=== PATIENT | female | born 1970 | race Caucasian/White ===

== ENCOUNTER 2020-12-18 18:33 | Inpatient (IN) | payer MEDICARE, SELFPAY ==
[2020-12-18 19:10] VITALS: BP 149/101; PULSE 130; RESP 20; TEMP 38.3; O2SAT 94
--- NOTE | 2020-12-18 19:37 | HPE_ITS ---
Date of service: 12/18/20 Time of Service: 19:39 Assessment and Plan Assessment and plan (1) Pyelonephritis: Status: Acute Assessment and plan: Cont abx treatment with Rocephin 2mg IV daily. IV fluids. Outpt culture of urine was obtained at her PCP several days before admission and grew Proteus. (2) Nephrolithiasis: Status: Chronic Assessment and plan: There is a question of a small stone in the distal left ureter; positive left hydronephrosis. Will consult Urology. Pain control with prn Toradol, morphine and acetaminophen. (3) Depression: Status: Chronic Assessment and plan: Cont home amitriptyline and sertraline. Qualifiers: Depression Type: unspecified Qualified Code(s): F32.9 - Major depressive disorder, single episode, unspecified (4) GERD (gastroesophageal reflux disease): Status: Chronic Assessment and plan: Cont home Omeprazole History of Present Illness History of Present Illness Chief Complaint: left-sided flank pain Narrative: This is a 50 yo female with a PMH of multiple episodes of cystitis, pyelonephrit is, nephrolithiasis, HTN, depression, obesity, GERD. She presented to [facility] ED c/o left flank pain that began several hours prior to presentation. She denied F/C, emesis, diarrhea. She was afebrile. WBC count 10.8. CT abd/pelvis indivated moderate left hydronephrosis with a questionable punctate calculus in the distal left ureter. Stranding in the left perinephric region. ED physician at [facility] consulted Urology at [facility]. She had recently had repair of right ureteral scarring. They felt she could be treated for pyelonephritis and they had no bed availability. [facility] also had no bed availability so was accepted in transfer here. Rocephin given in the ED. Toradol, morphine and IV fluids also given. Review of Systems All systems reviewed & are unremarkable except as noted in HPI and below PFSH Social History Smoking/Tobacco Use Status: Never Smoking risk assessment performed?: Yes Alcohol Intake: never Substance use type: does not use Do you feel safe at home: Yes Do you feel safe in your relationship?: Yes Meds Allergies and Home Medications Allergies Allergy/AdvReac Type Severity Reaction Status Date / Time levofloxacin [From Levaquin] Allergy Unverified 12/18/20 20:30 Home Medications Medication Instructions Recorded Confirmed Type cefpodoxime 200 mg PO BID #20 tab 12/21/20 Rx Exam Const General: cooperative and no acute distress Nutritional Appearance: obese Orientation: alert and oriented x3 Eyes Sclera: sclerae normal Pupils: PERRL Neck Neck: full ROM and no JVD Resp Effort & Inspection: normal respiratory effort Auscultation: clear to auscultation bilaterally Cardio Rate: regular rate Rhythm: regular rhythm Heart Sounds: S1 normal and S2 normal GI Palpation: soft and nontender Back/Spine/Pelvis Back: CVA tenderness (Left) Skin General skin exam: no rashes or lesions noted Extrem General: no pedal edema and no calf tenderness Psych Appearance: grossly normal Mental Status: mental status grossly normal Speech and Movement: speech and movement normal Mood: congruent mood Affect: normal affect Results Labs Result diagrams: 12/21/20 06:33 12/20/20 06:44
[2020-12-18 19:52] VITALS: BP 149/101; PULSE 130; RESP 20; TEMP 38.3; O2SAT 94
[2020-12-18 20:03] VITALS: TEMP 38.3
[2020-12-18] MEDS: Acetaminophen 325 MG TAB 650 MG PO (20:03)
[2020-12-18] MEDS: Lactated Ringers 1,000 ML 125 ML IV (20:03)
[2020-12-18] MEDS: Amitriptyline 25 MG TAB PO (20:16)
[2020-12-18] MEDS: Gabapentin 600 MG TAB PO (20:16)
[2020-12-18] MEDS: Metoprolol 50 MG TAB PO (20:16)
[2020-12-18] MEDS: Mometasone 220 MCG 14 DOSE INHALER 2 PUFF IH (20:52)
[2020-12-18 21:01] VITALS: BP 143/92; PULSE 112; RESP 18; TEMP 38.2; O2SAT 94
[2020-12-18] MEDS: LORazepam 0.5 MG TAB PO (21:17)
[2020-12-18 23:47] VITALS: BP 111/79; PULSE 109; RESP 18; TEMP 38.6; O2SAT 91
[2020-12-19] VITALS (9 sets, daily range): BP systolic 123–160; BP diastolic 81–91; PULSE 91–114; RESP 16–18; TEMP 36.9–38.6; O2SAT 92–95
[2020-12-19] MEDS: Acetaminophen 325 MG TAB 650 MG PO ×3 (00:24→20:13)
[2020-12-19] MEDS: Albuterol HFA 8 GM 60 PUFF INH IH (00:24)
[2020-12-19] MEDS: Ketorolac 30 MG/ML VIAL IVP ×2 (01:47→23:42)
[2020-12-19] MEDS: Lactated Ringers 1,000 ML 125 ML IV ×3 (04:25→23:44)
[2020-12-19 06:52] LABS: Abs Immature Grans 0.03 10^3/uL (0.0-0.06); Absolute Basophil Count 0.04 10^3/uL (0.0-0.2); Absolute Eosinophil Count 0.14 10^3/uL (0.0-0.7); Absolute Lymphocyte Count 0.79 10^3/uL (1.2-3.4); Absolute Monocyte Count 0.64 10^3/uL (0.1-0.8); Basophils % 0.4; Eosinophils % 1.5; HCT 40.5 % (36.0-46.0); HGB 13.2 g/dL (11.2-15.7); Immature Grans % 0.3; Lymphocytes % 8.3; MCH 29.3 pg (27.0-33.0); MCHC 32.6 % (32.0-36.0); MCV 89.8 fL (80-95); MPV 8.7 fL (8.0-11.0); Monocytes % 6.7; Neutrophils % 82.8; Nucleated RBC 0 %; Platelet Count 105 10^3/uL (130-400); RBC 4.51 10^6/uL (3.93-5.22); RDW 13.3 % (11.7-14.6); WBC 9.54 10^3/uL (4.4-10.8)
[2020-12-19 07:23] LABS: Anion Gap 10.2 mmol/L (3-11); BUN 12 mg/dL (7-18); CO2 27.8 mmol/L (21.0-32.0); CREATININE 1.1 mg/dL (0.55-1.02); Calcium 8.8 mg/dL (8.5-10.1); Chloride 105 mmol/L (98-107); Estimated GFR 52.79 (mL/min/1.73m2); Glucose 126 mg/dL (74-106); Potassium 3.7 mmol/L (3.5-5.1); Sodium 143 mmol/L (136-145)
[2020-12-19 07:24] LABS: Magnesium 1.4 mg/dL (1.8-2.4)
[2020-12-19] MEDS: Metoprolol 50 MG TAB PO ×2 (07:34→20:15)
[2020-12-19] MEDS: Omeprazole 20 MG CAPCR 40 MG PO (07:34)
[2020-12-19] MEDS: Gabapentin 600 MG TAB PO ×3 (07:34→20:15)
[2020-12-19] MEDS: Amitriptyline 25 MG TAB PO ×2 (07:34→20:15)
[2020-12-19] MEDS: cefTRIAXone 2 GM/50 ML BAG IVPB (07:38)
[2020-12-19] MEDS: Sertraline 50 MG TAB PO (07:38)
[2020-12-19] MEDS: Enoxaparin 40 MG/0.4 ML SYR SC (07:38)
--- NOTE | 2020-12-19 09:08 | PDOC.CMIN ---
- If Service Date Differs Date of service: 12/19/20 Time of Service: 09:08 Care Management Initial Assess REASON FOR HOSPITALIZATION:: Pylonephritis PAST MEDICAL HISTORY/PAST SURGICAL HISTORY:: GERD. Depression. Nephrolithiasis PREVIOUS FUNCTIONAL STATUS/SOCIAL/FAMILY SUPPORTS:: Blessing lives with her in [place]. She is independent at baseline and drives. She has a son Amilcar Scott who is supportive. She shared that she has been on disability since 2006 due to chronic health issues. CURRENT FUNCTIONAL STATUS:: Blessing was laying in bed when CM met with her. She reports that she is tired but comfortable. She's had hematuria today and denies pain or dysuria. Blessing shares that she's had ongoing problems with her kidneys and saw a Urologist at [facility] for a ureter repair about 8 months ago. ADVANCE DIRECTIVES:: None on file, CM gave her a copy. Has patient been provided with info about the portal/API?: Yes Did the patient sign up for the portal?: No CODE STATUS:: Full Code INSURANCE COVERAGE / FINANCIAL ISSUES:: Medicare CURRENT HOME/COMMUNITY SERVICES/EQUIPMENT:: None PRIMARY CARE PHYSICIAN:: Teresa Gay PATIENT/FAMILY EDUCATION NEEDS:: Review discharge instructions and plan to follow up with outpatient providers, ask me three. TRANSPORTATION:: via private vehicle with . PLAN:: Discharge home when medically cleared. Follow up with PCP and urology.
[2020-12-19] MEDS: Mometasone 220 MCG 14 DOSE INHALER 2 PUFF IH ×2 (09:43→20:15)
--- NOTE | 2020-12-19 13:29 | W.UROLOGYCON ---
Date of service: 12/19/20 Time of Service: 13:29 Assessment and Plan Assessment and plan (1) Pyelonephritis: Status: Acute (2) Nephrolithiasis: Status: Chronic Assessment and plan: Clinically, she has improved since admission. Based on the reported size of any left-sided stone, I would expect that she would be able to pass her stone with conservative management. If she remains afebrile for the next 24 hours, I would have no problem with discharging her with an oral antibiotic and pain management. She is already established with the urology team at the [facility], so I would ask her to follow-up with them. I would be available for any emergent urologic care that might be necessary closer to home. History of Present Illness History of Present Illness Chief Complaint: Pyelonephritis Narrative: This is a 50-year-old woman who has received her previous urologic care at the [facility]. She was transferred to our facility yesterday from [facility]. She presented to [facility] with left flank pain, nausea, vomiting and fevers. She was evaluated with a CT scan (not available through our EMR) that describes a new onset of left hydronephrosis and the possibility of a small left distal ureteral stone. She does have a past history of recurrent urinary tract infections and pyelonephritis. She had a positive urine culture from this weekend, but had not yet been started on antibiotics. Her urine grew Proteus that was jimenez sensitive. Based on the emergency room providers notes from [facility], the urology team at the [facility] was consulted and recommended antibiotics and hydration for presumed pyelonephritis. No beds were available at [facility] or [facility], so she was admitted here at [facility]. Since her admission, her pain has improved. She has not passed a stone as far she knows. Previously, she has had multiple stone procedures, but they have all been on her right side. She has been able to pass small stones previously but has also required ESWL and ureteroscopy for the right side. Because of multiple procedures, she developed a ureteral stricture and underwent a ureteral stricture repair using a buccal mucosal graft. She estimates that her last stone procedure was about 6-12 months ago. She has undergone metabolic testing which she tells me that no specific abnormality has been identified Review of Systems Narrative: No fevers or chills since yesterday No vision change or dysphasia No diabetes or thyroid No shortness of breath, cough or hemoptysis No chest pain or palpitations Hx GERD. No hepatitis, ulcers, jaundice, diarrhea or constipation No seizures, strokes or peripheral neuropathy No bleeding disorders or anemia No gout PFSH Social History Smoking/Tobacco Use Status: Never Smoking risk assessment performed?: Yes Alcohol Intake: never Substance use type: does not use Do you feel safe at home: Yes Do you feel safe in your relationship?: Yes Exam Narrative Exam Narrative: She looks fairly comfortable at this point. She does not appear septic or toxic Her vital signs are documented elsewhere Her chest wall motion is normal. She is not short of breath at rest. There is no CVA tenderness. There is no guarding or rebound abdominal tenderness She is awake and alert I am unable to review her CT films at this time Results Last Vital Signs Temp 36.9 C 12/19/20 07:32 Pulse 97 H 12/19/20 07:32 Resp 18 12/19/20 07:32 BP 143/84 H 12/19/20 07:32 Pulse Ox 92 12/19/20 07:32 Labs Result diagrams: 12/19/20 06:28 12/19/20 06:28 Labs: Laboratory Results - last 24 hr 12/19/20 12/19/20 12/19/20 06:28 06:28 06:28 WBC 9.54 RBC 4.51 Hgb 13.2 Hct 40.5 MCV 89.8 MCH 29.3 MCHC 32.6 RDW 13.3 Plt Count 105 L MPV 8.7 Immature Gran % 0.3 Neutrophils % 82.8 Lymphocytes % 8.3 Monocytes % 6.7 Eosinophils % 1.5 Basophils % 0.4 Nucleated RBC % 0 Absolute Neutrophils 7.90 H Absolute Lymphocytes 0.79 L Absolute Monocytes 0.64 Absolute Eosinophils 0.14 Absolute Basophils 0.04 Sodium 143 Potassium 3.7 Chloride 105 Carbon Dioxide 27.8 Anion Gap 10.2 BUN 12 Creatinine 1.1 H Estimated GFR/1.73 m2 52.79 Glucose 126 H Calcium 8.8 Magnesium 1.4 L
--- NOTE | 2020-12-19 14:38 | W.PM.PROGNOT ---
Date of Service Date of service: 12/19/20 Time of Service: 14:38 Assessment and Plan Assessment and plan (1) Pyelonephritis: Status: Acute Assessment and plan: Cont abx treatment with Rocephin 2mg IV daily. IV fluids. Outpt culture of urine was obtained at her PCP several days before admission and grew Proteus. (2) Nephrolithiasis: Status: Chronic Assessment and plan: There is a question of a small stone in the distal left ureter; positive left hydronephrosis. Will consult Urology. Pain control with prn Toradol, morphine and acetaminophen. flomax added (3) Depression: Status: Chronic Assessment and plan: Cont home amitriptyline and sertraline. Qualifiers: Depression Type: unspecified Qualified Code(s): F32.9 - Major depressive disorder, single episode, unspecified (4) GERD (gastroesophageal reflux disease): Status: Chronic Assessment and plan: Cont home Omeprazole discussed with DR Arenas Subjective Subjective Patient reports: no new complaints, feels better, pain is less, tolerating liquids well, tolerating a regular diet, voiding w/o difficulty and afebrile Interval history since last seen: max temp overnight 38.6 Exam Const General: cooperative and no acute distress Nutritional Appearance: obese Orientation: alert and oriented x3 Eyes Sclera: sclerae normal Pupils: PERRL Neck Neck: full ROM and no JVD Resp Effort & Inspection: normal respiratory effort Auscultation: clear to auscultation bilaterally Cardio Rate: regular rate Rhythm: regular rhythm Heart Sounds: S1 normal and S2 normal GI Palpation: soft and nontender Back/Spine/Pelvis Back: CVA tenderness (Left) Skin General skin exam: no rashes or lesions noted Extrem General: no pedal edema and no calf tenderness Psych Appearance: grossly normal Mental Status: mental status grossly normal Speech and Movement: speech and movement normal Mood: congruent mood Affect: normal affect Objective Last Vital Signs Temp 36.9 C 12/19/20 07:32 Pulse 97 H 12/19/20 07:32 Resp 18 12/19/20 07:32 BP 143/84 H 12/19/20 07:32 Pulse Ox 92 12/19/20 07:32 Laboratory Results - last 24 hr 12/19/20 12/19/20 12/19/20 06:28 06:28 06:28 WBC 9.54 RBC 4.51 Hgb 13.2 Hct 40.5 MCV 89.8 MCH 29.3 MCHC 32.6 RDW 13.3 Plt Count 105 L MPV 8.7 Immature Gran % 0.3 Neutrophils % 82.8 Lymphocytes % 8.3 Monocytes % 6.7 Eosinophils % 1.5 Basophils % 0.4 Nucleated RBC % 0 Absolute Neutrophils 7.90 H Absolute Lymphocytes 0.79 L Absolute Monocytes 0.64 Absolute Eosinophils 0.14 Absolute Basophils 0.04 Sodium 143 Potassium 3.7 Chloride 105 Carbon Dioxide 27.8 Anion Gap 10.2 BUN 12 Creatinine 1.1 H Estimated GFR/1.73 m2 52.79 Glucose 126 H Calcium 8.8 Magnesium 1.4 L
[2020-12-19] MEDS: MAGNESIUM SULFATE 2 GM/50 ML BAG IVPB (14:58)
--- NOTE | 2020-12-19 16:17 | CHAPLAIN ---
Blessing was resting in bed when I visited. She said she is tired. Her youngest son starts kindergarten today and she is sad to be missing that.
[2020-12-19] MEDS: LORazepam 0.5 MG TAB PO (21:54)
[2020-12-19] MEDS: Normal Saline Flush 10 ML SYR IVP (23:43)
[2020-12-20] VITALS (8 sets, daily range): BP systolic 135–171; BP diastolic 90–105; PULSE 80–87; RESP 16–18; TEMP 36.7–38.1; O2SAT 91–95
[2020-12-20] MEDS: Acetaminophen 325 MG TAB 650 MG PO (02:17)
[2020-12-20] MEDS: Omeprazole 20 MG CAPCR 40 MG PO (06:45)
[2020-12-20 07:37] LABS: HCT 37.5 % (36.0-46.0); HGB 12.2 g/dL (11.2-15.7); MCH 29.5 pg (27.0-33.0); MCHC 32.5 % (32.0-36.0); MCV 90.8 fL (80-95); MPV 8.8 fL (8.0-11.0); RBC 4.13 10^6/uL (3.93-5.22); RDW 13.3 % (11.7-14.6); RDW-SD 44.5 fL; WBC 6.85 10^3/uL (4.4-10.8)
[2020-12-20 07:46] LABS: Anion Gap 7.6 mmol/L (3-11); BUN 11 mg/dL (7-18); CO2 29.4 mmol/L (21.0-32.0); Calcium 8.5 mg/dL (8.5-10.1); Chloride 107 mmol/L (98-107); Estimated GFR 58.93 (mL/min/1.73m2); Glucose 121 mg/dL (74-106); Potassium 3.5 mmol/L (3.5-5.1); Sodium 144 mmol/L (136-145)
[2020-12-20 07:57] LABS: Platelet Count 89 10^3/uL (130-400)
[2020-12-20] MEDS: Lactated Ringers 1,000 ML 125 ML IV ×2 (08:15→16:25)
[2020-12-20] MEDS: Mometasone 220 MCG 14 DOSE INHALER 2 PUFF IH ×2 (08:40→19:18)
--- NOTE | 2020-12-20 09:15 | PDOC.CMPRO ---
- If Service Date Differs Date of service: 12/20/20 Time of Service: 09:15 Care Management Progress Note S/O: Blessing was sitting up in bed when CM met with her. She was awake, alert, pleasant and easily engaged in conversation. She feels better today, but continues to have hematuria. She had a temp last night of 38C and is a little disappointed because it is her understanding that she has to go 24 hours without a fever before she is discharged. CM continues to follow. A: 50 year old female admitted to [facility] on 12/18/20 for pylonephritis P:Discharge home via private vehicle with when medically cleared. Follow up with PCP and urology. CM continues to support.
[2020-12-20] MEDS: Amitriptyline 25 MG TAB PO ×2 (09:31→19:18)
[2020-12-20] MEDS: Sertraline 50 MG TAB PO (09:31)
[2020-12-20] MEDS: Gabapentin 600 MG TAB PO ×3 (09:31→19:18)
[2020-12-20] MEDS: Metoprolol 50 MG TAB PO ×2 (09:31→19:18)
[2020-12-20] MEDS: Enoxaparin 40 MG/0.4 ML SYR SC (09:31)
[2020-12-20] MEDS: cefTRIAXone 2 GM/50 ML BAG IVPB (09:32)
[2020-12-20] MEDS: Normal Saline Flush 10 ML SYR IVP (09:32)
--- NOTE | 2020-12-20 10:03 | W.PM.PROGNOT ---
Date of Service Date of service: 12/20/20 Time of Service: 10:03 Assessment and Plan Assessment and plan (1) Pyelonephritis: Status: Acute Assessment and plan: Cont abx treatment with Rocephin 2mg IV daily, day 3. was still febrile last night. IV fluids. Outpt culture of urine was obtained at her PCP several days before admission and grew Proteus. (2) Nephrolithiasis: Status: Chronic Assessment and plan: Urology following. agrees with current plan. kidney function remains stable. Pain control with prn Toradol, morphine and acetaminophen. flomax added (3) Depression: Status: Chronic Assessment and plan: Cont home amitriptyline and sertraline. Qualifiers: Depression Type: unspecified Qualified Code(s): F32.9 - Major depressive disorder, single episode, unspecified (4) GERD (gastroesophageal reflux disease): Status: Chronic Assessment and plan: Cont home Omeprazole discussed with DR Arenas Subjective Subjective Patient reports: tolerating liquids well, voiding w/o difficulty and fever (max temp 38.6) Exam Const General: cooperative and no acute distress Nutritional Appearance: obese Orientation: alert and oriented x3 Eyes Sclera: sclerae normal Pupils: PERRL Neck Neck: full ROM and no JVD Resp Effort & Inspection: normal respiratory effort Auscultation: clear to auscultation bilaterally Cardio Rate: regular rate Rhythm: regular rhythm Heart Sounds: S1 normal and S2 normal GI Palpation: soft and nontender Back/Spine/Pelvis Back: CVA tenderness (Left) Skin General skin exam: no rashes or lesions noted Extrem General: no pedal edema and no calf tenderness Psych Appearance: grossly normal Mental Status: mental status grossly normal Speech and Movement: speech and movement normal Mood: congruent mood Affect: normal affect Objective Last Vital Signs Temp 36.7 C 12/20/20 06:41 Pulse 86 12/20/20 06:41 Resp 16 12/20/20 06:41 BP 135/94 H 12/20/20 06:41 Pulse Ox 93 12/20/20 06:41 Laboratory Results - last 24 hr 12/20/20 12/20/20 06:44 06:44 WBC 6.85 RBC 4.13 Hgb 12.2 Hct 37.5 MCV 90.8 MCH 29.5 MCHC 32.5 RDW 13.3 Plt Count 89 L MPV 8.8 Sodium 144 Potassium 3.5 Chloride 107 Carbon Dioxide 29.4 Anion Gap 7.6 BUN 11 Creatinine 1.0 Estimated GFR/1.73 m2 58.93 Glucose 121 H Calcium 8.5
[2020-12-20 12:09] LABS: Magnesium 1.8 mg/dL (1.8-2.4)
[2020-12-20] MEDS: LORazepam 0.5 MG TAB PO (21:11)
[2020-12-21] MEDS: Lactated Ringers 1,000 ML 125 ML IV ×2 (01:45→11:03)
[2020-12-21 06:45] LABS: HCT 35.6 % (36.0-46.0); HGB 11.6 g/dL (11.2-15.7); MCH 29.4 pg (27.0-33.0); MCHC 32.6 % (32.0-36.0); MCV 90.1 fL (80-95); MPV 8.9 fL (8.0-11.0); Platelet Count 102 10^3/uL (130-400); RBC 3.95 10^6/uL (3.93-5.22); RDW 12.9 % (11.7-14.6); WBC 6.35 10^3/uL (4.4-10.8)
[2020-12-21 07:43] VITALS: BP 160/92; PULSE 90; RESP 22; TEMP 36.7; O2SAT 91
[2020-12-21] MEDS: cefTRIAXone 2 GM/50 ML BAG IVPB (08:38)
[2020-12-21] MEDS: Amitriptyline 25 MG TAB PO (08:38)
[2020-12-21] MEDS: Normal Saline Flush 10 ML SYR IVP (08:38)
[2020-12-21] MEDS: Omeprazole 20 MG CAPCR 40 MG PO (08:38)
[2020-12-21] MEDS: Metoprolol 50 MG TAB PO (08:38)
[2020-12-21] MEDS: Sertraline 50 MG TAB PO (08:38)
[2020-12-21] MEDS: Gabapentin 600 MG TAB PO ×2 (08:38→13:52)
[2020-12-21] MEDS: Mometasone 220 MCG 14 DOSE INHALER 2 PUFF IH (10:00)
--- NOTE | 2020-12-21 13:43 | W.PM.DS.N ---
Date of service: 12/21/20 Time of Service: 13:43 DS: Diagnosis Discharge Diagnosis (1) Pyelonephritis: Status: Acute (2) Nephrolithiasis: Status: Chronic (3) Depression: Status: Chronic (4) GERD (gastroesophageal reflux disease): Status: Chronic Discharge Plan Disposition Patient Disposition: HOME Condition: Stable Discharge Details Reason For Visit: Pyelonephritis Admit Date/Time: 12/18/20 18:33 Admit Provider: Maurice Arenas Attending Provider: Maurice Arenas Primary Care Provider: Teresa Gay Hospital Course Hospital Course: This is a 50 year old female with a history of multiple episodes of cystitis, pyelonephritis, nephrolithiasis, HTN, depression, obesity, GERD. She presented to [facility] ED with left flank pain that began several hours prior to presentation. Her work up showed a WBC count 10.8. CT abd/pelvis with moderate left hydronephrosis with a questionable punctate calculus in the distal left ureter. Stranding in the left perinephric region. ED physician at [facility] consulted Urology at [facility]. She had recently had repair of right ureteral scarring. They felt she could be treated for pyelonephritis but they had no bed availability. [facility] also had no bed availability so we were called and she was accepted in transfer here. She was evaluated by Dr Maloney who was in agreement with continuing ceftriaxone and discharge to home once afebrile. She continued to spike fever in the evenings to 38.6. she has now been afebrile > 24 hours. she is feeling better. we will be discharging her on cefpodoxime to complete 10 more days. She will be discharged to home and will need f/u with her urologist oupatient. she is eating and drinking and no longer febrile. she is being discharged to home with no new services. discussed with Dr Arenas. Home Meds and New Rx's Prescriptions: New cefpodoxime 200 mg tablet 200 mg PO BID Qty: 20 RF: 0 Discharge Instructions Instructions: Kidney Infection (DC) Additional Instructions: drink at least 6-8 glasses of water daily to stay well hydrated. take medication as prescribed, even if you feel better follow up outpatient with your urologist as soon as possible Stand Alone Forms: Nursing Discharge Form Referrals: Teresa Gay [Primary Care Provider] - 01/08/21 8:00 am Activity:: Activity as Tolerated Equipment/Supplies:: No Equipment Needed Diet:: As Tolerated Discharge Orders Discharge Orders: Discharge Order (Routine); Ordered 12/21/20 Ordered By: Abby Espinoza DS: Summary Time Spent with Patient providing and/or coordinating discharge services: Greater than 30 minutes Status at Discharge Functional status at discharge: independent ambulation Overall status at discharge: patient is progressing back to baseline Mental Status: mental status grossly normal Speech and Movement: speech and movement normal Mood: congruent mood Affect: normal affect Exam Const General: cooperative and no acute distress Nutritional Appearance: obese Orientation: alert and oriented x3 Eyes Sclera: sclerae normal Pupils: PERRL Neck Neck: full ROM and no JVD Resp Effort & Inspection: normal respiratory effort Auscultation: clear to auscultation bilaterally Cardio Rate: regular rate Rhythm: regular rhythm Heart Sounds: S1 normal and S2 normal GI Palpation: soft and nontender Back/Spine/Pelvis Back: CVA tenderness (Left) Skin General skin exam: no rashes or lesions noted Extrem General: no pedal edema and no calf tenderness Psych Appearance: grossly normal Mental Status: mental status grossly normal Speech and Movement: speech and movement normal Mood: congruent mood Affect: normal affect DS: Data Vitals/I&O Vitals and I&O: Vital Signs Temperature 36.7 C 12/21/20 07:43 Temperature Source Tympanic 12/21/20 07:43 Pulse 90 12/21/20 07:43 Pulse Rhythm Regular 12/21/20 08:30 Respiratory Rate 22 12/21/20 07:43 Respiratory Effort 12/21/20 08:30 Respiratory Depth Normal 12/21/20 08:30 Respiratory Pattern Normal 12/21/20 08:30 Blood Pressure 160/92 H 12/21/20 07:43 Pulse Oximetry 91 L 12/21/20 07:43 Oxygen Delivery Method Room Air 12/21/20 07:43 Oxygen Flow Rate 0 12/21/20 07:43 Pain Level 0 12/21/20 07:43 Comment 12/20/20 23:39 Intake & Output 12/20/20 12/21/20 12/21/20 23:59 11:59 23:59 Intake Total 1600 / 2770 2000 / 2400 400 / 2400 Output Total 600 / 2000 900 / 900 Balance 1000 / 770 1100 / 1500 400 / 1500 Weight 110.3 kg Intake: IV 999 Oral 600 / 720 400 / 400 Output: Urine 600 / 2000 900 / 900 Other: Urine Color Light Jeimy Yellow Urine Appearance Clear Clear Urine Odor None Voiding Methods Toilet Toilet Data Completed and Pending Labs on day of discharge: Labs from last 24 hours 12/21/20 06:33 WBC 6.35 RBC 3.95 Hgb 11.6 Hct 35.6 L MCV 90.1 MCH 29.4 MCHC 32.6 RDW 12.9 Plt Count 102 L MPV 8.9 Preliminary micro results at discharge 12/18/20 22:00 Blood Culture - Preliminary Blood NO GROWTH 48 HOURS 12/18/20 22:00 Blood Culture - Preliminary Blood NO GROWTH 48 HOURS [facility] Social History Smoking/Tobacco Use Status: Never Smoking risk assessment performed?: Yes Alcohol Intake: never Substance use type: does not use Do you feel safe at home: Yes Do you feel safe in your relationship?: Yes
--- NOTE | 2020-12-21 16:15 | PDOC.CMDIS ---
- If Service Date Differs Date of service: 12/21/20 Time of Service: 16:15 LACE Index Scoring Tool - Questions: Length of Stay (in days): 1 Acuity (Admit via E.D.?): Yes Comorbidities: Diabetes w/o Complication, Any Tumor E.D. Visits: 1 - Answers: Total Score: 8 Risk of Readmission: Low Risk Care Management Discharge Reason for Hospitalization: Pylonephritis Discharge Plan: Blessing will return home today with no services. Her will drive her home via private vehicle. She will follow up with her PCP and discharge plan of care. She is happy to be going home. Patient/Family Education Needs: Review discharge instructions regarding activity levels and medications, discussion of self care needs including ask me three.
== END 2020-12-21 15:55 | disposition home or self-care (01) | DRG 690 ==
PROVIDERS: Nurse Practitioner Acute Care; Admitting Provider Family Medicine; PCP Nurse Practitioner Family; Visit Provider Family Medicine
DX: N13.6 Pyonephrosis (principal); Z68.41 Body mass index [BMI] 40.0-44.9, adult; K21.9 Gastro-esophageal reflux disease without esophagitis; F32.9 Major depressive disorder, single episode, unspecified; I10 Essential (primary) hypertension; E66.9 Obesity, unspecified; B96.4 Proteus (mirabilis) (morganii) as the cause of diseases classified elsewhere
CPT/HCPCS: 36410; 36415; 80048; 85027; 87040; 94640; 99222; J1650; 83735; 85025; 99232; 99233; 99239; J1885

== ENCOUNTER → 2020-12-19 07:49 | Outpatient (BNVA) | payer MEDICARE, SELFPAY | PROVIDERS: Visit Provider Nurse Practitioner Gerontology | DX: R69 Illness, unspecified (principal) ==

== ENCOUNTER 2022-07-24 16:05 | Outpatient (REF) | payer MEDICARE, SELFPAY ==
[2022-07-24 19:59] LABS: HCT 45.1 % (36.0-46.0); HGB 15.3 g/dL (11.2-15.7)
[2022-07-24 20:22] LABS: ALT 46 U/L (14-59); AST 40 U/L (15-37); Albumin 4.1 g/dL (3.4-5.0); Alkaline Phosphatase 115 U/L (46-116); Anion Gap 9.1 mmol/L (3-11); BUN 13 mg/dL (7-18); Bilirubin, Total 0.3 mg/dL (0.2-1.0); CO2 28.9 mmol/L (21.0-32.0); Calcium 9.5 mg/dL (8.5-10.1); Calculated LDL 135 mg/dL (<100); Chloride 103 mmol/L (98-107); Cholesterol 233 mg/dL (<200); Estimated GFR 68.63 (mL/min/1.73m2); Glucose 109 mg/dL (74-106); HDL Cholesterol 43 mg/dL (40-60); Magnesium 1.9 mg/dL (1.8-2.4); Sodium 141 mmol/L (136-145); Total Protein 8.1 g/dL (6.4-8.2); Triglyceride 279 mg/dL (<150)
[2022-07-25 18:20] LABS: Hemoglobin A1C 5.9 % (<5.7)
== END 2022-07-24 16:06 | disposition home or self-care (01) ==
LOC: NCHCN 16:05
PROVIDERS: Visit Provider Nurse Practitioner Family
DX: I10 Essential (primary) hypertension (principal); E78.5 Hyperlipidemia, unspecified; E66.01 Morbid (severe) obesity due to excess calories; R73.09 Other abnormal glucose
CPT/HCPCS: 80053; 80061; 83036; 83735; 85014; 85018

== ENCOUNTER 2023-03-12 12:08 | Outpatient (REF) | payer MEDICARE, SELFPAY ==
[2023-03-12 20:13] LABS: ALT 26 U/L (14-59); AST 23 U/L (15-37); Albumin 3.8 g/dL (3.4-5.0); Alkaline Phosphatase 97 U/L (46-116); Anion Gap 8.8 mmol/L (3-11); BUN 19 mg/dL (7-18); Bilirubin, Total 0.3 mg/dL (0.2-1.0); CO2 27.2 mmol/L (21.0-32.0); CREATININE 1.1 mg/dL (0.55-1.02); Calcium 9.3 mg/dL (8.5-10.1); Calculated LDL 118 mg/dL (<100); Chloride 105 mmol/L (98-107); Cholesterol 227 mg/dL (<200); Estimated GFR 60.84 (mL/min/1.73m2); Glucose 113 mg/dL (74-106); HDL Cholesterol 34 mg/dL (40-60); Potassium 3.9 mmol/L (3.5-5.1); Sodium 141 mmol/L (136-145); Total Protein 7.8 g/dL (6.4-8.2); Triglyceride 376 mg/dL (<150)
== END 2023-03-12 12:09 | disposition home or self-care (01) ==
LOC: NCHCN 12:08
PROVIDERS: PCP Nurse Practitioner Family; Visit Provider Nurse Practitioner Family
DX: I10 Essential (primary) hypertension (principal)
CPT/HCPCS: 80053; 80061

== ENCOUNTER 2023-09-16 13:03 | Outpatient (REF) | payer MEDICARE, SELFPAY ==
[2023-09-16 18:32] LABS: Hemoglobin A1C 5.7 % (<5.7)
[2023-09-16 18:34] LABS: ALT 30 U/L (14-59); AST 22 U/L (15-37); Albumin 4.1 g/dL (3.4-5.0); Alkaline Phosphatase 100 U/L (46-116); Anion Gap 6.3 mmol/L (3-11); BUN 26 mg/dL (7-18); Bilirubin, Total 0.5 mg/dL (0.2-1.0); CO2 29.7 mmol/L (21.0-32.0); CREATININE 1.2 mg/dL (0.55-1.02); Calcium 9.6 mg/dL (8.5-10.1); Calculated LDL 145 mg/dL (<100); Chloride 102 mmol/L (98-107); Cholesterol 253 mg/dL (<200); Estimated GFR 54.46 (mL/min/1.73m2); Glucose 112 mg/dL (74-106); HDL Cholesterol 39 mg/dL (40-60); Potassium 3.9 mmol/L (3.5-5.1); Sodium 138 mmol/L (136-145); Total Protein 8.1 g/dL (6.4-8.2); Triglyceride 347 mg/dL (<150)
== END 2023-09-16 13:04 | disposition home or self-care (01) ==
LOC: NCHCN 13:03
PROVIDERS: PCP Nurse Practitioner Family; Visit Provider Nurse Practitioner Family
DX: E78.5 Hyperlipidemia, unspecified (principal); R73.03 Prediabetes; I10 Essential (primary) hypertension
CPT/HCPCS: 80053; 80061; 83036

== ENCOUNTER 2023-12-17 23:59 | Outpatient (REF) | payer MEDICARE, SELFPAY ==
[2023-12-17 21:20] LABS: ALT 26 U/L (14-59); AST 22 U/L (15-37); Albumin 4.1 g/dL (3.4-5.0); Alkaline Phosphatase 106 U/L (46-116); Anion Gap 8.3 mmol/L (3-11); BUN 26 mg/dL (7-18); Bilirubin, Total 0.39 mg/dL (0.2-1.0); CO2 29.7 mmol/L (21.0-32.0); CREATININE 1.1 mg/dL (0.55-1.02); Calcium 9.4 mg/dL (8.5-10.1); Calculated LDL 60 mg/dL (<100); Chloride 103 mmol/L (98-107); Cholesterol 143 mg/dL (<200); Estimated GFR 60.46 (mL/min/1.73m2); Glucose 119 mg/dL (74-106); HDL Cholesterol 36 mg/dL (40-60); Potassium 4.3 mmol/L (3.5-5.1); Sodium 141 mmol/L (136-145); Total Protein 7.9 g/dL (6.4-8.2); Triglyceride 236 mg/dL (<150)
--- OUTSIDE RECORDS SUMMARY | 2023-12-18 00:12 | XMS_ITS | Continuity of Care Document ---
Author Organization [facility] Address [address] [place] [address] Care Team Providers Care Track Leader Name Role Phone Arabella Godinez Primary Care Physician Encounter [facility] [id number] Date(s): 09/05/22 - 09/05/[address] [address] Discharge Disposition: Home or Self Care Attending Physician: Arabella Godinez MANAGER HEAVY EQUIPMENT Admitting Physician: Arabella Godinez MANAGER HEAVY EQUIPMENT Referring Physician: Arabella Godinez MANAGER HEAVY EQUIPMENT Allergies, Adverse Reactions, Alerts Substance Reaction Severity Status ADHESIVE TAPE Blisters Other Moderate Active levoFLOXacin 1 Skin rash Moderate Active 1tolerates cipro, got rash from IV levaquin Assessment and Plan Future Appointments Immunizations Given and Recorded Vaccine Date Status Refusal Reason influenza virus vaccine, live 02/11/20 Recorded influenza virus vaccine, live 1 04/02/18 Recorded influenza virus vaccine, live 03/03/15 Recorded influenza virus vaccine, inactivated 02/12/13 Luis rded influenza virus vaccine, inactivated 02/26/12 Luis rded influenza virus vaccine, inactivated 01/18/11 Luis rded tetanus/diphth/pertuss (Tdap) adult/adol 03/16/12 Recorded varicella virus vaccine 04/28/00 Recorded tetanus-diphth toxoids (Td) adult/adol 04/28/00 Re corded 1Result Comment: vaccine tolerated well by pt. Medications albuterol 90 mcg/inh aerosol inhaler 1 puffs, Inhale, every 4 hr, PRN as needed for wheezing, # 6.7 g, 0 Refill(s), Pharmacy: [facility] #58, 165, cm, 04/19/22 15:03:00 EST, Height/Length Dosing, 112, kg, 04/19/22 15:03:00 EST, Weight Dosing Start Date: 04/19/22 Status: Ordered amitriptyline 25 mg oral tablet 25 mg = 1 tab, Oral, BID, # 180 tab, 0 Refill(s), Pharmacy: [facility] #58, 165, cm, 04/19/2215:03:00 EST, Height/Length Dosing, 112, kg, 04/19/22 15:03:00 EST, Weight Dosing Start Date: 04/23/22 Status: Ordered benzonatate 200 mg oral capsule 200 mg = 1 cap, Oral, TID, PRN as needed for cough, # 30 cap, 0 Refill(s), Pharmacy: [facility] #58, 165, cm, 04/19/22 15:03:00 EST, Height/Length Dosing, 112, kg, 04/19/22 15:03:00 EST, WeightDosing Start Date: 04/19/22 Status: Ordered chlordiazepoxide-clidinium 5 mg-2.5 mg oral capsule See Instructions, PRN other (see comment), 1 cap Oral every 4-6 hours as needed, # 180 cap, 0 Refill(s), Pharmacy: [facility] #58, 165, cm, 04/19/22 15:03:00 EST, Height/Length Dosing, 112, kg,04/19/22 15:03:00 EST, Weight Dosing Start Date: 04/23/22 Status: Ordered gabapentin 600 mg oral tablet 600 mg = 1 tab, Oral, TID, # 270 tab, 0 Refill(s), Pharmacy: [facility] #58, 165, cm, 04/19/22 15:03:00 EST, Height/Length Dosing, 112, kg, 04/19/22 15:03:00 EST, Weight Dosing Start Date: 04/23/22 Status: Ordered ibuprofen 800 mg oral tablet 800 mg = 1 tab, Oral, every 8 hr, # 30 tab, 0 Refill(s), Pharmacy: [facility] #58, 165, cm, 04/19/22 15:03:00 EST, Height/Length Dosing, 112, kg, 04/19/22 15:03:00 EST, Weight Dosing Start Date: 04/19/22 Status: Ordered metoprolol tartrate 50 mg oral tablet 50 mg = 1 tab, Oral, BID, for 90 days, # 180 tab, 0 Refill(s), Pharmacy: [facility] #58, 165,cm, 04/19/22 15:03:00 EST, Height/Length Dosing, 112, kg, 04/19/22 15:03:00 EST, Weight Dosing Start Date: 04/23/22 Status: Ordered omeprazole 40 mg oral delayed release capsule 40 mg = 1 cap, Oral, Daily, pt. needs appt. before next refill, # 90 cap, 0 Refill(s), Pharmacy: [facility] #58, 165, cm, 04/19/22 15:03:00 EST, Height/Length Dosing, 112, kg, 04/19/22 15:03:00EST, Weight Dosing Start Date: 07/23/22 Status: Ordered piroxicam 10 mg oral capsule 10 mg = 1 cap, Oral, BID, # 180 cap, 0 Refill(s), Pharmacy: [facility] #58, 165, cm, 04/19/2215:03:00 EST, Height/Length Dosing, 112, kg, 04/19/22 15:03:00 EST, Weight Dosing Start Date: 04/23/22 Status: Ordered sertraline 50 mg oral tablet 50 mg = 1 tab, Oral, Daily, # 90 tab, 0 Refill(s), Pharmacy: [facility] #58, 165, cm, 04/19/22 15:03:00 EST, Height/Length Dosing, 112, kg, 04/19/22 15:03:00 EST, Weight Dosing Start Date: 04/23/22 Status: Ordered Tylenol Extra Strength 500 mg oral tablet 500 mg = 1 tab, Oral, every 4 hr, PRN as needed for pain, # 24 tab, 0 Refill(s), Pharmacy: [facility] #58, 165, cm, 04/19/22 15:03:00 EST, Height/Length Dosing, 112, kg, 04/19/22 15:03:00 EST, Weight Dosing Start Date: 04/19/22 Status: Ordered Problem List Condition Confirmation Course Effective Dates Status H ealth Status Informant Abdominal pain Confirmed Active Acute complication due to diabetes mellitus 1 Confirmed Active Chronic interstitial cystitis Confirmed Active Clostridioides difficile infection Confirmed 05/10/20 Active Cyst of ovary Confirmed Active Depressive disorder Confirmed Active Endometriosis (clinical) Confirmed Active ESBL - Extended spectrum shpf-nvdylsifn-nqrfil ing bacteria 2 Confirmed 08/14/20 Active Generalized intra-abdominal and pelvic swelling, mass and lump Confirmed Active Heartburn Confirmed Active Human papilloma virus infection Confirmed Active Hyperlipidemia Confirmed Active Hypertensive disorder Confirmed Active Finger injury Confirmed Active Insomnia Confirmed Active Irritable bowel syndrome Confirmed Active Kidney stone Confirmed Active Lack of energy Confirmed Active Liver function tests abnormal Confirmed Active Low back pain Confirmed Active Recurrent urinary tract infection Confirmed 08/24/20 Active 1From 07-16-2021 visit: Labs to make sure blood sugars remain controlled. 2ESBL in urine Procedures Procedure Date Related Diagnosis Body Site Status Cystoscopy 1 05/28/20 Completed Extracorporeal shockwave lit hotripsy for renal calculus 12/26/17 Completed Total hysterectomy 2 07/11/16 Comp leted ESWL of kidney 3 02/26/16 Complete d Drainage of ovarian cyst 4 02/22/09 Completed Laparoscopy with removal of adnexal structures 5 12/01/05 Completed Diagnostic laparoscopy 6 05/13/04 Completed Tubal ligation 1995 Completed 1per [facility] urology 2with right salpingectomy, USVVS: Pelvic pain and uterine prolapse. 3Right, kidney stones crushed and Lithotripsy in left Kidney in 03/2016 4right side, Dr [facility]za at [facility] 5Left ovarian cyst 6Ablation of endometriosis and removal of cervical polyp. Social History Social History Type Response Smoking Status Smoking tobacco use: Former tobacco user;Never; Number of years: 14; 1 entered on: 10/10/21 Sex Female 1quit 2008 Patient Care team information Care Team Personnel Name: Arabella Godinez MANAGER HEAVY EQUIPMENT Position: PowerChart View Only Member Role: Primary Care Physician Address: Address: [address] [place] [address]- [place] Care Team Related Persons Name: WILLOWHIRA Address: Home [address] [facility], [id number]
--- OUTSIDE RECORDS SUMMARY | 2023-12-18 00:12 | XMS_ITS | Continuity of Care Document ---
Author Organization [facility] Address [address] [place] [address] Care Team Providers Care Repair Servicer Name Role Phone Arabella Godinez Primary Care Physician [phone] [facility] [id number] Date(s): 07/31/22 - 07/31/[address] [address] Discharge Disposition: Home or Self Care Attending Physician: Arabella Godinez HOP SEPARATOR Admitting Physician: Arabella Godinez HOP SEPARATOR Referring Physician: Arabella Godinez HOP SEPARATOR Allergies, Adverse Reactions, Alerts Substance Reaction Severity [...] wheezing, # 6.7 g, 0 Refill(s), Pharmacy: [facility], 165, cm, 04/19/22 15:03:00 EST, Height/Length Dosing, 112, kg, 04/19/22 15:03:00 EST, Weight Dosing Start Date: 04/19/22 Status: Ordered amitriptyline 25 mg oral tablet 25 mg = 1 tab, Oral, BID, # 180 tab, 0 Refill(s), Pharmacy: [facility] #58, 165, cm, 04/19/2215:03:00 EST, Height/Length Dosing, 112, kg, 04/19/22 15:03:00 EST, Weight Dosing Start Date: 04/23/22 Status: Ordered benzonatate 200 mg oral capsule 200 mg = 1 cap, Oral, TID, PRN as needed for cough, # 30 cap, 0 Refill(s), Pharmacy: [facility] #58, 165, cm, 04/19/22 15:03:00 EST, Height/Length Dosing, 112, kg, 04/19/22 15:03:00 EST, WeightDosing Start Date: 04/19/22 Status: Ordered chlordiazepoxide-clidinium 5 mg-2.5 mg oral capsule See Instructions, PRN other (see comment), 1 cap Oral every 4-6 hours as needed, # 180 cap, 0 Refill(s), Pharmacy: [facility] #58, 165, cm, 04/19/22 15:03:00 EST, Height/Length Dosing, 112, kg,04/19/22 15:03:00 EST, Weight Dosing Start Date: 04/23/22 Status: Ordered gabapentin 600 mg oral tablet 600 mg = 1 tab, Oral, TID, # 270 tab, 0 Refill(s), Pharmacy: [facility] #58, 165, cm, 04/19/22 15:03:00 EST, Height/Length Dosing, 112, kg, 04/19/22 15:03:00 EST, Weight Dosing Start Date: 04/23/22 Status: Ordered ibuprofen 800 mg oral tablet 800 mg = 1 tab, Oral, every 8 hr, # 30 tab, 0 Refill(s), Pharmacy: [facility] #58, 165, cm, 04/19/22 15:03:00 EST, Height/Length Dosing, 112, kg, 04/19/22 15:03:00 EST, Weight Dosing Start Date: 04/19/22 Status: Ordered metoprolol tartrate 50 mg oral tablet 50 mg = 1 tab, Oral, BID, for 90 days, # 180 tab, 0 Refill(s), Pharmacy: [facility] #58, 165,cm, 04/19/22 15:03:00 EST, Height/Length Dosing, 112, kg, 04/19/22 15:03:00 EST, Weight Dosing Start Date: 04/23/22 Status: Ordered omeprazole 40 mg oral delayed release capsule 40 mg = 1 cap, Oral, Daily, pt. needs appt. before next refill, # 90 cap, 0 Refill(s), Pharmacy: [facility] #58, 165, cm, 04/19/22 15:03:00 EST, Height/Length Dosing, 112, kg, 04/19/22 15:03:00EST, Weight Dosing Start Date: 07/23/22 Status: Ordered piroxicam 10 mg oral capsule 10 mg = 1 cap, Oral, BID, # 180 cap, 0 Refill(s), Pharmacy: [facility] #58, 165, cm, 04/19/2215:03:00 EST, Height/Length Dosing, 112, kg, 04/19/22 15:03:00 EST, Weight Dosing Start Date: 04/23/22 Status: Ordered sertraline 50 mg oral tablet 50 mg = 1 tab, Oral, Daily, # 90 tab, 0 Refill(s), Pharmacy: [facility] #58, 165, cm, 04/19/22 15:03:00 EST, Height/Length Dosing, 112, kg, 04/19/22 15:03:00 EST, Weight Dosing Start Date: 04/23/22 Status: Ordered Tylenol Extra Strength 500 mg oral tablet 500 mg = 1 tab, Oral, every 4 hr, PRN as needed for pain, # 24 tab, 0 Refill(s), Pharmacy: [facility] #58, 165, cm, 04/19/22 15:03:00 EST, Height/Length [...] (clinical) Confirmed Active ESBL - Extended spectrum cglt-lqtsotxoa-plgreq ing bacteria 2 Confirmed 08/14/20 Active Generalized [...] in 03/2016 4right side, Dr Cardoza at [facility] 5Left ovarian cyst 6Ablation of endometriosis and removal of cervical polyp. Social History Social History Type Response Smoking Status Smoking tobacco use: Former tobacco user;Never; Number of years: 14; 1 entered on: 10/10/21 Sex Female 1quit 2008 Patient Care team information Care Team Personnel Name: Arabella Godinez HOP SEPARATOR Position: PowerChart View Only Member Role: Primary Care Physician Address: Address: [address] [place] [address]- [place] Care Team Related Persons Name: JEAN DAUGHERTYANCELMO Address: Home [address] [facility] [facility], [id number]
--- OUTSIDE RECORDS SUMMARY | 2023-12-18 00:12 | XMS_ITS | Clinical Summary ---
Author Organization [facility] [place] [address] Care Team Providers Care Rate Marker Name Role Phone Arabella Godinez STEEL SHOT HEADER OPERATOR Primary Care Provider [phone] Allergies Active Allergy Reactions Criticality Noted Date Comments Cis Free Text Allergy Medium silk tape. CIS - blister and rash Levofloxacin Hives,Itching Medium 09/10/2013 CIS - Rash Medications Medication Sig Dispensed Refills Start Date End Date Status amitriptyline (ELAVIL) 25 mg tablet 25 MG = 1 Tablet(s), PO, Twice daily 08/01/2009 Active piroxicam (FELDENE) 10 mg capsule 10 MG PO Twice daily 06/15/2010 Active gabapentin (NEURONTIN) 300 mg capsule 300 MG = 1 Capsule(s), PO, Three times daily 08/01/2009 Active clidinium-chlordiazeP OXIDE (LIBRAX, WITH CLIDINIUM,) 5-2.5 mg per capsule 1 Capsule(s), PO, Once daily and PRN 08/01/2009 Active METOPROLOL TARTRATE (LOPRESSOR ORAL) 08/01/2009 Active acetaminophen (TYLENOL) 325 mg tablet 08/01/2009 Active doxycycline (VIBRA-TABS) 100 mg Tablet 07/07/2017 Active nitrofurantoin (MACRODANTIN) 50 mg Capsule TAKE ONE CAPSULE BY MOUTH EVERY DAY 12 11/18/2017 Active pantoprazole (PROTONIX) 40 mg Tablet, Delayed Release (E.C.) Take 40 mg by mouth. Active phenazopyridine (PYRIDIUM) 200 mg Tablet Take 200 mg by mouth. 03/18/2016 Active ranitidine (ZANTAC) 150 mg Tablet TAKE ONE TABLET BY MOUTH TWICE A DAY 4 11/18/2017 Active sertraline (ZOLOFT) 50 mg Tablet TAKE 1 2 TABLET BY MOUTH DAILY FOR 1 WEEK THEN INCREASE TO ONE TABLET DAILY 2 10/08/2017 Active Active Problems Problem Noted Date Diagnosed Date Patellofemoral pain syndrome of left knee 2017 Immunizations Name Administration Dates Next Due Influenza Vaccine, Whole 01/17/2009,03/03/2007 Family History Medical History Relation Comments Cancer Father Diabetes Father Cancer Maternal Aunt Cancer Maternal Grandmother Diabetes Maternal Grandmother Cancer Mother Diabetes Mother Cancer Paternal Grandmother Diabetes Paternal Grandmother Relation Status Comments Father Maternal Aunt Maternal Grandmother Mother Paternal Grandmother Social History Tobacco Use Types Packs/Day Years Used Date Smoking Tobacco: Former Smokeless Tobacco: Never Comments:quit 2006 Alcohol Use Standard Drinks/Week Comments No 0 (1 standard drink = 0.6 oz pur e alcohol) Sex and Gender Information Value Date Recorded Sex Assigned at Not on file Gender Identity Not on file Sexual Orientation Not on file Last Filed Vital Signs Vital Sign Reading Time Taken Comments Blood Pressure 145/92 11/26/2017 10:07 AM EDT Pulse 81 11/26/2017 10:07 AM EDT Temperature - - Respiratory Rate - - Oxygen Saturation - - Inhaled Oxygen Concentration - - Weight 109.3 kg (241 lb) 11/26/2017 10: 07 AM EDT shoes on, clothed Height 165.1 cm (5' 5) 11/26/2017 10:0 7 AM EDT pt reported Body Mass Index 40.1 11/26/2017 10:07 AM EDT Plan of Treatment Health Maintenance Due Date Last Done Comments CT Colonography 1971 Colonoscopy 1971 Colorectal Cancer Screening 1971 FIT DNA 1971 FIT 1971 Sigmoidoscopy (10 year) with FIT yearly 1971 Sigmoidoscopy 1971 HIV screen 07/25/1989 Hepatitis C Screening 07/25/1989 Hepatitis B vaccine (0-59 yrs) (1) 07/25/1990 Tdap adult 07/25/1990 Tetanus vaccine 07/25/1990 HPV test 07/25/2001 PAP Smear 07/25/2001 Breast Cancer Share Decision Needed 2011 Breast Cancer screening 2011 Zoster vaccine (1 of 2) 07/25/2021 Covid-19 Vaccine ( - season) 2022 Influenza (Flu) vaccine (1 o f 1 - Influenza standard series) 12/28/2023 01/17/2009, 03/03/2007 Care Teams Rate Marker Relationship Specialty Start Date End Date Arabella Godinez APRN [address] [place] [address] PCP - General Family Medicine 01/16/23
--- OUTSIDE RECORDS SUMMARY | 2023-12-18 00:12 | XMS_ITS | Continuity of Care Document ---
Author Organization [facility] Address [address] [place] [address] Care Team Providers Care Telecom Analyst Name Role Phone Arabella Godinez Primary Care Physician [phone] [facility] [id number] Date(s): 11/07/23 - 11/07/[address] [address] Discharge Disposition: Home or Self Care Attending Physician: Arabella Godinez MANAGER PRODUCE Admitting Physician: Arabella Godinez MANAGER PRODUCE Referring Physician: Arabella Godinez MANAGER PRODUCE Allergies, Adverse Reactions, Alerts Substance Reaction Severity Status ADHESIVE TAPE Blisters Other Moderate Active levoFLOXacin 1 Skin rash Moderate Active 1tolerates cipro, got rash from IV levaquin Immunizations Given and Recorded Vaccine Date Status [...] wheezing, # 6.7 g, 0 Refill(s), Pharmacy: [facility], 165, cm, 04/19/22 15:03:00 EST, Height/Length Dosing, 112, kg, 04/19/22 15:03:00 EST, Weight Dosing Start Date: 04/19/22 Status: Ordered amitriptyline 25 mg oral tablet 25 mg = 1 tab, Oral, BID, # 180 tab, 0 Refill(s), Pharmacy: [facility], 165, cm, 04/19/2215:03:00 EST, Height/Length Dosing, 112, kg, 04/19/22 15:03:00 EST, Weight Dosing Start Date: 04/23/22 Status: Ordered benzonatate 200 mg oral capsule 200 mg = 1 cap, Oral, TID, PRN as needed for cough, # 30 cap, 0 Refill(s), Pharmacy: [facility], 165, cm, 04/19/22 15:03:00 EST, Height/Length Dosing, 112, kg, 04/19/22 15:03:00 EST, WeightDosing Start Date: 04/19/22 Status: Ordered chlordiazepoxide-clidinium 5 mg-2.5 mg oral capsule See Instructions, PRN other (see comment), 1 cap Oral every 4-6 hours as needed, # 180 cap, 0 Refill(s), Pharmacy: [facility], 165, cm, 04/19/22 15:03:00 EST, Height/Length Dosing, 112, kg,04/19/22 15:03:00 EST, Weight Dosing Start Date: 04/23/22 Status: Ordered gabapentin 600 mg oral tablet 600 mg = 1 tab, Oral, TID, # 270 tab, 0 Refill(s), Pharmacy: [facility], 165, cm, 04/19/22 15:03:00 EST, Height/Length Dosing, 112, kg, 04/19/22 15:03:00 EST, Weight Dosing Start Date: 04/23/22 Status: Ordered ibuprofen 800 mg oral tablet 800 mg = 1 tab, Oral, every 8 hr, # 30 tab, 0 Refill(s), Pharmacy: [facility], 165, cm, 04/19/22 15:03:00 EST, Height/Length Dosing, 112, kg, 04/19/22 15:03:00 EST, Weight Dosing Start Date: 04/19/22 Status: Ordered metoprolol tartrate 50 mg oral tablet 50 mg = 1 tab, Oral, BID, for 90 days, # 180 tab, 0 Refill(s), Pharmacy: [facility], 165,cm, 04/19/22 15:03:00 EST, Height/Length Dosing, 112, kg, 04/19/22 15:03:00 EST, Weight Dosing Start Date: 04/23/22 Status: Ordered omeprazole 40 mg oral delayed release capsule 40 mg = 1 cap, Oral, Daily, pt. needs appt. before next refill, # 90 cap, 0 Refill(s), Pharmacy: [facility], 165, cm, 04/19/22 15:03:00 EST, Height/Length Dosing, 112, kg, 04/19/22 15:03:00EST, Weight Dosing Start Date: 07/23/22 Status: Ordered piroxicam 10 mg oral capsule 10 mg = 1 cap, Oral, BID, # 180 cap, 0 Refill(s), Pharmacy: [facility], 165, cm, 04/19/2215:03:00 EST, Height/Length Dosing, 112, kg, 04/19/22 15:03:00 EST, Weight Dosing Start Date: 04/23/22 Status: Ordered sertraline 50 mg oral tablet 50 mg = 1 tab, Oral, Daily, # 90 tab, 0 Refill(s), Pharmacy: [facility], 165, cm, 04/19/22 15:03:00 EST, Height/Length Dosing, 112, kg, 04/19/22 15:03:00 EST, Weight Dosing Start Date: 04/23/22 Status: Ordered Tylenol Extra Strength 500 mg oral tablet 500 mg = 1 tab, Oral, every 4 hr, PRN as needed for pain, # 24 tab, 0 Refill(s), Pharmacy: [facility], 165, cm, 04/19/22 15:03:00 EST, Height/Length Dosing, 112, kg, 04/19/22 15:03:00 EST, Weight Dosing Start Date: 04/19/22 Status: Ordered Problem List Condition Confirmation Course Effective Dates Status H ealth Status Informant Abdominal pain Confirmed Active Acute complication due to diabetes mellitus 1 Confirmed Active Bacteremia Confirmed 03/04/16 Active Chronic interstitial cystitis Confirmed Active Clostridioides difficile infection Confirmed 05/10/20 Active Cyst of ovary Confirmed Active Depressive disorder Confirmed Active Endometriosis (clinical) Confirmed Active ESBL - Extended spectrum yfln-hfotsevhm-daaqkb ing bacteria 2 Confirmed 08/14/20 Active Fever Confirmed 03/01/16 Active Generalized intra-abdominal and pelvic swelling, mass and lump Confirmed Active Heartburn Confirmed Active Human papilloma virus infection Confirmed Active Hydronephrosis 3 Confirmed 05/22/20 Active Hyperlipidemia Confirmed Active Hypertensive disorder Confirmed Active 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 Confirmed 03/01/16 Active Finger injury Confirmed Active Insomnia Confirmed Active Irritable bowel syndrome Confirmed Active Kidney stone Confirmed Active Lack of energy Confirmed Active Left flank pain Confirmed 03/04/16 Active Liver function tests abnormal Confirmed Active Low back pain Confirmed Active Patellofemoral syndrome of left knee Confirmed 11/26/17 Active Recurrent urinary tract infection Confirmed 08/24/20 Active Sepsis Confirmed 03/04/16 Active 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 2ESBL in urine 3Outside Source Comment: Overview: Added automatically from request for surgery [id number] 4Outside Source Comment: Overview: Added automatically from request for surgery [id number] Procedures Procedure Date Related Diagnosis Body Site Status Cystoscopy 1 05/28/20 Completed Extracorporeal shockwave lit hotripsy for renal calculus 12/26/17 Completed Total hysterectomy 2 07/11/16 Comp leted ESWL of kidney 3 02/26/16 Complete d Drainage of ovarian cyst 4 02/22/09 Completed Laparoscopy with removal of adnexal structures 5 12/01/05 Completed Diagnostic laparoscopy 6 05/13/04 Completed Tubal ligation 1995 Completed 1per [facility] urology 2with right salpingectomy, USVVS: Pelvic pain and uterine prolapse. 3Right, kidney stones crushed and Lithotripsy in left Kidney in 03/2016 4right side, Dr Cardoza at [facility] 5Left ovarian cyst 6Ablation of endometriosis and removal of cervical polyp. Social History Social History Type Response Smoking Status Smoking tobacco use: Former tobacco user;Never; Number of years: 14; 1 entered on: 10/10/21 Sex Female 1quit 2008 Patient Care team information Care Team Personnel Name: Arabella Godinez MANAGER PRODUCE Position: PowerChart View Only Member Role: Primary Care Physician Address: Address: [address] [place] [id number] Care Team Related Persons Name: XIMENA ARROYO Address: [facility] Address: Home [address] [facility], [id number] Address: Mailing [address] [place] [address] [place] [facility] [id number] Name: HIRA DAUGHERTY Address: [place] [address] [place] [address], [id number]
--- OUTSIDE RECORDS SUMMARY | 2023-12-18 00:12 | XMS_ITS | Continuity of Care Document ---
Author Organization [facility] Address [address] [place] [address] Care Team Providers Care Programming Specialist Name Role Phone Victor Hugo Teresa Paul Primary Care Physician Encounter NCTY_OR Date(s): 04/19/22 - 04/19/[address] [id number] Encounter Diagnosis Influenza(Discharge Diagnosis) - 04/19/22 Discharge Disposition: Home or Self Care Attending Physician: Osman Payton MD Admitting Physician: Osman Payton MD Allergies, Adverse Reactions, Alerts Substance Reaction Severity Status ADHESIVE TAPE Blisters Other Moderate Active levoFLOXacin 1 Skin rash Moderate Active 1tolerates cipro, got rash from IV levaquin Functional Status 04/19/22 Family Member Travel History No recent t ravel Recent Travel History No recent travel Other exposure to Infectious Disease Non e Immunizations Given and Recorded Vaccine Date Status [...] wheezing, # 6.7 g, 0 Refill(s), Pharmacy: [facility], 165, cm, 04/19/22 15:03:00 EST, Height/Length Dosing, 112, kg, 04/19/22 15:03:00 EST, Weight Dosing Start Date: 04/19/22 Status: Ordered amitriptyline 25 mg oral tablet 1 tab, Oral, BID, 0 Refill(s) Start Date: 10/15/21 Status: Ordered benzonatate 200 mg oral capsule 200 mg = 1 cap, Oral, TID, PRN as needed for cough, # 30 cap, 0 Refill(s), Pharmacy: [facility], 165, cm, 04/19/22 15:03:00 EST, Height/Length Dosing, 112, kg, 04/19/22 15:03:00 EST, WeightDosing Start Date: 04/19/22 Status: Ordered chlordiazepoxide-clidinium 5 mg-2.5 mg oral capsule 1 cap, Oral, PRN other (see comment), every 4 to 6 hours prn, 0 Refill(s) Start Date: 10/15/21 Status: Ordered gabapentin 600 mg oral tablet 1 tab, Oral, TID, 0 Refill(s) Start Date: 10/15/21 Status: Ordered ibuprofen 800 mg oral tablet 800 mg = 1 tab, Oral, every 8 hr, # 30 tab, 0 Refill(s), Pharmacy: [facility], 165, cm, 04/19/22 15:03:00 EST, Height/Length Dosing, 112, kg, 04/19/22 15:03:00 EST, Weight Dosing Start Date: 04/19/22 Status: Ordered metoprolol tartrate 50 mg oral tablet 1 tab, Oral, BID, for 90 days, 0 Refill(s) Start Date: 10/15/21 Status: Ordered omeprazole 40 mg oral delayed release capsule 1 cap, Oral, Daily, 0 Refill(s) Start Date: 10/15/21 Status: Ordered piroxicam 10 mg oral capsule 1 cap, Oral, BID, 0 Refill(s) Start Date: 10/15/21 Status: Ordered sertraline 50 mg oral tablet 1 tab, Oral, Daily, 0 Refill(s) Start Date: 10/15/21 Status: Ordered Tylenol Extra Strength 500 mg oral tablet 500 mg = 1 tab, Oral, every 4 hr, PRN as needed for pain, # 24 tab, 0 Refill(s), Pharmacy: [facility], 165, cm, 04/19/22 15:03:00 EST, Height/Length [...] (clinical) Confirmed Active ESBL - Extended spectrum oxwx-bmquulqyf-owvhem ing bacteria 2 Confirmed 08/14/20 Active Generalized [...] 05/13/04 Completed Tubal ligation 1995 Completed 1per [facility] urology 2with right salpingectomy, [facility]: Pelvic pain and uterine prolapse. 3Right, kidney stones crushed and Lithotripsy in left Kidney in 03/2016 4right side, Dr Cardoza at [facility] 5Left ovarian cyst 6Ablation of endometriosis and removal of cervical polyp. Results Laboratory List Name Date Strep A (Adali) 04/19/22 Most recent to oldest [Reference Range]: 1 Strep A- Adali [Negative] Negative (04/19/22 3:15 PM) Vital Signs Most recent to oldest [Reference Range]: 1 Temperature Temporal Artery [36-38 Deg C ] 36.6 Deg C (04/19/22 2:42 PM) Peripheral Pulse Rate [60-100 bpm] 98 bp m (04/19/22 2:42 PM) Respiratory Rate [12-24 br/min] 16 br/mi n (04/19/22 2:42 PM) Blood Pressure [90-140/60-90 mmHg] 166/9 0mmHg *HI* (04/19/22 2:42 PM) Weight Dosing 112.00 kg (04/19/22 3:03 PM) Weight Estimated 112.00 kg (04/19/22 2:42 PM) Height/Length Dosing 165.000 cm (04/19/22 3:03 PM) Height/Length Estimated 165.000 cm (04/19/22 2:42 PM) Social History Social History Type Response Smoking Status Smoking tobacco use: Former tobacco user;Never; Number of years: 14; 1 entered on: 10/10/21 Sex Female 1quit 2008 Hospital Discharge Instructions Patient Education 04/19/2022 14:54:40 Influenza, Adult Influenza, Adult Influenza, also called the flu, is a viral infection that mainly affects the respiratory tract. This includes the lungs, nose, and throat. The flu spreads easily from person to person (is contagious). It causes common cold symptoms, along with high fever and body aches. What are the causes? This condition is caused by the influenza virus. You can get the virus by: ??? Breathing in droplets that are in the air from an infected person's cough or sneeze. ??? Touching something that has the virus on it (has been contaminated) and then touching your mouth, nose, or eyes. What increases the risk? The following factors may make you more likely to get the flu: ??? Not washing or sanitizing your hands often. ??? Having close contact with many people during cold and flu season. ??? Touching your mouth, eyes, or nose without first washing or sanitizing your hands. ??? Not getting an annual flu shot. You may have a higher risk for the flu, including serious problems, such as a lung infection (pneumonia), if you: ??? Are older than 65. ??? Are . ??? Have a weakened disease-fighting system (immune system). This includes people who have HIV or AIDS, are on chemotherapy, or are taking medicines that reduce (suppress) the immune system. ??? Have a long-term (chronic) illness, such as heart disease, kidney disease, diabetes, or lung disease. ??? Have a liver disorder. ??? Are severely overweight (morbidly obese). ??? Have anemia. ??? Have asthma. What are the signs or symptoms? Symptoms of this condition usually begin suddenly and last 4???14 days. These may include: ??? Fever and chills. ??? Headaches, body aches, or muscle aches. ??? Sore throat. ??? Cough. ??? Runny or stuffy (congested) nose. ??? Chest discomfort. ??? Poor appetite. ??? Weakness or fatigue. ??? Dizziness. ??? Nausea or vomiting. How is this diagnosed? This condition may be diagnosed based on: ??? Your symptoms and medical history. ??? A physical exam. ??? Swabbing your nose or throat and testing the fluid for the influenza virus. How is this treated? If the flu is diagnosed early, you can be treated with antiviral medicine that is given by mouth (orally) or through an IV. This can help reduce how severe the illness is and how long it lasts. Taking care of yourself at home can help relieve symptoms. Your health care provider may recommend: ??? Taking zjuw-chc-bcjgwfa medicines. ??? Drinking plenty of fluids. In many cases, the flu goes away on its own. If you have severe symptoms or complications, you may be treated in a hospital. Follow these instructions at home: Activity ??? Rest as needed and get plenty of sleep. ??? Stay home from work or school as told by your health care provider. Unless you are visiting your health care provider, avoid leaving home until your fever has been gone for 24 hours without taking medicine. Eating and drinking ??? Take an oral rehydration solution (ORS). This is a drink that is sold at pharmacies and retail stores. ??? Drink enough fluid to keep your urine pale yellow. ??? Drink clear fluids in small amounts as you are able. Clear fluids include water, ice chips, fruit juice mixed with water, and low-calorie sports drinks. ??? Eat bland, lyki-wf-yilhlm foods in small amounts as you are able. These foods include bananas, applesauce, rice, lean meats, toast, and crackers. ??? Avoid drinking fluids that contain a lot of sugar or caffeine, such as energy drinks, regular sports drinks, and soda. ??? Avoid alcohol. ??? Avoid spicy or fatty foods. General instructions ??? Take jlsc-nvl-nlcafhl and prescription medicines only as told by your health care provider. ??? Use a cool mist humidifier to add humidity to the air in your home. This can make it easier to breathe. ??? When using a cool mist humidifier, clean it daily. Empty the water and replace it with clean water. ??? Cover your mouth and nose when you cough or sneeze. ??? Wash your hands with soap and water often and for at least 20 seconds, especially after you cough or sneeze. If soap and water are not available, use alcohol-based hand citrix lead. ??? Keep all follow-up visits. This is important. How is this prevented? Get an annual flu shot. This is usually available in late summer, fall, or winter. Ask your health care provider when you should get your flu shot. ??? Avoid contact with people who are sick during cold and flu season. This is generally fall and winter. Contact a health care provider if: ??? You develop new symptoms. ??? You have: ??? Chest pain. ??? Diarrhea. ??? A fever. ??? Your cough gets worse. ??? You produce more mucus. ??? You feel nauseous or you vomit. Get help right away if you: ??? Develop shortness of breath or have difficulty breathing. ??? Have skin or nails that turn a bluish color. ??? Have severe pain or stiffness in your neck. ??? Develop a sudden headache or sudden pain in your face or ear. ??? Cannot eat or drink without vomiting. These symptoms may represent a serious problem that is an emergency. Do not wait to see if the symptoms will go away. Get medical help right away. Call your local emergency services (911 in the [place] Do not drive yourself to the hospital. Summary ??? Influenza, also called the flu, is a viral infection that primarily affects your respiratory tract. ??? Symptoms of the flu usually begin suddenly and last 4???14 days. ??? Getting an annual flu shot is the best way to prevent getting the flu. ??? Stay home from work or school as told by your health care provider. Unless you are visiting your health care provider, avoid leaving home until your fever has been gone for 24 hours without taking medicine. ??? Keep all follow-up visits. This is important. This information is not intended to replace advice given to you by your health care provider. Make sure you discuss any questions you have with your health care provider. Document Revised: 12/01/2020 Document Reviewed: 12/01/2020 Elsevier Patient Education ?? 2021 [employer] Follow Up Care 04/19/2022 14:42:05 With:Teresa Gay NP Address: [address] When:1 month Physician Emergency department Note * Eagle Agudelo MD: PERFORM Event Display: ED Note Physician Authored Date: [id number] TANVI DAUGHERTY :1970 Age:51 years Sex:Female Visit Date:04/19/2022 Primary Care Physician: Teresa Gay NP Basic Information Time Seen: Eagle Agudelo MD / 04/19/2022 15:09 Chief Complaint Sore throat and cough for two days. History Of Present Illness: 51-year-old female??past medical history diabetes, interstitial cystitis, CDF, ovarian cysts, depression, endometriosis, hyperlipidemia hypertension, kidney stones presents with cough??cough cold congestion symptoms??with wheezing??and sore throat over the past??2 days, daughter had similar symptoms a day or 2 ago??and came home from school with him. ??No significant right dyspnea or chest pain or abdominal pain or vomiting. Review of Systems: Constitutional:?No??fevers,?No??chills,?No??sweats, does have fatigue ENT:?No??ear pain,?Positive for??nasal congestion,?Positive for??sore throat Respiratory:?No??shortness of breath,?Positive for??cough Cardiovascular:?No??Chest pain,?No??palpitations,?No??syncope Gastrointestinal:?Nonausea,?No??vomiting,?No??diarrhea Genitourinary:?No??hematuria Robert/Lymph:?No??bruising tendency,?No??swollen lymph glands Endocrine:?No??excessive thirst,??No??excessive hunger Musculoskeletal:??No??back pain,??No??neck pain,??No??joint pain,??No??muscle pain,??No??decreased range of motion Integumentary:?No??rash,?No??pruritus,?No??abrasions Neurologic: Alert & oriented X 4 Psychiatric:?No??anxiety,?No??depression Physical Exam Vitals & Measurements T:??36.6?C ??(Temporal Artery)?? HR:??98??(Peripheral)?? RR:??16?? BP:??166/90?? SpO2:??94%?? HT:??165.000??cm?? WT:??112.00??kg??(Estimated)?? O2 Therapy:??Room air?? General: Alert and oriented, well nourished,?No??acute distress Eye: PERRL, EOMI,?Normal??conjunctiva HENT: Normocephalic,??posterior oropharynx unremarkable Neck: Supple, non-tender,?No??carotid bruits,?No??JVD,?No??lymphadenopathy Lungs: Clear to auscultation and percussion,?Non-labored?? respiration Heart:?Normal?? rate,?Regular??rhythm,?No??murmur,?No??gallop,?No??edema Abdomen: Soft, non-tender, non-distended,?Normal?? bowel sounds,?No??masses Musculoskeletal:?Normal?? range of motion and strength,?No??tenderness,?No??swelling Skin: Skin is warm, dry and pink,?No??rashes,?No??lesions Neurologic: Awake, alert and oriented X4, CN II-XII intact Psychiatric: Cooperative, appropriate mood and affect Medical Decision Makin-year-old female presents with??sore throat,??cough, congestion??for 2 days. ??36.6, 166/90, 98, 16, 94%. ??Patient clinically no acute distress.?? Posterior pharynx unremarkable, however daughter had strep recently last??patient was swabbed, strep was negative.?? Given patient's clinical presentation and the??incredibly high incidence of influenza in the area, patient was presenting with influenza.?? Not an??ideal candidate for Tamiflu at this time. ??Given prescriptions for Tessalon,??Tylenol, ibuprofen, albuterol inhaler as she does have a??prior smoking history but not??currently??and had some minimal wheezing on exam. ??Discharged in stable condition with return precautions the ER and primary follow-up. Procedure No Qualifying Data Assessment/Plan 1.??Influenza??J11.1 Ordered: Tylenol Extra Strength 500 mg oral tablet, 500 mg = 1 tab, Oral, every 4 hr, PRN as needed for pain, # 24 tab, 0 Refill(s), Pharmacy: [facility], 165, cm, 04/19/22 15:03:00 EST, Height/Length Dosing, 112, kg, 04/19/22 15:03:00 EST, Weight Dosing albuterol 90 mcg/inh aerosol inhaler, 1 puffs, Inhale, every 4 hr, PRN as needed for wheezing, # 6.7 g, 0 Refill(s), Pharmacy: [facility], 165, cm, 04/19/22 15:03:00 EST, Height/Length Dosing, 112, kg, 04/19/22 15:03:00 EST, Weight Dosing benzonatate 200 mg oral capsule, 200 mg = 1 cap, Oral, TID, PRN as needed for cough, # 30 cap, 0 Refill(s), Pharmacy: [facility], 165, cm, 04/19/22 15:03:00 EST, Height/Length Dosing, 112, kg, 04/19/22 15:03:00 EST, Weight Dosing ibuprofen 800 mg oral tablet, 800 mg = 1 tab, Oral, every 8 hr, # 30 tab, 0 Refill(s), Pharmacy: [facility], 165, cm, 04/19/22 15:03:00 EST, Height/Length Dosing, 112, kg, 04/19/22 15:03:00EST, Weight Dosing Discharge Patient, 04/19/22 15:53:00 EST, Home Independently, Constant Indicator ?? Patient Education Influenza, Adult Follow Up With When Contact Information Teresa Gay NP Within 1 [place] [address]- Additional Instructions: Medication Reconciliation New Prescription acetaminophen (Tylenol Extra Strength 500 mg oral tablet)1 tab Oral (given by mouth) every 4 hours as needed as needed for pain. Refills: 0. ?? albuterol (albuterol 90 mcg/inh aerosol inhaler)1 Puffs Inhale (breathe in) every 4 hours as neededas needed for wheezing. Refills: 0. ?? benzonatate (benzonatate 200 mg oral capsule)1 Capsules Oral (given by mouth) 3 times a day as needed as needed for cough. Refills: 0. ?? ibuprofen (ibuprofen 800 mg oral tablet)1 tab Oral (given by mouth) every 8 hours. Refills: 0. ?? Unchanged amitriptyline (amitriptyline 25 mg oral tablet)1 tab Oral (given by mouth) 2 times a day. ?? chlordiazepoxide-clidinium (chlordiazepoxide-clidinium 5 mg-2.5 mg oral capsule)1 Capsules Oral (given by mouth) as needed other (see comment). every 4 to 6 hours prn. ?? gabapentin (gabapentin 600 mg oral tablet)1 tab Oral (given by mouth) 3 times a day. ?? metoprolol (metoprolol tartrate 50 mg oral tablet)1 tab Oral (given by mouth) 2 times a day. for 90days. ?? omeprazole (omeprazole 40 mg oral delayed release capsule)1 Capsules Oral (given by mouth) every day. ?? piroxicam (piroxicam 10 mg oral capsule)1 Capsules Oral (given by mouth) 2 times a day. ?? sertraline (sertraline 50 mg oral tablet)1 tab Oral (given by mouth) every day. Problem List/Past Medical History Ongoing Abdominal pain Acute complication due to diabetes mellitus Chronic interstitial cystitis Clostridioides difficile infection Cyst of ovary Depressive disorder Endometriosis (clinical) ESBL - Extended spectrum ejub-lijakxjut-lzoallkyt bacteria Finger injury Generalized intra-abdominal and pelvic swelling, mass and lump Heartburn Human papilloma virus infection Hyperlipidemia Hypertensive disorder Insomnia Irritable bowel syndrome Kidney stone Lack of energy Liver function tests abnormal Low back pain Morbid obesity Recurrent urinary tract infection Historical No qualifying data Procedure/Surgical History ???Cystoscopy (05/29/2020)???Extracorporeal shockwave lithotripsy for renal calculus (12/27/2017)???Total hysterectomy (07/12/2016)???ESWL of kidney (02/27/2016)???Drainage of ovarian cyst (02/23/2009)???Laparoscopy with removal of adnexal structures (12/02/2005)???Diagnostic laparoscopy (05/14/2004)???Tubal ligation (1995) Allergies ADHESIVE TAPE??(Blisters, Other) levoFLOXacin??(Skin rash) Social History Electronic Cigarette/Vaping Electronic Cigarette Use: Never. Tobacco Former tobacco user Tobacco Use:. 15 year(s). Never Smokeless Tobacco use:.- Comments: quit 2008 Family History Allergy: Mother and Father. Arthritis: Father. Asthma: Mother. Diabetes mellitus: Mother. Family history of cancer: Mother. Gastric ulcer: Mother. Hypertensive disorder: Mother and Father. Migraine: Mother. Obesity: Mother and Father. Tendency to bleed - finding: Father. Lab Results Infectious Disease?? LATEST RESULTS?? Strep A- Adali?? 04/19/22 15:15?? Negative? Electronically Signed on 04/19/22 03:55 PM Eagle Agudelo MD Emergency department Discharge instructions * Eagle Agudelo MD: PERFORM Event Display: ED Discharge Information Authored Date: [id number] TANVI DAUGHERTY :1970 Age:51 years Sex:Female Visit Date:04/19/2022 Primary Care Physician: Teresa Gay LEAD MILIT[employer] ANALYST Discharge Instructions We would like to thank you for allowing us to assist you with your healthcare needs. The following includes patient education materials and information regarding your injury/illness. Diagnosis from Today's Visit Influenza Discharge Vitals Temperature??(Temporal Artery) 97.9 ??F (36.6 ??C) Heart Rate??(Peripheral) 98 Respiratory Rate?? 16 Blood Pressure?? 166/90?? Height?? 64.96 in (165.000 cm) Weight??(Estimated) 246.96 lb (112.00 kg) Allergies ADHESIVE TAPE??(Blisters, Other) levoFLOXacin??(Skin rash) What to Do Next You Need to Schedule the Following Appointments Follow Up with??Teresa Gay NP When:??Within 1 month Where: [address] You were treated today on an emergency basis; it may be manzano to contact your primary care provider to notify them of your visit today. You may have been referred to your regular doctor or a specialist, please follow up as instructed. If your condition worsens or you can't get in to see the doctor, contact the Emergency Department. Medications What How Much When Why Instructions Next Dose New acetaminophen (Tylenol Extra Strength 500 mg oraltablet) 1 tab Oral (given by mouth) Every 4 hours as needed for as needed for pain Influenza Pickup at [facility] New albuterol (albuterol 90 mcg/ inh aerosol inhaler) 1 Puffs Inhale (breathe in) Every 4 hours as needed for as needed for wheezing Influenza Pickup at [facility] New benzonatate (benzonatate 200 mg oral capsule) 1 Capsules Oral (given by mouth) 3 times a day as needed for as needed for cough Influenza Pickup at [facility] New ibuprofen (ibuprofen 800 mg oral tablet) 1 tab Oral (given by mouth) Every 8 hours Influenza Pickup at [facility] Unchanged amitriptyline (amitriptyline 25 mg oral tablet) 1 tab Oral (given by mouth) 2 times a day Unchanged chlordiazepoxide-clidinium (chlordiazepoxide-clidinium 5 mg-2.5 mg oral capsule) 1 Capsules Oral (given by mouth) As needed for other (see comment) every 4 to 6 hours prn ?? Unchanged gabapentin (gabapentin 600 mg oral tablet) 1 tab Oral (given by mouth) 3 times a day Unchanged metoprolol (metoprolol tartrate 50 mg oral tablet) 1 tab Oral (given by mouth) 2 times a day for 90 days ?? Unchanged omeprazole (omeprazole 40 mg oral delayed release capsule) 1 Capsules Oral (given by mouth) Every day Unchanged piroxicam (piroxicam 10 mg oral capsule) 1 Capsules Oral (given by mouth) 2 times a day Unchanged sertraline (sertraline 50 mg oral tablet) 1 tab Oral (given by mouth) Every day Pharmacy Information [facility]: [address], [place] [id number] [phone] Education Materials Influenza, Adult Influenza, also called the flu, is a viral infection that mainly affects the respiratory tract. This includes the lungs, nose, and throat. The flu spreads easily from person to person (is contagious). It causes common cold symptoms, along with high fever and body aches. What are the causes? This condition is caused by the influenza virus. You can get the virus by: ? Breathing in droplets that are in the air from an infected person's cough or sneeze. ? Touching something that has the virus on it (has been contaminated) and then touching your mouth, nose, or eyes. What increases the risk? The following factors may make you more likely to get the flu: ? Not washing or sanitizing your hands often. ? Having close contact with many people during cold and flu season. ? Touching your mouth, eyes, or nose without first washing or sanitizing your hands. ? Not getting an annual flu shot. You may have a higher risk for the flu, including serious problems, such as a lung infection (pneumonia), if you: ? Are older than 65. ? Are . ? Have a weakened disease-fighting system (immune system). This includes people who have HIV or AIDS,are on chemotherapy, or are taking medicines that reduce (suppress) the immune system. ? Have a long-term (chronic) illness, such as heart disease, kidney disease, diabetes, or lung disease. ? Have a liver disorder. ? Are severely overweight (morbidly obese). ? Have anemia. ? Have asthma. What are the signs or symptoms? Symptoms of this condition usually begin suddenly and last 4???14 days. These may include: ? Fever and chills. ? Headaches, body aches, or muscle aches. ? Sore throat. ? Cough. ? Runny or stuffy (congested) nose. ? Chest discomfort. ? Poor appetite. ? Weakness or fatigue. ? Dizziness. ? Nausea or vomiting. How is this diagnosed? This condition may be diagnosed based on: ? Your symptoms and medical history. ? A physical exam. ? Swabbing your nose or throat and testing the fluid for the influenza virus. How is this treated? If the flu is diagnosed early, you can be treated with antiviral medicine that is given by mouth (orally) or through an IV. This can help reduce how severe the illness is and how long it lasts. Taking care of yourself at home can help relieve symptoms. Your health care provider may recommend: ? Taking pqbw-enu-kqrllah medicines. ? Drinking plenty of fluids. In many cases, the flu goes away on its own. If you have severe symptoms or complications, you may be treated in a hospital. Follow these instructions at home: Activity ? Rest as needed and get plenty of sleep. ? Stay home from work or school as told by your health care provider. Unless you are visiting your health care provider, avoid leaving home until your fever has been gone for 24 hours without taking medicine. Eating and drinking ? Take an oral rehydration solution (ORS). This is a drink that is sold at pharmacies and retail stores. ? Drink enough fluid to keep your urine pale yellow. ? Drink clear fluids in small amounts as you are able. Clear fluids include water, ice chips, fruit juice mixed with water, and low-calorie sports drinks. ? Eat bland, kvxl-iy-zqgeyy foods in small amounts as you are able. These foods include bananas, applesauce, rice, lean meats, toast, and crackers. ? Avoid drinking fluids that contain a lot of sugar or caffeine, such as energy drinks, regular sports drinks, and soda. ? Avoid alcohol. ? Avoid spicy or fatty foods. General instructions ? Take akdd-ahz-gzduqqd and prescription medicines only as told by your health care provider. ? Use a cool mist humidifier to add humidity to the air in your home. This can make it easier to breathe. ? When using a cool mist humidifier, clean it daily. Empty the water and replace it with clean water. ? Cover your mouth and nose when you cough or sneeze. ? Wash your hands with soap and water often and for at least 20 seconds, especially after you cough or sneeze. If soap and water are not available, use alcohol-based hand citrix lead. ? Keep all follow-up visits. This is important. How is this prevented? Get an annual flu shot. This is usually available in late summer, fall, or winter. Ask your health care provider when you should get your flu shot. ? Avoid contact with people who are sick during cold and flu season. This is generally fall and winter. Contact a health care provider if: ? You develop new symptoms. ? You have: ? Chest pain. ? Diarrhea. ? A fever. ? Your cough gets worse. ? You produce more mucus. ? You feel nauseous or you vomit. Get help right away if you: ? Develop shortness of breath or have difficulty breathing. ? Have skin or nails that turn a bluish color. ? Have severe pain or stiffness in your neck. ? Develop a sudden headache or sudden pain in your face or ear. ? Cannot eat or drink without vomiting. These symptoms may represent a serious problem that is an emergency. Do not wait to see if the symptoms will go away. Get medical help right away. Call your local emergency services (911 in the [place] Do not drive yourself to the hospital. Summary ? Influenza, also called the flu, is a viral infection that primarily affects your respiratory tract. ? Symptoms of the flu usually begin suddenly and last 4???14 days. ? Getting an annual flu shot is the best way to prevent getting the flu. ? Stay home from work or school as told by your health care provider. Unless you are visiting your health care provider, avoid leaving home until your fever has been gone for 24 hours without taking medicine. ? Keep all follow-up visits. This is important. This information is not intended to replace advice given to you by your health care provider. Make sure you discuss any questions you have with your health care provider. Document Revised: 12/01/2020 Document Reviewed: 12/01/2020 [employer] Patient Education ?? 2021 [employer] Tests Performed Lab Test Name Test Result Date/Time Strep A- Adali Negative 04/19/2022 15:15 EST Patient/Nursing Attendant Signature Patient Name:TANVI DAUGHERTY I have received this information and my questions have been answered. Patient/Nursing Attendant Name: Patient/Nursing Attendant Signature: Relationship to Patient: Witness Name/Signature: Date: Electronically Signed on: 04/19/2022 15:54 ESTSigned by:[facility] Emergency department Note * Liz Rodriguez M: PERFORM Event Display: ED Notes Authored Date: [id number] Patient Care team information Personnel Name: Teresa Gay NP Address: Address: [facility] Joyner Zulema [address] [place] [id number]
--- OUTSIDE RECORDS SUMMARY | 2023-12-18 00:12 | XMS_ITS | Encounter Summary ---
[place] [address] Care Team Providers Care Outdoor Illuminating Engineer Name Role Phone Arabella Godinez APRN Primary Care Provider [phone] Reason for Referral * Consultation (Routine) - Closed Specialty Diagnoses / Procedures Referred By Claudio quinteros Referred To Contact Gastroenterology Diagnoses Irritable bowel syndrome, unspecified type IBS Arabella Godinez APRN [address] [place] [id number] [facility] [address] [place] [phone] Referral ID Status Reason Start Date Expiration Date V isits Requested Visits Authorized [id number] Closed Consult, Test & Treat PCP Updated and/or Approved 01/16/2023 01/16/2024 6 6 Encounter Details Date Type Department Care Team (Late st Contact Info) Description 01/16/2023 Transcribe Orders eDH Incoming Referrals [phone] Arabella Godinez APRN [address] [place] [id number] Irritable bowel syndrome, unspecified type Social History Tobacco Use Types Packs/Day Years Used Date Smoking Tobacco: Former Smokeless Tobacco: Never Comments:quit 2006 Alcohol Use Standard Drinks/Week Comments No 0 (1 standard drink = 0.6 oz pur e alcohol) Sex and Gender Information Value Date Recorded Sex Assigned at Not on file Gender Identity Not on file Sexual Orientation Not on file documented as of this encounter Plan of Treatment Scheduled Referrals Name Type Priority Associated Diagnoses Order Schedule Referral to Gastroenterology Outpatient Referral Routine Irritable bowel syndrome, unspecified type Ordered: 01/16/2023 documented as of this encounter Visit Diagnoses Diagnosis Irritable bowel syndrome, unspecified type documented in this encounter Care Teams Outdoor Illuminating Engineer Relationship Specialty Start Date End Date Arabella Godinez APRN [address] [place] [id number] PCP - General Family Medicine 01/16/23 documented as of this encounter
--- OUTSIDE RECORDS SUMMARY | 2023-12-18 00:13 | XMS_ITS | Encounter Summary ---
Author Organization [facility] Address [address] [place] [address] Care Team Providers Care Felt Pad Cutter Name Role Phone Sera GayP Primary Care Provider + Arabella Godinez BICYCLE DESIGNER Primary Care Provider [phone] Reason for Visit * Reason Onset Date Comments Appointment Related 10/13/2020 Encounter Details Date Type Department Care Team (Late st Contact Info) Description 10/13/2020 Telephone [facility] Urology - [facility] [address] [place] [address] Hao Rodríguez MD [address] [facility], [address] [place] [address] Appointment Related Social History Tobacco Use Types Packs/Day Years Used Date Smoking Tobacco: Former Cigarettes 1 5 0 09/11/2003 - 09/10/2008 Smokeless Tobacco: Never Alcohol Use Standard Drinks/Week Comments No 0 (1 standard drink = 0.6 oz pur e alcohol) PHQ-2 Answer Date Recorded PHQ-2 SUBTOTAL 2 05/22/2020 Interpersonal Safety Answer Date Record ed Physically Hurt Never 11/28/2019 Verbally Threaten Not on file 11/28/2019 Sex and Gender Information Value Date Recorded Sex Assigned at Female 12/09/2019 16:14 EDT Gender Identity Female 12/01/2019 12:11 EDT Sexual Orientation Straight 12/09/2019 16 :14 EDT COVID-19 Exposure Response Date Recorded In the last month, have you been in contact with someone who was confirmed or suspected to have Coronavirus / COVID-19? No / Unsure 10/16/2020 15:06 EDT documented as of this encounter Functional Status Functional Status Response Date of Assess ment Are you deaf or do you have serious difficulty h earing? No 05/22/2020 Are you blind or do you have serious difficulty seeing, even when wearing glasses? No 05/22/2020 Do you have serious difficul ty walking or climbing stairs? (5 years old or older) No 05/22/2020 Do you have difficulty dress ing or bathing? (5 years old or older) No 05/22/2020 Because of a physical, menta l, or emotional condition, do you have difficulty doing errands alone such as visiting a doctor's office or shopping? (15 years old or older) No 05/22/2020 Cognitive Status Response Date of Assessm ent Because of a physical, menta l, or emotional condition, do you have serious difficulty concentrating, remembering, or making decisions? (5 years old or older) No 05/22/2020 documented as of this encounter Miscellaneous Notes * Telephone Encounter - Tien Ward - 10/16/2020 1338 EDT Spoke w/ pt. I am going to schedule with radiology and call the pt back. * Telephone Encounter - Tien Ward - 10/13/2020 1319 EDT Left message for patient. 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
--- OUTSIDE RECORDS SUMMARY | 2023-12-18 00:13 | XMS_ITS | Encounter Summary ---
Author Organization [facility] Address [address] [place] [address] Care Team Providers Care Trailer Park Manager Name Role Phone Arabella Godinez METER REPAIRER HELPER Primary Care Provider [phone] Reason for Visit * Reason Onset Date Comments Appointment Related 12/30/2022 Called to arnold fitzpatrick Encounter Details Date Type Department Care Team (Late st Contact Info) Description 12/30/2022 Telephone [facility] General Surgery - [address] [phone] Silvio Manrique MD [address] [facility], [address] [place] [address] Appointment Related (Called to cancel) Social History Tobacco Use Types Packs/Day Years [...] Sexual Orientation Straight 12/09/2019 16 :14 EDT documented as of this encounter Functional Status Functional Status Response Date of Assess ment Are you deaf or do you have serious difficulty h earing? No 11/26/2022 Are you blind or do you have serious difficulty seeing, even when wearing glasses? No 11/26/2022 Do you have serious difficul ty walking or climbing stairs? (5 years old or older) No 11/26/2022 Do you have difficulty dress ing or bathing? (5 years old or older) No 11/26/2022 Because of a physical, menta l, or emotional condition, do you have difficulty doing errands alone such as visiting a doctor's office or shopping? (15 years old or older) No 11/26/2022 Cognitive Status Response Date of Assessm ent Because of a physical, menta l, or emotional condition, do you have serious difficulty concentrating, remembering, or making decisions? (5 years old or older) No 11/26/2022 documented as of this encounter Miscellaneous Notes * Telephone Encounter - Lesa Merritt - 12/30/2022 1424 EDT Pt cancelled appt for 12/31 @ 10:00. Due to transportation. Please call pt to reschedule. 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
--- OUTSIDE RECORDS SUMMARY | 2023-12-18 00:13 | XMS_ITS | Encounter Summary ---
Author Organization [facility] Address [address] [place] [address] Care Team Providers Care Director Cloud Transformation Name Role Phone Victor Hugo Sera Tommy STEINER Primary Care Provider + Reason for Visit * Reason Onset Date Comments Appointment Related 12/29/2020 Encounter Details Date Type Department Care Team (Late st Contact Info) Description 12/29/2020 Telephone [facility] Urology - [address] [address] Hao Rodríguez MD [address] [place] [address], [address] [place] [id number] Appointment Related Social History Tobacco Use Types [...] encounter Miscellaneous Notes * Telephone Encounter - Christina Troncoso - 12/29/2020 1037 EDT LM to pt with scheduled appt date/time documented in this encounter Plan of Treatment Not on file documented as of this encounter Visit Diagnoses Not on filedocumented in this encounter Additional Health Concerns Infection Onset Date Last Indicated Resolved Time MDR-GNR Comment:IP Note: 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
--- OUTSIDE RECORDS SUMMARY | 2023-12-18 00:13 | XMS_ITS | Encounter Summary ---
Author Organization [facility] [place] [address] Care Team Providers Care Contract Modeler Name Role Phone Arabella Godinez RAIMUNDO Primary Care Provider [phone] Encounter Details Date Type Department Care Team (Late st Contact Info) Description 04/09/2006 [place] [id number] Romana Otero [employer] [facility] [place] [address] Social History Tobacco Use Types Packs/Day Years Used Date Smoking Tobacco: Never Assessed Sex and Gender Information Value Date Recorded Sex Assigned at Not on file Gender Identity Not on file Sexual Orientation Not on file documented as of this encounter Plan of Treatment Not on file documented as of this encounter Procedures Procedure Name Priority Date/Time Associated Diagnosis Comments NON-MIXING SUPERVISOR FINAL REPORT Routine 04/09/2006 4:35 PM EST documented in this encounter Results * Non-Development Consultant Final Report (04/09/2006 4:35 PM EST) Non-Development Consultant Final Report [id number] ? Location: The signing pathologist has (i) examined the relevant preparation(s) for the specimen(s) and (ii) rendered or confirmed the diagnosis(es). . ? Pathology Non-Development Consultant Cytology Final Report Clinical Information Specimen Source: ?Urine, Voided Clinical History/Impress ion: ?Hematuria Gross Description: ?Rec'd in Cytorich blue, ??approx. 40 ml. total volume of ??clear, yellow fluid. ?Total Prep - LBP 1. Interpretation Specimen submitted is satisfactory. Diagnosis Negative for Malignancy 04/13/06 ?Screened by: ? JS ?Rescreened by: ?? NUBIA DELACRUZ 04/13/06 ?Verified by: ? Silvio Martínez MD ? Pathologist ? (Electronic Signature) Comment Transitional cells, squamous cells, crystals, and red blood cells are present. MEGGAN MOLINA 04/09/2006 4:35 PM EST Romana Chan APRN PATHOLOGY/CYTOL OGY ORDERABLES MEGGAN MOLINA documented in this encounter Visit Diagnoses Not on filedocumented in this encounter Care Teams Contract Modeler Relationship Specialty Start Date End Date Arabella Godinez APRN [address] [place] [id number] PCP - General Family Medicine 01/16/23 documented as of this encounter
--- OUTSIDE RECORDS SUMMARY | 2023-12-18 00:13 | XMS_ITS | Referral Summary ---
Author Organization [facility] Address [address] [place] [address] Care Team Providers Care Rod Finisher Name Role Phone Arabella Godinez EGG BUYER Primary Care Provider [phone] Allergies Active Allergy Reactions Criticality Noted Date Comments Adhesive 01/27/2018 Tape allergy. Blister rash Levofloxacin Hives,Itching 09/10/2013 Medications Medication Sig Dispensed Refills Start Date End Date Status amitriptyline (ELAVIL) 25 mg tablet Take 1 Tablet by mouth daily. Active piroxicam (FELDENE) 10 mg capsule Take 10 Capsules by mouth daily. Active gabapentin (NEURONTIN) 400 mg capsule Take 1 Capsule by mouth 3 times daily. Active clidinium-chlordiazep oxide (LIBRAX, WITH CLIDINIUM,) 5-2.5 mg per capsule Take 1 Cap by mouth 3 times daily. Active METOPROLOL SUCCINATE ORAL Take 50 mg by mouth 2 times daily. Active pantoprazole (PROTONIX) 40 mg tablet Take 1 Tablet by mouth daily. Active phenazopyridine (PYRIDIUM) 200 mg tablet Take 1 Tab by mouth 3 times daily as needed for Pain. 10 Tab 04/13/2018 Active Additional Information Patient not taking.Reported on 06/13/2020 docusate sodium (COLACE) 100 mg capsule Take 1 Cap by mouth 2 times daily. 06/14/2020 Active Additional Information Patient not taking.Reported on 11/01/2022 ondansetron (ZOFRAN-ODT) 4 mg disintegrating tablet Take 1 Tab by mouth every 8 hours as needed for Nausea. 3 Tab 06/14/2020 Active Additional Information Patient not taking.Reported on 11/01/2022 naloxone (NARCAN) 4 mg/actuation nasal spray 1 [place] by nasal route as needed for Opioid Reversal. 2 Each 06/14/2020 Active Additional Information Patient not taking.Reported on 11/01/2022 yixksrf-kxkokbiwz-gxj henhydramine (MAGIC MOUTHWASH) Take 15 mL by mouth every 4 hours as needed for Pain. Swish and spit 120 mL 06/14/2020 Active Additional Information Patient not taking.Reported on 11/01/2022 acetaminophen (TYLENOL) 500 mg tablet Take 2 Tablets by mouth every 6 hours. 11/27/2022 Active HYDROmorphone (DILAUDID) 2 mg tablet Take 1 Tablet by mouth every 4 hours as needed for Pain. Daily Max: 12 mg 25 Tablet 11/27/2022 Active methocarbamoL (ROBAXIN) 750 mg tablet Take 1 Tablet by mouth every 6 hours as needed for Muscle Spasms. 20 Tablet 1 11/27/2022 Active ibuprofen (MOTRIN) 200 mg tablet Take 3 Tablets by mouth every 6 hours as needed for Pain. 11/27/2022 Active Active Problems Problem Noted Date Diagnosed Date Epigastric hernia 11/01/2022 Ureteral stricture 05/29/2020 Overview: Added automatically from request for surgery [id number] Hydronephrosis of right kidney 05/22/2020 Overview: Added automatically from request for surgery [id number] Ureteral stricture, right 05/22/2020 Sepsis 03/04/2016 Bacteremia 03/04/2016 UTI (urinary tract infection) 03/04/2016 Left flank pain 03/04/2016 Nephrolithiasis 03/01/2016 Tachycardia 03/01/2016 MDRO (multiple drug resistant organisms) resista nce 03/01/2016 Fever 03/01/2016 Calculus of kidney 02/29/2016 Low back pain 09/10/2013 Resolved Problems Problem Noted Date Diagnosed Date Resolved Date Nausea 03/04/2016 03/06/2016 Chills 03/04/2016 03/06/2016 Immunizations Name Administration Dates Next Due Influenza Vaccine Quad (AFLURIA) PF 0.5 ml IM (3 yrs+) 03/06/2016 Social History Tobacco Use Types Packs/Day Years Used Date Smoking Tobacco: Former Cigarettes 1 5 0 09/11/2003 - 09/10/2008 Smokeless Tobacco: Never Tobacco Cessation:Counseling Given: Not Answered Alcohol Use Standard Drinks/Week Comments No 0 [...] Sexual Orientation Straight 12/09/2019 16 :14 EDT Last Filed Vital Signs Vital Sign Reading Time Taken Comments Blood Pressure 108/67 11/27/2022 0922 EDT Pulse 76 11/27/2022 0922 EDT Temperature 36.6 ??C (97.8 ??F) 11/27/2022 09 EDT Respiratory Rate 18 11/27/2022 0922 EDT Oxygen Saturation 95% 11/27/2022 09 EDT Inhaled Oxygen Concentration - - Weight 109.2 kg (240 lb 11.9 oz) 11/26/2022 1206 EDT Height 165.1 cm (5' 5) 11/26/2022 1206 EDT Body Mass Index 40.06 11/26/2022 1206 EDT Functional Status Functional Status Response Date of [...] (5 years old or older) No 11/26/2022 Plan of Treatment Not on file Medical Devices Implanted Type Area Chaperone Device Identifier Shelf Expiration Date Model / Serial / Lot Mesh Surgical Brittney Synth Polyprp Oval 4.5x5in Ventralight [id number] - [id number] Implanted:Qty: 1 on 11/26/2022 by Silvio Manrique MD at [facility] Mesh N/A: Abdomen [employer] [id number] 10/24/2023 [id number] / N/A / [id number] Stent Ureteral Double Pigtail Tapered Tip [id number] Inlay [place] [id number] - [id number] Implanted:Qty: 1 on 05/22/2020 by Tracey De La Rosa MD at [facility] Stent Right: Ureter [employer] [id number] / [id number] / Stent Ureteral 7fr X 26cm Double Pigtail Tapered Tip Inlay Lubricious Coated - [id number] Implanted:Qty: 1 on 06/13/2020 by Hao Rodríguez MD at [facility] Stent Right: Ureter 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 Default/Not Discussed * Full Code Date Activated Date Inactivated Comments 06/13/2020 6:29 06/14/2020 17:37 Question Answer Comments Reason for decision includes: Full code consistent with overall plan of care Who participated in the discussion? Not Discusse d * Full Code Date Activated Date Inactivated Comments 05/22/2020 16:35 05/25/2020 19:24 Question Answer Comments Reason for decision includes: Full code consistent with overall plan of care Who participated in the discussion? Not Discusse d * Full Code Date Activated Date Inactivated Comments 03/18/2016 11:38 03/18/2016 19:27 Question Answer Comments Reason for decision includes: Full code consistent with overall plan of care Who participated in the discussion? Patient * Full Code Date Activated Date Inactivated Comments 03/02/2016 12:03 03/06/2016 19:16 Question Answer Comments Reason for decision includes: Written do cumentation of patient's wishes (Advance Directive) Who participated in the discussion? Patient Care Teams Rod Finisher Relationship Specialty Start Date End Date Arabella Godinez NP [address] [place] [address] PCP - General Family Medicine - Primary Care 11/01/22
--- OUTSIDE RECORDS SUMMARY | 2023-12-18 00:13 | XMS_ITS | Encounter Summary ---
Author Organization [facility] Address [facility] [place] [address] Care Team Providers Care Ground Operations Supervisor Name Role Phone Teresa Gay APRN Primary Care Provider [phone] Reason for Visit * Reason Comments Left Knee Pain Hx of right knee lat eral release, pain located under patella * Consultation (Routine) - Closed Specialty Diagnoses / Procedures Referred By Claudio quinteros Referred To Contact Orthopaedics Diagnoses Left knee pain Teresa Gay APRN [address] [place] [address] Miguel Chanel MD [facility] [place] [address] Referral ID Status Reason Start Date Expiration Date Visits Re quested Visits Authorized [id number] Closed 10/10/2017 10/10/2018 1 1 Encounter Details Date Type Department Care Team (Latest Contact Info) Description 11/26/2017 10:30 AM EDT Office [place] [address] Miguel Chanel MD [facility] [place] [address] Patellofemoral pain syndrome of left knee Social History Tobacco Use Types Packs/Day Years Used Date Smoking Tobacco: Former Smokeless Tobacco: Never Comments:quit 2006 Alcohol Use Standard Drinks/Week Comments No 0 (1 standard drink = 0.6 oz pur e alcohol) Sex and Gender Information Value Date Recorded Sex Assigned at Not on file Gender Identity Not on file Sexual Orientation Not on file documented as of this encounter Last Filed Vital Signs Vital Sign Reading [...] Mass Index 40.1 11/26/2017 10:07 AM EDT documented in this encounter Progress Notes * Miguel Chanel MD - 11/26/2017 10:30 AM EDT Mrs. Ortiz is a 47-year-old female well-known to me from prior surgery on her right knee for patellofemoral pain for which we performed a lateral release approximately 10 years ago. She is doing very well on that side and comes in today complaining of problems with her contralateral left knee which started approximately 2 years ago. She describes the pain again is being anterior knee pain and she has undergone treatment to include bracing and ongoing physical therapy. Unfortunately she has continued to have anterior knee pain which she also describes as being localized to the lateral aspect of the patella. Physical exam of the right knee demonstrates full range of motion with no instability to varus/ valgus stress and no effusion. She does have pain with patellar compression and has a positive patellarinhibition test but has no apprehension. She has no joint line tenderness. Radiographs do show some degenerative disease of her patellofemoral joint with some mild marginal osteophytes. The remainder of the knee joint is normal. 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 Because Ms. Ortiz has started to develop some degenerative changes in this knee I think I would initially start her treatment options beyond the simple measures of exercises and bracing with a intra-articular steroid injection. I am less optimistic that a lateral release will help her although it may be an option in the future. We therefore went ahead today and performed a intra-articular steroid injection. The correct knee was identified for injection. The skin over the lateral aspect of the knee was sterilely prepped with duraprep/chloraprep solution and covered with a sterile fenestrated drape. The skin at the injection site was anesthetized with 5cc of 1% lidocaine. Once the skin had adequate anesthesia the intraarticular space of the knee was injected with mixture of 4cc of 1% lidocaine and 1ccof 40mg kenalog. The injection site was covered with a dry, sterile bandaide. The patient toleratedthe procedure well. We will follow-up with her in approximately 3 months time with sunrise radiographs of both knees tosee what her response to the injection has been. Miguel Chanel MD Event Designer Orthopaedic Surgery Dept. of Orthopaedic Surgery [facility] Addendum/Correction: Physical Exam and Injection performed on LEFT knee (not right as stated) Miguel Chanel MD documented in this encounter Plan of Treatment Not on file documented as of this encounter Visit Diagnoses Diagnosis Patellofemoral pain syndrome of left knee documented in this encounter Administered Medications Inactive Administered Medications - up to 3 most recent administrations Medication Order MAR Action Action Date Dose Rate Site triamcinolone acetonide (KENALOG-40) injection 40 mg 40 mg, Intra-articular, ONCE, 1 dose, On Fri11/26/17 at 1115, Routine Given 11/26/2017 10:57 AM EDT 40 mg documented in this encounter Care Teams Ground Operations Supervisor Relationship Specialty Start Date End Date Teresa Gay APRN [address] [place] [address] PCP - General Family Medicine 01/05/16 09/12/21 documented as of this encounter
--- OUTSIDE RECORDS SUMMARY | 2023-12-18 00:13 | XMS_ITS | Encounter Summary ---
Author Organization [facility] Address [address] [place] [address] Care Team Providers Care Social Science Teacher Name Role Phone Arabella Godinez CORN PICKER Primary Care Provider [phone] Reason for Visit * Reason Onset Date Comments Appointment Related 11/11/2022 Encounter Details Date Type Department Care Team (Late st Contact Info) Description 11/11/2022 Telephone [facility] Urology - [address] [address] Hao Rodríguez MD [address] [place] [address], [address] [place] [address] Appointment Related Social History Tobacco [...] encounter Miscellaneous Notes * Telephone Encounter - Yani Green - 11/11/2022 [id number] EDT Spoke w pt to bump appt from 11/28 to 01/13. documented in this encounter Plan of Treatment [...] documented as of this encounter Care Teams Social Science Teacher Relationship Specialty Start Date End Date Arabella Godinez NP [address] [place] [id number] PCP - General Family Medicine - Primary Care 11/01/22 documented as of this encounter
--- OUTSIDE RECORDS SUMMARY | 2023-12-18 00:13 | XMS_ITS | Encounter Summary ---
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 Name Role Phone Arabella Godinez PROFESSIONAL ADVISOR Primary Care Provider [phone] Reason for Referral * Consult (Routine/Next Available) - Closed Specialty Diagnoses / Procedures Referred By Contac t Referred To Contact General Surgery Diagnoses Epigastric hernia [facility] [address] [place] [address] [facility] Gen Surgery [address] [place] [address] Referral ID Status Reason Start Date Expiration Date V isits Requested Visits Authorized [id number] Closed Specialty Services Required 11/27/2022 1 1 Question Answer Scheduling Comments (optional ? describe specific scheduling needs if applicable): 3-4 weeks Reason for Request: fu lap VHR * Specialty Diagnoses / Procedures Referred By Contac t Referred To Contact [address] [address] Phone: [phone] Referral ID Status Reason Start Date Expiration Date Visits Re quested Visits Authorized Comments Please make an appointment with your physician in 2 week(s). Call your physician immediately if: You have any fevers greater than 100 Drainage from you wound that is not clear or looks infected Persistent bleeding Increasing abdominal pain Problems urinating, or persistent nausea/vomiting * Specialty Diagnoses / Procedures Referred By Contac t Referred To Contact [place] [address] [place] [address] Phone: [phone] Referral ID Status Reason Start Date Expiration Date Visits Re quested Visits Authorized Comments We are currently collecting quality data on patients having surgery. You may receive a phone call, email, and/or letter about your surgery asking you a series of follow up questions to evaluate specifics aspects of your care. Thank you for your participation. Reason for Visit * Auth/Cert (Routine) Specialty Diagnoses / Procedures Referred By Contac t Referred To Contact Diagnoses Epigastric hernia Procedures ID RPR AA HERNIA 1ST < 3 CM [id number]/STRANGULATED Laparoscopic ventral hernia repair Referral ID Status Reason Start Date Expiration Date Visits Re quested Visits Authorized [id number] 1 1 Encounter Details Date Type Department Care Team (Late st Contact Info) Description 11/26/2022 10:51 EDT - 11/27/2022 13:45 EDT Hospital Encounter [facility] General Surgery Unit [address] [place] [address] Silvio Manrique MD [address] [place] [address], [address] [place] [address] Epigastric hernia (Primary Dx) Discharge Disposition: Home or Self Care Social History Tobacco Use Types Packs/Day Years [...] :14 EDT documented as of this encounter Last Filed Vital Signs Vital Sign Reading Time Taken Comments Blood Pressure 108/67 11/27/2022 0922 EDT Pulse 76 11/27/2022 09 EDT Temperature 36.6 ??C (97.8 ??F) 11/27/2022 09 EDT Respiratory Rate 18 11/27/2022921 EDT Oxygen Saturation 95% 11/27/2022921 EDT Inhaled Oxygen Concentration - - Weight 109.2 kg (240 lb 11.9 oz) 11/26/2022 1206 EDT Height 165.1 cm (5' 5) 11/26/2022 1206 EDT Body Mass Index 40.06 11/26/2022 1206 EDT documented in this encounter Functional Status Functional Status Response [...] No 11/26/2022 documented as of this encounter Discharge Summaries * Mari Heath MD - 11/27/2022 0801 EDT Surgery Discharge Summary Primary Care Provider: Arabella Godinez Attending Physician: Silvio Manrique* Admit Date: 11/26/2022 Discharge Date: 11/27/22 Disposition: Home or self care Problems and Procedures Admitting Diagnosis: Epigastric hernia Principal/Final Diagnosis: Epigastric hernia Additional Problems Managed in the Hospital Active Hospital Problems Diagnosis Date Noted ??? *Epigastric hernia 11/01/2022 Resolved Hospital Problems No resolved problems to display. Principal Procedure: Laparoscopic ventral hernia repair, lysis of adhesions Date: 11/27/22 Secondary Procedures: none Hospital Course Blessing was admitted post-operatively for observation and pain management following a laparoscopic repair of epigastric ventral hernia on 11/26/2022. She recovered in PACU and was transferred to the floorhemodynamically stable. She voided appropriately after ashby removal and her pain was controlled with tylenol, robaxin, and PRN dilaudid. On POD#1 she was independently mobile, had good pain control on PO medications and was thus deemed suitable for discharge home with clinic follow up. Allergies and Immunizations Allergies Allergen Reactions ??? Adhesive Tape allergy. Blister rash ??? Levaquin [Levofloxacin] Hives and Itching Immunization History Administered Date(s) Administered ??? Influenza Vaccine Quad (AFLURIA) PF 0.5 ml IM (3 yrs+) 03/06/2016 Transition of Care Plans Condition at Discharge Good Assessment at Discharge Vital signs: Patient Vitals for the past 12 hrs: BP Pulse Heart Rate Resp Temp SpO2 O2 Flow Rate (L/min) O2 Device 11/27/22 0629 -- -- -- -- -- -- 0 l/min None 11/27/22 0626 -- -- -- -- -- -- 0.5 l/min Nasal cannula 11/27/22 0531 106/72 70 -- 16 36.4 ??C (97.6 ??F) 94 % 2 l/min Nasal cannula 11/27/22 0158 -- -- 68 BPM 16 36.4 ??C (97.5 ??F) -- -- -- 11/27/22 0156 115/79 -- -- -- -- 92 % -- -- 11/27/22 0040 -- -- -- -- -- -- 1 l/min Nasal cannula 11/26/22 2153 115/81 -- -- 20 36.6 ??C (97.9 ??F) 93 % 3 l/min Nasal cannula Results Pending at Discharge Test results still pending from this admission None Relevant Studies at Discharge No imaging studies Last Lab Results at Discharge No labs Discharge Follow Up Upcoming Appointments Jan 13, 2023 14:00 Ultrasound with Ultrasound Urology [facility] Urology [facility] (--) [address] [place] [address] [id number] Clear liquids only for 4 hours prior to ultrasound Jan 13, 2023 14:15 Office Visit with Hao Rodríguez MD [facility] Urology - [facility] (--) [address] [facility] [id number] Follow-up appointments and procedures Follow-up Please make an appointment with your physician in 2 week(s). Call your physician immediately if: You have any fevers greater than 100 Drainage from you wound that is not clear or looks infected Persistent bleeding Increasing abdominal pain Problems urinating, or persistent nausea/vomiting Authorizing Provider: Mari Heath MD Quality Discharge Instructions We are currently collecting quality data on patients having surgery. You may receive a phone call, email, and/or letter about your surgery asking you a series of follow up questions to evaluate specifics aspects of your care. Thank you for your participation. Authorizing Provider: Mari Heath MD Amb Consult/Follow Up General Surgery/Colorectal Surgery Scheduling Comments (optional - describe specific scheduling needs if applicable): 3-4 weeks Reason for Request: fu lap VHR Authorizing Provider: Mari Heath MD ANNE VOGT, MD 11/27/2022 8:01 documented in this encounter Medications at Time of Discharge Medication Sig Dispensed Refills Start Date End Date acetaminophen (TYLENOL) 500 mg tablet Take 2 Tablets by mouth every 6 hours. 11/27/2022 amitriptyline (ELAVIL) 25 mg tablet Take 1 Tablet by mouth daily. clidinium-chlordiazepoxide (LIBRAX, WITH CLIDINIUM,) 5-2.5 mg per capsule Take 1 Cap by mouth 3 times daily. docusate sodium (COLACE) 100 mg capsule Take 1 Cap by mouth 2 times daily. 06/14/2020 gabapentin (NEURONTIN) 400 mg capsule Take 1 Capsule by mouth 3 times daily. HYDROmorphone (DILAUDID) 2 mg tablet Take 1 Tablet by mouth every 4 hours as needed for Pain. Daily Max: 12 mg 25 Tablet 11/27/2022 ibuprofen (MOTRIN) 200 mg tablet Take 3 Tablets by mouth every 6 hours as needed for Pain. 11/27/2022 methocarbamoL (ROBAXIN) 750 mg tablet Take 1 Tablet by mouth every 6 hours as needed for Muscle Spasms. 20 Tablet 1 11/27/2022 METOPROLOL SUCCINATE ORAL Take 50 mg by mouth 2 times daily. visoqih-qjxjyembl-xyzzklze dramine (MAGIC MOUTHWASH) Take 15 mL by mouth every 4 hours as needed for Pain. Swish and spit 120 mL 06/14/2020 naloxone (NARCAN) 4 mg/actuation nasal spray 1 [place] by nasal route as needed for Opioid Reversal. 2 Each 06/14/2020 ondansetron (ZOFRAN-ODT) 4 mg disintegrating tablet Take 1 Tab by mouth every 8 hours as needed for Nausea. 3 Tab 06/14/2020 pantoprazole (PROTONIX) 40 mg tablet Take 1 Tablet by mouth daily. phenazopyridine (PYRIDIUM) 200 mg tablet Take 1 Tab by mouth 3 times daily as needed for Pain. 10 Tab 04/13/2018 piroxicam (FELDENE) 10 mg capsule Take 10 Capsules by mouth daily. documented as of this encounter Ordered Prescriptions Prescription Sig Dispensed Refills Start Date End Da te ibuprofen (MOTRIN) 200 mg tablet Take 3 Tablets by mouth every 6 hours as needed for Pain. 11/27/2022 methocarbamoL (ROBAXIN) 750 mg tablet Take 1 Tablet by mouth every 6 hours as needed for Muscle Spasms. 20 Tablet 1 11/27/2022 HYDROmorphone (DILAUDID) 2 mg tablet Take 1 Tablet by mouth every 4 hours as needed for Pain. Daily Max: 12 mg 25 Tablet 11/27/2022 acetaminophen (TYLENOL) 500 mg tablet Take 2 Tablets by mouth every 6 hours. 11/27/2022 documented in this encounter Discharge Disposition Disposition Code Departure Means Destination Comment s Home or Self Skilled Nursing documented in this encounter Progress Notes * Izabel Agarwal RN - 11/27/2022 1155 EDT Blessing Ortiz CASE MANAGEMENT ASSESSMENT 1970 Epigastric hernia Chart review completed and discussed the plan of care with the direct care RN and/or primary care team ([facility]). Primary Insurance: Medicare A/B Secondary Insurance: N/a PCP: Arabella Godinez NP Pharmacy: [facility]; *Preference for [facility] Outpatient Pharmacy for any prescription medications at discharge* Contact: Spouse Piotr ([phone]) Address: [address] [facility] [address] Patient with no housing, transportation, insurance, or resource concerns identified at this time. Supports in place to achieve a safe post-hospital transition. No identified barriers to accessing necessary care and/or follow-up after discharge. 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 UPDATE: Patient presented to [facility] for scheduled laparoscopic ventral hernia repair/ lysis of adhesions 11/27/2022. This CM met with patient/ spouse Piotr at bedside this morning. Patient hoping for discharge orders to home later today. Spouse able to provide transportation. Will provide parking pass. Preference for any prescription medications to be sent to [facility] any [facility] (Pharmacy aware). Methocarbamol requiring PA (submitted). Please reach out with any additional questions/ concerns regarding dispo plan to home. 11/27/22 1155 Discharge Delay Risk Assessment Minor or major discharge risk delay(s) present? No discharge barriers identified Does the patient meet criteria to be escalated? No Initial assessment status Initial assessment complete? Yes IZABEL AGARWAL RN 11/27/2022 11:55 * Mari Heath MD - 11/27/2022 0706 EDT GENERAL SURGERY PROGRESS NOTE PROCEDURE: Laparoscopic ventral hernia repair, lysis of adhesions Date: 11/27/2022 24H EVENTS: to OR for above, 1-2L NC requirement overnight SUBJECTIVE: Pain remains reasonably well controlled. Most sore when she ambulates but she has been able to walk back and forth to the bathroom. No nausea, no difficulty eating/drinking. Denies CP/SOB. States her oxygen is low at night sometimes and she thinks she snores but she has never been worked up for JODI. OBJECTIVE: VS: Blood pressure 106/72, pulse 70, temperature 36.4 ??C (97.6 ??F), temperature source Oral, resp. rate 16, height 165.1 cm (65), weight (!) 109.2 kg (240 lb 11.9 oz), SpO2 94 %. I/O: Current Shift No intake/output data recorded. Medications: Current Facility-Administered Medications Medication Route Frequency ??? acetaminophen (TYLENOL) tablet 1,000 mg oral Q6H ??? HYDROmorphone (DILAUDID) tablet 2-4 mg oral Q3H PRN ??? methocarbamoL (ROBAXIN) tablet 750 mg oral QID PHYSICAL EXAM: General: alert, cooperative, no acute distress Heart: regular rate and rhythm Lungs: unlabored on RA Abdomen: soft, appropriately-tender, non distended, binders x2 in place Incision/Dressing: C/D/I dermabond, moderate yaya-incisional ecchymosis at superior fixation site Extremities: WWP ASSESSMENT/PLAN: 52 y.o. female POD#1 s/p laparoscopic ventral hernia repair, recovering on floor as expected. Did have an O2 requirement last night, on RA this morning while awake/talking, suspect some element of undiagnosed JODI given her snoring history and habitus. Pain Control: hydromorphone PRN and tylenol scheduled Encourage IS use AAT Chemoppx starts tonight if still admitted Diet: DIET REGULAR Possible discharge mid day MARI HEATH MD 11/27/2022 7:06 Blue Team Pager #[phone] * Malini Alegria MD - 11/26/20222051 EDT SURGERY POST-OP CHECK Procedure: Laparoscopic ventral hernia repair, lysis of adhesions Date: 11/26/2022 SUBJECTIVE: Pain well controlled. Has been OOB. No flatus or BM. Has tolerated PO without nausea orvomiting. Voiding appropiately. No other complaints. Denies chest pain and shortness of breath. OBJECTIVE: VS: Blood pressure 119/78, temperature 36.4 ??C (97.5 ??F), temperature source Oral, resp. rate 18,height 165.1 cm (65), weight (!) 109.2 kg (240 lb 11.9 oz), SpO2 95 %. I/O: Current Shift 11/26 1500 - 11/26 0001 In: 1300 [P.O.:400; I.V.:900] Out: - Medications: Current Facility-Administered Medications Medication Route Frequency ??? acetaminophen (TYLENOL) tablet 1,000 mg oral Q6H ??? HYDROmorphone (DILAUDID) tablet 2-4 mg oral Q3H PRN ??? HYDROmorphone (PF) (DILAUDID) 0.5 mg/0.5 mL syringe 0.5 mg intravenous Q4H PRN ??? lactated ringers (LR) infusion intravenous CONTINUOUS ??? methocarbamoL (ROBAXIN) tablet 750 mg oral QID Physical Exam: General: alert, cooperative, no acute distress Heart: regular rate and rhythm Lungs: clear to auscultation bilaterally Abdomen: Soft, appropriately-tender, non distended Incision/Dressing: C/D/I, no drainage Extremities: WWP ASSESSMENT/PLAN: 52 y.o. female POD#0 s/p laparoscopic ventral hernia repair, recovering on floor as expected. Pain Control: hydromorphone and tylenol Encourage IS use OOB for DVT ppx Diet: DIET REGULAR MALINI ALEGRIA MD 11/26/2022 20:52 Emergency Medicine PGY-1 Blue Team Pager #[phone] documented in this encounter H&P Notes * Mike Abraham MD - 11/26/2022 1241 EDT The preoperative history and physical which was performed within 30 days of this procedure has been reviewed and the clinically appropriate elements of the physical examination have been repeated. There are no changes to the documented history and physical or if so such changes are documented below MIKE ABRAHAM MD 11/26/2022 12:41 Source Note - Silvio Manrique MD - 11/01/2022 9:00 EDT Images from the original note were not included. Division of General Surgery Date of Service: 11/01/2022 PROBLEM: Ventral hernia HISTORY OF PRESENT ILLNESS: I am seeing Blessing Jerrell Ortiz in the office today in consultation by Arabella H Chute, PROFESSIONAL ADVISOR for A ventral hernia. This is a 52 y.o. obese female former smoker (quit 2011) with history as listed below, notable for DM2, HTN, HLD, IBS, GERD and right ureteral stricture who presents for evaluation of her ventral hernia. In May 2020 she underwent a robot-assisted laparoscopic right ureteral repair. She has also had multiple preceding laparoscopic surgeries for ovarian cyst removal, hysterectomy and tubal ligation. She isn't sure when she first noticed the bulge, sometime after her robotic urologic surgery.It is painful in terms of pressure. She likens it to a water balloon. She isn't sure if she can push it in. No obstructive symptoms but does complain of feeling that her food sits there and doesn't s nake down like it should after she eats. History reviewed, her metoprolol is for HTN and her inhalers are for an undetermined respiratory condition (wheezing). She notes she tends to get infections after surgery (all related to urosepsis it would seem). She has never had angina or NE but notes it runs in her family. Social History Tobacco Use ??? Smoking status: Former Packs/day: 1.00 Years: 5.00 Total pack years: 5.00 Types: Cigarettes Quit date: 09/10/2008 Years since quittin.1 ??? Smokeless tobacco: Never Substance Use Topics ??? Alcohol use: No Past Medical History: Diagnosis Date ??? Anxiety med controlled ??? Arthritis right hip and back ??? Back pain ??? Bacteremia 03/04/2016 ??? Calculus of kidney 02/29/2016 ??? Chills 03/04/2016 ??? Depression ??? Diabetes mellitus (HCC-CMS) ??? Diabetes mellitus, type 2 (HCC-CMS) ??? Exercise involving walking ??? GERD (gastroesophageal reflux disease) ??? Hypercholesteremia ??? Hypertension med controlled ??? IBS (irritable bowel syndrome) ??? Interstitial cystitis ??? Left flank pain 03/04/2016 ??? Nausea 03/04/2016 ??? Pain ??? Sepsis 03/04/2016 ??? UTI (urinary tract infection) 03/04/2016 Past Surgical History: Procedure Laterality Date ??? HYSTERECTOMY ??? KNEE ARTHROSCOPY ??? OVARIAN CYST REMOVAL ??? PILONIDAL CYST EXCISION ??? TUBAL LIGATION Current Outpatient Medications Medication ??? acetaminophen (TYLENOL) 325 mg tablet ??? amitriptyline (ELAVIL) 25 mg tablet ??? clidinium-chlordiazepoxide (LIBRAX, WITH CLIDINIUM,) 5-2.5 mg per capsule ??? docusate sodium (COLACE) 100 mg capsule ??? gabapentin (NEURONTIN) 400 mg capsule ??? METOPROLOL SUCCINATE ORAL ??? ogvucrl-jlatrlzyi-jehjobyxcfopxmg (MAGIC MOUTHWASH) ??? naloxone (NARCAN) 4 mg/actuation nasal spray ??? ondansetron (ZOFRAN-ODT) 4 mg disintegrating tablet ??? pantoprazole (PROTONIX) 40 mg tablet ??? phenazopyridine (PYRIDIUM) 200 mg tablet ??? piroxicam (FELDENE) 10 mg capsule No current facility-administered medications for this visit. Allergies Allergen Reactions ??? Adhesive Tape allergy. Blister rash ??? Levaquin [Levofloxacin] Hives and Itching REVIEW OF SYSTEMS: A ten point review of systems was performed and all were negative except as listed below. Patient Active Problem List Diagnosis ??? Low back pain ??? Calculus of kidney ??? Nephrolithiasis ??? Tachycardia ??? MDRO (multiple drug resistant organisms) resistance ??? Fever ??? Sepsis ??? Bacteremia ??? UTI (urinary tract infection) ??? Left flank pain ??? Hydronephrosis of right kidney ??? Ureteral stricture, right ??? Ureteral stricture OBJECTIVE: Vitals: 11/01/22 0855 BP: 138/70 Pulse: 72 Weight: (!) 111.1 kg (245 lb) Height: 163.8 cm (64.49) Body mass index is 41.42 kg/m??. She is afebrile. General: No acute distress. HEENT: Normal. Neck: Supple. Skin: Normal. No apparent scar associated with hernia. Lungs: Expiratory wheezes heard bilaterally. Heart: Regular rate and rhythm. Abdomen: Obese, soft, nondistended, moderate sized soft hernia above umbilicus, mild/moderate tenderness with hernia reduction attempt, hernia is partially reducible, no masses, no organomegaly. Vascular: Normal. Musculoskeletal: Normal. Neurologic: Normal. Noncon CT abdomen 5/12/23 ASSESSMENT & PLAN: A 52 y.o. female with a ventral/incisional hernia perhaps related to her May 2020 robotic urologic procedure or prior gynecologic procedures. It may be a de kourtney epigastric hernia given it seemed to be forming on CT scans preceding her urologic surgery and it is not associated with any apparent trocar site. The fascial defect is ~2cm by imaging and the hernia contained only fat at the time of her scan. It is at least partially reducible. We will plan for laparoscopic repair given her BMI and to obtain optimal overlap of the mesh. Consent signed at our visit today with risks discussed including infection, bleeding, bowel injury; expectations around pain and activity set. We will schedule surgery at the first mutually convenient date. She will need a preoperative EKG. Patient seen and examined with Dr. Manrique. MARI HEATH MD 11/01/2022 9:45 Attestation statement: I performed or was present during the ness or critical portions of the visit and participated in the management of the patient. I agree with the findings and plan of care documented in the resident's/fellow's note. Looks like on previous CT scans that this started as an epigastric ventral hernia. It is likely notassociated with the umbilical port site that she had for her laparoscopic urologic procedure. It islarge enough where I think we should repair it laparoscopically given her body habitus and trying to decrease the chance of hernia recurrence. She undoubtedly will get a fluid collection (seroma) after surgery. We will have her wear a binder to decrease the seroma formation and help with absorb faster. A laparoscopic ventral hernia repair was described to Ms. Ortiz. Risks include infection, bleeding, injury to bowel, and hernia recurrence. Surgery will be scheduled at the first mutually convenienttime. Avoid any heavy lifting after the surgery for about 3months. --Silvio Manrique MD CC: Primary Care Provider: Arabella Godinez Referring Provider: Arabella Godinez NP CC: Hao Rodríguez MD documented in this encounter OR Notes * OR Surgeon - Silvio Manrique MD - 11/26/2022 1250 EDT OPERATIVE REPORT SERVICE DATE: 11/26/2022 PREOPERATIVE DIAGNOSIS: Epigastric ventral hernia. POSTOPERATIVE DIAGNOSIS: Epigastric ventral hernia. PROCEDURE: 1. Laparoscopic ventral hernia repair (2 cm fascial defect). 2. Placement of abdominal wall mesh. 3. Transversus abdominis plane block. SURGEON: Silvio Manrique MD, FACS PAPER AND PRINTS RESTORER: Mike Abraham MD ANESTHESIA: General endotracheal and local. ESTIMATED BLOOD LOSS: Minimal. FLUIDS: 1400 mL of crystalloid. URINE OUTPUT: See anesthesia record. DRAINS: None. COMPLICATIONS: None. INDICATIONS: A 52-year-old woman who had a robot-assisted laparoscopic right ureteral repair and after that, she noticed a bulge in her epigastrium. However, it looked like on previous CT scan that she already had an epigastric ventral hernia and it had gotten larger. The contents were fat and theywere significant, but the defect was only about an inch. We offered her laparoscopic repair. FINDINGS: Omentum incarcerated hernia. This was reduced. The defect only measured about 2 cm. We used an 11.[address] mesh to repair the defect. NARRATIVE: The patient was taken to the operating room and placed supine on the operating table, identified as Blessing Ortiz. I was present for the entire case. After induction of general anesthesia, the abdomen was prepped and draped in the usual sterile fashion. A 10 mm incision was made in the left upper quadrant. Veress needle was used to access the peritoneal cavity, which was insufflated to 14 mmHg using carbon dioxide. A 10 mm port was placed in this location, followed by a 5 mm laparoscope used to examine the abdomen. The only adhesions were the omentum stuck up in the hernia. A 5 mm port was placed in the left abdomen and two 5 mm ports were placed in the right abdomen, all under direct vision. With gentle retraction and cutting the attachments around the edge of the fascial defect, the contents were able to be reduced in their entirety. There was no bleeding from the omentum. The bowels were inspected. There was no bowel injury. We marked the spot on the abdominal wall of the fascial defect, which measured about 2 cm. Using almost 5 cm overlap, a Ventralight ST mesh was used. It was an 11.5 cm diameter mesh. Anchoring sutures were placed in 4 places at the periphery of themesh. A single CV-0 Sleepy Eye-Sid was placed in the first position, the rest were #1 Prolene. The mesh was dipped in saline, rolled and passed through the 10 mm port into the abdomen. The mesh was then unrolled. The anchoring sutures were pulled up through the abdominal wall in corresponding stab incisions in the skin that had been made. The sutures were then tied down to the fascia. The mesh was then tacked at its periphery using 2-3 tacks of the ProTacker device in between each suture. The remaining tacks were placed at approximately 1 cm intervals at the periphery of the mesh and this was done with an AbsorbaTack device. The mesh lay nicely against the abdominal wall withoutundue laxity, folding or tension. Omentum was laid over the bowel. The fascia at the 10 mm port site was closed with an 0 Vicryl suture laparoscopically. This area was infiltrated with local anesthesia. We then performed a transversus abdominis plane block on both sides using a total of 25 mL of 0.5% Marcaine in the preperitoneal space. The pneumoperitoneum was released. The ports were removed. The skin at each of the port sites was closed with subcuticular stitch of 4-0 Monocryl. Dermabond wasused to cover each site. Dermabond was used to close the stab incisions. Sponge, needle and instrument counts were correct at the end of the case. The patient was awoken from anesthesia, extubated and taken to recovery room in stable condition. Unless otherwise noted, there were no complications, no blood loss, no cultures obtained, no specimens removed, and no drains retained. Silvio Manrique MD FACS / AW Confirmation: [id number] Dictation ID: [id number] cc: Silvio Manrique MD FACS, [facility] - Surgery, [address] [place] [address] Arabella Godinez NP, [facility], [address] [place] [id number] Hao Rodríguez MD, [facility] - Urology, [address] [place] [address] PAIGE Silva [facility], [address] [place] [address], [place] [address] documented in this encounter Miscellaneous Notes * Plan of Care - Anderson Baeza RN - 11/27/2022 1329 EDT Problem: Daily Care Plan Goals Goal: Care Plan Documentation Flowsheets (Taken 11/27/2022 0308) Goal This Shift: pt will verbalize/demo understanding of plan Nursing Discharge Note D: Patient noted with discharge orders to: home. A: Prescriptions e-scripted. Reviewed discharge instructions and prescriptions with Patient IV d/c'd. Belongings collected and sent home with patient. R: Patient verbalized understanding of discharge instructions and denied further questions. 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 Please maintain contact precautions for duration of admission. Do not cohort. Please call Infection Prevention with questions ([phone]). * Plan of Care - Otilia Pickett RN - 11/27/2022 0406 EDT Data: Pt POD#1 s/p lap ventral hernia repair. Action: Medicated per MAR, hourly rounding, weaned O2 as able. Response: SpO2 low 90s on 1L. Pain adequately controlled. VSS. OTILIA PICKETT RN 11/27/2022 4:06 * Plan of Care - Trish Moore RN - 11/26/2022 1756 EDT Fill in detail for areas of concern [] Occiput [] Nose [] Ear [] Lip [] Scapula [] Spinous process [] Shoulder [] Elbow [] Iliac crest [] Sacrum/coccyx [] Ischial tuberosity [] Trochanter [] Knee [] Malleolus [] Heel [] Toe [] Other: Skin intact, surgical wounds as described, 4 eyes done with ALEXA Bonner * Brief Op Note - Mike Abraham MD - 11/26/2022 1529 EDT Date: 11/26/2022 Location: [facility] OR Name: Blessing Ortiz, : 1970, Diagnosis Pre-Op Diagnosis Codes: * Epigastric hernia [K43.9] Post-op Diagnosis * Epigastric hernia [K43.9] Procedures * Laparoscopic ventral hernia repair, lysis of adhesions Surgeons * Silvio Manrique MD - Primary * Mike Abraham MD - Assisting Procedure Summary Anesthesia: General ASA: II Estimated Blood Loss: Minimal Total IV Fluids: 1500 mL LDAs: Peripheral IV 11/26/22 1232 Anterior;Left Forearm (Active) Peripheral IV 11/26/22 1447 Right Hand (Active) Urethral Catheter 16 fr (Active) Stent Ureteral right 6 Djiboutian (Active) Wound 11/26/22 Incision Abdomen (Active) [REMOVED] Non-Surgical Airway (Removed) [REMOVED] Wound 06/13/20 Incision Lower;Left;Inner Mouth Partial thickness (Removed) [REMOVED] Wound 06/13/20 Incision Lower;Right Abdomen Full thickness (Removed) Implants Type Name Action Serial No. Mesh MESH SURGICAL VIVEK SYNTH POLYPRP OVAL 4.5X5IN VENTRALIGHT [id number] - [id number] Implanted N/A Staff: Employee Benefits Specialist: Stewart Olivera RN; Allyn Joyce RN Relief Employee Benefits Specialist: Ashley Alcantar RN Scrub Person: Noy Marx; Gasper Dupont Patient Division Operations Manager: Kate Hagen Indications: Blessing Ortiz is an 52 y.o. female who is having surgery for * No pre-op diagnosis entered * Findings: omentum containing hernia, supraumbilical fascial defect ~3cm , Ventralight mesh used to repair the defect. Complications: None; patient tolerated the procedure well. Disposition: PACU - hemodynamically stable. Condition: stable Specimens Collected: No specimens collected during this procedure. Attending Attestation: I was present and scrubbed for the entire procedure Plan : Admit for obs Reg diet Pain control Abdominal binder Mike Abraham [facility] General Surgery Resident PGY-5 Pager [phone] documented in this encounter Plan of Treatment Scheduled Referrals Name Type Priority Associated Diagnoses Order Schedule PROVIDER FOLLOW-UP INSTRUCTIONS Outpatient Referral Routine Ordered: 11/27/2022 PROVIDER FOLLOW-UP INSTRUCTIONS Outpatient Referral Routine Ordered: 11/27/2022 AMB CONS/FOLLOW UP GENERAL SURGERY/COLORECTAL SURGERY Outpatient Referral Routine/Next Available Epigastric hernia Expected: 12/28/2022 (Approximate), Expires: 11/28/2023 documented as of this encounter Procedures Procedure Name Priority Date/Time Associated Diagnosis Comments IMPLANT RECORD - SCANNED 11/28/2022 7:14 EDT REPAIR,HERNIA,NONREDUCIBL E,ABDOMINAL WALL,ANTERIOR,WITHOUT HISTORY OF PRIOR REPAIR,LESS THAN 3 CM,WITH MESH INSERTION 11/26/2022 13:15 EDT Epigastric hernia documented in this encounter Results * IMPLANT RECORD - SCANNED (11/28/2022 7:14 EDT) 11/28/2022 7:14 EDT Scan 2 Soda Dispenser PROCEDURE/MINOR ELSA GICAL ORDERABLES documented in this encounter Visit Diagnoses Diagnosis Epigastric hernia- Primary Other ventral hernia without mention of obstruction or gangrene Epigastric hernia Other ventral hernia without mention of obstruction or gangrene documented in this encounter Admitting Diagnoses Diagnosis Epigastric hernia Other ventral hernia without mention of obstruction or gangrene documented in this encounter Administered Medications Inactive Administered Medications - up to 3 most recent administrations Medication Order MAR Action Action Date Dose Rate Site acetaminophen (TYLENOL) tablet 1,000 mg 1,000 mg, oral, PRE-OP ONCE, 1 dose, On Fri11/26/22 at 1245, Routine, Preprocedure Given 11/26/2022 12:57 EDT 1,000 mg acetaminophen (TYLENOL) tablet 1,000 mg 1,000 mg, oral, EVERY 6 HOURS, First dose on Fri11/26/22 at 1900, Until Discontinued, Routine Given 11/27/2022 12:32 EDT 1,000 mg Given 11/27/2022 6:25 EDT 1,000 mg Given 11/27/2022 1:52 EDT 1,000 mg chlorhexidine gluconate 2 % cloth 1 Each 1 Each, topical, PRE-OP MULTIPLE, Starting on Fri11/26/22 at 1223, Until Fri11/26/22 at 1555, Other, Routine, Preprocedure Given 11/26/2022 12:55 EDT 1 Each fentaNYL citrate (PF) injection 25-50 mcg 25-50 mcg, intravenous, EVERY 5 MIN PRN, 2 doses, Starting on Fri11/26/22 at 1536, Until Fri11/26/22 at 1656, Pain, Routine, Recovery (only) Given 11/26/2022 16:56 EDT 50 mcg Given 11/26/2022 16:50 EDT 50 mcg gabapentin (NEURONTIN) capsule 600 mg 600 mg, oral, PRE-OP ONCE, 1 dose, On Fri11/26/22 at 1245, Routine, Preprocedure Given 11/26/2022 12:57 EDT 600 mg HYDROmorphone (DILAUDID) 2 mg tablet 1 dose, Starting on Fri11/26/22 at 1644, Until Fri11/26/22 at 1650 HYDROmorphone (DILAUDID) tablet 2-4 mg 2-4 mg, oral, EVERY 3 HOURS PRN, Starting on Fri11/26/22 at 1641, Until Fri11/27/22 at 1545, Pain, Routine Given 11/27/2022 13:26 EDT 2 mg Given 11/27/2022 6:25 EDT 4 mg Given 11/26/2022 21:29 EDT 4 mg lactated ringers (LR) infusion 25 mL/hr, intravenous, CONTINUOUS, Starting on Fri11/26/22 at 1245, Until Fri11/27/22 at 0557, Routine, Preprocedure Restarted 11/26/2022 14:47 EDT Continued by Anesthesia 11/26/2022 13:25 EDT 25 mL/hr New Bag 11/26/2022 12:33 EDT 25 mL/hr 25 mL/hr methocarbamoL (ROBAXIN) tablet 750 mg 750 mg, oral, 4 TIMES DAILY, First dose on Fri11/26/22 at 2100, Until Discontinued, Routine Given 11/27/2022 12:33 EDT 75 0 mg Given 11/27/2022 8:48 EDT 750 mg Given 11/26/2022 21:29 EDT 750 mg documented in this encounter Discontinued Medications Medication Sig Discontinue Reason Start Date End Da te acetaminophen (TYLENOL) 325 mg tablet Take 3 Tabs by mouth every 6 hours as needed for Pain. Reorder 06/14/2020 11/27/2022 documented as of this encounter Active and Recently Administered Medications Times are shown in EDT. Scheduled Medication Order 11/25/2022 11/26/2022 11/27/2022 acetaminophen (TYLENOL) tablet 1,000 mg (COMPLETED) 1,000 mg, oral, PRE-OP ONCE, 1 dose, On Fri11/26/22 at 1245, Routine, Preprocedure 1257 (Given - Provider: Temi Leblanc RN) acetaminophen (TYLENOL) tablet 1,000 mg 1,000 mg, oral, EVERY 6 HOURS, First dose on Fri11/26/22 at 1900, Until Discontinued, Routine 1950 (Not Given - Provider: Otilia Pickett RN - Reason: Patient/family refused) 0152 (Given - Provider: Otilia Pickett RN)0625 (Given - Provider: Otilia Pickett RN)1232 (Given - Provider: Anderson Baeza RN) gabapentin (NEURONTIN) capsule 600 mg (COMPLETED) 600 mg, oral, PRE-OP ONCE, 1 dose, On Fri11/26/22 at 1245, Routine, Preprocedure 1257 (Given - Provider: Temi Leblanc RN) methocarbamoL (ROBAXIN) tablet 750 mg 750 mg, oral, 4 TIMES DAILY, First dose on Fri11/26/22 at 2100, Until Discontinued, Routine 2128 (Given - Provider: Otilia Pickett RN) 0848 (Given - Provider: Anderson Baeza RN)1233 (Given - Provider: Anderson Baeza RN) Continuous Medication Order 11/25/2022 11/26/2022 11/27/2022 lactated ringers (LR) infusion (CANCELED) 25 mL/hr, intravenous, CONTINUOUS, Starting on Fri11/26/22 at 1245, Until Fri11/27/22 at 0557, Routine, Preprocedure 1233 (New Bag - Provider: Temi Leblanc RN)1325 (Continued by Anesthesia - Provider: Abimbola Tucker MD)1446 (Paused - Provider: Abimbola Tucker MD - Comment: Switch to gravity)1447 (Restarted - Provider: Abimbola Tucker MD)1529 (Anesthesia Volume Adjustment - Provider: Hudson Titus MD)2135 (Completed - Provider: Otilia Pickett RN) PRN Medication Order 11/25/2022 11/26/2022 11/27/2022 BUPivacaine (PF) (MARCAINE) 0.5% injection (CANCELED) PRN, Starting on Fri11/26/22 at 1509, Until Fri11/26/22 at 1547, Routine, Intraprocedure 1509 (Given - Provider: Silvio Manrique MD - Comment: Injected to surgical sites) chlorhexidine gluconate 2 % cloth 1 Each (CANCELED) 1 Each, topical, PRE-OP MULTIPLE, Starting on Fri11/26/22 at 1223, Until Fri11/26/22 at 1555, Other, Routine, Preprocedure 1255 (Given - Provider: Temi Leblanc RN) fentaNYL citrate (PF) injection 25-50 mcg (COMPLETED) 25-50 mcg, intravenous, EVERY 5 MIN PRN, 2 doses, Starting on Fri11/26/22 at 1536, Until Fri11/26/22 at 1656, Pain, Routine, Recovery (only) 1650 (Given - Provider: Sera Sanchez, ALEXA)1656 (Given - Provider: Sera Sanchez, ALEXA) HYDROmorphone (DILAUDID) tablet 2-4 mg 2-4 mg, oral, EVERY 3 HOURS PRN, Starting on Fri11/26/22 at 1641, Until Fri11/27/22 at 1545, Pain, Routine 1650 (Given - Provider: Sera Sanchez, RN)2129 (Given - Provider: Otilia Pickett, RN) 0625 (Given - Provider: Otilia Pickett, RN)1326 (Given - Provider: Anderson Baeza, ALEXA) documented in this encounter Orders Medications Ordered That John ht Not Have Been Administered Count Last Ordered Date First Ordered Date atropine 0.1 mg/mL syringe 0.5 mg 1 023 BUPivacaine (PF) (MARCAINE) 0.5% injection 1 11/26/2022 ceFAZolin (ANCEF) syringe 2 g 1 11/26/2022 diphenhydrAMINE (BENADRYL) i njection 12.5 mg 1 11/26/2022 HYDROmorphone (PF) (DILAUDID ) 0.5 mg/0.5 mL syringe 0.5 mg 1 11/26/2022 lactated ringers (LR) infusion 1 11/26/2022 lidocaine (PF) 10 mg/mL (1 % ) injection 2 mg 1 11/26/2022 naloxone (NARCAN) injection 0.2 mg 1 2022 ondansetron (PF) (ZOFRAN) injection 4 mg 1 11/26/2022 oxyCODONE (ROXICODONE) immed iate release tablet 5-10 mg 1 11/26/2022 Diet Count Last Ordered Date First Orde red Date DISCHARGE DIET 1 11/27/2022 Nursing Count Last Ordered Date First Orde red Date ACTIVITY INSTRUCTIONS 1 11/27/2022 DRIVING INSTRUCTIONS 1 11/27/2022 WOUND CARE INSTRUCTIONS 1 11/27/2022 Discharge Count Last Ordered Date First Orde red Date DISCHARGE PATIENT 1 11/27/2022 Legal Count Last Ordered Date First Orde red Date MISCELLANEOUS DISCHARGE INSTRUCTIONS 05/2022 documented in this encounter Additional Health Concerns Infection Onset Date Last Indicated Resolved Time MDR-GNR Comment:IP Note: 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
--- OUTSIDE RECORDS SUMMARY | 2023-12-18 00:13 | XMS_ITS | Encounter Summary ---
Author Organization 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
--- OUTSIDE RECORDS SUMMARY | 2023-12-18 00:13 | XMS_ITS | Encounter Summary ---
Author Organization [facility] Address [address] [place] [address] Care Team Providers Care Complaint Inspector Name Role Phone Arabella Godinez POWER SHOVEL OPERATOR Primary Care Provider [phone] Reason for Visit * Reason Onset Date Comments Follow-up Diagnostic PSG 11/19/2022 Encounter Details Date Type Department Care Team (Late st Contact Info) Description 11/19/2022 Telephone [facility] General Surgery - [address] [phone] Silvio Manrique MD [address] [facility], [address] [place] [address] Follow-up Diagnostic PSG Social History Tobacco Use Types Packs/Day Years [...] encounter Miscellaneous Notes * Telephone Encounter - Sarah Sharma - 11/19/2022 0826 EDT Check in at 1:00 nothing to eat after mid night.clears up to 11:00 am water apple juice and Gatorade only. Firmware Architect is needed. documented in this encounter Plan of Treatment [...] documented as of this encounter Care Teams Complaint Inspector Relationship Specialty Start Date End Date Arabella Godinez NP [address] [place] [address] PCP - General Family Medicine - Primary Care 11/01/22 documented as of this encounter
--- OUTSIDE RECORDS SUMMARY | 2023-12-18 00:13 | XMS_ITS | Encounter Summary ---
Author Organization [facility] Address [address] [place] [address] Care Team Providers Care Litigation Services Manager Name Role Phone Arabella Godinez HABILITATION SPECIALIST Primary Care Provider Reason for Visit * Auth/Cert (Routine) Specialty Diagnoses / Procedures [facility] Referred To Contact Diagnoses Epigastric hernia Procedures FL RPR AA HERNIA 1ST < 3 CM NCRC8/STRANGULATED Laparoscopic ventral hernia repair Referral ID Status Reason Start Date Expiration Date Visits Re quested Visits Authorized [id number] 1 1 Encounter Details Date Type Department Care Team (Late st Contact Info) Description 11/26/2022 13:25 EDT Anesthesia Event [facility] OR [address] [place], [place] [id number] Hudson Titus MD [address] [place] [address] Abimbola Tucker MD [address] [place] [address] Anesthesia Record Procedure Summary Procedure Name Responsible Anesthesiologist Anesthesia Start Time Anesthesia Stop Time Laparoscopic ventral hernia repair, lysis of adhesions (Abdomen) Hudson Titus MD 11/26/22 1325 11/26/22 1537 Events Date Time Event Comment 11/26/2022 1325 An Start The patient was re-evaluated immediately before moderate or deep sedation use, before anesthesia induction, or before the anesthesia procedure. 1325 An Start Data 1335 An Induction The patient was reevaluated immediately before moderate or deep sedation use and before anesthesia induction. 1339 An Intubation 1527 An Extubation 1531 an stop data 1537 Handoff to RN I completed my handoff to the receiving nurse during which we: 1. Identified the patient 2. Identified the responsible provider 3. Reviewed the pertinent medical history 4. Discussed the surgical course 5. Reviewed intra-op anesthesia management and issues during anesthesia 6. Set expectations for post-procedure period 7. Allowed opportunity for questions and acknowledgement of understanding. 1537 An Stop Meds Name Total dexaMETHasone (DECADRON) injection 4 mg/ mL (for IV doses up to 10mg) 4 mg ePHEDrine pre-filled syringe 35 mg fentanyl citrate (PF) injection 100 mcg glycopyrrolate pre-filled syringe 0.2 mg midazolam (versed) 1 mg/mL 2 mL vial 2 m g lidocaine 2% (PF) injection glass vial 1 00 mg phenylephrine pre-filled syringe 800 mcg propOFol (DIPRIVAN) injection 200 mg rocuronium 10 mg/mL vial 100 mg sugammadex 100 mg/mL 2 mL vial 400 mg phenylephrine pre-made bag 20 mg/250 mL 2,940 mcg ceFAZolin (ANCEF) IVPB (2 g Premade Bag) 2,000 mg lactated ringers (LR) infusion 1,500 mL * Agents Name Insp Sevoflurane Exp Sevoflurane O2 N2O Air * Blood No blood administrations on file. Lines, Drains, and Airways Type Details Placement Removal Stent 05/22/20; 1215; In O R by ; Ureteral right; 6 Palauan; 24 cm; 11/27/22; 1301 05/22/20 1215 by Nancy Smith RN 11/27/22 1301 by Magda Isabel, ALEXA Peripheral IV 11/26/22; 1232; 20; 1.25; Anterior, Left; Forearm; 1; 2% Chlorhexidine with IPA; 11/26/22; 1644; Discharged; No complications, Catheter intact 11/26/22 1232 by Temi Leblanc RN 11/26/22 1644 by Hao Titus, ALEXA Urethral Catheter 11/26/22; 1345; Inse rted by RN; Intraoperative monitoring; 16 fr; 10 ml; Yes; 11/26/22; 1500; Removing documentation only, patient arrived without 11/26/22 1345 by Stewart Olivera RN 11/26/22 1500 by Ana Pickett RN Wound 11/26/22; 1408; Inci renan; Abdomen; Laparoscopic ventral hernia repair, lysis of adhesions; 11/27/22; 1301 11/26/22 1408 by Stewart Olivera RN 11/27/22 1301 by Magda Isabel RN Non-Surgical Airway 11/26/22; 1446 (crea adrián via procedure documentation); 11/26/22; 1527 11/26/22 1446 by Abimbola Tucker MD 11/26/22 1527 by Hudson Titus MD Peripheral IV 11/26/22; 1447; 20; 1.25; Right; Hand; In OR by MD; 3; 70% IPA; 11/26/22; 1643; Discharged; No complications, Catheter intact 11/26/22 1447 by Abimbola Tucker MD 11/26/22 1643 by Hao Titus RN documented in this encounter Social History Tobacco Use Types Packs/Day Years [...] No 05/22/2020 documented as of this encounter OR Notes * Anesthesia Postprocedure Evaluation - Hudson Titus MD - 11/26/2022 1537 EDT Patient: Blessing Ortiz Vital signs were reviewed with the recovery nurse. Complete vitals [facility] Vitals Value Taken Time BP 151/88 11/26/22 1535 Temp 36.4 11/26/22 1537 Resp 15 11/26/22 1537 Pulse From Oximetry 81 BPM 11/26/22 1537 SpO2 94 % 11/26/22 1537 Heart Rate 82 BPM 11/26/22 1536 Vitals shown include unvalidated device data. Last Pain Score - Numeric Pain Level (Scale 1-10): 0 Type of Anesthesia - general Anesthesia Post Evaluation Post-procedure vitals reviewed and are stable. Level of consciousness: responsive/arousable to verbal stimuli Temperature status: normothermia Respiratory status: airway patent and O2 Sat-within patient's normal range Cardiovascular status: stable Hydration status: adequate Nausea/Vomiting: none Pain management: adequate Post-Op Assessment: patient tolerated procedure well with no complications Patient participation: able to participate Disposition: inpatient Anesthesia Complications: No apparent anesthesia complications * Anesthesia Procedure Notes - Abimbola Tucker MD - 11/26/2022 1444 EDTAssociated Order(s): Airway Airway Date/Time: 11/26/2022 13:41 Urgency: elective Airway not difficult General Information and Staff Patient location during procedure: OR Performed: resident/PATTERN MECHANIC/AA Performed by: Abimbola Tucker MD Authorized by: Hudson Titus MD Indications and Patient Condition Indications for airway management: anesthesia Sedation level: GA Preoxygenated: yes Patient position: sniffing MILS Maintained: No Ventilation assessment: 2 - Oral airway inserted Final Airway Details Final airway type: endotracheal airway Successful airway: ETT Cuffed: yes Successful intubation technique: video laryngoscopy Ag Blade: Melissa Blade size: #3 ETT size (mm): 7.0 Cormack-Lehane Classification: grade I - full view of glottis Placement verified by: chest auscultation, capnometry and palpation of cuff Measured from: lips ETT to lips (cm): 22 Number of attempts at approach: 2 Number of other approaches attempted: 1 Other Attempts Unsuccessful attempted endotracheal techniques: direct laryngoscopy Additional Comments No end tidal or fog with DL placement, ETT tube removed and replaced using video Ag * Anesthesia Preprocedure Evaluation - Abimbola Tucker MD - 11/25/2022 1722 EDT Anesthesia Preprocedure Evaluation Patient Medical History, including Anesthesia History reviewed. Chart and Nursing Notes reviewed, including NPO status and Medication History. Additional ROS/History Findings: Blessing Ortiz is a 52 y.o. female presenting for laparoscopic ventral hernia repair with Dr. Montejo. PMHx significant for obesity (BMI 41), DM (controlled with exercise/diet), HTN (metoprolol succinate 50mg BID), GERD (pantoprazole), unspecified respiratory condition (albuterol), low back pain, arthritis, depression. Intermittent heartburn worst after eating tomatoes, none recently. Using albuterol ~2x/week for lingering cough since she had Covid a few years ago. Able to walk up 2 flights stairs without CP or SOB. Anesthesia history: Prior easy mask, grade IIa view with Mac 3. No personal or family history of anesthetic complications. Prior pilonidal cyst excision, knee surgery, hysterectomy, ovarian cyst removal, tubal ligation. Notable allergies: Tape allergy (rash. OK with silk tape), levaquin Social history: Former smokes (5py, quit 2008). No alcohol use. No recreational drug use. Allergies Allergen Reactions ??? Adhesive Tape allergy. Blister rash ??? Levaquin [Levofloxacin] Hives and Itching Review of Systems Constitutional: Negative. Negative for chills and fever. HENT: Negative. Eyes: Negative. Respiratory: Negative. Negative for cough and shortness of breath. Cardiovascular: Negative. Negative for chest pain. Gastrointestinal: Positive for heartburn. Intermittent heartburn, well-controlled currently Musculoskeletal: Negative for neck pain. Neurological: Negative for seizures. Past Medical History: Diagnosis Date ??? Anxiety [...] 03/04/2016 ??? UTI (urinary tract infection) 03/04/2016 Relevant Problems /Renal (+) Calculus of kidney (+) Hydronephrosis of right kidney (+) Nephrolithiasis Physical Exam Airway Mallampati: II TM distance: >3 FB Neck ROM: full Cardiovascular Rhythm: regular Rate: normal (-) murmur Dental - normal exam Pulmonary - normal exam Breath sounds clear to auscultation (-) wheezes Abdominal (+) obese Anesthesia Plan ASA 2 Anesthesia Type - general, to include intravenous induction. Block for post-op pain? No Anesthesia plan and risks discussed. Informed consent obtained from patient and spouse. Specific risks discussed were dental injury, nausea and vomiting. Code status discussed? No The preoperative history and physical which was performed within 30 days of this procedure, has been reviewed and the clinically appropriate elements of the physical examination have been repeated. There are no changes to the documented history and physical or, if so, such changes are documented inthis note PAT Note Notes from 10/26/22 through 11/25/22 No notes of this type exist for this encounter. documented in this encounter Plan of Treatment Not on file documented as of this encounter Procedures Procedure Name Priority Date/Time Associated Diagnosis Comments ANESTHESIA INTUBATION Routine 11/26/2022 13:41 EDT documented in this encounter Results * FL AN ELECTIVE ENDOTRACHEAL AIRWAY (11/26/2022 13:41 EDT) Narrative Abimbola Tucker MD - 11/26/2022 13:41 EDT Abimbola Tucker MD ? 11/26/2022 14:46 Airway Date/Time: 11/26/2022 13:41 Urgency: elective Airway not difficult General Information and Staff Patient location during procedure: OR Performed: resident/PATTERN MECHANIC/AA Performed by: Abimbola Tucker MD Authorized by: Hudson Titus MD ?? Indications and Patient Condition Indications for airway management: anesthesia Sedation level: GA Preoxygenated: yes Patient position: sniffing MILS Maintained: No Ventilation assessment: 2 - Oral airway inserted Final Airway Details Final airway type: endotracheal airway Successful airway: ETT Cuffed: yes Successful intubation technique: video laryngoscopy Ag Blade: Melissa Blade size: #3 ETT size (mm): 7.0 Cormack-Lehane Classification: grade I - full view of glottis Placement verified by: chest auscultation, capnometry and palpation of cuff Measured from: lips ETT to lips (cm): 22 Number of attempts at approach: 2 Number of other approaches attempted: 1 Other Attempts Unsuccessful attempted endotracheal techniques: direct laryngoscopy Additional Comments No end tidal or fog with DL placement, ETT tube removed and replaced using video Ag Hudson Titus MD ANESTHESIA ORDERABL ES documented in this encounter Visit Diagnoses Not on filedocumented in this encounter Administered Medications Inactive Administered Medications - up to 3 most recent administrations Medication Order MAR Action Action Date Dose Rate Site ceFAZolin in dextrose (iso-os) piggyback 2 g/100 mL intravenous, Administer over 30 Minutes, PRN, Starting on Fri11/26/22 at 1342, Until Fri11/26/22 at 1538, Routine, Anesthesia Intraprocedure Given 11/26/2022 13:42 EDT 2,000 mg dexAMETHasone (DECADRON) injection intravenous, PRN, Starting on Fri11/26/22 at 1449, Until Fri11/26/22 at 1537, Routine, Anesthesia Intraprocedure Given 11/26/2022 14:49 EDT 4 mg ePHEDrine injection 25 mg/5 mL syringe intravenous, PRN, Starting on Fri11/26/22 at 1412, Until Fri11/26/22 at 1537, Routine, Anesthesia Intraprocedure Given 11/26/2022 14:40 EDT 5 mg Given 11/26/2022 14:12 EDT 5 mg Given 11/26/2022 14:07 EDT 5 mg fentaNYL citrate (PF) injection intravenous, PRN, Starting on Fri11/26/22 at 1335, Until Fri11/26/22 at 1537, Routine, Anesthesia Intraprocedure Given 11/26/2022 13:35 EDT 100 mcg glycopyrrolate (PF) (ROBINUL) 0.4 mg/2 mL (0.2 mg/mL) injection intravenous, PRN, Starting on Fri11/26/22 at 1408, Until Fri11/26/22 at 1537, Routine, Anesthesia Intraprocedure Given 11/26/2022 14:08 EDT 0.2 mg lactated ringers (LR) infusion 25 mL/hr, intravenous, CONTINUOUS, Starting on Fri11/26/22 at 1245, Until Fri11/27/22 at 0557, Routine, Preprocedure Restarted 11/26/2022 14:47 EDT Continued by Anesthesia 11/26/2022 13:25 EDT 25 mL/hr New Bag 11/26/2022 12:33 EDT 25 mL/hr 25 mL/hr lidocaine (PF) 20 mg/mL (2 %) injection intravenous, PRN, Starting on Fri11/26/22 at 1335, Until Fri11/26/22 at 1537, Routine, Anesthesia Intraprocedure Given 11/26/2022 13:35 EDT 100 mg midazolam (PF) (VERSED) injection intravenous, PRN, Starting on Fri11/26/22 at 1334, Until Fri11/26/22 at 1537, Routine, Anesthesia Intraprocedure Given 11/26/2022 13:34 EDT 2 mg phenylephrine HCl in 0.9% NaCl (NEO_SYNEPHRINE) 20 mg/250 mL (80 mcg/mL) infusion solution intravenous, PRN, Starting on Fri11/26/22 at 1410, Until Fri11/26/22 at 1537, Routine, Anesthesia Intraprocedure Rate Change 11/26/2022 14:50 EDT 30 mcg/min 22.5 mL/hr Restarted 11/26/2022 14:41 EDT 50 mcg/min 37.5 mL/hr New Bag 11/26/2022 13:55 EDT 100 mcg/min 75 mL/hr phenylephrine HCl in 0.9% NaCl injection intravenous, PRN, Starting on Fri11/26/22 at 1406, Until Fri11/26/22 at 1537, Routine, Anesthesia Intraprocedure Given 11/26/2022 14:40 EDT 200 mcg Given 11/26/2022 14:12 EDT 100 mcg Given 11/26/2022 14:06 EDT 200 mcg propOFol (DIPRIVAN) injection intravenous, PRN, Starting on Fri11/26/22 at 1336, Until Fri11/26/22 at 1537, Routine, Anesthesia Intraprocedure Given 11/26/2022 13:36 EDT 200 mg rocuronium (ZEMURON) injection intravenous, PRN, Starting on Fri11/26/22 at 1432, Until Fri11/26/22 at 1537, Routine, Anesthesia Intraprocedure Given 11/26/2022 15:00 EDT 20 mg Given 11/26/2022 14:32 EDT 30 mg Given 11/26/2022 13:38 EDT 50 mg sugammadex (BRIDION) injection intravenous, PRN, Starting on Fri11/26/22 at 1518, Until Fri11/26/22 at 1537, Routine, Anesthesia Intraprocedure Given 11/26/2022 15:18 EDT 400 mg documented in this encounter Additional Health Concerns Infection Onset Date Last Indicated Resolved Time MDR-GNR Comment:IP Note: 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
--- OUTSIDE RECORDS SUMMARY | 2023-12-18 00:13 | XMS_ITS | Encounter Summary ---
Author Organization [facility] Address [address] [place] [address] Care Team Providers Care Waterworks Supervisor Name Role Phone Victor Hugo Sera Tommy STEINER Primary Care Provider + Reason for Visit * Reason Onset Date Comments Hematuria 10/31/2020 Encounter Details Date Type Department Care Team (Late st Contact Info) Description 10/31/2020 Telephone [facility] Urology - [address] [address] Hao Rodríguez MD [address] [place] [address], [address] [place] [id number] Hematuria Social History Tobacco Use Types Packs/Day Years [...] have Coronavirus / COVID-19? No / Unsure 10/23/2020 12:06 EDT documented as of this encounter Functional [...] encounter Miscellaneous Notes * Telephone Encounter - Steffanie Mckeon RN - 11/02/2020 0938 EDT Left a message for the patient to return call. * Telephone Encounter - Steffanie Mckeon RN - 10/31/2020 1011 EDT Left a message for medical records to be faxed. * Telephone Encounter - Purvi Obrien - 10/31/2020 0950 EDT Pt states she was in [facility] October 29 -- she has a great deal of blood in her urine, please call to advise. documented in this encounter Plan of Treatment [...] documented as of this encounter Care Teams Waterworks Supervisor Relationship Specialty Start Date End Date Sera Gay FNP [address] [place] [address] PCP - General 09/02/13 10/31/22 documented as of this encounter
--- OUTSIDE RECORDS SUMMARY | 2023-12-18 00:13 | XMS_ITS | Encounter Summary ---
Author Organization [facility] [place] [address] Care Team Providers Care Civil Engineering Teacher Name Role Phone Arabella Godinez APRN Primary Care Provider [phone] Encounter Details Date Type Department Care Team (Late st Contact Info) Description 10/24/2004 [place] [address] Gale Paul MD [facility] [place] [address] [place] [address] Social History Tobacco Use Types Packs/Day Years Used Date Smoking Tobacco: Never Assessed Sex and Gender Information Value Date Recorded Sex Assigned at Not on file Gender Identity Not on file Sexual Orientation Not on file documented as of this encounter Plan of Treatment Not on file documented as of this encounter Procedures Procedure Name Priority Date/Time Associated Diagnosis Comments NON-MANAGER AGRICULTURAL FINAL REPORT Routine 10/24/2004 5:50 PM EDT documented in this encounter Results * Non-Electrician Wiring Final Report (10/24/2004 5:50 PM EDT) Non-Electrician Wiring Final Report [id number] ? Location: The signing pathologist has (i) examined the relevant preparation(s) for the specimen(s) and (ii) rendered or confirmed the diagnosis(es). . ? Pathology Non-Electrician Wiring Cytology Final Report Clinical Information Specimen Source: ?Urine, Voided Clinical History/Impress ion: ?? Hematuria, R/O TCCA Gross Description: ?? Rec'd ??in Cytorich blue, ??approx. 30 ml. total volume of ??cloudy, yellow fluid. ?Total Prep - LBP 1.; Diff Quik _; Pap Stain _; Cys _; Cell Block _. Interpretation Specimen submitted is satisfactory. Diagnosis Negative for Malignancy 10/29/04 ?Screened by: ? JS ?Rescreened by: ?? MARTIN,JLG 10/29/04 ?Verified by: ? Royal Chester MD ? Pathologist ? (Electronic Signature) Comment Urothelial cells and many squamous cells present. MEGGAN MOLINA 10/24/2004 5:50 PM EDT Gale Paul MD PATHOLOGY/CYTOL OGY ORDERABLES Performing Organization Address City/State/[facility] Co de Phone Number MEGGAN MOLINA documented in this encounter Visit Diagnoses Not on filedocumented in this encounter Care Teams Civil Engineering Teacher Relationship Specialty Start Date End Date Arabella Godinez, RAIMUNDO [address] [place] [id number] PCP - General Family Medicine 01/16/23 documented as of this encounter
--- OUTSIDE RECORDS SUMMARY | 2023-12-18 00:13 | XMS_ITS | Encounter Summary ---
Author Organization [facility] Address [address] [place] [address] Care Team Providers Care Geology Professor Name Role Phone Arabella Godinez DIRECTOR OF MEDICAL REVIEW Primary Care Provider [phone] Reason for Visit * Reason Onset Date Comments Follow-up Diagnostic PSG 11/25/2022 Encounter Details Date Type Department Care Team (Late st Contact Info) Description 11/25/2022 Telephone [facility] General Surgery - [address] [id number] Silvio Manrique MD [address] [facility], [address] [place] [address] Follow-up Diagnostic PSG Social History [...] * Telephone Encounter - Sarah Sharma - 11/25/2022 0938 EDT Check in 1045 level three, nothing to eat after mid night, clears 2 hour prior. Patient asking about meds I informed anesthesia will call documented in this encounter Plan of Treatment [...] documented as of this encounter Care Teams Geology Professor Relationship Specialty Start Date End Date Arabella Godinez NP [address] [place] [address] PCP - General Family Medicine - Primary Care 11/01/22 documented as of this encounter
--- OUTSIDE RECORDS SUMMARY | 2023-12-18 00:13 | XMS_ITS | Encounter Summary ---
Author Organization [facility] Address [address] [place] [address] Care Team Providers Care Natural Gas Trader Name Role Phone Arabella Godinez SHAKE SAWYER Primary Care Provider [phone] Reason for Visit * Auth/Cert (Routine) Specialty Diagnoses / Procedures Referred By Contac t Referred To Contact Diagnoses Epigastric hernia Procedures UT RPR AA HERNIA 1ST < 3 CM NCRC8/STRANGULATED Laparoscopic ventral hernia repair Referral ID Status Reason Start Date Expiration Date Visits Re quested Visits Authorized [id number] 1 1 Encounter Details Date Type Department Care Team (Late st Contact Info) Description 11/26/2022 12:50 EDT - 11/26/2022 15:00 EDT Surgery [facility] OR [address] [place] [address] Silvio Manrique MD 111 [facility], [address] [place] [address] Laparoscopic ventral hernia repair, lysis of adhesions [27951 (CPT??)] Surgery Details Date/Time Status Location OR Service Patient Class Case Class Case Type Trauma Case? 11/26/22 1250 Posted [facility] 14 General Extended Stay H - Elective Panel 1 Procedure LRB Anes Op Region Wound Class Comments Laparoscopic ventral hernia repair, lysis of adhesions N/A General Abdomen Class II/ Clean Contaminated Surgeon Surgeon Role Service Panel Mike Abraham MD Assisting Gastroenterology 1 Silvio Manrique MD Primary General 1 documented in this encounter Social History Tobacco [...] Sign Reading Time Taken Comments Blood Pressure 139/85 11/26/2022 1206 EDT Pulse - - Temperature 35.9 ??C (96.6 ??F) 11/26/2022 1206 EDT Respiratory Rate 19 11/26/2022 1206 EDT Oxygen Saturation 99% 11/26/2022 1206 EDT Inhaled Oxygen Concentration - - Weight [...] 13, 2023 14:00 Ultrasound with Ultrasound Urology [facility] (--) [address] [facility] [id number] Clear liquids only for 4 hours prior to ultrasound Jan 13, 2023 14:15 Office Visit with Hao Rodríguez MD [facility] (--) [address] [facility] [id number] Follow-up appointments and procedures Follow-up Please make [...] if applicable): 3-4 weeks Reason for Request: [facility] Authorizing Provider: Mari Heath MD ANNE VOGT, [...] 50 mg by mouth 2 times daily. olcdfnr-tlvbrenyc-fugsvypc dramine (MAGIC MOUTHWASH) Take 15 mL by mouth every 4 hours as needed for Pain. Swish and spit 120 mL 06/14/2020 naloxone (NARCAN) 4 mg/actuation nasal spray 1 [place] by nasal route as needed for Opioid [...] Means Destination Comment s Home or Self [facility]ci documented in this encounter Progress Notes * Izabel Agarwal RN - 11/27/2022 1155 EDT Blessingamberly Ortiz CASE MANAGEMENT ASSESSMENT 1970 Epigastric hernia Chart review completed and discussed the plan of care with the direct care RN and/or primary care team ([facility]). Primary Insurance: Medicare A/B Secondary Insurance: N/a PCP: Arabella Godinez NP [facility]; *Preference for [facility] Outpatient Pharmacy for any prescription medications at discharge* Contact: Spouse Piotr ([phone]) Address: [address] [place] [address] Patient with no housing, transportation, insurance, or resource concerns identified at this time. Supports in place to achieve a safe post-hospital transition. No identified barriers to accessing necessary care and/or follow-up after discharge. city library director/Materials Planner will continue to follow patient's progress and remain available if situation changes for coordination of care, psychosocial support and/or discharge planning. UPDATE: Patient presented to [facility] for scheduled laparoscopic ventral hernia repair/ lysis of adhesions 11/27/2022. This CM met with patient/ spouse Piotr at bedside this morning. Patient hoping for discharge orders to home later today. Spouse able to provide transportation. Will provide parking pass. Preference for any prescription medications to be sent to [facility] will assist[facility] any copay (Pharmacy aware). [...] HEATH MD 11/27/2022 7:06 Blue Team Pager #[phone] * Malini Alegria MD - 11/26/20222051 EDT [...] I/O: Current Shift 11/26 1500 - 11/26 2258 In: 1300 [P.O.:400; I.V.:900] Out: - Medications: [...] 20:52 Emergency Medicine PGY-1 Blue Team Pager #[phone] documented in this encounter H&P Notes * [...] OF PRESENT ILLNESS: I am seeing Blessing Ortiz in the office today in consultation by Arabella Godinez NP for A ventral hernia. This is a [...] seem). She has never had angina or CT but notes it runs in her family. [...] mg capsule ??? METOPROLOL SUCCINATE ORAL ??? cfaeauz-pejvubamz-ngcehjwujbvzrce (MAGIC MOUTHWASH) ??? naloxone (NARCAN) 4 mg/actuation [...] Musculoskeletal: Normal. Neurologic: Normal. Noncon CT abdomen 09/06/22 ASSESSMENT & PLAN: A 52 y.o. female [...] plane block. SURGEON: Silvio Manrique MD, FACS ASBESTOS TEXTILE SUPERVISOR: Mike Abraham MD ANESTHESIA: General endotracheal and [...] on the operating table, identified as Blessing Angel. I was present for the entire case. [...] the periphery of themesh. A single CV-0 [place]Sid was placed in the first position, the [...] Silvio Manrique MD FACS / AW Confirmation: [id number] Dictation ID: [id number] cc: Silvio Manrique MD FACS, [facility] - Surgery, [address] [place] [address] Arabella Godinez NP, [facility], [address] [place] [address] Hao Rodríguez MD, [facility] - Urology, [address] [place] [address] PAIGE Silva [facility], [address] [place] [address] documented in this encounter Miscellaneous Notes * Plan of Care - Anderson Baeza RN - 11/27/2022 1329 EDT Problem: Daily Care Plan Goals Goal: Care Plan Documentation Flowsheets (Taken 11/27/2022 0727) Goal This Shift: pt will verbalize/demo understanding [...] (MDR-GNR) infection (click on Inf: MDR-GNR in EPIC Storyboard for details). Please maintain contact precautions for duration of admission. Do not cohort. Please call Infection Prevention with questions ([phone]). * Plan of Care - Otilia Pickett RN - 11/27/2022 0406 EDT Data: Pt POD#1 s/p lap ventral hernia repair. Action: Medicated per JUN, hourly rounding, weaned O2 as able. Response: [...] - 11/26/2022 1529 EDT Date: 11/26/2022 Location: [facility] OR Name: Blessing Ortiz, : 1970, Diagnosis [...] 16 fr (Active) Stent Ureteral right 6 Dominican (Active) Wound 11/26/22 Incision Abdomen (Active) [REMOVED] Non-Surgical Airway (Removed) [REMOVED] Wound 06/13/20 Incision Lower;Left;Inner Mouth Partial thickness (Removed) [REMOVED] Wound 06/13/20 Incision Lower;Right Abdomen Full thickness (Removed) Implants Type Name Action Serial No. Mesh MESH SURGICAL VIVEK SYNTH POLYPRP OVAL 4.5X5IN VENTRALIGHT [id number] - [id number] Implanted N/A Staff: Inner Tube Inserter: Stewart Olivera RN; Allyn Joyce RN Relief Inner Tube Inserter: Ashley Alcantar RN Scrub Person: Noy Marx; Gasper Dupont Patient Frame Opener: Kate Hagen Indications: Blessing Ortiz is an [...] diet Pain control Abdominal binder Mike Abraham [facility] General Surgery Resident PGY-5 Pager [phone] documented in this encounter Plan of Treatment [...] 7:14 EDT) 11/28/2022 7:14 EDT Scan 2 Commercial Hvac Technician PROCEDURE/MINOR ELSA GICAL ORDERABLES documented in this [...] mg Given 11/27/2022 1:52 EDT 1,000 mg BUPivacaine (PF) (MARCAINE) 0.5% injection PRN, Starting on Fri11/26/22 at 1509, Until Fri11/26/22 at 1547, Routine, Intraprocedure Given 11/26/2022 15:09 EDT 24 mL chlorhexidine gluconate 2 % cloth 1 Each [...] Patient/family refused) 0152 (Given - Provider: Otilia Pickett, RN)0625 (Given - Provider: Otilia Pickett RN)1232 [...] Recovery (only) 1650 (Given - Provider: Sera Sanchez RN)1656 (Given - Provider: Sera Sanchez RN) HYDROmorphone (DILAUDID) tablet 2-4 mg 2-4 mg, oral, EVERY 3 HOURS PRN, Starting on Fri11/26/22 at 1641, Until Fri11/27/22 at 1545, Pain, Routine 1650 (Given - Provider: Sera Sanchez RN)2129 (Given - Provider: Otilia Pickett, ALEXA) 0625 (Given - Provider: Otilia Pickett, ALEXA)1326 (Given - Provider: Anderson Baeza, ALEXA) documented in this encounter Orders Medications Ordered That John ht Not Have Been Administered Count Last Ordered Date First Ordered Date atropine 0.1 mg/mL syringe 0.5 mg 1 023 ceFAZolin (ANCEF) syringe 2 g 1 11/26/2022 [...] First Orde red Date MISCELLANEOUS DISCHARGE INSTRUCTIONS 1 05/2022 documented in this encounter Additional Health Concerns Infection Onset Date Last Indicated Resolved Time MDR-GNR Comment:IP Note: 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
--- OUTSIDE RECORDS SUMMARY | 2023-12-18 00:13 | XMS_ITS | Encounter Summary ---
Author Organization [facility] Address [address] [place] [address] Care Team Providers Care Bread Dough Mixer Name Role Phone Victor Hugo Sera Tommy STEINER Primary Care Provider + Reason for Visit * Reason Onset Date Comments Appointment Related 09/12/2022 Encounter Details Date Type Department Care Team (Late st Contact Info) Description 09/12/2022 Telephone [facility] Urology - [address] [address] Hao Rodríguez MD 111 [facility], [address] [place] [phone] Appointment Related Social History Tobacco Use Types [...] * Telephone Encounter - Yani Green - 09/12/2022 1446 EDT Spoke with pt to resched appt. 02/14 BHI piece was a separate telemed but pt said her preference was all at once so I have updated it. * Telephone Encounter - Giselle Luong - 09/12/2022 1440 EDT Patient called to schedule follow-up and ultrasound documented in this encounter Plan of Treatment [...] documented as of this encounter Care Teams Bread Dough Mixer Relationship Specialty Start Date End Date Sera Gay FNP [address] [place] [address] PCP - General 09/02/13 10/31/22 documented as of this encounter
--- OUTSIDE RECORDS SUMMARY | 2023-12-18 00:13 | XMS_ITS | Encounter Summary ---
Author Organization [facility] Address [address] [place] [address] Care Team Providers Care Pyrometer Temperature Regulator Name Role Phone Victor HugoSera Tommy STEINER Primary Care Provider + Encounter Details Date Type Department Care Team (Latest Contact Info) Description 10/23/2020 Travel Social History Tobacco Use Types Packs/Day [...] documented as of this encounter Care Teams Pyrometer Temperature Regulator Relationship Specialty Start Date End Date Sera Gay FNP [address] [place] [address] PCP - General 09/02/13 10/31/22 documented as of this encounter
--- OUTSIDE RECORDS SUMMARY | 2023-12-18 00:13 | XMS_ITS | Encounter Summary ---
Author Organization [facility] Address [address] [place] [address] Care Team Providers Care Public Space Attendant Name Role Phone Arabella Godinez OFFICE WORKFORCE PLANNER Primary Care Provider [phone] Reason for Visit * Reason Onset Date Comments Follow-up 12/12/2022 Encounter Details Date Type Department Care Team (Late st Contact Info) Description 12/12/2022 Telephone [facility] General Surgery - [address] [address] Silvio Manrique MD 111 [facility], [address] [place] [address] Follow-up Social History Tobacco Use Types Packs/Day Years [...] encounter Miscellaneous Notes * Telephone Encounter - Mari Jones RN - 12/12/2022 1323 EDT Call out to Blessing. She has developed a rash underneath where her binder lays. She describes the rashas itchy. She has tried wearing a shirt underneath the binder and tried without an additional layer. She will try a 1% hydrocortisone cream and see how this helps her symptoms. * Telephone Encounter - Sarah Sharma - 12/12/2022 1206 EDT Pt states she has broken out in a rash not sure if from binder , benadryl not helping documented in this encounter Plan of Treatment [...] documented as of this encounter Care Teams Public Space Attendant Relationship Specialty Start Date End Date Arabella Godinez NP [address] [place] [address] PCP - General Family Medicine - Primary Care 11/01/22 documented as of this encounter
--- OUTSIDE RECORDS SUMMARY | 2023-12-18 00:13 | XMS_ITS | Encounter Summary ---
Author Organization [facility] Address [address] [place] [address] Care Team Providers Care Government Gauger Name Role Phone Arabella Godinez FOOD OR BAGGAGE HANDLING RAMPMAN Primary Care Provider [phone] Reason for Visit * Reason Onset Date Comments Prior Auth, Medication 11/27/2022 Encounter Details Date Type Department Care Team (Late st Contact Info) Description 11/27/2022 Telephone [facility] General Surgery - [address] [address] Silvio Manrique MD [address] [facility], [address] [place] [address] Prior Auth, Medication Social History Tobacco Use Types Packs/Day Years [...] Telephone Encounter - Mari Jones RN - 11/28/2022 1024 EDT PA submitted, denied by insurance * Telephone Encounter - Bushra Tobias - 11/27/2022 0930 EDT NEEDS PRIOR AUTHORIZATION methocarbamoL (ROBAXIN) tablet 750 mg qid documented in this encounter Plan of Treatment [...] documented as of this encounter Care Teams Government Gauger Relationship Specialty Start Date End Date Arabella Godinez NP [address] [place] [address] PCP - General Family Medicine - Primary Care 11/01/22 documented as of this encounter
--- OUTSIDE RECORDS SUMMARY | 2023-12-18 00:13 | XMS_ITS | Clinical Summary ---
Author Organization [facility] Address [address] [place] [address] Care Team Providers Care Centrifugal Screen Tender Name Role Phone Arabella Godinez SOFTWARE QUALITY ANALYST Primary Care Provider [phone] Allergies Active Allergy Reactions Criticality Noted Date [...] naloxone (NARCAN) 4 mg/actuation nasal spray 1 [place] by nasal route as needed for Opioid Reversal. 2 Each 06/14/2020 Active Additional Information Patient not taking.Reported on 11/01/2022 spkxvoo-tbztzenck-hww henhydramine (MAGIC MOUTHWASH) Take 15 mL by [...] Overview: Added automatically from request for surgery [id number] Hydronephrosis of right kidney 05/22/2020 Overview: Added automatically from request for surgery [id number] Ureteral stricture, right 05/22/2020 Sepsis 03/04/2016 Bacteremia [...] PF 0.5 ml IM (3 yrs+) 03/06/2016 Surgical History Surgery Date Site/Laterality Comments TUBAL LIGATION PILONIDAL CYST EXCISION KNEE ARTHROSCOPY OVARIAN CYST REMOVAL HYSTERECTOMY Medical History Medical History Date Comments Hypercholesteremia Interstitial cystitis Depression Diabetes mellitus (HCC-CMS) Calculus of kidney 02/29/2016 Sepsis 03/04/2016 Bacteremia 03/04/2016 UTI (urinary tract infection) 03/04/2016 Nausea 03/04/2016 Chills 03/04/2016 Left flank pain 03/04/2016 Exercise involving walking Hypertension med controlled Diabetes mellitus, type 2 (HCC-CMS) GERD (gastroesophageal reflux disease) IBS (irritable bowel syndrome) Anxiety med controlled Pain Back pain Arthritis right hip and ba ck Family History Medical History Relation Comments Cancer Father Cancer Mother Diabetes Mother Relation Status Comments Father Mother Alive Social History Tobacco Use Types Packs/Day Years [...] Sexual Orientation Straight 12/09/2019 16 :14 EDT Obstetrics History Last Filed Vital Signs Vital Sign Reading Time Taken Comments Blood Pressure 108/67 11/27/2022 0922 EDT Pulse 76 11/27/2022 0922 EDT Temperature 36.6 ??C (97.8 ??F) 11/27/2022 0922 EDT Respiratory Rate 18 11/27/2022 0922 EDT Oxygen Saturation 95% 11/27/2022 0922 EDT Inhaled Oxygen Concentration - - Weight 109.2 kg (240 lb 11.9 oz) 11/26/2022 1206 EDT Height 165.1 cm (5' 5) 11/26/2022 1206 EDT Body Mass Index 40.06 11/26/2022 1206 EDT Plan of Treatment Health Maintenance Due Date Last Done Comments Hepatitis C Screen 1970 Hepatitis B Vaccine (1 of 3 - 19+ 3-dose series) 07/25 COVID-19 Vaccine ( season) 2022 Medical Devices Implanted Type Area Director Of Promotions Device Identifier Shelf Expiration Date Model / Serial / Lot Mesh Surgical Brittney Synth Polyprp Oval 4.5x5in Ventralight [id number] - [id number] Implanted:Qty: 1 on 11/26/2022 by Silvio Manrique MD at [facility] Mesh N/A: Abdomen [employer] [id number] 10/24/2023 [id number] / N/A / [id number] Stent Ureteral Double Pigtail Tapered Tip [id number] Inlay Elrama [id number] - [id number] Implanted:Qty: 1 on 05/22/2020 by Tracey De La Rosa MD at [facility] Stent Right: Ureter [employer] [id number] / [id number] / Stent Ureteral 7fr X 26cm Double Pigtail Tapered Tip Inlay Lubricious Coated - [id number] Implanted:Qty: 1 on 06/13/2020 by Hao Rodríguez MD at [facility] Stent Right: Ureter 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 Patient Care Teams Centrifugal Screen Tender Relationship Specialty Start Date End Date Arabella Godinez NP [address] [place] [address] PCP - General Family Medicine - Primary Care 11/01/22
--- OUTSIDE RECORDS SUMMARY | 2023-12-18 00:13 | XMS_ITS | Encounter Summary ---
Author Organization [facility] Address [address] [place] [address] Care Team Providers Care Mat Roller Name Role Phone Sera Gay Primary Care Provider + Reason for Visit * (Routine) - Receiving Office to Obtain Authorization Specialty Diagnoses / Procedures Referred By Claudio t Referred To Contact Procedures CT OUTSIDE IMAGES BODY Unknown, Provider, Referral ID Status Reason Start Date Expiration Date Visits Requested Visits Authorized [id number] Receiving Office to Obtain Authorization 12/18/2020 1 1 Encounter Details Date Type Department Care Team (Latest Contact Info) Description 12/18/2020 16:19 EDT - 12/18/2020 23:59 EDT Hospital Encounter [facility] Secondary Reads [place] Discharge Disposition: Home or Self Care Social [...] No 05/22/2020 documented as of this encounter Medications at Time of Discharge Medication Sig Dispensed Refills Start Date End Date amitriptyline (ELAVIL) 25 mg tablet Take 1 Tablet by mouth daily. clidinium-chlordiazepoxide (LIBRAX, WITH CLIDINIUM,) 5-2.5 mg per capsule Take 1 Cap by mouth 3 times daily. docusate sodium (COLACE) 100 mg capsule Take 1 Cap by mouth 2 times daily. 06/14/2020 gabapentin (NEURONTIN) 400 mg capsule Take 1 Capsule by mouth 3 times daily. METOPROLOL SUCCINATE ORAL Take 50 mg by mouth 2 times daily. todwygi-nxjypegkh-kzqzfxxn dramine (MAGIC MOUTHWASH) Take 15 mL by mouth every 4 hours as needed for Pain. Swish and spit 120 mL 06/14/2020 naloxone (NARCAN) 4 mg/actuation nasal spray 1 [place] by nasal route as needed for Opioid [...] capsule Take 10 Capsules by mouth daily. acetaminophen (TYLENOL) 325 mg tablet Take 3 Tabs by mouth every 6 hours as needed for Pain. 06/14/2020 11/27/2022 documented as of this encounter Discharge Disposition Disposition Code Departure Means Destination Home or Self Care documented in this encounter Plan of Treatment Not on file documented as of this encounter Procedures Procedure Name Priority Date/Time Associated Diagnosis Comments CT OUTSIDE IMAGES BODY Routine 12/18/2020 16:19 EDT documented in this encounter Results * CT OUTSIDE IMAGES BODY (12/18/2020 16:19 EDT) Narrative 12/18/2020 16:19 EDT This is a non-reportable exam. 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
--- OUTSIDE RECORDS SUMMARY | 2023-12-18 00:13 | XMS_ITS | Encounter Summary ---
[place] [address] Care Team Providers Care Parts Cataloger Name Role Phone Arabella Godinez APRN Primary Care Provider [phone] Encounter Details Date Type Department Care Team (Late st Contact Info) Description 11/28/2004 [place] [address] Sai Garber MD OBSTETRICS & GYNECOLOGY Social History Tobacco Use Types Packs/Day Years Used Date Smoking Tobacco: Never Assessed Sex and Gender Information Value Date Recorded Sex Assigned at Not on file Gender Identity Not on file Sexual Orientation Not on file documented as of this encounter Plan of Treatment Not on file documented as of this encounter Procedures Procedure Name Priority Date/Time Associated Diagnosis Comments SURGICAL PATHOLOGY REPORT Routine 11/28/2004 11:00 AM EDT documented in this encounter Results * Surgical Pathology Report (11/28/2004 11:00 AM EDT) Surgical Pathology Report [id number] ? Location: The signing pathologist has (i) examined the relevant preparation(s) for the specimen(s) and (ii) rendered or confirmed the diagnosis(es). . ?Pathology Surgical Pathology Final Report Clinical Information Specimen Submitted: A - Ovarian lesion: Right B - Peritoneal biopsy: Anterior cul-de-sac Clinical History: CD: Dysmenorrhea, dyspareunia Gross Description A - Labeled/Fixative: Right ovarian lesion, formalin. Qty/Size/Weight: ?Fragments, 0.8 x 0.8 x 0.3 cm. Tissue Description: ?? Soft, bai-red tissue. Sections/Processi ng: ??(T1) B - Labeled/Fixative: Peritoneal biopsy anterior cul-de-sac, formalin. Qty/Size/Weight: ?Five, ranging from 0.1 cm to 0.3 cm in greatest ?dimension. Tissue Description: ?? Soft, bai tissues. Sections/Processi ng: ??(T1) ??aje/SNS Microscopic Description Slides reviewed, microscopic description not recorded. Diagnosis A - Right ovarian lesion, biospy: ?1. Palisading granulomas (see Comment). ?2. No evidence of malignancy or endometriosis. B - Peritoneal biopsy, anterior cul-de-sac: ?1. Chronic inflammation, foreign body giant cell reaction, and ? palisading granuloma. ?2. No evidence of malignancy or endometriosis. CR-0 12/10/04 JLG 12/10/04 Verified by: ? Royal Chester MD ?Pathologist ?(Electronic Signature) The attending pathologist whose signature appears on this report has reviewed all diagnostic slides and has edited the gross and/or microscopic portion of the report in rendering the final pathologic diagnosis. Comment ?? The sections of the right ovarian biopsy show multiple palisading granulomas encasing necrotic/necrobio tic stroma/connective tissue and pigmented material. 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 Palisading granulomas can be seen in rheumatoid arthritis but they lack the pigment deposition noted in the current ovarian granulomas. ??The case was discussed with Dr. Garber. MEGGAN MORTONDRU 11/28/2004 11:0 0 AM EDT Sai Garber MD PATHOLOGY/CYTOLOGY O RDERABLES MEGGAN MOLINA documented in this encounter Visit Diagnoses Not on filedocumented in this encounter Care Teams Parts Cataloger Relationship Specialty Start Date End Date Arabella Godinez, KNITTING TEACHER [address] [place] [address] PCP - General Family Medicine 01/16/23 documented as of this encounter
--- OUTSIDE RECORDS SUMMARY | 2023-12-18 00:13 | XMS_ITS | Encounter Summary ---
Author Organization [place] [address] Care Team Providers Care Fine Artist Name Role Phone Arabella Godinez RAIMUNDO Primary Care Provider [phone] Encounter Details Date Type Department Care Team (Late st Contact Info) Description 01/02/2006 [place] [id number] Romana Otero BUSINESS CENTER ATTENDANT [facility] [place] [address] Social History Tobacco Use Types Packs/Day Years Used Date Smoking Tobacco: Never Assessed Sex and Gender Information Value Date Recorded Sex Assigned at Not on file Gender Identity Not on file Sexual Orientation Not on file documented as of this encounter Plan of Treatment Not on file documented as of this encounter Procedures Procedure Name Priority Date/Time Associated Diagnosis Comments NON-ENTERPRISE APPLICATION ARCHITECT FINAL REPORT Routine 01/02/2006 5:11 PM EDT documented in this encounter Results * Non-Seismograph Recorder Final Report (01/02/2006 5:11 PM EDT) Non-Seismograph Recorder Final Report [id number] ? Location: The signing pathologist has (i) examined the relevant preparation(s) for the specimen(s) and (ii) rendered or confirmed the diagnosis(es). . ? Pathology Non-Seismograph Recorder Cytology Final Report Clinical Information Specimen Source: ?Urine, Voided. Clinical History/Impress ion: ?? Hematuria. Gross Description: ?Rec'd in Cytorich blue, ??approx. 40 ml. total volume of ??clear, yellow fluid. ?Total Prep - LBP 1. Interpretation Specimen submitted is satisfactory. Diagnosis Negative for Malignancy 01/06/06 ?Screened by: ? JS ?Rescreened by: ?? EJG 01/06/06 ?Verified by: ? Silvio Martínez MD ? Pathologist ? (Electronic Signature) Comment Predominantly squamous cells. MEGGAN MORTONENNIUM 01/02/2006 5:11 PM EDT Romana Chan APRN PATHOLOGY/CYTOL OGY ORDERABLES MEGGAN MOLINA documented in this encounter Visit Diagnoses Not on filedocumented in this encounter Care Teams Fine Artist Relationship Specialty Start Date End Date Arabella Godinez APRN [address] [place] [address] PCP - General Family Medicine 01/16/23 documented as of this encounter
--- OUTSIDE RECORDS SUMMARY | 2023-12-18 00:13 | XMS_ITS | Encounter Summary ---
[place] [address] Care Team Providers Care Touch Up Painter Name Role Phone Teresa Gay APRN Primary Care Provider [phone] Encounter Details Date Type Department Care Team (Latest Contact Info) Description 11/14/2017 - 11/14/2017 11:59 PM EDT Hospital Encounter [place] [address] Teresa Gay APRN [address] [place] [phone] Discharge Disposition: Home Social History Tobacco Use Types Packs/Day Years Used Date Smoking Tobacco: Never Assessed Sex and Gender Information Value Date Recorded Sex Assigned at Not on file Gender Identity Not on file Sexual Orientation Not on file documented as of this encounter Medications at Time of Discharge Medication Sig Dispensed Refills Start Date End Date doxycycline (VIBRA-TABS) 100 mg Tablet 07/07/2017 phenazopyridine (PYRIDIUM) 200 mg Tablet Take 200 mg by mouth. 016 sertraline (ZOLOFT) 50 mg Tablet TAKE 1 2 TABLET BY MOUTH DAILY FOR 1 WEEK THEN INCREASE TO ONE TABLET DAILY 2 10/08/2017 piroxicam (FELDENE) 10 mg capsule 10 MG PO Twice daily 06/15/2010 amitriptyline (ELAVIL) 25 mg tablet 25 MG = 1 Tablet(s), PO, Twice daily 08/01/2009 gabapentin (NEURONTIN) 300 mg capsule 300 MG = 1 Capsule(s), PO, Three times daily 08/01/2009 clidinium-chlordiazePOXID E (LIBRAX, WITH CLIDINIUM,) 5-2.5 mg per capsule 1 Capsule(s), PO, Once daily and PRN 08/01/2009 METOPROLOL TARTRATE (LOPRESSOR ORAL) 08/01/2009 acetaminophen (TYLENOL) 325 mg tablet 08/01/2009 documented as of this encounter Plan of Treatment Not on file documented as of this encounter Procedures Procedure Name Priority Date/Time Associated Diagnosis Comments FILM LIBRARY STORAGE ONLY DX KNEE Routine 11/14/2017 12:00 AM EDT documented in this encounter Results * Film Library- Storage Only DX Knee (11/14/2017 12:00 AM EDT) Narrative [facility] [place] - 11/17/2017 9:11 AM EDT This exam is for storage only and is auto-finalizing. Teresa Gay APRN [facility] [place] RDER[place]LES Performing Organization Address City/State/[place] Co de Phone Number [place], [place] documented in this encounter Visit Diagnoses Not on filedocumented in this encounter Care Teams Touch Up Painter Relationship Specialty Start Date End Date Teresa Gay APRN [address] [place] [address] PCP - General Family Medicine 01/05/16 09/12/21 documented as of this encounter
--- OUTSIDE RECORDS SUMMARY | 2023-12-18 00:13 | XMS_ITS | Encounter Summary ---
Author Organization [facility] Address [address] [place] [address] Care Team Providers Care Jig Boring Machine Set Up Operator Name Role Phone Arabella Godinez BELTING AND WEBBING INSPECTOR Primary Care Provider [phone] Encounter Details Date Type Department Care Team (Latest Contact Info) Description 11/01/2022 10:01 EDT - 11/01/2022 23:59 EDT Hospital Encounter [facility] Non-Invasive Cardiology - [address] [address] Discharge Disposition: Home or Self Care Social [...] tablet Take 1 Tablet by mouth daily. clidinium-chlordiazepoxid e (LIBRAX, WITH CLIDINIUM,) 5-2.5 mg per capsule [...] 50 mg by mouth 2 times daily. byvuand-gaexvghyu-ncvpvmm ydramine (MAGIC MOUTHWASH) Take 15 mL by mouth every 4 hours as needed for Pain. Swish and spit 120 mL 06/14/2020 naloxone (NARCAN) 4 mg/actuation nasal spray 1 [place] by nasal route as needed for Opioid [...] Procedure Name Priority Date/Time Associated Diagnosis Comments EKG 12-LEAD Routine 11/01/2022 10:13 EDT Epigastric hernia documented in this encounter Results * EKG 12-LEAD (11/01/2022 10:13 EDT) 11/01/2022 10:1 3 EDT Narrative [facility] EKG - 11/03/2022 16:19 EDT ? [facility] ? Test Date: ?2022-11-01 Pat Name: ? BLESSING ORTIZ ?Department: ?? [id number] ? Room: ? Gender: ? Female ? Reed Dipper: ?? [id number] : ?1970 ? Requested By: ADAMA ROMERO Order Number: [id number] ? Patricia RANDLE: ?? RANJEET FREEDMAN MD ? Measurements Intervals ?[place] ? Rate: ? 66 ? P: ?46 [place]: ? 158 ?QRS: ?54 QRSD: ? 101 ?T: ?42 QT: ? 396 ? QTc: ?417 ? Interpretive Statements SINUS RHYTHM Compared to ECG 03/01/2016 05:11:53 Sinus tachycardia no longer present T-wave abnormality no longer present I reviewed the tracing and have either agreed or edited the findings in this report. Electronically Signed On 11-03-2022 16:19:59 EDT by RANJEET FREEDMAN MD. Procedure Note Ranjeet Freedman MD - 11/03/2022 [facility] Test Date: 2022-11-01 Pat Name: BLESSING ORTIZ Department: [id number] Room: Gender: Female Reed Dipper: [id number] : 1970 Requested By: ADAMA ROMERO Order Number: [id number] Reading MD: RANJEET FREEDMAN MD Measurements Intervals [place] Rate: 66 P: 46 [place]: 158 QRS: 54 QRSD: 101 T: 42 QT: 396 QTc: 417 Interpretive Statements SINUS RHYTHM Compared to ECG 03/01/2016 05:11:53 Sinus tachycardia no longer present T-wave abnormality no longer present I reviewed the tracing and have either agreed or edited the findings inthis report. Electronically Signed On 11-03-2022 16:19:59 EDT by RANJEET LOTT. 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
--- OUTSIDE RECORDS SUMMARY | 2023-12-18 00:13 | XMS_ITS | Encounter Summary ---
Author Organization [facility] Address [address] [place] [address] Care Team Providers Care Senior Center Director Name Role Phone Victor Hugo Sera STEINER Primary Care Provider + Reason for Visit * Radiology Services (Routine) - Closed Specialty Diagnoses / Procedures Referred By Claudio quinteros Referred To Contact Radiology Diagnoses d/t to pedro gilmore.10/16. Procedures NM RENAL FLOW/FUNCTION W PHAR INTERVENTION NM RENAL FLOW/FUNCITON W PHAR INTERVENTION Hao Rodríguez MD [address] [facility], [address] [place] [address] [address] Referral ID Status Reason Start Date Expiration Date Visits Re quested Visits Authorized [id number] Closed 10/23/2020 1 1 Encounter Details Date Type Department Care Team (Latest Contact Info) Description 10/23/2020 12:08 EDT - 10/23/2020 23:59 EDT Hospital Encounter edical Center Radiology Nuclear Medicine and PET - [facility] [address] [place] [address] Ureteral stricture Discharge Disposition: Home or Self Care Social [...] 50 mg by mouth 2 times daily. ivjsewn-rndjgutrm-qgzwcbcs dramine (MAGIC MOUTHWASH) Take 15 mL by mouth every 4 hours as needed for Pain. Swish and spit 120 mL 06/14/2020 naloxone (NARCAN) 4 mg/actuation nasal spray 1 [place] by nasal route as needed for Opioid [...] Procedure Name Priority Date/Time Associated Diagnosis Comments NM RENAL FLOW/FUNCTION W PHAR INTERVENTION Routine 10/23/2020 13:57 EDT Ureteral stricture documented in this encounter Results * NM RENAL FLOW/FUNCTION W PHAR INTERVENTION (10/23/2020 13:57 EDT) Anatomical Region Laterality Modality Abdomen Nuclear Medicine 10/23/2020 14:1 7 EDT Impressions 10/23/2020 14:17 EDT No evidence of obstruction. Slightly asymmetric renal function, decreased on the right, unchanged from December 06, 2019 Narrative 10/23/2020 14:17 EDT NM RENAL FLOW/FUNCTION W PHAR INTERVENTION ??10/23/2020 1:00 PM Signs and Symptoms: ??s/p ureteral repair Comparison: Ultrasound September 01, 2020, CT May 22, 2020, renal scan December 06, 2019 Technique: After simultaneous intravenous injection of 25 mg Furosemide and 5 mCi Tc-99m MAG-3, a renal flow study with 2 second images for 1 minute, followed by sequential dynamic 30 second images for 30 minutes were obtained in posterior projection. Renogram time activity curves were performed. Findings: Left kidney: Normal flow, parenchymal uptake, parenchymal transit, excretion and washout from the collecting system. The collecting system is not dilated. The ureter is not dilated. Right kidney: There is ptosis of the right kidney with horizontal axis, unchanged from the prior exams. There is normal flow, parenchymal uptake, parenchymal transit, excretion and washout from the collecting system. Collecting system is not dilated. The ureter is not dilated. Urinary bladder: Moderate postvoid residual. Time to peak (min): ??left kidney 6; right kidney 5 T 1/2 (min): left kidney 13; right kidney 11 Approximate* differential %: left kidney 60; right kidney 40 The asymmetry of renal position prevents accurate comparison of split function. In comparison to the prior exam which was performed with the same technique there is no change. Procedure Note Niall Holbrook MD - 10/23/2020 NM RENAL FLOW/FUNCTION W PHAR INTERVENTION 10/23/2020 1:00 PM Signs and Symptoms: s/p ureteral repair Comparison: Ultrasound September 01, 2020, CT May 22, 2020, renal scanAugust 2019 Technique: After simultaneous intravenous injection of 25 mg Furosemide and 5 mCiTc-99m MAG-3, a renal flow study with 2 second images for 1 minute,followed by sequential dynamic 30 second images for 30 minutes wereobtained in posterior projection. Renogram time activity curves wereperformed. Findings: Left kidney: Normal flow, parenchymal uptake, parenchymal transit,excretion and washout from the collecting system. The collecting system isnot dilated. The ureter is not dilated. Right kidney: There is ptosis of the right kidney with horizontal axis,unchanged from the prior exams. There is normal flow, parenchymal uptake,parenchymal transit, excretion and washout from the collecting system.Collecting system is not dilated. The ureter is not dilated. Urinary bladder: Moderate postvoid residual. Time to peak (min): left kidney 6; right kidney 5 T 1/2 (min): left kidney 13; right kidney 11 Approximate* differential %: left kidney 60; right kidney 40 The asymmetry of renal position prevents accurate comparison of splitfunction. In comparison to the prior exam which was performed with thesame technique there is no change. IMPRESSION No evidence of obstruction. Slightly asymmetric renal function, decreased on the right, unchanged fromAugust 2019 Hao Rodríguez MD IMG NM ORDERABLES documented in this encounter Visit Diagnoses Diagnosis Ureteral stricture Stricture or kinking of ureter documented in this encounter Administered Medications Inactive Administered Medications - up to 3 most recent administrations Medication Order MAR Action Action Date Dose Rate Site furosemide (LASIX) injection 25 mg 25 mg, intravenous, Once in imaging, 1 dose, Starting on Fri10/23/20 at 1251, Until Fri10/23/20 at 1251, Routine, Imaging Protocol Orders Given 10/23/2020 12:51 EDT 25 mg IV technetium (Tc-99m) mertiatide (MAG3) injection 5 millicurie 5 millicurie, radiopharm IV, NOW X1, 1 dose, On Fri10/23/20 at 1315, Routine, Imaging Protocol Orders Given 10/23/2020 12:52 EDT 5.3 millicuries Right ACF documented in this encounter Additional Health Concerns Infection Onset Date Last Indicated Resolved Time MDR-GNR Comment:IP Note: 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
--- OUTSIDE RECORDS SUMMARY | 2023-12-18 00:13 | XMS_ITS | Encounter Summary ---
Author Organization [facility] Address [address] [place] [address] Care Team Providers Care Architectural Draftsman Name Role Phone Arabella Godinez DRESSER TENDER Primary Care Provider [phone] Reason for Visit * Reason Comments New Patient Visit Unspecified abdomina l hernia without obstruction * Referral (Routine) - Receiving Office to Obtain Authorization Specialty Diagnoses / Procedures Referred By Contanne t Referred To Contact General Surgery Diagnoses Unspecified abdominal hernia without obstruction or gangrene Arabella Godinez, DRESSER TENDER [address] [place] [address] [place] [address] Gen Surgery [address] [place] [address] Referral ID Status Reason Start Date Expiration Date Visits Requested Visits Authorized [id number] Receiving Office to Obtain Authorization 1 1 Encounter Details Date Type Department Care Team (Late st Contact Info) Description 11/01/2022 9:00 EDT Office Visit [facility] General Surgery - [address] [address] Silvio Manrique MD [address] [facility], [address] [place] [phone] Epigastric hernia (Primary Dx) Social History Tobacco Use Types Packs/Day Years [...] Sign Reading Time Taken Comments Blood Pressure 138/70 11/01/2022 0855 EDT Pulse 72 11/01/2022 0855 EDT Temperature - - Respiratory Rate - - Oxygen Saturation - - Inhaled Oxygen Concentration - - Weight 111.1 kg (245 lb) 11/01/2022 085 5 EDT pt. weighed w/ shoes on Height 163.8 cm (5' 4.49) 11/01/2022 0 855 EDT Body Mass Index 41.42 11/01/2022 0855 EDT documented in this encounter Functional Status [...] No 05/22/2020 documented as of this encounter Progress Notes * Silvio Manrique MD - 11/01/2022 0900 EDT Images from the original note were not included. Division of General Surgery Date of Service: 11/01/2022 PROBLEM: Ventral hernia HISTORY OF PRESENT ILLNESS: I am seeing Blessing Daugherty in the office today in consultation by [...] seem). She has never had angina or AK but notes it runs in her family. [...] mg capsule ??? METOPROLOL SUCCINATE ORAL ??? tmwrkja-itdjjhutn-ssauxnbrecgylew (MAGIC MOUTHWASH) ??? naloxone (NARCAN) 4 mg/actuation [...] seen and examined with Dr. Manrique. MARI YOUNGBLOOD MD 11/01/2022 9:45 Attestation statement: I performed [...] ventral hernia repair was described to Ms. Daugherty. Risks include infection, bleeding, injury to bowel, and hernia recurrence. Surgery will be scheduled at the first mutually convenienttime. Avoid any heavy lifting after the surgery for about 3months. --Silvio Manrique MD CC: Primary Care Provider: Arabella Godinez Referring Provider: Arabella Godinez NP CC: Hao Rodríguez MD documented in this encounter Plan of Treatment Not on file documented as of this encounter Procedures Procedure Name Priority Date/Time Associated Diagnosis Comments ECG REPORT - SCANNED 11/04/2022 9:21 EDT EKG 12-LEAD Routine 11/01/2022 10:13 EDT Epigastric hernia documented in this encounter Results * ECG REPORT - SCANNED (11/04/2022 9:21 EDT) 11/04/2022 9:21 EDT Scan 2 Diffusion Operator PROCEDURE/MINOR ELSA GICAL ORDERABLES * EKG 12-LEAD (11/01/2022 10:13 EDT) 11/01/2022 10:1 3 EDT Narrative [facility] EKG - 11/03/2022 16:19 EDT ? The ? Test Date: ?2022-11-01 Pat Name: ? BLESSING WILLOW ?Department: ?? [id number] ? Room: ? Gender: ? Female ? Registered Nurse Cardiac Telemetry: ?? [id number] : ?1970 ? Requested By: ADAMA ROMERO Order Number: [id number] ? Patricia RANDLE: ?? RANJEET FREEDMAN MD ? Measurements Intervals ?[place] ? Rate: ? 66 ? P: ?46 [place]: ? 158 ?QRS: ?54 QRSD: ? 101 [...] Note Ranjeet Freedman MD - 11/03/2022 The Test Date: 2022-11-01 Pat Name: BLESSING DAUGHERTY Department: [id number] Room: Gender: Female Registered Nurse Cardiac Telemetry: [id number] : 1970 Requested By: ADAMA ROMERO Order Number: [id number] Reading MD: RANJEET FREEDMAN MD Measurements Intervals [place] Rate: 66 P: 46 [place]: 158 QRS: 54 QRSD: 101 T: 42 QT: 396 QTc: 417 Interpretive Statements SINUS RHYTHM Compared to ECG 03/01/2016 05:11:53 Sinus tachycardia no longer present T-wave abnormality no longer present I reviewed the tracing and have either agreed or edited the findings inthis report. Electronically Signed On 11-03-2022 16:19:59 EDT by RANJEET LOTT. 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
--- OUTSIDE RECORDS SUMMARY | 2023-12-18 00:13 | XMS_ITS | Encounter Summary ---
Author Organization [facility] Address [address] [place] [address] Care Team Providers Care Enamel Dipper Name Role Phone Victor Hugo Sera Tommy STEINER Primary Care Provider + Reason for Visit * Reason Onset Date Comments Appointment Related 12/14/2021 Encounter Details Date Type Department Care Team (Late st Contact Info) Description 12/14/2021 Telephone [facility] Urology - [address] [address] Hao Rodríguez MD [address] [place] [address], [address] [place] [phone] Appointment Related Social History Tobacco Use Types [...] Miscellaneous Notes * Telephone Encounter - Sarah Castañeda MA - 12/19/2021 1310 EDT Patient no showed APRIL and office visit with Dr. Rodríguez on 12/19/21. Called and spoke to PT and rescheduled this appointment to 02/14/22 @ 11:30 for a APRIL and telephone follow up with Dr. Rodríguez later that afternoon. SARAH CASTAÑEDA MA 12/19/2021 13:11 * Telephone Encounter - Ny Waggoner - 12/18/2021 1508 EDT attempted to call patient to reschedule ov with Dr Rodríguez 12/19 to telemed, no answer. * Telephone Encounter - Ny Waggoner - 12/14/2021 0931 EDT LM for pt on home phone as mobile phone not accepting calls at this time. Asked pt to call back regarding appt with Dr Rodríguez on 12/19. documented in this encounter Plan of Treatment [...] documented as of this encounter Care Teams Enamel Dipper Relationship Specialty Start Date End Date Sera Gay FNP [address] [place] [address] PCP - General 09/02/13 10/31/22 documented as of this encounter
--- OUTSIDE RECORDS SUMMARY | 2023-12-18 00:13 | XMS_ITS | Encounter Summary ---
Author Organization [facility] Address [address] [place] [address] Care Team Providers Care Latin Dance Instructor Name Role Phone Sera Gay Tommy STEINER Primary Care Provider + Reason for Visit * Reason Comments Discuss Test Results Encounter Details Date Type Department Care Team (Late st Contact Info) Description 12/19/2020 11:45 EDT Telemedicine [facility] Urology - [address] [address] Hao Rodríguez MD [address] [place] [address], [address] [place] [address] Ureteral stricture (Primary Dx) Social History Tobacco Use Types [...] as of this encounter Progress Notes * Hao Rodríguez MD - 12/19/2020 1145 EDT Ms. Ortiz is a 50-year-old woman who underwent a right robotic assisted laparoscopic ureteral repair with buccal mucosal for a ureteral stricture in May 2020. She has done very well since. She had her stent removed and a follow-up ultrasound showed complete resolution of her hydronephrosis. She underwent a nuclear renal scan which shows no evidence of obstruction indicating successful response to her repair. She does continue to have her stone disease which we manage carefully by Dr. Ibarra for both prevention and treatment. I will plan to see her back in 1 years time with a repeatrenal ultrasound. TELEMEDICINE VIDEO VISIT Today's visit was provided through telemedicine video conferencing with Zoom : The location of the patient : home The location of the provider: office The following staff and their role did participate in today's encounter visit: Hao Rodríguez MD The concept of ???Telemedicine?? has been described to the patient.? Patient has been informed of the anticipated benefits and possible risks.? Patient understands the information provided regardingtelemedicine, has had the opportunity to ask questions about this information, and all questions have been answered to patient???s satisfaction. Patient consents for the use of telemedicine in his/her medical care and authorizes the transmission of any relevant medical information to providers and their staff involved in patient???s medical or mental health care. 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
--- OUTSIDE RECORDS SUMMARY | 2023-12-18 00:13 | XMS_ITS | Encounter Summary ---
Author Organization [facility] Address [address] [place] [address] Care Team Providers Care Malted Milk Masher Name Role Phone Victor Hugo Sera STEINER Primary Care Provider + Reason for Visit * (Routine/Next Available) - Receiving Office to Obtain Authorization Specialty Diagnoses / Procedures Referred By Claudio t Referred To Contact Procedures CT OUTSIDE IMAGES ABDOMEN Imaging, External Referral ID Status Reason Start Date Expiration Date Visits Requested Visits Authorized [id number] Receiving Office to Obtain Authorization 09/09/2022 1 1 Encounter Details Date Type Department Care Team (Latest Contact Info) Description 09/05/2022 - 09/05/2022 23:59 EDT Hospital Encounter [facility] Center Secondary Reads [place] Discharge Disposition: Home or [...] 50 mg by mouth 2 times daily. eumhntg-pahxsqsat-ukzrpujq dramine (MAGIC MOUTHWASH) Take 15 mL by mouth every 4 hours as needed for Pain. Swish and spit 120 mL 06/14/2020 naloxone (NARCAN) 4 mg/actuation nasal spray 1 [place] by nasal route as needed for Opioid [...] Date/Time Associated Diagnosis Comments CT OUTSIDE IMAGES ABDOMEN Routine 09/05/2022 13:46 EDT documented in this encounter Results * CT OUTSIDE IMAGES ABDOMEN (09/05/2022 13:46 EDT) Narrative 09/09/2022 13:47 EDT This is a non-reportable exam. 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
--- OUTSIDE RECORDS SUMMARY | 2023-12-18 00:14 | XMS_ITS | Encounter Summary ---
Author Organization [facility] Address [address] [place] [address] Care Team Providers Care Pharmacy Sales Representative Name Role Phone Victor Hugo Sera Tommy STEINER Primary Care Provider + Reason for Visit * Reason Onset Date Comments Appointment Related 08/15/2020 Encounter Details Date Type Department Care Team (Late st Contact Info) Description 08/15/2020 Telephone [facility] U[facility] - [address] [address] Hao Rodríguez MD [address] [place] [address], [address] [place] [id number] Appointment Related Social History Tobacco Use Types [...] encounter Miscellaneous Notes * Telephone Encounter - Beverley Powell - 08/15/2020 1802 EDT Called and spoke to the patient, confirming her new ultrasound appt on August 31 at the [facility] at 2:00 pm.Her follow up ZOOM visit with Dr Rodríguez will be on September 04 at 2:15 pm. She is feeling much better and recovering from her surgeries and Covid. 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
--- OUTSIDE RECORDS SUMMARY | 2023-12-18 00:14 | XMS_ITS | Encounter Summary ---
Author Organization [facility] Address [address] [place] [address] Care Team Providers Care Laborer [place] Name Role Phone Victor Hugo Sera Tommy STEINER Primary Care Provider + Reason for Visit * Auth/Cert Specialty Diagnoses / Procedures Referred By Claudio quinteros Referred To Contact Diagnoses Ureteral stricture Procedures HI LAP,REIMPLANT URETER W/O CYSTO,STENT HI FULL THICK GRFT HEAD,FAC,HAND <20SQC HI CYSTOURETHROSCOPY,URETER CATHETER Cystoscopy, right retrograde pyelography, right robotic assisted laparoscopic ureteral repair with possible buccal mucosal graft . CYSTOSCOPY, WITH URETERAL CATHETER . Referral ID Status Reason Start Date Expiration Date Visits Re quested Visits Authorized [id number] 1 1 Encounter Details Date Type Department Care Team (Late st Contact Info) Description 06/13/2020 7:25 EST - 06/13/2020 11:50 EST Surgery [facility] OR [address] [place] [id number] Hao Rodríguez MD [address] [place] [address], [address] [place] [address] Cystoscopy, right retrograde pyelography, right robotic assisted laparoscopic ureteral repair with possible buccal mucosal graft, Right ureteroscopy [42288 (CPT??)] Surgery Details Date/Time Status Location OR Service Patient Class Case Class Case Type Trauma Case? 06/13/20 0725 Posted [facility] Urology Extende d Stay H - Elective Panel 1 Procedure [facility] Anes Op Region Wound Class Comments Cystoscopy, right retrograde pyelography, right robotic assisted laparoscopic ureteral repair with possible buccal mucosal graft, Right ureteroscopy Right General Ureter Class II/ Alejandro an Contaminated . Right General Ureter Class II/ Deloris n Contaminated CYSTOSCOPY, WITH URETERAL CATHETER . Right General Ureter Class II/ Clean Contaminated Surgeon Surgeon Role Service Panel Boris Nguyen MD Resident - Assisting Urology 1 Tracey De La Rosa MD Assisting Urology 1 Hao Rodríguez MD Primary Urology 1 Gale Chaidez PA-C Assisting Urology 1 documented in this encounter Social History [...] have Coronavirus / COVID-19? No / Unsure 06/13/2020 5:35 EST documented as of this encounter Last Filed Vital Signs Vital Sign Reading Time Taken Comments Blood Pressure 130/94 06/13/2020 0640 EST Pulse - - Temperature 37.4 ??C (99.3 ??F) 06/13/2020 0640 EST Respiratory Rate 15 06/13/2020 0640 EST Oxygen Saturation 96% 06/13/2020 0640 EST Inhaled Oxygen Concentration - - Weight 112.3 kg (247 lb 9.2 oz) 06/13/2020 0640 EST Height 163.8 cm (5' 4.5) 06/13/2020 0640 EST Body Mass Index 41.84 06/13/2020 0640 EST documented in this encounter Functional Status Functional [...] No 05/22/2020 documented as of this encounter Discharge Summaries * Gale Chaidez PA-C - 06/13/2020 1256 EST [facility] Urologic Surgery Discharge Summary Primary Care Provider: JATIN House Attending Physician: Hao Rodríguez MD Admit Date: 06/13/2020 Discharge Date: 06/14/2020 Disposition: Home with home health Problems and Procedures Admitting Diagnosis: Right ureteral stricture Principal/Final Diagnosis: Right ureteral stricture Additional Problems Managed in the Hospital Active Hospital Problems Diagnosis Date Noted ??? *Ureteral stricture 05/29/2020 Added automatically from request for surgery [id number] Resolved Hospital Problems No resolved problems to display. Principal Procedure: Cystoscopy, right ureteral catheter insertion, right retrograde pyelogram, right robotic assisted laparoscopic ureteral repair with buccal mucosal graft, right double-J ureteral stent placement Date: June 13, 2020 Secondary Procedures: none Hospital Course Pt is a 49 y/o female whom was admitted on 06/13/2020 after undergoing a right RAL ureteral repair. Pt was brought to the OR under general anesthesia and underwent an uncomplicated intraoperative course. Pt was brought to the PACU in stable condition with indwelling ashby catheter and JAMAR drain and was later transferred to the floor for continuing post-operative care. Postop day #1 patient was afebrile, vital signs stable. Pain well controlled. Good urinary output. Ashby catheter was removed and the patient voided spontaneously. Juan-Hudson drain was removed without complications prior to discharge. The patient was discharged to home on 06/14/2020. Patient was afebrile, vital signs stable, tolerating diet, ambulating and pain controlled oral analgesics at the time of discharge. The patienthad an uncomplicated hospital course. Patient will follow-up with for stent removal and postop visit. Allergies and Immunizations Allergies Allergen Reactions ??? [...] SpO2 O2 Flow Rate (L/min) O2 Device 06/14/20 1344 (Abnormal) 149/88 no documentation 98 BPM 18 37.2 ??C (99 ??F) 95 % no documentation no documentation 06/14/20 1000 133/90 82 88 BPM 16 36.7 ??C (98.1 ??F) no documentation no documentation no documentation 06/14/20 0834 (Abnormal) 144/85 no documentation 86 BPM no documentation no documentation no documentation no documentation no documentation 06/14/20 0546 125/81 82 81 BPM 16 37.1 ??C (98.7 ??F) 96 % no documentation no documentation 06/14/20 0400 no documentation no documentation no documentation no documentation no documentation no documentation 3 l/min Nasal cannula Results Pending at Discharge Test results still pending from this admission None Relevant Studies at Discharge None Last Lab Results at Discharge BUN: Lab Results Component Value Date BUN 9 (L) 06/14/2020 Creatinine: Lab Results Component Value Date CREATININE 0.80 06/14/2020 CBC: Lab Results Component Value Date WBC 9.66 06/14/2020 RBC 4.13 06/14/2020 HGB 12.3 06/14/2020 HCT 36.1 06/14/2020 MCV 87 06/14/2020 MCH 29.8 06/14/2020 MCHC 34.1 06/14/2020 PLT 79 (L) 06/14/2020 DIFFTYPE Manual 03/03/2016 Electrolytes: Lab Results Component Value Date NA 136 06/14/2020 K 3.9 06/14/2020 CL 100 06/14/2020 CO2 28 06/14/2020 Discharge Follow Up Upcoming Appointments Jul 12, 2020 14:30 Post Op Visit with Hao Rodríguez MD, Cystoscopy Scope [facility] Urology - [facility] (--) [address] [facility] [address] Gale Chaidez PA-C 06/14/2020 13:49 documented in this encounter Discharge Instructions * Discharge Instr - AVS First Page* Gale Chaidez PA-C - 06/14/2020 12:42 EST Diet: Eat small meals until good return of bowel function Drink plenty of fluids Avoid constipation Activity: No heavy lifting or strenuous exercise x 4-6 weeks May use stairs No lifting more than a gallon of milk Taking daily walks is advised to minimize blood clots, called a deep vein thrombosis, from forming in your legs. Prolonged sitting or lying in bed should be avoided. Driving: No driving until you completely healed and you have had your postoperative check with your surgeon. No driving while taking narcotic pain medication Skin/Wound Care: Resume normal skin care. Change drain site dressing daily or as needed until drainage stops Bathing: Okay to get wound wet, but pat dry. Do NOT rub the wound area. Shower only Shower with soap and water daily. May shower 24 hours after drain is removed Symptoms to Call Your Doctor About: Please call [facility] urology for any questions Burning with urination, Chest pain, Dizziness, Increased blood in urine, Increased pain, Nausea or vomiting, Pain unrelieved by medication, Redness, swelling or drainage from wound, Shortness of breath, Temperature greater than 101 degrees F and Urinary retention Appointments: Dr Rodríguez for stent removal and post-op visit. Future Appointments Date Time Provider Department Center 07/12/2020 14:30 Hao Rodríguez MD EP5 Uro None Follow-up Services Contacted at Discharge: Attending physician documented in this encounter Medications at Time [...] 50 mg by mouth 2 times daily. wdwphpj-tdsovmasz-ezbntyuw dramine (MAGIC MOUTHWASH) Take 15 mL by mouth every 4 hours as needed for Pain. Swish and spit 120 mL 06/14/2020 naloxone (NARCAN) 4 mg/actuation nasal spray 1 Ririe by nasal route as needed for Opioid [...] hours as needed for Pain. 06/14/2020 11/27/2022 HYDROmorphone (DILAUDID) 2 mg tablet Take 1 Tab by mouth every 8 hours as needed for up to 3 days for Pain. Daily Max: 6 mg 9 Tab 06/14/2020 06/17/2020 documented as of this encounter Ordered Prescriptions Prescription Sig Dispensed Refills Start Date End Da te rcdfdhv-xagwgbgfp-mbhlwbowd ramine (MAGIC MOUTHWASH) Take 15 mL by mouth every 4 hours as needed for Pain. Swish and spit 120 mL 06/14/2020 naloxone (NARCAN) 4 mg/actuation nasal spray 1 Ririe by nasal route as needed for Opioid Reversal. 2 Each 06/14/2020 ondansetron (ZOFRAN-ODT) 4 mg disintegrating tablet Take 1 Tab by mouth every 8 hours as needed for Nausea. 3 Tab 06/14/2020 docusate sodium (COLACE) 100 mg capsule Take 1 Cap by mouth 2 times daily. 06/14/2020 HYDROmorphone (DILAUDID) 2 mg tablet Take 1 Tab by mouth every 8 hours as needed for up to 3 days for Pain. Daily Max: 6 mg 9 Tab 06/14/2020 06/17/2020 acetaminophen (TYLENOL) 325 mg tablet Take 3 Tabs by mouth every 6 hours as needed for Pain. 06/14/2020 11/27/2022 documented in this encounter Discharge Disposition Disposition Code Departure Means Destination [facility] [place] [facility] documented in this encounter Progress Notes * Matilda Fragoso - 06/14/2020 1257 EST TRANSITION ASSISTANT DISCHARGE NOTE: DISCHARGE DATE/TIME: , Wednesday 06/[address] OF DISCHARGE: home MODE OF TRANSPORT: is here in town waiting to bring [facility] home IM SIGNED (Y/): n/a FORMS ON CHART (Y/N): n/a ACCEPTING MD AND NUMBER: Sera Gay [phone] ALEXA REPORT/UNIT: [place]/ [facility] [phone] PATIENT AWARE AND IN AGREEMENT OF PLAN: yes FAMILY NOTIFIED (IF APPLICABLE- Y/N): yes per patient PATHOLOGY ASSISTANT/CHARGE/MD NOTIFIED (Y/N): yes Perlita Fargoso RN CM #[id number] * DeepaKareenDuy Fany - 06/14/2020 1027 EST Initial Case Management/Social Work Assessment and Discharge Plan/Readmission Risk Assessment REASON FOR ADMISSION: Ureteral stricture Patient understands reason for admission: Yes(ureteral stricture) PATIENT INFO VERIFIED: PCP(Sera Gay) Type of housing (single family, condo, apartment, care home, single room occupancy, [facility] funded hotel room, group halfway) - single family home Who does the patient live with? Spouse, grandchild Does the patient have access to their own bedroom/bathroom/kitchen - or is it shared with others? Own bedroom/bathroom, shared living space LIVING ARRANGEMENTS AND ACCESSIBILITY ISSUES: Living Arrangements: Spouse / significant other, Family members Levels: 2 Stairs to enter: 2 Handicap access: Railings into home, Railings to upstairs, Railings to downstairs Bathroom located on bedroom level?: Yes What in home social supports are available to the patient? Spouse / significant other Is 18/11 care available? Yes ADVANCED DIRECTIVES, POA &/or COLST IN PLACE: Healthcare Directive: No, patient does not have advance directive for healthcare treatment Information Provided on Healthcare Directives: No Information on Healthcare Directives Requested: No DIRECTIVES FOR FINANCES: Directive For Finances: No TRANSPORTATION: Transportation: Family Transportation Additional Details: family will transport her Patient expects to be discharged to: home CULTURAL, HOLINESS and/or LANGUAGE factors affecting health care/discharge planning: Insurance Information: Medical Insurance: Yes Type of insurance: Medicare Medicare type: A, B Referred to patient financial services: No Nutrition: DISCHARGE RISK ASSESSMENT: Polypharmacy, > 7 medications;Repeat hospitalizations/ED visits Total # selected above: Score of 1 - 2: This patient is at LOW RISK for re-hospitalization Tentative plan to address the risk of re-hospitalization for those at HIGH MODERATE RISK: Refer to skilled home care services RAPT TOOL: Gender: Female Ambulation distance: 2 or more blocks (600ft) Gait device: None Will you live with someone who will care for you?: Yes RAPT Tool Score: 8 Patient expects to be discharged to: home SBIRT: SASQ (Single Alcohol Screening Question) How many times in the past year have you had 4 or more drinks in a single day?: Never How many times in the past year have you used an illegal drug or used a prescription medication fornon-medical reasons?: Never Intervention in place/initiated?: No, not indicated FUNCTIONAL STATUS: Activities patient requires assistance: None Assistive Device: None COMMUNITY RESOURCES/SUPPORTS: Primary Care Provider: JATIN House PCP Verified: Specialists: Type of Home Health Services: None DME Provider: Pharmacy: [facility] - [place], [place] - [address] [facility] [address] [facility] [address] [facility] - [place], [place] - [address] [facility] [address] Home Health: retirement referral to [facility] Other: POST HOSPITAL TRANSITION PLAN: Patient was pleasant and cooperative with CM interaction. She expressed hope to be discharged today, and anticipates learning more from her medical team later today. Her , Piotr, is staying at a nearby hotel in anticipation of transporting her home today. [employer] that she is concerned about the ride home - anticipating nausea related to motion sickness, recent procedure, and difficult roads to travel. She requests anti- nausea medication prior to ride. Patient [facility] following [facility]. Otherwise, she identifies no needs and concerns related to discharge. FANY GILLIS 06/14/2020 10:27 SAFIA [place] Usher [phone] pager #[phone] * Isaiah Ruggiero MD - 06/14/2020 0703 EST Urology Progress Note Dx: Right ureteral stricture POD # 1 s/p Cystoscopy, right ureteral catheter insertion, right retrograde pyelogram, right robotic assisted laparoscopic ureteral repair with buccal mucosal graft, right double-J ureteral stent placement 24 hour events: ??? Ashby removed, DTV 10:00 Subjective/Objective Subjective: Feels well this morning, some abdominal pain. Her mouth is sore. Bowel Function: Some flatus last night. No BMs Ambulation: Walked around her room with some mild dizziness. Denies nausea/vomiting, subjective fevers/chills, and CP/SOB. Objective: Vitals Temp: [36 ??C (96.8 ??F)-37.7 ??C (99.9 ??F)] Heart Rate: [81 BPM-125 BPM] BP: (109-166)/(59-93) SpO2: [91 %-98 %] Intake/Output Summary (Last 24 hours) at 06/14/2020 0703 Last data filed at 06/14/2020 0429 Gross per 24 hour Intake 5355.42 ml Output 2690 ml Net 2665.42 ml Exam: Gen: NAD CV: HR 80s Resp: nonlabored. Abdominal: Soft, mildly distended, appropriately TTP, incisions CDI. JAMAR Serosang. Back: no CVA tenderness : No ashby. Extremities: WWP Labs Recent Labs 06/14/20 0319 WBC 9.66 HGB 12.3 PLT 79* CREATININE 0.80 Assessment/Plan Assessment: Pt is a 49 y.o. female with Hx of DM and nephrolithiasis , currently POD #1 s/p right robotic ureteral repair with buccal graft. Recovering appropriately at this time. Plan: ??? Diet: DIET CLEAR LIQUID ??? Ashby: TOV today ??? JAMAR: JAMAR Cr at 10:00 ??? Activity as tolerated ??? Encourage IS Dispo Planning ??? HOLLAND: 1-2 days ??? Follow up as below Future Appointments Date Time Provider Department Center 07/12/2020 14:30 Hao Rodríguez MD EP5 Uro None ISAIAH RUGGIERO MD 06/14/2020 7:03 Weekdays from 7AM-5PM page [phone] with questions. For weekends and all other times, please page through PAS Associated attestation - Hao Rodríguez MD - 06/14/2020 1239 EST Attestation statement: I saw and examined the patient with the student/resident. I agree with the findings and plan of care documented in the student's/resident's note. Hao Rodríguez MD 12:39 documented in this encounter H&P Notes * Gale Chaidez PA-C - 06/13/2020 0646 EST The preoperative history and physical which was performed within 30 days of this procedure has been reviewed and the clinically appropriate elements of the physical examination have been repeated. There are no changes to the documented history and physical or if so such changes are documented below Gale Chaidez PA-C 06/13/2020 6:46 Source Note - DOCUMENT CONTROLLER, NORMA 2 - 06/02/2020 14:45 EST documented in this encounter Nursing Notes * Odin Nguyen RN - 06/13/2020 0645 EST Preop Covid DOS screening questionnaire Please document by exception (only check those that apply). Have you had any of the following symptoms recently? NO Yes Chronic ? Cough Shortness of breath or difficulty breathing Fever Chills Fatigue Muscle or body aches Severe Headache New loss of taste or smell Sore throat Congestion or runny nose Rash Nausea, vomiting, or diarrhea (rare in adults. More common in children) Were you covid tested? YES When: 06/06/20 Results: NEG If yes, have you self-isolated/quarantined since your test? YES See admission vital signs documentation for admission temperature. documented in this encounter OR Notes * OR Surgeon - Tracey De La Rosa MD - 06/13/2020 0715 EST OPERATIVE REPORT SERVICE DATE: 06/13/2020 SURGEON: Tracey De La Rosa MD ETL PROGRAMMER: None. PREOPERATIVE DIAGNOSIS: Right ureteral stricture. POSTOPERATIVE DIAGNOSIS: Right ureteral stricture. PROCEDURE: [place] of left buccal mucosal graft. ANESTHESIA: INDICATIONS: This is a 49-year-old female with a history 2 annular ureteral strictures near the UPJ, here for repair with Dr Rodrígeuz. Given the length of the distance between the 2 strictures he opted for repair with buccal graft and we will harvest this from the left cheek. NARRATIVE: The patient was admitted and brought to the operating room. After part 1 of the safety checklist was performed anesthesia was induced and she was placed in left lateral decubitus position and positioned for the robotic case by Dr Rodríguez and his staff. Her ET tube was taped up and over to the right for the buccal graft. We then placed some 3-0 silk stays at the upper and lower lip on theleft side and then marked out the salivary duct with a marking pen. We then marked out a graft in an elliptical fashion for about 4 to 5 cm and about 1.5 cm wide with a marking pen. We then infiltrated submucosally with injectable saline. We used some 1% lidocaine with epinephrine on a gauze to help with hemostasis once we began to mobilize the graft. We then put a stay stitch in what would be our graft and used a #10 blade to incise the buccal mucosa in an elliptical fashion where we marked itout. We then used tenotomy scissors to mobilize the mucosa trying to leave as much fat behind avoiding getting into the muscle layer. Again, we used a gauze with 1% lidocaine with epinephrine for hemo stasis with pressure. Once the graft was fully mobilized, it was defatted and handed off to Dr Rodríguez for the procedure. The mouth was then packed with a gauze soaked with 1% lidocaine with epinephrine for a few minutes and then the defect was closed with a 4-0 running Vicryl locking stitch. There was good hemostasis. The cheek was then packed again with a dry gauze until the end of the procedure, at which time it was removed. The patient tolerated the procedure well, suffered no complications. ESTIMATED BLOOD LOSS: Minimal. INTRAVENOUS FLUIDS: Dictated by Dr Rodríguez. URINE OUTPUT: Dictated by Dr Rodríguez. COMPLICATIONS: For the graft harvest were none. DISPOSITION: In the OR for the remainder of her procedure. Unless otherwise noted, there were no complications, no blood loss, no cultures obtained, no specimens removed, and no drains retained. Tracey De La Rosa MD / LF Confirmation: [id number] Dictation ID: [id number] cc: * OR Surgeon - Hao Rodríguez MD - 06/13/2020 0000 EST OPERATIVE REPORT SERVICE DATE: 06/13/2020 PREOPERATIVE DIAGNOSIS: Right proximal ureteral stricture. POSTOPERATIVE DIAGNOSES: Right proximal ureteral stricture. PROCEDURES: Cystoscopy, right ureteral catheter insertion, right retrograde pyelography, right ureteroscopy, and right robotic-assisted laparoscopic ureteral repair with buccal mucosal graft and stent placement. SURGEON: Hao Rodríguez MD (I was present and scrubbed for the entire case.). CO SURGEON: Tracey De La Rosa MD (will dictate the buccal mucosal harvest separately) ETL PROGRAMMER: KELLY SinBoris MD (Please note there was no charge for the PAas the resident was qualified to assist.) ANESTHESIA: General. INDICATIONS: Ms Ortiz is a 49-year-old woman, who has a history of nephrolithiasis, who unfortunately has developed a symptomatic stricture disease of her proximal right ureter. She has 2 ringlet type strictures in the proximal ureter spanning a distance of approximately 2.5 to 3 cm. Unfortunately, these have been refractory to prior endoscopic dilations with Dr Ibarra. She has had a subsequent further pain and infection and now has a stent in place. She now presents for definitive repair of her stricture. NARRATIVE: The patient was taken to the operating room and placed in lithotomy position after induction of general anesthesia. Her perineum and genitals were prepped and draped in usual sterile fashion. A 22-Peruvian cystoscope and sheath was introduced into the bladder via the urethra. Bladder was examined in its entirety, all mucosa was visualized and all appeared normal. Her right ureteral orifice was identified and cannulated with 5-Peruvian open-ended ureteral catheter, which was passed up to the level of the mid ureter. Through this, a retrograde pyelogram was performed, which showed the ureter to be of normal course and caliber up to the level of the patient's known 2 strictures. The dist ance of these strictures was measured at 2.47 cm from the top of the upper one to the bottom of thelower one. It appeared to be 2 separate annular-appearing ureteral strictures within the proximal ureter. The flexible ureteroscope was passed up the level of the proximal ureter and through them, and it was clear that they were quite easily identifiable in their location just below the level of the UPJ. A 5-Peruvian open-ended ureteral catheter was left in place for retrograde injection of ICG later in the case. The patient was then repositioned into the right flank up position with the bed minimally flexed. She was padded appropriately for the positioning and was secured to the bed. Her right flank and abdomen were prepped and draped in usual sterile fashion. An approximately 8 mm incision was made in thelateral border of the rectus at the level of umbilicus. Through this, Veress needle access was obtained into the peritoneal cavity as confirmed via drop test prior to insufflation of the abdomen to alevel 20 cm water. This level of pneumoperitoneum was maintained until all ports had been placed, at which point it was decreased to 15 cm water for the remainder of the case. Additional 8 mm ports were placed at the lateral border of the rectus, midway between pubis and umbilicus, as well as at the costal margin and in the anterior axillary line midway between xiphoid and umbilicus. An 8 mm AirSeal data assistant port was placed midway between xiphoid and umbilicus and a 5 mm subxiphoid port was placed for fixed liver retraction, which was performed with the FastClamp. This resulted in excellent exposure of the right renal fossa. At this point, the robotic system was docked. Dissection was begun by mobilizing the ascending colon off the anteromedial aspect of the kidney and lower pole. Duodenum was carefully kocherized. While retracting the lower pole of the kidney, the ureter and gonadal vein were identified. The ureter was dissected for a length of several centimeters from where it entered the renal pelvis to where it extended well below the lower pole of the kidney. In this region, after injection of ICG through the ureteral catheter, the areas of stricture could quite clearly be se en. This area was opened on the anterior surface through both strictures, where approximately 1 cm of normal ureter proximal and distal to the strictures for a total opening length of approximately 4to 4.5 cm. It was clear that even with the mobilization of the ureter that we had done, while therewas some redundancy, excising the entire area of scar tissue to perform an augmented anastomosis fol lowing excision, would likely be under tension. As such, the decision was made to place a buccal mucosal graft anteriorly as an onlay graft. This was harvested by Dr De La Rosa to be dictated separately. After appropriate preparation of the graft, it was placed into the abdominal cavity and tailored to the appropriate size. A 7-Peruvian 26 cm stent was then placed over a 0.038 Glidewire with the distal curl seated well in the bladder and proximal curls passed up into the renal pelvis over a wire placed through the side port. Over this, the buccal mucosal patch was sewn in a partially interrupted and partially running fashion with 4-0 Vicryl suture. This resulted in excellent appearance of a widely patent ureter. Following this, the perinephric fat was then reapproximated over the repair to provide a nice buttress to the graft and this was secured in place with a 2-0 Vicryl suture. A #10 Juan-Hudson drain was placed into the right upper quadrant emanating from the lowest-most port site and was secured to the skin with 2-0 silk suture. All ports were then removed under direct vision after assuring excellent hemostasis. All ports were then closed with deep dermal layer with 3-0 Vicryl suture and were dressed with Dermabond. DISPOSITION: The patient was awakened from anesthesia and taken to recovery in stable condition postoperatively. ESTIMATED BLOOD LOSS: 50 mL COMPLICATIONS: None. PLAN: Will be for cystoscopic stent removal in 1 month's time in the office. Unless otherwise noted, there were no complications, no blood loss, no cultures obtained, no specimens removed, and no drains retained. Hao Rodríguez MD / / Confirmation: [id number] Dictation ID: [id number] cc: documented in this encounter Miscellaneous Notes * Plan of Care - Ranjeet Evangelista RN - 06/14/2020 1457 EST Discharge Note D - Patient ordered for discharge today. A - Patient given prescriptions, medication information sheets and After Visit Summary. Medication list, follow up appointments and care instructions reviewed with patient. IVs and ID band removed. Called report to . R - Patient questions reviewed and addressed prior to discharge. Patient reported pain and was medicated. Patient left the unit in a wheelchair in stable condition. No distress noted. 06/14/2020 14:58 RANJEET EVANGELISTA RN Problem: Daily Care Plan Goals Goal: Care Plan Documentation 06/14/2020 1457 by Ranjeet Evangelista RN Outcome: Ongoing at Discharge 06/14/2020 1457 by Ranjeet Evangelista RN Outcome: Ongoing Problem: High Fall Risk: Goal: Patient will Remain Free of Falls due to Med. Side Effects 06/14/2020 1457 by Ranjeet Evangelista RN Outcome: Ongoing at Discharge 06/14/2020 1457 by Ranjeet Evangelista RN Outcome: Ongoing Problem: High Fall Risk: Goal: Patient Will Remain Free from Fall-Related Injury 06/14/2020 1457 by Ranjeet Evangelista RN Outcome: Ongoing at Discharge 06/14/2020 1457 by Ranjeet Evangelista RN Outcome: Ongoing Problem: High Fall Risk: Goal: Patient will Remain Free of Falls due to Altered Elimination 06/14/2020 1457 by Ranjeet Evangelista RN Outcome: Ongoing at Discharge 06/14/2020 1457 by Ranjeet Evangelista RN Outcome: Ongoing Problem: High Fall Risk: Goal: Patient will Remain Free of Falls due to Dizziness/Vertigo 06/14/2020 1457 by Ranjeet Evangelista RN Outcome: Ongoing at Discharge 06/14/2020 1457 by Ranjeet Evangelista RN Outcome: Ongoing Problem: Sensory: Goal: Ability to compensate for vision loss will be supported 06/14/2020 145 by Ranjeet Evangelista RN Outcome: Ongoing at Discharge 06/14/2020 1457 by Ranjeet Evangelista RN Outcome: Ongoing * Plan of Care - Betty Valentin - 06/14/2020 1141 EST Problem: Daily Care Plan Goals Goal: Care Plan Documentation Flowsheets Taken 06/14/2020 1141 Area of Focus: Mobility Taken 06/14/2020 0757 Goal This Shift: pt will get OOB to the chair Note: Data: I assumed care of pt at 0700. Pt is POD #1 s/p cystoscopy, right ureteral catheter insertion, right retrograde pyelogram, right robotic assisted laparoscopic ureteral repair with buccal mucosal graft, right double-J ureteral stent placement. Pt is able to ambulate w/ 1 assist OOB. Pt voided 400 ml at 1045, PRV 185 ml. Rated pain 3/10 at RLQ. Action: I provided a bed bath. Pt received meds for pain as well as scheduled meds. Pt is ambulate in the room, just needs set up. I encouraged pt to get OOB to the recliner. Response: Pt ambulated OOB to the recliner, and tolerated ambulation well. Pt is not expressing anyneeds at the moment. Pt is sitting in the recliner watching TV. * Plan of Care - Jun Mcintyre RN - 06/14/2020 0253 EST Problem: Daily Care Plan Goals Goal: Care Plan Documentation Outcome: Met This Shift Flowsheets (Taken 06/13/20202002) Area of Focus: Communication Goal This Shift: Pt will communiucate needs this shift Note: Data: Patient is POD#1 s/p cystoscopy, right ureteral catheter insertion, right retrograde pyelogram, right robotic assisted laparoscopic ureteral repair with buccal mucosal graft, right double-J ureteral stent placement. A&Ox3, VSS, sating 95% on 3L NC. Ambulates 1 assist OOB. JAMAR to suction draining serosanguinous fluid. Ashby in place draining clear, yellow urine. Lap sites C/D/I. Action: Rounding hourly for patient safety and to provide time to communicate needs. Administered medications per orders (see MAR). Monitored I/O's. Clustered care and reduced environmental stimuli to promote rest. Response: Patient able to communicate needs this shift. Patient currently resting comfortably in bed, call light within reach, bed placed in low position and table at bedside. Room is free of clutter. No needs communicated at this time. JUN MCINTYRE RN 06/14/2020 2:37 * Plan of Care - Mere Talley RN - 06/13/2020 1962 EST Admission Note D - This is a(n) 49 y.o. female who is being transfered from PACU This is post-op day 0 for the patient. Patient is status-post cystoscopy, right ureteral catheter insertion, right retrograde pyelogram, right robotic assisted laparoscopic ureteral repair with buccal mucosal graft, right double-J ureteral stent placement A - Vital signs taken. Patient oriented to unit and room. Call light and bed use reviewed. Call light within reach, bed placed in low position and table at bedside. Room is free of clutter. Ashby draining R - Continue to assess and monitor patient. 06/13/2020 17:56 MERE TALLEY RN * Brief Op Note - Gale Chaidez PA-C - 06/13/2020 1333 EST [facility] Urologic Surgery Brief Post-Op Note Date of Surgery: 06/13/2020 Surgeon: Hao Rodríguez MD, Tracey De La Rosa MD Assistants: Gale Chaidez PA-C, Boris Nguyen MD Pre-Op Diagnosis: Right ureteral stricture Post-Op Diagnosis: Right ureteral stricture Procedure(s): Cystoscopy, right ureteral catheter insertion, right retrograde pyelogram, right robotic assisted laparoscopic ureteral repair with buccal mucosal graft, right double-J ureteral stent placement Findings: 2 right annular appearing ureteral strictures in proximal ureter. See or surgeon dictation for full operative details. Anesthesia Type: General and Local to the incisions. I/O ??? Fluids: 2700 mL for fluid replacement. ??? Urine Output: See anesthesia record. ??? Estimated Blood Loss: 50 cc Specimens/Cultures: None Drains/Packs: 10 mm Juan-Hudson drain right lower quadrant. Ashby catheter. Stents: Right 7 Peruvian by 26 cm, no pullout string. Complications: None Wound Classification: Class II/Clean-contaminated Disposition/Condition: PACU in Stable condition. Post-op plan ??? PACU then floor ??? Pain: Scheduled Tylenol, IV and p.o. Dilaudid PRN ??? Abx: Cefazolin ??? Discontinue Ashby catheter tomorrow 06/14/2020 at 0400 ??? JAMAR fluid creatinine 06/14/2020 at 1000 ??? HOLLAND 1 to 2 days ??? Magic mouth wash -swish and swallow if needed ??? Patient to avoid crunchy or spicy foods until mouth well-healed ??? Follow up Dr. Rodríguez 4 weeks for postop visit and right ureteral stent removal Gale Chaidez PA-C 06/13/2020 13:33 documented in this encounter Plan of Treatment Not on file documented as of this encounter Procedures Procedure Name Priority Date/Time Associated Diagnosis Comments IMPLANT RECORD - SCANNED 08/29/2020 8:03 EDT IMPLANT RECORD - SCANNED 08/28/2020 15:40 EDT IMPLANT RECORD - SCANNED 06/19/2020 7:29 EST POCT GLUCOSE, INTERFACED Routine 06/14/2020 12:29 EST CREATININE, FLUID Routine 06/14/2020 10: 58 EST POCT GLUCOSE, INTERFACED Routine 06/14/2020 5:44 EST COMPLETE BLOOD COUNT Routine 06/14/2020 3:19 EST BUN Routine 06/14/2020 3:19 EST GLUCOSE, SERUM Routine 06/14/2020 3:19 EST CREATININE Routine 06/14/2020 3:19 EST ELECTROLYTES Routine 06/14/2020 3:19 EST POCT GLUCOSE, INTERFACED Routine 06/14/2020 1:16 EST POCT GLUCOSE, INTERFACED Routine 06/13/2020 18:17 EST NEBULIZER TX INTERMITTENT Routine 06/13/2020 15:59 EST POCT GLUCOSE, INTERFACED Routine 06/13/2020 13:33 EST XR ABDOMEN 1 VIEW Routine 06/13/2020 12: 48 EST FL C-ARM RETROGRADE Routine 06/13/2020 8 :33 EST CYSTOSCOPY, WITH URETERAL CATHETER INSERTION 06/13/2020 7:21 EST Ureteral stricture APPLICATION, GRAFT, SKIN, FULL-THICKNESS, TO FACE, NECK, AXILLA, GENITALIA, HAND, OR FOOT, 20 SQ CM OR LESS 06/13/2020 7:21 EST Ureteral stricture URETERONEOCYSTOSTOMY, ROBOT-ASSISTED, LAPAROSCOPIC 06/13/2020 7:21 EST Ureteral stricture TYPE AND SCREEN Routine 06/13/2020 6:51 EST POCT GLUCOSE, INTERFACED Routine 06/13/2020 6:50 EST ECG REPORT - SCANNED 06/02/2020 14:45 EST documented in this encounter Results * IMPLANT RECORD - SCANNED (08/29/2020 8:03 EDT) 08/29/2020 8:03 EDT Scan 2 Systems Test Analyst PROCEDURE/MINOR ELSA GICAL ORDERABLES * IMPLANT RECORD - SCANNED (08/28/2020 15:40 EDT) 08/28/2020 15:4 0 EDT Scan 2 Systems Test Analyst PROCEDURE/MINOR ELSA GICAL ORDERABLES * IMPLANT RECORD - SCANNED (06/19/2020 7:29 EST) 06/19/2020 7:29 EST Scan 2 Systems Test Analyst PROCEDURE/MINOR ELSA GICAL ORDERABLES * (ABNORMAL) POCT GLUCOSE, INTERFACED (06/14/2020 12:29 EST) Glucose, POC 107(H) 70 - 100 mg/dL 06/14/2020 12:30 EST [facility] irrigation equipment installer ID [id number] 06/14/2020 12:30 EST [facility] HN LAB POC COMMENT (GLUCOSE) Test Performed by Nursing Services 06/14/2020 12:30 EST [facility] Blood CAPILLARY BLOOD / Unknown 06/14/2020 12:29 EST 06/14/2020 12:30 EST Gale Chaidez PA-C POINT OF CARE T EST ORDERABLES [facility] [address] [place] [address] * CREATININE, FLUID (06/14/2020 10:58 EST) Creatinine, Fluid 0.82 See Note mg/dL 06/14/2020 12:25 EST [facility] Comment: Peritoneal fluid. Reference range unavailable. Clinical correlation required. This Fluid Creatinine assay was developed and its performance characteristics determined by [facility]. ??It has not been cleared or approved by the [place] Food and Drug Administration. Fluid PERITONEAL FLUID / Unknown 06/14/2020 10:58 EST 06/14/2020 11:05 EST Gale Chaidez PA-C GEN LAB UNIT CO LLECT ORDERABLES Performing Organization Address City/[facility] Co de Phone Number [facility] [address] [place] [address] * POCT GLUCOSE, INTERFACED (06/14/2020 5:44 EST) Glucose, POC 100 70 - 100 mg/dL 06/14/2020 5:45 EST [facility] irrigation equipment installer ID [id number] 06/14/2020 5:45 EST [facility] HN LAB POC COMMENT (GLUCOSE) Test Performed by Nursing Services 06/14/2020 5:45 EST [facility] Blood CAPILLARY BLOOD / Unknown 06/14/2020 5:44 EST 06/14/2020 5:45 EST Gale Chaidez PA-C POINT OF CARE T EST ORDERABLES Performing Organization Address City/[facility]/ZIP Co de Phone Number [facility] [address] [place] [address] * (ABNORMAL) GLUCOSE, SERUM (06/14/2020 3:19 EST) Glucose 114(H) 70 - 100 mg/dL 06/14/2020 4:10 EST [facility] Blood VENOUS BLOOD / Unknown Venipuncture / Unknown 06/14/2020 3:19 EST 06/14/2020 3:41 EST Gale Chaidez PA-C CHEMISTRY & BLO OD GAS ORDERABLES Performing Organization Address [facility] Co de Phone Number [facility] [address] [place] [address] * CREATININE (06/14/2020 3:19 EST) Creatinine 0.80 0.52 - 1.04 mg/dL 06/14/2020 4:10 [facility] eGFR 87 >60 mL/min/1.7 3m2 06/14/2020 4:10 [facility] Comment:eGFR calculated kimberly grossman CKD-EPI equation for non- Americans. Multiply eGFR by 1.16 for patients. Blood VENOUS BLOOD / Unknown Venipuncture / Unknown 06/14/2020 3:19 EST 06/14/2020 3:41 EST Gale Chaidez PA-C CHEMISTRY & BLO OD GAS ORDERABLES Performing Organization Address [facility] Co de Phone Number [facility] [address] [place] [address] * (ABNORMAL) BUN (06/14/2020 3:19 EST) Pathologist [facility] BUN 9(L) 10 - 26 mg/dL 06/14/2020 4:10 [facility] Blood VENOUS BLOOD / Unknown Venipuncture / Unknown 06/14/2020 3:19 EST 06/14/2020 3:41 EST Gale MENDOZA-C CHEMISTRY & BLO OD GAS ORDERABLES Performing Organization Address [facility] Co de Phone Number [facility] [address] [place] [address] * ELECTROLYTES (06/14/2020 3:19 EST) Sodium 136 136 - 145 mEq/L 06/14/2020 4:10 [facility] Potassium 3.9 3.5 - 5.0 mEq/L 06/14/2020 4:10 [facility] Chloride 100 96 - 110 mEq/L 06/14/2020 4:10 [facility] CO2 Total 28 22 - 32 mEq/L 06/14/2020 4:10 [facility] Blood VENOUS BLOOD / Unknown Venipuncture / Unknown 06/14/2020 3:19 EST 06/14/2020 3:41 EST Gale Speedy Kaylynn PA-C CHEMISTRY & BLO OD GAS ORDERABLES [facility] [address] [place] [address] * (ABNORMAL) COMPLETE BLOOD COUNT (06/14/2020 3:19 EST) WBC 9.66 4.00 - 12.40 K/cmm 06/14/2020 4:09 [facility] RBC 4.13 3.86 - 5.04 M/cmm 06/14/2020 4:09 [facility] Hemoglobin 12.3 11.6 - 15.2 gm/dL 06/14/2020 4:09 [facility] HCT 36.1 34.9 - 44.4 % 06/14/2020 4:09 [facility] MCV 87 81 - 98 fl 06/14/2020 4:09 [facility] MCH 29.8 26.7 - 33.3 pg 06/14/2020 4:09 [facility] MCHC 34.1 32.1 - 35.9 gm/dL 06/14/2020 4:09 [facility] RDW-CV 14.0 <14.7 % 06/14/2020 4:09 [facility] RDW-SD 44.4 <50.4 fl 06/14/2020 4:09 [facility] PLT 79(L) 141 - 377 K/cmm 06/14/2020 4:09 [facility] MPV 8.6(L) 9.5 - 12.7 fl 06/14/2020 4:09 [facility] Blood VENOUS BLOOD / Unknown Venipuncture / Unknown 06/14/2020 3:19 EST 06/14/2020 3:40 EST Gale Chaidez PA-C HEMATOLOGY & PF 4 ORDERABLES Performing Organization Address City/[facility]/ZIP Co de Phone Number [facility] [address] [place] [address] * (ABNORMAL) POCT GLUCOSE, INTERFACED (06/14/2020 1:16 EST) Glucose, POC 117(H) 70 - 100 mg/dL 06/14/2020 1:17 EST [facility] irrigation equipment installer ID [id number] 06/14/2020 1:17 EST [facility] HN LAB POC COMMENT (GLUCOSE) Test Performed by Nursing Services 06/14/2020 1:17 EST [facility] Blood CAPILLARY BLOOD / Unknown 06/14/2020 1:16 EST 06/14/2020 1:17 EST Gale Chaidez PA-C POINT OF CARE T EST ORDERABLES Performing Organization Address City/[facility]/ZIP Co de Phone Number [facility] [address] [place] [address] * (ABNORMAL) POCT GLUCOSE, INTERFACED (06/13/2020 18:17 EST) Glucose, POC 119(H) 70 - 100 mg/dL 06/14/2020 0:27 EST [facility] irrigation equipment installer ID [id number] 06/14/2020 0:27 EST [facility] HN LAB POC COMMENT (GLUCOSE) Test Performed by Nursing Services 06/14/2020 0:27 EST [facility] Blood CAPILLARY BLOOD / Unknown 06/13/2020 18:17 EST 06/14/2020 0:27 EST Gale BeauchampPIE Software PA-C POINT OF CARE T EST ORDERABLES Performing Organization Address City/[facility]/ZIP Co de Phone Number [facility] [address] [place] [address] * (ABNORMAL) POCT GLUCOSE, INTERFACED (06/13/2020 13:33 EST) Glucose, POC 122(H) 70 - 100 mg/dL 06/13/2020 14:39 EST [facility] irrigation equipment installer ID [id number] 06/13/2020 14:39 EST [facility] HN LAB POC COMMENT (GLUCOSE) Test Performed by Nursing Services 06/13/2020 14:39 EST [facility] Blood CAPILLARY BLOOD / Unknown 06/13/2020 13:33 EST 06/13/2020 14:39 EST Yifan Cartagena MD POINT OF CARE T EST ORDERABLES [facility] [address] [place] [address] * XR ABDOMEN 1 VIEW (06/13/2020 12:48 EST) Narrative 06/15/2020 10:11 EST This is a non-reportable exam. Hao Rodríguez MD IMG DIAGNOSTIC IM AGING ORDERABLES * FL C-ARM RETROGRADE (06/13/2020 8:33 EST) Narrative 06/13/2020 8:34 EST This is a non-reportable exam. Hao Rodríguez MD IMG OTHER IMAGING ORDERABLES * TYPE AND SCREEN (06/13/2020 6:51 EST) ABO A 06/13/2020 7:39 EST [facility] Rh Factor Positive 06/13/2020 7:39 EST [facility] Antibody Screen Negative 06/13/2020 7:39 EST [facility] Specimen Expires: 06/16/2020 @ 23:59 06/13/2020 7:39 EST [facility] Blood VENOUS BLOOD / Unknown Venipuncture / Unknown 06/13/2020 6:51 EST 06/13/2020 7:07 EST Arnav Zepeda DO BLOOD BANK TESTS [facility] [address] [place] [address] * (ABNORMAL) POCT GLUCOSE, INTERFACED (06/13/2020 6:50 EST) Glucose, POC 113(H) 70 - 100 mg/dL 06/13/2020 6:53 EST [facility] irrigation equipment installer ID [id number] 06/13/2020 6:53 EST [facility] HN LAB POC COMMENT (GLUCOSE) Test Performed by Nursing Services 06/13/2020 6:53 EST [facility] Blood CAPILLARY BLOOD / Unknown 06/13/2020 6:50 EST 06/13/2020 6:53 EST Hao Rodríguez MD POINT OF CARE [place] T ORDERABLES Performing Organization Address [facility] Co de Phone Number [facility] [address] [place] [address] * ECG REPORT - SCANNED (06/02/2020 14:45 EST) 06/02/2020 14:4 5 EST Scan 2 Systems Test Analyst PROCEDURE/MINOR ELSA GICAL ORDERABLES documented in this encounter Visit Diagnoses Diagnosis Ureteral stricture- Primary Stricture or kinking of ureter Nephrolithiasis Calculus of kidney Ureteral stricture, right Stricture or kinking of ureter Ureteral stricture Stricture or kinking of ureter Ureteral stricture Stricture or kinking of ureter documented in this encounter Admitting Diagnoses Diagnosis Ureteral stricture Stricture or kinking of ureter documented in this encounter Administered Medications Inactive Administered Medications - up to 3 most recent administrations Medication Order MAR Action Action Date Dose Rate Site acetaminophen (TYLENOL) tablet 1,000 mg 1,000 mg, oral, EVERY 6 HOURS, First dose on Fri06/13/20 at 1800, Until Discontinued, Routine Given 06/14/2020 13:40 EST 1,000 mg Given 06/14/2020 6:31 EST 1,000 mg Given 06/14/2020 1:19 EST 1,000 mg albuterol (ACCUNEB) 2.5 mg /3 mL (0.083 %) nebulizer solution 1 dose, Starting on Fri06/13/20 at 1611, Until Fri06/14/20 at 1732 albuterol (ACCUNEB) nebulizer solution 2.5 mg 2.5 mg, nebulization, NOW X1, 1 dose, On Fri06/13/20 at 1630, Routine, Recovery (only) Given 06/13/2020 16:11 EST 2.5 mg amitriptyline (ELAVIL) tablet 25 mg 25 mg, oral, AT BEDTIME, First dose on Fri06/13/20 at 2100, Until Discontinued, Routine Given 06/13/2020 21:33 EST 2 5 mg bupivacaine (PF) (MARCAINE) 0.5% injection As needed, Starting on Fri06/13/20 at 1221, Until Fri06/13/20 at 1224, Routine, Intraprocedure Given 06/13/2020 12:21 EST 15 mL ceFAZolin in dextrose (iso-os) piggyback 2 g/100 mL (ANCEF) 2 gram/100 mL IVPB 1 dose, Starting on Fri06/13/20 at 1630, Until Fri06/14/20 at 1732 ceFAZolin in dextrose (iso-os) piggyback 2 g/100 mL 2,000 mg, intravenous, Administer over 30 Minutes, EVERY 8 HOURS, 2 doses, First dose on Fri06/13/20 at 1645, Last dose on Fri06/14/20 at 0000, Type of Therapy: Prophylaxis, Suspected Indication (Select all that apply): Surgical prophylaxis, ID Consult: No, Routine Given 06/13/2020 23:35 EST 2,000 mg Given 06/13/2020 16:32 EST 2,000 mg cellulose, oxidized 2 x 14 (SURGICEL) pad pad As needed, Starting on Fri06/13/20 at 1051, Until Fri06/13/20 at 1051, Intraprocedure Given 06/13/2020 10:51 EST 1 Ea ch diphenhydrAMINE (BENADRYL) injection 12.5 mg 12.5 mg, intravenous, PRN, 1 dose, Starting on Fri06/13/20 at 1213, Until Fri06/13/20 at 1547, nausea, Routine, Recovery (only) Given 06/13/2020 15:47 EST 12.5 mg docusate sodium (COLACE) capsule 100 mg 100 mg, oral, 2 TIMES DAILY, First dose on Fri06/13/20 at 2100, Until Discontinued, Routine Given 06/14/2020 8:33 EST 10 0 mg Given 06/13/2020 20:21 EST 100 mg gabapentin (NEURONTIN) capsule 600 mg 600 mg, oral, 3 TIMES DAILY, First dose (after last modification) on Fri06/13/20 at 2100, Until Discontinued, Routine Given 06/14/2020 13:40 EST 600 mg Given 06/14/2020 8:34 EST 600 mg Given 06/13/2020 20:21 EST 600 mg heparin injection 5,000 Units 5,000 Units, subcutaneous, PRE-OP ONCE, 1 dose, On Fri06/13/20 at 0645, Routine, Preprocedure Given 06/13/2020 7:07 EST 5,000 Units Left Lower Abdomen heparin injection 5,000 Units 5,000 Units, subcutaneous, EVERY 8 HOURS, First dose on Fri06/13/20 at 1800, Until Discontinued, Routine Given 06/14/2020 8:34 EST 5,000 Units Given 06/14/2020 1:19 EST 5,000 Units Given 06/13/2020 18:13 EST 5,000 Units HYDROmorphone (DILAUDID) tablet 2-4 mg 2-4 mg, oral, EVERY 4 HOURS PRN, Starting on Fri06/13/20 at 1737, Until Fri06/14/20 at 1732, Pain, Routine Given 06/14/2020 14:22 EST 4 mg ibuprofen (MOTRIN) tablet 400 mg 400 mg, oral, EVERY 6 HOURS PRN, Starting on Fri06/13/20 at 0700, Until Fri06/14/20 at 0659, Pain, Routine Given 06/13/2020 20:21 EST 400 mg indocyanine green (IC-GREEN) injection As needed, Starting on Fri06/13/20 at 1059, Until Fri06/13/20 at 1124, Routine, Intraprocedure Given 06/13/2020 10:59 EST 25 mg iohexoL (OMNIPAQUE 300) injection As needed, Starting on Fri06/13/20 at 0818, Until Fri06/13/20 at 0821, Routine, Intraprocedure Given 06/13/2020 8:18 EST 50 mL lactated ringers (LR) infusion 30 mL/hr, intravenous, CONTINUOUS, Starting on Fri06/13/20 at 0645, Until Fri06/13/20 at 1737, Routine, Preprocedure New Bag 06/13/2020 9:30 EST New Bag 06/13/2020 7:13 EST New Bag 06/13/2020 7:01 EST 30 mL/hr 30 mL/hr lactated ringers (LR) infusion at 100 mL/hr, intravenous, PACU CONTINUOUS, Starting on Fri06/13/20 at 1230, Until Fri06/13/20 at 1732, Routine, Recovery (only) New Bag 06/13/2020 14:00 EST 100 mL/hr lactated ringers (LR) infusion 125 mL/hr, intravenous, CONTINUOUS, Starting on Fri06/13/20 at 1800, Until Fri06/14/20 at 1732, Routine New Bag 06/14/2020 8:55 EST 125 mL/hr 125 mL/hr Rate Documented 06/14/2020 4:29 EST 125 mL/hr 125 mL/hr Rate Documented 06/14/2020 2:00 EST 125 mL/hr 125 mL/hr lidocaine-EPINEPHrine 1 %-1:100,000 injection As needed, Starting on Fri06/13/20 at 1057, Until Fri06/13/20 at 1057, Routine, Intraprocedure Given 06/13/2020 10:57 EST 10 mL Other metoprolol TARtrate (LOPRESSOR) tablet 75 mg 75 mg, oral, 2 TIMES DAILY, First dose on Fri06/13/20 at 2100, Until Discontinued, Routine Given 06/14/2020 8:34 EST 75 mg Given 06/13/2020 20:21 EST 75 mg ondansetron (PF) (ZOFRAN) injection 4 mg 4 mg, intravenous, PRN, 1 dose, Starting on Fri06/13/20 at 1213, Until Fri06/13/20 at 1535, Nausea, Vomiting, Routine, Recovery (only) Given 06/13/2020 15:35 EST 4 m g ondansetron (PF) (ZOFRAN) injection 4 mg 4 mg, intravenous, EVERY 4 HOURS PRN, Starting on Fri06/13/20 at 1737, Until Fri06/14/20 at 1732, Nausea, Routine ondansetron (ZOFRAN-ODT) disintegrating tablet 4 mg 4 mg, oral, EVERY 4 HOURS PRN, Starting on Fri06/13/20 at 1737, Until Fri06/14/20 at 1732, Nausea, Routine Given 06/14/2020 14:22 EST 4 mg pantoprazole (PROTONIX) tablet 40 mg 40 mg, oral, DAILY, First dose on Fri06/13/20 at 1645, Until Discontinued, Routine Given 06/14/2020 8:34 EST 40 mg Given 06/13/2020 16:58 EST 40 mg documented in this encounter Discontinued Medications Medication Sig Discontinue Reason Start Date End Da te diclofenac (VOLTAREN) 50 mg EC tablet Take 1 Tab by mouth 2 times daily as needed for Pain. 03/17/2018 06/13/2020 diclofenac (VOLTAREN) 50 mg EC tablet Take 1 Tab by mouth 2 times daily. 03/24/2018 06/13/2020 acetaminophen (TYLENOL) 325 mg tablet Take 2 Tabs by mouth every 4 hours as needed for Pain. Reorder 03/06/2016 06/14/2020 documented as of this encounter Active and Recently Administered Medications Times are shown in EST. Scheduled Medication Order 06/12/2020 06/13/2020 06/14/2020 acetaminophen (TYLENOL) tablet 1,000 mg 1,000 mg, oral, EVERY 6 HOURS, First dose on Fri06/13/20 at 1800, Until Discontinued, Routine 1758 (Hold - Provider: Mere Talley RN - Reason: Nausea/Vomiting) 0119 (Given - Provider: Abimbola Mota)0631 (Given - Provider: Tosha French RN)1340 (Given - Provider: Ranjeet Evangelista RN) albuterol (ACCUNEB) nebulizer solution 2.5 mg (COMPLETED) 2.5 mg, nebulization, NOW X1, 1 dose, On Fri06/13/20 at 1630, Routine, Recovery (only) 1611 (Given - Provider: Shawnee Yadav RN) amitriptyline (ELAVIL) tablet 25 mg 25 mg, oral, AT BEDTIME, First dose on Fri06/13/20 at 2100, Until Discontinued, Routine 2133 (Given - Provider: Jun Mcintyre RN) ceFAZolin (ANCEF) syringe 3 g (COMPLETED) 3 g, intravenous, Administer over 10 Minutes, PRE-OP ONCE, 1 dose, On Fri06/13/20 at 0630, Type of Therapy: Prophylaxis, Suspected Indication (Select all that apply): Surgical prophylaxis, Routine, Preprocedure 0759 (Given - Provider: LEMUEL Castro)1156 (Given - Provider: LEMUEL Castro) ceFAZolin in dextrose (iso-os) piggyback 2 g/100 mL (COMPLETED) 2,000 mg, intravenous, Administer over 30 Minutes, EVERY 8 HOURS, 2 doses, First dose on Fri06/13/20 at 1645, Last dose on Fri06/14/20 at 0000, Type of Therapy: Prophylaxis, Suspected Indication (Select all that apply): Surgical prophylaxis, ID Consult: No, Routine 1632 (Given - Provider: Shawnee Yadav RN)2335 (Given - Provider: Abimbola Mota) docusate sodium (COLACE) capsule 100 mg 100 mg, oral, 2 TIMES DAILY, First dose on Fri06/13/20 at 2100, Until Discontinued, Routine 2020 (Given - Provider: Jun Mcintyre RN) 0833 (Given - Provider: Ranjeet Evangelista, ALEXA) gabapentin (NEURONTIN) capsule 600 mg 600 mg, oral, 3 TIMES DAILY, First dose (after last modification) on Fri06/13/20 at 2100, Until Discontinued, Routine 2020 (Given - Provider: Jun Mcintyre RN) 0834 (Given - Provider: Ranjeet Evangelista, ALEXA)1340 (Given - Provider: Ranjeet Evangelista, ALEXA) heparin injection 5,000 Units (COMPLETED) 5,000 Units, subcutaneous, PRE-OP ONCE, 1 dose, On Fri06/13/20 at 0645, Routine, Preprocedure 0707 (Given - Provider: Odin Nguyen RN) heparin injection 5,000 Units 5,000 Units, subcutaneous, EVERY 8 HOURS, First dose on Fri06/13/20 at 1800, Until Discontinued, Routine 1813 (Given - Provider: Mere Talley RN) 0119 (Given - Provider: Abimbola Mota)0834 (Given - Provider: Ranjeet Evangelista, ALEXA)1600 (Canceled Entry - Provider: Batch Job User Admin - Comment: Automatically canceled at discontinue of medication order) insulin aspart U-100 (NOVOLOG FLEXPEN) injection subcutaneous, EVERY 6 HOURS, First dose on Fri06/13/20 at 1800, Until Discontinued, Routine, Indications: SUPPLEMENTAL INSULIN 1817 (Not Given - Provider: Mere Talley RN - Reason: Order parameters not met) 0119 (Not Given - Provider: Abimbola Mota - Reason: Order parameters not met)0552 (Not Given - Provider: Tosha French RN - Reason: Order parameters not met - Comment: FS 100)1309 (Not Given - Provider: Ranjeet Evangelista RN - Reason: Order parameters not met) metoprolol TARtrate (LOPRESSOR) tablet 75 mg 75 mg, oral, 2 TIMES DAILY, First dose on Fri06/13/20 at 2100, Until Discontinued, Routine 2020 (Given - Provider: Jun Mcintyre RN) 0834 (Given - Provider: Ranjeet Evangelista, ALEXA) pantoprazole (PROTONIX) tablet 40 mg 40 mg, oral, DAILY, First dose on Fri06/13/20 at 1645, Until Discontinued, Routine 1658 (Given - Provider: Shawnee Yadav RN) 0834 (Given - Provider: Ranjeet Evangelista, ALEXA) Continuous Medication Order 06/12/2020 06/13/2020 06/14/2020 lactated ringers (LR) infusion (CANCELED) 30 mL/hr, intravenous, CONTINUOUS, Starting on Fri06/13/20 at 0645, Until Fri06/13/20 at 1737, Routine, Preprocedure 0701 (New Bag - Provider: Odin Nguyen RN)0713 (New Bag - Provider: LEMUEL Castro)0930 (New Bag - Provider: LEMUEL Castro)1228 (Anesthesia Volume Adjustment - Provider: LEMUEL Castro) lactated ringers (LR) infusion (CANCELED) at 100 mL/hr, intravenous, PACU CONTINUOUS, Starting on Fri06/13/20 at 1230, Until Fri06/13/20 at 1732, Routine, Recovery (only) 1400 (New Bag - Provider: Shawnee Yadav, RN)2134 (Completed - Provider: Jun Mcintyre, ALEXA - Comment: Pt on floor orders for LR dose) lactated ringers (LR) infusion 125 mL/hr, intravenous, CONTINUOUS, Starting on Fri06/13/20 at 1800, Until Fri06/14/20 at 1732, Routine 1812 (New Bag - Provider: Mere Talley, RN)2002 (Rate Documented - Provider: Jun Mcintyre, RN)231 (New Bag - Provider: Abimbola Mota) 0200 (Rate Documented - Provider: Jun Mcintyre, RN)0429 (Rate Documented - Provider: Tosha French, RN)0855 (New Bag - Provider: Ranjeet Evangelista RN) PRN Medication Order 06/12/2020 06/13/2020 06/14/2020 bupivacaine (PF) (MARCAINE) 0.5% injection (CANCELED) As needed, Starting on Fri06/13/20 at 1221, Until Fri06/13/20 at 1224, Routine, Intraprocedure 1221 (Given - Provider: Tracey De La Rosa MD - Comment: trocar sites) cellulose, oxidized 2 x 14 (SURGICEL) pad pad (CANCELED) As needed, Starting on Fri06/13/20 at 1051, Until Fri06/13/20 at 1051, Intraprocedure 1051 (Given - Provider: Hao Rodríguez MD - Comment: ureter right) dextrose 50 % solution 12.5 g 12.5 g (25 mL), intravenous, PRN, Starting on Fri06/13/20 at 1737, Until Fri06/14/20 at 1732, Low Blood Sugar, Routine diphenhydrAMINE (BENADRYL) elixir 12.5 mg 12.5 mg, oral, EVERY 6 HOURS PRN, Starting on Fri06/13/20 at 1737, Until Fri06/14/20 at 1732, Itching, Routine diphenhydrAMINE (BENADRYL) injection 12.5 mg (COMPLETED) 12.5 mg, intravenous, PRN, 1 dose, Starting on Fri06/13/20 at 1213, Until Fri06/13/20 at 1547, nausea, Routine, Recovery (only) 1547 (Given - Provider: Shawnee Yadav, ALEXA) glucagon injection 1 mg 1 mg, intramuscular, PRN, Starting on Fri06/13/20 at 1737, Until Fri06/14/20 at 1732, Other, Low blood sugar, Routine HYDROmorphone (DILAUDID) tablet 2-4 mg 2-4 mg, oral, EVERY 4 HOURS PRN, Starting on Fri06/13/20 at 1737, Until Fri06/14/20 at 1732, Pain, Routine 1422 (Given - Provid er: Ranjeet Evangelista RN - Comment: pre medicating for ride home) HYDROmorphone (PF) (DILAUDID) 0.5 mg/0.5 mL syringe 0.2-0.4 mg 0.2-0.4 mg, intravenous, EVERY 4 HOURS PRN, Starting on Fri06/13/20 at 1737, Until Fri06/14/20 at 1732, Pain, Routine ibuprofen (MOTRIN) tablet 400 mg 400 mg, oral, EVERY 6 HOURS PRN, Starting on Fri06/13/20 at 0700, Until Fri06/14/20 at 0659, Pain, Routine 2020 (Given - Provider: Jun Mcintyre, ALEXA) indocyanine green (IC-GREEN) injection (CANCELED) As needed, Starting on Fri06/13/20 at 1059, Until Fri06/13/20 at 1124, Routine, Intraprocedure 1059 (Given - Provider: Tracey De La Rosa MD - Comment: 25mg in 20 mls of sterile water instilled into the ureter) iohexoL (OMNIPAQUE 300) injection (CANCELED) As needed, Starting on Fri06/13/20 at 0818, Until Fri06/13/20 at 0821, Routine, Intraprocedure 0818 (Given - Provider: Hao Rodríguez MD) lidocaine-EPINEPHrine 1 %-1:100,000 injection (CANCELED) As needed, Starting on Fri06/13/20 at 1057, Until Fri06/13/20 at 1057, Routine, Intraprocedure 1057 (Given - Provider: Tracey De La Rosa MD - Comment: soaked on raytex placed on buccal mucosa) ondansetron (PF) (ZOFRAN) injection 4 mg (COMPLETED) 4 mg, intravenous, PRN, 1 dose, Starting on Fri06/13/20 at 1213, Until Fri06/13/20 at 1535, Nausea, Vomiting, Routine, Recovery (only) 1535 (Given - Provider: Shawnee Yadav RN) ondansetron (PF) (ZOFRAN) injection 4 mg(Linked Group 1) 4 mg, intravenous, EVERY 4 HOURS PRN, Starting on Fri06/13/20 at 1737, Until Fri06/14/20 at 1732, Nausea, Routine 1422 (See Alternativ e - Provider: Ranjeet Evangelista RN) ondansetron (ZOFRAN-ODT) disintegrating tablet 4 mg(Linked Group 1) 4 mg, oral, EVERY 4 HOURS PRN, Starting on Fri06/13/20 at 1737, Until Fri06/14/20 at 1732, Nausea, Routine 1422 (Given - Provid er: Ranjeet Evangelista RN - Comment: pre medicating for ride home) phenazopyridine (PYRIDIUM) tablet 200 mg 200 mg, oral, 3 TIMES DAILY PRN, 9 doses, Starting on Fri06/13/20 at 1301, Until Fri06/14/20 at 1732, Pain, Routine, Recovery & On Unit No Frequency Medication Order 06/12/2020 06/13/2020 06/14/2020 albuterol (ACCUNEB) 2.5 mg /3 mL (0.083 %) nebulizer solution 1 dose, Starting on Fri06/13/20 at 1611, Until Fri06/14/20 at 1732 ceFAZolin in dextrose (iso-os) piggyback 2 g/100 mL (ANCEF) 2 gram/100 mL IVPB 1 dose, Starting on Fri06/13/20 at 1630, Until Fri06/14/20 at 1732 Linked Groups Order Group 1: ondansetron (PF) (ZOFRAN) injection 4 mgJump to med 4 mg, intravenous, EVERY 4 HOURS PRN, Starting on Fri06/13/20 at 1737, Until Fri06/14/20 at 1732, Nausea, Routine Or ondansetron (ZOFRAN-ODT) disintegrating tablet 4 mgJump to med 4 mg, oral, EVERY 4 HOURS PRN, Starting on Fri06/13/20 at 1737, Until Fri06/14/20 at 1732, Nausea, Routine documented in this encounter Orders Medications Ordered That John ht Not Have Been Administered Count Last Ordered Date First Ordered Date albuterol (ACCUNEB) 2.5 mg / 3 mL (0.083 %) nebulizer solution 1 06/13/2020 atropine 0.1 mg/mL syringe 0.5 mg 1 021 ceFAZolin (ANCEF) syringe 3 g 1 06/13/2020 ceFAZolin in dextrose (iso-o s) piggyback 2 g/100 mL (ANCEF) 2 gram/100 mL IVPB 1 06/13/2020 dextrose 50 % solution 12.5 g 2 06/13/2020 diphenhydrAMINE (BENADRYL) elixir 12.5 mg 1 06/13/2020 fentaNYL citrate (PF) injection 25-50 mcg 1 06/13/2020 gabapentin (NEURONTIN) capsule 400 mg 1 glucagon injection 1 mg 2 06/13/2020 HYDROmorphone (DILAUDID) tablet 2-4 mg 1 HYDROmorphone (PF) (DILAUDID ) 0.5 mg/0.5 mL syringe 0.2-0.4 mg 1 06/13/2020 HYDROmorphone (PF) (DILAUDID ) 0.5 mg/0.5 mL syringe 0.3-0.5 mg 1 06/13/2020 insulin aspart U-100 (NOVOLO G FLEXPEN) injection 1 06/13/2020 lidocaine (PF) 10 mg/mL (1 % ) injection 2 mg 1 06/13/2020 naloxone (NARCAN) injection 0.2 mg 1 2020 ondansetron (PF) (ZOFRAN) injection 4 mg 1 06/13/2020 phenazopyridine (PYRIDIUM) tablet 200 mg 1 06/13/2020 Respiratory Care Count Last Ordered Date First Ordered Date NEBULIZER TX INTERMITTENT 1 06/13/2020 Transfer Count Last Ordered Date First Orde red Date TEACHING SERVICE 1 06/13/2020 Discharge Count Last Ordered Date First Orde red Date DISCHARGE PATIENT 1 06/14/2020 documented in this encounter Additional Health Concerns Infection Onset Date Last Indicated Resolved Time 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 difficile Comment:IP note: Per chart notes, diagnosed on approximately 05/15/20 at an outside facility. Yasmeen Petty, Infection Prevention, 05/24/2020 05/23/2020 05/23/2020 07/22/2020 22:15 EDT documented as of this encounter Care Teams Laborer Gold Leaf Relationship Specialty Start Date End Date Sera Gay FNP [address] [place] [address] PCP - General 09/02/13 10/31/22 documented as of this encounter
--- OUTSIDE RECORDS SUMMARY | 2023-12-18 00:14 | XMS_ITS | Encounter Summary ---
Author Organization [facility] Address [address] [place] [address] Care Team Providers Care Pipelines Laborer Name Role Phone Sera Gay Tommy STEINER Primary Care Provider + Reason for Visit * Reason Onset Date Comments COVID-19 05/30/2020 Encounter Details Date Type Department Care Team (Late st Contact Info) Description 05/30/2020 Telephone [facility] Urology - [address] [address] Hao Rodríguez MD [address] [place] [address], [address] [place] [address] COVID-19 Social History Tobacco Use Types Packs/Day Years [...] have Coronavirus / COVID-19? No / Unsure 07/12/2020 13:51 EDT documented as of this encounter Functional [...] encounter Miscellaneous Notes * Telephone Encounter - Zachary Ortiz - 05/30/2020 0845 EST Patient called to inform she would like to have COVID-19 test for 06/13 procedure at [facility]. Associate Data Scientist [facility]ed [facility] and instructed patient to call [facility] to schedule the test between 06/06 and 06/08 at 12:00. documented in this encounter Plan of Treatment [...] Prevention, 05/24/2020 05/23/2020 05/23/2020 07/22/2020 22:15 EDT COVID-19 07/18/2020 07/18/2020 08/17/2020 22:1 5 EDT documented as of this encounter Care Teams Pipelines Laborer Relationship Specialty Start Date End Date Sera Gay FNP [address] [place] [address] PCP - General 09/02/13 10/31/22 documented as of this encounter
--- OUTSIDE RECORDS SUMMARY | 2023-12-18 00:14 | XMS_ITS | Encounter Summary ---
Author Organization [facility] Address [address] [place] [address] Care Team Providers Care Histology Technologist Name Role Phone Sera Gay JATIN Primary Care Provider + Encounter Details Date Type Department Care Team (Latest Contact Info) Description 06/07/2020 Travel Social History Tobacco Use Types Packs/Day [...] have Coronavirus / COVID-19? No / Unsure 06/07/2020 13:22 EST documented as of this encounter Functional Status [...] documented as of this encounter Care Teams Histology Technologist Relationship Specialty Start Date End Date Sera Gay FNP [address] [place] [address] PCP - General 09/02/13 10/31/22 documented as of this encounter
--- OUTSIDE RECORDS SUMMARY | 2023-12-18 00:14 | XMS_ITS | Encounter Summary ---
Author Organization [facility] Address [address] [place] [address] Care Team Providers Care Internet Security Specialist Name Role Phone Victor Hugo Sera STEINER Primary Care Provider + Reason for Visit * Reason Onset Date Comments Urinary Tract Infection 10/12/2020 Returning Call 10/16/2020 Encounter Details Date Type Department Care Team (Late st Contact Info) Description 10/12/2020 Telephone [facility] Urology - [address] [id number] Hao Rodríguez MD [address] [facility], [address] [place] [address] Urinary Tract Infection; Returning Call Social History Tobacco Use Types Packs/Day Years [...] No 05/22/2020 documented as of this encounter Ordered Prescriptions Prescription Sig Dispensed Refills Start Date End Da te sulfamethoxazole-trimetho prim (BACTRIM DS) 800-160 mg per tablet Take 1 Tablet by mouth 2 times daily for 7 days. 14 Tablet 10/16/2020 10/23/2020 documented in this encounter Miscellaneous Notes * Telephone Encounter - Beverley Coto RN - 10/16/2020 1447 EDT TC to pt. Reviewed Dr. Rodríguez's plan to have the patient stop macrobid and start bactrim. * Telephone Encounter - Jeanette Washington - 10/16/2020 1333 EDT Patient returning Amarilys's call. * Telephone Encounter - Amarilys Kolb RN - 10/16/[address] Rodríguez regarding recent urine cx. Per Dr. Rodríguez Bactrim DS PO BID x 1 week. Patient will need to stop her macrobid. LM for return call * Telephone Encounter - Steffanie Mckeon RN - 10/12/2020 1455 EDT The patient notes that she has had multiple UTI's since she saw Dr Marcos blair. [facility] is where she has submit her urine samples in the past with herPCP. Phone number [phone] She has been treated for 4 infection [address] saw Dr Rodríguez at the beginning of august. She was starting on another antibiotic the of last week. She was put on macrobid 100mg BID for10 days. She was treated before that with Bactrim DS BID for 7 days. Before the bactrim is when theculture was done. Her symptoms cleared while on bactrim, but came back within about 3 days. On the macrobid she has not seen any improvement in symptoms. The symptoms she has been having are dysuria, frequency, and urgency. Denies fevers, no n/v. She will submit a new urine sample today or tomorrow at [facility]. He is aware that wewill not have the result in Friday. She sees Dr Rodríguez then. Aware to go the the ED for sustained fever or fever greater than 101.5, nausea,vomitting, difficulty or inability to urinate, or uncontrolled pain. No further questions or complaints at this time. * Telephone Encounter - Zachary Ortiz - 10/12/2020 1147 EDT Patient is calling to report she has had multiple UTI's. She has been working with her PCP but the medication doesn't seem to be working. Please call back to discuss. 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
--- OUTSIDE RECORDS SUMMARY | 2023-12-18 00:14 | XMS_ITS | Encounter Summary ---
Author Organization [facility] Address [address] [place] [address] Care Team Providers Care Cover Stitch Machine Operator Name Role Phone Victor HugoSera Tommy STEINER Primary Care Provider + Reason for Visit * Reason Comments Post-OP Follow Up Cystoscopy Stent removal Encounter Details Date Type Department Care Team (Late st Contact Info) Description 07/12/2020 14:30 EDT Post-op Visit [facility] Urology - [address] [phone] Hao Rodríguez MD [address] [facility], [address] [place] [address] Scope, Cystoscopy Ureteral stricture (Primary Dx) Social History Tobacco [...] Progress Notes * Hao Rodríguez MD - 07/12/2020 1430 EDT URO Office Cystoscopy Office cystoscopy for: stent removal. Anesthesia: 2% lidocaine gel . Procedure: Patient identified, prepped and draped in usual sterile manner 14 icelandic. Flexible cystoscope inserted into urethra and guided into bladder under direct vision. Finding:normal urethra, normal bladder mucosa, normal orifices and abnormal findings: stent removalright. Plan: Doign well s/p buccal mucosal ureteral repair. F/U 1 month for Nancy in office. On Bactrim. 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 difficile Comment:IP note: Per chart notes, diagnosed on approximately 05/15/20 at an outside facility. Yasmeen Petty, Infection Prevention, 05/24/2020 05/23/2020 05/23/2020 07/22/2020 22:15 EDT documented as of this encounter Care Teams Cover Stitch Machine Operator Relationship Specialty Start Date End Date Sera Gay FNP [address] [place] [address] PCP - General 09/02/13 10/31/22 documented as of this encounter
--- OUTSIDE RECORDS SUMMARY | 2023-12-18 00:14 | XMS_ITS | Encounter Summary ---
Author Organization [facility] Address [address] [place] [address] Care Team Providers Care Worker'S Compensation Claims Examiner Name Role Phone Sera Gay JATIN Primary Care Provider + Encounter Details Date Type Department Care Team (Latest Contact Info) Description 06/13/2020 Travel Social History Tobacco Use Types Packs/Day [...] 5:35 EST documented as of this encounter Functional [...] documented as of this encounter Care Teams Worker'S Compensation Claims Examiner Relationship Specialty Start Date End Date Sera Gay FNP [address] [place] [address] PCP - General 09/02/13 10/31/22 documented as of this encounter
--- OUTSIDE RECORDS SUMMARY | 2023-12-18 00:14 | XMS_ITS | Encounter Summary ---
Author Organization [facility] Address [address] [place] [address] Care Team Providers Care Surveyor Helper Rod Name Role Phone Victor HugoSera Tommy STEINER Primary Care Provider + Encounter Details Date Type Department Care Team (Latest Contact Info) Description 07/12/2020 Travel Social History Tobacco Use Types Packs/Day [...] documented as of this encounter Care Teams Surveyor Helper Rod Relationship Specialty Start Date End Date Sera Gay FNP [address] [place] [address] PCP - General 09/02/13 10/31/22 documented as of this encounter
--- OUTSIDE RECORDS SUMMARY | 2023-12-18 00:14 | XMS_ITS | Encounter Summary ---
Author Organization [facility] Address [address] [place] [address] Care Team Providers Care Auto Body Repairer Fiberglass Name Role Phone Victor Hugo Sear STEINER Primary Care Provider + Reason for Visit * Reason Onset Date Comments Pre-visit Orders 06/12/2020 Magnesium citra te (10 oz bottle) Encounter Details Date Type Department Care Team (Late st Contact Info) Description 06/12/2020 Telephone [facility] Urology - [address] [phone] Hao Rodríguez MD [address] [facility], [address] [place] [address] Pre-visit Orders (Magnesium citrate (10 oz bottle)) Social History Tobacco Use Types Packs/Day Years [...] encounter Miscellaneous Notes * Telephone Encounter - Tamiko White RN - 06/12/2020 1032 EST TC to patient, advised that the Magnesium Citrate 10 oz bottle is available OTC at an pharmacy, sheis aware * Telephone Encounter - Vanessa Almonte - 06/12/2020 0948 EST ??Patient calling to speak to nurse about tomorrows procedure. She wasn't sure where she was supposed to get the Magnesium citrate from for her bowel prep. Please call back to discuss. 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 difficile Comment:IP note: Per chart notes, diagnosed on approximately 05/15/20 at an outside facility. Yasmeen Petty, Infection Prevention, 05/24/2020 05/23/2020 05/23/2020 07/22/2020 22:15 EDT documented as of this encounter Care Teams Auto Body Repairer Fiberglass Relationship Specialty Start Date End Date Sera Gay FNP [address] [place] [address] PCP - General 09/02/13 10/31/22 documented as of this encounter
--- OUTSIDE RECORDS SUMMARY | 2023-12-18 00:14 | XMS_ITS | Encounter Summary ---
Author Organization [facility] Address [address] [place] [address] Care Team Providers Care Orthopedic Physical Therapist Name Role Phone Victor HugoSera Tommy STEINER Primary Care Provider + Reason for Visit * Reason Onset Date Comments Appointment Related 07/11/2020 Encounter Details Date Type Department Care Team (Late st Contact Info) Description 07/11/2020 Telephone [facility] Urology - [address] [address] Hao Rodríguez MD [address] [place] [address], [address] [place] [phone] Appointment Related Social History Tobacco Use Types [...] * Telephone Encounter - Beverley Powell - 07/11/2020 1135 EDT Called and spoke to the patient's , confirming her sagar on Jul 12 at 2:30 pm for an in-clinic visit with Dr Rodríguez. documented in this encounter Plan of Treatment [...] documented as of this encounter Care Teams Orthopedic Physical Therapist Relationship Specialty Start Date End Date Sera Gay FNP [address] [place] [address] PCP - General 09/02/13 10/31/22 documented as of this encounter
--- OUTSIDE RECORDS SUMMARY | 2023-12-18 00:14 | XMS_ITS | Encounter Summary ---
Author Organization [facility] Address [address] [place] [address] Care Team Providers Care Chro Name Role Phone Victor HugoSera Tommy STEINER Primary Care Provider + Reason for Visit * Reason Comments Follow-up APRIL Encounter Details Date Type Department Care Team (Late st Contact Info) Description 09/04/2020 9:15 EDT Telemedicine [facility] Urology - [address] [address] Hao Rodríguez MD [address] [place] [address], [address] [place] [phone] Ureteral stricture (Primary Dx) Social History Tobacco [...] Progress Notes * Hao Rodríguez MD - 09/04/2020 0915 EDT Ms. Ortiz is a 50-year-old woman who underwent a right robotic assisted laparoscopic ureteral repair with buccal mucosal for a ureteral stricture in May 2020. She has done very well since. She had her stent removed and a follow-up ultrasound recently shows complete resolution of her hydronephrosis. She denies any flank pain nausea vomiting stones or other complaints. As she is feeling very well without signs of ongoing obstruction, I will plan to see her back in 1 month's time with a nuclear renal scan to ensure preservation of function and good drainage of the kidney. TELEMEDICINE VIDEO VISIT Today's visit was provided [...] on file documented as of this encounter Results * NM RENAL FLOW/FUNCTION [...] 01, 2020, CT May 22, 2020, renal scanAugus2019 Technique: After simultaneous intravenous injection of 25 [...] renal function, decreased on the right, [place] 2019 Hao Rodríguez MD IMG NM ORDERABLES documented in this encounter Visit Diagnoses Diagnosis Ureteral stricture- Primary Stricture or kinking of ureter Ureteral stricture Stricture or kinking of ureter documented in this encounter Additional Health Concerns Infection Onset Date Last Indicated Resolved Time MDR-GNR Comment:IP Note: 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
--- OUTSIDE RECORDS SUMMARY | 2023-12-18 00:14 | XMS_ITS | Encounter Summary ---
Author Organization [facility] Address [address] [place] [address] Care Team Providers Care Treatment Coordinator Name Role Phone Victor Hugo Sera STEINER Primary Care Provider + Reason for Visit * Reason Onset Date Comments Returning Call 06/09/2020 Pre-visit Planning 06/09/2020 Discuss Surgery 06/12/2020 Encounter Details Date Type Department Care Team (Late st Contact Info) Description 06/09/2020 Telephone [facility] Urology - [address] [phone] Hao Rodríguez MD [address] [facility], [address] [place] [address] Returning Call; Pre-visit Planning; Discuss Surgery Social History Tobacco Use Types Packs/Day Years [...] encounter Miscellaneous Notes * Telephone Encounter - Noy Falcon - 06/12/2020 0832 EST Left a message with the patient. The patient was instructed to check in at 6:00 for a 7:30 procedure on 06/13/20. PREP FOR SURGERY: Day Prior to surgery: 1) You can have a light breakfast. Then clear liquids only the rest of the day. 2) Bowel Prep: Magnesium citrate (10 oz bottle), drink the entire bottle at 4 pm. Day of surgery: 1) You can have only water or other fat free clear liquids until 3 hours before the scheduled time of your procedure. Patient is aware that they will be admitted after their procedure. * Telephone Encounter - Zachary Ortiz - 06/09/2020 1604 EST Patient is calling back to speak with Noy Falcon about her 06/13 procedure. Preschool Teacher Assistant tried but was unable to reach Noy. Please call back. documented in this encounter Plan of Treatment [...] documented as of this encounter Care Teams Treatment Coordinator Relationship Specialty Start Date End Date Sera Gay FNP [address] [place] [address] PCP - General 09/02/13 10/31/22 documented as of this encounter
--- OUTSIDE RECORDS SUMMARY | 2023-12-18 00:14 | XMS_ITS | Encounter Summary ---
Author Organization [facility] Address [address] [place] [address] Care Team Providers Care Digital Marketing Consultant Name Role Phone Sera Gay JATIN Primary Care Provider + Reason for Referral * Radiology Services (Routine) - Specialty Report Received Specialty Diagnoses / Procedures [facility] Referred To Contact Diagnoses Ureteral stricture Procedures US RENAL/BLADDER COMPLETE Hao Rodríguez MD [address] [place] [phone] Referral ID Status Reason Start Date Expiration Date V isits Requested Visits Authorized [id number] Specialty Report Received 08/30/2020 1 1 Reason for Visit * Reason Onset Date Comments Orders (Non Pre-visit) 08/30/2020 Encounter Details Date Type Department Care Team (Late st Contact Info) Description 08/30/2020 Orders Only [facility] Urology - [address] [address] Hao Rodríguez MD [address] [place] [phone] Ureteral stricture (Primary Dx) Social History [...] of this encounter Plan of Treatment Scheduled Orders Name Type Priority Associated Diagnoses Orde r Schedule US RENAL/BLADDER COMPLETE Imaging Routine Ureteral stricture Ordered: 08/30/2020 documented as of this encounter Visit Diagnoses Diagnosis Ureteral stricture- Primary Stricture or kinking of ureter documented in this encounter Additional Health Concerns Infection Onset Date Last Indicated Resolved Time 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
--- OUTSIDE RECORDS SUMMARY | 2023-12-18 00:14 | XMS_ITS | Encounter Summary ---
Author Organization [facility] Address [address] [place] [address] Care Team Providers Care Pet Walker Name Role Phone Sera Gay Tommy STEINER Primary Care Provider + Encounter Details Date Type Department Care Team (Late st Contact Info) Description 06/12/2020 Prep for Procedure [facility] Urology - [address] [phone] Gale Chaidez PA-C [address] [place] [address], [address] [place] [address] Social History Tobacco Use Types Packs/Day Years [...] documented as of this encounter Care Teams Pet Walker Relationship Specialty Start Date End Date Sera Gay FNP [address] [place] [address] PCP - General 09/02/13 10/31/22 documented as of this encounter
--- OUTSIDE RECORDS SUMMARY | 2023-12-18 00:14 | XMS_ITS | Encounter Summary ---
Author Organization [facility] Address [address] [place] [address] Care Team Providers Care Nature Photographer Name Role Phone Sera GayP Primary Care Provider + Arabella Godinez ENGLISH COMPOSITION TEACHER Primary Care Provider [phone] Encounter Details Date Type Department Care Team (Late st Contact Info) Description 06/06/2020 Lab Requisition [facility] - [facility] [address] [place], [place] [phone] Outr Resulting Lab, Provider Social History Tobacco Use Types Packs/Day Years [...] Procedure Name Priority Date/Time Associated Diagnosis Comments ZZCOVID-19 TEST [facility] PCR Today 06/06/2020 9:22 EST COVID-19 TESTING Routine 06/06/2020 9:22 EST documented in this encounter Results * COVID-19 TEST [facility] PCR (06/06/2020 9:22 EST) Swab ENTIRE NASOPHARYNX / Unknown 06/06/2020 9:22 EST 06/06/2020 17:06 EST Provider Outr Resulting Lab MICROBIOLOGY - GENERAL ORDERABLES Performing Organization Address City/State/[facility] Co de Phone Number [facility] [address] [place] [address] * COVID-19 TESTING (06/06/2020 9:22 EST) COVID-19 rt-PCR Result Negative Negative 06/07/2020 13:57 EST [facility] Comment: This test has not been FDA cleared or approved. This test has been authorized by FDA under an EUA for use by authorized laboratories. This test has been authorized only for detection of nucleic acid from 2019-nCoV, not for any other viruses or pathogens. This test is only authorized for the duration of the declaration that circumstances exist justifying the authorization of emergency use of in vitro diagnostic tests for detection and/or diagnosis of 2019-nCoV under section 564(b)(1) of Act, 21 U.S.C ?? 360bbb-3(b) (1), unless the authorization is terminated or revoked sooner. Negative results do not preclude 2019-nCoV infection and should not be used as the sole basis for treatment or other patient management decisions. Negative results must be combined with clinical observations, patient history, and epidemiological information. Testing was performed using the amarilis SARS-CoV-2 assay ([employer] on the Amarilis 6800 System Performing Lab Amarilis 6800 [facility] 06/07/2020 13:57 EST [facility] Swab 06/06/2020 9:22 EST 06/06/2020 17:06 EST Provider Outr Resulting Lab MICROBIOLOGY - GENERAL ORDERABLES Performing Organization Address City/State/[facility] Co de Phone Number [facility] [address] [place] [address] documented in this encounter Visit Diagnoses Not [...] documented as of this encounter Care Teams Nature Photographer Relationship Specialty Start Date End Date Sera Gay FNP [address] [place] [address] PCP - General 09/02/13 10/31/22 Arabella Godinez NP [address] [place] [address] PCP - General Family Medicine - Primary Care 11/01/22 documented as of this encounter
--- OUTSIDE RECORDS SUMMARY | 2023-12-18 00:14 | XMS_ITS | Encounter Summary ---
Author Organization [facility] Address [address] [place] [address] Care Team Providers Care Loft Rigger Name Role Phone Victor Hugo Sera Tommy STEINER Primary Care Provider + Reason for Visit * Reason Onset Date Comments Appointment Related 08/30/2020 Encounter Details Date Type Department Care Team (Late st Contact Info) Description 08/30/[address] [facility] Urology - [address] [address] Hao Rodríguez MD 111 [facility], [address] [place] [phone] Appointment Related Social History Tobacco Use Types [...] * Telephone Encounter - Beverley Powell - 08/30/2020 1511 EDT Reached out to the patient, and stated we are working on getting a renal ultrasound scheduled at [facility] radiology prior to her follow up with Dr Rodríguez on September 04. [facility] said they would be able to fit her in, we will need to fax them the order when ready. * Telephone Encounter - Yani Saha - 08/30/2020 1304 EDT Pt was transferred to [facility] office to cx appt for US on 08/31. She would prefer to do this at either [facility] or [facility] as these are closer to where she lives and she can get a ride there. documented in this encounter Plan of Treatment [...] documented as of this encounter Care Teams Loft Rigger Relationship Specialty Start Date End Date Sera Gay FNP [address] [place] [address] PCP - General 09/02/13 10/31/22 documented as of this encounter
--- OUTSIDE RECORDS SUMMARY | 2023-12-18 00:14 | XMS_ITS | Encounter Summary ---
Author Organization [facility] Address [address] [place] [address] Care Team Providers Care Die Hardener Name Role Phone Sera Gay Primary Care Provider + Reason for Visit * (Routine) - Receiving Office to Obtain Authorization Specialty Diagnoses / Procedures Referred By Claudio quinteros Referred To Contact Procedures US OUTSIDE IMAGES BODY Unknown, Provider, Referral ID Status Reason Start Date Expiration Date Visits Requested Visits Authorized [id number] Receiving Office to Obtain Authorization 09/01/2020 1 1 Encounter Details Date Type Department Care Team (Latest Contact Info) Description 09/01/2020 14:27 EDT - 09/01/2020 23:59 EDT Hospital Encounter [facility] Secondary Reads [place] Discharge Disposition: Home [...] 50 mg by mouth 2 times daily. dpizffg-uiyamxfrj-deradrtc dramine (MAGIC MOUTHWASH) Take 15 mL by mouth every 4 hours as needed for Pain. Swish and spit 120 mL 06/14/2020 naloxone (NARCAN) 4 mg/actuation nasal spray 1 [place] by nasal route as needed for Opioid [...] Procedure Name Priority Date/Time Associated Diagnosis Comments US OUTSIDE IMAGES BODY Routine 09/01/2020 14:27 EDT documented in this encounter Results * US OUTSIDE IMAGES BODY (09/01/2020 14:27 EDT) Narrative 09/01/2020 14:27 EDT This is a non-reportable exam. Provider [...] documented as of this encounter Care Teams Die Hardener Relationship Specialty Start Date End Date Sera Gay FNP [address] [place] [address] PCP - General 09/02/13 10/31/22 documented as of this encounter
--- OUTSIDE RECORDS SUMMARY | 2023-12-18 00:14 | XMS_ITS | Encounter Summary ---
Author Organization [facility] Address [address] [place] [address] Care Team Providers Care Wood Crew Supervisor Name Role Phone Victor HugoSera Tommy STEINER Primary Care Provider + Reason for Visit * Reason Onset Date Comments Discuss Surgery 06/09/2020 Encounter Details Date Type Department Care Team (Late st Contact Info) Description 06/09/2020 Telephone [facility] Urology - [address] [address] Hao Rodríguez MD [address] [place] [address], [address] [place] [phone] Discuss Surgery Social History Tobacco Use Types [...] * Telephone Encounter - Noy Falcon - 06/09/2020 0862 EST Left a message with the patient. [...] they will be admitted after their procedure. documented in this encounter Plan of Treatment [...] documented as of this encounter Care Teams Wood Crew Supervisor Relationship Specialty Start Date End Date Sera Gay FNP [address] [place] [address] PCP - General 09/02/13 10/31/22 documented as of this encounter
--- OUTSIDE RECORDS SUMMARY | 2023-12-18 00:14 | XMS_ITS | Encounter Summary ---
Author Organization [facility] Address [address] [place] [address] Care Team Providers Care Cota Name Role Phone Victor Hugo Sera STEINER Primary Care Provider + Reason for Visit * Reason Onset Date Comments Follow-up 07/06/2020 Encounter Details Date Type Department Care Team (Late st Contact Info) Description 07/06/2020 Telephone [facility] Urology - [facility] [address] [place] [address] Steffanie Mckeon, RN Follow-up Social History Tobacco Use Types Packs/Day [...] Telephone Encounter - Steffanie Mckeon RN - 07/06/2020 1141 EST Spoke with Kathleen and BURN OUT TENDER LACE from the patient's pcp office. She is calling because the patient is in to see them today with a recurrence of her UTI symptoms. She has ugency frequency, and dysuria. Her dipstick is 3+ blood, 2+ protein, 2+ leuks, nitrate +. They wanted Dr Rodríguez advise on treatment. Theywould give the patient at ceftriaxone im injection now and can send her home with something. Dr Rodríguez is okay with that and would recommend bactrim for 7 days after that. Kathleen is aware. They will follow the culture for effectiveness. 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 difficile Comment:IP note: Per chart notes, diagnosed on approximately 05/15/20 at an outside facility. Yasmeen Petty, Infection Prevention, 05/24/2020 05/23/2020 05/23/2020 07/22/2020 22:15 EDT documented as of this encounter Care Teams Cota Relationship Specialty Start Date End Date Sera Gay FNP [address] [place] [address] PCP - General 09/02/13 10/31/22 documented as of this encounter
--- OUTSIDE RECORDS SUMMARY | 2023-12-18 00:14 | XMS_ITS | Encounter Summary ---
Author Organization [facility] Address [address] [place] [address] Care Team Providers Care Senior Abap Developer Name Role Phone Sera Gay Tommy STEINER Primary Care Provider + Encounter Details Date Type Department Care Team (Late st Contact Info) Description 09/05/2020 Orders Only [facility] Radiology - [place] [address] [place], [place] [phone] Oma Roth MD [address] [place] [phone] Social History Tobacco Use Types Packs/Day Years [...] as of this encounter Care Teams Senior Abap Developer Relationship Specialty Start Date End Date Sera Gay FNP [address] [place] [address] PCP - General 09/02/13 10/31/22 documented as of this encounter
--- OUTSIDE RECORDS SUMMARY | 2023-12-18 00:14 | XMS_ITS | Encounter Summary ---
Author Organization [facility] Address [address] [place] [address] Care Team Providers Care Service Station Helper Name Role Phone Sera Gay JATIN Primary Care Provider + Reason for Visit * Auth/Cert Specialty Diagnoses / Procedures Referred By Claudio quinteros Referred To Contact Diagnoses Ureteral stricture Procedures ME LAP,REIMPLANT URETER W/O CYSTO,STENT ME FULL THICK GRFT HEAD,FAC,HAND <20SQC ME CYSTOURETHROSCOPY,URETER CATHETER Cystoscopy, right retrograde pyelography, right robotic assisted laparoscopic ureteral repair with possible buccal mucosal graft . CYSTOSCOPY, WITH URETERAL CATHETER . Referral ID Status Reason Start Date Expiration Date Visits Re quested Visits Authorized [id number] 1 1 Encounter Details Date Type Department Care Team (Late st Contact Info) Description 06/13/2020 7:32 EST Anesthesia Event [facility] OR [address] [place], [place] [id number] Yifan Cartagena MD [address] [place] [address], [address] [place] [address] Anesthesia Record Procedure Summary Procedure Name Responsible Anesthesiologist Anesthesia Start Time Anesthesia Stop Time Cystoscopy, right retrograde pyelography, right robotic assisted laparoscopic ureteral repair with possible buccal mucosal graft, Right ureteroscopy (Right: Ureter) Yifan Cartagena MD 06/13/20 0732 06/13/20 1309 Events Date Time Event Comment 06/13/2020 0732 An Start The patient was re-evaluated immediately before moderate or deep sedation use, before anesthesia induction, or before the anesthesia procedure. 0732 An Start Data 0744 An Induction The patient was reevaluated immediately before moderate or deep sedation use and before anesthesia induction. 0746 An Intubation 0748 Anesthesia Ready 1253 An Extubation Patient extuba adrián after suctioning, breathing spon taneously. To PACU with 3 LPM O2 via nasal prongs. 1306 an stop data 1309 Handoff to RN I completed my handoff to the receiving nurse during which we: 1. Identified the patient 2. Identified the responsible provider 3. Reviewed the pertinent medical history 4. Discussed the surgical course 5. Reviewed intra-op anesthesia management and issues during anesthesia 6. Set expectations for post-procedure period 7. Allowed opportunity for questions and acknowledgement of understanding. 1309 An Stop Meds Name Total dexaMETHasone 4 mg/mL injection 0.2 mg ePHEDrine pre-filled syringe 10 mg fentanyl citrate (PF) injection 50 mcg lidocaine 2% (PF) injection glass vial 5 0 mg ketAMINE 5 mL prefilled syringe 20 mg midazolam 1 mg/mL 2 mL vial 2 mg ondansetron (PF) (ZOFRAN) injection 4 mg phenylephrine pre-filled syringe 800 mcg propOFol (DIPRIVAN) injection 200 mg rocuronium 10 mg/mL vial 50 mg sugammadex 100 mg/mL 2 mL vial 300 mg dexmedetomidine injection - vial 12 mcg dexmedetomidine injection - vial 121.47 mcg ceFAZolin (ANCEF) syringe 3 g 5 g vecuronium 10 mg vial 11,128.93 mcg phenylephrine pre-made bag 20 mg/250 mL 3,420 mcg lactated ringers (LR) infusion 2,000 mL lactated ringers (LR) infusion 700 mL * Agents Name Insp Sevoflurane Exp Sevoflurane O2 N2O Air * Blood No blood administrations on file. Lines, Drains, and Airways Type Details Placement Removal Stent 05/22/20; 1215; In O R by ; Ureteral right; 6 Chadian; 24 cm; 11/27/22; 1301 05/22/20 1215 by Nancy Smith, ALEXA 11/27/22 1301 by Magda Isabel RN Peripheral IV 06/13/20; 0700; 18; 1.25; B Montes Introcan; Anterior, Left; Forearm; Inserted by RN (Kenisha Castano); 1; None; 3.15% Chlorhexidine with IPA; 06/14/20; 1434 06/13/20 0700 by Odin Nguyen RN 06/14/20 1434 by Ranjeet Evangelista RN Peripheral IV 06/13/20; 0750; 18; 1.25; Other (Comment) (Jelco); Left, Distal; Forearm; In OR by MD; 1; None; 70% IPA; 06/14/20; 1434 06/13/20 0750 by Ramirez Celis, AA 06/14/20 1434 by Ranjeet Evangelista RN Urethral Catheter 06/13/20; 0750; In O R by MD; Catheter per Urology, Selected surgical procedures/Epidural; Latex, Straight-tip; 16 fr; 10 ml; 06/14/20; 0415 06/13/20 0750 by Steffanie Allen RN 06/14/20 0415 by Abimbola Mota Wound 06/13/20; 1057; Inci renan; Lower, Left, Inner; Mouth; Incision inner lower left mouth from graft site ; N; Partial thickness; 11/26/22 06/13/20 1057 by Steffanie Allen RN 11/26/22 0000 by Temi Leblanc RN Wound 06/13/20; 1059; Inci renan; Lower, Right; Abdomen; Trocar sites x 4 from robotic assisted right ureteral repair with buccal mucosal graft ; N; Full thickness; 11/26/22 06/13/20 1059 by Steffanie Allen RN 11/26/22 0000 by Temi Leblanc RN Closed/Suction Drain 06/13/20; 1111; In OR by MD; 1; Right; RLQ; 10 Chadian; 06/14/20; 1406 06/13/20 1111 by Steffanie Allen RN 06/14/20 1406 by Ranjeet Evangelista RN documented in this encounter Social History [...] OR Notes * Anesthesia Postprocedure Evaluation - Ramirez Celis, LEMUEL - 06/13/2020 1310 EST Patient: Blessing Ortiz Vital signs were reviewed with the recovery nurse. Complete vitals history is available in the Epicflowsheets. Vitals Value Taken Time BP 109/59 06/13/20 1310 Temp 36.3 06/13/20 1310 Resp 19 06/13/20 1310 Pulse From Oximetry 93 BPM 06/13/20 1309 SpO2 91 % 06/13/20 1309 Vitals shown include unvalidated device data. Last Pain Score - Numeric Pain Level (Scale 1-10): 0 Type of Anesthesia - general Anesthesia Post Evaluation Post-procedure vitals reviewed and are stable. Level of consciousness: sedated Temperature status: normothermia Respiratory status: airway patent and nasal cannula Cardiovascular status: acceptable Hydration status: adequate Nausea/Vomiting: none Pain management: adequate Post-Op Assessment: patient tolerated procedure well with no complications Patient participation: unable to participate due to sedation Disposition: inpatient Anesthesia Complications: No apparent anesthesia complications * Anesthesia Procedure Notes - Ramirez Celis AA - 06/13/2020 0806 EST Associated Order(s): Airway Airway Date/Time: 06/13/2020 7:46 Urgency: elective Airway not difficult General Information and Staff Patient location during procedure: OR Anesthesiologist: Yifan Cartagena MD Resident/COOK CHILL TECHNICIAN: Ramirez Celis AA Performed: resident/COOK CHILL TECHNICIAN/AA Indications and Patient Condition Indications for airway management: anesthesia Sedation level: GA Preoxygenated: yes Patient position: sniffing Ventilation assessment: 1 - Easy Final Airway Details Final airway type: endotracheal airway Successful airway: ETT Cuffed: yes Successful intubation technique: direct laryngoscopy Facilitating devices/methods: intubating stylet Endotracheal tube insertion site: oral Blade: Melissa Blade size: #3 ETT size (mm): 7.0 Cormack-Lehane Classification: grade IIa - partial view of glottis Placement verified by: palpation of cuff Measured from: teeth ETT to teeth (cm): 22 Ventilation between attempts: none Number of other approaches attempted: 0 * Anesthesia Preprocedure Evaluation - Yifan Cartagena MD - 06/12/2020 1507 EST Anesthesia Preprocedure Evaluation Patient Medical History, including Anesthesia History reviewed. Chart and Nursing Notes reviewed, including NPO status and Medication History. Medications New medications from outside sources are available for reconciliation acetaminophen (TYLENOL) 325 mg tablet Take 2 Tabs by mouth every 4 hours as needed for Pain. amitriptyline (ELAVIL) 25 mg tablet Take 25 mg by mouth daily. clidinium-chlordiazepoxide (LIBRAX, WITH CLIDINIUM,) 5-2.5 mg per capsule Take 1 Cap by mouth 3 times daily. diclofenac (VOLTAREN) 50 mg EC tablet Take 1 Tab by mouth 2 times daily. diclofenac (VOLTAREN) 50 mg EC tablet Take 1 Tab by mouth 2 times daily as needed for Pain. gabapentin (NEURONTIN) 400 mg capsule Take 400 mg by mouth 3 times daily. METOPROLOL SUCCINATE ORAL Take 50 mg by mouth 2 times daily. pantoprazole (PROTONIX) 40 mg tablet Take 40 mg by mouth daily. phenazopyridine (PYRIDIUM) 200 mg tablet Take 1 Tab by mouth 3 times daily as needed for Pain. piroxicam (FELDENE) 10 mg capsule Take 100 mg by mouth daily. vancomycin (VANCOCIN) 125 mg capsule Take 1 Cap by mouth 4 times daily for 18 days. Additional ROS/History Findings: Allergies Allergen Reactions ??? Adhesive Tape allergy. Blister rash ??? Levaquin [Levofloxacin] Hives and Itching Review of Systems Past Medical History: Diagnosis Date ??? Anxiety [...] distance: >3 FB Neck ROM: full Cardiovascular Dental - normal exam Pulmonary Abdominal Anesthesia Plan ASA 3 Anesthesia Type - general Anesthesia plan and risks discussed. Informed consent obtained from patient. PAT Note (Notes from 05/13/20 through 06/12/20) No notes of this type exist for this encounter. documented in this encounter Plan of Treatment Not on file documented as of this encounter Procedures Procedure Name Priority Date/Time Associated Diagnosis Comments ANESTHESIA INTUBATION Routine 06/13/2020 8:06 EST documented in this encounter Results * Airway (06/13/2020 8:06 EST) Narrative Ramirez Celis AA - 06/13/2020 8:06 EST Ramirez Celis AA ? 06/13/2020 ??8:06 Airway Date/Time: 06/13/2020 7:46 Urgency: elective Airway not difficult General Information and Staff Patient location during procedure: OR Anesthesiologist: Yifan Cartagena MD Resident/COOK CHILL TECHNICIAN: Ramirez Celis AA Performed: resident/COOK CHILL TECHNICIAN/AA Indications and Patient Condition Indications for airway management: anesthesia Sedation level: GA Preoxygenated: yes Patient position: sniffing Ventilation assessment: 1 - Easy Final Airway Details Final airway type: endotracheal airway Successful airway: ETT Cuffed: yes Successful intubation technique: direct laryngoscopy Facilitating devices/methods: intubating stylet Endotracheal tube insertion site: oral Blade: Melissa Blade size: #3 ETT size (mm): 7.0 Cormack-Lehane Classification: grade IIa - partial view of glottis Placement verified by: palpation of cuff Measured from: teeth ETT to teeth (cm): 22 Ventilation between attempts: none Number of other approaches attempted: 0 Yifan Cartagena MD ANESTHESIA ORDE ALISTAIR documented in this encounter Visit Diagnoses Not on filedocumented in this encounter Administered Medications Inactive Administered Medications - up to 3 most recent administrations Medication Order MAR Action Action Date Dose Rate Site ceFAZolin (ANCEF) syringe 3 g 3 g, intravenous, Administer over 10 Minutes, PRE-OP ONCE, 1 dose, On Fri06/13/20 at 0630, Type of Therapy: Prophylaxis, Suspected Indication (Select all that apply): Surgical prophylaxis, Routine, Preprocedure Given 06/13/2020 11:56 EST 2 g Given 06/13/2020 7:59 EST 3 g dexaMETHasone (DECADRON) injection PRN, Starting on Fri06/13/20 at 1001, Until Fri06/13/20 at 1309, Routine, Anesthesia Intraprocedure Given 06/13/2020 10:01 EST 0.2 mg dexmedeTOMIDine (PRECEDEX) injection FA IP EQF CONTINUOUS PRN FOR ONE STEP MEDS, Starting on Fri06/13/20 at 0751, Until Fri06/13/20 at 1309, Routine, Anesthesia Intraprocedure Rate Change 06/13/2020 10:14 EST 0.2 mcg/kg/hr 0.2 mL/hr New Bag 06/13/2020 7:51 EST 0.3 mcg/kg/hr 0.3 mL/hr dexmedeTOMIDine (PRECEDEX) injection PRN, Starting on Fri06/13/20 at 0749, Until Fri06/13/20 at 1309, Routine, Anesthesia Intraprocedure Given 06/13/2020 7:52 EST 6 mcg Given 06/13/2020 7:49 EST 6 mcg ePHEDrine injection 25 mg/5 mL syringe PRN, Starting on Fri06/13/20 at 0823, Until Fri06/13/20 at 1309, Routine, Anesthesia Intraprocedure Given 06/13/2020 8:26 EST 5 mg Given 06/13/2020 8:23 EST 5 mg fentaNYL citrate (PF) injection PRN, Starting on Fri06/13/20 at 1303, Until Fri06/13/20 at 1309, Routine, Anesthesia Intraprocedure Given 06/13/2020 13:03 EST 50 mcg ketAMINE in NaCl, iso-osmotic (KETALAR) 50 mg/5 mL (10 mg/mL) IV injection PRN, Starting on Fri06/13/20 at 0743, Until Fri06/13/20 at 1309, Routine, Anesthesia Intraprocedure Given 06/13/2020 7:43 EST 20 mg lactated ringers (LR) infusion 30 mL/hr, intravenous, CONTINUOUS, Starting on Fri06/13/20 at 0645, Until Fri06/13/20 at 1737, Routine, Preprocedure New Bag 06/13/2020 9:30 EST New Bag 06/13/2020 7:13 EST New Bag 06/13/2020 7:01 EST 30 mL/hr 30 mL/hr lactated ringers (LR) infusion FA IP EQF CONTINUOUS PRN FOR ONE STEP MEDS, Starting on Fri06/13/20 at 0750, Until Fri06/13/20 at 1309, Routine, Anesthesia Intraprocedure New Bag 06/13/2020 7:50 EST lidocaine (PF) 20 mg/mL (2 %) injection PRN, Starting on Fri06/13/20 at 0744, Until Fri06/13/20 at 1309, Routine, Anesthesia Intraprocedure Given 06/13/2020 7:44 EST 50 mg midazolam (PF) (VERSED) injection PRN, Starting on Fri06/13/20 at 0737, Until Fri06/13/20 at 1309, Routine, Anesthesia Intraprocedure Given 06/13/2020 7:37 EST 2 mg ondansetron (PF) (ZOFRAN) injection PRN, Starting on Fri06/13/20 at 1234, Until Fri06/13/20 at 1309, Routine, Anesthesia Intraprocedure Given 06/13/2020 12:34 EST 4 mg phenylephrine HCl in 0.9% NaCl (NEO_SYNEPHRINE) 20 mg/250 mL (80 mcg/mL) infusion solution FA IP EQF CONTINUOUS PRN FOR ONE STEP MEDS, Starting on Fri06/13/20 at 1212, Until Fri06/13/20 at 1309, Routine, Anesthesia Intraprocedure Rate Change 06/13/2020 12:18 EST 60 mcg/min 45 mL/h r New Bag 06/13/2020 12:12 EST 40 mcg/min 30 mL/hr New Bag 06/13/2020 12:09 EST 40 mcg/min 30 mL/hr phenylephrine HCl in 0.9% NaCl injection PRN, Starting on Fri06/13/20 at 0843, Until Fri06/13/20 at 1309, Routine, Anesthesia Intraprocedure Given 06/13/2020 12:30 EST 100 mcg Given 06/13/2020 11:57 EST 100 mcg Given 06/13/2020 11:47 EST 100 mcg propOFol (DIPRIVAN) injection PRN, Starting on Fri06/13/20 at 0744, Until Fri06/13/20 at 1309, Routine, Anesthesia Intraprocedure Given 06/13/2020 7:44 EST 200 mg rocuronium (ZEMURON) injection PRN, Starting on Fri06/13/20 at 0745, Until Fri06/13/20 at 1309, Routine, Anesthesia Intraprocedure Given 06/13/2020 7:45 EST 50 mg sugammadex (BRIDION) injection PRN, Starting on Fri06/13/20 at 1248, Until Fri06/13/20 at 1309, Routine, Anesthesia Intraprocedure Given 06/13/2020 12:48 EST 300 mg vecuronium (NORCURON) injection FA IP EQF CONTINUOUS PRN FOR ONE STEP MEDS, Starting on Fri06/13/20 at 0751, Until Fri06/13/20 at 1309, Routine, Anesthesia Intraprocedure Rate Change 06/13/2020 11:43 EST 0.3 mcg/kg/min New Bag 06/13/2020 7:51 EST 0.4 mcg/kg/min documented in this encounter Additional Health Concerns [...] documented as of this encounter Care Teams Service Station Helper Relationship Specialty Start Date End Date Sera Gay FNP [address] [place] [address] PCP - General 09/02/13 10/31/22 documented as of this encounter
--- OUTSIDE RECORDS SUMMARY | 2023-12-18 00:14 | XMS_ITS | Encounter Summary ---
Author Organization [facility] Address [address] [place] [address] Care Team Providers Care Snuff Box Finisher Name Role Phone Sera GayP Primary Care Provider + Arabella Godinez EMPLOYMENT AND CLAIMS AIDE Primary Care Provider [phone] Encounter Details Date Type Department Care Team (Late st Contact Info) Description 07/18/2020 Lab Requisition [facility] Pathology & Laboratory Medicine - [facility] [address] [place], [place] [id number] Outr Resulting Lab, Provider Social History Tobacco [...] Priority Date/Time Associated Diagnosis Comments ZZCOVID-[address] [facility] PCR Today 07/18/2020 10:00 EDT COVID-19 TESTING Routine 07/18/2020 10:0 0 EDT documented in this encounter Results * [facility] (07/18/2020 10:00 EDT) Swab ENTIRE NASOPHARYNX / Unknown 07/18/2020 10:00 EDT 07/18/2020 16:59 EDT Provider Outr Resulting Lab MICROBIOLOGY - GENERAL ORDERABLES [facility] [address] [place] [address] * (ABNORMAL) COVID-19 TESTING (07/18/2020 10:00 EDT) COVID-19 rt-PCR Result Positive( AA) Negative 07/19/2020 14:29 EDT [facility] Comment: This test has [...] the authorization is terminated or revoked sooner. This test was developed and its performance characteristics determined by [facility]. It has not been cleared or approved by the US Food and Drug Administration. FDA does not require this test to go through premarket FDA review. This test is used for clinical purposes. It should not be regarded as investigational or for research. This laboratory is certified under the Clinical Laboratory Improvement Amendments (CLIA) as qualified to perform high complexity clinical laboratory testing. This test is based on the [facility] COVID-19 Emergency Use Authorization (EUA) assay, with minor modification as defined by the FDA Performed on the [employer] 7 Flex RT-PCR System. Performing Lab [facility] 07/19/2020 14:29 EDT [facility] Swab 07/18/2020 10:0 0 EDT 07/18/2020 16:59 EDT Provider Outr Resulting Lab MICROBIOLOGY - GENERAL ORDERABLES Performing Organization Address City/State/[facility] Co de Phone Number [facility] [address] [place] [address] documented in this encounter Visit Diagnoses Not [...] documented as of this encounter Care Teams Snuff Box Finisher Relationship Specialty Start Date End Date Sera Gay FNP [address] [place] [address] PCP - General 09/02/13 10/31/22 Arabella Godinez NP [address] [place] [address] PCP - General Family Medicine - Primary Care 11/01/22 documented as of this encounter
--- OUTSIDE RECORDS SUMMARY | 2023-12-18 00:14 | XMS_ITS | Encounter Summary ---
Author Organization [facility] Address [address] [place] [address] Care Team Providers Care Control Center Operator Name Role Phone Victor Hugo Sera Tommy STEINER Primary Care Provider + Reason for Visit * Reason Onset Date Comments Appointment Related 09/01/2020 Encounter Details Date Type Department Care Team (Late st Contact Info) Description 09/01/2020 Telephone [facility] Urology - [address] [address] Hao Rodríguez MD [address] [facility], [address] [place] [phone] Appointment Related Social History Tobacco Use Types [...] * Telephone Encounter - Beverley Powell - 09/01/2020 1203 EDT The renal ultrasound images and report have been pushed from [facility] radiology. * Telephone Encounter - Purvi Obrien - 09/01/2020 1130 EDT Confirmed Zoom appt with pt for Friday at 915am * Telephone Encounter - Veronica Sims - 09/01/2020 0803 EDT Pt cancelled her 09/04/20 2:15pm televideo appt with Dr. Rodríguez via [employer]. documented in this encounter Plan of Treatment [...] documented as of this encounter Care Teams Control Center Operator Relationship Specialty Start Date End Date Sera Gay FNP [address] [place] [address] PCP - General 09/02/13 10/31/22 documented as of this encounter
--- OUTSIDE RECORDS SUMMARY | 2023-12-18 00:14 | XMS_ITS | Encounter Summary ---
Author Organization [facility] Address [address] [place] [address] Care Team Providers Care Corn Grower Name Role Phone Victor Hugo Sera Tommy STEINER Primary Care Provider + Reason for Visit * Auth/Cert Specialty Diagnoses / Procedures Referred By Claudio quinteros Referred To Contact Diagnoses Ureteral stricture Procedures AL LAP,REIMPLANT URETER W/O CYSTO,STENT AL FULL THICK GRFT HEAD,FAC,HAND <20SQC AL CYSTOURETHROSCOPY,URETER CATHETER Cystoscopy, right retrograde pyelography, right robotic assisted laparoscopic ureteral repair with possible buccal mucosal graft . CYSTOSCOPY, WITH URETERAL CATHETER . Referral ID Status Reason Start Date Expiration Date Visits Re quested Visits Authorized [id number] 1 1 Encounter Details Date Type Department Care Team (Late st Contact Info) Description 06/13/2020 5:35 EST - 06/14/2020 15:16 EST Hospital Encounter [facility] Specialty Surgery Unit [address] [place] [address] Hao Rodríguez MD [address] [facility], [facility] [address] [place] [address] Nephrolithiasis (Primary Dx); Ureteral stricture, right; Ureteral stricture Discharge Disposition: Home-Health Care Svc Social History Tobacco Use Types Packs/Day Years [...] Sign Reading Time Taken Comments Blood Pressure 149/88 06/14/2020 1344 EST Pulse 82 06/14/2020 1000 EST Temperature 37.2 ??C (99 ??F) 06/14/2020 1344 EST Respiratory Rate 18 06/14/2020 1344 EST Oxygen Saturation 95% 06/14/2020 1344 EST Inhaled Oxygen Concentration - - Weight [...] Gale Chaidez PA-C - 06/13/2020 1256 EST [facility] Urologic Surgery Discharge Summary Primary Care Provider: JATIN House Attending Physician: Hao Rodríguez MD Admit Date: 06/13/2020 Discharge Date: 06/14/2020 Disposition: Home with home health Problems and Procedures Admitting Diagnosis: Right ureteral stricture Principal/Final Diagnosis: Right ureteral stricture Additional Problems Managed in the Hospital Active Hospital Problems Diagnosis Date Noted ??? *Ureteral stricture 05/29/2020 Added automatically from request for surgery [id number] Resolved Hospital Problems No resolved problems to [...] Visit with Hao Rodríguez MD, Cystoscopy Scope [facility] Urology - [facility] (--) [address] [place] [id number] Gale Chaidez PA-C 06/14/2020 13:49 documented in [...] to Call Your Doctor About: Please call [facility] urology for any questions Burning with urination, [...] 50 mg by mouth 2 times daily. komycap-veouwbsta-xevnjtsn dramine (MAGIC MOUTHWASH) Take 15 mL by mouth every 4 hours as needed for Pain. Swish and spit 120 mL 06/14/2020 naloxone (NARCAN) 4 mg/actuation nasal spray 1 [place] by nasal route as needed for Opioid [...] Dispensed Refills Start Date End Da te xvxpbtb-lkhfmzylt-grxsowvwe ramine (MAGIC MOUTHWASH) Take 15 mL by mouth every 4 hours as needed for Pain. Swish and spit 120 mL 06/14/2020 naloxone (NARCAN) 4 mg/actuation nasal spray 1 [place] by nasal route as needed for Opioid [...] Disposition Code Departure Means Destination Home-Health Care [facility] Home documented in this encounter Progress Notes * Matilda Fragoso - 06/14/2020 1257 EST TIE HACKER DISCHARGE NOTE: DISCHARGE DATE/TIME: Today, Wednesday 06/[address] OF DISCHARGE: home MODE OF TRANSPORT: is here in town waiting to bring [facility] home IM SIGNED (Y/): n/a FORMS ON CHART (Y/N): n/a ACCEPTING MD AND NUMBER: Sera Gay [phone] ALEXA REPORT/UNIT: Zulema/ Giancarlo for SN [phone] PATIENT AWARE AND IN AGREEMENT OF PLAN: yes FAMILY NOTIFIED (IF APPLICABLE- Y/N): yes per patient WEB CONSULTANT/CHARGE/MD NOTIFIED (Y/N): yes Perlita Fragoso RN CM #[id number] * Fany Gillis - 06/14/2020 1027 EST Initial Case Management/Social Work Assessment and Discharge Plan/Readmission Risk Assessment REASON FOR ADMISSION: Ureteral stricture Patient understands reason for admission: Yes(ureteral stricture) PATIENT INFO VERIFIED: PCP(Sera Gay) Type of housing (single family, condo, apartment, skilled nursing, single room occupancy, [facility] funded hotel room, group nursing home) - single family home Who does the [...] the patient? Spouse / significant other Is 24/7 care available? Yes ADVANCED DIRECTIVES, POA &/or COLST IN PLACE: Healthcare Directive: No, patient does not have advance directive for healthcare treatment Information Provided on Healthcare Directives: No Information on Healthcare Directives Requested: No DIRECTIVES FOR FINANCES: Directive For Finances: No TRANSPORTATION: Transportation: Family Transportation Additional Details: family will transport her Patient expects to be discharged to: home CULTURAL, SHINTO and/or LANGUAGE factors affecting health care/discharge planning: [...] Home Health Services: None DME Provider: Pharmacy: [id number] - [place], [place] - [address] [facility] [address] [facility] [address] [id number] - [place], [place] - [address] [facility] [address] Home Health: [facility] referral to [facility] Other: POST HOSPITAL TRANSITION PLAN: Patient was [...] prior to ride. Patient requests assistance from snf home health services following discharge. Otherwise, she identifies no needs and concerns related to discharge. FANY GILLIS 06/14/2020 10:27 SAFIA Pan Rn Utilization Management Um [phone] pager #[phone] * Isaiah Ruggiero MD - 06/14/2020 0703 [...] Chaidez PA-C 06/13/2020 6:46 Source Note - GREASE REFINING SUPERVISOR, NORMA 2 - 06/02/2020 14:45 EST documented [...] Tracey De La Rosa MD - 06/13/2020 0723 EST OPERATIVE REPORT SERVICE DATE: 06/13/2020 SURGEON: Tracey De La Rosa MD SUBSCRIPTION CLERK: None. PREOPERATIVE DIAGNOSIS: Right ureteral stricture. POSTOPERATIVE DIAGNOSIS: Right ureteral stricture. PROCEDURE: [place] of left buccal mucosal graft. 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 Given the length of the distance between [...] De La Rosa MD / LF Confirmation: [id number] Dictation ID: [id number] cc: * OR Surgeon - Hao Rodríguez [...] (will dictate the buccal mucosal harvest separately) SUBSCRIPTION CLERK: KELLY Sin, Boris Nguyen MD (Please note there was no charge [...] xiphoid and umbilicus. An 8 mm [employer] physical laboratory assistant port was placed midway between xiphoid [...] no drains retained. Hao Rodríguez MD / LH/PC Confirmation: [id number] Dictation ID: [id number] cc: documented in this encounter Miscellaneous Notes * Plan of Care - Ranjeet Evangelista RN - 06/14/2020 1457 EST Discharge Note D - Patient ordered for discharge today. A - Patient given prescriptions, medication information sheets and After Visit Summary. Medication list, follow up appointments and care instructions reviewed with patient. IVs and ID band removed. Called report to HH. R - Patient questions reviewed and addressed [...] for vision loss will be supported 06/14/2020 1457 by Ranjeet Evangelista RN Outcome: [...] 2:37 * Plan of Care - Mere Tlaley RN - 06/13/2020 1756 EST Admission Note D - This is [...] Gale Chaidez PA-C - 06/13/2020 1333 EST [facility] Urologic Surgery Brief Post-Op Note Date [...] 8:03 EDT) 08/29/2020 8:03 EDT Scan 2 Turkey Picker PROCEDURE/MINOR ELSA GICAL ORDERABLES * IMPLANT RECORD - SCANNED (08/28/2020 15:40 EDT) 08/28/2020 15:4 0 EDT Scan 2 Turkey Picker PROCEDURE/MINOR ELSA GICAL ORDERABLES * IMPLANT RECORD - SCANNED (06/19/2020 7:29 EST) 06/19/2020 7:29 EST Scan 2 Turkey Picker PROCEDURE/MINOR ELSA GICAL ORDERABLES * (ABNORMAL) POCT GLUCOSE, INTERFACED (06/14/2020 12:29 EST) Glucose, POC 107(H) 70 - 100 mg/dL 06/14/2020 12:30 EST [facility] mail order sorter ID [id number] 06/14/2020 12:30 EST [facility] HN LAB POC COMMENT (GLUCOSE) Test Performed by Nursing Services 06/14/2020 12:30 EST [facility] Blood CAPILLARY BLOOD / Unknown 06/14/2020 12:29 EST 06/14/2020 12:30 EST Gale Chaidez PA-C POINT OF CARE T EST ORDERABLES [facility] [address] [place] [address] * CREATININE, FLUID (06/14/2020 10:58 EST) Creatinine, Fluid 0.82 See Note mg/dL 06/14/2020 12:25 EST [facility] Comment: Peritoneal fluid. Reference range unavailable. Clinical correlation required. This Fluid Creatinine assay was developed and its performance characteristics determined by [facility]. ??It has not been cleared or approved by the US Food and Drug Administration. Fluid PERITONEAL FLUID / Unknown 06/14/2020 10:58 EST 06/14/2020 11:05 EST Gale Chaidez PA-C GEN LAB UNIT CO LLECT ORDERABLES [facility] [address] [place] [address] * POCT GLUCOSE, INTERFACED (06/14/2020 5:44 EST) Glucose, POC 100 70 - 100 mg/dL 06/14/2020 5:45 [facility] mail order sorter ID [id number] 06/14/2020 5:45 [facility] HN LAB POC COMMENT (GLUCOSE) Test Performed by Nursing Services 06/14/2020 5:45 [facility] Blood CAPILLARY BLOOD / Unknown 06/14/2020 5:44 EST 06/14/2020 5:45 EST Gale Chaidez PA-C POINT OF CARE T EST ORDERABLES Performing Organization Address City/[facility]/ZIP Co de Phone Number [facility] [address] [place] [address] * (ABNORMAL) GLUCOSE, SERUM (06/14/2020 3:19 EST) Glucose 114(H) 70 - 100 mg/dL 06/14/2020 4:10 [facility] Blood VENOUS BLOOD / Unknown Venipuncture / Unknown 06/14/2020 3:19 EST 06/14/2020 3:41 EST Gale MENDOZA-C CHEMISTRY & BLO OD GAS ORDERABLES [facility] [address] [place] [address] * CREATININE (06/14/2020 3:19 EST) Creatinine 0.80 0.52 - 1.04 mg/dL 06/14/2020 4:10 [facility] eGFR 87 >60 mL/min/1.7 3m2 06/14/2020 4:10 [facility] Comment:eGFR calculated kimberly grossman CKD-EPI equation for non- Americans. Multiply eGFR by 1.16 for patients. Blood VENOUS BLOOD / Unknown Venipuncture / Unknown 06/14/2020 3:19 EST 06/14/2020 3:41 EST Gale Beauchampfl PA-C CHEMISTRY & BLO OD GAS ORDERABLES Performing Organization Address City/[facility]/ZIP Co de Phone Number [facility] [address] [place] [address] * (ABNORMAL) BUN (06/14/2020 3:19 EST) BUN 9(L) 10 - 26 mg/dL 06/14/2020 4:10 EST [facility] Blood VENOUS BLOOD / Unknown Venipuncture / Unknown 06/14/2020 3:19 EST 06/14/2020 3:41 EST Gale BeauchampMarqui PA-C CHEMISTRY & BLO OD GAS ORDERABLES Performing Organization Address [facility] Phone Number [facility] [address] [place] [address] * ELECTROLYTES (06/14/2020 3:19 EST) Sodium 136 136 - 145 mEq/L 06/14/2020 4:10 [facility] Potassium 3.9 3.5 - 5.0 mEq/L 06/14/2020 4:10 [facility] Chloride 100 96 - 110 mEq/L 06/14/2020 4:10 [facility] CO2 Total 28 22 - 32 mEq/L 06/14/2020 4:10 [facility] Blood VENOUS BLOOD / Unknown Venipuncture / Unknown 06/14/2020 3:19 EST 06/14/2020 3:41 EST Gale Beauchampdc PA-C CHEMISTRY & BLO OD GAS ORDERABLES Performing Organization Address [facility] Co de Phone Number [facility] [address] [place] [address] * (ABNORMAL) COMPLETE BLOOD COUNT (06/14/2020 3:19 EST) WBC 9.66 4.00 - 12.40 K/cmm 06/14/2020 4:09 [facility] RBC 4.13 3.86 - 5.04 M/cmm 06/14/2020 4:09 [facility] Hemoglobin 12.3 11.6 - 15.2 gm/dL 06/14/2020 4:09 [facility] HCT 36.1 34.9 - 44.4 % 06/14/2020 4:09 [facility] MCV 87 81 - 98 fl 06/14/2020 4:09 [facility] MCH 29.8 26.7 - 33.3 pg 06/14/2020 4:09 [facility] MCHC 34.1 32.1 - 35.9 gm/dL 06/14/2020 4:09 [facility] RDW-CV 14.0 <14.7 % 06/14/2020 4:09 [facility] RDW-SD 44.4 <50.4 fl 06/14/2020 4:09 [facility] PLT 79(L) 141 - 377 K/cmm 06/14/2020 4:09 [facility] MPV 8.6(L) 9.5 - 12.7 fl 06/14/2020 4:09 [facility] Blood VENOUS BLOOD / Unknown Venipuncture / Unknown 06/14/2020 3:19 EST 06/14/2020 3:40 EST Gale Chaidez PA-C HEMATOLOGY & PF 4 ORDERABLES Performing Organization Address City/State/[facility] Co de Phone Number [facility] [address] [place] [address] * (ABNORMAL) POCT GLUCOSE, INTERFACED (06/14/2020 1:16 EST) Glucose, POC 117(H) 70 - 100 mg/dL 06/14/2020 1:17 [facility] mail order sorter ID [id number] 06/14/2020 1:17 [facility] HN LAB POC COMMENT (GLUCOSE) Test Performed by Nursing Services 06/14/2020 1:17 EST [facility] Blood CAPILLARY BLOOD / Unknown 06/14/2020 1:16 EST 06/14/2020 1:17 EST Gale Speedy Kaylynn PA-C POINT OF CARE T EST ORDERABLES Performing Organization Address City/[facility]/ZIP Co de Phone Number [facility] [address] [place] [address] * (ABNORMAL) POCT GLUCOSE, INTERFACED (06/13/2020 18:17 EST) Glucose, POC 119(H) 70 - 100 mg/dL 06/14/2020 0:27 EST [facility] mail order sorter ID [id number] 06/14/2020 0:27 EST [facility] HN LAB POC COMMENT (GLUCOSE) Test Performed by Nursing Services 06/14/2020 0:27 EST [facility] Blood CAPILLARY BLOOD / Unknown 06/13/2020 18:17 EST 06/14/2020 0:27 EST Gale Beauchampfl PA-C POINT OF CARE T EST ORDERABLES Performing Organization Address City/[facility]/ZIP Co de Phone Number [facility] [address] [place] [address] * (ABNORMAL) POCT GLUCOSE, INTERFACED (06/13/2020 13:33 EST) Glucose, POC 122(H) 70 - 100 mg/dL 06/13/2020 14:39 EST [facility] mail order sorter ID [id number] 06/13/2020 14:39 EST [facility] HN LAB POC COMMENT (GLUCOSE) Test Performed by Nursing Services 06/13/2020 14:39 EST [facility] Blood CAPILLARY BLOOD / Unknown 06/13/2020 13:33 EST 06/13/2020 14:39 EST Yifan Cartagena MD POINT OF CARE T EST ORDERABLES [facility] [address] [place] [phone] * XR ABDOMEN 1 VIEW (06/13/2020 12:48 EST) Narrative 06/15/2020 10:11 EST This is a non-reportable exam. Hao Rodríguez MD IMG DIAGNOSTIC IM AGING ORDERABLES * FL C-ARM RETROGRADE (06/13/2020 8:33 EST) Narrative 06/13/2020 8:34 EST This is a non-reportable exam. Hao Rodríguez MD IMG OTHER IMAGING ORDERABLES * TYPE AND SCREEN (06/13/2020 6:51 EST) [facility] ABO A 06/13/2020 7:39 EST [facility] Rh Factor Positive 06/13/2020 7:39 EST [facility] Antibody Screen Negative 06/13/2020 7:39 EST [facility] Specimen Expires: 06/16/2020 @ 23:59 06/13/2020 7:39 EST [facility] Blood VENOUS BLOOD / Unknown Venipuncture / Unknown 06/13/2020 6:51 EST 06/13/2020 7:07 EST Arnav Zepeda DO BLOOD BANK TESTS Performing Organization Address City/State/[facility] Co de Phone Number [facility] [address] [place] [address] * (ABNORMAL) POCT GLUCOSE, INTERFACED (06/13/2020 6:50 EST) Pathologist [facility] Glucose, POC 113(H) 70 - 100 mg/dL 06/13/2020 6:53 EST [facility] mail order sorter ID [id number] 06/13/2020 6:53 EST [facility] HN LAB POC COMMENT (GLUCOSE) Test Performed by Nursing Services 06/13/2020 6:53 EST [facility] Blood CAPILLARY BLOOD / Unknown 06/13/2020 6:50 EST 06/13/2020 6:53 EST Hao Rodríguez MD POINT OF CARE [place] T ORDERABLES [facility] [address] [place] [address] * ECG REPORT - SCANNED (06/02/2020 14:45 EST) 06/02/2020 14:4 5 EST Scan 2 Turkey Picker PROCEDURE/MINOR ELSA GICAL ORDERABLES documented in this [...] Given 06/13/2020 21:33 EST 2 5 mg ceFAZolin in dextrose (iso-os) piggyback 2 g/100 [...] mg Given 06/13/2020 16:32 EST 2,000 mg diphenhydrAMINE (BENADRYL) injection 12.5 mg 12.5 mg, [...] Routine Given 06/13/2020 20:21 EST 400 mg lactated ringers (LR) infusion 30 mL/hr, [...] 06/14/2020 2:00 EST 125 mL/hr 125 mL/hr metoprolol TARtrate (LOPRESSOR) tablet 75 mg 75 [...] on Fri06/13/20 at 2100, Until Discontinued, Routine 2132 (Given - Provider: Jun Mcintyre RN) ceFAZolin [...] apply): Surgical prophylaxis, ID Consult: No, Routine 163 (Given - Provider: Shawnee Yadav RN)2335 (Given [...] Ranjeet Evangelista, ALEXA)1340 (Given - Provider: Ranjeet Evangelista RN) heparin injection 5,000 Units (COMPLETED) 5,000 Units, subcutaneous, PRE-OP ONCE, 1 dose, On Fri06/13/20 at 0645, Routine, Preprocedure 0707 (Given - Provider: Odin Nguyen RN) heparin injection 5,000 Units 5,000 Units, subcutaneous, EVERY 8 HOURS, First dose on Fri06/13/20 at 1800, Until Discontinued, Routine 1813 (Given - Provider: Mere Talley RN) 0119 (Given - Provider: Abimbola Mota)0834 (Given - Provider: Ranjeet Evangelista RN)1600 (Canceled Entry - Provider: Batch Job User Admin - Comment: Automatically canceled at discontinue of medication order) insulin aspart U-100 (NOVOLOG FLEXPEN) injection subcutaneous, EVERY 6 HOURS, First dose on Fri06/13/20 at 1800, Until Discontinued, Routine, Indications: SUPPLEMENTAL INSULIN 181 (Not Given - Provider: Mere Talley RN [...] 1400 (New Bag - Provider: Shawnee Yadav, ALEXA)2134 (Completed - Provider: Jun Mcintyre, ALEXA - Comment: Pt on floor orders for LR dose) lactated ringers (LR) infusion 125 mL/hr, intravenous, CONTINUOUS, Starting on Fri06/13/20 at 1800, Until Fri06/14/20 at 1732, Routine 1812 (New Bag - Provider: Mere Talley, RN)2002 (Rate Documented - Provider: Jun cMintyre, RN)2313 (New Bag - Provider: Abimbola Mota) 0200 (Rate Documented - Provider: Jun Mcintyre, ALEXA)0429 (Rate Documented - Provider: Tosha French, ALEXA)0855 (New Bag - Provider: Ranjeet Evangelista RN) [...] Recovery (only) 1547 (Given - Provider: Shawnee Yadav RN) glucagon injection 1 mg 1 mg, intramuscular, [...] Pain, Routine 2020 (Given - Provider: Jun Mcintyre RN) indocyanine green (IC-GREEN) injection (CANCELED) As needed, [...] 0.1 mg/mL syringe 0.5 mg 1 021 bupivacaine (PF) (MARCAINE) 0.5% injection 1 06/13/2020 ceFAZolin (ANCEF) syringe 3 g 1 06/13/2020 ceFAZolin in dextrose (iso-o s) piggyback 2 g/100 mL (ANCEF) 2 gram/100 mL IVPB 1 06/13/2020 cellulose, oxidized 2 x 14 (SURGICEL) pad pad 1 06/13/2020 dextrose 50 % solution 12.5 [...] ) 0.5 mg/0.5 mL syringe 0.3-0.5 mg 06/13/2020 indocyanine green (IC-GREEN) injection 1 insulin aspart U-100 (NOVOLO G FLEXPEN) injection 1 06/13/2020 iohexoL (OMNIPAQUE 300) injection 1 021 lidocaine (PF) 10 mg/mL (1 % ) injection 2 mg 1 06/13/2020 lidocaine-EPINEPHrine 1 %-1: 100,000 injection 1 06/13/2020 naloxone (NARCAN) injection 0.2 mg [...] documented as of this encounter Care Teams Corn Grower Relationship Specialty Start Date End Date Sera Gay FNP [address] [place] [address] PCP - General 09/02/13 10/31/22 documented as of this encounter
--- OUTSIDE RECORDS SUMMARY | 2023-12-18 00:14 | XMS_ITS | Encounter Summary ---
Author Organization [facility] Address [address] [place] [address] Care Team Providers Care Diving Board Assembler Name Role Phone Victor Hugo Sera Tommy STEINER Primary Care Provider + Reason for Visit * Reason Onset Date Comments Appointment Related 08/31/2020 Encounter Details Date Type Department Care Team (Late st Contact Info) Description 08/31/2020 Telephone [facility] Urology - [address] [address] Hao Rodríguez MD [address] [facility], [address] [place] [phone] Appointment Related Social History Tobacco Use Types [...] * Telephone Encounter - Beverley Powell - 08/31/2020 1632 EDT Called and spoke to the patient, confirming her appt on September 04 at 9:15 am. She will have her Renal U/S done at [facility] on 09/01. This will be a ZOOM visit and the invitation has been sent. documented in this encounter Plan of Treatment [...] documented as of this encounter Care Teams Diving Board Assembler Relationship Specialty Start Date End Date Sera Gay FNP [address] [place] [address] PCP - General 09/02/13 10/31/22 documented as of this encounter
--- OUTSIDE RECORDS SUMMARY | 2023-12-18 00:14 | XMS_ITS | Encounter Summary ---
Author Organization [facility] Address [address] [place] [address] Care Team Providers Care Nursing Program Coordinator Name Role Phone Victor Hugo Sera STEINER Primary Care Provider + Encounter Details Date Type Department Care Team (Latest Contact Info) Description 06/07/2020 13:20 EST - 06/07/2020 23:59 EST Hospital Encounter [facility] Pre-Surgical Testing [address] [place] [address] Discharge Disposition: Home or Self Care Social [...] 13:22 EST documented as of this encounter Last Filed Vital Signs Vital Sign Reading Time Taken Comments Blood Pressure - - Pulse - - Temperature - - Respiratory Rate - - Oxygen Saturation - - Inhaled Oxygen Concentration - - Weight 115.2 kg (254 lb) 06/07/2020 1321 EST Height 163.8 cm (5' 4.5) 06/07/2020 1321 EST Body Mass Index 42.93 06/07/2020 1321 EST documented in this encounter Functional Status [...] 50 mg by mouth 2 times daily. qwrfbie-atngbxzko-gwtdqgip dramine (MAGIC MOUTHWASH) Take 15 mL by mouth every 4 hours as needed for Pain. Swish and spit 120 mL 06/14/2020 naloxone (NARCAN) 4 mg/actuation nasal spray 1 [place] by nasal route as needed for Opioid [...] hours as needed for Pain. 06/14/2020 11/27/2022 acetaminophen (TYLENOL) 325 mg tablet Take 2 Tabs by mouth every 4 hours as needed for Pain. 03/06/2016 06/14/2020 diclofenac (VOLTAREN) 50 mg EC tablet Take 1 Tab by mouth 2 times daily. 10 Tab 03/24/2018 06/13/2020 diclofenac (VOLTAREN) 50 mg EC tablet Take 1 Tab by mouth 2 times daily as needed for Pain. 10 Tab 03/17/2018 06/13/2020 HYDROmorphone (DILAUDID) 2 mg tablet Take 1 Tab by mouth every 8 hours as needed for up to 3 days for Pain. Daily Max: 6 mg 9 Tab 06/14/2020 06/17/2020 vancomycin (VANCOCIN) 125 mg capsule Take 1 Cap by mouth 4 times daily for 18 days. 72 Cap 05/25/2020 06/12/2020 documented as of this encounter Discharge Disposition Disposition Code Departure Means Destination Home or Self Care documented in this encounter OR Notes * Preprocedure Instructions - Sheila Fajardo, RN - 06/07/2020 1320 EST Blessing Ortiz has been instructed as follows regarding medication administration for the day of thescheduled procedure. Date of Surgery: 06-13-20 Instructions for Taking Medications Day of Surgery Medication Sig Last Dose Hold DOS Take DOS acetaminophen (TYLENOL) 325 mg tablet Take 2 Tabs by mouth every 4 hours as needed for Pain. prn Yes amitriptyline (ELAVIL) 25 mg tablet Take 25 mg by mouth daily. Yes clidinium-chlordiazepoxide (LIBRAX, WITH CLIDINIUM,) 5-2.5 mg per capsule Take 1 Cap by mouth 3 times daily. Yes diclofenac (VOLTAREN) 50 mg EC tablet Take 1 Tab by mouth 2 times daily. 06-07-20 diclofenac (VOLTAREN) 50 mg EC tablet Take 1 Tab by mouth 2 times daily as needed for Pain. 06-07-20 gabapentin (NEURONTIN) 400 mg capsule Take 400 mg by mouth 3 times daily. Yes METOPROLOL SUCCINATE ORAL Take 50 mg by mouth 2 times daily. Yes pantoprazole (PROTONIX) 40 mg tablet Take 40 mg by mouth daily. Yes phenazopyridine (PYRIDIUM) 200 mg tablet Take 1 Tab by mouth 3 times daily as needed for Pain. Yes piroxicam (FELDENE) 10 mg capsule Take 100 mg by mouth daily. Yes vancomycin (VANCOCIN) 125 mg capsule Take 1 Cap by mouth 4 times daily for 18 days. 06/12/20 Yes - documented in this encounter Plan of Treatment [...] documented as of this encounter Care Teams Nursing Program Coordinator Relationship Specialty Start Date End Date Sera Gay FNP [address] [place] [address] PCP - General 09/02/13 10/31/22 documented as of this encounter
--- OUTSIDE RECORDS SUMMARY | 2023-12-18 00:14 | XMS_ITS | Encounter Summary ---
Author Organization [facility] Address [address] [place] [address] Care Team Providers Care Certified Ophthalmic Technician Name Role Phone Sera Gay JATIN Primary Care Provider + Encounter Details Date Type Department Care Team (Latest Contact Info) Description 05/31/2020 Travel Social History Tobacco Use Types Packs/Day [...] have Coronavirus / COVID-19? No / Unsure 05/31/2020 15:29 EST documented as of this encounter Functional [...] documented as of this encounter Care Teams Certified Ophthalmic Technician Relationship Specialty Start Date End Date Sera Gay FNP [address] [place] [address] PCP - General 09/02/13 10/31/22 documented as of this encounter
--- OUTSIDE RECORDS SUMMARY | 2023-12-18 00:15 | XMS_ITS | Encounter Summary ---
Author Organization [facility] Address [address] [place] [address] Care Team Providers Care Lace Finisher Name Role Phone Sera Gay Tommy STEINER Primary Care Provider + Reason for Visit * Reason Onset Date Comments Appointment Related 12/06/2019 Encounter Details Date Type Department Care Team (Late st Contact Info) Description 12/06/2019 Telephone [facility] Urology - [facility] [address] [place] [address] Rajesh Ibarra MD [address] [place] [phone] Appointment Related Social History Tobacco Use Types Packs/Day Years Used Date Smoking Tobacco: Former Cigarettes 1 5 0 09/11/2003 - 09/10/2008 Smokeless Tobacco: Never Alcohol Use Standard Drinks/Week Comments No 0 (1 standard drink = 0.6 oz pur e alcohol) Interpersonal Safety Answer Date Record ed Physically [...] have Coronavirus / COVID-19? No / Unsure 12/06/2019 11:26 EDT documented as of this encounter Functional Status Functional Status Response Date of Assess ment Are you deaf or do you have serious difficulty h earing? No 02/29/2016 Are you blind or do you have serious difficulty seeing, even when wearing glasses? No 02/29/2016 Do you have serious difficul ty walking or climbing stairs? (5 years old or older) No 02/29/2016 Do you have difficulty dress ing or bathing? (5 years old or older) No 02/29/2016 Because of a physical, menta l, or emotional condition, does this person have difficulty doing errands alone such as visiting a doctor's office or shopping? Yes 03/24/2018 Cognitive Status Response Date of Assessm ent Because of a physical, menta l, or emotional condition, does this person have serious difficulty concentrating, remembering, or making decisions? No 01/27/2018 documented as of this encounter Miscellaneous Notes * Telephone Encounter - Patricia Meraz - 12/06/2019 1319 EDT Patient needs to set up a follow up appointment with Dr. Ibarra to go over the imaging she had done today. Patient lives 2 hours away, so if possible a tele med or zoom would be best. documented in this encounter Plan of Treatment [...] documented as of this encounter Care Teams Lace Finisher Relationship Specialty Start Date End Date Sera Gay FNP [address] [place] [address] PCP - General 09/02/13 10/31/22 documented as of this encounter
--- OUTSIDE RECORDS SUMMARY | 2023-12-18 00:15 | XMS_ITS | Encounter Summary ---
Author Organization [facility] Address [address] [place] [address] Care Team Providers Care Team Physician Name Role Phone Victor Hugo Sera STEINER Primary Care Provider + Reason for Visit * Reason Comments Nephrolithiasis Encounter Details Date Type Department Care Team (Late st Contact Info) Description 12/20/2019 15:30 EDT Procedure visit [facility] Urology - [facility] [address] [place] [address] Urology, Ultrasound Nephrolithiasis (Primary Dx) Social History Tobacco Use Types [...] have Coronavirus / COVID-19? 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
--- OUTSIDE RECORDS SUMMARY | 2023-12-18 00:15 | XMS_ITS | Encounter Summary ---
Author Organization [facility] Address [address] [place] [address] Care Team Providers Care Haunted History Tour Guide Name Role Phone Victor Hugo Sera Tommy STEINER Primary Care Provider + Encounter Details Date Type Department Care Team (Latest Contact Info) Description 05/22/2020 5:28 EST - 05/22/2020 7:22 EST Hospital Encounter [facility] [place] Discharge Disposition: Home [...] or suspected to have Coronavirus / COVID-19? Unable to assess 05/22/2020 4:01 EST documented as of this encounter Functional [...] tablet Take 1 Tablet by mouth daily. clidinium-chlordiazepoxi de (LIBRAX, WITH CLIDINIUM,) 5-2.5 mg per capsule Take 1 Cap by mouth 3 times daily. gabapentin (NEURONTIN) 400 mg capsule Take 1 Capsule by mouth 3 times daily. METOPROLOL SUCCINATE ORAL Take 50 mg by mouth 2 times daily. pantoprazole (PROTONIX) 40 mg tablet Take 1 Tablet by mouth daily. phenazopyridine (PYRIDIUM) 200 mg tablet Take 1 Tab by mouth 3 times daily as needed for Pain. 10 Tab 04/13/2018 piroxicam (FELDENE) 10 mg capsule Take 10 Capsules by mouth daily. acetaminophen (TYLENOL) 325 mg tablet Take 2 Tabs by mouth every 4 hours as needed for Pain. 03/06/2016 06/14/2020 cefpodoxime (VANTIN) 200 mg tablet Take 1 Tab by mouth every 12 hours. 8 Tab 12/10/2019 05/25/2020 cephalexin (KEFLEX) 500 mg capsule Take 1 Cap by mouth 3 times daily for 11 days. 33 Cap 05/25/2020 06/05/2020 diclofenac (VOLTAREN) 50 mg EC tablet Take 1 Tab by mouth 2 times daily. 10 Tab 03/24/2018 06/13/2020 diclofenac (VOLTAREN) 50 mg EC tablet Take 1 Tab by mouth 2 times daily as needed for Pain. 10 Tab 03/17/2018 06/13/2020 HYDROmorphone (DILAUDID) 2 mg tablet Take 1 Tab by mouth every 4 hours as needed for Pain. Daily Max: 12 mg 10 Tab 04/13/2018 05/25/2020 vancomycin (VANCOCIN) 125 mg capsule Take 1 [...] Diagnosis Comments CT OUTSIDE IMAGES BODY Routine 05/22/2020 5:28 EST documented in this encounter Results * CT OUTSIDE IMAGES BODY (05/22/2020 5:28 EST) Narrative 05/22/2020 5:28 EST This is a non-reportable exam. Provider Unknown [...] documented as of this encounter Care Teams Haunted History Tour Guide Relationship Specialty Start Date End Date Sera Gay FNP [address] [place] [address] PCP - General 09/02/13 10/31/22 documented as of this encounter
--- OUTSIDE RECORDS SUMMARY | 2023-12-18 00:15 | XMS_ITS | Encounter Summary ---
Author Organization [facility] Address [address] [place] [address] Care Team Providers Care Size Cutter Name Role Phone Victor HugoSera Tommy STEINER Primary Care Provider + Encounter Details Date Type Department Care Team (Latest Contact Info) Description 12/06/2019 Travel Social History Tobacco Use Types Packs/Day [...] No 01/27/2018 documented as of this encounter Plan of [...] documented as of this encounter Care Teams Size Cutter Relationship Specialty Start Date End Date Sera Gay FNP [address] [place] [address] PCP - General 09/02/13 10/31/22 documented as of this encounter
--- OUTSIDE RECORDS SUMMARY | 2023-12-18 00:15 | XMS_ITS | Encounter Summary ---
Author Organization [facility] Address [address] [place] [address] Care Team Providers Care Creosoting Engineer Name Role Phone Sera Gay Tommy STEINER Primary Care Provider + Reason for Visit * Reason Onset Date Comments Appointment Related 12/29/2019 Encounter Details Date Type Department Care Team (Late st Contact Info) Description 12/29/[address] [facility] Urology - [facility] [address] [place] [address] Rajesh Ibarra MD [address] [place] [phone] Appointment Related Social History Tobacco Use [...] encounter Miscellaneous Notes * Telephone Encounter - Jeimy Diggs - 01/06/2020 1234 EDT Sent appointment reminder out to patient * Telephone Encounter - Jeimy Diggs - 12/29/2019 1500 EDT Made call out to patient: advised for a 6mn fu and US by Ash. Left message for patient to call the office documented in this encounter Plan of Treatment [...] documented as of this encounter Care Teams Creosoting Engineer Relationship Specialty Start Date End Date Sera Gay FNP [address] [place] [address] PCP - General 09/02/13 10/31/22 documented as of this encounter
--- OUTSIDE RECORDS SUMMARY | 2023-12-18 00:15 | XMS_ITS | Encounter Summary ---
Author Organization [facility] Address [address] [place] [address] Care Team Providers Care Warehouse Distribution Associate Name Role Phone HollywoodSera Tommy STEINER Primary Care Provider + Reason for Visit * Reason Comments Post-OP Follow Up * Consult (48 Hrs (Urgent)) - Order Cancelled Specialty Diagnoses / Procedures Referred By Claudio quinteros Referred To Contact Urology Diagnoses Ureteral stricture, right Davon Beverly MD [address] [place] [address] [place] [address] [place] [id number] Referral ID Status Reason Start Date Expiration Date Visits Requested Visits Authorized [id number] Order Cancelled Specialty Services Required 05/23/2020 1 1 Encounter Details Date Type Department Care Team (Late st Contact Info) Description 05/29/2020 10:30 EST Office Visit [facility] Urology - [address] [id number] Hao Rodríguez MD [address] [place] [address], [address] [place] [address] Ureteral stricture (Primary Dx); Pre-op testing Social History Tobacco Use Types Packs/Day Years [...] have Coronavirus / COVID-19? No / Unsure 05/29/2020 10:05 EST documented as of this encounter Functional [...] No 05/22/2020 documented as of this encounter Patient Instructions * Patient Instructions* Noy Falcon - 05/29/2020 10:30 EST Surgery: Robotic ureteral repair Surgery Date: June 13, 2020 Arrival Time: You will receive a call 24-48 hours prior to surgery with your check in time. Pre-op Phone Call: Pre-op History & Physical: You will need to contact your PCP to schedule [facility] requires that a history and physical be completed within 30 days of surgery. It is encouraged that you schedule your history & physical with the first two weeks of the thirty days Blood work: CMP, CBC & urine culture need to be done at least 1 week prior to surgery COVID testing: You will receive a call to schedule a COVID test within the 5-7 days prior to surgery. Once you have this test done, you will need to quarantine at home until your surgery. You can reach the scheduling team at [phone]. PREP FOR SURGERY: Day Prior to surgery: 1) You can have a light breakfast and then clear liquids only the rest of the day. See clear liquidlist attached. 2) Bowel Prep: Magnesium citrate (10 oz bottle), drink the entire bottle at 4 pm. Day of surgery: 1) You can have only water or other fat free clear liquids until 3 hours before the scheduled time of your procedure. 2) Take medications as directed with small sips of water. If a medication must be taken with something other than clear liquids, please refer to the Preoperative Screening Clinic at [phone] for guidance. PLEASE CONTACT YOUR PRIMARY CARE DOCTOR FOR INSTRUCTIONS ON WHEN TO STOP ANY BLOOD THINNERS, MULTI VITAMINS CONTAINING VITAMIN E AND FISH OIL. DO NOT TAKE IBUPROFEN (ADVIL/MOTRIN) OR VITAMIN E 7-10 DAYS PRIOR TO SURGERY. YOU MAY TAKE TYLENOL. CLEAR LIQUID DIET JUICES: [place] - WITHOUT PULP Grapefruit - STRAINED Grape Other clear juices - EXCEPT RED Cesar Aid - EXCEPT RED Gatorade or other sports drinks SOUPS: (Day prior to surgery only) Clear soups - BROTHS Bouillon Clear tea - WITHOUT MILK, CREAM, CREMORA, OR SUGAR Water Popsicles - ALL FLAVORS - NO ICE CREAM, SHERBERT OR ICE MILK *NO RED* Soft Drinks/Soda JELLO: PLAIN - NOTHING ADDED (Day prior to surgery only) *NO RED JELLO* Lemon [place] ??? NO Hard Candies ??? NO GUM YOU MAY HAVE MUCH YOU WISH OF THE ABOVE LIST DO NOT DRINK ALCOHOLIC BEVERAGES documented in this encounter Progress Notes * Hao Rodríguez MD - 05/29/2020 1030 EST Ms. Ortiz is a 49-year-old woman who has a longstanding history of nephrolithiasis. She has had multiple stones requiring multiple procedures. She has had multiple right-sided ureteroscopy's and unfortunately has developed a proximal area of scarring within her ureter with at least 2 strictures inthe area immediately distal to her UPJ. The diseased section appears to be about 2 to 2-1/2 cm in length represented by 2 ringlike strictures. Unfortunately she has failed endoscopic treatment with balloon dilation etc. with Dr. Ibarra and has had ongoing pain. She recently had a stent placed byDr. Stacy for treatment of significant pain in his kidney. She did have a nuclear renal scan in November of this year which showed reasonable preservation of function about 33% of her function comingfrom the right kidney remaining 67% coming from her left kidney. Having failed and scopic treatment and remaining symptomatic, I think that she does warrant a more formal repair. We talked extensively about reconstructive options with the ureter. Certainly this location can be a bit tricky because it is too high for reimplant even with a long Boari flap. It is too low for a pyeloplasty. The ureteral section involved is quite long for a primary ureteroureterostomy. I think this would be quite amenable to a repair with buccal graft whether its excision with anaugmented anastomosis or an onlay graft. This would hopefully allow us to avoid more major reconstructive options such as a ileal ureter or autotransplant and would also help us to avoid nephrectomy.She understands risk of bleeding infection damage nearby structures recurrent obstruction urine leak etc. at this time we will go ahead and schedule her for right ureteral repair with buccal mucosal graft near future. documented in this encounter Plan of Treatment Not on file documented as of this encounter Procedures Procedure Name Priority Date/Time Associated Diagnosis Comments ORDERS - SCANNED 07/20/2020 16:3 7 EDT BACTERIAL CULTURE, URINE Routine 05/29/2020 13:03 EST Pre-op testing documented in this encounter Results * ORDERS - SCANNED (07/20/2020 16:37 EDT) 07/20/2020 16:3 7 EDT Scan 2 Truck Striker ADMISSION ORDERABLE S * BACTERIAL CULTURE, URINE (05/29/2020 13:03 EST) Organism ID Less than 10,000 CFU/ml Usual urogenital pedro. 05/30/2020 13:01 EST [facility] Urine URINE SPECIMEN COLLECTION, CLEAN CATCH / Unknown Urine Collect / Unknown 05/29/2020 13:03 EST 05/29/2020 13:40 EST Hao Rodríguez MD MICROBIOLOGY - [facility] ORDERABLES [facility] [address] [place] [address] documented in this encounter Visit Diagnoses Diagnosis Ureteral stricture- Primary Stricture or kinking of ureter Pre-op testing Preoperative examination, unspecified documented in this encounter Orders Case Request Count Last Ordered Date First Orde red Date CASE REQUEST OPERATING ROOM 1 05/29/2020 documented in this encounter Additional Health Concerns [...] documented as of this encounter Care Teams Warehouse Distribution Associate Relationship Specialty Start Date End Date Sera Gay FNP [address] [place] [address] PCP - General 09/02/13 10/31/22 documented as of this encounter
--- OUTSIDE RECORDS SUMMARY | 2023-12-18 00:15 | XMS_ITS | Encounter Summary ---
Author Organization [facility] Address [address] [place] [address] Care Team Providers Care Executive Producer Promos Name Role Phone Sera Gay Tommy STEINER Primary Care Provider + Reason for Visit * Reason Comments Follow-up Encounter Details Date Type Department Care Team (Latest Contact Info) Description 12/28/2019 9:00 EDT Telemedicine [facility] Urology - [address] [place] [address] [place] [address] Rajesh Ibarra MD [address] [place] [id number] Nephrolithiasis (Primary Dx) Social History Tobacco Use [...] as of this encounter Progress Notes * Rajesh Ibarra - 12/28/2019 0900 EDT Blessing is a 49-year-old female, and we were supposed to talk over video visit today; however, we havebeen unable to reach her. The ultrasound has been done and the interpretation will follow. The right kidney measures 12.0 cm with tiny echogenic foci noted but no definitive stones and, most importantly, there is no hydronephrosis. The left measures 12.4 cm with a 4.8 mm mid to lower pole nonobstructing stone and no hydronephrosis. We will follow up with Blessing to make sure she is doing well. As you recall, she has had a complex intervention on the right side with incision of 2 strictured areas back in 2018. She represented recently after an episode of pyelonephritis and imaging showing hydronephrosis. A renal scan showed no significant obstruction, fortunately, and this ultrasound was done mostly to ensure resolution of the hydronephrosis, which it does. Therefore, following her with repeat ultrasonography makes sense unless she becomes symptomatic again. 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
--- OUTSIDE RECORDS SUMMARY | 2023-12-18 00:15 | XMS_ITS | Encounter Summary ---
Author Organization [facility] Address [address] [place] [address] Care Team Providers Care Vehicle Painter Name Role Phone Sera Gay Tommy STEINER Primary Care Provider + Reason for Visit * Reason Comments Follow-up Encounter Details Date Type Department Care Team (Latest Contact Info) Description 12/10/2019 13:30 EDT Telemedicine [facility] Urology - [facility] [address] [place] [address] Rajesh Ibarra MD [address] [place] [phone] Hydronephrosis, unspecified hydronephrosis type (Primary Dx) Social History Tobacco Use Types [...] No 01/27/2018 documented as of this encounter Ordered Prescriptions Prescription Sig Dispensed Refills Start Date End Da te cefpodoxime (VANTIN) 200 mg tablet Take 1 Tab by mouth every 12 hours. 8 Tab 12/10/2019 05/25/2020 documented in this encounter Progress Notes * Rajesh Ibarra - 12/10/2019 1330 EDT FOLLOWUP VISIT This is a 49-year-old female with a history of right-sided endoscopic intervention. She has a history of bilateral stones, and on the right side, she was found to have 2 areas of stricture that were incised back in 2018. She did well for quite some time and recently developed a low-grade fever withright flank pain. She had repeat imaging that I reviewed with her on her last visit, which showed hydronephrosis and stranding. The hydronephrosis was moderate. She was treated with cefpodoxime and did better, although more recently is still feeling somewhat run down and is having some slight dysuria at the end of her emptying. I was concerned about obstruction of that kidney, possibly from recurrent stricture and started with a renal scan. The differential function was somewhat difficult to assess due to the lie of the kidneys, but overall there was mild delay of the right side but no significant obstruction. Specifically, the T half was 15 minutes on the right versus 9-1/2 minutes on the left. Since it is the weekend, I am going to call her in a few more days of the cefpodoxime just in case her symptoms do get worse. She is going to call her primary care physician to order a culture [place] in [place]. I would like to next make sure there has been resolution of the hydronephrosis, and we will begin with a renal ultrasound. If there are still signs of obstruction, she may either need a CT urogram or endoscopic evaluation of the ureter. I will see her back in the nearfuture. The concept of ?Telemedicine??? has been described to the patient.?? Patient has been informed of the anticipated benefits and possible risks.?? Patient understands the information provided regarding telemedicine, has had the opportunity to ask questions about this information, and all questions have been answered to patient?s satisfaction. Patient consents for the use of telemedicine in his/her medical care and authorizes the transmission of any relevant medical information to providersand their staff involved in patient?s medical or mental health care. TELEMEDICINE VIDEO VISIT Today's visit was provided through telemedicine video conferencing: The location of the patient : Home The location of the provider: Office The following staff and their role did participate in today's encounter visit: Rajesh Ibarra MD documented in this encounter Plan of Treatment Not on file documented as of this encounter Visit Diagnoses Diagnosis Hydronephrosis, unspecified hydronephrosis type- Primary documented in this encounter Orders Medications Ordered That John ht Not Have Been Administered Count Last Ordered Date First Ordered Date cefpodoxime (VANTIN) tablet 200 mg 1 2019 documented in this encounter Additional Health Concerns Infection Onset Date Last Indicated Resolved Time 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
--- OUTSIDE RECORDS SUMMARY | 2023-12-18 00:15 | XMS_ITS | Encounter Summary ---
Author Organization [facility] Address [address] [place] [address] Care Team Providers Care Vegetable Loader Name Role Phone Victor HugoSera Tommy STEINER Primary Care Provider + Encounter Details Date Type Department Care Team (Latest Contact Info) Description 12/20/2019 Travel Social History Tobacco Use Types Packs/Day [...] documented as of this encounter Care Teams Vegetable Loader Relationship Specialty Start Date End Date Sera Gay FNP [address] [place] [address] PCP - General 09/02/13 10/31/22 documented as of this encounter
--- OUTSIDE RECORDS SUMMARY | 2023-12-18 00:15 | XMS_ITS | Encounter Summary ---
Author Organization [facility] Address [address] [place] [address] Care Team Providers Care Vehicle Operator Name Role Phone Victor HugoSera Tommy STEINER Primary Care Provider + Reason for Visit * Reason Onset Date Comments Appointment Related 05/25/2020 Encounter Details Date Type Department Care Team (Late st Contact Info) Description 05/25/2020 Telephone [facility] Urology - [address] [address] Hao Rodríguez MD [address] [place] [address], [address] [place] [phone] Appointment Related Social History Tobacco Use Types [...] * Telephone Encounter - Beverley Powell - 05/25/2020 0957 EST Received a message from Dr Beverly to schedule this patient for a post-op visit. She is now scheduled for a follow up to discuss a possible ureteroureterostomy with Dr Rodríguez on May 29 at 10:30 am in the clinic. documented in this encounter Plan of Treatment [...] as of this encounter Care Teams Vehicle Operator Relationship Specialty Start Date End Date Sera Gay FNP [address] [place] [address] PCP - General 09/02/13 10/31/22 documented as of this encounter
--- OUTSIDE RECORDS SUMMARY | 2023-12-18 00:15 | XMS_ITS | Encounter Summary ---
Author Organization [facility] Address [address] [place] [address] Care Team Providers Care Computer Forensic Specialist Name Role Phone [place] Tommy STEINER Primary Care Provider + Reason for Visit * Reason Onset Date Comments Coordination Of Care 05/29/2020 confirming pre-op blood bank request Encounter Details Date Type Department Care Team (Late st Contact Info) Description 05/29/2020 Telephone [facility] Urology - [address] [phone] Hao Rodríguez MD [address] [facility], [address] [place] [phone] Coordination Of Care (confirming pre-op blood bank request) Social History Tobacco Use Types Packs/Day Years [...] encounter Miscellaneous Notes * Telephone Encounter - Amarilys Kolb RN - 05/30/[address] Rodríguez He's probably looking at the cystoscopy part, not the robotic part of the procedure. ??Would do pre-op preparations like a kidney surgery. Lab notified * Telephone Encounter - Jeanette Washington - 05/29/2020 1336 EST Reason for Call: Coordination Of Care (confirming pre-op blood bank request) Summary/Symptoms: Blood bank received pts pre-op bloodwork, [facility] states this isn't a procedure they typically see a blood bank request for. Please call to confirm request, either [phone] or [phone]. 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 difficile Comment:IP note: Per chart notes, diagnosed on approximately 05/15/20 at an outside facility. Yasmeen Petty, Infection Prevention, 05/24/2020 05/23/2020 05/23/2020 07/22/2020 22:15 EDT documented as of this encounter Care Teams Computer Forensic Specialist Relationship Specialty Start Date End Date Sera Gay FNP [address] [place] [address] PCP - General 09/02/13 10/31/22 documented as of this encounter
--- OUTSIDE RECORDS SUMMARY | 2023-12-18 00:15 | XMS_ITS | Encounter Summary ---
Author Organization [facility] Address [address] [place] [address] Care Team Providers Care Clinical Operations Specialist Name Role Phone Sera Gay JATIN Primary Care Provider + Encounter Details Date Type Department Care Team (Latest Contact Info) Description 05/22/2020 Travel Social History Tobacco Use Types Packs/Day [...] documented as of this encounter Care Teams Clinical Operations Specialist Relationship Specialty Start Date End Date Sera Gay FNP [address] [place] [address] PCP - General 09/02/13 10/31/22 documented as of this encounter
--- OUTSIDE RECORDS SUMMARY | 2023-12-18 00:15 | XMS_ITS | Encounter Summary ---
Author Organization [facility] Address [address] [place] [address] Care Team Providers Care Tie Fastener Name Role Phone Sera Gay JATIN Primary Care Provider + Encounter Details Date Type Department Care Team (Latest Contact Info) Description 05/29/2020 Travel Social History Tobacco Use Types Packs/Day [...] documented as of this encounter Care Teams Tie Fastener Relationship Specialty Start Date End Date Sera Gay FNP [address] [place] [address] PCP - General 09/02/13 10/31/22 documented as of this encounter
--- OUTSIDE RECORDS SUMMARY | 2023-12-18 00:15 | XMS_ITS | Encounter Summary ---
Author Organization [facility] Address [address] [place] [address] Care Team Providers Care Laborer [place] Name Role Phone Victor HugoSera Tommy STEINER Primary Care Provider + Reason for Visit * Reason Onset Date Comments Appointment Related 12/28/2019 Encounter Details Date Type Department Care Team (Late st Contact Info) Description 12/28/2019 Telephone [facility] Urology - [facility] [address] [place] [address] Rajesh Ibarra MD [address] [place] [phone] Appointment Related Social History Tobacco Use [...] encounter Miscellaneous Notes * Telephone Encounter - Ke Jara MA - 12/28/2019 0932 EDT Called patient on Home Phone and Mobile, Left messages. Patient had a 9:00 zoom, (I called at 9:04), stayed on zoom until 9:20. Asked patient to call if she needed help with zoom or needed to reschedule. KE JARA MA 12/28/2019 9:34 documented in this encounter Plan of Treatment [...] as of this encounter Care Teams Laborer [place] Relationship Specialty Start Date End Date Sera Gay FNP [address] [place] [address] PCP - General 09/02/13 10/31/22 documented as of this encounter
--- OUTSIDE RECORDS SUMMARY | 2023-12-18 00:15 | XMS_ITS | Encounter Summary ---
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 Covid (-) this morning. Recent positive Cdiff (1 week ago). * Auth/Cert Specialty Diagnoses / Procedures Referred By Claudio quinteros Referred To Contact Diagnoses renal obstruction Referral ID Status Reason Start Date Expiration Date Visits Re quested Visits Authorized [id number] 1 1 Encounter Details Date Type Department Care Team (Late st Contact Info) Description 05/22/2020 12:00 EST - 05/22/2020 13:00 EST Surgery [facility] OR [address] [place] [address] [id number] Tracey De La Rosa MD [address] [place] [address], [address] [place] [address] Cystoscopy, right ureteral double J stent insertion [61404 (CPT??)] Surgery Details Date/Time Status Location OR Service Patient Class Case Class Case Type Trauma Case? 05/22/20 1200 Posted [facility] OR [facility] 18 Urology Emergency B - Less than 1 hour Panel 1 Procedure LRB Anes Op Region Wound Class Comments Cystoscopy, right ureteral double J stent insertion Right Patient Choice Ureter Class II/ Clean Contaminated Surgeon Surgeon Role Service Panel Tracey De La Rosa MD Primary Urology 1 documented in this encounter Social [...] 4:01 EST documented as of this encounter Last Filed Vital Signs Vital Sign Reading Time Taken Comments Blood Pressure 118/79 05/22/2020 1000 EST Pulse 95 05/22/2020 0737 EST Temperature 36.4 ??C (97.6 ??F) 05/22/2020 0737 EST Respiratory Rate - - Oxygen Saturation 94% 05/22/2020 0900 EST Inhaled Oxygen Concentration - - Weight 113.4 kg (250 lb) 05/22/2020 0737 EST Height 165.1 cm (5' 5) 05/22/2020 0737 EST Body Mass Index 41.6 05/22/2020 1609 EST documented in this encounter Functional Status [...] Discharge Summaries * Gale Chaidez PA-C - 05/22/2020 1655 EST Images from the original note were not included. Surgery Discharge Summary Primary Care Provider: JATIN House Attending Physician: No att. providers found Admit Date: 05/22/2020 Discharge Date: 05/25/2020 Disposition: Home or self care Problems and Procedures Admitting Diagnosis: Right proximal ureteral stricture with hydronephrosis Principal/Final Diagnosis: Same Additional Problems Managed in the Hospital Active Hospital Problems Diagnosis Date Noted ??? *Hydronephrosis of right kidney 05/22/2020 Added automatically from request for surgery [id number] ??? Ureteral stricture, right 05/22/2020 Resolved Hospital Problems No resolved problems to display. Principal Procedure: Cystoscopy, right retrograde pyelogram, right ureteral double J stent insertion Date: 05/22/2020 Secondary Procedures: none Hospital Course Blessing Ortiz is a 49 y.o. female with history of nephrolithiasis status post multiple interventions last was right ureteroscopy on 03/2018 there was questionable proximal right ureteral stricture atthat time. She had known right hydronephrosis since then when she presented to the ED this morning with you right flank pain. CT renal colic showed right hydronephrosis without any obstructing calculi. Her urinalysis showed signs of urinary infection. Given her infection with right kidney obstruction, decision was made to take her urgently to the OR for decompression with a stent. Patient tolerated procedure well. Upon completion of procedure the patient was taken to PACU with an indwelling Ashby catheter. Once stable transferred to [place] [address] for her continuing care. Bacteria culture taken from kidney in OR had gram-positive cocci on smear but no growth. Urine culture from outside hospital was positive for pansensitive E. Coli. Patient was treated with p.o. and IV Vanco and ceftriaxone during her hospital course. She was then changed over to p.o. Keflex and Vanco (as patient was positivefor C. difficile prior to admission). Ashby catheter was removed postop day #1 and patient voided spontaneously. The patient was discharged home on May 25, 2020. Patient was afebrile, vital signsstable, diet tolerating diet, ambulating and pain controlled oral analgesics at time of discharge. The patient had an uncomplicated hospital course. Patient will follow-up with Dr. Rodríguez for discussion regarding ureteral stricture surgery. Allergies and Immunizations Allergies Allergen Reactions ??? Adhesive Tape allergy. Blister rash ??? Levaquin [Levofloxacin] Hives and Itching Immunization History Administered Date(s) Administered ??? Influenza Vaccine Quad (AFLURIA) PF 0.5 ml IM (3 yrs+) 03/06/2016 Transition of Care Plans Condition at Discharge Good or Improved Assessment at Discharge Vital signs: No data found. Results Pending at Discharge Test results still pending from this admission Procedure Component Value Units Date/Time Bacterial Culture/Smear, Other [[id number]] (Abnormal) Collected: 05/22/20 1228 Lab Status: Preliminary result Specimen: Fluid from Ureter Updated: 05/25/20 0740 Organism ID No Growth Smear Neutrophils Present Gram Positive Cocci Relevant Studies at Discharge None Last Lab Results at Discharge BUN: Lab Results Component Value Date BUN 11 05/25/2020 Creatinine: Lab Results Component Value Date CREATININE 0.80 05/25/2020 CBC: Lab Results Component Value Date WBC 6.54 05/25/2020 RBC 4.20 05/25/2020 HGB 12.7 05/25/2020 HCT 36.3 05/25/2020 MCV 86 05/25/2020 MCH 30.2 05/25/2020 MCHC 35.0 05/25/2020 PLT 122 (L) 05/25/2020 DIFFTYPE Manual 03/03/2016 Electrolytes: Lab Results Component Value Date NA 141 05/25/2020 K 3.9 05/25/2020 CL 101 05/25/2020 CO2 31 05/25/2020 Discharge Follow Up Upcoming Appointments May 29, 2020 10:30 Office Visit Medium with Hao Rodríguez MD [facility] Urology - [facility] (--) [address] [place] [id number] Gale Chaidez PA-C 05/26/2020 15:17 documented in this encounter Discharge Instructions * Discharge Instr - AVS First Page* Gale Chaidez PA-C - 05/25/2020 9:51 EST Diet: Resume preoperative diet Activity: No heavy lifting or strenuous exercise x 24 hours Driving: No driving for 24 hours No driving while taking narcotic pain medications Skin/Wound Care: Resume normal skin care. Bathing: Shower only Shower with soap and water daily. No showering for 24 hours Symptoms to Call Your Doctor About: Burning with urination, Chest pain, Dizziness, Increased blood in urine, Increased pain, Nausea or vomiting, Pain unrelieved by medication, Shortness of breath, Temperature greater than 101 degrees Fand Urinary retention What can I expect from having a ureteral stent? ?? Most individuals find that having a ureteral stent after surgery for kidney stones can be irritating but is nothing like the pain of having a kidney stone. Most are able to go back to work without restrictions. Patients usually described being able to ???feel?? the stent in place when bending, lifting or twisting. This is common. You may experience flank and groin pain from the stent. After the procedure, you will be prescribed a number of medications that may help with this pain. Some medications work better for stent pain in certain people than others, so it is important to find a regimen that works for you. It is important to keep taking [id number] Tylenol (acetaminophen) and ibupr ofen unless your doctor has recommended against taking these medications. ?? Because of how the stent sits in your bladder, it may cause feelings of having to urinate more thanyou usually do. There may be some mild burning with urination. It can also cause blood in the urine(hematuria). Blood in the urine is like food coloring: It only takes a few drops to make it look bright red. You may notice anywhere from light pink clear urine to something resembling Cesar- Aid. Thisis common and can be expected from the stent. Blood in the urine can go away and then come back spontaneously while the stent is in place. Increase the amount of water you are drinking and make sure you stay hydrated. Please call us if you start passing clots in your urine greater than a dime to quarter in size. ?? You may also notice pain in your flank when you urinate. This is because the stent allows urine to travel back up to the kidney and can cause kidney irritation. This will resolve when the stent is removed. ?? Irritation from the stent can persist even after the stent has been removed. This i because removalof the stent can cause temporary swelling of the tube (ureter) connecting the kidneys to the bladder. This usually resolves within 6 hours after the stent has been removed. If it continues please give us a call. ?? What are things to look out for? Please call us if you experience any of the following: ?? Urinary retention (no urination for >6 hours) ?? Fever greater than 101.5 F ?? Passing clots larger than a dime, or dark purple urine that resembles grape juice ?? Pain that is not controlled by medications provided Appointments: See Dr. Rodríguez in urology clinic [facility] Future Appointments Date Time Provider Department Center 05/29/2020 10:30 Hao Rodríguez MD [id number] Uro None Follow-up [...] hours as needed for Pain. 03/06/2016 06/14/2020 cephalexin (KEFLEX) 500 mg capsule Take 1 Cap by mouth 3 times daily for 11 days. 33 Cap 05/25/2020 06/05/2020 diclofenac (VOLTAREN) 50 mg EC tablet Take 1 Tab by mouth 2 times daily. 10 Tab 03/24/2018 06/13/2020 diclofenac (VOLTAREN) 50 mg EC tablet Take 1 Tab by mouth 2 times daily as needed for Pain. 10 Tab 03/17/2018 06/13/2020 vancomycin (VANCOCIN) 125 mg capsule Take 1 Cap by mouth 4 times daily for 18 days. 72 Cap 05/25/2020 06/12/2020 documented as of this encounter Ordered Prescriptions Prescription Sig Dispensed Refills Start Date End Da te vancomycin (VANCOCIN) 125 mg capsule Take 1 Cap by mouth 4 times daily for 18 days. 72 Cap 05/25/2020 06/12/2020 cephalexin (KEFLEX) 500 mg capsule Take 1 Cap by mouth 3 times daily for 11 days. 33 Cap 05/25/2020 06/05/2020 documented in this encounter Discharge Disposition Disposition Code Departure Means Destination Home or Self Jail documented in this encounter Progress Notes * Matilda Fragoso - 05/25/2020 1451 EST Case Management Note Pt is ready for d/c I tubed her Rxs to [facility] for Meds to Beds Blessing called her to come and get her. No indication for any HH or DME. Pt and team are in agreement with d/c plan. Blessing will f/u Outpatient with Urology. Perlita Fragoso RN CM #[id number] * Rajesh Ibarra - 05/25/2020 0801 EST Urology Progress Note Dx: R obstructed pyelo 2/2 proximal stricture POD # 3 s/p R ureteral stent 24 hour events: ??? Afebrile HDS ??? CANDACE on Subjective/Objective Subjective: Feels great today. R flank pain improved. Having BMs, tolerating diet. Walking well. Denies nausea/vomiting, subjective fevers/chills, and CP/SOB. Objective: Vitals Temp: [36.4 ??C (97.6 ??F)-37.1 ??C (98.8 ??F)] Heart Rate: [78 BPM-88 BPM] BP: (142-179)/(93-115) SpO2: [92 %-99 %] Intake/Output Summary (Last 24 hours) at 05/25/2020 0801 Last data filed at 05/25/2020 0505 Gross per 24 hour Intake 4246.66 ml Output 1850 ml Net 2396.66 ml Exam: Gen: NAD CV: HR 77 Resp: NL on RA Abdominal: Soft, non-distended, NTTP Back: no CVA tenderness : No ashby Extremities: WWP Labs Recent Labs 05/23/20 0402 05/24/20 0413 05/25/20 0415 WBC 7.46 7.74 6.54 HGB 11.9 12.8 12.7 PLT 111* 122* 122* CREATININE 0.88 0.81 0.80 Assessment/Plan Assessment: Pt is a 49 y.o. female with Hx of DM, IBS, HTN, nephrolithiasis who is POD2 from right ureteral stent placement. Pt with LEGAL PARAPROFESSIONAL CDiff Recovering appropriately at this time, GPC in urine here and GNRs in urine at [facility]. Plan: ??? Abx: vanc PO and IV, CTX ??? F/U Cx at [facility] ??? Diet: Cons Carb ??? Activity as tolerated ??? Encourage IS ??? Anticoagulation: Hep BID Dispo Planning ??? HOLLAND: Today ??? Follow up: will see Dr. Rodríguez in clinic to discuss ureteral stricture surgery Davon Beverly MD 05/25/2020 8:01 Weekdays from 7AM-5PM page [phone] with questions. For weekends and all other times, please page through PAS Attestation statement: I performed or was present during the ness or critical portions of the visit and participated in the management of the patient. I agree with the findings and plan of care documented in the resident's/fellow's note. * Rajesh Ibarra - 05/24/2020 0637 EST Urology Progress Note Dx: R obstructed pyelo 2/2 proximal stricture POD # 2 s/p R ureteral stent 24 hour events: ??? Afebrile HDS ??? Ashby removed, PVRs 106, 41 Subjective/Objective Subjective: Feels better today. R flank pain improved. Unclear if she wants to go home. Having BMs, tolerating diet. Walking well. Denies nausea/vomiting, subjective fevers/chills, and CP/SOB. Objective: Vitals Temp: [36.4 ??C (97.5 ??F)-36.6 ??C (97.9 ??F)] Heart Rate: [65 BPM-78 BPM] BP: (106-156)/(63-117) SpO2: [94 %-100 %] Intake/Output Summary (Last 24 hours) at 05/23/2020 0637 Last data filed at 05/23/2020 0600 Gross per 24 hour Intake 3452.14 ml Output 2750 ml Net 702.14 ml Exam: Gen: NAD CV: HR 77 Resp: NL on 1L NC Abdominal: Soft, non-distended, NTTP Back: no CVA tenderness : No ashby Extremities: WWP Labs Recent Labs 05/22/20204705/23/20 0402 WBC -- 7.46 HGB -- 11.9 PLT -- 111* CREATININE 0.93 0.88 Assessment/Plan Assessment: Pt is a 49 y.o. female with Hx of DM, IBS, HTN, nephrolithiasis who is POD1 from right ureteral stent placement. Pt with LEGAL PARAPROFESSIONAL CDiff Recovering appropriately at this time, GPC in urine here and GNRs in urine at [facility]. Plan: ??? Abx: vanc PO and IV, CTX ??? F/U Cx at [facility] ??? Diet: Cons Carb ??? Activity as tolerated ??? Encourage IS ??? Anticoagulation: Hep BID Dispo Planning ??? HOLLAND: 1-2 days ??? Follow up: will see Dr. Rodríguez in clinic to discuss ureteral stricture surgery No future appointments. BREE SHEPHERD MD 05/23/2020 6:37 Weekdays from 7AM-5PM page [phone] with questions. For weekends and all other times, please page through PAS Attestation statement: I performed or was present during the ness or critical portions of the visit and participated in the management of the patient. I agree with the findings and plan of care documented in the resident's/fellow's note. * Brenda Rodriguez, RN - 05/23/2020 2205 EST Blue slip to assess OSH PIV- IV flushes easily and has blood return. Pt states prefers to keep thisPIV- and will let her RN know if pain or other problems arise and they can put a blue slip In to have changed out. documented in this encounter H&P Notes * Davon Beverly MD - 05/22/2020 0946 EST Images from the original note were not included. [facility] Urologic Surgery Emergency Department Consult and H&P Note Admit Date: 05/22/2020 Date of Service: 05/22/2020 PCP: JATIN Huose Requesting Attending: Gus Schultz MD Specialty Completing Consult: Urologic Surgery Consulting Attending: Rajesh Ibarra MD Chief Complaint: Right flank pain Reason for Consult: Urology was asked to see Blessing at the request of Gus Schultz MD for evaluation of right flank pain. HPI: Blessing is a 49 y.o. female with PMHx of DM2, HTN, recurrent UTIs, nephrolithiasis s/p multiple interventions, last was right URS was on 03/2018, there was some questonable proximal right ureter stricture then that was passed by the scope. She's known to Dr. Ibarra and last followed up on 12/2019 with a renal US that showed: Right kidney measures 12.0 cm with tiny echogenic foci noted but no definitive stones and, there isno hydronephrosis.?? The left measures 12.4 cm with a 4.8 mm mid to lower pole nonobstructing stoneand no hydronephrosis. Of note, she did have a renal scan on 11/2019 that showed: Mild delay in washout from mildly dilated collecting system in the right kidney. 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 Time to peak (min): left kidney 4.5; right kidney 7.5 T 1/2 (min): left kidney 9.5; right kidney 15 Differential % split function cannot be adequately calculated due difference in positions of the kidneys. Patient presented this morning to [facility] with right flank pain that started yesterday night around 8 PM. She did not have any pain before that. Her pain got worse overnight and around2 AM, she decided to present to the emergency. Her pain radiates to the right upper quadrant, 10/10, sharp in nature. She denied any fever, chills, or vomiting. She did have some nausea. She denied any dysuria or lower urinary tract symptoms. Denied any hematuria. She did have C. difficile that wasdiagnosed about a week ago and she is currently on oral vancomycin. At [facility], patient had CT renal colic that showed right hydronephrosis without any obstructing calculi. Her urinalysis is was positive for nitrites moderate bacteria. Her WBC was 15.4. She received 1 g of IV ceftriaxone and transferred to [facility] for further care. Last time she ate was yesterday at 6 PM and she had some water on the way to the ED at 2 AM. Past Medical History: Diagnosis Date ??? Anxiety ??? Bacteremia 03/04/2016 ??? Calculus of kidney 02/29/2016 ??? Chills 03/04/2016 ??? Depression ??? Diabetes mellitus ([facility]) ??? Hypercholesteremia ??? Hypertension ??? IBS (irritable bowel syndrome) ??? Interstitial cystitis ??? Left flank pain 03/04/2016 ??? Nausea 03/04/2016 ??? Sepsis 03/04/2016 ??? UTI (urinary tract infection) 03/04/2016 Past Surgical History: Procedure Laterality Date ??? KNEE ARTHROSCOPY ??? OVARIAN CYST REMOVAL ??? PILONIDAL CYST EXCISION ??? TUBAL LIGATION Social History Tobacco Use ??? Smoking status: Former Smoker Packs/day: 1.00 Years: 5.00 Pack years: 5.00 Quit date: 09/10/2008 Years since quittin.7 ??? Smokeless tobacco: Never Used Substance Use Topics ??? Alcohol use: No Family History Problem Relation Age of Onset ??? Cancer Mother ??? Diabetes Mother ??? Cancer Father No current facility-administered medications on file prior to encounter. Current Outpatient Medications on File Prior to Encounter Medication Sig Dispense Refill ??? acetaminophen (TYLENOL) 325 mg tablet Take 2 Tabs by mouth every 4 hours as needed for Pain. ??? amitriptyline (ELAVIL) 25 mg tablet Take 25 mg by mouth daily. ??? cefpodoxime (VANTIN) 200 mg tablet Take 1 Tab by mouth every 12 hours. 8 Tab 0 ??? clidinium-chlordiazepoxide (LIBRAX, WITH CLIDINIUM,) 5-2.5 mg per capsule Take 1 Cap by mouth 3times daily. ??? diclofenac (VOLTAREN) 50 mg EC tablet Take 1 Tab by mouth 2 times daily. (Patient not taking: Reported on 04/17/2018) 10 Tab 0 ??? diclofenac (VOLTAREN) 50 mg EC tablet Take 1 Tab by mouth 2 times daily as needed for Pain. (Patient not taking: Reported on 04/17/2018) 10 Tab 0 ??? gabapentin (NEURONTIN) 400 mg capsule Take 400 mg by mouth 3 times daily. ??? HYDROmorphone (DILAUDID) 2 mg tablet Take 1 Tab by mouth every 4 hours as needed for Pain. Daily Max: 12 mg (Patient not taking: Reported on 08/25/2018) 10 Tab 0 ??? METOPROLOL SUCCINATE ORAL Take 25 mg by mouth 2 times daily. ??? pantoprazole (PROTONIX) 40 mg tablet Take 40 mg by mouth daily. ??? phenazopyridine (PYRIDIUM) 200 mg tablet Take 1 Tab by mouth 3 times daily as needed for Pain. (Patient not taking: Reported on 04/17/2018) 10 Tab 0 ??? piroxicam (FELDENE) 10 mg capsule Take 100 mg by mouth daily. Allergies Allergen Reactions ??? Adhesive Tape allergy. Blister rash ??? Levaquin [Levofloxacin] Hives and Itching Review of Systems: Pertinent items are noted in Subjective/HPI Objective/Physical Exam: Vital Signs: Patient Vitals for the past 8 hrs: BP Pulse Temp 05/22/20 0737 141/89 95 36.4 ??C (97.6 ??F) Weight: Weight : (!) 113.4 kg (250 lb) Height: Height: 165.1 cm (65) I and O: No intake/output data recorded. Gen: Alert, ill looking CVS: RRR Pulm: Normal effort, unlabored, CTAB Abd: Obese, soft, right abdominal tenderness Back: No right CVA tenderness. Genital: Deferred Musculoskeletal: No gross motor deficits Data Review: Labs from [facility]: Imaging: I have independently visualized the CT renal colic and reviewed the report stating: Impression: Blessing Ortiz is a 49 y.o. female with history of nephrolithiasis status post multiple interventions last was right ureteroscopy on 03/2018 there was questionable proximal right ureteral stricture at that time. She had known right hydronephrosis since then when she presented to the ED this morning with you right flank pain. CT renal colic showed right hydronephrosis without any obstructing calculi. Her urinalysis showed signs of urinary infection. Given her infection with right kidney obstruction, decision was made to take her urgently to the OR for decompression with a stent. Plan: -Booked and consented for right ureteral double-J stent insertion within 1 hour -Keep n.p.o. -1 more gram of IV ceftriaxone preop -Admission to urology postop -Follow-up urine culture from the OR and from [facility] Patient was discussed with attending supervisor insulation Dr. De La Rosa Thank you for consulting us in the care of Blessing Ortiz. We will, of course, continue to keep you informed of the patient's urological care and the results of our further evaluation. Davon Beverly MD 05/22/2020 9:47 Portions of this document may have been prepared with speech recognition software or keyboard database marketing analyst techniques. Minor irregularities or keyboarding misprints may be present. documented in this encounter OR Notes * OR Surgeon - Davon Beverly MD - 05/22/2020 0723 EST OPERATIVE REPORT SERVICE DATE: 05/22/2020 SURGEON: Tracey De La Rosa MD JEWELRY BENCH MOLDER: Davon Beverly MD PREOPERATIVE DIAGNOSIS: Right proximal ureteral stricture with hydronephrosis. POSTOPERATIVE DIAGNOSIS: Right proximal ureteral stricture with hydronephrosis. PROCEDURE: Cystoscopy, right retrograde pyelogram, right ureteral double-J stent insertion. ANESTHESIA: General. ESTIMATED BLOOD LOSS: Minimal. IV FLUIDS: Per anesthesia. URINE OUTPUT: Not measured during the case. SPECIMENS: None. CULTURES: Right kidney fluid. FOREIGN MATERIAL RETAINED: 4.7 right ureteral double-J stent and 16-Salvadorean Ashby catheter. COMPLICATIONS: None. DISPOSITION: PACU in good condition, then to the floor. INDICATIONS: Ms Ortiz is a 49-year-old female with history of nephrolithiasis, status post multiple interventions, last was a right ureteroscopy on 03/2018 and there was a questionable proximal right ureteral stricture at that time. She had known right hydronephrosis since then. She presented to the ED this morning with right flank pain. CT renal colic showed right hydronephrosis without any obstructing calculi. Her urinalysis showed signs of urine infection and given that she has an infectionwith obstruction, decision was made to take her urgently to the OR for decompression with a stent. Benefits and risks of the procedure were discussed with the patient who elected to proceed. NARRATIVE: Informed consent was obtained and the patient was brought to the operating room. The patient received 1 g of IV ceftriaxone preoperatively. The patient received general anesthesia and she was placed in the dorsal lithotomy position. External genitalia were prepped and draped in the usualsterile fashion. We began the procedure by introducing a 22.5 pediatric cystoscope through the urethra into the bladder. Check cystoscopy was done, which showed some cystitis cystica, but no tumors. Both ureteral orifices were identified in normal anatomical position. We then paid our attention to the right ureteral orifice and introduced a TigerTail catheter through the right orifice. We then introduced a Sensor wire through the ureteral catheter, advanced it all the way up to the right kidneyand confirmed placement by fluoroscopy. We then advanced the TigerTail catheter and we were able toadvance it all the way to the proximal ureter and then we had resistance there, so we stopped and we removed the Sensor wire then aspirated some urine and sent it for culture. We then pulled back theureteral catheter to the right distal ureter and injected contrast, which showed 2 very short narrowings in the right proximal ureter with around a centimeter in between that really did not fill withcontrast. We then reintroduced a Sensor wire and advanced it. We were able to advance it back to the kidney. We then did multiple images of the stricture with fluoroscopy and did save it. We then tried advancing a 6 x 26 ureteral double-J stent through the Sensor wire to the right kidney. However, this was met with resistance at the area of stricture. We were unable to place the stent, so we decided to try a 4.7 by a variable ureteral double J stent and this was met with resistance as well; buthowever, after multiple attempts with gentle pressure, we were finally able to pass the stent into the right kidney and confirm placement by fluoroscopy. Of note, we did place it with the cystoscope and that helped us gain some more support to push the stent into the right kidney. At the end of thecase, we emptied the bladder with the Ashby catheter. We also obtained some final fluoroscopic images to confirm a good placement of stent with 2 curls, 1 up in the kidney and 1 down in the bladder. Dr De La Rosa was present throughout the entire procedure. Unless otherwise noted, there were no complications, no blood loss, no cultures obtained, no specimens removed, and no drains retained. Tracey De La Rosa MD / Davon Beverly MD / LORETA/MARYLOU Confirmation: [id number] Dictation ID: [id number] cc: Associated attestation - Tracey De La Rosa MD - 05/25/2020 0946 EST Attending attestation: I was present during the entire procedure on 05/22/2020. Tracey De La Rosa MD documented in this encounter ED Notes * Christina Joya RN - 05/22/2020 1131 EST Pt transported to OR at this time. * Christina Joya RN - 05/22/2020 1126 EST Husbands phone number: [phone] * Kathryn Hoffman RN - 05/22/2020 0909 EST 0.5mg Dilaudid IV x 1 for increased abdl pain after assessment. * Gus Schultz MD - 05/22/2020 0820 EST This patient received an evaluation and medical screening exam for emergent medical conditions at the [facility] on 05/22/2020 Scribe attestation: This documentation is recorded by Chetna Bea acting as Scribe under the direction and presence of Gus Schultz MD. Gus Schultz MD: I personally performed the services recorded by the scribe in my presence. Iconfirm the scribe's documentation has been reviewed by me to accurately and completely record my work, treatment, procedures, and medical decision making. HPI Blessing Ortiz is a 49 y.o. female with PMH including recurrent UTI, multiple drug resistant organisms in 2016, sepsis, right nephrolithiasis, calculus of kidney, and bacteremia who presents to the EDfor right sided flank and abdominal pain. The patient arrives as a transfer from [facility] for urology consult. The patient reports she woke from sleep last night with right sided flank pain which radiates to her left flank as well as to her right abdomen. She describes the pain as occasionally sharp and occasionally dull. Blessing endorses nausea. At about 0300 this morning, she decided to present to [facility] where she had a CT scan showing persistent right flank hydronephrosis, right stranding related to obstruction, and pyelonephritis. The patient had UA showing 25-50 WBC, moderate bacteria, moderate epithelial cells, and positive nitrites. 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 The patient was transferred to [facility] ED from [place] after phone consultation with Dr. Al who recommended transfer if the patient appeared really sick. The patient was treated with ceftriaxone at [facility] prior to arrival. Of note, the patient complainsof abdominal pain and diarrhea, reporting she was recently diagnosed with c-diff 1 week ago. She denies any urinary symptoms including dysuria, hematuria, or urinary frequency. Blessing also denies vomiting, fever, or chills. History was provided by: Patient and medical records. Patient's pertinent PMH, FH, SH were reviewed and updated as needed. ROS As above noted in HPI, otherwise negative. Physical Exam Vital Signs Vitals Reassessment?: Yes Temp: 36.5 ??C (97.7 ??F) Temp src: Temporal Pulse: 95 Heart Rate: 76 BPM Cardiac Rhythm: Normal sinus rhythm Resp: 13 SpO2: 100 % BP: 138/81 BP MAP: 99 mm Hg BP Device: BP Machine BP Patient Position: Semi fowlers BP Cuff Location: Left arm O2 Device: Simple mask Nursing notes and vital signs were reviewed. Constitutional: Well appearing in no acute distress, pleasant, middle aged Abdomen: Soft, obese, diffuse right sided abdominal tenderness. There is right CVA tenderness. There is no left CVA tenderness. Heart: Regular rate and rhythm. Strong equal pulses in the upper extremities Lungs: No tachypnea, no increased work of breathing, no cough, no respiratory distress. Note: Auscultation of heart and lungs were not performed given risk of self- contamination. It has been widely determined that the risk of viral transmission outweighs the benefit of cardiopumonary physical exam during the COVID pandemic. Medical Decision Making The differential diagnosis for this patient includes but is not limited to: Hydronephrosis, UTI, sepsis Laboratory, Imaging, and Other Data Results Labs Reviewed COVID-19 TESTING BACTERIAL CULTURE/SMEAR NON CORE BLOWER OPERATOR/FNA CYTOLOGY Imaging Results None (All pertinent data was obtained, reviewed, and interpreted by me, contemporaneously with patient care. Radiology interpretation also reviewed, if available.) Procedures Procedures ED Course A medical screening exam was performed. Patient transferred from outside facility with newly diagnosed UTI and hydronephrosis noted on CT. No definite ureteral stone seen but does have bilateral intra renal stones. She has passed many stones in the past and has had chronic recurrent UTIs. Also recently diagnosed with C. difficile from her previous antibiotic use and currently on vancomycin only but not on any other antibiotics at this time. Complaining of right flank pain. Does have right CVA tenderness and right abdominal tenderness. I did review her work-up from the outside facility including her imaging. Findings are consistent with transfer diagnosis. I consulted with urology who is already expecting her and they saw her promptly. Should be taken to the operating room for intervention and further treatment. It is noted that she already received 1 g of ceftriaxone at the outside facility prior to transfer. She is admitted to urology in guarded condition. Clinical Impression Final diagnoses: Hydronephrosis of right kidney Pain Management While under my care in the Emergency Department, the patient's pain was managed to an adequate level weighing risk vs. benefit of medication. Disposition Condition at Discharge: Fair Pain level at discharge: 06/07 Disposition decisions were made weighing risks and benefits of hospitalization vs. outpatient treatment, the risk for further decompensation, and the patient's wishes. - If discharged: the patient was stable, improved, or requested discharge. Prior to discharge my usual and customary return precautions were reviewed with the patient and/or family. This included follow-up instructions and reasons to return to the Emergency Department if condition worsens, does notimprove as expected, or other new concerns arise. - If admitted: the patient???s condition was severe enough to require additional inpatient evaluation and treatment, or the patient was at risk of sudden decompensation. * Kathryn Hoffman RN - 05/22/2020 0788 EST Chief Complaint Patient presents with ??? Abdominal Pain Transfer from [facility] to be seen by urology for ongoing abdl pain r/t known hydronephrosis. Covid (-) this morning. Recent positive Cdiff (1 week ago). documented in this encounter Miscellaneous Notes * Plan of Care - Zulema Weaver RN - 05/25/2020 5679 EST Problem: Daily Care Plan Goals - Discharge Plan Goal: Care Plan Documentation - Pt will verbalize understanding of discharge instructions Outcome: Completed Discharge Note D - Pt is POD #3 s/p cystoscopy and R ureteral stent placement. AAOx3. VSS on RA. Pt ordered for discharge today. A - Discharge education completed with pt. Discussed med rec, follow up appointments, care instructions, and s/s to monitor for. New prescriptions called to [facility] outpatient pharmacy, pt to package pick up upon discharge from hospital. IV removed. All pt belongings collected and sent with pt, including AVS. R - Pt verbalized understanding of discharge instructions and stated she will follow up as instructed and take meds as prescribed. All questions answered. Pt discharged home. Declined wheelchair. Ambulated off unit in stable condition. 05/25/2020 17:19 ZULEMA WEAVER RN * Plan of Care - Lorene Walsh RN - 05/24/2020 2240 EST Data: Pt is POD 3 from cystoscopy and R uretal double J stent placement. Contact precautions for MDR-GNR and C diff. No tele, desats to high 80s to low 90s while sleeping. Does not report any pain. Ambulates independently to BR, voids clear yellow urine into hat. No BM this shift. Action: Meds administered per MAR. 1L NC applied while sleeping. Response: After applying oxygen, SpO2 remains >92%. Continues to deny pain. Plan is to determinebest cocktail of abx to eradicate C diff. Pt resting comfortably in bed. Will continue to monitor. LORENE WALSH RN 05/24/2020 22:40 * Pharmacy Note - Jose Savage [facility] - 05/24/2020 1557 EST Pharmacy Note: Vancomycin Monitoring Blessing Ortiz is a 49 y.o. y/o female who has been ordered to receive vancomycin 1,000mg IV q12hrs for the treatment of GPC renal fluid. 24 hour labs: BUN/SCr: 14 / 0.81 WBC: 7.74 Vancomycin steady state trough level drawn prior to the dose on 05/24 = 8.3 mcg/ml. Asssesment and Plan: 1) The goal vancomycin trough concentration range is 10-20 mcg/mL, which is consistent with the documented indication and/or most recent provider recommendation 2) The current vancomycin trough concentration is 8.3 mcg/mL which is below this range 3) Per the Pharmacy and Therapeutics Committee, will change vancomycin from 1000mg q12hrs to [id number]. The dosage regimen has been modified to achieve the goal trough concentration that is consistent with the documented indication and/or provider recommendation. 4) Pharmacy will repeat the vancomycin trough concentration on 05/26 or sooner if renal function changes. 5) Pharmacy will evaluate the next trough concentration 6) Continue to monitor renal function, CBC, in/out, and Tmax. JOSE SAVAGE RPH On cortext * Plan of Care - Rosibel Townsend RN - 05/24/2020 1333 EST Data: Pt POD 2 s/p cystoscopy and R uteteral double J stent. RA. New PIV placed. Voiding. Reports having BMs. C diff precautions. LR running @ 100 mL/hr. Ambulating independently. Action: Clarified w/ infection prevention about c diff precautions. Assessed and administered meds per orders (see Mar). Response: Pt resting comfortably in chair, declines additional needs at this time. Will continue tomonitor. ROSIBEL TOWNSEND RN 05/24/2020 13:33 * Plan of Care - Lorene Walsh RN - 05/24/2020 0035 EST Data: Pt is POD 2 from cystoscopy and R uretal double J stent placement. No tele, desats to high 80s to low 90s while sleeping. R AC PIV placed at OSH, got okay from APPIAN BPM DEVELOPER to use. Does not report anypain. Ambulates independently to BR, voids into hat. No BM this shift. Action: Meds administered per MAR. 1L NC administered while sleeping. LR running at 100 mL/hr. Response: After applying oxygen, SpO2 remains >92%. Continues to deny pain. Pt resting comfortably in bed. Will continue to monitor. LORENE WALSH RN 05/24/2020 0:35 * Plan of Care - Matilda Fragoso - 05/23/2020 1637 EST Initial Case Management/Social Work Assessment and Discharge Plan/Readmission Risk Assessment REASON FOR ADMISSION: Hydronephrosis of right kidney Patient understands reason for admission: Yes PATIENT CONTACT INFO VERIFIED: PATIENT ADDRESS VERIFIED: Yes LIVING ARRANGEMENTS AND ACCESSIBILITY ISSUES: Living Arrangements: Spouse / significant other, Children Levels: 1 Stairs to enter: 1 Handicap access: None Bathroom located on bedroom level?: Yes What in home social supports are available to the patient? Spouse / significant other, Children Is 24/7 care available? Yes ADVANCED DIRECTIVES, POA &/or COLST IN PLACE: Healthcare Directive: No, patient does not have advance directive for healthcare treatment Information Provided on Healthcare Directives: No Information on Healthcare Directives Requested: No DIRECTIVES FOR FINANCES: Directive For Finances: No TRANSPORTATION: Transportation: Family CULTURAL, JEWISH and/or LANGUAGE factors affecting health care/discharge planning: Spiritual/Cultural Requests: None Any factors affecting health care/discharge planning?: (P) No Insurance in Place: Yes Medical Insurance: Yes Type of insurance: Medicare Medicare type: A, B Referred to patient financial services: (P) No Nutrition: DISCHARGE RISK ASSESSMENT: Lives at home with limited or no community support Total # selected above: Score of 1 - 2: This patient is at LOW RISK for re-hospitalization Tentative plan to address the risk of re-hospitalization for those at HIGH MODERATE RISK: Bring risk factors to attention of team to be addressed RAPT TOOL: Patient expects to be discharged to: home SBIRT: SASQ (Single Alcohol Screening Question) How many times in the past year have you had 4 or more drinks in a single day?: (P) Never How many times in the past year have you used an illegal drug or used a prescription medication fornon-medical reasons?: (P) Never Intervention in place/initiated?: (P) No, not indicated FUNCTIONAL STATUS: Activities patient requires assistance: None Assistive Device: None COMMUNITY RESOURCES/SUPPORTS: Primary Care Provider: [facility] PCP Verified: Yes Specialists: Other(urology) Type of Home Health Services: None DME Provider: Pharmacy: [facility] - [place], [place] - [address] [facility] [address] [facility] [address] [facility] - [place], [place] - [address] [facility] [address] Home Health: Other: POST HOSPITAL TRANSITION PLAN: Patient came in through the ED with flank pain she has hydronephrosis of the right kidney with a history of UTIs. She went to the OR today and had a stent placed for ureteral stricture. She is doing well will likely be discharged to home tomorrow do not anticipate anyneeds for home health services. Blessing lives with her and children in [place]. She is independent at baseline family will pick her up when it's time for discharge MATILDA FRAGOSO 05/23/2020 16:37 * Plan of Care - Yasmeen Petty RN - 05/23/2020 9493 EST Patient has a history of a MDR-GNR infection (click on Inf: MDR-GNR in EPIC banner for details). Please maintain contact precautions for duration of admission. Do not cohort. Please call Infection Prevention with questions ([phone]). Addendum 05/24/20: Per chart notes pt was diagnosed with C difficile at an outside facility. Maintain contact precautions with soap and water handwashing until treatment is complete and Infection Prevention has reviewed case [id number]). Do not cohort. Yasmeen Petty, Infection Prevention, 05/24/2020 * Plan of Care - Tosin Mcdonnell RN - 05/23/2020 0007 EST Problem: Daily Care Plan Goals Goal: Care Plan Documentation 05/23/2020 000 by Tosin Mcdonnell RN Flowsheets (Taken 05/22/2020 192) Area of Focus: Circulatory Status Goal This Shift: Pt. willl be out of bed this shift Data: [id number]. Now POD#1 Cysto w/ R uretal double J stent placement. AxO. VSS. LR infusing per orders. Pt. Complaints of 2-6/10 this shift and minimal discomfort from ashby. Ashby w/ orange tinged output. Continuous O2 monitoring w/ sats maintained above 92%. Pt. tearful and verbalized anxiety r/t being away from family during hospital stay. Action: Medications provided as ordered. 1L NC applied at HS. PRN Pyridium and Tylenol administered, see MAR. Pt. OOB and ambulated in singletary w/ front wheel walker. Melatonin ordered for HS. I&O's in flowsheet. Hourly checks for safety. Response: Safety maintained this shift. Call antoine and personal items are within reach. [facility]. TOSIN MCDONNELL RN 05/23/2020 0:07 * Pharmacy Note - Mere Smalls RPH - 05/22/2020 6751 EST Pharmacy note: Vancomycin Monitoring - Initial Note Blessing Ortiz is a 49 y.o. y/o female who has been ordered to receive vancomycin 1750 mg IV q12H for the treatment of GPC in ureteral fluid. Other antibiotics include: ceftriaxone 24 hour vitals and labs: Tmax: 36.5 SCr: 0.93 1) Based on patient???s weight and estimated renal function, the initial order may produce a vancomycin AUC and trough concentration above the target range (808 and 22.4) 2) Per Pharmacy and therapeutics committee, will change vancomycin from 1750 mg q 12H to 1000 mg q12H to produce an expected AUC and trough of 462//12.8 3) Pharmacy will measure a vancomycin trough concentration on 27 AM 4) Pharmacy will continue to monitor patient clinical status daily and evaluate the trough concentration when result available Thank you, Mere Smalls PharmD * Brief Op Note - Davon Beverly MD - 05/22/2020 1256 EST BRIEF OP NOTE Surgeon: Amber De La Rosa MD Career Services Director: Davon Beverly MD Pre-op diagnosis: Right proximal ureteral stricture with hydronephrosis Post-op diagnosis: Same Procedure: Cystoscopy, right retrograde pyelogram, right ureteral double J stent insertion Anesth: General Findings: 2 proximal short ureteral strictures, was difficult to pass stent through the area, endedup using 4.7 stent and placed with some gentle pressure EBL: minimal IVF: per anesthesia UOP: Urine not measured during case Specimen: None Cultures: Right kidney fluid Foreign Material Retained: 4.7 x variable right ureteral double J stent, 16 Fr ashby Complications: None Dispo: PACU in Good condition, then to the floor. Davon Beverly MD 12:57 documented in this encounter Plan of Treatment Not on file documented as of this encounter Procedures Procedure Name Priority Date/Time Associated Diagnosis Comments IMPLANT RECORD - SCANNED 07/03/2020 8:20 EST IMPLANT RECORD - SCANNED 05/30/2020 7:28 EST POCT GLUCOSE, INTERFACED Routine 05/25/2020 12:11 EST POCT GLUCOSE, INTERFACED Routine 05/25/2020 9:00 EST COMPLETE BLOOD COUNT Routine 05/25/2020 4:15 EST BUN Routine 05/25/2020 4:15 EST CREATININE Routine 05/25/2020 4:15 EST ELECTROLYTES Routine 05/25/2020 4:15 EST POCT GLUCOSE, INTERFACED Routine 05/24/2020 20:59 EST POCT GLUCOSE, INTERFACED Routine 05/24/2020 18:07 EST POCT GLUCOSE, INTERFACED Routine 05/24/2020 16:36 EST POCT GLUCOSE, INTERFACED Routine 05/24/2020 12:30 EST VANCOMYCIN TROUGH Routine 05/24/2020 9:3 3 EST POCT GLUCOSE, INTERFACED Routine 05/24/2020 7:43 EST COMPLETE BLOOD COUNT Routine 05/24/2020 4:13 EST CREATININE Routine 05/24/2020 4:13 EST ELECTROLYTES Routine 05/24/2020 4:13 EST POCT GLUCOSE, INTERFACED Routine 05/23/2020 21:23 EST POCT GLUCOSE, INTERFACED Routine 05/23/2020 18:16 EST POCT GLUCOSE, INTERFACED Routine 05/23/2020 13:13 EST POCT GLUCOSE, INTERFACED Routine 05/23/2020 9:11 EST COMPLETE BLOOD COUNT Routine 05/23/2020 4:02 EST BUN Routine 05/23/2020 4:02 EST GLUCOSE, SERUM Routine 05/23/2020 4:02 EST CREATININE Routine 05/23/2020 4:02 EST ELECTROLYTES Routine 05/23/2020 4:02 EST VANCOMYCIN, RANDOM Routine 05/23/2020 1: 03 EST POCT GLUCOSE, INTERFACED Routine 05/22/2020 21:33 EST CREATININE STAT 05/22/2020 20:48 EST POCT GLUCOSE, INTERFACED Routine 05/22/2020 17:25 EST FL C-ARM RETROGRADE STAT 05/22/2020 1 2:54 EST BACTERIAL CULTURE/SMEAR Routine 05/22/2020 12:28 EST NON CORE BLOWER OPERATOR/FNA CYTOLOGY Routine 05/22/2020 12:28 EST CYSTOSCOPY, WITH URETERAL CATHETER INSERTION 05/22/2020 11:22 EST Hydronephrosis of right kidney CT OUTSIDE IMAGES BODY Routine 05/22/2020 5:28 EST documented in this encounter Results * IMPLANT RECORD - SCANNED (07/03/2020 8:20 EST) 07/03/2020 8:20 EST Scan 2 Warehouse Handler PROCEDURE/MINOR ELSA GICAL ORDERABLES * IMPLANT RECORD - SCANNED (05/30/2020 7:28 EST) 05/30/2020 7:28 EST Scan 2 Warehouse Handler PROCEDURE/MINOR ELSA GICAL ORDERABLES * (ABNORMAL) POCT GLUCOSE, INTERFACED (05/25/2020 12:11 EST) Glucose, POC 106(H) 70 - 100 mg/dL 05/25/2020 12:12 EST [facility] mold changer ID [id number] 05/25/2020 12:12 EST [facility] HN LAB POC COMMENT (GLUCOSE) Test Performed by Nursing Services 05/25/2020 12:12 EST [facility] Blood CAPILLARY BLOOD / Unknown 05/25/2020 12:11 EST 05/25/2020 12:11 EST Davon Beverly MD POINT OF CARE TEST O RDERABLES [facility] [address] [place] [address] * (ABNORMAL) POCT GLUCOSE, INTERFACED (05/25/2020 9:00 EST) Glucose, POC 123(H) 70 - 100 mg/dL 05/25/2020 12:21 EST [facility] mold changer ID [id number] 05/25/2020 12:21 EST [facility] HN LAB POC COMMENT (GLUCOSE) Test Performed by Nursing Services 05/25/2020 12:21 EST [facility] Blood CAPILLARY BLOOD / Unknown 05/25/2020 9:00 EST 05/25/2020 12:21 EST Davon Beverly MD POINT OF CARE TEST O RDERABLES Performing Organization Address City/[facility] Co de Phone Number [facility] [address] [place] [address] * BUN (05/25/2020 4:15 EST) BUN 11 10 - 26 mg/dL 05/25/2020 5:11 EST [facility] Blood VENOUS BLOOD / Unknown Venipuncture / Unknown 05/25/2020 4:15 EST 05/25/2020 4:44 EST Boris Nguyen MD CHEMISTRY & BLOOD G ORDERABLES Performing Organization Address [facility] Phone Number [facility] [address] [place] [address] * ELECTROLYTES (05/25/2020 4:15 EST) Sodium 141 136 - 145 mEq/L 05/25/2020 5:11 [facility] Potassium 3.9 3.5 - 5.0 mEq/L 05/25/2020 5:11 [facility] Chloride 101 96 - 110 mEq/L 05/25/2020 5:11 [facility] CO2 Total 31 22 - 32 mEq/L 05/25/2020 5:11 [facility] Blood VENOUS BLOOD / Unknown Venipuncture / Unknown 05/25/2020 4:15 EST 05/25/2020 4:44 EST Boris Nguyen MD CHEMISTRY & BLOOD G ORDERABLES Performing Organization Address [facility] Co de Phone Number [facility] [address] [place] [address] * (ABNORMAL) COMPLETE BLOOD COUNT (05/25/2020 4:15 EST) WBC 6.54 4.00 - 12.40 K/cmm 05/25/2020 4:36 [facility] RBC 4.20 3.86 - 5.04 M/cmm 05/25/2020 4:36 [facility] Hemoglobin 12.7 11.6 - 15.2 gm/dL 05/25/2020 4:36 [facility] HCT 36.3 34.9 - 44.4 % 05/25/2020 4:36 [facility] MCV 86 81 - 98 fl 05/25/2020 4:36 [facility] MCH 30.2 26.7 - 33.3 pg 05/25/2020 4:36 [facility] MCHC 35.0 32.1 - 35.9 gm/dL 05/25/2020 4:36 [facility] RDW-CV 13.5 <14.7 % 05/25/2020 4:36 [facility] RDW-SD 41.2 <50.4 fl 05/25/2020 4:36 [facility] PLT 122(L) 141 - 377 K/cmm 05/25/2020 4:36 [facility] MPV 8.3(L) 9.5 - 12.7 fl 05/25/2020 4:36 [facility] Blood VENOUS BLOOD / Unknown Venipuncture / Unknown 05/25/2020 4:15 EST 05/25/2020 4:27 EST Boris Nguyen MD HEMATOLOGY & PF4 OR DERABLES [facility] [address] [place] [address] * CREATININE (05/25/2020 4:15 EST) Creatinine 0.80 0.52 - 1.04 mg/dL 05/25/2020 5:11 [facility] eGFR 87 >60 mL/min/1.7 3m2 05/25/2020 5:11 [facility] Comment:eGFR calculated usin g CKD-EPI equation for non- Americans. Multiply eGFR by 1.16 for patients. Blood VENOUS BLOOD / Unknown Venipuncture / Unknown 05/25/2020 4:15 EST 05/25/2020 4:44 EST Boris Nguyen MD CHEMISTRY & BLOOD G ORDERABLES Performing Organization Address City/[facility]/ZIP Co de Phone Number [facility] [address] [place] [address] * (ABNORMAL) POCT GLUCOSE, INTERFACED (05/24/2020 20:59 EST) Glucose, POC 139(H) 70 - 100 mg/dL 05/24/2020 21:00 EST [facility] mold changer ID [id number] 05/24/2020 21:00 EST [facility] HN LAB POC COMMENT (GLUCOSE) Test Performed by Nursing Services 05/24/2020 21:00 EST [facility] Blood CAPILLARY BLOOD / Unknown 05/24/2020 20:59 EST 05/24/2020 21:00 EST Rajesh Ibarra MD POINT OF CARE TEST ORDERABLES Performing Organization Address [facility] Co de Phone Number [facility] [address] [place] [address] * POCT GLUCOSE, INTERFACED (05/24/2020 18:07 EST) Glucose, POC 98 70 - 100 mg/dL 05/24/2020 18:08 EST [facility] mold changer ID [id number] 05/24/2020 18:08 EST [facility] HN LAB POC COMMENT (GLUCOSE) Test Performed by Nursing Services 05/24/2020 18:08 EST [facility] Blood CAPILLARY BLOOD / Unknown 05/24/2020 18:07 EST 05/24/2020 18:08 EST Davon Beverly MD POINT OF CARE TEST O RDERABLES Performing Organization Address City/[facility]/ZIP Co de Phone Number [facility] [address] [place] [address] * (ABNORMAL) POCT GLUCOSE, INTERFACED (05/24/2020 16:36 EST) Glucose, POC 125(H) 70 - 100 mg/dL 05/24/2020 16:37 EST [facility] mold changer ID [id number] 05/24/2020 16:37 EST [facility] HN LAB POC COMMENT (GLUCOSE) Test Performed by Nursing Services 05/24/2020 16:37 [facility] Blood CAPILLARY BLOOD / Unknown 05/24/2020 16:36 EST 05/24/2020 16:37 EST Davon Beverly MD POINT OF CARE TEST O RDERABLES Performing Organization Address City/[facility]/ZIP Co de Phone Number [facility] [address] [place] [address] * POCT GLUCOSE, INTERFACED (05/24/2020 12:30 EST) Glucose, POC 93 70 - 100 mg/dL 05/24/2020 12:30 [facility] mold changer ID [id number] 05/24/2020 12:30 [facility] HN LAB POC COMMENT (GLUCOSE) Test Performed by Nursing Services 05/24/2020 12:30 [facility] Blood CAPILLARY BLOOD / Unknown 05/24/2020 12:30 EST 05/24/2020 12:30 EST Davon Beverly MD POINT OF CARE TEST O RDERABLES Performing Organization Address City/[facility]/ZIP Co de Phone Number [facility] [address] [place] [address] * (ABNORMAL) VANCOMYCIN TROUGH (05/24/2020 9:33 EST) Vancomycin Trough 8.3(L) 10.0 - 20.0 ug/mlL 05/24/2020 11:40 [facility] Draw Type Peripheral Draw 05/24/2020 11:40 [facility] Blood VENOUS BLOOD / Unknown Venipuncture / Unknown 05/24/2020 9:33 EST 05/24/2020 10:42 EST Rajesh Ibarra MD CHEMISTRY & B LOOD GAS ORDERABLES [facility] [address] [place] [address] * (ABNORMAL) POCT GLUCOSE, INTERFACED (05/24/2020 7:43 EST) Glucose, POC 102(H) 70 - 100 mg/dL 05/24/2020 7:43 EST [facility] mold changer ID [id number] 05/24/2020 7:43 EST [facility] HN LAB POC COMMENT (GLUCOSE) Test Performed by Nursing Services 05/24/2020 7:43 EST [facility] Blood CAPILLARY BLOOD / Unknown 05/24/2020 7:43 EST 05/24/2020 7:43 EST Davon Beverly MD POINT OF CARE TEST O RDERABLES Performing Organization Address [facility] Co de Phone Number [facility] [address] [place] [address] * CREATININE (05/24/2020 4:13 EST) Creatinine 0.81 0.52 - 1.04 mg/dL 05/24/2020 4:49 EST [facility] eGFR 86 >60 mL/min/1.7 3m2 05/24/2020 4:49 EST [facility] Comment:eGFR calculated uswayne g CKD-EPI equation for non- Americans. Multiply eGFR by 1.16 for patients. Blood VENOUS BLOOD / Unknown Venipuncture / Unknown 05/24/2020 4:13 EST 05/24/2020 4:21 EST Davon Beverly MD CHEMISTRY & BLOOD GA S ORDERABLES Performing Organization Address City/[facility]/ZIP Co de Phone Number [facility] [address] [place] [address] * ELECTROLYTES (05/24/2020 4:13 EST) Sodium 139 136 - 145 mEq/L 05/24/2020 4:49 [facility] Potassium 4.1 3.5 - 5.0 mEq/L 05/24/2020 4:49 [facility] Chloride 101 96 - 110 mEq/L 05/24/2020 4:49 [facility] CO2 Total 27 22 - 32 mEq/L 05/24/2020 4:49 [facility] Blood VENOUS BLOOD / Unknown Venipuncture / Unknown 05/24/2020 4:13 EST 05/24/2020 4:21 EST Davon Beverly MD CHEMISTRY & BLOOD GA S ORDERABLES Performing Organization Address City/State/[facility] Co de Phone Number [facility] [address] [place] [address] * (ABNORMAL) COMPLETE BLOOD COUNT (05/24/2020 4:13 EST) WBC 7.74 4.00 - 12.40 K/cmm 05/24/2020 4:30 [facility] RBC 4.17 3.86 - 5.04 M/cmm 05/24/2020 4:30 [facility] Hemoglobin 12.8 11.6 - 15.2 gm/dL 05/24/2020 4:30 [facility] HCT 36.5 34.9 - 44.4 % 05/24/2020 4:30 [facility] MCV 88 81 - 98 fl 05/24/2020 4:30 [facility] MCH 30.7 26.7 - 33.3 pg 05/24/2020 4:30 [facility] MCHC 35.1 32.1 - 35.9 gm/dL 05/24/2020 4:30 [facility] RDW-CV 13.8 <14.7 % 05/24/2020 4:30 [facility] RDW-SD 42.9 <50.4 fl 05/24/2020 4:30 [facility] PLT 122(L) 141 - 377 K/cmm 05/24/2020 4:30 [facility] MPV 8.4(L) 9.5 - 12.7 fl 05/24/2020 4:30 [facility] Blood VENOUS BLOOD / Unknown Venipuncture / Unknown 05/24/2020 4:13 EST 05/24/2020 4:19 EST Davon Beverly MD HEMATOLOGY & PF4 ORD ERABLES Performing Organization Address City/[facility]/ZIP Co de Phone Number [facility] [address] [place] [address] * (ABNORMAL) POCT GLUCOSE, INTERFACED (05/23/2020 21:23 EST) Glucose, POC 126(H) 70 - 100 mg/dL 05/23/2020 21:24 [facility] mold changer ID [id number] 05/23/2020 21:24 [facility] HN LAB POC COMMENT (GLUCOSE) Test Performed by Nursing Services 05/23/2020 21:24 [facility] Blood CAPILLARY BLOOD / Unknown 05/23/2020 21:23 EST 05/23/2020 21:24 EST Davon Beverly MD POINT OF CARE TEST O RDERABLES Performing Organization Address City/[facility]/ZIP Co de Phone Number [facility] [address] [place] [address] * POCT GLUCOSE, INTERFACED (05/23/2020 18:16 EST) Glucose, POC 87 70 - 100 mg/dL 05/23/2020 21:24 [facility] mold changer ID [id number] 05/23/2020 21:24 [facility] HN LAB POC COMMENT (GLUCOSE) Test Performed by Nursing Services 05/23/2020 21:24 [facility] Blood CAPILLARY BLOOD / Unknown 05/23/2020 18:16 EST 05/23/2020 21:24 EST Davon Beverly MD POINT OF CARE TEST O RDERABLES [facility] [address] [place] [address] * (ABNORMAL) POCT GLUCOSE, INTERFACED (05/23/2020 13:13 EST) Glucose, POC 105(H) 70 - 100 mg/dL 05/23/2020 13:18 EST [facility] mold changer ID [id number] 05/23/2020 13:18 EST [facility] HN LAB POC COMMENT (GLUCOSE) Test Performed by Nursing Services 05/23/2020 13:18 EST [facility] Blood CAPILLARY BLOOD / Unknown 05/23/2020 13:13 EST 05/23/2020 13:17 EST Davon Beverly MD POINT OF CARE TEST O RDERABLES [facility] [address] [place] [address] * (ABNORMAL) POCT GLUCOSE, INTERFACED (05/23/2020 9:11 EST) Glucose, POC 112(H) 70 - 100 mg/dL 05/23/2020 9:14 EST [facility] mold changer ID [id number] 05/23/2020 9:14 EST [facility] HN LAB POC COMMENT (GLUCOSE) Test Performed by Nursing Services 05/23/2020 9:14 EST [facility] Blood CAPILLARY BLOOD / Unknown 05/23/2020 9:11 EST 05/23/2020 9:14 EST Davon Beverly MD POINT OF CARE TEST O RDERABLES [facility] [address] [place] [address] * (ABNORMAL) GLUCOSE, SERUM (05/23/2020 4:02 EST) Glucose 104(H) 70 - 100 mg/dL 05/23/2020 4:43 EST [facility] Blood VENOUS BLOOD / Unknown Venipuncture / Unknown 05/23/2020 4:02 EST 05/23/2020 4:06 EST Davon Beverly MD CHEMISTRY & BLOOD GA S ORDERABLES [facility] [address] [place] [address] * CREATININE (05/23/2020 4:02 EST) Creatinine 0.88 0.52 - 1.04 mg/dL 05/23/2020 4:43 EST [facility] eGFR 78 >60 mL/min/1.7 3m2 05/23/2020 4:43 EST [facility] Comment:eGFR calculated kimberly g CKD-EPI equation for non- Americans. Multiply eGFR by 1.16 for patients. Blood VENOUS BLOOD / Unknown Venipuncture / Unknown 05/23/2020 4:02 EST 05/23/2020 4:06 EST Davon Beverly MD CHEMISTRY & BLOOD GA S ORDERABLES Performing Organization Address City/[facility]/ZIP Co de Phone Number [facility] [address] [place] [address] * BUN (05/23/2020 4:02 EST) BUN 14 10 - 26 mg/dL 05/23/2020 4:43 EST [facility] Blood VENOUS BLOOD / Unknown Venipuncture / Unknown 05/23/2020 4:02 EST 05/23/2020 4:06 EST aDvon Beverly MD CHEMISTRY & BLOOD GA S ORDERABLES [facility] [address] [place] [address] * ELECTROLYTES (05/23/2020 4:02 EST) Sodium 138 136 - 145 mEq/L 05/23/2020 4:43 [facility] Potassium 4.3 3.5 - 5.0 mEq/L 05/23/2020 4:43 [facility] Chloride 103 96 - 110 mEq/L 05/23/2020 4:43 [facility] CO2 Total 26 22 - 32 mEq/L 05/23/2020 4:43 [facility] Blood VENOUS BLOOD / Unknown Venipuncture / Unknown 05/23/2020 4:02 EST 05/23/2020 4:06 EST Davon Beverly MD CHEMISTRY & BLOOD GA S ORDERABLES Performing Organization Address City/State/[facility] Co de Phone Number [facility] [address] [place] [address] * (ABNORMAL) COMPLETE BLOOD COUNT (05/23/2020 4:02 EST) WBC 7.46 4.00 - 12.40 K/cmm 05/23/2020 4:14 [facility] RBC 4.06 3.86 - 5.04 M/cmm 05/23/2020 4:14 [facility] Hemoglobin 11.9 11.6 - 15.2 gm/dL 05/23/2020 4:14 [facility] HCT 35.8 34.9 - 44.4 % 05/23/2020 4:14 [facility] MCV 88 81 - 98 fl 05/23/2020 4:14 [facility] MCH 29.3 26.7 - 33.3 pg 05/23/2020 4:14 [facility] MCHC 33.2 32.1 - 35.9 gm/dL 05/23/2020 4:14 [facility] RDW-CV 14.0 <14.7 % 05/23/2020 4:14 [facility] RDW-SD 44.9 <50.4 fl 05/23/2020 4:14 [facility] PLT 111(L) 141 - 377 K/cmm 05/23/2020 4:14 EST [facility] MPV 8.6(L) 9.5 - 12.7 fl 05/23/2020 4:14 EST [facility] Blood VENOUS BLOOD / Unknown Venipuncture / Unknown 05/23/2020 4:02 EST 05/23/2020 4:07 EST Davon Beverly MD HEMATOLOGY & PF4 ORD ERABLES Performing Organization Address City/[facility] Co de Phone Number [facility] [address] [place] [address] * VANCOMYCIN, RANDOM (05/23/2020 1:03 EST) Pathologist [facility] Vancomycin Random 12.3 See Note ug/mL 05/23/2020 1:42 EST [facility] Comment: NOTE: Reference Ranges: Trough: ??10.0 - 20.0 ug/mL Peak: ??25.0 - 50.0 ug/mL Blood VENOUS BLOOD / Unknown Venipuncture / Unknown 05/23/2020 1:03 EST 05/23/2020 1:13 EST Rajesh Ibarra MD CHEMISTRY & B LOOD GAS ORDERABLES Performing Organization Address [facility] de Phone Number [facility] [address] [place] [address] * POCT GLUCOSE, INTERFACED (05/22/2020 21:33 EST) Glucose, POC 95 70 - 100 mg/dL 05/22/2020 21:34 EST [facility] mold changer ID [id number] 05/22/2020 21:34 EST [facility] HN LAB POC COMMENT (GLUCOSE) Test Performed by Nursing Services 05/22/2020 21:34 EST [facility] Blood CAPILLARY BLOOD / Unknown 05/22/2020 21:33 EST 05/22/2020 21:34 EST Davon Beverly MD POINT OF CARE TEST O RDERABLES Performing Organization Address City/[facility]/ZIP Co de Phone Number [facility] [address] [place] [address] * CREATININE (05/22/2020 20:48 EST) Creatinine 0.93 0.52 - 1.04 mg/dL 05/22/2020 21:18 EST [facility] eGFR 73 >60 mL/min/1.7 3m2 05/22/2020 21:18 EST [facility] Comment:eGFR calculated kimberly grossman CKD-EPI equation for non- Americans. Multiply eGFR by 1.16 for patients. Blood VENOUS BLOOD / Unknown Venipuncture / Unknown 05/22/2020 20:48 EST 05/22/2020 21:00 EST Boris Nguyen MD CHEMISTRY & BLOOD G ORDERABLES Performing Organization Address [facility] Co de Phone Number [facility] [address] [place] [address] * POCT GLUCOSE, INTERFACED (05/22/2020 17:25 EST) Glucose, POC 86 70 - 100 mg/dL 05/22/2020 17:26 EST [facility] mold changer ID [id number] 05/22/2020 17:26 EST [facility] HN LAB POC COMMENT (GLUCOSE) Test Performed by Nursing Services 05/22/2020 17:26 EST [facility] Blood CAPILLARY BLOOD / Unknown 05/22/2020 17:25 EST 05/22/2020 17:26 EST Davon Beverly MD POINT OF CARE TEST O RDERABLES Performing Organization Address [facility]/ZIP Co de Phone Number [facility] [address] [place] [address] * FL C-ARM RETROGRADE (05/22/2020 12:54 EST) Narrative 05/22/2020 13:10 EST This is a non-reportable exam. Tracey De La Rosa MD IMG OTHER IMAGING OR DERABLES * (ABNORMAL) BACTERIAL CULTURE/SMEAR (05/22/2020 12:28 EST) Organism ID No Growth 05/27/2020 8:52 [facility] Smear Neutrophils Present(A) 05/27/2020 8:52 [facility] Smear Gram Positive Cocci(A) 05/27/2020 8:52 [facility] Comment:Results reviewed by supervisory staff. Fluid ENTIRE URETER / Unknown 05/22/2020 12:28 EST 05/22/2020 13:03 EST Tracey De La Rosa MD MICROBIOLOGY - GENER AL ORDERABLES [facility] [address] [place] [address] * NON CORE BLOWER OPERATOR/FNA CYTOLOGY (05/22/2020 12:28 EST) Final Diagnosis URINE, VOIDED, CYTOLOGIC EVALUATION: - Negative for high grade urothelial carcinoma. - Low volume of specimen submitted (1 cm). See comment. - Background contains acute inflammation and scattered red blood cells. 05/23/2020 12:33 [facility] Diagnosis Comment Based on literature, volumes less than 25 ml have been associated with lower detection rate of high grade urothelial carcinoma in voided urine. A repeat urine sample may be indicated. 05/23/2020 12:33 [facility] Attestation By the signature below, the attending physician certifies that they have personally conducted a gross and/or microscopic examination of the described specimens and rendered or confirmed the above diagnosis. 05/23/2020 12:33 [facility] at 1233 Clinical History See order requisition. 05/23/2020 12:33 [facility] Gross Description A. 1cc of clear yellow fluid was received and processed by selective cellular enhancement technique. 05/23/2020 12:33 [facility] Performing Lab [facility] 05/23/2020 12:33 EST [facility] Scanned Images 05/23/2020 12:33 EST [facility] Fluid VOIDED URINE SPECIMEN / Unknown 05/22/2020 12:28 EST 05/22/2020 14:32 EST Tracey De La Rosa MD PATHOLOGY ORDERABLES [facility] [address] [place] [address] * CT OUTSIDE IMAGES BODY (05/22/2020 5:28 EST) Narrative 05/22/2020 5:28 EST This is a non-reportable exam. Provider Unknown MD SANTOS OTHER IMAGING OR DERABLES documented in this encounter Visit Diagnoses Diagnosis Hydronephrosis of right kidney- Primary Hydronephrosis Hydronephrosis of right kidney Hydronephrosis Ureteral stricture, right Stricture or kinking of ureter Hydronephrosis of right kidney Hydronephrosis documented in this encounter Admitting Diagnoses Diagnosis Hydronephrosis of right kidney Hydronephrosis documented in this encounter Administered Medications Inactive Administered Medications - up to 3 most recent administrations Medication Order MAR Action Action Date Dose Rate Site acetaminophen (TYLENOL) suppository 650 mg 650 mg, rectal, EVERY 4 HOURS PRN, Starting on Fri05/22/20 at 1635, Until Danette 05/25/20 at 1919, Pain, Routine acetaminophen (TYLENOL) tablet 650 mg 650 mg, oral, EVERY 4 HOURS PRN, Starting on Fri05/22/20 at 1635, Until Danette 05/25/20 at 1919, Pain, Routine Given 05/22/2020 21:34 EST 650 mg amitriptyline (ELAVIL) tablet 25 mg 25 mg, oral, DAILY, First dose on Fri05/22/20 at 1700, Until Discontinued, Routine Given 05/25/2020 8:51 EST 25 mg Given 05/24/2020 9:49 EST 25 mg Given 05/23/2020 8:15 EST 25 mg cephalexin (KEFLEX) capsule 500 mg 500 mg, oral, 2 TIMES DAILY, 14 doses, First dose on Fri05/24/20 at 2100, Last dose on Fri05/31/20 at 0900, Routine Given 05/25/2020 8:51 EST 500 mg Given 05/24/2020 21:01 EST 500 mg diclofenac (VOLTAREN) EC tablet 50 mg 50 mg, oral, 2 TIMES DAILY, First dose on Fri05/22/20 at 2100, Until Discontinued, Routine Given 05/25/2020 8:51 EST 50 mg Given 05/24/2020 21:01 EST 50 mg Given 05/24/2020 9:49 EST 50 mg docusate sodium (COLACE) capsule 100 mg 100 mg, oral, 2 TIMES DAILY, First dose on Fri05/22/20 at 2100, Until Discontinued, Routine Given 05/23/2020 8:12 EST 10 0 mg Given 05/22/2020 21:35 EST 100 mg gabapentin (NEURONTIN) capsule 400 mg 400 mg, oral, 3 TIMES DAILY, First dose on Fri05/22/20 at 1700, Until Discontinued, Routine Given 05/25/2020 14:53 EST 4 00 mg Given 05/25/2020 8:51 EST 400 mg Given 05/24/2020 21:01 EST 400 mg heparin injection 5,000 Units 5,000 Units, subcutaneous, EVERY 12 HOURS, First dose on Fri05/22/20 at 2100, Until Discontinued, Routine Given 05/25/2020 8:52 EST 5,000 Units Given 05/24/2020 21:01 EST 5,000 Units Given 05/24/2020 9:49 EST 5,000 Units melatonin tablet 5 mg 5 mg, oral, AT BEDTIME, First dose on Fri05/22/20 at 2100, Until Discontinued, Routine Given 05/24/2020 21:01 EST 5 mg Given 05/23/2020 21:25 EST 5 mg Given 05/22/2020 21:35 EST 5 mg metoprolol SUCCinate (TOPROL-XL) tablet 25 mg 25 mg, oral, 2 TIMES DAILY, First dose on Fri05/22/20 at 2100, Until Discontinued Given 05/25/2020 8:51 EST 25 mg Given 05/24/2020 21:03 EST 25 mg Given 05/24/2020 9:49 EST 25 mg ondansetron (PF) (ZOFRAN) injection 4 mg 4 mg, intravenous, EVERY 4 HOURS PRN, Starting on Fri05/22/20 at 1635, Until Fri05/25/20 at 1919, Nausea, Routine ondansetron (ZOFRAN-ODT) disintegrating tablet 4 mg 4 mg, oral, EVERY 4 HOURS PRN, Starting on Fri05/22/20 at 1635, Until Fri05/25/20 at 1919, Nausea, Routine pantoprazole (PROTONIX) tablet 40 mg 40 mg, oral, DAILY, First dose on Fri05/22/20 at 1700, Until Discontinued, Routine Given 05/25/2020 8:51 EST 40 mg Given 05/24/2020 9:49 EST 40 mg Given 05/23/2020 8:14 EST 40 mg phenazopyridine (PYRIDIUM) tablet 200 mg 200 mg, oral, 3 TIMES DAILY PRN, 9 doses, Starting on Fri05/22/20 at 1316, Until Fri05/25/20 at 1919, Pain, Routine Given 05/22/2020 19:36 EST 200 mg Given 05/22/2020 13:25 EST 200 mg promethazine (PHENERGAN) suppository 12.5 mg 12.5 mg, rectal, EVERY 6 HOURS PRN, Starting on Fri05/22/20 at 1635, Until Fri05/25/20 at 1919, Nausea, Routine promethazine (PHENERGAN) tablet 12.5 mg 12.5 mg, oral, EVERY 6 HOURS PRN, Starting on Fri05/22/20 at 1635, Until Fri05/25/20 at 1919, Nausea, Routine sodium chloride (NS) 0.9 % 50 mL with iohexoL (OMNIPAQUE 300) 50 mL As needed, Starting on Fri05/22/20 at 1220, Until Fri05/22/20 at 1258, Routine, Intraprocedure Given 05/22/2020 12:20 EST 10 mL Other sodium chloride 0.9 % irrigation As needed, Starting on Fri05/22/20 at 1223, Until Fri05/22/20 at 1259, Routine, Intraprocedure Given 05/22/2020 12:23 EST 1,000 mL vancomycin (VANCOCIN) 1,250 mg in dextrose 5% (D5W) 250 mL IVPB 1,250 mg, intravenous, Administer over 75 Minutes, EVERY 12 HOURS, 14 doses, First dose (after last reorder) on Fri05/24/20 at 2145, Last dose on Fri05/31/20 at 0945, Type of Therapy: Definitive, Based on Cultures, Suspected Indication (Select all that apply): Other, Other Indication: gram positive cocci renal fluid, ID Consult: No, Routine Given 05/25/2020 8:52 EST 1,250 mg Given 05/24/2020 21:00 EST 1,250 mg vancomycin (VANCOCIN) capsule 125 mg 125 mg, oral, 4 TIMES DAILY, 16 doses, First dose on Fri05/22/20 at 1700, Last dose on Fri05/26/20 at 1200, Type of Therapy: Definitive, Based on Cultures, Suspected Indication (Select all that apply): Clostridioides difficile diarrhea, ID Consult: No, Routine Given 05/25/2020 12:06 EST 125 mg Given 05/25/2020 8:51 EST 125 mg Given 05/24/2020 21:01 EST 125 mg documented in this encounter Discontinued Medications Medication Sig Discontinue Reason Start Date End Da te HYDROmorphone (DILAUDID) 2 mg tablet Take 1 Tab by mouth every 4 hours as needed for Pain. Daily Max: 12 mg 04/13/2018 05/25/2020 cefpodoxime (VANTIN) 200 mg tablet Take 1 Tab by mouth every 12 hours. 12/10/2019 05/25/2020 documented as of this encounter Active and Recently Administered Medications Times are shown in EST. Scheduled Medication Order 05/23/2020 05/24/2020 05/25/2020 amitriptyline (ELAVIL) tablet 25 mg 25 mg, oral, DAILY, First dose on Fri05/22/20 at 1700, Until Discontinued, Routine 0815 (Given - Provider: Roxana José RN) 0949 (Given - Provider: Sonam Bran RN) 0851 (Given - Provider: Zulema Weaver RN) cefTRIAXone (ROCEPHIN) 2,000 mg in sodium chloride (NS MBP) 50 mL IVPB (CANCELED) 2,000 mg, intravenous, Administer over 30 Minutes, DAILY, 7 doses, First dose on Fri05/23/20 at 0900, Last dose on Fri05/29/20 at 0900, Type of Therapy: Empiric, Suspected Indication (Select all that apply): UTI or pyelonephritis, ID Consult: No, Routine 0815 (Given - Provider: Roxana José RN) 0944 (Given - Provider: Sonam Bran RN) cephalexin (KEFLEX) capsule 500 mg 500 mg, oral, 2 TIMES DAILY, 14 doses, First dose on Fri05/24/20 at 2100, Last dose on Fri05/31/20 at 0900, Routine 210 (Given - Provider: Lorene Walsh RN) 0851 (Given - Provider: Zulema Weaver RN) diclofenac (VOLTAREN) EC tablet 50 mg 50 mg, oral, 2 TIMES DAILY, First dose on Fri05/22/20 at 2100, Until Discontinued, Routine 0812 (Given - Provider: Roxana José RN)2124 (Given - Provider: Lorene Walsh RN) 09 (Given - Provider: Sonam Bran RN)2100 (Given - Provider: Lorene Walsh RN) 0851 (Given - Provider: Zulema Weaver RN) docusate sodium (COLACE) capsule 100 mg 100 mg, oral, 2 TIMES DAILY, First dose on Fri05/22/20 at 2100, Until Discontinued, Routine 0812 (Given - Provider: Roxana José RN)2124 (Not Given - Provider: Lorene Walsh RN - Reason: Patient/family refused - Comment: several BMs today) 0950 (Not Given - Provider: Sonam Bran RN - Reason: Patient/family refused)2134 (Not Given - Provider: Lorene Walsh RN - Reason: Patient/family refused - Comment: multiple BMs today) 0850 (Not Given - Provider: Zulema Weaver RN - Reason: Patient/family refused - Comment: Having loose BMs) gabapentin (NEURONTIN) capsule 400 mg 400 mg, oral, 3 TIMES DAILY, First dose on Fri05/22/20 at 1700, Until Discontinued, Routine 0814 (Given - Provider: Roxana José RN)1319 (Given - Provider: Roxana José RN)2124 (Given - Provider: Lorene Walsh RN) 0949 (Given - Provider: Sonam Brna RN)1502 (Given - Provider: Rosibel Townsend RN)2100 (Given - Provider: Lorene Walsh RN) 0851 (Given - Provider: Zulema Weaver RN)1453 (Given - Provider: Zulema Weaver RN) heparin injection 5,000 Units 5,000 Units, subcutaneous, EVERY 12 HOURS, First dose on Fri05/22/20 at 2100, Until Discontinued, Routine 0816 (Given - Provider: Roxana José RN)2124 (Given - Provider: Lorene Walsh RN) 0949 (Given - Provider: Sonam Bran RN)2100 (Given - Provider: Lorene Walsh RN) 0852 (Given - Provider: Zulema Weaver RN) insulin aspart U-100 (NOVOLOG FLEXPEN) injection subcutaneous, 3 TIMES DAILY WITH MEALS, First dose on Fri05/22/20 at 1700, Until Discontinued, Routine 0936 (Not Given - Provider: Roxana José RN - Reason: Order parameters not met)1320 (Not Given - Provider: Roxana José RN - Reason: Order parameters not met)1817 (Not Given - Provider: Rosibel Townsend RN - Reason: Order parameters not met) 0748 (Not Given - Provider: Rosibel Townsend RN - Reason: Order parameters not met)1230 (Not Given - Provider: Rosibel Townsend RN - Reason: Order parameters not met)1636 (Not Given - Provider: Rosibel Townsend RN - Reason: Order parameters not met) 0901 (Not Given - Provider: Zulema Weaver RN - Reason: Order parameters not met - Comment: FSBG 123)1211 (Not Given - Provider: Zulema Weaver RN - Reason: Order parameters not met - Comment: FSBG 106)1700 (Canceled Entry - Provider: Batch Job User Admin - Comment: Automatically canceled at discontinue of medication order) insulin aspart U-100 (NOVOLOG FLEXPEN) injection subcutaneous, AT BEDTIME, First dose on Fri05/22/20 at 2100, Until Discontinued, Routine 2126 (Not Given - Provider: Lorene Walsh RN - Reason: Order parameters not met - Comment: BS 126) 2136 (Not Given - Provider: Lorene Walsh RN - Reason: Order parameters not met - Comment: BS 139) melatonin tablet 5 mg 5 mg, oral, AT BEDTIME, First dose on Fri05/22/20 at 2100, Until Discontinued, Routine 2124 (Given - Provider: Lorene Walsh RN) 2100 (Given - Provider: Lorene Walsh RN) metoprolol SUCCinate (TOPROL-XL) tablet 25 mg 25 mg, oral, 2 TIMES DAILY, First dose on Fri05/22/20 at 2100, Until Discontinued 08 (Given - Provider: Roxana José RN)2124 (Given - Provider: Lorene Walsh RN) 0949 (Given - Provider: Sonam Bran RN)2102 (Given - Provider: Lorene Walsh RN) 0851 (Given - Provider: Zulema Weaver RN) pantoprazole (PROTONIX) tablet 40 mg 40 mg, oral, DAILY, First dose on Fri05/22/20 at 1700, Until Discontinued, Routine 08 (Given - Provider: Roxana José RN) 0949 (Given - Provider: Sonam Bran RN) 0851 (Given - Provider: Zulema Weaver RN) vancomycin (VANCOCIN) 1,250 mg in dextrose 5% (D5W) 250 mL IVPB 1,250 mg, intravenous, Administer over 75 Minutes, EVERY 12 HOURS, 14 doses, First dose (after last reorder) on Fri05/24/20 at 2145, Last dose on Fri05/31/20 at 0945, Type of Therapy: Definitive, Based on Cultures, Suspected Indication (Select all that apply): Other, Other Indication: gram positive cocci renal fluid, ID Consult: No, Routine 2099 (Given - Provider: Lorene Walsh RN) 08 (Given - Provider: Zulema Weaver RN) vancomycin (VANCOCIN) capsule 125 mg 125 mg, oral, 4 TIMES DAILY, 16 doses, First dose on Fri05/22/20 at 1700, Last dose on Fri05/26/20 at 1200, Type of Therapy: Definitive, Based on Cultures, Suspected Indication (Select all that apply): Clostridioides difficile diarrhea, ID Consult: No, Routine 0815 (Given - Provider: Roxana José RN)1319 (Given - Provider: Roxana José RN)165 (Given - Provider: Rosibel Townsend RN)2124 (Given - Provider: Lorene Walsh RN) 0739 (Given - Provider: Rosibel Townsend RN)1225 (Given - Provider: Rosibel Townsend RN)1635 (Given - Provider: Rosibel Townsend RN)2101 (Given - Provider: Lorene Walsh RN) 0851 (Given - Provider: Zulema Weaver RN)1206 (Given - Provider: Zulema Weaver RN)1700 (Canceled Entry - Provider: Batch Job User Admin - Comment: Automatically canceled at discontinue of medication order) vancomycin (VANCOCIN) IVPB 1,000 mg (CANCELED) 1,000 mg, intravenous, Administer over 60 Minutes, EVERY 12 HOURS, 14 doses, First dose on Fri05/22/20 at 2145, Last dose on Fri05/29/20 at 0945, Type of Therapy: Definitive, Based on Cultures, Suspected Indication (Select all that apply): Other, Other Indication: gram positive cocci renal fluid, ID Consult: No, STAT 0055 (Trough Due - Provider: Mere Smalls [facility] - Comment: please draw vanco level at 0055 (two hours after the end of the infusion) Thank you!)0931 (Given - Provider: Roxana José RN)2242 (Given - Provider: Lorene Walsh RN) 0915 (Trough Due - Provider: Jose Savage [facility] - Comment: please draw trough before 0945 dose -thanks!)1048 (Given - Provider: Rosibel Townsend RN - Comment: another IV abx)1144 (IV Pause - Provider: Rosibel Townsend RN - Comment: IV leaking)1226 (IV Resume - Provider: Rosibel Townsend RN) Continuous Medication Order 05/23/2020 05/24/2020 05/25/2020 lactated ringers (LR) infusion (CANCELED) 100 mL/hr, intravenous, CONTINUOUS, Starting on Fri05/22/20 at 1345, Until Fri05/24/20 at 1440, Routine 0205 (New Bag - Provider: Lorene Walsh RN)0944 (Paused - Provider: Sonam Bran RN - Comment: not compatible with ceftriaxone, paused until IV abx complete)1311 (IV Resume - Provider: Rosibel Townsend RN)1501 (Completed - Provider: Rosibel Townsend RN) PRN Medication Order 05/23/2020 05/24/2020 05/25/2020 acetaminophen (TYLENOL) suppository 650 mg(Linked Group 1) 650 mg, rectal, EVERY 4 HOURS PRN, Starting on Fri05/22/20 at 1635, Until Danette 05/25/20 at 1919, Pain, Routine acetaminophen (TYLENOL) tablet 650 mg(Linked Group 1) 650 mg, oral, EVERY 4 HOURS PRN, Starting on Fri05/22/20 at 1635, Until Danette 05/25/20 at 1919, Pain, Routine bisacodyL (DULCOLAX) suppository 10 mg 10 mg, rectal, DAILY PRN, Starting on Fri05/22/20 at 1635, Until Danette 05/25/20 at 1919, Constipation, Routine dextrose 50 % solution 12.5 g 12.5 g (25 mL), intravenous, PRN, Starting on Fri05/22/20 at 1635, Until Fri05/25/20 at 1919, Low Blood Sugar, Routine glucagon injection 1 mg 1 mg, intramuscular, PRN, Starting on Fri05/22/20 at 1635, Until Fri05/25/20 at 1919, Other, Low blood sugar, Routine ondansetron (PF) (ZOFRAN) injection 4 mg(Linked Group 2) 4 mg, intravenous, EVERY 4 HOURS PRN, Starting on Fri05/22/20 at 1635, Until Fri05/25/20 at 1919, Nausea, Routine ondansetron (ZOFRAN-ODT) disintegrating tablet 4 mg(Linked Group 2) 4 mg, oral, EVERY 4 HOURS PRN, Starting on Fri05/22/20 at 1635, Until Fri05/25/20 at 1919, Nausea, Routine phenazopyridine (PYRIDIUM) tablet 200 mg 200 mg, oral, 3 TIMES DAILY PRN, 9 doses, Starting on Fri05/22/20 at 1316, Until Danette 05/25/20 at 1919, Pain, Routine promethazine (PHENERGAN) suppository 12.5 mg(Linked Group 3) 12.5 mg, rectal, EVERY 6 HOURS PRN, Starting on Fri05/22/20 at 1635, Until Fri05/25/20 at 1919, Nausea, Routine promethazine (PHENERGAN) tablet 12.5 mg(Linked Group 3) 12.5 mg, oral, EVERY 6 HOURS PRN, Starting on Fri05/22/20 at 1635, Until Fri05/25/20 at 1919, Nausea, Routine Linked Groups Order Group 1: acetaminophen (TYLENOL) tablet 650 mgJump to med 650 mg, oral, EVERY 4 HOURS PRN, Starting on Fri05/22/20 at 1635, Until Fri05/25/20 at 1919, Pain, Routine Or acetaminophen (TYLENOL) suppository 650 mgJump to med 650 mg, rectal, EVERY 4 HOURS PRN, Starting on Fri05/22/20 at 1635, Until Fri05/25/20 at 1919, Pain, Routine Group 2: ondansetron (PF) (ZOFRAN) injection 4 mgJump to med 4 mg, intravenous, EVERY 4 HOURS PRN, Starting on Fri05/22/20 at 1635, Until Fri05/25/20 at 1919, Nausea, Routine Or ondansetron (ZOFRAN-ODT) disintegrating tablet 4 mgJump to med 4 mg, oral, EVERY 4 HOURS PRN, Starting on Fri05/22/20 at 1635, Until Fri05/25/20 at 1919, Nausea, Routine Group 3: promethazine (PHENERGAN) tablet 12.5 mgJump to med 12.5 mg, oral, EVERY 6 HOURS PRN, Starting on Fri05/22/20 at 1635, Until Fri05/25/20 at 1919, Nausea, Routine Or promethazine (PHENERGAN) suppository 12.5 mgJump to med 12.5 mg, rectal, EVERY 6 HOURS PRN, Starting on Fri05/22/20 at 1635, Until Fri05/25/20 at 1919, Nausea, Routine documented in this encounter Orders Medications Ordered That John ht Not Have Been Administered Count Last Ordered Date First Ordered Date cephalexin (KEFLEX) capsule 500 mg 2020 vancomycin (VANCOCIN) 1,250 mg in dextrose 5% (D5W) 250 mL IVPB 05/24/2020 acetaminophen (TYLENOL) solu tion unit dose cup 995 mg 1 05/22/2020 acetaminophen (TYLENOL) suppository 650 mg 1 05/22/2020 acetaminophen (TYLENOL) tablet 1,000 mg 1 0 05/22/2020 acetaminophen (TYLENOL) tablet 650 mg 1 amitriptyline (ELAVIL) tablet 25 mg 1 05/22 atropine 0.1 mg/mL syringe 0.5 mg 1 bisacodyL (DULCOLAX) suppository 10 mg 1 cefTRIAXone (ROCEPHIN) 1,000 mg in sodium chloride (NS MBP) 50 mL IVPB 1 05/22/2020 cefTRIAXone (ROCEPHIN) 2,000 mg in sodium chloride (NS MBP) 50 mL IVPB 1 05/22/2020 dextrose 50 % solution 12.5 g 1 05/22/2020 diclofenac (VOLTAREN) EC tablet 50 mg 1 docusate sodium (COLACE) capsule 100 mg 1 0 05/22/2020 fentaNYL citrate (PF) injection 25-50 mcg 1 05/22/2020 gabapentin (NEURONTIN) capsule 400 mg 1 glucagon injection 1 mg 1 05/22/2020 heparin injection 5,000 Units 1 05/22/2020 HYDROmorphone (DILAUDID) tablet 2-4 mg 1 HYDROmorphone (PF) (DILAUDID ) 0.5 mg/0.5 mL syringe 0.3-0.5 mg 1 05/22/2020 HYDROmorphone (PF) (DILAUDID ) 0.5 mg/0.5 mL syringe 0.5 mg 1 05/22/2020 insulin aspart U-100 (NOVOLO G FLEXPEN) injection 2 05/22/2020 lactated ringers (LR) infusion 3 05/22/2020 melatonin tablet 5 mg 1 05/22/2020 metoprolol SUCCinate (TOPROL -XL) tablet 25 mg 1 05/22/2020 naloxone (NARCAN) injection 0.2 mg 1 2020 ondansetron (PF) (ZOFRAN) injection 4 mg 2 05/22/2020 ondansetron (ZOFRAN-ODT) dis integrating tablet 4 mg 1 05/22/2020 pantoprazole (PROTONIX) tablet 40 mg 1 04/29 phenazopyridine (PYRIDIUM) tablet 200 mg 1 05/22/2020 promethazine (PHENERGAN) sup pository 12.5 mg 1 05/22/2020 promethazine (PHENERGAN) tablet 12.5 mg 1 0 05/22/2020 vancomycin (VANCOCIN) capsule 125 mg 1 04/29 vancomycin (VANCOCIN) IVPB 1,000 mg 1 05/22 Nursing Count Last Ordered Date First Orde red Date NURSING COMMUNICATION 1 05/22/2020 IV Count Last Ordered Date First Orde red Date IV REQUEST 2 05/24/2020 05/23/2020 Admission Count Last Ordered Date First Orde red Date ADMIT TO INPATIENT 1 05/22/2020 Transfer Count Last Ordered Date First Orde red Date ED BED REQUEST 1 05/22/2020 TEACHING SERVICE 1 05/22/2020 Discharge Count Last Ordered Date First Orde red Date DISCHARGE PATIENT 1 05/25/2020 Case Request Count Last Ordered Date First Orde red Date CASE REQUEST OPERATING ROOM 1 05/22/2020 documented in this encounter Additional Health Concerns [...] documented as of this encounter Care Teams Printed Circuit Board Layout Designer Relationship Specialty Start Date End Date Sera Gay FNP [address] [place] [address] PCP - General 09/02/13 10/31/22 documented as of this encounter
--- OUTSIDE RECORDS SUMMARY | 2023-12-18 00:15 | XMS_ITS | Encounter Summary ---
Author Organization [facility] Address [address] [place] [address] Care Team Providers Care Plasterer Foreman Name Role Phone Sera Gay Tommy STEINER Primary Care Provider + Reason for Visit * Reason Onset Date Comments Labs Only 05/29/2020 Encounter Details Date Type Department Care Team (Late st Contact Info) Description 05/29/2020 Telephone [facility] Urology - [address] [address] Hao Rodríguez MD [address] [place] [address], [address] [place] [id number] Labs Only Social History Tobacco Use Types Packs/Day Years [...] Telephone Encounter - Tamiko White RN - 05/29/2020 1319 EST Labs were drawn today. * Telephone Encounter - Vanessa Almonte - 05/29/2020 1246 EST Patient calling from lab stating that her orders aren't signed. Please call back to advise. documented in this encounter Plan [...] documented as of this encounter Care Teams Plasterer Foreman Relationship Specialty Start Date End Date Sera Gay FNP [address] [place] [address] PCP - General 09/02/13 10/31/22 documented as of this encounter
--- OUTSIDE RECORDS SUMMARY | 2023-12-18 00:15 | XMS_ITS | Encounter Summary ---
Author Organization [facility] Address [address] [place] [address] Care Team Providers Care Medical Research Associate Name Role Phone Victor Hugo Sera STEINER Primary Care Provider + Reason for Visit * Auth/Cert Specialty Diagnoses / Procedures Referred By Claudio quinteros Referred To Contact Diagnoses renal obstruction Referral ID Status Reason Start Date Expiration Date Visits Re quested Visits Authorized [id number] 1 1 Encounter Details Date Type Department Care Team (Late st Contact Info) Description 05/22/2020 11:34 EST Anesthesia Event [facility] OR [address] [place], [place] [address] Tamar Gutierrez MD [address] [facility], [facility] [address] [place] [address] Liam Smith DO Anesthesia Record Procedure Summary Procedure Name Responsible Anesthesiologist Anesthesia Start Time Anesthesia Stop Time Cystoscopy, right ureteral double J stent insertion (Right: Ureter) Tamar uGtierrez MD 05/22/20 1134 05/22/20 1313 Events Date Time Event Comment 05/22/2020 1134 An Start The patient was re-evaluated immediately before moderate or deep sedation use, before anesthesia induction, or before the anesthesia procedure. 1134 An Start Data 1143 An Induction The patient was reevaluated immediately before moderate or deep sedation use and before anesthesia induction. 1152 An Intubation 1156 Anesthesia Ready 1245 An Extubation 1257 an stop data 1311 Handoff to RN I completed my handoff to the receiving nurse during which we: 1. Identified the patient 2. Identified the responsible provider 3. Reviewed the pertinent medical history 4. Discussed the surgical course 5. Reviewed intra-op anesthesia management and issues during anesthesia 6. Set expectations for post-procedure period 7. Allowed opportunity for questions and acknowledgement of understanding. 1313 An Stop Meds Name Total lidocaine 2% (PF) injection glass vial 1 00 mg midazolam 1 mg/mL 2 mL vial 2 mg ondansetron (PF) (ZOFRAN) injection 4 mg phenylephrine pre-filled syringe 500 mcg propOFol (DIPRIVAN) injection 150 mg propofol (DIPRIVAN) 500 mg in 50 mL infu renan 422,982 mcg rocuronium 10 mg/mL vial 50 mg sugammadex 100 mg/mL 2 mL vial 500 mg remifentaniL (ULTIVA) 2,000 mcg 80 mcg remifentaniL (ULTIVA) 2,000 mcg 603.29 m cg phenylephrine pre-made bag 20 mg/250 mL 2,120 mcg lactated ringers (LR) infusion 900 mL * Agents Name O2 N2O Air Cumulated Iso Consumption Aux O2 flow * Blood No blood administrations on file. Lines, Drains, and Airways Type Details Placement Removal Wound Other; 05/23/20 05/22/20 1232 by 05/23/20 0000 by Beth Gaston, ALEXA Peripheral IV 05/22/20; 18; Left; Antecubital; Patient arrived with LDA (Pt states placed in ED at other hospital); 05/24/20; 1228; Leaking; Catheter bent 05/22/20 0000 by Kathryn Hoffman, ALEXA 05/24/20 1228 by Areli León MA Stent 05/22/20; 1215; In O R by ; Ureteral right; 6 Greek; 24 cm; 11/27/22; 1301 05/22/20 1215 by Nancy Smith, ALEXA 11/27/22 1301 by Magda Isabel, ALEXA Urethral Catheter 05/22/20; 1229; In O R by ; Selected surgical procedures/Epidural; Non-latex; 16 fr; 10 ml; Yes; 05/23/20; 1320 05/22/20 1229 by Nancy Smith, ALEXA 05/23/20 1320 by Roxana José, ALEXA documented in this encounter Social History Tobacco [...] OR Notes * Anesthesia Postprocedure Evaluation - Abegg-Mary Kay Campos MD - 05/22/2020 1313 EST Patient: Blessing Ortiz Vital signs were reviewed with the recovery nurse. Complete vitals [facility] Vitals Value Taken Time BP 138/81 05/22/20 1302 Temp 05/22/20 1313 Resp 13 05/22/20 1312 Pulse From Oximetry 73 BPM 05/22/20 1312 SpO2 96 % 05/22/20 1312 Vitals shown include unvalidated device data. Last Pain Score - Numeric Pain Level (Scale 1-10): 2 Type of Anesthesia - general Anesthesia Post Evaluation Post-procedure vitals reviewed and are stable. Level of consciousness: awake Temperature status: normothermia and patient returned to pre-procedure baseline Respiratory status: airway patent and stable Cardiovascular status: stable Hydration status: adequate Nausea/Vomiting: none Pain management: adequate Post-Op Assessment: patient tolerated procedure well with no complications Patient participation: able to participate Disposition: inpatient Anesthesia Complications: No apparent anesthesia complications * Anesthesia Procedure Notes - Mary Kay Rodas MD - 05/22/2020 1225 EST Associated Order(s): Airway Airway Date/Time: 05/22/2020 11:52 Urgency: elective Airway not difficult General Information and Staff Patient location during procedure: OR Anesthesiologist: Tamar Gutierrez MD Resident/FOX RAISER: Mary Kay Rodas MD Performed: resident/FOX RAISER/AA Indications and Patient Condition Indications for airway management: anesthesia Sedation level: GA Preoxygenated: yes Patient position: sniffing Ventilation assessment: 2 - Oral airway inserted Final Airway Details Final airway type: endotracheal airway Successful airway: ETT Cuffed: yes Successful intubation technique: direct laryngoscopy Facilitating devices/methods: intubating stylet Endotracheal tube insertion site: oral Blade: Ascencio Blade size: #2 ETT size (mm): 7.0 Cormack-Lehane Classification: grade I - full view of glottis Placement verified by: chest auscultation, capnometry and palpation of cuff Measured from: teeth ETT to teeth (cm): 23 Number of attempts at approach: 1 * Anesthesia Preprocedure Evaluation - Mary Kay Rodas MD - 05/22/2020 1116 EST Anesthesia Preprocedure Evaluation Patient Medical History, including Anesthesia History reviewed. Chart and Nursing Notes reviewed, including NPO status and Medication History. Additional ROS/History Findings: PMHx of prediabetes (diet only), HTN on metoprolol and multiple urologic procedures now presenting for R cysto/stent. Hemodynamically stable, afebrile. Mildly elevated WBC 15.4. PONV, no other anesthesia complications. Distant 5 py smoking hx, no other illicit drugs or EtOH. Allergy to levoquin (hives) but states that she has received cipro without issue. NPO since 2am per patient. Consented for GA, possible art line Allergies Allergen Reactions ??? Adhesive Tape allergy. Blister rash ??? Levaquin [Levofloxacin] Hives and Itching Review of Systems Constitutional: Negative for chills, diaphoresis and fever. Respiratory: Negative for cough and shortness of breath. Cardiovascular: Negative for chest pain and leg swelling. Gastrointestinal: Negative for heartburn, nausea and vomiting. Musculoskeletal: Positive for back pain and joint pain. Psychiatric/Behavioral: The patient is not nervous/anxious. Past Medical History: Diagnosis Date ??? Anxiety ??? Bacteremia 03/04/2016 ??? Calculus of kidney 02/29/2016 ??? Chills 03/04/2016 ??? Depression ??? Diabetes mellitus ([facility]) ??? Hypercholesteremia ??? Hypertension ??? IBS (irritable bowel syndrome) ??? Interstitial cystitis ??? Left flank pain 03/04/2016 ??? Nausea 03/04/2016 ??? Sepsis 03/04/2016 ??? UTI (urinary tract infection) 03/04/2016 Relevant Problems /Renal (+) Calculus of kidney (+) Hydronephrosis of right kidney (+) Nephrolithiasis Physical Exam Airway Mallampati: II TM distance: >3 FB Neck ROM: full Cardiovascular Rhythm: regular Rate: normal (-) murmur, peripheral edema, JVD Dental Pulmonary Breath sounds clear to auscultation Abdominal Anesthesia Plan ASA 3 - emergent Anesthesia Type - general, to include intravenous induction and TIVA. Anesthesia plan and risks discussed. Informed consent obtained from patient. Use of blood products discussed with patient who consented to blood products. Specific risks discussed were bleeding, dental injury, infection, vomiting and nausea. The preoperative history and physical which was performed within 30 days of this procedure, has been reviewed and the clinically appropriate elements of the physical examination have been repeated. There are no changes to the documented history and physical or, if so, such changes are documented inthis note PAT Note (Notes from 04/22/20 through 05/22/20) No notes of this type exist for this encounter. documented in this encounter Plan of Treatment Not on file documented as of this encounter Procedures Procedure Name Priority Date/Time Associated Diagnosis Comments ANESTHESIA INTUBATION Routine 05/22/2020 12:25 EST documented in this encounter Results * Airway (05/22/2020 12:25 EST) Narrative Mary Kay Rodas MD - 05/22/2020 12:25 EST Mary Kay Rodas MD ? 05/22/2020 12:26 Airway Date/Time: 05/22/2020 11:52 Urgency: elective Airway not difficult General Information and Staff Patient location during procedure: OR Anesthesiologist: Tamar Gutierrez MD Resident/FOX RAISER: Mary Kay Rodas MD Performed: resident/FOX RAISER/AA Indications and Patient Condition Indications for airway management: anesthesia Sedation level: GA Preoxygenated: yes Patient position: sniffing Ventilation assessment: 2 - Oral airway inserted Final Airway Details Final airway type: endotracheal airway Successful airway: ETT Cuffed: yes Successful intubation technique: direct laryngoscopy Facilitating devices/methods: intubating stylet Endotracheal tube insertion site: oral Blade: Ascencio Blade size: #2 ETT size (mm): 7.0 Cormack-Lehane Classification: grade I - full view of glottis Placement verified by: chest auscultation, capnometry and palpation of cuff Measured from: teeth ETT to teeth (cm): 23 Number of attempts at approach: 1 Tamar Gutierrez MD ANESTHESIA OR DERABLES documented in this encounter Visit Diagnoses Not on filedocumented in this encounter Administered Medications Inactive Administered Medications - up to 3 most recent administrations Medication Order MAR Action Action Date Dose Rate Site lactated ringers (LR) infusion at 125 mL/hr, intravenous, CONTINUOUS, Starting on Fri05/22/20 at 1000, Until Fri05/24/20 at 1440, STAT Continued by Anesthesia 05/22/2020 11:45 EST New Bag 05/22/2020 10:00 EST 125 mL/hr lidocaine (PF) 20 mg/mL (2 %) injection PRN, Starting on Fri05/22/20 at 1144, Until Fri05/22/20 at 1313, Routine, Anesthesia Intraprocedure Given 05/22/2020 11:44 EST 100 mg midazolam (PF) (VERSED) injection PRN, Starting on Fri05/22/20 at 1142, Until Fri05/22/20 at 1313, Routine, Anesthesia Intraprocedure Given 05/22/2020 11:42 EST 2 mg ondansetron (PF) (ZOFRAN) injection PRN, Starting on Fri05/22/20 at 1224, Until Fri05/22/20 at 1313, Routine, Anesthesia Intraprocedure Given 05/22/2020 12:24 EST 4 mg phenylephrine HCl in 0.9% NaCl (NEO_SYNEPHRINE) 20 mg/250 mL (80 mcg/mL) infusion solution FA IP EQF CONTINUOUS PRN FOR ONE STEP MEDS, Starting on Fri05/22/20 at 1147, Until Fri05/22/20 at 1313, Routine, Anesthesia Intraprocedure New Bag 05/22/2020 11:47 EST 40 mcg/min 30 mL/hr phenylephrine HCl in 0.9% NaCl injection PRN, Starting on Fri05/22/20 at 1201, Until Fri05/22/20 at 1313, Routine, Anesthesia Intraprocedure Given 05/22/2020 12:27 EST 100 mcg Given 05/22/2020 12:14 EST 200 mcg Given 05/22/2020 12:05 EST 100 mcg propofol (DIPRIVAN) 500 mg in 50 mL infusion FA IP EQF CONTINUOUS PRN FOR ONE STEP MEDS, Starting on Fri05/22/20 at 1144, Until Fri05/22/20 at 1313, Routine, Anesthesia Intraprocedure Restarted 05/22/2020 12:32 EST 50 mcg/kg/min 34 mL/hr Restarted 05/22/2020 12:24 EST 50 mcg/kg/min 34 mL/hr Rate Change 05/22/2020 12:18 EST 50 mcg/kg/min 34 mL/hr propOFol (DIPRIVAN) injection PRN, Starting on Fri05/22/20 at 1145, Until Fri05/22/20 at 1313, Routine, Anesthesia Intraprocedure Given 05/22/2020 11:45 EST 150 mg remifentaniL (ULTIVA) 2,000 mcg FA IP EQF CONTINUOUS PRN FOR ONE STEP MEDS, Starting on Fri05/22/20 at 1144, Until Fri05/22/20 at 1313, Anesthesia Intraprocedure Rate Change 05/22/2020 12:13 EST 0.05 mcg/kg/min 17 mL/hr New Bag 05/22/2020 11:44 EST 0.08 mcg/kg/min 27.2 mL/hr remifentaniL (ULTIVA) 2,000 mcg FA IP EQF CONTINUOUS PRN FOR ONE STEP MEDS, Starting on Fri05/22/20 at 1145, Until Fri05/22/20 at 1313, Anesthesia Intraprocedure New Bag 05/22/2020 11:45 EST 80 mcg rocuronium (ZEMURON) injection PRN, Starting on Fri05/22/20 at 1145, Until Fri05/22/20 at 1313, Routine, Anesthesia Intraprocedure Given 05/22/2020 11:45 EST 50 mg sugammadex (BRIDION) injection PRN, Starting on Fri05/22/20 at 1237, Until Fri05/22/20 at 1313, Routine, Anesthesia Intraprocedure Given 05/22/2020 12:37 EST 500 mg documented in this encounter Orders Medications Ordered That John ht Not Have Been Administered Count Last Ordered Date First Ordered Date phenylephrine HCl in 0.9% NaCl injection 1 05/22/2020 documented in this encounter Additional Health Concerns Infection Onset Date Last Indicated Resolved Time 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
--- OUTSIDE RECORDS SUMMARY | 2023-12-18 00:15 | XMS_ITS | Encounter Summary ---
Author Organization [facility] Address [address] [place] [address] Care Team Providers Care Substation Supervisor Name Role Phone Sera Gay Tommy STEINER Primary Care Provider + Reason for Visit * Reason Onset Date Comments Ultrasound 01/11/2020 Encounter Details Date Type Department Care Team (Late st Contact Info) Description 01/11/2020 Telephone [facility] Urology - [facility] [address] [place] [address] Rajesh Ibarra MD [address] [place] [id number] Ultrasound Social History Tobacco Use Types Packs/Day Years [...] Telephone Encounter - Tamiko White RN - 01/11/[address] Ibarra, plan is for follow up in 6 months with a repeat ultrasound. TC to patient to discuss, patient is aware. * Telephone Encounter - Zachary Ortiz - 01/11/2020 1310 EDT Patient is calling to ask why she is being scheduled for an US because she had one this past November. Please call back to advise. documented in [...] documented as of this encounter Care Teams Substation Supervisor Relationship Specialty Start Date End Date Sera Gay FNP [address] [place] [address] PCP - General 09/02/13 10/31/22 documented as of this encounter
--- OUTSIDE RECORDS SUMMARY | 2023-12-18 00:15 | XMS_ITS | Encounter Summary ---
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 Pre-op testing Social History Tobacco Use Types [...] Procedure Name Priority Date/Time Associated Diagnosis Comments PRE-OP TYPE AND SCREEN Routine 13:11 EST Pre-op testing COMPLETE BLOOD COUNT Routine 05/29/2020 13:11 EST Pre-op testing COMPREHENSIVE METABOLIC PANEL (CMP) Routine 05/29/2020 13:11 EST Pre-op testing documented in this encounter Results * PRE-OP BLOOD BANK DRAW (05/29/2020 13:11 EST) Hold BB Spec will exp at 23:59, 3 days from collect date 05/29/2020 20:31 EST [facility] BLOOD BANK Blood VENOUS BLOOD / Unknown Venipuncture / Unknown 05/29/2020 13:11 EST 05/29/2020 13:18 EST Hao Rodríguez MD BLOOD BANK TESTS [facility] BLOOD BANK [address] [facility] [address] * (ABNORMAL) COMPLETE BLOOD COUNT (05/29/2020 13:11 EST) WBC 7.45 4.00 - 12.40 K/cmm 05/29/2020 13:41 EST [facility] RBC 4.37 3.86 - 5.04 M/cmm 05/29/2020 13:41 [facility] Hemoglobin 13.2 11.6 - 15.2 gm/dL 05/29/2020 13:41 [facility] HCT 38.7 34.9 - 44.4 % 05/29/2020 13:41 [facility] MCV 89 81 - 98 fl 05/29/2020 13:41 [facility] MCH 30.2 26.7 - 33.3 pg 05/29/2020 13:41 [facility] MCHC 34.1 32.1 - 35.9 gm/dL 05/29/2020 13:41 [facility] RDW-CV 13.8 <14.7 % 05/29/2020 13:41 [facility] RDW-SD 44.2 <50.4 fl 05/29/2020 13:41 [facility] PLT 149 141 - 377 K/cmm 05/29/2020 13:41 [facility] MPV 8.4(L) 9.5 - 12.7 fl 05/29/2020 13:41 [facility] Blood VENOUS BLOOD / Unknown Venipuncture / Unknown 05/29/2020 13:11 EST 05/29/2020 13:32 EST Hao Rodríguez MD HEMATOLOGY & PF4 ORDERABLES Performing Organization Address City/State/[facility] Co de Phone Number [facility] [address] [place] [address] * (ABNORMAL) COMPREHENSIVE METABOLIC PANEL (CMP) (05/29/2020 13:11 EST) Sodium 140 136 - 145 mEq/L 05/29/2020 14:00 [facility] Potassium 4.1 3.5 - 5.0 mEq/L 05/29/2020 14:00 [facility] Chloride 101 96 - 110 mEq/L 05/29/2020 14:00 [facility] CO2 Total 28 22 - 32 mEq/L 05/29/2020 14:00 [facility] Glucose 105(H) 70 - 100 mg/dL 05/29/2020 14:00 [facility] BUN 14 10 - 26 mg/dL 05/29/2020 14:00 [facility] Creatinine 0.76 0.52 - 1.04 mg/dL 05/29/2020 14:00 [facility] eGFR 93 >60 mL/min/1.7 3m2 05/29/2020 14:00 [facility] Comment:eGFR calculated kimberly grossman CKD-EPI equation for non- Americans. Multiply eGFR by 1.16 for patients. Total Protein 7.3 6.3 - 8.2 g/dL 05/29/2020 14:00 [facility] Albumin 4.2 3.4 - 4.9 g/dL 05/29/2020 14:00 [facility] Alkaline Phosphatase 95 38 - 126 U/L 05/29/2020 14:00 [facility] AST 78(H) 15 - 46 U/L 05/29/2020 14:00 [facility] ALT 52(H) <35 U/L 05/29/2020 14:00 [facility] Bilirubin, Total <0.5 <1.4 mg/dL 05/29/19 14:00 [facility] Calcium 9.4 8.5 - 10.5 mg/dL 05/29/2020 14:00 [facility] Calculated Calcium 9.2 8.5 - 10.5 mg/dL 05/29/2020 14:00 [facility] Blood VENOUS BLOOD / Unknown Venipuncture / Unknown 05/29/2020 13:11 EST 05/29/2020 13:32 EST Hao Rodríguez MD CHEMISTRY & BLOOD GAS ORDERABLES [facility] [address] [place] [address] documented in this encounter Visit Diagnoses Diagnosis Pre-op testing Preoperative examination, unspecified documented in this encounter Additional Health Concerns [...] documented as of this encounter Care Teams Reinforcing Steel Worker Wire Mesh Relationship Specialty Start Date End Date Sera Gay FNP [address] [place] [address] PCP - General 09/02/13 10/31/22 documented as of this encounter
--- OUTSIDE RECORDS SUMMARY | 2023-12-18 00:15 | XMS_ITS | Encounter Summary ---
Author Organization [facility] Address [address] [place] [address] Care Team Providers Care Head Butler Name Role Phone Sera Gay JATIN Primary Care Provider + Reason for Visit * Reason Comments Abdominal Pain Transfer from [facility] to be seen by urology for ongoing abdl pain r/t known hydronephrosis. Covid (-) this morning. Recent positive Cdiff (1 week ago). * Auth/Cert Specialty Diagnoses / Procedures Referred By Claudio quinteros Referred To Contact Diagnoses renal obstruction Referral ID Status Reason Start Date Expiration Date Visits Re quested Visits Authorized [id number] 1 1 Encounter Details Date Type Department Care Team (Latest Contact Info) Description 05/22/2020 7:23 EST - 05/25/2020 17:19 [facility] Hospital Encounter [facility] Specialty Surgery Unit [address] [place] [address] Gus Schultz MD Sternberg, Kevan Michael, MD [address] [place] [id number] Hydronephrosis of right kidney (Primary Dx); Ureteral stricture, right Discharge Disposition: Home or Self Care Social [...] Sign Reading Time Taken Comments Blood Pressure 151/88 05/25/2020 1414 EST Pulse 95 05/22/2020 0737 EST Temperature 36.6 ??C (97.9 ??F) 05/25/2020 1414 EST Respiratory Rate 16 05/25/2020 1414 EST Oxygen Saturation 96% 05/25/2020 1414 EST Inhaled Oxygen Concentration - - Weight 113.4 kg (250 lb) 05/22/2020 1609 EST Height 165.1 cm (5' 5) 05/22/2020 1609 EST Body Mass Index 41.6 05/22/2020 1609 [...] 05/22/2020 Added automatically from request for surgery [id number] ??? Ureteral stricture, right 05/22/2020 Resolved Hospital [...] indwelling Ashby catheter. Once stable transferred to [place] [address] for her continuing care. Bacteria culture taken [...] Component Value Units Date/Time Bacterial Culture/Smear, Other [[id number]] (Abnormal) Collected: 05/22/20 1228 Lab Status: Preliminary [...] Office Visit Medium with Hao Rodríguez MD [facility] Urology [facility] (--) [address] [facility]3] [address] Gale Chaidez PA-C 05/26/2020 15:17 documented in [...] you. It is important to keep taking osur-ntz-zepyarf Tylenol (acetaminophen) and ibupr ofen unless your [...] Appointments: See Dr. Rodríguez in urology clinic [facility] Future Appointments Date Time Provider Department Center [...] Code Departure Means Destination Home or Self Assisted documented in this encounter Progress Notes * Matilda Fragoso - 05/25/2020 1451 EST Case Management Note Pt is ready for d/c I tubed her Rxs to [facility] for Meds to Beds Blessing called her to come and get her. No indication for any HH or DME. Pt and team are in agreement with d/c plan. Blessing will f/u Outpatient with Urology. Perlita Fragoso RN CM #[id number] * Rajesh Ibarra - 05/25/2020 0801 EST [...] from right ureteral stent placement. 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 Plan: ??? Abx: vanc PO and IV, CTX ??? F/U Cx at [facility] ??? Diet: Cons Carb ??? Activity as tolerated ??? Encourage IS ??? Anticoagulation: Hep BID Dispo Planning ??? [place]: Today ??? Follow up: will see Dr. Rodríguez in clinic to discuss ureteral stricture surgery Davon Beverly MD 05/25/2020 8:01 Weekdays from 7AM-5PM page [phone] with questions. For weekends and all other [...] from right ureteral stent placement. 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 Plan: ??? Abx: vanc PO and IV, CTX ??? F/U Cx at [facility] ??? Diet: Cons Carb ??? Activity as tolerated ??? Encourage IS ??? Anticoagulation: Hep BID Dispo Planning ??? HO[place]: 1-2 days ??? Follow up: will see Dr. Rodríguez in clinic to discuss ureteral stricture surgery No future appointments. BREE SHEPHERD MD 05/23/2020 6:37 Weekdays from 7AM-5PM page [phone] with questions. For weekends and all other times, please page through PAS Attestation statement: I performed or was present during the ness or critical portions of the visit and participated in the management of the patient. I agree with the findings and plan of care documented in the resident's/fellow's note. * Brenda Rodriguez, ALEXA - 05/23/2020 9763 EST Blue slip to assess OSH PIV- [...] from the original note were not included. [facility] Urologic Surgery Emergency Department Consult and H&P Note Admit Date: 05/22/2020 Date of Service: 05/22/2020 PCP: JATIN House Requesting Attending: Gus Schultz MD Specialty Completing [...] the kidneys. Patient presented this morning to [facility] with right flank pain that [...] she is currently on oral vancomycin. At [facility], patient had CT renal colic that showed right hydronephrosis without any obstructing calculi. Her urinalysis is was positive for nitrites moderate bacteria. Her WBC was 15.4. She received 1 g of IV ceftriaxone and transferred to [facility] for further care. Last time she ate was yesterday at 6 PM and she had some water on the way to the ED at 2 AM. Past Medical History: Diagnosis Date ??? Anxiety ??? Bacteremia 03/04/2016 ??? Calculus of kidney 02/29/2016 ??? Chills 03/04/2016 ??? Depression ??? Diabetes mellitus ([facility]) ??? Hypercholesteremia ??? Hypertension ??? IBS (irritable [...] gross motor deficits Data Review: Labs from [facility]: Imaging: I have independently visualized the CT [...] urine culture from the OR and from [facility] Patient was discussed with attending expeditionary force combat skills Dr. De La Rosa Thank you for consulting us in the care of Blessing Ortiz. We will, of course, continue to keep you informed of the patient's urological care and the results of our further evaluation. Davon Beverly MD 05/22/2020 9:47 Portions of this document may have been prepared with speech recognition software or keyboard micro computer data processor techniques. Minor irregularities or keyboarding misprints may be present. documented in this encounter OR Notes * OR Surgeon - Davon Beverly MD - 05/22/2020 0723 EST OPERATIVE REPORT SERVICE DATE: 05/22/2020 SURGEON: Tracey De La Rosa MD COMBINATION OPERATOR: Davon Beverly MD PREOPERATIVE DIAGNOSIS: Right proximal ureteral stricture with hydronephrosis. POSTOPERATIVE DIAGNOSIS: Right proximal ureteral stricture with hydronephrosis. PROCEDURE: Cystoscopy, right retrograde pyelogram, right ureteral double-J stent insertion. ANESTHESIA: General. ESTIMATED BLOOD LOSS: Minimal. IV FLUIDS: Per anesthesia. URINE OUTPUT: Not measured during the case. SPECIMENS: None. CULTURES: Right kidney fluid. FOREIGN MATERIAL RETAINED: 4.7 right ureteral double-J stent and 16-German Ashby catheter. COMPLICATIONS: None. DISPOSITION: PACU in [...] / Davon Beverly MD / LORETA/MARYLOU Confirmation: [id number] Dictation ID: [id number] cc: Associated attestation - Tracey De La Rosa MD - 05/25/2020 0946 EST Attending attestation: I was present during the entire procedure on 05/22/2020. Tracey De La Rosa MD documented in this encounter ED Notes * Christina Joya RN - 05/22/2020 1131 EST Pt transported to OR at this time. * Christina Joya RN - 05/22/2020 1126 EST Husbands phone number: [phone] * Kathryn Hoffman RN - 05/22/2020 0909 EST 0.5mg Dilaudid IV x 1 for increased abdl pain after assessment. * Gus Schultz MD - 05/22/2020 0820 EST This patient received an evaluation and medical screening exam for emergent medical conditions at the [facility] on 05/22/2020 Scribe attestation: This documentation is recorded by Chetna Bae acting as Scribe under the direction and [...] The patient arrives as a transfer from [facility] for urology consult. The patient reports she woke from sleep last night with right sided flank pain which radiates to her left flank as well as to her right abdomen. She describes the pain as occasionally sharp and occasionally dull. Blessing endorses nausea. At about 0300 this morning, she decided to present to [facility] where she had a CT scan showing persistent right flank hydronephrosis, right stranding related to obstruction, and pyelonephritis. The patient had UA showing 25-50 WBC, moderate bacteria, moderate epithelial cells, and positive nitrites. 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 The patient was transferred to [facility] ED from [place] after phone consultation with Dr. Al who recommended transfer if the patient appeared really sick. The patient was treated with ceftriaxone at [facility] prior to arrival. Of note, the [...] Labs Reviewed COVID-19 TESTING BACTERIAL CULTURE/SMEAR NON FIRE SPRINKLER INSPECTOR/FNA CYTOLOGY Imaging Results None (All pertinent data [...] decompensation. * Kathryn Hoffman RN - 05/22/2020 0737 EST Chief Complaint Patient presents with ??? Abdominal Pain Transfer from [facility] to be seen by urology for ongoing abdl pain r/t known hydronephrosis. Covid (-) this morning. Recent positive Cdiff (1 week ago). documented in this encounter Miscellaneous Notes * Plan of Care - Zulema Weaver RN - 05/25/2020 1719 EST Problem: Daily Care Plan Goals - [...] to monitor for. 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 IV removed. All [...] 22:40 * Pharmacy Note - Jose Savage RPH - 05/24/2020 1557 EST Pharmacy Note: Vancomycin [...] will change vancomycin from 1000mg q12hrs to [id number]. The dosage regimen has been modified to [...] PIV placed at OSH, got okay from [facility] [facility] to use. Does not report anypain. Ambulates [...] For Finances: No TRANSPORTATION: Transportation: Family CULTURAL, YAZDANISM and/or LANGUAGE factors affecting health care/discharge planning: [...] Home Health Services: None DME Provider: Pharmacy: [id number] - [place], [place] - [address] [facility] [address] [facility] [address] [facility] - [place], [place] - [address] [facility] [address] Home Health: Other: POST HOSPITAL TRANSITION PLAN: [...] Blessing lives with her and children in [place]. She is independent at baseline family will pick her up when it's time for discharge MATILDA FRAGOSO 05/23/2020 16:37 * Plan of Care - Yasmeen Petty RN - 05/23/2020 0939 EST Patient has a history of a MDR-GNR infection (click on Inf: MDR-GNR in EPIC banner for details). Please maintain contact precautions for duration of admission. Do not cohort. Please call Infection Prevention with questions ([phone]). Addendum 05/24/20: Per chart notes pt was diagnosed with C difficile at an outside facility. Maintain contact precautions with soap and water handwashing until treatment is complete and Infection Prevention has reviewed case ([id number]). Do not cohort. Yasmeen Petty, Infection Prevention, 05/24/2020 * Plan of Care - Tosin Mcdonnell RN - 05/23/2020 0007 EST Problem: Daily Care Plan Goals Goal: Care Plan Documentation 05/23/2020 000 by Tosin Mcdonnell, RN Flowsheets (Taken 05/22/20201924) Area of Focus: Circulatory Status Goal This Shift: Pt. willl be out of bed this shift Data: [id number]. Now POD#1 Cysto w/ R uretal double [...] antoine and personal items are within reach. [facility]. TOSIN MCDONNELL RN 05/23/2020 0:07 * Pharmacy Note - Mere Smalls RPH - 05/22/2020 2138 EST Pharmacy note: Vancomycin Monitoring - Initial [...] will measure a vancomycin trough concentration on 05/24 AM 4) Pharmacy will continue to monitor patient clinical status daily and evaluate the trough concentration when result available Thank you, Mere Smalls PharmD * Brief Op Note - Davon Beverly MD - 05/22/2020 1256 EST BRIEF OP NOTE Surgeon: Amber De La Rosa MD [place]: Davon Beverly MD Pre-op diagnosis: Right proximal [...] BACTERIAL CULTURE/SMEAR Routine 05/22/2020 12:28 EST NON FIRE SPRINKLER INSPECTOR/FNA CYTOLOGY Routine 05/22/2020 12:28 EST CYSTOSCOPY, WITH URETERAL CATHETER INSERTION 05/22/2020 11:22 EST Hydronephrosis of right kidney CT OUTSIDE IMAGES BODY Routine 05/22/2020 5:28 EST documented in this encounter Results * IMPLANT RECORD - SCANNED (07/03/2020 8:20 EST) 07/03/2020 8:20 EST Scan 2 Civil Cad Designer PROCEDURE/MINOR ELSA GICAL ORDERABLES * IMPLANT RECORD - SCANNED (05/30/2020 7:28 EST) 05/30/2020 7:28 EST Scan 2 Civil Cad Designer PROCEDURE/MINOR ELSA GICAL ORDERABLES * (ABNORMAL) POCT GLUCOSE, INTERFACED (05/25/2020 12:11 EST) Glucose, POC 106(H) 70 - 100 mg/dL 05/25/2020 12:12 EST [facility] dirt contractor ID [id number] 05/25/2020 12:12 EST [facility] HN LAB POC COMMENT (GLUCOSE) Test Performed by Nursing Services 05/25/2020 12:12 EST [facility] Blood CAPILLARY BLOOD / Unknown 05/25/2020 12:11 EST 05/25/2020 12:11 EST Davon Beverly MD POINT OF CARE TEST O SHERIF Performing Organization Address City/[facility]/ZIP Co de Phone Number [facility] [address] [place] [id number] * (ABNORMAL) POCT GLUCOSE, INTERFACED (05/25/2020 9:00 EST) Glucose, POC 123(H) 70 - 100 mg/dL 05/25/2020 12:21 EST [facility] dirt contractor ID [id number] 05/25/2020 12:21 EST [facility] HN LAB POC COMMENT (GLUCOSE) Test Performed by Nursing Services 05/25/2020 12:21 EST [facility] Blood CAPILLARY BLOOD / Unknown 05/25/2020 9:00 EST 05/25/2020 12:21 EST Davon Beverly MD POINT OF CARE TEST O SHERIF [facility] [address] [place] [address] * BUN (05/25/2020 4:15 EST) BUN 11 10 - 26 mg/dL 05/25/2020 5:11 [facility] Blood VENOUS BLOOD / Unknown Venipuncture / Unknown 05/25/2020 4:15 EST 05/25/2020 4:44 EST Boris Nguyen MD CHEMISTRY & BLOOD G ORDERABLES Performing Organization Address City/[facility] de Phone Number [facility] [address] [place] [address] * ELECTROLYTES (05/25/2020 4:15 EST) Sodium 141 136 - 145 mEq/L 05/25/2020 5:11 [facility] Potassium 3.9 3.5 - 5.0 mEq/L 05/25/2020 5:11 [facility] Chloride 101 96 - 110 mEq/L 05/25/2020 5:11 [facility] CO2 Total 31 22 - 32 mEq/L 05/25/2020 5:11 [facility] Blood VENOUS BLOOD / Unknown Venipuncture / Unknown 05/25/2020 4:15 EST 05/25/2020 4:44 EST Boris Nguyen MD CHEMISTRY & BLOOD G ORDERABLES Performing Organization Address City/[facility] Co de Phone Number [facility] [address] [place] [address] * (ABNORMAL) COMPLETE BLOOD COUNT (05/25/2020 4:15 EST) WBC 6.54 4.00 - 12.40 K/cmm 05/25/2020 4:36 [facility] RBC 4.20 3.86 - 5.04 M/cmm 05/25/2020 4:36 [facility] Hemoglobin 12.7 11.6 - 15.2 gm/dL 05/25/2020 4:36 [facility] HCT 36.3 34.9 - 44.4 % 05/25/2020 4:36 [facility] MCV 86 81 - 98 fl 05/25/2020 4:36 [facility] MCH 30.2 26.7 - 33.3 pg 05/25/2020 4:36 [facility] MCHC 35.0 32.1 - 35.9 gm/dL 05/25/2020 4:36 [facility] RDW-CV 13.5 <14.7 % 05/25/2020 4:36 [facility] RDW-SD 41.2 <50.4 fl 05/25/2020 4:36 [facility] PLT 122(L) 141 - 377 K/cmm 05/25/2020 4:36 [facility] MPV 8.3(L) 9.5 - 12.7 fl 05/25/2020 4:36 [facility] Blood VENOUS BLOOD / Unknown Venipuncture / Unknown 05/25/2020 4:15 EST 05/25/2020 4:27 EST Boris Nguyen MD HEMATOLOGY & PF4 OR DERABLES [facility] [address] [place] [address] * CREATININE (05/25/2020 4:15 EST) Creatinine 0.80 0.52 - 1.04 mg/dL 05/25/2020 5:11 [facility] eGFR 87 >60 mL/min/1.7 3m2 05/25/2020 5:11 [facility] Comment:eGFR calculated kimberly grossman CKD-EPI equation for non- Americans. Multiply eGFR by 1.16 for patients. Blood VENOUS BLOOD / Unknown Venipuncture / Unknown 05/25/2020 4:15 EST 05/25/2020 4:44 EST Boris Nguyen MD CHEMISTRY & BLOOD G ORDERABLES Performing Organization Address City/[facility]/ZIP Co de Phone Number [facility] [address] [place] [address] * (ABNORMAL) POCT GLUCOSE, INTERFACED (05/24/2020 20:59 EST) Glucose, POC 139(H) 70 - 100 mg/dL 05/24/2020 21:00 EST [facility] dirt contractor ID [id number] 05/24/2020 21:00 EST [facility] HN LAB POC COMMENT (GLUCOSE) Test Performed by Nursing Services 05/24/2020 21:00 EST [facility] Blood CAPILLARY BLOOD / Unknown 05/24/2020 20:59 EST 05/24/2020 21:00 EST Rajesh Ibarra MD POINT OF CARE TEST ORDERABLES Performing Organization Address [facility] Co de Phone Number [facility] [address] [place] [address] * POCT GLUCOSE, INTERFACED (05/24/2020 18:07 EST) Glucose, POC 98 70 - 100 mg/dL 05/24/2020 18:08 EST [facility] dirt contractor ID [id number] 05/24/2020 18:08 EST [facility] HN LAB POC COMMENT (GLUCOSE) Test Performed by Nursing Services 05/24/2020 18:08 EST [facility] Blood CAPILLARY BLOOD / Unknown 05/24/2020 18:07 EST 05/24/2020 18:08 EST Davon Beverly MD POINT OF CARE TEST O RDERABLES Performing Organization Address City/[facility]/ZIP Co de Phone Number [facility] [address] [place] [address] * (ABNORMAL) POCT GLUCOSE, INTERFACED (05/24/2020 16:36 EST) Glucose, POC 125(H) 70 - 100 mg/dL 05/24/2020 16:37 EST [facility] dirt contractor ID [id number] 05/24/2020 16:37 EST [facility] HN LAB POC COMMENT (GLUCOSE) Test Performed by Nursing Services 05/24/2020 16:37 EST [facility] Blood CAPILLARY BLOOD / Unknown 05/24/2020 16:36 EST 05/24/2020 16:37 EST Davon Beverly MD POINT OF CARE TEST O RDERACHRIS Performing Organization Address [facility] Co de Phone Number [facility] [address] [place] [address] * POCT GLUCOSE, INTERFACED (05/24/2020 12:30 EST) Glucose, POC 93 70 - 100 mg/dL 05/24/2020 12:30 EST [facility] dirt contractor ID [id number] 05/24/2020 12:30 EST [facility] HN LAB POC COMMENT (GLUCOSE) Test Performed by Nursing Services 05/24/2020 12:30 EST [facility] Blood CAPILLARY BLOOD / Unknown 05/24/2020 12:30 EST 05/24/2020 12:30 EST Davon Beverly MD POINT OF CARE TEST O RDERACHRIS Performing Organization Address [facility] Phone Number [facility] [address] [place] [address] * (ABNORMAL) VANCOMYCIN TROUGH (05/24/2020 9:33 EST) Vancomycin Trough 8.3(L) 10.0 - 20.0 ug/mlL 05/24/2020 11:40 EST [facility] Draw Type Peripheral Draw 05/24/2020 11:40 EST [facility] Blood VENOUS BLOOD / Unknown Venipuncture / Unknown 05/24/2020 9:33 EST 05/24/2020 10:42 EST Rajesh Ibarra MD CHEMISTRY & B LOOD GAS ORDERABLES Performing Organization Address City/[facility] Co de Phone Number [facility] [address] [place] [address] * (ABNORMAL) POCT GLUCOSE, INTERFACED (05/24/2020 7:43 EST) Glucose, POC 102(H) 70 - 100 mg/dL 05/24/2020 7:43 [facility] dirt contractor ID [id number] 05/24/2020 7:43 [facility] HN LAB POC COMMENT (GLUCOSE) Test Performed by Nursing Services 05/24/2020 7:43 [facility] Blood CAPILLARY BLOOD / Unknown 05/24/2020 7:43 EST 05/24/2020 7:43 EST Davon Beverly MD POINT OF CARE TEST O RDERABLES Performing Organization Address City/[facility]/ZIP Co de Phone Number [facility] [address] [place] [address] * CREATININE (05/24/2020 4:13 EST) Creatinine 0.81 0.52 - 1.04 mg/dL 05/24/2020 4:49 [facility] eGFR 86 >60 mL/min/1.7 3m2 05/24/2020 4:49 [facility] Comment:eGFR calculated kimberly grossman CKD-EPI equation for non- Americans. Multiply eGFR by 1.16 for patients. Blood VENOUS BLOOD / Unknown Venipuncture / Unknown 05/24/2020 4:13 EST 05/24/2020 4:21 EST Davon Beverly MD CHEMISTRY & BLOOD GA S ORDERABLES [facility] [address] [place] [address] * ELECTROLYTES (05/24/2020 4:13 EST) Sodium 139 136 - 145 mEq/L 05/24/2020 4:49 [facility] Potassium 4.1 3.5 - 5.0 mEq/L 05/24/2020 4:49 [facility] Chloride 101 96 - 110 mEq/L 05/24/2020 4:49 [facility] CO2 Total 27 22 - 32 mEq/L 05/24/2020 4:49 [facility] Blood VENOUS BLOOD / Unknown Venipuncture / Unknown 05/24/2020 4:13 EST 05/24/2020 4:21 EST Davon Beverly MD CHEMISTRY & BLOOD GA S ORDERABLES Performing Organization Address City/State/[facility] Co de Phone Number [facility] [address] [place] [address] * (ABNORMAL) COMPLETE BLOOD COUNT (05/24/2020 4:13 EST) WBC 7.74 4.00 - 12.40 K/cmm 05/24/2020 4:30 [facility] RBC 4.17 3.86 - 5.04 M/cmm 05/24/2020 4:30 [facility] Hemoglobin 12.8 11.6 - 15.2 gm/dL 05/24/2020 4:30 [facility] HCT 36.5 34.9 - 44.4 % 05/24/2020 4:30 [facility] MCV 88 81 - 98 fl 05/24/2020 4:30 [facility] MCH 30.7 26.7 - 33.3 pg 05/24/2020 4:30 [facility] MCHC 35.1 32.1 - 35.9 gm/dL 05/24/2020 4:30 [facility] RDW-CV 13.8 <14.7 % 05/24/2020 4:30 [facility] RDW-SD 42.9 <50.4 fl 05/24/2020 4:30 [facility] PLT 122(L) 141 - 377 K/cmm 05/24/2020 4:30 [facility] MPV 8.4(L) 9.5 - 12.7 fl 05/24/2020 4:30 [facility] Blood VENOUS BLOOD / Unknown Venipuncture / Unknown 05/24/2020 4:13 EST 05/24/2020 4:19 EST Davon Beverly MD HEMATOLOGY & PF4 ORD ERABLES [facility] [address] [place] [address] * (ABNORMAL) POCT GLUCOSE, INTERFACED (05/23/2020 21:23 EST) Glucose, POC 126(H) 70 - 100 mg/dL 05/23/2020 21:24 EST [facility] dirt contractor ID [id number] 05/23/2020 21:24 EST [facility] HN LAB POC COMMENT (GLUCOSE) Test Performed by Nursing Services 05/23/2020 21:24 EST [facility] Blood CAPILLARY BLOOD / Unknown 05/23/2020 21:23 EST 05/23/2020 21:24 EST Davon Beverly MD POINT OF CARE TEST O RDERABLES Performing Organization Address City/[facility]/ZIP Co de Phone Number [facility] [address] [place] [address] * POCT GLUCOSE, INTERFACED (05/23/2020 18:16 EST) Glucose, POC 87 70 - 100 mg/dL 05/23/2020 21:24 EST [facility] dirt contractor ID [id number] 05/23/2020 21:24 EST [facility] HN LAB POC COMMENT (GLUCOSE) Test Performed by Nursing Services 05/23/2020 21:24 EST [facility] Blood CAPILLARY BLOOD / Unknown 05/23/2020 18:16 EST 05/23/2020 21:24 EST Davon Beverly MD POINT OF CARE TEST O RDERABLES Performing Organization Address City/[facility]/ZIP Co de Phone Number [facility] [address] [place] [address] * (ABNORMAL) POCT GLUCOSE, INTERFACED (05/23/2020 13:13 EST) Glucose, POC 105(H) 70 - 100 mg/dL 05/23/2020 13:18 EST [facility] dirt contractor ID [id number] 05/23/2020 13:18 EST [facility] HN LAB POC COMMENT (GLUCOSE) Test Performed by Nursing Services 05/23/2020 13:18 EST [facility] Blood CAPILLARY BLOOD / Unknown 05/23/2020 13:13 EST 05/23/2020 13:17 EST Davon Beverly MD POINT OF CARE TEST O RDERABLES [facility] [address] [place] [address] * (ABNORMAL) POCT GLUCOSE, INTERFACED (05/23/2020 9:11 EST) Glucose, POC 112(H) 70 - 100 mg/dL 05/23/2020 9:14 EST [facility] dirt contractor ID [id number] 05/23/2020 9:14 EST [facility] HN LAB POC COMMENT (GLUCOSE) Test Performed by Nursing Services 05/23/2020 9:14 EST [facility] Blood CAPILLARY BLOOD / Unknown 05/23/2020 9:11 EST 05/23/2020 9:14 EST Davon Beverly MD POINT OF CARE TEST O RDERABLES [facility] [address] [place] [address] * (ABNORMAL) GLUCOSE, SERUM (05/23/2020 4:02 EST) Glucose 104(H) 70 - 100 mg/dL 05/23/2020 4:43 EST [facility] Blood VENOUS BLOOD / Unknown Venipuncture / Unknown 05/23/2020 4:02 EST 05/23/2020 4:06 EST Davon Beverly MD CHEMISTRY & BLOOD GA S ORDERABLES Performing Organization Address City/[facility] Co de Phone Number [facility] [address] [place] [address] * CREATININE (05/23/2020 4:02 EST) Creatinine 0.88 0.52 - 1.04 mg/dL 05/23/2020 4:43 EST [facility] eGFR 78 >60 mL/min/1.7 3m2 05/23/2020 4:43 EST [facility] Comment:eGFR calculated kimberly grossman CKD-EPI equation for non- Americans. Multiply eGFR by 1.16 for patients. Blood VENOUS BLOOD / Unknown Venipuncture / Unknown 05/23/2020 4:02 EST 05/23/2020 4:06 EST Davon Beverly MD CHEMISTRY & BLOOD GA S ORDERABLES Performing Organization Address [facility] Co de Phone Number [facility] [address] [place] [address] * BUN (05/23/2020 4:02 EST) BUN 14 10 - 26 mg/dL 05/23/2020 4:43 EST [facility] Blood VENOUS BLOOD / Unknown Venipuncture / Unknown 05/23/2020 4:02 EST 05/23/2020 4:06 EST Davon Beverly MD CHEMISTRY & BLOOD GA S ORDERABLES Performing Organization Address City/[facility] Co de Phone Number [facility] [address] [place] [address] * ELECTROLYTES (05/23/2020 4:02 EST) Sodium 138 136 - 145 mEq/L 05/23/2020 4:43 EST [facility] Potassium 4.3 3.5 - 5.0 mEq/L 05/23/2020 4:43 EST [facility] Chloride 103 96 - 110 mEq/L 05/23/2020 4:43 EST [facility] CO2 Total 26 22 - 32 mEq/L 05/23/2020 4:43 [facility] Blood VENOUS BLOOD / Unknown Venipuncture / Unknown 05/23/2020 4:02 EST 05/23/2020 4:06 EST Davon Beverly MD CHEMISTRY & BLOOD GA S ORDERABLES [facility] [address] [place] [address] * (ABNORMAL) COMPLETE BLOOD COUNT (05/23/2020 4:02 EST) WBC 7.46 4.00 - 12.40 K/cmm 05/23/2020 4:14 [facility] RBC 4.06 3.86 - 5.04 M/cmm 05/23/2020 4:14 [facility] Hemoglobin 11.9 11.6 - 15.2 gm/dL 05/23/2020 4:14 [facility] HCT 35.8 34.9 - 44.4 % 05/23/2020 4:14 [facility] MCV 88 81 - 98 fl 05/23/2020 4:14 [facility] MCH 29.3 26.7 - 33.3 pg 05/23/2020 4:14 [facility] MCHC 33.2 32.1 - 35.9 gm/dL 05/23/2020 4:14 [facility] RDW-CV 14.0 <14.7 % 05/23/2020 4:14 [facility] RDW-SD 44.9 <50.4 fl 05/23/2020 4:14 [facility] PLT 111(L) 141 - 377 K/cmm 05/23/2020 4:14 [facility] MPV 8.6(L) 9.5 - 12.7 fl 05/23/2020 4:14 [facility] Blood VENOUS BLOOD / Unknown Venipuncture / Unknown 05/23/2020 4:02 EST 05/23/2020 4:07 EST Davon Beverly MD HEMATOLOGY & PF4 ORD ERABLES Performing Organization Address [facility] Co de Phone Number [facility] [address] [place] [address] * VANCOMYCIN, RANDOM (05/23/2020 1:03 EST) Vancomycin Random 12.3 See Note ug/mL 05/23/2020 1:42 EST [facility] Comment: NOTE: Reference Ranges: Trough: ??10.0 - 20.0 ug/mL Peak: ??25.0 - 50.0 ug/mL Blood VENOUS BLOOD / Unknown Venipuncture / Unknown 05/23/2020 1:03 EST 05/23/2020 1:13 EST Rajesh Ibarra MD CHEMISTRY & B LOOD GAS ORDERABLES Performing Organization Address [facility] Co de Phone Number [facility] [address] [place] [address] * POCT GLUCOSE, INTERFACED (05/22/2020 21:33 EST) Glucose, POC 95 70 - 100 mg/dL 05/22/2020 21:34 EST [facility] dirt contractor ID [id number] 05/22/2020 21:34 EST [facility] HN LAB POC COMMENT (GLUCOSE) Test Performed by Nursing Services 05/22/2020 21:34 EST [facility] Blood CAPILLARY BLOOD / Unknown 05/22/2020 21:33 EST 05/22/2020 21:34 EST Davon Beverly MD POINT OF CARE TEST O RDERABLES Performing Organization Address City/[facility] Co de Phone Number [facility] [address] [place] [address] * CREATININE (05/22/2020 20:48 EST) Creatinine 0.93 0.52 - 1.04 mg/dL 05/22/2020 21:18 EST [facility] eGFR 73 >60 mL/min/1.7 3m2 05/22/2020 21:18 [facility] Comment:eGFR calculated kimberly grossman CKD-EPI equation for non- Americans. Multiply eGFR by 1.16 for patients. Blood VENOUS BLOOD / Unknown Venipuncture / Unknown 05/22/2020 20:48 EST 05/22/2020 21:00 EST Boris Nguyen MD CHEMISTRY & BLOOD G ORDERABLES Performing Organization Address [facility] Co de Phone Number [facility] [address] [place] [address] * POCT GLUCOSE, INTERFACED (05/22/2020 17:25 EST) Glucose, POC 86 70 - 100 mg/dL 05/22/2020 17:26 EST [facility] dirt contractor ID [id number] 05/22/2020 17:26 EST [facility] HN LAB POC COMMENT (GLUCOSE) Test Performed by Nursing Services 05/22/2020 17:26 [facility] Blood CAPILLARY BLOOD / Unknown 05/22/2020 17:25 EST 05/22/2020 17:26 EST Davon Beverly MD POINT OF CARE TEST O RDERABLES Performing Organization Address [facility] Co de Phone Number [facility] [address] [place] [address] * FL C-ARM RETROGRADE (05/22/2020 12:54 EST) Narrative 05/22/2020 13:10 EST This is a non-reportable exam. Tracey De La Rosa MD IMG OTHER IMAGING OR DERABLES * (ABNORMAL) BACTERIAL CULTURE/SMEAR (05/22/2020 12:28 EST) Organism ID No Growth 05/27/2020 8:52 EST [facility] Smear Neutrophils Present(A) 05/27/2020 8:52 [facility] Smear Gram Positive Cocci(A) 05/27/2020 8:52 [facility] Comment:Results reviewed by supervisory staff. Fluid ENTIRE URETER / Unknown 05/22/2020 12:28 EST 05/22/2020 13:03 EST Tracey De La Rosa MD MICROBIOLOGY - GENER AL ORDERABLES [facility] [address] [place] [address] * NON FIRE SPRINKLER INSPECTOR/FNA CYTOLOGY (05/22/2020 12:28 EST) Final Diagnosis URINE, VOIDED, CYTOLOGIC EVALUATION: - Negative for high grade urothelial carcinoma. - Low volume of specimen submitted (1 cm). See comment. - Background contains acute inflammation and scattered red blood cells. 05/23/2020 12:33 [facility] Diagnosis Comment Based on literature, volumes less than 25 ml have been associated with lower detection rate of high grade urothelial carcinoma in voided urine. A repeat urine sample may be indicated. 05/23/2020 12:33 [facility] Attestation By the signature below, the attending physician certifies that they have personally conducted a gross and/or microscopic examination of the described specimens and rendered or confirmed the above diagnosis. 05/23/2020 12:33 [facility] at 1233 Clinical History See order requisition. 05/23/2020 12:33 [facility] Gross Description A. 1cc of clear yellow fluid was received and processed by selective cellular enhancement technique. 05/23/2020 12:33 [facility] Performing Lab [facility] 05/23/2020 12:33 [facility] Scanned Images 05/23/2020 12:33 [facility] Fluid VOIDED URINE SPECIMEN / Unknown 05/22/2020 12:28 EST 05/22/2020 14:32 EST Tracey De La Rosa MD PATHOLOGY ORDERABLES [facility] [address] [place] [address] * CT OUTSIDE IMAGES BODY (05/22/2020 5:28 EST) Narrative 05/22/2020 5:28 EST This is a non-reportable exam. Provider Unknown MD SANTOS OTHER IMAGING OR DERABLES documented in this encounter Visit Diagnoses Diagnosis Hydronephrosis of right kidney- Primary Hydronephrosis Hydronephrosis of right kidney Hydronephrosis Ureteral stricture, right Stricture or kinking of ureter Ureteral stricture, right Stricture or kinking of ureter documented in [...] mg Given 05/23/2020 8:15 EST 25 mg cefTRIAXone (ROCEPHIN) 1,000 mg in sodium chloride (NS MBP) 50 mL IVPB 1,000 mg, intravenous, Administer over 30 Minutes, NOW X1, 1 dose, On Fri05/22/20 at 1100, Type of Therapy: Empiric, Suspected Indication (Select all that apply): UTI or pyelonephritis, ID Consult: No, Routine New Bag 05/22/2020 11:05 EST 1,000 mg cefTRIAXone (ROCEPHIN) 2,000 mg in sodium chloride (NS MBP) 50 mL IVPB 2,000 mg, intravenous, Administer over 30 Minutes, DAILY, 7 doses, First dose on Fri05/23/20 at 0900, Last dose on Fri05/29/20 at 0900, Type of Therapy: Empiric, Suspected Indication (Select all that apply): UTI or pyelonephritis, ID Consult: No, Routine Given 05/24/2020 9:44 EST 2,000 m g Given 05/23/2020 8:15 EST 2,000 mg cephalexin (KEFLEX) capsule 500 mg 500 [...] mg Given 05/22/2020 21:35 EST 100 mg fentaNYL citrate (PF) injection 25-50 mcg 25-50 mcg, intravenous, EVERY 5 MIN PRN, Starting on Fri05/22/20 at 1314, Until Fri05/22/20 at 1553, Pain, Routine, Recovery (only) Given 05/22/2020 1 3:25 EST 50 mcg gabapentin (NEURONTIN) capsule 400 mg 400 mg, [...] Units Given 05/24/2020 9:49 EST 5,000 Units HYDROmorphone (DILAUDID) tablet 2-4 mg 2-4 mg, oral, EVERY 30 MINUTES PRN, 2 doses, Starting on Fri05/22/20 at 1314, Until Fri05/22/20 at 1553, Pain, Routine, Recovery (only) Given 05/22/2020 13:25 EST 4 mg HYDROmorphone (PF) (DILAUDID) 0.5 mg/0.5 mL syringe 0.5 mg 0.5 mg, intravenous, NOW X1, 1 dose, On Fri05/22/20 at 0900, STAT Given 05/22/2020 9:06 EST 0.5 mg lactated ringers (LR) infusion at 125 mL/hr, intravenous, CONTINUOUS, Starting on Fri05/22/20 at 1000, Until Fri05/24/20 at 1440, STAT Continued by Anesthesia 05/22/2020 11:45 EST New Bag 05/22/2020 10:00 EST 125 mL/hr lactated ringers (LR) infusion 100 mL/hr, intravenous, CONTINUOUS, Starting on Fri05/22/20 at 1345, Until Fri05/24/20 at 1440, Routine New Bag 05/24/2020 2:05 EST 100 mL/hr 100 mL/hr New Bag 05/22/2020 22:55 EST 100 mL/hr 100 mL/hr New Bag 05/22/2020 14:07 EST 100 mL/hr 100 mL/hr melatonin tablet 5 mg 5 mg, oral, [...] 05/23/2020 8:14 EST 40 mg phenazopyridine (PYRIDIUM) 100 mg tablet 1 dose, Starting on Fri05/22/20 at 1319, Until Fri05/22/20 at 1325 phenazopyridine (PYRIDIUM) tablet 200 mg 200 mg, [...] 1635, Until Fri05/25/20 at 1919, Nausea, Routine vancomycin (VANCOCIN) 1,250 mg in dextrose 5% [...] mg Given 05/24/2020 21:01 EST 125 mg vancomycin (VANCOCIN) IVPB 1,000 mg 1,000 mg, intravenous, Administer over 60 Minutes, EVERY 12 HOURS, 14 doses, First dose on Fri05/22/20 at 2145, Last dose on Fri05/29/20 at 0945, Type of Therapy: Definitive, Based on Cultures, Suspected Indication (Select all that apply): Other, Other Indication: gram positive cocci renal fluid, ID Consult: No, STAT Given 05/24/2020 10:48 EST 1,000 mg Given 05/23/2020 22:42 EST 1,000 mg Given 05/23/2020 9:31 EST 1,000 mg documented in this encounter Discontinued Medications [...] Last dose on Fri05/31/20 at 0900, Routine 2100 (Given - Provider: Lorene Walsh RN) 0851 (Given - Provider: Zulema Weaver RN) diclofenac (VOLTAREN) EC tablet 50 mg 50 mg, oral, 2 TIMES DAILY, First dose on Fri05/22/20 at 2100, Until Discontinued, Routine 0812 (Given - Provider: Roxana José RN)2124 (Given - Provider: Lorene Walsh RN) 0949 (Given - Provider: Sonam Bran RN)210 (Given - Provider: Lorene Walsh RN) 0851 (Given - Provider: Zulema Weaver, ALEXA) docusate sodium (COLACE) capsule 100 mg 100 [...] Discontinued, Routine 0814 (Given - Provider: Roxana Arnav, RN)1319 (Given - Provider: Roxana José RN)2125 (Given - Provider: Lorene Walsh RN) 0949 (Given - Provider: Sonam Bran RN)1502 (Given - Provider: Rosibel Townsend RN)2101 (Given - Provider: Lorene Walsh RN) 0851 (Given - Provider: Zulema Weaver RN)1453 (Given - Provider: Zulema Weaver RN) heparin injection 5,000 Units 5,000 Units, subcutaneous, EVERY 12 HOURS, First dose on Fri05/22/20 at 2100, Until Discontinued, Routine 0816 (Given - Provider: Roxana José RN)212 (Given - Provider: Lorene Walsh RN) 0949 (Given - Provider: Sonam Bran RN)210 (Given - Provider: Lorene Walsh RN) 0852 [...] dose on Fri05/22/20 at 2100, Until Discontinued 813 (Given - Provider: Roxana José RN)2124 (Given - Provider: Lorene Walsh RN) 948 (Given - Provider: Sonam Bran RN)2102 (Given - Provider: Lorene Walsh RN) 0851 (Given - Provider: Zulema Weaver, RN) pantoprazole (PROTONIX) tablet 40 mg 40 mg, oral, DAILY, First dose on Fri05/22/20 at 1700, Until Discontinued, Routine 813 (Given - Provider: Roxana José RN) 0949 (Given - Provider: Sonam Bran, RN) 0851 (Given - Provider: Zulema Weaver, ALEXA) vancomycin (VANCOCIN) 1,250 mg in dextrose 5% [...] 2099 (Given - Provider: Lorene Walsh RN) 851 (Given - Provider: Zulema Weaver RN) vancomycin (VANCOCIN) capsule 125 mg 125 mg, oral, 4 TIMES DAILY, 16 doses, First dose on Fri05/22/20 at 1700, Last dose on Fri05/26/20 at 1200, Type of Therapy: Definitive, Based on Cultures, Suspected Indication (Select all that apply): Clostridioides difficile diarrhea, ID Consult: No, Routine 0815 (Given - Provider: Roxana José RN)1319 (Given - Provider: Roxana José RN)1655 (Given - Provider: Rosibel Townsend RN)2125 (Given - Provider: Lorene Walsh RN) 0739 [...] 0055 (Trough Due - Provider: Mere Smalls [facility] - Comment: please draw vanco level at 0055 (two hours after the end of the infusion) Thank you!)0931 (Given - Provider: Roxana José RN)2242 (Given - Provider: Lorene Walsh RN) 0915 (Trough Due - Provider: Jose Savage [facility] - Comment: please draw trough before 0945 [...] Routine 0205 (New Bag - Provider: Lorene Walsh, ALEXA)0944 (Paused - Provider: Sonam Bran RN - Comment: not compatible with ceftriaxone, paused until IV abx complete)1311 (IV Resume - Provider: Rosibel Townsend RN)1501 (Completed - Provider: Rosibel Townsend RN) PRN Medication Order 05/23/2020 05/24/2020 05/25/2020 acetaminophen (TYLENOL) suppository 650 mg(Linked Group 1) 650 mg, rectal, EVERY 4 HOURS PRN, Starting on Fri05/22/20 at 1635, Until Fri05/25/20 at 1919, Pain, Routine acetaminophen (TYLENOL) tablet 650 mg(Linked Group 1) 650 mg, oral, EVERY 4 HOURS PRN, Starting on Fri05/22/20 at 1635, Until Fri05/25/20 at 1919, Pain, Routine bisacodyL (DULCOLAX) suppository 10 mg 10 mg, rectal, DAILY PRN, Starting on Fri05/22/20 at 1635, Until Fri05/25/20 at 1919, Constipation, Routine dextrose 50 % [...] 1316, Until Fri05/25/20 at 1919, Pain, Routine promethazine (PHENERGAN) suppository [...] Count Last Ordered Date First Ordered Date acetaminophen (TYLENOL) solu tion unit dose cup 995 mg 1 05/22/2020 acetaminophen (TYLENOL) suppository 650 mg 1 05/22/2020 acetaminophen (TYLENOL) tablet 1,000 mg 1 0 05/22/2020 atropine 0.1 mg/mL syringe 0.5 mg 1 021 bisacodyL (DULCOLAX) suppository 10 mg 1 dextrose 50 % solution 12.5 g 1 05/22/2020 glucagon injection 1 mg 1 05/22/2020 HYDROmorphone (PF) (DILAUDID ) 0.5 mg/0.5 mL syringe 0.3-0.5 mg 1 05/22/2020 insulin aspart U-100 (NOVOLO G FLEXPEN) injection 2 05/22/2020 lactated ringers (LR) infusion 1 05/22/2020 naloxone (NARCAN) injection 0.2 mg 1 2020 ondansetron (PF) (ZOFRAN) injection 4 mg 2 05/22/2020 ondansetron (ZOFRAN-ODT) dis integrating tablet 4 mg 1 05/22/2020 promethazine (PHENERGAN) sup pository 12.5 mg 1 05/22/2020 promethazine (PHENERGAN) tablet 12.5 mg 1 0 05/22/2020 sodium chloride (NS) 0.9 % 5 0 mL with iohexoL (OMNIPAQUE 300) 50 mL 1 05/22/2020 sodium chloride 0.9 % irrigation 1 05/22/19 21 Nursing Count Last Ordered Date First Orde [...] documented as of this encounter Care Teams Head Butler Relationship Specialty Start Date End Date Sera Gay FNP [address] [place] [address] PCP - General 09/02/13 10/31/22 documented as of this encounter
--- OUTSIDE RECORDS SUMMARY | 2023-12-18 00:15 | XMS_ITS | Encounter Summary ---
Author Organization [facility] Address [address] [place] [address] Care Team Providers Care Application Support Consultant Name Role Phone Victor Hugo Sera Tommy STEINER Primary Care Provider + Reason for Visit * Reason Onset Date Comments Orders (Non Pre-visit) 05/29/2020 Encounter Details Date Type Department Care Team (Late st Contact Info) Description 05/29/2020 Orders Only [facility] Urology - [address] [phone] Hao Rodríguez MD [address] [facility], Level [address] [place] [address] Pre-op testing (Primary Dx) Social History Tobacco Use Types [...] documented as of this encounter Results * PRE-OP BLOOD BANK DRAW (05/29/2020 13:11 EST) Hold BB Spec will exp at 23:59, 3 days from collect date 05/29/2020 20:31 EST [facility] BLOOD [facility] Blood VENOUS BLOOD / Unknown Venipuncture / Unknown 05/29/2020 13:11 EST 05/29/2020 13:18 EST Hao Rodríguez MD BLOOD BANK TESTS Performing Organization Address City/State/[facility] Co de Phone Number [facility]LOOD [facility] [address] [place] [address] * (ABNORMAL) COMPLETE BLOOD COUNT (05/29/2020 13:11 EST) WBC 7.45 4.00 - 12.40 K/cmm 05/29/2020 13:41 [facility] RBC 4.37 3.86 - 5.04 M/cmm 05/29/2020 13:41 [facility] Hemoglobin 13.2 11.6 - 15.2 gm/dL 05/29/2020 13:41 [facility] HCT 38.7 34.9 - 44.4 % 05/29/2020 13:41 [facility] MCV 89 81 - 98 fl 05/29/2020 13:41 [facility] MCH 30.2 26.7 - 33.3 pg 05/29/2020 13:41 [facility] MCHC 34.1 32.1 - 35.9 gm/dL 05/29/2020 13:41 [facility] RDW-CV 13.8 <14.7 % 05/29/2020 13:41 [facility] RDW-SD 44.2 <50.4 fl 05/29/2020 13:41 [facility] PLT 149 141 - 377 K/cmm 05/29/2020 13:41 [facility] MPV 8.4(L) 9.5 - 12.7 fl 05/29/2020 13:41 [facility] Blood VENOUS BLOOD / Unknown Venipuncture / Unknown 05/29/2020 13:11 EST 05/29/2020 13:32 EST Hao Rodríguez MD HEMATOLOGY & PF4 ORDERABLES Performing Organization Address City/State/[facility] Co de Phone Number [facility] [address] [place] [address] * (ABNORMAL) COMPREHENSIVE METABOLIC PANEL (CMP) (05/29/2020 13:11 EST) Sodium 140 136 - 145 mEq/L 05/29/2020 14:00 [facility] Potassium 4.1 3.5 - 5.0 mEq/L 05/29/2020 14:00 [facility] Chloride 101 96 - 110 mEq/L 05/29/2020 14:00 [facility] CO2 Total 28 22 - 32 mEq/L 05/29/2020 14:00 [facility] Glucose 105(H) 70 - 100 mg/dL 05/29/2020 14:00 [facility] BUN 14 10 - 26 mg/dL 05/29/2020 14:00 [facility] Creatinine 0.76 0.52 - 1.04 mg/dL 05/29/2020 14:00 [facility] eGFR 93 >60 mL/min/1.7 3m2 05/29/2020 14:00 [facility] Comment:eGFR calculated kimberly g CKD-EPI equation for non- Americans. Multiply eGFR by 1.16 for patients. Total Protein 7.3 6.3 - 8.2 g/dL 05/29/2020 14:00 [facility] Albumin 4.2 3.4 - 4.9 g/dL 05/29/2020 14:00 [facility] Alkaline Phosphatase 95 38 - 126 U/L 05/29/2020 14:00 [facility] AST 78(H) 15 - 46 U/L 05/29/2020 14:00 [facility] ALT 52(H) <35 U/L 05/29/2020 14:00 [facility] Bilirubin, Total <0.5 <1.4 mg/dL 05/29/19 14:00 [facility] Calcium 9.4 8.5 - 10.5 mg/dL 05/29/2020 14:00 [facility] Calculated Calcium 9.2 8.5 - 10.5 mg/dL 05/29/2020 14:00 [facility] Blood VENOUS BLOOD / Unknown Venipuncture / Unknown 05/29/2020 13:11 EST 05/29/2020 13:32 EST Hao Rodríguez MD CHEMISTRY & BLOOD GAS ORDERABLES [facility] [address] [place] [address] * BACTERIAL CULTURE, URINE (05/29/2020 13:03 EST) Organism ID Less than 10,000 CFU/ml Usual urogenital pedro. 05/30/2020 13:01 [facility] Urine URINE SPECIMEN COLLECTION, CLEAN CATCH / Unknown Urine Collect / Unknown 05/29/2020 13:03 EST 05/29/2020 13:40 EST Hao Rodríguez MD MICROBIOLOGY - [facility] ORDERABLES [facility] [address] [place] [address] documented in this encounter Visit Diagnoses Diagnosis Pre-op testing- Primary Preoperative examination, unspecified documented in this encounter [...] documented as of this encounter Care Teams Application Support Consultant Relationship Specialty Start Date End Date Sera Gay FNP [address] [place] [address] PCP - General 09/02/13 10/31/22 documented as of this encounter
--- OUTSIDE RECORDS SUMMARY | 2023-12-18 00:16 | XMS_ITS | Encounter Summary ---
Author Organization [facility] Address [address] [place] [address] Care Team Providers Care E Commerce Developer Name Role Phone Victor HugoSera Tommy STEINER Primary Care Provider + Reason for Referral * Radiology Services (Routine) - Closed Specialty Diagnoses / Procedures Referred By Alessandroac t Referred To Contact Nuclear Medicine Diagnoses Hydronephrosis, unspecified hydronephrosis type Procedures NM RENAL FLOW/FUNCTION W PHAR INTERVENTION Rajesh Ibarra MD [address] [place] [address] Referral ID Status Reason Start Date Expiration Date Visits Re quested Visits Authorized [id number] Closed 11/29/2019 1 1 Reason for Visit * Radiology Services (Routine) - Closed Specialty Diagnoses / Procedures Referred By Claudio quinteros Referred To Contact Nuclear Medicine Diagnoses Hydronephrosis, unspecified hydronephrosis type Procedures NM RENAL FLOW/FUNCTION W PHAR INTERVENTION Rajesh Ibarra MD [address] [place] [address] Referral ID Status Reason Start Date Expiration Date Visits Re quested Visits Authorized [id number] Closed 11/29/2019 1 1 Encounter Details Date Type Department Care Team (Latest Contact Info) Description 12/06/2019 11:30 EDT - 12/06/2019 23:59 EDT Hospital Encounter edical Center Radiology Nuclear Medicine and PET - [facility] [address] [place], [place] [id number] Hydronephrosis, unspecified hydronephrosis type Discharge Disposition: Home or Self Care Social [...] No 01/27/2018 documented as of this encounter Medications at [...] Max: 12 mg 10 Tab 04/13/2018 05/25/2020 documented as of this encounter Discharge Disposition Disposition Code Departure Means Destination Home or Self Care documented in this encounter Plan of Treatment Not on file documented as of this encounter Procedures Procedure Name Priority Date/Time Associated Diagnosis Comments NM RENAL FLOW/FUNCTION W PHAR INTERVENTION Routine 12/06/2019 13:12 EDT Hydronephrosis, unspecified hydronephrosis type documented in this encounter Results * NM RENAL FLOW/FUNCTION W PHAR INTERVENTION (12/06/2019 13:12 EDT) Anatomical Region Laterality Modality Abdomen Nuclear Medicine 12/06/2019 15:0 7 EDT Impressions 12/06/2019 15:07 EDT Mild delay in washout from mildly dilated collecting system in the right kidney. 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 Horizontal axis of the right kidney, unchanged from comparison CTs. Narrative 12/06/2019 15:07 EDT NM RENAL FLOW/FUNCTION W PHAR INTERVENTION ??12/06/2019 12:00 PM Signs and Symptoms: ??hydronephrosis Comparison: CT November 20, 2019 Technique: After simultaneous intravenous injection of 25 mg Furosemide and 5 mCi Tc-99m MAG-3, a renal flow study with 2 second images for 1 minute, followed by sequential dynamic 30 second images for 30 minutes were obtained in posterior projection. Renogram time activity curves were performed. Findings: Left kidney: Normal flow, normal parenchymal uptake and normal parenchymal transit. No evidence of hydronephrosis. Normal washout from the collecting system. Right kidney: Horizontal axis of the right kidney. Normal flow. Normal parenchymal uptake. ??Normal parenchymal transit. Mild dilatation of the renal pelvis with mild delay in washout. Time to peak (min): ??left kidney 4.5; right kidney 7.5 T 1/2 (min): left kidney 9.5; right kidney 15 Differential % split function cannot be adequately calculated due difference in positions of the kidneys. Procedure Note Niall Holbrook MD - 12/06/2019 NM RENAL FLOW/FUNCTION W PHAR INTERVENTION 12/06/2019 12:00 PM Signs and Symptoms: hydronephrosis Comparison: CT November 20, 2019 Technique: After simultaneous intravenous injection of 25 mg Furosemide and 5 mCiTc-99m MAG-3, a renal flow study with 2 second images for 1 minute,followed by sequential dynamic 30 second images for 30 minutes wereobtained in posterior projection. Renogram time activity curves wereperformed. Findings: Left kidney: Normal flow, normal parenchymal uptake and normal parenchymaltransit. No evidence of hydronephrosis. Normal washout from the collectingsystem. Right kidney: Horizontal axis of the right kidney. Normal flow. Normalparenchymal uptake. Normal parenchymal transit. Mild dilatation of therenal pelvis with mild delay in washout. Time to peak (min): left kidney 4.5; right kidney 7.5 T 1/2 (min): left kidney 9.5; right kidney 15 Differential % split function cannot be adequately calculated duedifference in positions of the kidneys. IMPRESSION Mild delay in washout from mildly dilated collecting system in the rightkidney. 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 Horizontal axis of the right kidney, unchanged from comparison CTs. Rajesh Ibarra MD IM NM ORDERA BLES documented in this encounter Visit Diagnoses Diagnosis Hydronephrosis, unspecified hydronephrosis type documented in this encounter Administered Medications Inactive Administered Medications - up to 3 most recent administrations Medication Order MAR Action Action Date Dose Rate Site furosemide (LASIX) injection 10 mg 10 mg, intravenous, Once in imaging, 1 dose, Starting on Fri12/06/19 at 1310, Until Fri12/06/19 at 1205, Routine, Imaging Protocol Orders Given 12/06/2019 12:05 EDT 25 mg technetium (Tc-99m) mertiatide (MAG3) injection 5 millicurie 5 millicurie, intravenous, NOW X1, 1 dose, On 12/06/19 at 1330, Routine, Imaging Protocol Orders Given 12/06/2019 12:10 EDT 5.2 millicuries documented in this encounter Additional Health Concerns Infection Onset Date Last Indicated Resolved Time MDR-GNR Comment:IP Note: 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
--- OUTSIDE RECORDS SUMMARY | 2023-12-18 00:16 | XMS_ITS | Encounter Summary ---
Author Organization [facility] Address [address] [place] [address] Care Team Providers Care Pet Care Attendant Name Role Phone Sera Gay Primary Care Provider + Reason for Visit * Reason Comments Nephrolithiasis * Consult (Routine) - Closed Specialty Diagnoses / Procedures [facility] Referred To Contact Urology Diagnoses Obstruction, urethra Kidney stones Sera Gay FNP [address] [place] [phone] [place] [address] [address]rology [address] [place] [address] Referral ID Status Reason Start Date Expiration Date Visits Re quested Visits Authorized [id number] Closed 1 1 Encounter Details Date Type Department Care Team (Latest Contact Info) Description 01/27/2018 14:15 EDT Office Visit [facility] Urology - [facility] [place] [address] [place], [place] [phone] Rajesh Ibarra MD [address] [place] [phone] Kidney stone (Primary Dx); Hydronephrosis, unspecified hydronephrosis type; Pyelonephritis Discharge Disposition: Auto Discharge Social History Tobacco Use Types Packs/Day Years [...] as visiting a doctor's office or shopping? No 01/27/2018 Cognitive Status Response Date of Assessm ent Because of a physical, menta l, or emotional condition, does this person have serious difficulty concentrating, remembering, or making decisions? 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 20 Tab 01/27/2018 03/10/2018 documented in this encounter Discharge Disposition Disposition Code Departure Means Destination Auto Discharge documented in this encounter Progress Notes * Rajesh Ibarra - 01/27/2018 1415 EDT This is a 47-year-old female who I last saw in 2016 after staged interventions for large bilateral stone burdens. She had been doing well since the procedure and her stone composition at the time was70% calcium oxalate monohydrate and 30% calcium phosphate apatite. It does not seem like we have followed up on a metabolic evaluation and recently she developed acute onset of right flank pain. She developed fever as well in the emergency department and CT imaging was obtained, which I spent time reviewing with Blessing and her . There is significant right nephromegaly with a large amount of perinephric stranding and some mild ureteral dilatation. There was concern for some soft tissue mid u reteral abnormal areas as well. Additionally, there are several nonobstructing lower pole stones aswell as a few nonobstructing small stones on the left side. The left side was the side that required percutaneous treatment in the past. Per her report, she had E. coli and klebsiella on positive culture and was given amoxicillin. She is still having intermittent fevers and discomfort. On exam, she is not toxic appearing. She is alert and oriented x3, not in acute distress. Abdomen is overweight, mild right flank tenderness. No tenderness in the left side. Her urine today remains nitrate positive with 1+ leukocytes and 1+ blood. Her urine will be sent for culture and I am going to empirically start her on Vantin 200 mg b.i.d. for 10 days. We talked about the next course of action, which would either be a CT urogram to betterassess any abnormalities in the ureter for the above concerns, as well as persistent versus resolution of the obstruction or perinephric stranding, or an endoscopic evaluation, which is what she would prefer as we would also be able to treat the stones that remain. We talked about the procedure andreviewed the risks and benefits. She also has a history of interstitial cystitis and remembers the discomfort from the stent, but understands this will be necessary. We will schedule in the near future. I will keep you informed of her progress. documented in this encounter Plan of Treatment Not on file documented as of this encounter Procedures Procedure Name Priority Date/Time Associated Diagnosis Comments BACTERIAL CULTURE, URINE Routine 01/27/2018 14:38 EDT Kidney stone Hydronephrosis, unspecified hydronephrosis type POCT URINE DIPSTICK, CLINITEK Routine 01/27/2018 14:33 EDT Kidney stone documented in this encounter Results * BACTERIAL CULTURE, URINE (01/27/2018 14:38 EDT) Result Mixed organisms, culture interpretation difficult. Multiple bacterial morphotypes present. Suggest appropriate recollection with timely delivery to the laboratory, if clinically indicated. 01/28/2018 13:48 EDT [facility] Urine specimen (specimen) URINE / Unknown 01/27/2018 14:38 EDT 01/27/2018 15:32 EDT Rajesh Ibarra MD MICROBIOLOGY - GENERAL ORDERABLES [facility] [address] [place] [address] * (ABNORMAL) POCT URINE DIPSTICK, CLINITEK (01/27/2018 14:33 EDT) Color YELLOW Yellow 01/27/2018 14:36 [facility] Clarity, UA CLOUDY Clear 01/27/2018 14:36 [facility] Glucose Neg Neg 01/27/2018 14:36 [facility] Bilirubin Neg Neg 01/27/2018 14:36 [facility] Ketones Neg Neg 01/27/2018 14:36 [facility] Specific [place] 1.015 1.001 - 1.035 01/27/2018 14:36 [facility] Blood 1+(A) Neg 01/27/2018 14:36 [facility] pH 5.5 4.6 - 8.0 01/27/2018 14:36 [facility] Protein Neg Neg 01/27/2018 14:36 [facility] Urobilinogen 0.2 0.2 - 1.0 mg/dL 01/27/2018 14:36 [facility] Nitrite Pos(A) Neg 01/27/2018 14:36 [facility] Leuk Esterase 1+(A) Neg 01/27/2018 14:36 [facility] photographic laboratory technician ID [id number] 01/27/2018 14:36 [facility] Comment:Test performed at [facility] Urine specimen (specimen) URINE / Unknown 01/27/2018 14:33 EDT 01/27/2018 14:36 EDT Rajesh Ibarra MD POINT OF CARE TEST ORDERABLES [facility] [address] [place] [address] documented in this encounter Visit Diagnoses Diagnosis Kidney stone- Primary Calculus of kidney Hydronephrosis, unspecified hydronephrosis type Pyelonephritis Pyelonephritis, unspecified documented in this encounter Additional Health Concerns Infection Onset Date Last Indicated Resolved Time MDR-GNR Comment:IP Note: 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
--- OUTSIDE RECORDS SUMMARY | 2023-12-18 00:16 | XMS_ITS | Encounter Summary ---
Author Organization [facility] Address [address] [place] [address] Care Team Providers Care Senior Java Engineer Name Role Phone Sera Gay JATIN Primary Care Provider + Reason for Visit * Reason Onset Date Comments Other 03/17/2018 Pain Meds Encounter Details Date Type Department Care Team ([facility] st Contact Info) Description 03/17/2018 Telephone [facility] Urology - [facility] [address] [place] [address] Rajesh Ibarra MD [address] [place] [phone] Other (Pain Meds) Social History Tobacco Use Types Packs/Day Years [...] Dispensed Refills Start Date End Da te phenazopyridine (PYRIDIUM) 200 mg tablet Take 1 Tab by mouth 3 times daily as needed for Pain. 10 Tab 03/17/2018 04/13/2018 diclofenac (VOLTAREN) 50 mg EC tablet Take 1 Tab by mouth 2 times daily as needed for Pain. 10 Tab 03/17/2018 06/13/2020 documented in this encounter Miscellaneous Notes * Telephone Encounter - Amarilys Kolb RN - 03/17/2018 1158 EST Patient states that she is having pain from spasm and requesting refills on diclofenac and pyridium. DR Ibarra approved Rx sent. * Telephone Encounter - Oma Godfrey - 03/17/2018 1049 EST Pt is asking if she can have a refill on both her pain meds? The phenazopyridine & diclofenac. Please reach out to the Pt and advise. Thank you! documented in this encounter Plan of Treatment Not on file documented as of this encounter Visit Diagnoses Not on filedocumented in this encounter Discontinued Medications Medication Sig Discontinue Reason Start Date End Da te diclofenac (VOLTAREN) 50 mg EC tablet Take 1 Tab by mouth 2 times daily as needed for Pain. Reorder 03/12/2018 03/17/2018 phenazopyridine (PYRIDIUM) 200 mg tablet Take 1 Tab by mouth 3 times daily as needed for Pain. 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
--- OUTSIDE RECORDS SUMMARY | 2023-12-18 00:16 | XMS_ITS | Encounter Summary ---
Author Organization [facility] Address [address] [place] [address] Care Team Providers Care Machine Printer Hose Name Role Phone Victor Hugo Sera STEINER Primary Care Provider + Encounter Details Date Type Department Care Team (Latest Contact Info) Description 11/04/2016 17:30 EDT - 11/04/2016 23:59 EDT Hospital Encounter [address] [address] Unknown, Provider, Discharge Disposition: Home or Self Care Social History Tobacco Use Types Packs/Day Years Used Date Smoking Tobacco: Former Cigarettes 1 5 0 09/11/2003 - 09/10/2008 Alcohol Use Standard Drinks/Week Comments No 0 [...] visiting a doctor's office or shopping? No 04/09/2016 Cognitive Status Response Date of Assessm ent Because of a physical, menta l, or emotional condition, does this person have serious difficulty concentrating, remembering, or making decisions? No 04/09/2016 documented as of this encounter Medications at [...] tablet Take 1 Tablet by mouth daily. piroxicam (FELDENE) 10 mg capsule Take 10 Capsules by mouth daily. acetaminophen (TYLENOL) 325 mg tablet Take 2 Tabs by mouth every 4 hours as needed for Pain. 03/06/2016 06/14/2020 docusate sodium (COLACE) 100 mg capsule Take 1 Cap by mouth 2 times daily. 03/06/2016 03/10/2018 phenazopyridine (PYRIDIUM) 200 mg tablet Take 1 Tab by mouth 3 times daily as needed for Pain. 12 Tab 03/18/2016 03/12/2018 tamsulosin (FLOMAX) 0.4 mg capsule Take 1 Cap by mouth daily. 10 Cap 03/18/2016 03/10/2018 documented as of this encounter Discharge Disposition Disposition Code Departure Means Destination Home or Self Assisted documented in this encounter Plan of Treatment [...] documented as of this encounter Care Teams Machine Printer Hose Relationship Specialty Start Date End Date Sera Gay FNP [address] [place] [address] PCP - General 09/02/13 10/31/22 documented as of this encounter
--- OUTSIDE RECORDS SUMMARY | 2023-12-18 00:16 | XMS_ITS | Encounter Summary ---
Author Organization [facility] Address [address] [place] [address] Care Team Providers Care Soil Biology Teacher Name Role Phone Victor Hugo Sera STEINER Primary Care Provider + Reason for Visit * Reason Onset Date Comments Appointment Related 01/12/2018 patient Follow-up 01/13/2018 Appointment Related 01/19/2018 Encounter Details Date Type Department Care Team ([facility] st Contact Info) Description 01/12/2018 Telephone [facility] Urology - [address] [address] Rajesh Ibarra MD [address] [place] [phone] Appointment Related (patient ); Follow-up; Appointment Related Social History Tobacco Use Types [...] No 04/09/2016 documented as of this encounter Miscellaneous Notes * Telephone Encounter - Jerica Little - 01/19/2018 0956 EDT Patient has multiple bilateral renal calculi & mild to moderate right sided hydronephrosis Please call [place] to schedule appt as soon as possible Please look for fax * Telephone Encounter - Maren Perez - 01/14/2018 1044 EDT Patient states that [facility] ED should be sending info over if they haven't already to [phone]. She is calling to get an appointment scheduled after her recent [facility] ED visit. * Telephone Encounter - Maren Perez - 01/13/2018 0857 EDT Patient has called again to schedule. Please call. * Telephone Encounter - Malini Cardenas V. - 01/12/2018 1036 EDT Patient seen in [facility] last night for sever back pain, fever and vomiting. Told that she has a couple of kidney stones and possible blockage in her urethra. Needs to make an appointment here. documented in this encounter Plan of Treatment [...] documented as of this encounter Care Teams Soil Biology Teacher Relationship Specialty Start Date End Date Sera Gay FNP [address] [place] [address] PCP - General 09/02/13 10/31/22 documented as of this encounter
--- OUTSIDE RECORDS SUMMARY | 2023-12-18 00:16 | XMS_ITS | Encounter Summary ---
Author Organization [facility] Address [address] [place] [address] Care Team Providers Care Power Tool Repair Technician Name Role Phone Victor Hugo Sera STEINER Primary Care Provider + Encounter Details Date Type Department Care Team (Late st Contact Info) Description 11/04/2016 Results Only [facility] [phone] Unknown, Provider, Social History Tobacco Use Types Packs/Day Years [...] No 04/09/2016 documented as of this encounter Plan of Treatment Not on file documented as of this encounter Procedures Procedure Name Priority Date/Time Associated Diagnosis Comments SURGICAL PATHOLOGY Routine 11/04/2016 11 :06 EDT documented in this encounter Results * SURGICAL PATHOLOGY (11/04/2016 11:06 EDT) Pathology Report: SURGICAL PATHOLOGY REPORT Reports generated via electronic interface contain original data; however they are lacking the format of the original report. Caution should be taken when reading/interpreting unformatted reports. Name: ? BLESSING ORTIZ ? Accession #: ? [id number] ? : ? 1970 (Age: 46) ??F ? Collect Date: ? 11/04/2016 ? Location: ? [facility] ? Receive Date: ? 11/05/2016 ? Provider: JUAN BRITO MD Copy to: RAHAT RUIZ MD ? 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 Comment: This case has been presented and reviewed at the intradepartmental consultation conference. Document reviewed and electronically signed by: Joi Kapadia MD Report ??Date: 11/07/2016 16:15 By the signature above, the attending physician certifies that he/she has personally conducted a gross and/or microscopic examination of the described specimens and rendered or confirmed the above diagnosis. Specimen(s) Received: Retroperitoneal cyst Clinical History: Retroperitoneal cyst Gross Description: ? Received in formalin labelled with proper patient identification (initials M, L) and retroperitoneal cyst are three pieces of a brown-pennington cystic structure with attached yellow adipose measuring in aggregate 4.0 x 2.9 x 1.4 cm. The inner lining of the cystic structure is pennington-purple and wrinkled with no nodules or lesions identified. Advertising Rep sections are submitted in [address] 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
--- OUTSIDE RECORDS SUMMARY | 2023-12-18 00:16 | XMS_ITS | Encounter Summary ---
Author Organization [facility] Address [address] [place] [address] Care Team Providers Care Screw Machine Repairer Name Role Phone Sera Gay Tommy STEINER Primary Care Provider + Reason for Visit * Reason Onset Date Comments Discuss Surgery 03/11/2018 Encounter Details Date Type Department Care Team (Late st Contact Info) Description 03/11/2018 Telephone [facility] Urology - [facility] [address] [place] [address] Rajesh Ibarra MD [address] [place] [phone] Discuss Surgery Social History Tobacco Use Types [...] encounter Miscellaneous Notes * Telephone Encounter - Sheyla Gleason - 03/11/2018 1406 EST Confirmed procedure with patient. Patient was instructed to check in at 3rd floor registration at 7:40 am for a procedure at 9:40 am on 03/12/2018. Patient was instructed to have nothing to eat or liquids containing fats, including milk after midnight. The day of, patient can have water or other clear liquids until four hours before scheduled time of procedure. A livery car driver will be needed. documented in this encounter Plan of [...] documented as of this encounter Care Teams Screw Machine Repairer Relationship Specialty Start Date End Date Sera Gay FNP [address] [place] [address] PCP - General 09/02/13 10/31/22 documented as of this encounter
--- OUTSIDE RECORDS SUMMARY | 2023-12-18 00:16 | XMS_ITS | Encounter Summary ---
Author Organization [facility] Address [address] [place] [address] Care Team Providers Care Vice President Quality Assurance Name Role Phone Victor Hugo Sera STEINER Primary Care Provider + Reason for Visit * Reason Onset Date Comments Appointment Related 08/05/2019 Returning Call 08/05/2019 Returning Call 08/26/2019 Encounter Details Date Type Department Care Team (Late st Contact Info) Description 08/05/2019 Telephone [facility] Urology - [address] [phone] Rajesh Ibarra MD [address] [place] [phone] Appointment Related; Returning Call; Returning Call Social History Tobacco Use Types [...] encounter Miscellaneous Notes * Telephone Encounter - Ny Waggoner - 08/30/2019 1324 EDT LM for patient to Call back to schedule 6 mo fu with renal u/s with DR Ibarra * Telephone Encounter - Jerica Little - 08/26/2019 1653 EDT Returning call * Telephone Encounter - Ny Waggoner - 08/18/2019 1109 EDT LM for patient to call back to reschedule appt with Dr Ibarra. * Telephone Encounter - Jerica Little - 08/05/2019 1546 EDT Patient returning call to reschedule * Telephone Encounter - Ny Waggoner - 08/05/2019 1041 EDT LM for patient to call back to reschedule 6 mo fu renal u/s appt with Dr Ibarra from 08/12 documented in this encounter Plan of Treatment [...] documented as of this encounter Care Teams Vice President Quality Assurance Relationship Specialty Start Date End Date Sera Gay FNP [address] [place] [address] PCP - General 09/02/13 10/31/22 documented as of this encounter
--- OUTSIDE RECORDS SUMMARY | 2023-12-18 00:16 | XMS_ITS | Encounter Summary ---
Author Organization [facility] Address [address] [place] [address] Care Team Providers Care Artist Consultant Name Role Phone Victor Hugo Sera STEINER Primary Care Provider + Encounter Details Date Type Department Care Team (Latest Contact Info) Description 07/12/2016 14:29 EDT - 07/12/2016 23:59 EDT Hospital Encounter [address] [address] Unknown, Provider, Discharge Disposition: Home or Self [...] Code Departure Means Destination Home or Self Detention documented in this encounter Plan of Treatment [...] documented as of this encounter Care Teams Artist Consultant Relationship Specialty Start Date End Date Sera Gay FNP [address] [place] [address] PCP - General 09/02/13 10/31/22 documented as of this encounter
--- OUTSIDE RECORDS SUMMARY | 2023-12-18 00:16 | XMS_ITS | Encounter Summary ---
Author Organization [facility] Address [address] [place] [address] Care Team Providers Care One Piece Expansion Maker Hand Name Role Phone Victor Hugo Sera STEINER Primary Care Provider + Reason for Visit * Reason Onset Date Comments Discuss Surgery 02/02/2018 Follow-up 02/02/2018 Follow-up 02/03/2018 Encounter Details Date Type Department Care Team ([facility] st Contact Info) Description 02/02/2018 Telephone [facility] Urology - [address] [address] Rajesh Ibarra MD [address] [place] [phone] Discuss Surgery; Follow-up; Follow-up Social History Tobacco Use Types Packs/Day [...] * Telephone Encounter - Sheyla Gleason - 02/03/2018 1016 EDT Spoke with patient, will book for 03/12/2018 but will put on waitlist for sooner appointment. * Telephone Encounter - Alfonso Espinal - 02/03/2018 1003 EDT Lyn will call Blessing back as soon as she can. She is aware of the scheduling issue. Thank you * Telephone Encounter - Lilibeth Olivares - 02/02/2018 1448 EDT Pt is following up regarding the surgery that she cannot have on 02/05 - looking to connect with scheduling. Please call. * Telephone Encounter - Sheyla Gleason - 02/02/2018 1208 EDT Voicemail left from patient advising she would be unable to have surgery on 02/05/2018 as she has transportation issues and unable to find someone to watch her child. documented in this encounter Plan of Treatment [...] documented as of this encounter Care Teams One Piece Expansion Maker Hand Relationship Specialty Start Date End Date Sera Gay FNP [address] [place] [address] PCP - General 09/02/13 10/31/22 documented as of this encounter
--- OUTSIDE RECORDS SUMMARY | 2023-12-18 00:16 | XMS_ITS | Encounter Summary ---
Author Organization [facility] Address [address] [place] [address] Care Team Providers Care Salesperson Trailers And Motor [employer] Name Role Phone Sera Gay Tommy STEINER Primary Care Provider + Reason for Visit * Reason Onset Date Comments Discuss Surgery 04/10/2018 Encounter Details Date Type Department Care Team (Late st Contact Info) Description 04/10/2018 Telephone [facility] Urology - [facility] [address] [place] [address] Rajesh Ibarra MD [address] [place] [phone] Discuss Surgery Social History Tobacco Use [...] encounter Miscellaneous Notes * Telephone Encounter - Jazmin Piper - 04/10/2018 1348 EST Patient confirmed she received this information. * Telephone Encounter - Victorino Sheyla - 04/10/2018 1333 EST Voicemail left for patient to confirmed procedure. Patient was instructed to check in at 3rd floor registration at 1:15 pm for a procedure at 3:15 pm on 04/13/2018. Patient was instructed to have nothing to eat or liquids containing fats, including milk after midnight. The day of, patient can have water or other clear liquids until four hours before scheduled time of procedure. A sales driver will be needed. documented in this [...] documented as of this encounter Care Teams Salesperson Trailers And Motor [employer] Relationship Specialty Start Date End Date Sera Gay FNP [address] [place] [address] PCP - General 09/02/13 10/31/22 documented as of this encounter
--- OUTSIDE RECORDS SUMMARY | 2023-12-18 00:16 | XMS_ITS | Encounter Summary ---
Author Organization [facility] Address [address] [place] [address] Care Team Providers Care Press Tender Name Role Phone Sera Gay Tommy STEINER Primary Care Provider + Reason for Visit * Reason Comments Other Encounter Details Date Type Department Care Team (Late st Contact Info) Description 03/21/2019 Refill [facility] Urology - [facility] [address] [place], [place] [phone] Rajesh Ibarra MD [address] [place] [phone] Other Social History Tobacco Use Types Packs/Day Years [...] documented as of this encounter Care Teams Press Tender Relationship Specialty Start Date End Date Sera Gay FNP [address] [place] [address] PCP - General 09/02/13 10/31/22 documented as of this encounter
--- OUTSIDE RECORDS SUMMARY | 2023-12-18 00:16 | XMS_ITS | Encounter Summary ---
Author Organization [facility] Address [address] [place] [address] Care Team Providers Care Lens Generating Machine Tender Name Role Phone Victor HugoSera Tommy STEINER Primary Care Provider + Reason for Visit * Reason Comments Post-OP Follow Up Pt is experiencing u rinary frequency, burning Encounter Details Date Type Department Care Team ([facility] st Contact Info) Description 03/24/2018 15:45 EST Post-op Visit [facility] Urology - [facility] [address] [place] [address] Rajesh Ibarra MD [address] [place] [phone] Urinary urgency (Primary Dx); Nephrolithiasis Discharge Disposition: Auto Discharge Social History Tobacco [...] as of this encounter Discharge Diagnoses Diagnosis R39.15 Urgency of urination-R39.15[ICD-10-CM] N20.0 Calculus of kidney-N20.0[ICD-10-CM] documented in this encounter Ordered Prescriptions Prescription Sig Dispensed Refills Start Date End Da te diclofenac (VOLTAREN) 50 mg EC tablet Take 1 Tab by mouth 2 times daily. 10 Tab 03/24/2018 06/13/2020 oxyCODONE-acetaminophen (PERCOCET) 5-325 mg per tablet Take 1 Tab by mouth every 4 hours as needed for Pain. Daily Max: 6 Tabs 9 Tab 03/24/2018 04/13/2018 documented in this encounter Discharge Disposition Disposition Code Departure Means Destination Auto Discharge documented in this encounter Progress Notes * Rajesh Ibarra - 03/24/2018 1545 EST This is a 47-year-old female with a history of bilateral nephrolithiasis who has had multiple interventions over time. Her stone composition is predominantly calcium oxalate monohydrate with 30% calcium phosphate apatite. She has not followed up in terms of metabolic evaluations, but recently was found to have an obstructed appearing right kidney with associated infection. When I saw her, there was hydronephrosis and perinephric stranding tapering down to an area that looked like a possible stricture in the proximal ureter. There were stones up in the kidney as well. We took her for ureteroscopy and identified 1 narrowing region in the proximal ureter and 1 at the UPJ. These were incised with a laser. There was a perforation noted medially, likely from the wire manipulations. Once we got into her kidney, we observed the stones; however, stopped due to the ureter abnormality and placed a stent. She presents now for followup. She has been having quite significant discomfort with the stent, more so in the bladder and urethral region, particularly with voiding. She has been taking Pyridium with some improvement. She has notbeen taking any opioids, has finished her diclofenac. She denies fevers or chills. I spent time reviewing her imaging and explaining the interventions performed on the initial procedure. Our plan will be to bring her back after waiting for appropriate healing time to relook in her ureter ureteroscopically and treat the stones. We are going to try to move her procedure up due to her stent discomfort, but want to wait at least another 2 weeks to leave her stented for a month, andwe should be able to do this. I am going to send her urine for culture and I have given her some additional diclofenac and a small number of Percocet. documented in this encounter Plan of Treatment Scheduled Orders Name Type Priority Associated Diagnoses Orde r Schedule POCT URINE DIPSTICK, CLINITEK Point of Care Testing Routine Urinary urgency Ordered: 03/24/2018 documented as of this encounter Procedures Procedure Name Priority Date/Time Associated Diagnosis Comments BACTERIAL CULTURE, URINE Routine 03/24/2018 16:17 EST Urinary urgency Nephrolithiasis documented in this encounter Results * BACTERIAL CULTURE, URINE (03/24/2018 16:17 EST) Result Greater than 100,000 CFU/ml ESCHERICHIA COLI 03/26/2018 9:11 EST [facility] Urine specimen (specimen) URINE / Unknown 03/24/2018 16:17 EST 03/24/2018 17:26 EST Narrative Organism Antibiotic Method Susceptibility Greater than 100,000 cfu/ml escherichia coli Ampicillin SUSCEPTIBILITY (GLORIA) Susceptible Greater than 100,000 cfu/ml escherichia coli Gentamicin SUSCEPTIBILITY (GLORIA) Susceptible Greater than 100,000 cfu/ml escherichia coli Trimethoprim-Sulfameth oxazole SUSCEPTIBILITY (GLORIA) Susceptible Greater than 100,000 cfu/ml escherichia coli Nitrofurantoin SUSCEPTIBILITY (GLORIA) Susceptible Greater than 100,000 cfu/ml escherichia coli Tobramycin SUSCEPTIBILITY (GLORIA) Susceptible Greater than 100,000 cfu/ml escherichia coli Ceftriaxone SUSCEPTIBILITY (GLORIA) Susceptible Greater than 100,000 cfu/ml escherichia coli Ciprofloxacin SUSCEPTIBILITY (GLORIA) Susceptible Greater than 100,000 cfu/ml escherichia coli Piperacillin Tazobactam SUSCEPTIBILITY (GLORIA) Susceptible Greater than 100,000 cfu/ml escherichia coli Meropenem SUSCEPTIBILITY (GLORIA) Susceptible Greater than 100,000 cfu/ml escherichia coli Ertapenem SUSCEPTIBILITY (GLORIA) Susceptible Greater than 100,000 cfu/ml escherichia coli Cefazolin SUSCEPTIBILITY (GLORIA) Susceptible Greater than 100,000 cfu/ml escherichia coli Cefazolin SUSCEPTIBILITY (GLORIA) Cefazolin susceptibility results can be used to predict susceptibility results for the following oral cephalosporins when used for therapy of uncomplicated UTIs due to E.coli, K.pneumoniae, and P.mirabilis: cefaclor, cefdinir, cefpodoxime, cefprozil, cefuroxime , cephalexin, loracarbef. Cefdinir, cefpodoxime, and cefuroxime may be tested individually because some isolates may be susceptible to these agents while testing resistant to cefazolin. Please note that only cefpodoxime and cephalexin are on the [facility] inpatient formulary. 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
--- OUTSIDE RECORDS SUMMARY | 2023-12-18 00:16 | XMS_ITS | Encounter Summary ---
Author Organization [facility] Address [address] [place] [address] Care Team Providers Care Airport Planner Name Role Phone Sera Gay JATIN Primary Care Provider + Encounter Details Date Type Department Care Team (Latest Contact Info) Description 02/22/2019 10:44 EDT - 02/22/2019 23:59 EDT Hospital Encounter [facility] [address] [place] [address] Rajesh Ibarra MD [address] [place] [phone] Discharge Disposition: Auto Discharge Social History Tobacco [...] Discharge Diagnoses Diagnosis N20.0 Calculus of kidney-N20.0[ICD-10-CM] documented in this encounter Medications at Time [...] Max: 12 mg 10 Tab 04/13/2018 05/25/2020 sulfamethoxazole-trimeth oprim (BACTRIM DS) 800-160 mg per tablet Take 1 Tab by mouth 2 times daily for 7 days. 14 Tab 02/22/2019 03/01/2019 documented as of this encounter Discharge Disposition Disposition Code Departure Means Destination Auto Discharge Home documented in this encounter Plan of Treatment [...] documented as of this encounter Care Teams Airport Planner Relationship Specialty Start Date End Date Sera Gay FNP [address] [place] [address] PCP - General 09/02/13 10/31/22 documented as of this encounter
--- OUTSIDE RECORDS SUMMARY | 2023-12-18 00:16 | XMS_ITS | Encounter Summary ---
Author Organization [facility] Address [address] [place] [address] Care Team Providers Care Reel System Operator Name Role Phone Sera Gay CIRCUIT BOARD ASSEMBLER Primary Care Provider + Reason for Referral * Radiology Services (Routine) - Closed Specialty Diagnoses / Procedures Referred By Contac t Referred To Contact Nuclear Medicine Diagnoses Hydronephrosis, unspecified hydronephrosis type Procedures NM RENAL FLOW/FUNCTION W PHAR INTERVENTION Rajesh Ibarra MD [address] [place] [address] Referral ID Status Reason Start Date Expiration Date Visits Re quested Visits Authorized [id number] Closed 11/29/2019 1 1 Reason for Visit * Reason Comments Follow-up Fu [facility] Encounter Details Date Type Department Care Team (Latest Contact Info) Description 11/29/2019 11:45 EDT Telemedicine [facility] Urology - [address] [id number] Rajesh Ibarra MD [address] [place] [phone] Hydronephrosis, unspecified hydronephrosis type (Primary Dx) Social [...] as of this encounter Progress Notes * FredRajesh meraz - 11/29/2019 1145 EDT Blessing is a 49-year-old female with somewhat of a complex urologic history. She has a history of bilateral nephrolithiasis and also has had intervention on the right side for proximal ureteral stricture disease. Reviewing the records, she had an initial intervention back in February 2018. Endoscopic incision of the ureteral strictures was done at that time with stent placement. They were 2 tight strictures, and a stent was placed. She was taken back for a second look procedure to remove some stone in that kidney and ultimately has done well since that time. I spent time reviewing her initial imaging, and more recently, she developed acute onset right flank pain that was a severe enough pain to bringing her to the emergency department. She had a low grade fever and concern for infection and underwent repeat imaging, which showed a moderately hydronephrotic kidney with no stones or obstruction at all of the ureter itself. There was significant perinephric stranding. She did not transfer over for any urgent intervention as this was at an outside hospital, and fortunately, she has not hadany worsening of her symptoms. She has had no fevers, chills, nausea, vomiting that have returned. Her symptoms have been improving, although she still feels some discomfort. Certainly, I am concerned about either a recent stone episode or more so about a recurrent stricture disease. As she is currently improving from a symptom standpoint, I would like to, in the near future, have her obtain a nuclear medicine renal scan to assess for differential function and functional obstruction. Based on that, we may need to go ahead with a repeat endoscopic diagnostic type procedure. We will organize this in the near future. The concept of ?Telemedicine??? has been described [...] : Home The location of the provider: Clinic Exam Room The following staff and their role did [...] unchanged from comparison CTs. 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
--- OUTSIDE RECORDS SUMMARY | 2023-12-18 00:16 | XMS_ITS | Encounter Summary ---
Author Organization [facility] Address [address] [place] [address] Care Team Providers Care Camp Tender Name Role Phone Victor HugoSera Tommy STEINER Primary Care Provider + Reason for Visit * Reason Onset Date Comments Labs Only 04/09/2018 Pre-procedure 04/09/2018 Encounter Details Date Type Department Care Team (Late st Contact Info) Description 04/09/2018 Telephone [facility] Urology - [address] [address] Rajesh Ibarra MD [address] [place] [phone] Labs Only; Pre-procedure Social History Tobacco Use Types Packs/Day Years [...] Tab by mouth 2 times daily for 8 doses. Start 11-13 pm and continue until the morning of surgery, last tablet the morning of 12-17. 8 Tab 04/09/2018 04/13/2018 documented in this encounter Miscellaneous Notes * Telephone Encounter - Steffanie Mckeon RN - 04/09/[address] Ibarra the patient should take Bactrim DS BID through her procedure. The patient is aware. Taiwo from preop is aware. * Telephone Encounter - Steffanie Mckeon RN - 04/09/2018 1320 EST Message sent to Dr Ibarra via email for clarification on if he want preop antibiotic treatment. * Telephone Encounter - Selena Villaseñor - 04/09/2018 1218 EST Marielle from Pre-OP calling, needs to speak to Nurse about the Urine collected 03/24/18, Patient is scheduled for procedure 04/13/18 and she needs to speak to Nurse as soon as possible Please call back documented in this encounter Plan of Treatment [...] documented as of this encounter Care Teams Camp Tender Relationship Specialty Start Date End Date Sera Gay FNP [address] [place] [address] PCP - General 09/02/13 10/31/22 documented as of this encounter
--- OUTSIDE RECORDS SUMMARY | 2023-12-18 00:16 | XMS_ITS | Encounter Summary ---
Author Organization [facility] Address [address] [place] [address] Care Team Providers Care Armature Coil Winder Name Role Phone Victor HugoSera Tommy STEINER Primary Care Provider + Reason for Visit * Reason Comments Follow-up 2 MO FUR, RENAL ULS LITHOLINK Encounter Details Date Type Department Care Team (Latest Contact Info) Description 08/25/2018 11:15 EDT Office Visit [facility] Urology - [address] [address] Rajesh Ibarra MD [address] [place] [phone] Nephrolithiasis (Primary Dx); Ureteral stricture Social History Tobacco Use Types Packs/Day Years [...] No 01/27/2018 documented as of this encounter Patient Instructions * Patient Instructions* Noy Falcon - 08/25/2018 11:15 EDT RENAL ULTRASOUND * Allow 30 minutes for the test. * You should have nothing to eat 4 hours prior to this test. You may only have clear liquids. documented in this encounter Progress Notes * Rajesh Ibarra - 08/25/2018 1115 EDT This is a 48-year-old female with history of bilateral nephrolithiasis. She underwent ureteroscopy for right-sided nonobstructing stones and there were 2 narrowed strictured areas in the proximal ureter that underwent laser incision and stent placement. This was followed by a second look ureteroscopy to remove multiple stones and she presents now for followup after her stent has been removed. I first reviewed her postoperative ultrasound and the right kidney measures 12.0 cm with a few echogenic foci, but no obvious stones and most importantly, there is no hydronephrosis. The left kidney measures 12.4 cm, also with some tiny echogenic foci measuring 2.4 mm and smaller with no hydronephrosis. Her stone composition was reviewed and was 100% calcium oxalate monohydrate. On her 24-hour urine evaluation, which was her initial test, the first finding was of significant low volume of 1.2 liters. We explained the recommendations to try to put out 2.5 liters and ways of doing so and the importance, and she realizes that she does not hydrate well enough. Her calcium and oxalate levels were both normal. Her citrate was 551, so just in the normal range, but her pH was quite alkaline at 6.7. The other significant finding was of a high uric acid output in conjunction with high animal protein intake. She does eat a significant amount of animal protein. Her sodium was also elevated at 183. Going forward we talked about sodium restriction and limitation of animal protein intake while focusing on hydration. We talked about adding lemon and stony river juice to her fluids and I would not start her on any medications at this time. We could consider allopurinol if she has recurrent calcium oxalate stones in the setting of persistent hyperuricosuria. Plan will be to see her back in 6 months with an ultrasound and then we can make further followup recommendations at that time and probably have her do a new 24- hour urine evaluation as well. 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
--- OUTSIDE RECORDS SUMMARY | 2023-12-18 00:16 | XMS_ITS | Encounter Summary ---
Author Organization [facility] Address [address] [place] [address] Care Team Providers Care Immigration Lawyer Name Role Phone Sera Gay Primary Care Provider + Reason for Visit * (Routine) - Receiving Office to Obtain Authorization Specialty Diagnoses / Procedures Referred By Claudio t Referred To Contact Procedures CT OUTSIDE IMAGES BODY Unknown, Provider, Referral ID Status Reason Start Date Expiration Date Visits Requested Visits Authorized [id number] Receiving Office to Obtain Authorization 11/20/2019 1 1 Encounter Details Date Type Department Care Team (Latest Contact Info) Description 11/20/2019 8:35 EDT - 11/20/2019 23:59 EDT Hospital Encounter [facility] Radiology - [address] [place] [address] [place] [address] Discharge Disposition: Home or Self Care [...] Diagnosis Comments CT OUTSIDE IMAGES BODY Routine 11/20/2019 8:35 EDT documented in this encounter Results * CT OUTSIDE IMAGES BODY (11/20/2019 8:35 EDT) Narrative JOSE JUAN - 11/20/2019 8:35 EDT This is a non-reportable exam. 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
--- OUTSIDE RECORDS SUMMARY | 2023-12-18 00:16 | XMS_ITS | Encounter Summary ---
Author Organization [facility] Address [address] [place] [address] Care Team Providers Care Area Development Consultant Name Role Phone Victor Hugo Sera Tommy STEINER Primary Care Provider + Reason for Visit * Reason Onset Date Comments Discuss Surgery 01/30/2018 Follow-up 02/02/2018 Encounter Details Date Type Department Care Team (Late st Contact Info) Description 01/30/2018 Telephone [facility] Urology - [address] [address] Rajesh Ibarra MD [address] [place] [phone] Discuss Surgery; Follow-up Social History Tobacco Use Types Packs/Day [...] encounter Miscellaneous Notes * Telephone Encounter - Oma Godfrey - 02/02/2018 1103 EDT Pt is asking to reschedule this appt as she isn't free 02/05 * Telephone Encounter - Sheyla Gleason - 01/30/2018 1222 EDT Voicemail left for patient advising patient is scheduled for surgery on 02/05/2018 and will call the day before surgery to advise of all prep and arrival time. documented in this encounter Plan of Treatment [...] documented as of this encounter Care Teams Area Development Consultant Relationship Specialty Start Date End Date Sera Gay FNP [address] [place] [address] PCP - General 09/02/13 10/31/22 documented as of this encounter
--- OUTSIDE RECORDS SUMMARY | 2023-12-18 00:16 | XMS_ITS | Encounter Summary ---
Author Organization [facility] Address [address] [place] [address] Care Team Providers Care Disk Grinder Name Role Phone Sera Gay JATIN Primary Care Provider + Reason for Referral * Follow Up (48 Hrs (Urgent)) - Closed Specialty Diagnoses / Procedures Referred By Claudio quinteros Referred To Contact Urology Diagnoses Calculus of kidney Cuong Oneill MD [address] [place] [address] Rajesh Ibarra MD [address] [place] [phone] Referral ID Status Reason Start Date Expiration Date V isits Requested Visits Authorized [id number] Closed Specialty Services Required 04/13/2018 1 1 Question Answer Reason for Request: cysto stent removal 04/16 or 04/17 Encounter Details Date Type Department Care Team (Latest Contact Info) Description 04/13/2018 12:55 EST - 04/13/2018 20:[address] [facility] Perioperative Services- [facility] [address], [place] [id number] Rajesh Ibarra MD [address] [place] [address] Calculus of kidney (Primary Dx) Discharge Disposition: Home or Self [...] Sign Reading Time Taken Comments Blood Pressure 147/84 04/13/20182029 EST Pulse - - Temperature 36.7 ??C (98.1 ??F) 04/13/20182029 EST Respiratory Rate 13 04/13/20181999 EST Oxygen Saturation 92% 04/13/20182029 EST Inhaled Oxygen Concentration - - Weight 109.3 kg (241 lb) 03/30/2018 150 EST Height 165.1 cm (5' 5) 03/30/2018 150 EST Body Mass Index 40.1 03/30/2018 1501 EST documented in this encounter Functional Status [...] Discharge Diagnoses Diagnosis N20.0 Calculus of kidney-N20.0[ICD-10-CM] E66.01 Morbid (severe) obesity due to excess calories-E66.01[ICD-10-CM] Z68.41 Body mass index (BMI) 40.0-44.9, adult-Z68.41[ICD-10-CM] F41.9 Anxiety disorder, unspecified-F41.9[ICD-10-CM] F32.9 Major depressive disorder, single episode, unspecified-F32.9[ICD-10-CM] E78.00 Pure hypercholesterolemia, unspecified-E78.00[ICD-10-CM] I10 Essential (primary) hypertension-I10[ICD-10-CM] K21.9 Gastro-esophageal reflux disease without esophagitis-K21.9[ICD-10-CM] E11.9 Type 2 diabetes mellitus without complications-E11.9[ICD-10-CM] 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 This pain may be worse with activity or movement. Driving: No driving while taking narcotic pain medication Skin/Wound Care: Resume normal skin care. Bathing: No restrictions Pending Results: Stone analysis Symptoms to Call Your Doctor About: Burning with urination Chest pain Increased blood in urine Pain unrelieved by medication Shortness of breath Temperature greater than 101 degrees F Urinary retention Appointments: Please see Rajesh Ibarra MD in 1 week for stent removal in the office. Our office will call in the next few days to confirm an appointment time. If you do not hear from us in one week, please call [facility], . No future appointments. What can I expect from having a ureteral stent? Most individuals find that having a ureteral [...] you. It is important to keep taking sxvk-ntp-lcvvwfz Tylenol (acetaminophen) and ibupr ofen unless your doctor has recommended against taking these medications. Because of how the stent sits in [...] than a dime to quarter in size. You may also notice pain in your flank when you urinate. This is because the stent allows urine to travel back up to the kidney and can cause kidney irritation. This will resolve when the stent is removed. Irritation from the stent can persist even after the stent has been removed. This is because removal of the stent can cause temporary swelling of the tube (ureter) connecting the kidneys to the bladder. This usually resolves within 6 hours after the stent has been removed. If it continues please give us a call. How long will the stent remain in my body? The stent will remain in place for approximately 7-10 days. It will be removed in the office. The procedure to remove it does not require any anesthesia and takes about 1 minute. A flexible camera scope is placed into the bladder allowing the surgeon to see the stent and remove it. This is generally extremely well tolerated. What are things to look out for? Please call us if you experience any of the following: ? ? Urinary retention (no urination for >6 hours) ??? Fever greater than 101.5 F ??? Passing clots larger than a dime, or dark purple urine that resembles grape juice ??? Pain that is not controlled by medications provided ??? Significant pain not controlled by medications lasting more than 6 hours after stent removal * Medications* Candido Abraham RN - 04/13/2018 19:30 EST The maximum daily dose of acetaminophen was discussed with the patient. She was encouraged not to exceed 4,000 mg of acetaminophen during a 24 hour period and was asked to keep in mind that acetaminophen can also be found in many jjct-jwx-ornvmvw cold medications as well as narcotics that may be given for pain. The patient expresses understanding of these issues and questions were answered. The patient was advised that NSAID-type medications have two very important potential side effects:gastrointestinal irritation including hemorrhage and renal injuries. She was asked to take the medication with food and to stop if she experiences any GI upset. I askedher to call for vomiting, abdominal pain or black/bloody stools. The patient expresses understanding of these issues and questions were answered.In 3 days, remove the scopolamine patch behind your ear. Be careful not to touch your eyes after removal. Wash your hands and the area where the patch wasremoved thoroughly. documented in this encounter Medications at Time [...] Tab by mouth 2 times daily for 4 days. Start 11-13 pm and continue until the morning of surgery, last tablet the morning of 12-17. 8 Tab 04/13/2018 04/17/2018 tamsulosin (FLOMAX) 0.4 mg capsule Take 1 Cap by mouth daily for 10 days. 10 Cap 04/13/2018 04/23/2018 documented as of this encounter Ordered Prescriptions Prescription Sig Dispensed Refills Start Date End Da te phenazopyridine (PYRIDIUM) 200 mg tablet Take 1 Tab by mouth 3 times daily as needed for Pain. 10 Tab 04/13/2018 tamsulosin (FLOMAX) 0.4 mg capsule Take 1 Cap by mouth daily for 10 days. 10 Cap 04/13/2018 04/23/2018 sulfamethoxazole-trimetho prim (BACTRIM DS) 800-160 mg per tablet Take 1 Tab by mouth 2 times daily for 4 days. Start 11-13 pm and continue until the morning of surgery, last tablet the morning of 12-17. 8 Tab 04/13/2018 04/17/2018 HYDROmorphone (DILAUDID) 2 mg tablet Take 1 Tab by mouth every 4 hours as needed for Pain. Daily Max: 12 mg 10 Tab 04/13/2018 05/25/2020 documented in this encounter Discharge Disposition Disposition Code Departure Means Destination Home or Self Care documented in this encounter Progress Notes * Matilda Ramirez RN - 03/30/2018 0404 EST Blessing Ortiz has been instructed as follows regarding medication administration for the day of thescheduled procedure. Date of Surgery: 04/13/18 Instructions for Taking Medications Day of Surgery Medication Sig Last Dose Hold DOS Take DOS acetaminophen (TYLENOL) 325 mg tablet Take 2 Tabs by mouth every 4 hours as needed for Pain. Yes amitriptyline (ELAVIL) 25 mg tablet Take 25 mg by mouth daily. Yes clidinium-chlordiazepoxide (LIBRAX, WITH CLIDINIUM,) 5-2.5 mg per capsule Take 1 Cap by mouth 3 times daily. yes diclofenac (VOLTAREN) 50 mg EC tablet Take 1 Tab by mouth 2 times daily. 04/09 no diclofenac (VOLTAREN) 50 mg EC tablet Take 1 Tab by mouth 2 times daily as needed for Pain. 04/09 no gabapentin (NEURONTIN) 400 mg capsule Take 400 mg by mouth 3 times daily. Yes METOPROLOL SUCCINATE ORAL Take 25 mg by mouth 2 times daily. Yes oxyCODONE-acetaminophen (PERCOCET) 5-325 mg per tablet Take 1 Tab by mouth every 4 hours as needed for Pain. Daily Max: 6 Tabs Yes pantoprazole (PROTONIX) 40 mg tablet Take 40 mg by mouth daily. Yes phenazopyridine (PYRIDIUM) 200 mg tablet Take 1 Tab by mouth 3 times daily as needed for Pain. Yes piroxicam (FELDENE) 10 mg capsule Take 10 mg by mouth daily. Yes tamsulosin (FLOMAX) 0.4 mg capsule Take 1 Cap by mouth daily for 30 days. Yes * Melany Yee RN - 03/26/2018 0802 EST Left voice mail message for anesthesia prescreen. documented in this encounter H&P Notes * Cuong Oneill MD - 04/13/2018 8677 EST The preoperative history and physical which was performed within 30 days of this procedure has been reviewed and the clinically appropriate elements of the physical examination have been repeated. There are no changes to the documented history and physical or if so such changes are documented below Cuong Oneill MD 04/13/2018 15:27 Source Note - COLD WORK OPERATOR, SCAN 2 - 04/02/2018 15:14 EST documented in this encounter OR Notes * OR Surgeon - Cuong Oneill MD - 04/13/2018 0000 EST OPERATIVE REPORT SERVICE DATE: 04/13/2018 SURGEON: Rajesh Ibarra MD LINOTYPE MECHANIC: Cuong Oneill MD PREOPERATIVE DIAGNOSIS: Right nephrolithiasis. POSTOPERATIVE DIAGNOSIS: Right nephrolithiasis. PROCEDURE: Cystoscopy, right ureteroscopy, stone basketing, right ureteral stent exchange. ANESTHESIA: General. INDICATIONS: Ms Ortiz is a pleasant 47-year-old female with history of nephrolithiasis who has hadmultiple interventions over time. She was recently found to have an obstructed-appearing right kidney with associated infection with concern for a possible stricture in the right proximal ureter. There were stones in the kidney as well. She was taken for ureteroscopy and there were 2 areas of narrowed ureter in the proximal ureter and at the UPJ. These were incised with the laser. A stent was placed at that time, but due to question of perforation the stones were not basketed. She now presents today for definitive stone management. FINDINGS AND NARRATIVE: After obtaining informed consent, patient was brought to the operating theater and placed supine on the bed. Step 1 of the safety checklist was completed and perioperative antibiotics had been administered. Venodynes were utilized. She underwent general anesthesia and was placed in dorsal lithotomy position. She was prepped and draped in usual sterile fashion with Betadineprep. Step 2 of the safety checklist was completed and a 22-Saudi Arabian rigid cystoscope with 30-degree lens was inserted atraumatically into the bladder via the urethra. Survey cystoscopy demonstrated the right ureteral stent emanating from the right ureteral orifice. There were no other mucosal lesions, tumors or stones. The right ureteral stent was then grasped with a flexible grasper and brought out to the level of the meatus. A 0.038 Sensor wire was passed up through the stent to the level of the renal pelvis and the stent was backed off the wire. A semirigid ureteroscope was then introduced atraumatically into the bladder and used to cannulate the ureter. This was able to be passed up to the level of the proximal ureter, but below the questionable ureteral strictures. A 0.038 Bentson wire was passed up through the scope and the scope was backed off the wire, leaving the [address] A 12/14 ureteral access sheath was then passed up over the Sensor wire to the level of the proximal ureter. This appeared to pass through the areas of stricture without difficulty. The access sheath was then positioned just below the strictures for direct visualization. The 12-Saudi Arabian obturator and the wire were removed, leaving the access sheath in place. A flexible digital ureteroscope was then passed atraumatically through the access sheath and through the strictures. There did not appear to be significant obstruction. Survey pyeloscopy demonstrated multiple small stones in the lower polecalyces, as well as the upper pole calices. A 0-tip nitinol basket was introduced via the working port of the scope and the stones were basketed individually. A specimen was sent for routine kidney stone analysis. Following basketing of all the stones, there did not appear to be any residual nephrolithiasis within the kidney. There were no mucosal lesions. The scope was gently backed down and theareas of stricture were identified. The scope was able to be passed easily through these, although t here did appear to be some mild mucosal irritation. The scope and the access sheath were gently retracted, allowing direct visualization of the mid and distal ureter. There did not appear to be any damage or perforation. These were discontinued in their entirety and the 6-Saudi Arabian x 24 cm JJ ureteralstent was then passed up over the wire to the level of renal pelvis under fluoroscopic guidance. The wire was removed, leaving the stent in good position with a good curl in the bladder and a good curl in the renal pelvis on followup imaging. The bladder was drained at the end of the case and all instruments were removed. There were no complications. ESTIMATED BLOOD LOSS: Minimal. URINE OUTPUT: Not measured. FLUIDS: Per anesthesia. SPECIMENS: Right stones. CULTURES: None. FOREIGN MATERIAL: Right 7 x 24 cm stent. COMPLICATIONS: None. DISPOSITION: The patient was brought to PACU in good condition. She will follow up in approximately1 week to 10 days for stent removal in the office, followed by evaluation of possible hydronephrosis with ultrasound at [address] Ibarra was present for the entirety of the procedure. Unless otherwise noted, there were no complications, no blood loss, no cultures obtained, no specimens removed, and no drains retained. Rajesh Ibarra MD 09 31 AM / Cuong Oneill MD mn Confirmation: [id number] Dictation ID: [id number] documented in this encounter Miscellaneous Notes * Anesthesia Post-Eval - Myron Avalos, AA - 04/13/2018 1820 EST Anesthesia Post op Note Blessing Ortiz [id number] Anesthesia received: General; Vital Signs: Temp: 35.9 ??C (96.6 ??F), Heart Rate: 93 BPM, BP: 136/84, Resp: 16, SpO2: 96 % Vital signs Stable: Yes Consciousness: Recovered to baseline Patient's participation in evaluation:Able to participate Temperature Status: Normothermic Respiratory Status: Airway patent Supplemental O2: Room air Oxygen Saturation: Within patient's normal range Cardiovascular Status: Within patient's normal range Post-op Hydration: Adequate Nausea / Vomiting: None Pain Control: Adequate Current Pain Score: Numeric Pain Level (Scale 1-10): 6 Post-op Assessment: Tolerated procedure well Disposition: Home Complications: No apparent anesthetic complications LEMUEL Bender 04/13/2018 18:20 * Brief Op Note - Cuong Oneill MD - 04/13/2018 1631 EST BRIEF OP NOTE Surgeon: Rajesh Ibarra MD Parking Supervisor: Cuong Oneill MD Pre-op diagnosis: right nephrolithiasis Post-op diagnosis: same Procedure: cysto, right ureteroscopy, right stent exchange Anesth: General Findings: Multiple small stones basketed; 2 areas of stricture ope n EBL: min IVF: per anes UOP: Urine not measured during case Specimen: Right stones Cultures: none Foreign Material Retained: Right 7x24 stent Complications: none Dispo: PACU in Good condition. Cuong Oneill MD 04/13/2018 16:31 documented in this encounter Plan of Treatment Scheduled Referrals Name Type Priority Associated Diagnoses Orde r Schedule AMB CONS/FOLLOW UP UROLOGY Outpatient Referral Routine Calculus of kidney Ordered: 04/13/2018 documented as of this encounter Procedures Procedure Name Priority Date/Time Associated Diagnosis Comments IMPLANT RECORD - SCANNED 04/24/2018 21:20 EST IMPLANT RECORD - SCANNED 04/16/2018 9:37 EST ECG REPORT - SCANNED 04/16/2018 9:37 EST RETROGRADE UROGRAM Routine 04/13/2018 16 :34 EST KIDNEY STONE ANALYSIS STAT 04/13/2018 16:10 EST GLUCOSE, GLUCOMETER Routine 04/13/2018 1 3:46 EST documented in this encounter Results * IMPLANT RECORD - SCANNED (04/24/2018 21:20 EST) 04/24/2018 21:2 0 EST Scan 2 Senior Radiation Protection Technician PROCEDURE/MINOR ELSA GICAL ORDERABLES * IMPLANT RECORD - SCANNED (04/16/2018 9:37 EST) 04/16/2018 9:37 EST Scan 2 Senior Radiation Protection Technician PROCEDURE/MINOR ELSA GICAL ORDERABLES * ECG REPORT - SCANNED (04/16/2018 9:37 EST) 04/16/2018 9:37 EST Scan 2 Senior Radiation Protection Technician PROCEDURE/MINOR ELSA GICAL ORDERABLES * RETROGRADE UROGRAM (04/13/2018 16:34 EST) Anatomical Region Laterality Modality Other 04/13/2018 16:3 4 EST Narrative 04/13/2018 16:34 EST Non Reportable Exam Procedure Note ENTRY LEVEL FINANCIAL ANALYST, IMAGING - 04/13/2018 Non Reportable Exam Rajesh Ibarra MD IMG FLUOROSCO PY ORDERABLES * KIDNEY STONE ANALYSIS (04/13/2018 16:10 EST) Source RIGHT KIDNEY 04/13/2018 20:00 EST [facility] 1st Constituent 100% Calcium oxalate monohydrate 04/21/2018 7:29 EST [facility] Comment: (Note) . ADDITIONAL INFORMATION This test was developed and its performance characteristics determined by [facility] in a manner consistent with CLIA requirements. This test has not been cleared or approved by the U.S. Food and Drug Administration. Performed by: [facility]: [address], [place] [address] Specimen of unknown material (specimen) TOPOGRAPHY UNKNOWN / Unknown 04/13/2018 16:10 EST 04/13/2018 20:00 EST Rajesh Ibarra MD GEN LAB UNIT COLLECT ORDERABLES Performing Organization Address [facility] Co de Phone Number [facility] [address] [place] [address] * GLUCOSE, GLUCOMETER (04/13/2018 13:46 EST) Glucose, Fingerstick 93 70 - 100 mg/dl 04/13/2018 13:49 EST [facility] [employer] [place] [id number] 04/13/2018 13:49 EST [facility] Comment:Test Performed by [facility] BLOOD SPECIMEN / Unknown 04/13/2018 13:46 EST 04/13/2018 13:49 EST Rajesh Ibarra MD CHEMISTRY & B LOOD GAS ORDERABLES Performing Organization Address [facility] de Phone Number [facility] [address] [place] [address] documented in this encounter Visit Diagnoses Diagnosis Calculus of kidney- Primary documented in this encounter Administered Medications Inactive Administered Medications - up to 3 most recent administrations Medication Order MAR Action Action Date Dose Rate Site acetaminophen (TYLENOL) tablet 1,000 mg 1,000 mg, oral, PRN, 1 dose, Starting on 04/13/18 at 1637, Until Fri04/13/18 at 1727, Fever, Routine, Recovery (only) Given 04/13/2018 17:27 EST 1,000 mg atropine 0.1 mg/mL syringe 0.5 mg 0.5 mg, intravenous, PRN, Starting on 04/13/18 at 1637, Until Fri04/13/18 at 2312, Symptomatic HR < 50, Routine, Recovery (only) cefTRIAXone (ROCEPHIN) 1,000 mg in sodium chloride (NS MBP) 50 mL IVPB 1,000 mg, intravenous, Administer over 30 Minutes, DAILY, 1 dose, First dose on Fri04/13/18 at 1530, Routine Given 04/13/2018 15:22 EST 1,000 mg dextrose 50 % solution 12.5 g 12.5 g, intravenous, PRN, Starting on Fri04/13/18 at 1341, Until Fri04/13/18 at 2312, Low Blood Sugar, Routine, Pre-Op DOS Rx Approved diphenhydrAMINE (BENADRYL) injection 12.5 mg 12.5 mg, intravenous, PRN, 1 dose, Starting on Fri04/13/18 at 1637, Until Fri04/13/18 at 2312, nausea, Routine, Recovery (only) glucagon injection 1 mg 1 mg, intramuscular, PRN, Starting on Fri04/13/18 at 1341, Until Fri04/13/18 at 2312, Low Blood Sugar, Routine, Pre-Op DOS Rx Approved HYDROmorphone (DILAUDID) tablet 2 mg 2 mg, oral, PACU PRN, 1 dose, Starting on Fri04/13/18 at 1637, Until Fri04/13/18 at 2024, Pain, Routine, Recovery (only) Given 04/13/2018 20:24 EST 2 mg HYDROmorphone injection (DILAUDID) 0.5 mg/1 mL syringe 0.25-0.5 mg 0.25-0.5 mg, intravenous, EVERY 10 MINUTES PRN, Starting on Fri04/13/18 at 1637, Until Fri04/13/18 at 2312, Pain, Routine, Recovery (only) Given 04/13/2018 17:27 EST 0.25 mg lactated ringers (LR) infusion at 25 mL/hr, intravenous, CONTINUOUS, Starting on Fri04/13/18 at 1415, Until Fri04/13/18 at 2312, Routine, Pre Op Day of Surgery New Bag 04/13/2018 14:17 EST 25 mL/hr lactated ringers (LR) infusion at 75 mL/hr, intravenous, CONTINUOUS, Starting on Fri04/13/18 at 1700, Until Fri04/13/18 at 2312, Routine, Recovery (only) New Bag 04/13/2018 19:15 EST 75 mL/hr naloxone (NARCAN) injection 0.2 mg 0.2 mg, intravenous, PRN, Starting on Fri04/13/18 at 1637, Until Fri04/13/18 at 2312, Opioid Reversal, Routine, Recovery (only) ondansetron (PF) (ZOFRAN) injection 4 mg 4 mg, intravenous, PRN, 1 dose, Starting on Fri04/13/18 at 1637, Until Fri04/13/18 at 1857, Nausea, Vomiting, Routine, Recovery (only) Given 04/13/2018 18:57 EST 4 mg phenazopyridine (PYRIDIUM) tablet 200 mg 200 mg, oral, NOW X1, 1 dose, On Fri04/13/18 at 1700, Routine Given 04/13/2018 19:44 EST 200 mg tamsulosin (FLOMAX) capsule 0.4 mg 0.4 mg, oral, NOW X1, 1 dose, On Fri04/13/18 at 1700, STAT Given 04/13/2018 19:44 EST 0.4 mg documented in this encounter Discontinued Medications Medication Sig Discontinue Reason Start Date End Da te phenazopyridine (PYRIDIUM) 200 mg tablet Take 1 Tab by mouth 3 times daily as needed for Pain. Reorder 03/17/2018 04/13/2018 sulfamethoxazole-trimet hoprim (BACTRIM DS) 800-160 mg per tablet Take 1 Tab by mouth 2 times daily for 8 doses. Start 11-13 pm and continue until the morning of surgery, last tablet the morning of 04-13. Reorder 04/09/2018 04/13/2018 oxyCODONE-acetaminophen (PERCOCET) 5-325 mg per tablet Take 1 Tab by mouth every 4 hours as needed for Pain. Daily Max: 6 Tabs 03/24/2018 04/13/2018 documented as of this encounter Active and Recently Administered Medications Times are shown in EST. Scheduled Medication Order 04/11/2018 04/12/2018 04/13/2018 cefTRIAXone (ROCEPHIN) 1,000 mg in sodium chloride (NS MBP) 50 mL IVPB (COMPLETED) 1,000 mg, intravenous, Administer over 30 Minutes, DAILY, 1 dose, First dose on Fri04/13/18 at 1530, Routine 1522 (Given - Provid er: Blessing Santana RN) phenazopyridine (PYRIDIUM) tablet 200 mg (COMPLETED) 200 mg, oral, NOW X1, 1 dose, On Fri04/13/18 at 1700, Routine 1944 (Given - Provid er: Candido Abraham RN) tamsulosin (FLOMAX) capsule 0.4 mg (COMPLETED) 0.4 mg, oral, NOW X1, 1 dose, On Fri04/13/18 at 1700, STAT 1944 (Given - Provid er: Candido Arbaham RN) Continuous Medication Order 04/11/2018 04/12/2018 04/13/2018 lactated ringers (LR) infusion at 25 mL/hr, intravenous, CONTINUOUS, Starting on Fri04/13/18 at 1415, Until Fri04/13/18 at 2312, Routine, Pre Op Day of Surgery 1417 (New Bag - Prov ider: Blessing Santana RN)1637 (Completed - Provider: Candido Abraham RN - Comment: 600 cc in the OR) lactated ringers (LR) infusion at 75 mL/hr, intravenous, CONTINUOUS, Starting on Fri04/13/18 at 1700, Until Fri04/13/18 at 2312, Routine, Recovery (only) 1637 (Continued Infu renan - Provider: Candido Abraham RN - Comment: pacu)1915 (New Bag - Provider: Candido Abraham RN)2000 (IV Stopped - Provider: Candido Abraham RN - Comment: OOB to the BR) PRN Medication Order 04/11/2018 04/12/2018 04/13/2018 acetaminophen (TYLENOL) tablet 1,000 mg (COMPLETED)(Linked Group 1) 1,000 mg, oral, PRN, 1 dose, Starting on Fri04/13/18 at 1637, Until Fri04/13/18 at 1727, Fever, Routine, Recovery (only) 1727 (Given - Provid er: Candido Abraham RN - Comment: r stent placement in her ureter) atropine 0.1 mg/mL syringe 0.5 mg 0.5 mg, intravenous, PRN, Starting on Fri04/13/18 at 1637, Until Fri04/13/18 at 2312, Symptomatic HR < 50, Routine, Recovery (only) dextrose 50 % solution 12.5 g 12.5 g, intravenous, PRN, Starting on Fri04/13/18 at 1341, Until Fri04/13/18 at 2312, Low Blood Sugar, Routine, Pre-Op DOS Rx Approved diphenhydrAMINE (BENADRYL) injection 12.5 mg 12.5 mg, intravenous, PRN, 1 dose, Starting on Fri04/13/18 at 1637, Until Fri04/13/18 at 2312, nausea, Routine, Recovery (only) glucagon injection 1 mg 1 mg, intramuscular, PRN, Starting on Fri04/13/18 at 1341, Until Fri04/13/18 at 2312, Low Blood Sugar, Routine, Pre-Op DOS Rx Approved HYDROmorphone (DILAUDID) tablet 2 mg (COMPLETED) 2 mg, oral, PACU PRN, 1 dose, Starting on Fri04/13/18 at 1637, Until Fri04/13/18 at 2024, Pain, Routine, Recovery (only) 2023 (Given - Provid er: Candido Abraham RN) HYDROmorphone injection (DILAUDID) 0.5 mg/1 mL syringe 0.25-0.5 mg 0.25-0.5 mg, intravenous, EVERY 10 MINUTES PRN, Starting on Fri04/13/18 at 1637, Until Fri04/13/18 at 2312, Pain, Routine, Recovery (only) 1727 (Given - Provid er: Candido Abraham RN) naloxone (NARCAN) injection 0.2 mg 0.2 mg, intravenous, PRN, Starting on Fri04/13/18 at 1637, Until Fri04/13/18 at 2312, Opioid Reversal, Routine, Recovery (only) ondansetron (PF) (ZOFRAN) injection 4 mg (COMPLETED) 4 mg, intravenous, PRN, 1 dose, Starting on Fri04/13/18 at 1637, Until Fri04/13/18 at 1857, Nausea, Vomiting, Routine, Recovery (only) 1857 (Given - Provid er: Candido Abraham RN) Linked Groups Order Group 1: acetaminophen (TYLENOL) solution unit dose cup 995 mg (COMPLETED) 995 mg (rounded from 1,000 mg), oral, PRN, 1 dose, Starting on Fri04/13/18 at 1637, Until Fri04/13/18 at 1727, Fever, Routine, Recovery (only) Or acetaminophen (TYLENOL) tablet 1,000 mg (COMPLETED)Jump to med 1,000 mg, oral, PRN, 1 dose, Starting on Fri04/13/18 at 1637, Until Fri04/13/18 at 1727, Fever, Routine, Recovery (only) documented in this encounter Orders Medications Ordered That John ht Not Have Been Administered Count Last Ordered Date First Ordered Date acetaminophen (TYLENOL) solu tion unit dose cup 995 mg 1 04/13/2018 atropine 0.1 mg/mL syringe 0.5 mg 1 018 dextrose 50 % solution 12.5 g 1 04/13/2018 diphenhydrAMINE (BENADRYL) i njection 12.5 mg 1 04/13/2018 glucagon injection 1 mg 1 04/13/2018 naloxone (NARCAN) injection 0.2 mg 1 2017 Transfer Count Last Ordered Date First Orde red Date NOTIFY PPS PACU PATIENT DISCHARGE 1 018 NOTIFY PPS PATIENT ARRIVAL IN PACU 1 2017 Discharge Count Last Ordered Date First Orde red Date DISCHARGE PATIENT 1 04/13/2018 documented in this encounter Additional Health Concerns Infection Onset Date Last Indicated Resolved Time 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
--- OUTSIDE RECORDS SUMMARY | 2023-12-18 00:16 | XMS_ITS | Encounter Summary ---
Author Organization [facility] Address [address] [place] [address] Care Team Providers Care Registered Sales Assistant Name Role Phone Sera Gay JATIN Primary Care Provider + Reason for Referral * Radiology Services (STAT) - Specialty Report Received Specialty Diagnoses / Procedures [facility] Referred To Contact Diagnoses Nephrolithiasis Procedures CT RENAL COLIC WO CONTRAST Clare Ibarra MD [address] [place] [address] Referral ID Status Reason Start Date Expiration Date V isits Requested Visits Authorized [id number] Specialty Report Received 02/22/2019 1 1 Reason for Visit * Reason Comments Follow-up APRIL Encounter Details Date Type Department Care Team (Latest Contact Info) Description 02/22/2019 9:45 EDT Office Visit [facility] Urology - [address] [address] Clare Ibarra MD [address] [place] [address] Nephrolithiasis (Primary Dx) Discharge Disposition: Auto Discharge Social History Tobacco [...] Dispensed Refills Start Date End Da te sulfamethoxazole-trimethop rim (BACTRIM DS) 800-160 mg per tablet Take 1 Tab by mouth 2 times daily for 7 days. 14 Tab 02/22/2019 03/01/2019 documented in this encounter Discharge Disposition Disposition Code Departure Means Destination Auto Discharge documented in this encounter Progress Notes * Clare Ibarra - 02/22/2019 0945 EDT This is a 48-year-old female with a history of bilateral nephrolithiasis. She has had a right-sidedintervention, which involved treatment of her stones after needing to open to narrowed areas on theproximal ureter. This was laser incision, stent placement and the stones were removed a second lookprocedure. Unfortunately, her followup imaging showed no evidence of hydronephrosis and resolution of the stones on that side. She does have some known small nonobstructing stones in the left kidney.Her stone composition was 100% calcium oxalate monohydrate. We have done prior metabolic evaluations which showed an alkaline urine pH and a high uric acid output as well as most importantly a very low volume of 1.2 L. Today, she presents for followup for imaging and does report she is having some dull constant discomfort in the left flank region. She denies fevers, chills, nausea, vomiting, dysuria or gross hematuria. I checked her urinalysis today, which has 1+ blood, 1+ leukocytes and is positive for nitrites.Due to her history of stones and the likely infection, I am going to start her on an antibiotic empirically and send her urine for culture and I would also like to update her imaging with a CT scan. We did get an ultrasound today for which the right kidney measures 12.0 cm and there are a couple of echogenic foci, but no obvious stones and no hydronephrosis. The left kidney measures 12.4 cm and in the mid pole there is a 4.3 mm nonobstructing stone and then a 2.6 mm lower pole stone without obvious hydronephrosis. Despite the lack of hydronephrosis, I do want to make sure that she does not have any obstructing stones and get a better idea of her overall stone burden with a CT scan, which we will order today. We will discuss the results of that and treat her probable infection and follow up on the culture as well. * Clare Ibarra - 02/22/2019 0945 EDT Blessing was able to obtain a CT today and she presents for review. She has 2 nonobstructing lower polestones, both less than 5 mm with nothing in the ureter and no obstruction. Plan will be to treat her probable bladder infection based on her UA and will call if there are anychanges per the Bactrim that I prescribed. We will plan on seeing her back in 6 months to follow these nonobstructing stones. documented in this encounter Miscellaneous Notes * Addendum Note - Clare Ibarra - 02/22/2019 0945 EDTAddended by: CLARE IBARRA on: 02/22/2019 10:04 Modules accepted: Orders documented in this encounter Plan of Treatment Not on file documented as of this encounter Procedures Procedure Name Priority Date/Time Associated Diagnosis Comments CT RENAL COLIC WO CONTRAST Routine 02/22/2019 11:03 EDT Nephrolithiasis BACTERIAL CULTURE, URINE Routine 02/22/2019 9:59 EDT Nephrolithiasis POCT URINE DIPSTICK, CLINITEK Routine 02/22/2019 9:45 EDT Nephrolithiasis documented in this encounter Results * CT RENAL COLIC WO CONTRAST (02/22/2019 11:03 EDT) Anatomical Region Laterality Modality Other 02/22/2019 11:0 3 EDT 02/22/2019 13:39 EDT Narrative 02/22/2019 13:[address] RENAL COLIC ??02/22/2019 11:03 AM Signs and Symptoms/Comments: ?? N20.0-Calculus of [id number]; Kidney stone, known, follow up Technique: Axial CT images obtained from abdomen immediately superior to level of kidneys through the pelvis without administration of contrast of any kind. Sagittal and coronal reformats generated. Comparison: Multiple prior CTs most recent performed outside facility January 11, 2018. Findings: Kidneys and ureters: No contour deforming lesions are identified. Nonobstructing stones are seen on the left, similar to that of the previous examination. Previously identified right-sided nephrolithiasis is no longer present. The previously identified mild right-sided hydronephrosis has resolved. The right kidney demonstrates multifocal regions of scarring. Previously identified perinephric stranding around the right kidney has resolved. No ureteral calculi. Bladder: The urinary bladder is grossly unremarkable. Uterus, adnexa: A right adnexal cystic lesion appears grossly unchanged from comparison studies most recent January 11, 2018. The uterus is absent. Included lung bases: Included lung bases are clear. Unenhanced liver and spleen, as far as included: No contour deforming lesions. There is relatively diffuse decreased attenuation of the hepatic parenchyma. Gallbladder, pancreas, adrenal glands: The gallbladder and biliary tree are grossly unremarkable. The pancreas and adrenal glands are normal in appearance. Bowel: No evidence of bowel obstruction or acute inflammation. A normal appendix is identified in the right lower quadrant. Peritoneal cavity: No free air or free fluid. No organized collection. Abdominal wall: No bowel containing hernias. Lymphovascular: No pathologically enlarged lymph nodes. Minimal atherosclerotic calcification of the nonaneurysmal abdominal aorta and branch vessels. Musculoskeletal: Degenerative changes are present at the L5-S1 level. Communications Instructor: No additional findings. Impression: 1. Nonobstructive left renal calculi. No hydronephrosis. 2. Previously identified stones in the right kidney are no longer present. The previously identified hydronephrosis of the right kidney and the right perinephric stranding have resolved. There are regions of scarring in the right kidney. 3. Hepatic steatosis. 4. No significant interval change in size of the lobulated cystic lesion in the right adnexa I have personally reviewed the images and the above interpretation and agree with the findings. Procedure Note Talia Harding MD - 02/22/2019 CT RENAL COLIC 02/22/2019 11:03 AM Signs and Symptoms/Comments: N20.0-Calculus of [id number]; Kidney stone, known, follow up Technique: Axial CT images obtained from abdomen immediately superior to level of kidneys through the pelvis without administration of contrast of any kind. Sagittal and coronal reformats generated. Comparison: Multiple prior CTs most recent performed outside facility January 11, 2018. Findings: Kidneys and ureters: No contour deforming lesions are identified. Nonobstructing stones are seen on the left, similar to that of the previous examination. Previously identified right-sided nephrolithiasis is no longer present. The previously identified mild right-sided hydronephrosis has resolved. The right kidney demonstrates multifocal regions of scarring. Previously identified perinephric stranding around the right kidney has resolved. No ureteral calculi. Bladder: The urinary bladder is grossly unremarkable. Uterus, adnexa: A right adnexal cystic lesion appears grossly unchanged from comparison studies most recent January 11, 2018. The uterus is absent. Included lung bases: Included lung bases are clear. Unenhanced liver and spleen, as far as included: No contour deforming lesions. There is relatively diffuse decreased attenuation of the hepatic parenchyma. Gallbladder, pancreas, adrenal glands: The gallbladder and biliary tree are grossly unremarkable. The pancreas and adrenal glands are normal in appearance. Bowel: No evidence of bowel obstruction or acute inflammation. A normal appendix is identified in the right lower quadrant. Peritoneal cavity: No free air or free fluid. No organized collection. Abdominal wall: No bowel containing hernias. Lymphovascular: No pathologically enlarged lymph nodes. Minimal atherosclerotic calcification of the nonaneurysmal abdominal aorta and branch vessels. Musculoskeletal: Degenerative changes are present at the L5-S1 level. Communications Instructor: No additional findings. Impression: 1. Nonobstructive left renal calculi. No hydronephrosis. 2. Previously identified stones in the right kidney are no longer present. The previously identified hydronephrosis of the right kidney and the right perinephric stranding have resolved. There are regions of scarring in the right kidney. 3. Hepatic steatosis. 4. No significant interval change in size of the lobulated cystic lesion in the right adnexa I have personally reviewed the images and the above interpretation and agree with the findings. Clare Ibarra MD IMG CT ORDERA BLES * BACTERIAL CULTURE, URINE (02/22/2019 9:59 EDT) Result Greater than 100,000 CFU/ml KLEBSIELLA PNEUMONIAE 02/23/2019 12:15 EDT [facility] Urine specimen (specimen) URINE / Unknown 02/22/2019 9:59 EDT 02/22/2019 10:14 EDT Narrative Organism Antibiotic Method Susceptibility Greater than 100,000 cfu/ml klebsiella pneumoniae Ampicillin SUSCEPTIBILITY ([place]) Resistant Greater than 100,000 cfu/ml klebsiella pneumoniae Trimethoprim-Sulfametho xazole SUSCEPTIBILITY ([place]) Susceptible Greater than 100,000 cfu/ml klebsiella pneumoniae Nitrofurantoin SUSCEPTIBILITY ([place]) Susceptible Greater than 100,000 cfu/ml klebsiella pneumoniae Ceftriaxone SUSCEPTIBILITY ([place]) Susceptible Greater than 100,000 cfu/ml klebsiella pneumoniae Ciprofloxacin SUSCEPTIBILITY ([place]) Susceptible Greater than 100,000 cfu/ml klebsiella pneumoniae Piperacillin Tazobactam SUSCEPTIBILITY ([place]) Susceptible Greater than 100,000 cfu/ml klebsiella pneumoniae Meropenem SUSCEPTIBILITY ([place]) Susceptible Greater than 100,000 cfu/ml klebsiella pneumoniae Ertapenem SUSCEPTIBILITY ([place]) Susceptible Greater than 100,000 cfu/ml klebsiella pneumoniae Cefazolin SUSCEPTIBILITY ([place]) Susceptible Greater than 100,000 cfu/ml klebsiella pneumoniae Cefazolin SUSCEPTIBILITY ([place]) Cefazolin susceptibility results can [...] only cefpodoxime and cephalexin are on the [facility] inpatient formulary. Clare Ibarra MD MICROBIOLOGY - GENERAL ORDERABLES [facility] [address] [place] [address] * (ABNORMAL) POCT URINE DIPSTICK, CLINITEK (02/22/2019 9:45 EDT) Color YELLOW Yellow 02/22/2019 9:57 T [facility] Clarity, UA Clear Clear 02/22/2019 9:57 T [facility] Glucose Neg Neg 02/22/2019 9:57 [facility] Bilirubin Neg Neg 02/22/2019 9:57 [facility] Ketones Neg Neg 02/22/2019 9:57 [facility] Specific [place] 1.020 1.001 - 1.035 02/22/2019 9:57 [facility] Blood 1+(A) Neg 02/22/2019 9:57 [facility] pH 7.0 4.6 - 8.0 02/22/2019 9:57 [facility] Protein Neg Neg 02/22/2019 9:57 [facility] Urobilinogen 0.2 0.2 - 1.0 mg/dL 02/22/2019 9:57 [facility] Nitrite Pos(A) Neg 02/22/2019 9:57 [facility] Leuk Esterase 1+(A) Neg 02/22/2019 9:57 [facility] extension service advisor ID [id number] 02/22/2019 9:57 T [facility] Comment:Test performed at [facility] Urine specimen (specimen) URINE / Unknown 02/22/2019 9:45 EDT 02/22/2019 9:57 EDT Clare Ibarra MD POINT OF CARE TEST ORDERABLES [facility] [address] [place] [address] documented in this encounter Visit Diagnoses Diagnosis Nephrolithiasis- Primary Calculus of kidney documented in this encounter Additional Health Concerns Infection Onset Date Last Indicated Resolved Time 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
--- OUTSIDE RECORDS SUMMARY | 2023-12-18 00:16 | XMS_ITS | Encounter Summary ---
Author Organization [facility] Address [address] [place] [address] Care Team Providers Care Purse Seining Hand Name Role Phone Sera Gay Primary Care Provider + Reason for Visit * (Routine) - Receiving Office to Obtain Authorization Specialty Diagnoses / Procedures Referred By Claudio quinteros Referred To Contact Procedures CT OUTSIDE IMAGES BODY Unknown, Provider, Referral ID Status Reason Start Date Expiration Date Visits Requested Visits Authorized [id number] Receiving Office to Obtain Authorization 11/20/2019 1 1 Encounter Details Date Type Department Care Team (Late st Contact Info) Description 12/29/2018 Hospital Encounter [facility] Radiology - [place] [address] [place] [address] Social History Tobacco Use Types Packs/Day Years [...] Comments CT OUTSIDE IMAGES BODY Routine 11/20/2019 8:37 EDT documented in this encounter Results * CT OUTSIDE IMAGES BODY (11/20/2019 8:37 EDT) Narrative JOSE JUAN - 11/20/2019 8:37 EDT This is a non-reportable exam. Provider [...] documented as of this encounter Care Teams Purse Seining Hand Relationship Specialty Start Date End Date Sera Gay FNP [address] [place] [address] PCP - General 09/02/13 10/31/22 documented as of this encounter
--- OUTSIDE RECORDS SUMMARY | 2023-12-18 00:16 | XMS_ITS | Encounter Summary ---
Author Organization [facility] Address [address] [place] [address] Care Team Providers Care Chemist Pharmaceutical Name Role Phone Victor Hugo Sera Tommy STEINER Primary Care Provider + Reason for Visit * Reason Onset Date Comments Appointment Related 02/16/2019 Follow-up 02/16/2019 Encounter Details Date Type Department Care Team ([facility] st Contact Info) Description 02/16/2019 Telephone [facility] Urology - [address] [address] Rajesh Ibarra MD [address] [place] [id number] Appointment Related; Follow-up Social History Tobacco Use Types Packs/Day [...] encounter Miscellaneous Notes * Telephone Encounter - Margret Acosta - 02/16/2019 1511 EDT Patient confirmed time for 02/22 * Telephone Encounter - Ny Waggoner - 02/16/2019 1314 EDT LM for patient with rescheduled appt to follow up with Dr Ibarra documented in this encounter Plan of Treatment [...] documented as of this encounter Care Teams Chemist Pharmaceutical Relationship Specialty Start Date End Date Sera Gay FNP [address] [place] [address] PCP - General 09/02/13 10/31/22 documented as of this encounter
--- OUTSIDE RECORDS SUMMARY | 2023-12-18 00:16 | XMS_ITS | Encounter Summary ---
Author Organization [facility] Address [address] [place] [address] Care Team Providers Care Civil Cadd Technician Name Role Phone Victor Hugo Sera STEINER Primary Care Provider + Encounter Details Date Type Department Care Team (Late st Contact Info) Description 01/26/2018 Results Only Imaging [facility] [phone] Unknown, Provider, Social History Tobacco Use Types [...] as of this encounter Plan of Treatment Pending Results Name Type Priority Associated Diagnoses Date /Time OUTSIDE IMAGES - CT BODY Imaging 01/26/2018 15:48 EDT documented as of this encounter Visit Diagnoses Not on filedocumented in this encounter Additional Health Concerns Infection Onset Date Last Indicated Resolved Time 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
--- OUTSIDE RECORDS SUMMARY | 2023-12-18 00:16 | XMS_ITS | Encounter Summary ---
Author Organization [facility] Address [address] [place] [address] Care Team Providers Care Retail Performance Specialist Name Role Phone Sera Gay JATIN Primary Care Provider + Encounter Details Date Type Department Care Team (Late st Contact Info) Description 11/29/2019 Orders Only [facility] Radiology - Main [place] [address] [place], [place] [id number] [place] [address] [address] [place] [address] Social History Tobacco Use Types Packs/Day Years [...] documented as of this encounter Care Teams Retail Performance Specialist Relationship Specialty Start Date End Date Sera Gay FNP [address] [place] [address] PCP - General 09/02/13 10/31/22 documented as of this encounter
--- OUTSIDE RECORDS SUMMARY | 2023-12-18 00:16 | XMS_ITS | Encounter Summary ---
Author Organization [facility] Address [address] [place] [address] Care Team Providers Care Bobbin Loose End Finder Name Role Phone Sera Gay Primary Care Provider + Reason for Visit * Reason Comments Nephrolithiasis Encounter Details Date Type Department Care Team (Late st Contact Info) Description 02/22/2019 9:30 EDT Office Visit [facility] Urology - [facility] [address] [place], [place] [id number] Unknown, Provider, Urology, Ultrasound Nephrolithiasis (Primary Dx) Discharge Disposition: Auto Discharge [...] 01/27/2018 documented as of this encounter Discharge Disposition Disposition Code Departure Means Destination Auto Discharge documented in this encounter Progress Notes * Ash Posadas - 02/22/2019 0930 EDT Renal ultrasound performed 02/22/2019 documented in this encounter Plan of Treatment [...] documented as of this encounter Care Teams Bobbin Loose End Finder Relationship Specialty Start Date End Date Sera Gay FNP [address] [place] [address] PCP - General 09/02/13 10/31/22 documented as of this encounter
--- OUTSIDE RECORDS SUMMARY | 2023-12-18 00:16 | XMS_ITS | Encounter Summary ---
Author Organization [facility] Address [address] [place] [address] Care Team Providers Care Associate Store Director Name Role Phone Victor Hugo Sera STEINER Primary Care Provider + Reason for Visit * Reason Comments Nephrolithiasis Encounter Details Date Type Department Care Team (Late st Contact Info) Description 08/25/2018 11:00 EDT Office Visit [facility] Urology - [facility] [address] [place], [place] [id number] Unknown, MD Shamika Rjaesh Ibarra MD [address] [place] [phone] Urology, Ultrasound Nephrolithiasis (Primary Dx) Discharge Disposition: [...] encounter Progress Notes * Ash Posadas - 08/25/2018 1100 EDT Renal ultrasound performed 08/25/2018 documented in this encounter Plan of Treatment [...] documented as of this encounter Care Teams Associate Store Director Relationship Specialty Start Date End Date Sera Gay FNP [address] [place] [address] PCP - General 09/02/13 10/31/22 documented as of this encounter
--- OUTSIDE RECORDS SUMMARY | 2023-12-18 00:16 | XMS_ITS | Encounter Summary ---
Author Organization [facility] Address [address] [place] [address] Care Team Providers Care Sports Equipment Repairer Name Role Phone Sera Gay JATIN Primary Care Provider + Reason for Visit * Reason Onset Date Comments Coordination Of Care 03/05/2018 Encounter Details Date Type Department Care Team (Late st Contact Info) Description 03/05/2018 Telephone [facility] Urology - [facility] [address] [place] [address] Rajesh Ibarra MD [address] [place] [phone] Coordination Of Care Social History Tobacco Use Types Packs/Day [...] * Telephone Encounter - Sheyla Gleason - 03/05/2018 1606 EST Refaxed H&P form to PCP as requested. Spoke with the office to advise. * Telephone Encounter - Melany Monreal - 03/05/2018 1000 EST Reason for Call: Coordination Of Care Summary/Symptoms: Rosa from Dr. Torie Gay's office calling because they have not received the claearance form that needs to be filled out before the procedure on 03/12 Please fax to [phone] as soon as possible Melany Monreal 03/05/2018 10:00 documented in this encounter Plan of Treatment [...] documented as of this encounter Care Teams Sports Equipment Repairer Relationship Specialty Start Date End Date Sera Gay FNP [address] [place] [address] PCP - General 09/02/13 10/31/22 documented as of this encounter
--- OUTSIDE RECORDS SUMMARY | 2023-12-18 00:16 | XMS_ITS | Encounter Summary ---
Author Organization [facility] Address [address] [place] [address] Care Team Providers Care Glass Cut Off Supervisor Name Role Phone Sera Gay Tommy STEINER Primary Care Provider + Reason for Visit * Reason Onset Date Comments Appointment Related 03/15/2019 Encounter Details Date Type Department Care Team (Late st Contact Info) Description 03/15/2019 Telephone [facility] Urology - [facility] [address] [place] [address] Rajesh Ibarra MD [address] [place] [phone] Appointment Related Social History Tobacco Use [...] encounter Miscellaneous Notes * Telephone Encounter - Angelo Garcia MA - 03/15/2019 1440 EST Called pt . Pt is aware of appointment scheduled on 08/13/19 @11:00 am U/S followed up with Dr. Ibarra @ 11:15. ANGELO GARCIA MA 03/15/2019 14:42' documented in this encounter Plan of Treatment [...] documented as of this encounter Care Teams Glass Cut Off Supervisor Relationship Specialty Start Date End Date Sera Gay FNP [address] [place] [address] PCP - General 09/02/13 10/31/22 documented as of this encounter
--- OUTSIDE RECORDS SUMMARY | 2023-12-18 00:16 | XMS_ITS | Encounter Summary ---
Author Organization [facility] Address [address] [place] [address] Care Team Providers Care Hvac Estimator Name Role Phone Victor HugoSera Tommy STEINER Primary Care Provider + Encounter Details Date Type Department Care Team (Latest Contact Info) Description 12/01/2019 Travel Social History Tobacco Use Types Packs/Day [...] have Coronavirus / COVID-19? No / Unsure 12/01/2019 12:11 EDT documented as of this encounter Functional [...] documented as of this encounter Care Teams Hvac Estimator Relationship Specialty Start Date End Date Sera Gya FNP [address] [place] [address] PCP - General 09/02/13 10/31/22 documented as of this encounter
--- OUTSIDE RECORDS SUMMARY | 2023-12-18 00:16 | XMS_ITS | Encounter Summary ---
Author Organization [facility] Address [address] [place] [address] Care Team Providers Care Director Agricultural Services Name Role Phone Sera Gay Tommy STEINER Primary Care Provider + Reason for Visit * Reason Onset Date Comments Appointment Related 11/22/2019 Encounter Details Date Type Department Care Team (Late st Contact Info) Description 11/22/2019 Telephone [facility] Urology - [facility] [address] [place] [address] Rajesh Ibarra MD [address] [place] [phone] Appointment Related Social History Tobacco Use [...] * Telephone Encounter - Ny Waggoner - 11/22/2019 1219 EDT Spoke to patient with televideo appointment to follow up with Dr Ibarra, call to [facility] to send labs results and radiology reports from ED visit * Telephone Encounter - Melany Kong - 11/22/2019 1134 EDT Reason for Call: Appointment Related Summary/Symptoms: Patient was at [facility] this weekend and was told to call and get aFUR with Dr. Ibarra for this week by Dr. De La Rosa Please call back to schedule Melany Kong 11/22/2019 11:34 documented in this encounter Plan of Treatment [...] as of this encounter Care Teams Director Agricultural Services Relationship Specialty Start Date End Date Sera Gay FNP [address] [place] [address] PCP - General 09/02/13 10/31/22 documented as of this encounter
--- OUTSIDE RECORDS SUMMARY | 2023-12-18 00:16 | XMS_ITS | Encounter Summary ---
Author Organization [facility] Address [address] [place] [address] Care Team Providers Care Scraper Loader Operator Name Role Phone Victor HugoSera Tommy STEINER Primary Care Provider + Encounter Details Date Type Department Care Team (Latest Contact Info) Description 03/12/2018 7:16 EST - 03/12/2018 12:44 EST Hospital Encounter [facility] Peri[facility] Services- [facility] [address], [place] [id number] Rajesh Ibarra MD [address] [place] [address] [phone] Discharge Disposition: Home or Self Care Social [...] Sign Reading Time Taken Comments Blood Pressure 137/88 03/12/2018 1215 EST Pulse - - Temperature 36.5 ??C (97.7 ??F) 03/12/2018 1215 EST Respiratory Rate 17 03/12/2018 1215 EST Oxygen Saturation 94% 03/12/2018 1215 EST Inhaled Oxygen Concentration - - Weight 112 kg (247 lb) 03/10/2018 1533 EST Height 165.1 cm (5' 5) 03/10/2018 1533 EST Body Mass Index 41.1 03/10/2018 1533 EST documented in this encounter Functional Status [...] as of this encounter Discharge Diagnoses Diagnosis N13.5 Crossing vessel and stricture of ureter without hydronephrosis-N13.5[ICD-10-CM] I10 Essential (primary) hypertension-I10[ICD-10-CM] Z87.442 Personal history of urinary calculi-Z87.442[ICD-10-CM] Z87.440 Personal history of urinary (tract) infections-Z87.440[ICD-10-CM] K21.9 Gastro-esophageal reflux disease without esophagitis-K21.9[ICD-10-CM] E11.9 Type 2 diabetes mellitus without complications-E11.9[ICD-10-CM] E66.9 Obesity, unspecified-E66.9[ICD-10-CM] Z68.41 Body mass index (BMI) 40.0-44.9, adult-Z68.41[ICD-10-CM] Z79.899 Other meterman (current) drug therapy-Z79.899[ICD-10-CM] Z87.891 Personal history of nicotine dependence-Z87.891[ICD-10-CM] documented in this encounter Discharge Instructions * Discharge Instructions* Liam Curtis MD - 03/12/2018 10:28 EST Diet: Resume preoperative diet Activity: Activity [...] retention Appointments: Please see Rajesh Ibarra MD for follow-up on 03/24. You will then return to the OR in about 1month to undergo a second procedure for stone treatment. We will call you with the exact date and time. If you have any questions, please call the office at . Future Appointments Date Time Provider Department Center 03/24/2018 15:45 Rajesh Ibarra MD EP5 Uro None What can I expect from having a [...] you. It is important to keep taking [id number] Tylenol (acetaminophen) and ibupr ofen unless your [...] it continues please give us a call. What are things to look out for? [...] 6 hours after stent removal * Medications* Orquidea Syed RN - 03/12/2018 10:16 EST Something similar to Ibuprofen given last @10:00am. Your Diclofenec (an NSAID) is due next at 4:00pm. Diclofenec should be taken every 12hrs (2x daily) SCOPOLAMINE PATCH The patch is located behind your Left ear. Please remove the patch with a gloved hand (or tissue) in 72 hrs, wash your hands and do not touch your eyes! Definition A scopolamine patch (Transdermal Scop or Transderm-V) is an adhesive medication patch that is applied to the skin behind the ear. The patch is treated with the belladonna alkaloid scopolamine, an anticholinergic drug that is a central nervous system depressant and an antiemetic. Purpose Scopolamine patches are prescribed to reduce postoperative nausea and vomiting (PONV) associated with anesthesia and surgery. Scopolamine also has a mild analgesic and sedative effect, which adds to its therapeutic value for some surgical patients. Aftercare Patients who receive a scopolamine patch should not drive or operate heavy machinery until the therapy is complete. Patch therapy generally lasts about three days. Patches should be disposed of according to the unit receptionist's directions in a secure place to ensure that small children or pets do notget access to them. If PONV has not resolved after patch therapy has ended, patients should talk totheir doctor about their treatment options. Risks Possible complications or side effects from transdermal scopolamine include but are not limited to:short-term memory loss, fatigue, confusion, hallucinations, difficulty urinating, and changes in heart rate. The drug can trigger seizures and psychotic delusions in patients with a history of these problems. Dizziness, nausea, headache, and hypotension (low blood pressure) have also been reported in some patients upon discontinuation of scopolamine patch therapy. Patients who experience eye pain with redness and possible blurred vision should remove the patch immediately and call their doctor, since these symptoms could be signs of a rare but possible side effect of scopolamine called narrow-angle glaucoma. Blurriness with or without pupil dilation is also a potential but generally harmless side effect of the drug. Normal results When scopolamine patch therapy works, it reduces or eliminates post-surgical nausea and vomiting. Patients frequently experience dry mouth as a common side effect of the drug. documented in this encounter Medications at Time [...] hours as needed for Pain. 03/06/2016 06/14/2020 cephALEXin (KEFLEX) 500 mg capsule Take 1 Cap by mouth 2 times daily for 3 days. 6 Cap 03/12/2018 03/15/2018 diclofenac (VOLTAREN) 50 mg EC tablet Take 1 Tab by mouth 2 times daily as needed for Pain. 10 Tab 03/12/2018 03/17/2018 phenazopyridine (PYRIDIUM) 200 mg tablet Take 1 Tab by mouth 3 times daily as needed for Pain. 10 Tab 03/12/2018 03/17/2018 tamsulosin (FLOMAX) 0.4 mg capsule Take 1 Cap by mouth daily for 30 days. 30 Cap 03/12/2018 04/11/2018 documented as of this encounter Ordered Prescriptions Prescription Sig Dispensed Refills Start Date End Da te cephALEXin (KEFLEX) 500 mg capsule Take 1 Cap by mouth 2 times daily for 3 days. 6 Cap 03/12/2018 03/15/2018 tamsulosin (FLOMAX) 0.4 mg capsule Take 1 Cap by mouth daily for 30 days. 30 Cap 03/12/2018 04/11/2018 diclofenac (VOLTAREN) 50 mg EC tablet Take 1 Tab by mouth 2 times daily as needed for Pain. 10 Tab 03/12/2018 03/17/2018 phenazopyridine (PYRIDIUM) 200 mg tablet Take 1 Tab by mouth 3 times daily as needed for Pain. 10 Tab 03/12/2018 03/17/2018 documented in this encounter Discharge Disposition Disposition Code Departure Means Destination Home or Self Care documented in this encounter Progress Notes * Dmitri Pollack, ALEXA - 03/10/2018 1559 EST Blessing Ortiz has been instructed as follows regarding medication administration for the day of thescheduled procedure. Date of Surgery: 03-12-2018 Instructions for Taking Medications Day of Surgery Medication Sig Last Dose Hold DOS Take DOS acetaminophen (TYLENOL) 325 mg tablet Take 2 Tabs by mouth every 4 hours as needed for Pain. Yes amitriptyline (ELAVIL) 25 mg tablet Take 25 mg by mouth daily. Yes clidinium-chlordiazepoxide (LIBRAX, WITH CLIDINIUM,) 5-2.5 mg per capsule Take 1 Cap by mouth 3 times daily. Yes gabapentin (NEURONTIN) 400 mg capsule Take 400 mg by mouth 3 times daily. Yes METOPROLOL SUCCINATE ORAL Take 25 mg by mouth 2 times daily. Yes pantoprazole (PROTONIX) 40 mg tablet Take 40 mg by mouth daily. Yes phenazopyridine (PYRIDIUM) 200 mg tablet Take 1 Tab by mouth 3 times daily as needed for Pain. Patient not taking: Reported on 04/09/2016 piroxicam (FELDENE) 10 mg capsule Take 10 mg by mouth daily. 03-10-2018 Instructed pt to avoid NSAIDS and OTC supplements from today until after her surgery. documented in this encounter H&P Notes * Gale Chaidez PA - 03/12/2018 0741 EST The preoperative history and physical which was performed within 30 days of this procedure has been reviewed and the clinically appropriate elements of the physical examination have been repeated. There are no changes to the documented history and physical or if so such changes are documented below KELLY Veliz 03/12/2018 7:41 Source Note - COIN COLLECTOR, SCAN 2 - 03/11/2018 8:51 EST documented in this encounter OR Notes * OR Surgeon - Rajesh Ibarra - 03/12/2018 0000 EST OPERATIVE REPORT SERVICE DATE: 03/12/2018 SURGEON: Rajesh Ibarra MD SOCIAL SERVICES ASSISTANT: Liam Curtis MD PREOPERATIVE DIAGNOSES: Right hydronephrosis, right renal calculi, possible right soft tissue mass,possible right ureteral stricture. POSTOPERATIVE DIAGNOSES: Bilateral ureteral strictures. PROCEDURES: Right-sided ureteroscopy with retrograde pyelogram and laser incision of ureteral stricture x2 and stent placement. ANESTHESIA: COMPLICATIONS: None. STENTS: A 7-Beninese 24 cm double-J stent was placed. INDICATIONS: This is a 47-year-old female with a history of bilateral nephrolithiasis. She has had left-sided intervention in the past and then began experiencing right-sided flank discomfort. She was found on imaging to have nonobstructing renal calculi on the right side, as well as a dilated edematous kidney, with apparent tapering of the proximal ureter. We discussed options including CT urography versus definitive visualization and she presents now for ureteroscopy. NARRATIVE: After obtaining informed consent, she was taken to the operating room and placed in supine position. A WHO step 1 was performed and she underwent general anesthesia and was placed in lithotomy position and prepped and draped in the standard sterile fashion. WHO step 2 was performed and the cystoscope with the 30-degree lens was guided into the bladder. The bladder was thoroughly inspected and there were no papillary appearing tumors or stones at the base of the bladder. We identifiedthe right ureteral orifice and passed a 0.35 Sensor wire up into the kidney, confirmed fluoroscopically. We then entered with a flexible digital ureteroscope adjacent to the safety wire. There was somewhat of a narrow area at the ureteral orifice, but we were able to access this and proceed toward the proximal ureter. Prior to the area of the UPJ, we identified a narrowed ring-like area. It was not a pinpoint stricture, but it certainly was somewhat narrowed and did not allow the scope to pass. We tried a second wire; however, it passed on initial opening, but then got caught up again at the second site of apparent narrowing. We then performed a retrograde pyelogram through the scope, which I interpreted on myown. There were as expected 2 areas of narrowing with slow filling of the kidney. There was no evidence of extravasation and no obvious filling defects. We tried again to get through the area and then decided, as it was a somewhat flimsy appearing stricture, to incise with the holmium laser. We used a 200 micron fiber at 1.0 and 10 and incised at the 7 to 8 o'clock position. After incising, we were able to get through this area; however, it looked like there may have been a false passage, potentially from the 2nd wire passage, or just from the scope itself. The wire was going through a narrowed ureter, which was superolateral. There was some fat and clearexternal area outside of the ureter. We carefully manipulated the scope adjacent to the safety wireby passing this area and then encountered another scarred region. In a similar fashion, we used thelaser fiber to carefully open this more at the 6 o'clock position. After incising some scarred tissue, we entered the kidney. It was obstructed in terms of its capacious appearance. There were no obvious tumors or masses of concern. I identified the stones, but at this point I did not want to do further treatment and we backed the scope out, looking at the 2 areas that were now open. We then, over the safety wire, passed a 7-Beninese 24 cm double-J stent with a good curl in the kidney as well as in the bladder. She tolerated the procedure well. PLAN: Will be to allow for these areas to open and heal and bring her back in 3 to 4 weeks for reinspection of the ureter and definitive treatment of her stones. Unless otherwise noted, there were no complications, no blood loss, no cultures obtained, no specimens removed, and no drains retained. Rajesh Ibarra MD 10 17 AM / Rajesh Ibarra MD en Confirmation: [id number] Dictation ID: [id number] documented in this encounter Miscellaneous Notes * Anesthesia Post-Eval - Margy Jarvis MD - 03/12/2018 1234 EST Anesthesia Post op Note Blessing Allan Angel [id number] Anesthesia received: General; Vital Signs: Temp: 36 ??C (96.8 ??F), Heart Rate: 89 BPM, BP: 137/88, Resp: 17, SpO2: 94 % Vital signs Stable: Yes Consciousness: Recovered to baseline Patient's participation in evaluation:Able to participate Temperature Status: Normothermic Respiratory Status: Airway patent Supplemental O2: Room air Oxygen Saturation: Within patient's normal range Cardiovascular Status: Within patient's normal range Post-op Hydration: Adequate Nausea / Vomiting: None Pain Control: Adequate Current Pain Score: Numeric Pain Level (Scale 1-10): 5 Post-op Assessment: Tolerated procedure well Disposition: Home Complications: No apparent anesthetic complications Margy Jarvis MD 03/12/2018 12:34 * Brief Op Note - Liam Curtis MD - 03/12/2018 1003 EST BRIEF OP NOTE Surgeon: Dr. Ibarra Adult Remedial Education Instructor: Dr. Curtis Pre-op diagnosis: Right nephrolithiasis Post-op diagnosis: Right nephrolithiasis, proximal ureteral strictures Procedure: Cystoscopy, right retrograde pyelogram, right ureteroscopy with laser incision of ureteral stricture x 2, right ureteral stent placement Anesth: general Findings: Two very tight proximal left ureteral strictures, scope unable to be traversed up to kidney, strictures incised with laser, stent placed over wire without difficulty EBL: minimal IVF: Per anesth UOP: NR Specimen: none Cultures: none Foreign Material Retained: 7 x 24 JJ right ureteral stent Complications: none Dispo: PACU in stable condition, then home Liam Curtis MD 03/12/2018 10:03 documented in this encounter Plan of Treatment Not on file documented as of this encounter Procedures Procedure Name Priority Date/Time Associated Diagnosis Comments IMPLANT RECORD - SCANNED 03/20/2018 22:28 EST IMPLANT RECORD - SCANNED 03/16/2018 15:24 EST ECG REPORT - SCANNED 03/16/2018 15:24 EST RETROGRADE UROGRAM Routine 03/12/2018 10 :01 EST documented in this encounter Results * IMPLANT RECORD - SCANNED (03/20/2018 22:28 EST) 03/20/2018 22:2 8 EST Scan 2 Manufacturing Technologist PROCEDURE/MINOR ELSA GICAL ORDERABLES * IMPLANT RECORD - SCANNED (03/16/2018 15:24 EST) 03/16/2018 15:2 4 EST Scan 2 Manufacturing Technologist PROCEDURE/MINOR ELSA GICAL ORDERABLES * ECG REPORT - SCANNED (03/16/2018 15:24 EST) 03/16/2018 15:2 4 EST Scan 2 Manufacturing Technologist PROCEDURE/MINOR ELSA GICAL ORDERABLES * RETROGRADE UROGRAM (03/12/2018 10:01 EST) Anatomical Region Laterality Modality Other 03/12/2018 10:0 1 EST Narrative 03/12/2018 10:01 EST Non Reportable Exam Procedure Note CREMATORY ATTENDANT, IMAGING - 03/12/2018 Non Reportable Exam Rajesh Ibarra MD IMG FLUOROSCO PY ORDERABLES documented in this encounter Visit Diagnoses Not on filedocumented in this encounter Administered Medications Inactive Administered Medications - up to 3 most recent administrations Medication Order MAR Action Action Date Dose Rate Site acetaminophen (TYLENOL) tablet 1,000 mg 1,000 mg, oral, PRN, 1 dose, Starting on Danette 03/12/18 at 1006, Until Danette 03/12/18 at 1109, Fever, Routine, Recovery (only) Given 03/12/2018 11:09 EST 1,000 mg atropine 0.1 mg/mL syringe 0.5 mg 0.5 mg, intravenous, PRN, Starting on Danette 03/12/18 at 1006, Until Danette 03/12/18 at 1509, Symptomatic HR < 50, Routine, Recovery (only) ceFAZolin (ANCEF) syringe 2 g 2 g, intravenous, Administer over 10 Minutes, PRE-OP ONCE, 1 dose, On Danette 03/12/18 at 0800, Routine Given by Other 03/12/2018 9:02 EST 2 g dextrose 50 % solution 12.5 g 12.5 g, intravenous, PRN, Starting on Danette 03/12/18 at 0816, Until Danette 03/12/18 at 1509, Low Blood Sugar, Routine, Pre-Op DOS Rx Approved diphenhydrAMINE (BENADRYL) injection 12.5 mg 12.5 mg, intravenous, PRN, 1 dose, Starting on Danette 03/12/18 at 1006, Until Danette 03/12/18 at 1509, nausea, Routine, Recovery (only) fentaNYL citrate (PF) injection 25-50 mcg 25-50 mcg, intravenous, EVERY 5 MIN PRN, Starting on Danette 03/12/18 at 1006, Until Danette 03/12/18 at 1509, Pain, Routine, Recovery (only) Given 03/12/2018 11:33 EST 25 mcg Given 03/12/2018 11:19 EST 25 mcg glucagon injection 1 mg 1 mg, intramuscular, PRN, Starting on Danette 03/12/18 at 0816, Until Danette 03/12/18 at 1509, Low Blood Sugar, Routine, Pre-Op DOS Rx Approved lactated ringers (LR) infusion at 25 mL/hr, intravenous, CONTINUOUS, Starting on Danette 03/12/18 at 0845, Until Danette 03/12/18 at 1509, Routine, Pre-Op DOS Rx Approved New Bag 03/12/2018 8:19 EST 25 mL/hr lactated ringers (LR) infusion at 75 mL/hr, intravenous, CONTINUOUS, Starting on Danette 03/12/18 at 1030, Until Danette 03/12/18 at 1509, Routine, Recovery (only) Rate Documented 03/12/2018 10:19 EST 75 mL/hr metoCLOPramide (REGLAN) injection 10 mg 10 mg, intravenous, PRN, 1 dose, Starting on Danette 03/12/18 at 1006, Until Danette 03/12/18 at 1509, Nausea, Routine, Recovery (only) naloxone (NARCAN) injection 0.2 mg 0.2 mg, intravenous, PRN, Starting on Danette 03/12/18 at 1006, Until Danette 03/12/18 at 1509, Opioid Reversal, Routine, Recovery (only) phenazopyridine (PYRIDIUM) tablet 200 mg 200 mg, oral, ONCE PRN, 1 dose, Starting on Danette 03/12/18 at 1012, Until Danette 03/12/18 at 1051, Pain, Routine Given 03/12/2018 10:51 EST 200 mg documented in this encounter Discontinued Medications Medication Sig Discontinue Reason Start Date End Da te docusate sodium (COLACE) 100 mg capsule Take 1 Cap by mouth 2 times daily. Error 03/06/2016 03/10/2018 tamsulosin (FLOMAX) 0.4 mg capsule Take 1 Cap by mouth daily. Error 03/18/2016 03/10/2018 cefpodoxime (VANTIN) 200 mg tablet Take 1 Tab by mouth every 12 hours. Error 01/27/2018 03/10/2018 phenazopyridine (PYRIDIUM) 200 mg tablet Take 1 Tab by mouth 3 times daily as needed for Pain. Reorder 03/18/2016 03/12/2018 documented as of this encounter Active and Recently Administered Medications Times are shown in EST. Scheduled Medication Order 03/10/2018 03/11/2018 03/12/2018 ceFAZolin (ANCEF) syringe 2 g (COMPLETED) 2 g, intravenous, Administer over 10 Minutes, PRE-OP ONCE, 1 dose, On Danette 03/12/18 at 0800, Routine 0902 (Given by Other - Provider: Leeroy Vincelette, RN - Comment: Given by anesthesia provider, Diamante Diallo) Continuous Medication Order 03/10/2018 03/11/2018 03/12/2018 lactated ringers (LR) infusion at 25 mL/hr, intravenous, CONTINUOUS, Starting on Danette 03/12/18 at 0845, Until Danette 03/12/18 at 1509, Routine, Pre-Op DOS Rx Approved 0819 (New Bag - Prov ider: Margret Sorensen RN)1018 (Completed - Provider: Orquidea Syed RN) lactated ringers (LR) infusion at 75 mL/hr, intravenous, CONTINUOUS, Starting on Danette 03/12/18 at 1030, Until Danette 03/12/18 at 1509, Routine, Recovery (only) 1018 (Continued Infu renan - Provider: Orquidea Syed RN)1019 (Rate Documented - Provider: Orquidea Syed RN) PRN Medication Order 03/10/2018 03/11/2018 03/12/2018 acetaminophen (TYLENOL) tablet 1,000 mg (COMPLETED)(Linked Group 1) 1,000 mg, oral, PRN, 1 dose, Starting on Danette 03/12/18 at 1006, Until Danette 03/12/18 at 1109, Fever, Routine, Recovery (only) 1109 (Given - Provid er: Orquidea Syed RN) atropine 0.1 mg/mL syringe 0.5 mg 0.5 mg, intravenous, PRN, Starting on Danette 03/12/18 at 1006, Until Danette 03/12/18 at 1509, Symptomatic HR < 50, Routine, Recovery (only) dextrose 50 % solution 12.5 g 12.5 g, intravenous, PRN, Starting on Danette 03/12/18 at 0816, Until Danette 03/12/18 at 1509, Low Blood Sugar, Routine, Pre-Op DOS Rx Approved diphenhydrAMINE (BENADRYL) injection 12.5 mg 12.5 mg, intravenous, PRN, 1 dose, Starting on Danette 03/12/18 at 1006, Until Danette 03/12/18 at 1509, nausea, Routine, Recovery (only) fentaNYL citrate (PF) injection 25-50 mcg 25-50 mcg, intravenous, EVERY 5 MIN PRN, Starting on Danette 11/15/18 at 1006, Until Danette 03/12/18 at 1509, Pain, Routine, Recovery (only) 1119 (Given - Provid er: Orquidea Syed RN)1133 (Given - Provider: Orquidea Syed RN) glucagon injection 1 mg 1 mg, intramuscular, PRN, Starting on Danette 03/12/18 at 0816, Until Danette 03/12/18 at 1509, Low Blood Sugar, Routine, Pre-Op DOS Rx Approved metoCLOPramide (REGLAN) injection 10 mg 10 mg, intravenous, PRN, 1 dose, Starting on Danette 03/12/18 at 1006, Until Danette 03/12/18 at 1509, Nausea, Routine, Recovery (only) naloxone (NARCAN) injection 0.2 mg 0.2 mg, intravenous, PRN, Starting on Danette 03/12/18 at 1006, Until Danette 03/12/18 at 1509, Opioid Reversal, Routine, Recovery (only) phenazopyridine (PYRIDIUM) tablet 200 mg (COMPLETED) 200 mg, oral, ONCE PRN, 1 dose, Starting on Danette 03/12/18 at 1012, Until Danette 03/12/18 at 1051, Pain, Routine 1051 (Given - Provid er: Orquidea Syed RN) Linked Groups Order Group 1: acetaminophen (TYLENOL) solution unit dose cup 995 mg (COMPLETED) 995 mg (rounded from 1,000 mg), oral, PRN, 1 dose, Starting on Danette 03/12/18 at 1006, Until Danette 03/12/18 at 1109, Fever, Routine, Recovery (only) Or acetaminophen (TYLENOL) tablet 1,000 mg (COMPLETED)Jump to med 1,000 mg, oral, PRN, 1 dose, Starting on Danette 03/12/18 at 1006, Until Danette 03/12/18 at 1109, Fever, Routine, Recovery (only) documented in this encounter Orders Medications Ordered That John ht Not Have Been Administered Count Last Ordered Date First Ordered Date acetaminophen (TYLENOL) solu tion unit dose cup 995 mg 1 03/12/2018 atropine 0.1 mg/mL syringe 0.5 mg 1 018 dextrose 50 % solution 12.5 g 1 03/12/2018 diphenhydrAMINE (BENADRYL) i njection 12.5 mg 1 03/12/2018 glucagon injection 1 mg 1 03/12/2018 metoCLOPramide (REGLAN) injection 10 mg 1 1 05/12/2017 naloxone (NARCAN) injection 0.2 mg 1 2017 Transfer Count Last Ordered Date First Orde red Date NOTIFY PPS PACU PATIENT DISCHARGE 1 018 NOTIFY PPS PATIENT ARRIVAL IN PACU 1 2017 Discharge Count Last Ordered Date First Orde red Date DISCHARGE PATIENT 1 03/12/2018 documented in this encounter Additional Health Concerns Infection Onset Date Last Indicated Resolved Time 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
--- OUTSIDE RECORDS SUMMARY | 2023-12-18 00:16 | XMS_ITS | Encounter Summary ---
Author Organization [facility] Address [address] [place] [address] Care Team Providers Care Tailings Dam Pumper Name Role Phone Sera Gay Tommy STEINER Primary Care Provider + Reason for Visit * Reason Onset Date Comments Appointment Related 02/04/2018 Encounter Details Date Type Department Care Team (Late st Contact Info) Description 02/04/2018 Telephone [facility] - [facility] [address] [place] [address] Rajesh Ibarra MD [address] [place] [phone] Appointment Related Social History Tobacco Use [...] * Telephone Encounter - Sheyla Gleason - 02/04/2018 1351 EDT Voicemail left for patient advising pre-op H&P appointment has been scheduled with her PCP on 03/06/2018 at 8:20 am. documented in this encounter Plan of Treatment [...] documented as of this encounter Care Teams Tailings Dam Pumper Relationship Specialty Start Date End Date Sera Gay FNP [address] [place] [address] PCP - General 09/02/13 10/31/22 documented as of this encounter
--- OUTSIDE RECORDS SUMMARY | 2023-12-18 00:16 | XMS_ITS | Encounter Summary ---
Author Organization [facility] Address [address] [place] [address] Care Team Providers Care Oxygen Plant Operator Name Role Phone Sera Gay Tommy STEINER Primary Care Provider + Reason for Visit * Reason Onset Date Comments Appointment Related 04/14/2018 Encounter Details Date Type Department Care Team (Late st Contact Info) Description 04/14/2018 Telephone [facility] - [facility] [address] [place] [address] Rajesh Ibarra MD [address] [place] [phone] Appointment Related Social History Tobacco Use [...] * Telephone Encounter - Sheyla Gleason - 04/14/2018 1311 EST Voicemail left for patient advising POV with cysto stent removal scheduled on 04/17/2018 at 3:[address] Ibarra. Provided call back number for questions. documented in this encounter Plan of Treatment [...] documented as of this encounter Care Teams Oxygen Plant Operator Relationship Specialty Start Date End Date Sera Gay FNP [address] [place] [address] PCP - General 09/02/13 10/31/22 documented as of this encounter
--- OUTSIDE RECORDS SUMMARY | 2023-12-18 00:16 | XMS_ITS | Encounter Summary ---
Author Organization [facility] Address [address] [place] [address] Care Team Providers Care Janitorial Cleaner Name Role Phone Sera Gay JATIN Primary Care Provider + Reason for Visit * Reason Comments Post-OP Follow Up Cystoscopy Stent Removal * Follow Up (48 Hrs (Urgent)) - Closed Specialty Diagnoses / Procedures Referred By Claudio quinteros Referred To Contact Urology Diagnoses Calculus of kidney Cuong Oneill MD [address] [place] [address] Rajesh Ibarra MD [address] [place] [phone] Referral ID Status Reason Start Date Expiration Date V isits Requested Visits Authorized [id number] Closed Specialty Services Required 04/13/2018 1 1 Encounter Details Date Type Department Care Team (Latest Contact Info) Description 04/17/2018 15:30 EST Post-op Visit [facility] U[facility] - [address] [id number] Rajesh Ibarra MD [address] [place] [phone] Nephrolithiasis (Primary Dx); Ureteral stricture Social [...] encounter Progress Notes * Rajesh Ibarra - 04/17/2018 1530 EST Ms Ortiz is a 47-year-old female who has a history of bilateral nephrolithiasis. She had an obstructed appearing right kidney with associated pyelonephritis and, when we took her for ureteroscopy toevaluate as well as treat some nonobstructing stones, we encountered 2 proximal narrowed strictured areas. We went ahead with laser incision, followed by stent placement, and then allowed time for this to heal. I recently took her back to the operating room and the areas were opened and we were able to drive through with our flexible digital ureteroscope into the kidney. There were no obvious signs of infection. We made multiple passes, removing multiple small nonobstructing stones. The stone composition is pending. A stent was left in place and she presents now for removal. PROCEDURE: After obtaining informed consent, she was taken to the exam room, placed in the supine position. She was prepped and draped in the standard sterile fashion. The cystoscope was inserted into the bladder. The stent was seen emanating from the ureteral orifice and grasped with a flexible grasper and removed in its entirety. She tolerated the procedure well. She has taken postoperative antibiotics with Bactrim this morning and will take her last this evening. Plan will be to see her back in 4 to 6 weeks with a postoperative ultrasound and a 24-hour urine evaluation. documented in this encounter Plan of Treatment [...] documented as of this encounter Care Teams Janitorial Cleaner Relationship Specialty Start Date End Date Sera Gay FNP [address] [place] [address] PCP - General 09/02/13 10/31/22 documented as of this encounter
--- OUTSIDE RECORDS SUMMARY | 2023-12-18 00:17 | XMS_ITS | Encounter Summary ---
Author Organization [facility] Address [address] [place] [address] Care Team Providers Care Church History Teacher Name Role Phone Sera Gay JATIN Primary Care Provider + Reason for Visit * Reason Onset Date Comments Paperwork request 03/22/2016 [place] fax sent 03/13 Encounter Details Date Type Department Care Team ([facility] st Contact Info) Description 03/22/2016 Telephone [facility] Urology - [address] [address] Rajesh Ibarra MD [address] [place] [phone] Paperwork request ([place] fax sent 03/13) Social History Tobacco Use Types Packs/Day Years [...] shopping? (15 years old or older) No 02/29/2016 Cognitive Status Response Date of Assessm ent Because of a physical, menta l, or emotional condition, do you have serious difficulty concentrating, remembering, or making decisions? (5 years old or older) No 02/29/2016 documented as of this encounter Miscellaneous Notes * Telephone Encounter - Beverley Coto RN - 03/22/2016 1419 EST TC to pt's . Paperwork has been filled out, just awaiting Dr. Ibarra's signature. Pt willbe back in the office on 03/26/16. Per pt's paperwork needs to be in by 03/27/16. TC to pt's , left msg. Paperwork was signed and faxed on 03/25/16. * Telephone Encounter - Rodriguez Adams - 03/22/2016 1051 EST Reason for Call: Paperwork request ([facility] fax sent 03/13) Summary/Symptoms: [facility] paperwork sent via faxon 03/13 from patients employer [employer] They have not received, please call patient to confirm when to expect Rodriguez Adams 03/22/2016 10:51 documented in this encounter Plan of Treatment [...] documented as of this encounter Care Teams Church History Teacher Relationship Specialty Start Date End Date Sera Gay FNP [address] [place] [address] PCP - General 09/02/13 10/31/22 documented as of this encounter
--- OUTSIDE RECORDS SUMMARY | 2023-12-18 00:17 | XMS_ITS | Encounter Summary ---
Author Organization [facility] Address [address] [place] [address] Care Team Providers Care Curing Press Operator Name Role Phone Victor Hugo Sera STEINER Primary Care Provider + Reason for Referral * Radiology Services (Routine) - Closed Specialty Diagnoses / Procedures Referred By Alessandroac t Referred To Contact Diagnoses Lumbago Procedures L SPINE 4 OR MORE VIEWS Isauro Minaya PA-C [address] [place] [phone] Referral ID Status Reason Start Date Expiration Date Visits Re quested Visits Authorized [id number] Closed 09/09/2013 1 1 Encounter Details Date Type Department Care Team (Late st Contact Info) Description 09/09/2013 Orders Only [facility] Spine Program - [address] [address] Isauro Minaya PA-C [address] [place] [phone] Lumbago (Primary Dx) Social History Tobacco Use Types Packs/Day Years Used Date Smoking Tobacco: Never Assessed Sex and Gender Information Value Date Recorded Sex Assigned at Female 12/09/2019 16:14 EDT Gender Identity Female 12/01/2019 12:11 EDT Sexual Orientation Straight 12/09/2019 16 :14 EDT documented as of this encounter Plan of Treatment Not on file documented as of this encounter Procedures Procedure Name Priority Date/Time Associated Diagnosis Comments L SPINE 4 OR MORE VIEWS Routine 09/10/2013 12:44 EDT Lumbago documented in this encounter Results * L SPINE 4 OR MORE VIEWS (09/10/2013 12:44 EDT) Anatomical Region Laterality Modality Other 09/10/2013 12:4 4 EDT 09/10/2013 15:33 EDT Narrative 09/10/2013 15:33 EDT L SPINE 4 OR MORE VIEWS ??09/10/2013 12:44 PM Signs and Symptoms/Comments: ?? 724.5-Vbqdami-WQJ-9-CM; low back pain Comparison: None Technique: Four radiographic views of the lumbar spine AP, lateral, and lateral views during flexion and extension. Findings: Five nonrib-bearing lumbar type vertebrae are present. The alignment is normal. The intervertebral disc spaces are preserved. There is no evidence of fracture or vertebral body height loss. No instability is provoked by flexion or extension. There is normal bone mineralization. The sacroiliac joints are normal. Incidentally noted are rounded radiopacities projecting over the region of the renal shadow, two on the left and one on the right. An IUD is in the expected position. Impression: 1. ??Normal radiographic appearance of the lumbar spine. 2. ??Bilateral radiopaque renal stones. ?? I have personally reviewed the images and the above interpretation and agree with the findings. Procedure Note 09/10/2013 L SPINE 4 OR MORE VIEWS 09/10/2013 12:44 PM Signs and Symptoms/Comments: 724.3-Sygbexx-QRX-9-CM; low back pain Comparison: None Technique: Four radiographic views of the lumbar spine AP, lateral, and lateral views during flexion and extension. Findings: Five nonrib-bearing lumbar type vertebrae are present. The alignment is normal. The intervertebral disc spaces are preserved. There is no evidence of fracture or vertebral body height loss. No instability is provoked by flexion or extension. There is normal bone mineralization. The sacroiliac joints are normal. Incidentally noted are rounded radiopacities projecting over the region of the renal shadow, two on the left and one on the right. An IUD is in the expected position. Impression: 1. Normal radiographic appearance of the lumbar spine. 2. Bilateral radiopaque renal stones. I have personally reviewed the images and the above interpretation and agree with the findings. Isauro [facility] ORDER[facility]LES documented in this encounter Visit Diagnoses Diagnosis Lumbago- Primary documented in this encounter Care Teams Curing Press Operator Relationship Specialty Start Date End Date Sera Gay FNP [address] [place] [address] PCP - General 09/02/13 10/31/22 documented as of this encounter
--- OUTSIDE RECORDS SUMMARY | 2023-12-18 00:17 | XMS_ITS | Encounter Summary ---
Author Organization [facility] Address [address] [place] [address] Care Team Providers Care Manufacturing Baker Name Role Phone [place]Sera Tommy STEINER Primary Care Provider + Encounter Details Date Type Department Care Team (Late st Contact Info) Description 03/14/2016 Pre-Procedure Orders Encounter [facility] Urology - [facility] [address], [place] [phone] Rajesh Ibarra MD [address] [place] [phone] Social History Tobacco Use Types Packs/Day Years [...] No 02/29/2016 documented as of this encounter Plan of [...] documented as of this encounter Care Teams Manufacturing Baker Relationship Specialty Start Date End Date Sera Gay FNP [address] [place] [address] PCP - General 09/02/13 10/31/22 documented as of this encounter
--- OUTSIDE RECORDS SUMMARY | 2023-12-18 00:17 | XMS_ITS | Encounter Summary ---
Author Organization [facility] Address [address] [place] [address] Care Team Providers Care Central Station Operator Name Role Phone Victor HugoSera Tommy ROGERSP Primary Care Provider + Reason for Visit * Reason Comments Back Pain low back pain * Consult (Routine) - Specialty Report Received Specialty Diagnoses / Procedures Referred By Claudio quinteros Referred To Contact Pain Medicine Diagnoses Low back pain Isauro Minaya PA-C [address] [facility] [place] [phone] [facility] [address] [place] [address] Referral ID Status Reason Start Date Expiration Date Visits Requested Visits Authorized [id number] Specialty Report Received Specialty Services Required 09/10/2013 1 1 Encounter Details Date Type Department Care Team (Latest Contact Info) Description 10/11/2013 15:15 EDT Office Visit [facility] Interventional Pain [address] [place] [address] Sindy Duncan MD [address] [place] [address] Facet arthritis of lumbar region (CMS-HCC) (Primary Dx); Low back pain Social History Tobacco Use Types Packs/Day Years [...] Sign Reading Time Taken Comments Blood Pressure 122/84 10/11/2013 1518 EDT Pulse 88 10/11/2013 1518 EDT Temperature 36.7 ??C (98 ??F) 10/11/2013 1451 EDT Respiratory Rate 16 10/11/2013 1518 EDT Oxygen Saturation - - Inhaled Oxygen Concentration - - Weight 113.4 kg (250 lb) 10/11/2013 1451 EDT Height 165.1 cm (5' 5) 10/11/2013 1451 EDT Body Mass Index 41.6 10/11/2013 1451 EDT documented in this encounter Discharge Diagnoses Diagnosis 716.98 ARTHROPATHY NOS-OTHER SITE[ICD-9-CM] 724.2 LUMBAGO[ICD-9-CM] documented in this encounter Patient Instructions * Patient Instructions* Adan Alejandre RN - 10/11/2013 15:08 EDT [facility] [place] [address] Patient Instructions You have had your bilateral lumbar Facet Steroid Injection. The purpose of this procedure has been to place medication which may help relieve your pain. Steroid may be used to decrease the swelling and nerve irritation which may be causing your pain. The following information should help you over the next few days regarding what you may expect. Please take it easy for the rest of today. DO NOT drive a car for the remainder of the day. If you feel sore where the needle(s) entered for the block or develop a flare-up of pain over the next few days, please use ice on the area. You may leave the ice on for up to 20 minutes at a time. Do not use heat, as this may cause swelling. As long as your primary doctor has indicated no restrictions, you may take a mild pain medicine, such as acetaminophen (Tylenol), ibuprofen (Advil, Nuprin, Motrin IB, etc.) or aspirin, if needed. The steroid injection usually takes a few days to become effective. On average, you may notice somerelief in 3 -5 days. However, it may take up to 10 - 14 days to know whether the injection was helpful. If the block causes numbness/weakness, it should wear off within a few hours. If the area that the needle(s) were inserted becomes hot, red, swollen, or increasingly tender, or if you develop a fever (100.5 or greater) or chills along with these symptoms, please call our office immediately. If you develop increasingly severe neck/back pain, continued numbness or weakness of the arms/legs or changes in your bladder or bowel functions, please call our office at once. Today please stay busy/active doing things that would normally cause you pain. Keep track of your hours of relief and your percentage of relief today (0 to 100 , 0 = no relief and 100% being total relief). Separate the pressure and tightness that we caused you from your regular pain and see what your relief is. Call us back tomorrow with this information. Procedure end time: 3:10 PM Pain relief start time 3:15 Returned to baseline pain Instructions for follow-up Patient Education Topic: Method: Handout and Verbal Taught to: Patient Barriers: None Outcomes: verbalized understanding Signature:ADAN ALEJANDRE RN If you have any questions about your block, please call documented in this encounter Progress Notes * Sindy Duncan - 10/11/2013 1454 EDT Patient Name: Blessing Ortiz : 1970 Date of Service: 10/11/2013 Gear Hobber Operator: Sindy Duncan MD Intellectual Property Lawyer: none Interval History: Ms. Ortiz presents at the request of Isauro Minaya for evaluation and treatment of her chronic low back pain. The details of the current complaint are thoroughly described in the consultation notes from their last encounter including pain onset, location, course, workup, therapeutic attempts, and associated functional limitations. The patient reports no recent changes in the character, quality, or distribution of the pain. There are no recent onset of new associated symptoms such as changes in strength, sensation, or bladder control. The pain is primarily localized to the low back, bilateral, no radicular components. The pain is described as sharp, throbbing and aching in character. The average pain intensity is 6/10. It is aggravated by sitting, standing, walking, rt. Rotation and lft. Rotation. It is typically relieved by Resting/lying down. This pain has minimally responded to conservative measures. She really enjoyed aqua therapy and is going to return in a couple of weeks. Injection History: 10/11/2013: Bilateral L4-5 and L5-V6pqihu joint injection: Alternate therapies: Therapy Comments Physical Therapy Postural Voodoo no Aqua Yes- back and knee, past loved it Restarts in 2 weeks. Traditional Land Yes- past for knee surgery Acupuncture TENS Chiropractic therapy Psychotherapy Other Medications associated with treatment of Pain Syndrome: peroxicam Diagnostic studies:See EMR for details. Lumbar x-ray 2013 Allergies Allergen Reactions ??? Levaquin (Levofloxacin) ROS: CONSTITUTIONAL: Patient does not report fevers, nausea, vomiting. NEURO/EYES: Patient does not report headaches, dizziness, or visual changes. HEME: Patient does not report any known coagulopathies. PULM/CARDIAC: Patient does not report shortness of breath or chest pain. GI/: Patient does not report bowel or bladder incontinence. Physical Examination: Vital signs: Blood pressure 139/91, pulse 95, temperature 36.7 ??C (98 ??F), temperature source Tympanic, resp. rate 16, height 165.1 cm (65), weight 113.399 kg (250 lb). GENERAL: Patient is an otherwise pleasant obese white female. Patient is alert and oriented x 3. Appropriate in conversation. NAD. The patient does appear her stated age of 43 y.o.. The pain syndromeis clinically relayed without embellishment. She rises from a seated position without difficulty. SKIN: WNL. Warm and dry. No lesions, apparent rashes, bruising or petechiae. No signs of infection in the lumbar region. EXTREMITIES: No clubbing, cyanosis, or edema. MUSCULOSKELETAL: ROM was wnl with flexion, extension and lateral rotation. Positive Facet loading maneuvers with extension of lumbar spine. Positive tenderness to palpation of lumbar paraspinous region. PULM: Non labored breathing. Assessment:Patient is a 43 y.o. year old female with a chronic pain syndrome and a primary complaint of bilateral low back pain. This pain has responded to conservative/interventional therapy. Associated diagnoses: Encounter Diagnoses Name Primary? Facet arthritis of lumbar region Yes ??? Low back pain Plan: Proceed with diagnostic and therapeutic facet joint injections at bilateral L4- L5 and L5-S1 Follow up: within 24 hrs by telephone to report results of diagnostic injection The patient plans to follow-up with Isauro Minaya in the department of Orthopedics and we will be available for further evaluation and/or injections as necessary. Procedure: The patient gave informed written consent to proceed with this procedure following a detailed discussion of the risks and benefits associated with lumbar facet joint injection. The patient was then placed in the prone position, the skin over the lumbosacral area was prepped with chlorhexadine, and the site was draped with sterile towels. Strict sterile technique was maintained throughout the procedure. A ty moment was performed with full staff present to identify the patient, verify the procedure being performed, and review allergies. Flouroscopy was used to identify the lumbar anatomy and align the facet joints. The skin and subcutaneous tissue over the bilateral L4-L5 and L5-S1 facet joints was anesthetized with 2% lidocaine. A 22 guage 5.0 inch spinal needle was inserted under fluoroscopic guidance using coaxial technique into each of the aforementioned facet joints. After negative aspiration, each joint was injected with 0.25 mls 0.5% Bupivacaine and 20 mg Depo-Medrol. 80 mg total. There were no paresthesias during needle placement and aspiration was negative at all times. The patient tolerated the procedure well, there were no apparent complications, and she was discharged in stable condition. Written and verbal discharge instructions were reviewed with the patient prior to discharge. @E@ * Selena Jc - 10/11/2013 4408 EDT [facility] Rooming Note Does patient have a Supervisor [employer]? yes Is patient NPO? (Solids since midnight & liquids for 4 hrs) na Blood Thinners: Is patient on Blood Thinners? no If yes, taking? If stopped, who authorized stopping? Related comments: Infections: Any recent infections, fever of illnesses? no If on antibiotics, is it 7-10 days past the date of completion of antibiotics? no : (for females of child-bearing age) Is there a chance current ? no Other: documented in this encounter Plan of Treatment Not on file documented as of this encounter Visit Diagnoses Diagnosis Facet arthritis of lumbar region- Primary Lumbosacral spondylosis without myelopathy Low back pain Lumbago documented in this encounter Administered Medications Inactive Administered Medications - up to 3 most recent administrations Medication Order MAR Action Action Date Dose Rate Site bupivacaine (PF) (MARCAINE) 0.5 % (5 mg/mL) injection 5 mg 5 mg (1 mL), epidural, NOW X1, 1 dose, On Fri10/11/13 at 1530, Routine Given by Other 10/11/2013 15:12 EDT 5 mg methylPREDNISolone ACETATE (DEPO-MEDROL) injection 80 mg 80 mg, intra-lesional, NOW X1, 1 dose, On Fri10/11/13 at 1530, Routine Given by Other 10/11/2013 15:12 EDT 80 mg documented in this encounter Care Teams Central Station Operator Relationship Specialty Start Date End Date Sera Gay FNP [address] [place] [address] PCP - General 09/02/13 10/31/22 documented as of this encounter
--- OUTSIDE RECORDS SUMMARY | 2023-12-18 00:17 | XMS_ITS | Encounter Summary ---
Author Organization [facility] Address [address] [place] [address] Care Team Providers Care Surfboard Designer Name Role Phone Victor HugoSera Tommy STEINER Primary Care Provider + Reason for Visit * Reason Onset Date Comments Discuss Surgery 02/12/2016 Discuss Surgery 02/28/2016 Encounter Details Date Type Department Care Team (Late st Contact Info) Description 02/12/2016 Telephone [facility] Urology - [address] [address] Rajesh Ibarra MD [address] [place] [phone] Discuss Surgery; Discuss Surgery Social History Tobacco Use Types [...] Functional Status Response Date of Assess ment Because of a physical, menta l, or emotional condition, does this person have difficulty doing errands alone such as visiting a doctor's office or shopping? No 02/09/2016 Cognitive Status Response Date of Assessm ent Because of a physical, menta l, or emotional condition, does this person have serious difficulty concentrating, remembering, or making decisions? No 02/09/2016 documented as of this encounter Miscellaneous Notes * Telephone Encounter - Noy Falcon - 03/08/2016 1306 EST Message was left for patient requesting she contact the office to discuss her surgery on 03/18/[address] Ibarra. * Telephone Encounter - Noy Falcon - 02/28/2016 1450 EDT Procedure confirmed with patient. Pt was instructed to check in 3rd floor registration at 11:00 for a procedure at 1:00 on 02/29/16. Pt was instructed to have no solid food or liquids containing fats, including milk after midnight. The day of, pt can have water or other clear liquids until four hours before scheduled time of procedure. * Telephone Encounter - Temi Neal - 02/28/2016 1144 EDT Pt calling as she has not gotten the call about surgery time and prep. Please try her cell as she will be traveling to visit her mother this afternoon. If unavailable at cell, please call mother's house. cell: [phone] Mom's house: [phone] * Telephone Encounter - Noy Falcon - 02/12/2016 1331 EDT Spoke with patient to confirm her procedure with Dr. Ibarra has been rescheduled to 02/29/16. 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
--- OUTSIDE RECORDS SUMMARY | 2023-12-18 00:17 | XMS_ITS | Encounter Summary ---
Author Organization [facility] Address [address] [place] [address] Care Team Providers Care Traveling Secretary Name Role Phone Unavailable Primary Care Provider Unavailabl e Encounter Details Date Type Department Care Team (Late st Contact Info) Description 08/23/[address] [facility] [address] [place] [address] Beverley Vickers MD [address] [place], [place] [id number] Social History Tobacco Use Types Packs/Day Years [...] Procedure Name Priority Date/Time Associated Diagnosis Comments CYTOPATHOLOGY Routine 08/23/2003 0:00 EDT documented in this encounter Results * CYTOPATHOLOGY (08/23/2003 0:00 EDT) Pathology Report: CYTOPATHOLOGY REPORT Reports generated via electronic interface contain original data; however they are lacking the format of the original report. Caution should be taken when reading/interpreti ng unformatted reports. Name: ? BLESSING ORTIZ ? Accession #: ? [id number] : ? 1970 (Age: 33) ??F ?Collect Date: ? 08/23/2003 Location: ? [facility] ? Receive Date: ? 08/26/2003 Provider: ?BEVERLEY VICKERS MD Copy to: ? Specimen/Source: ?ThinPrep Pap Test, Source Not Provided Last Menstrual Period: ? 07/25/03 Other: ? HPVA - HPV testing requested if ASC-US on the current ThinPrep Pap test. ? SPECIMEN ADEQUACY ? Satisfactory for Evaluation - transformation zone component present GENERAL CATEGORIZATION ? Negative for Intraepithelial Lesion or Malignancy ? Document reviewed and electronically signed by: ? KAIT Devries(ASCP) ? Report Date: ??08/30/2003 11:31 End of Report DEVON SESAY 08/23/2003 08/26/2003 Bever[facility]ickers [facility] DEVON SESAY [address] [place] [address] documented in this encounter Visit Diagnoses Not on filedocumented in this encounter
--- OUTSIDE RECORDS SUMMARY | 2023-12-18 00:17 | XMS_ITS | Encounter Summary ---
Author Organization [facility] Address [address] [place] [address] Care Team Providers Care Child Study Team Director Name Role Phone Unavailable Primary Care Provider Unavailabl e Encounter Details Date Type Department Care Team (Late st Contact Info) Description 05/12/2007 Results Only [facility] - [facility] conversion [address] [place] [address] Matilda Ta, AUCTION CLERK [address] [place] [address] Social History Tobacco Use Types Packs/Day Years [...] Priority Date/Time Associated Diagnosis Comments CYTOPATHOLOGY Routine 05/12/2007 0:00 EST documented in this encounter Results * CYTOPATHOLOGY (05/12/2007 0:00 EST) Pathology Report: CYTOPATHOLOGY REPORT Reports generated via electronic interface contain original data; however they are lacking the format of the original report. Caution should be taken when reading/interpreti ng unformatted reports. Name: ? BLESSING ORTIZ ? Accession #: ? [id number] : ? 1970 (Age: 36) ??F ?Collect Date: ? 05/12/2007 Location: ? [facility] ? Receive Date: ? 05/14/2007 Provider: ?MATILDA TA APRN Copy to: ? Specimen/Source: ?ThinPrep Pap Test, Source Not Provided, processed on [facility] ThinPrep Imaging System, with manual evaluation Last Menstrual Period: ? 04/23/07 Hormonal/Contracep tive Status: ? Tubal ligation: 2005 Treatment History: ? Miscellaneous treatment: Oophorectomy L ? SPECIMEN ADEQUACY ? Satisfactory for Evaluation - transformation zone component present - scant squamous epithelial component GENERAL CATEGORIZATION ? Negative for Intraepithelial Lesion or Malignancy ? Document reviewed and electronically signed by: ? GILBERT Alves(ASCP) ? Report Date: ??05/15/2007 11:05 End of Report DEVON SESAY 05/12/2007 05/14/2007 Matilda Ta APRN PATHOLOGY ORDERABLES DEVON SESAY [address] [place] [address] documented in this encounter Visit Diagnoses Not on filedocumented in this encounter
--- OUTSIDE RECORDS SUMMARY | 2023-12-18 00:17 | XMS_ITS | Encounter Summary ---
Author Organization [facility] Address [address] [place] [address] Care Team Providers Care Black Oxide Operator Name Role Phone Sera Gay Tommy STEINER Primary Care Provider + Reason for Visit * Reason Onset Date Comments Procedure 02/15/2016 11.3.16 Advice Only 02/15/2016 Encounter Details Date Type Department Care Team (Late st Contact Info) Description 02/15/2016 Telephone [facility] Urology - [address] [address] Rajesh Ibarra MD [address] [place] [phone] Procedure (11.3.16); Advice Only Social History Tobacco Use Types Packs/Day [...] Telephone Encounter - Steffanie Mckeon RN - 02/22/[address] Ibarra the patient will likely need multiple stone procedures and it is difficult to assess a timeframe when the procedures will conclude. Dr Ibarra also states that he is available to consult with the physician on timing the procedures if needed. Lucia From Dr Pan's office is aware. No further questions or concerns at this time. * Telephone Encounter - Steffanie Mckeon RN - 02/16/[address] Ed Pan is going to do an elective hysterectomy due to large ovarian cyst. It can be held off until March if needed per Lucia. Dr Pan would get the patient in sooner than March if Dr Ibarra is agreeable to this. Message sent to Dr Ibarra. * Telephone Encounter - Steffanie Mckeon RN - 02/15/2016 1630 EDT Attempt to call the patient OBGYN office. Their office is closed at this time. Will attempt to callback tomorrow for more detail. * Telephone Encounter - Steffanie Mckeon RN - 02/15/2016 1441 EDT Will consult with Dr Ibarra. * Telephone Encounter - Marilou Lara - 02/15/2016 1103 EDT Reason for Call: Procedure (02.28.16) and Advice Only Summary/Symptoms: Per Dr. Maxim Myers is going to be doing a hysterectomy on pt and is aware that pt is having a stone procedure on 02.[address] Ibarra and would like to know the time frame when he could schedule the hysterectomy for the pt. Please call when a moment. Marilou Lara 02/15/2016 11:04 documented in this encounter Plan of Treatment Not on file documented as of this encounter Visit Diagnoses Not on filedocumented in this encounter Care Teams Black Oxide Operator Relationship Specialty Start Date End Date Sera Gay FNP [address] [place] [address] PCP - General 09/02/13 10/31/22 documented as of this encounter
--- OUTSIDE RECORDS SUMMARY | 2023-12-18 00:17 | XMS_ITS | Encounter Summary ---
Author Organization [facility] Address [address] [place] [address] Care Team Providers Care Cyber Security Engineer Name Role Phone Victor Hugo Sera STEINER Primary Care Provider + Reason for Visit * Reason Onset Date Comments Appointment Related 03/26/2016 Post-OP Follow Up 03/26/2016 Encounter Details Date Type Department Care Team ([facility] st Contact Info) Description 03/26/2016 Telephone [facility] Urology - [address] [address] Rajesh Ibarra MD [address] [place] [phone] Appointment Related; Post-OP Follow Up Social History Tobacco Use Types Packs/Day Years [...] * Telephone Encounter - Noy Falcon - 03/26/2016 1605 EST Post op appointment has been rescheduled to 04/09/16 at [address] Ibarra. Pt was instructed to check in at 8 am for an x-ray. * Telephone Encounter - Maeve Redd - 03/26/2016 0823 EST Pt calling to reschedule 04/03 appt with scope states she can do 03/29, 04/08, 04/09, 04/16- and week after Krzysztof. Please call. documented in this encounter Plan of Treatment [...] documented as of this encounter Care Teams Cyber Security Engineer Relationship Specialty Start Date End Date Sera Gay FNP [address] [place] [address] PCP - General 09/02/13 10/31/22 documented as of this encounter
--- OUTSIDE RECORDS SUMMARY | 2023-12-18 00:17 | XMS_ITS | Encounter Summary ---
Author Organization [facility] Address [address] [place] [address] Care Team Providers Care District Sales Manager Name Role Phone Victor Hugo Sera ROGERSP Primary Care Provider + Reason for Referral * Consult, Test and Treat (Routine) - Closed Specialty Diagnoses / Procedures Referred By Claudio quinteros Referred To Contact Diagnoses Low back pain Isauro Minaya PA-C [address] [place] [phone] Referral ID Status Reason Start Date Expiration Date V isits Requested Visits Authorized [id number] Closed Specialty Services Required 09/10/2013 1 1 Question Answer Reason for Request: Low back pain/evaluate and treat Comments Aquatic PT twice/week for 8 weeks Isauro Minaya PA-C * Consult (Routine) - Specialty Report Received Specialty Diagnoses / Procedures Referred By Contanne quinteros Referred To Contact Pain Medicine Diagnoses Low back pain Isauro Minaya PA-C [address] [place] [phone] [facility] [address] [place] [address] Referral ID Status Reason Start Date Expiration Date Visits Requested Visits Authorized [id number] Specialty Report Received Specialty Services Required 09/10/2013 1 1 Question Answer Reason for Request: Low back pain Comments Recommend L4-L5/L5-S1 B/L facet injections Reason for Visit * Reason Comments Back Pain Encounter Details Date Type Department Care Team (Late st Contact Info) Description 09/10/2013 12:45 EDT Office Visit [facility] Sp[facility] - [facility] [address] [place] [address] Isauro Minaya PA-C [address] [place] [address] [place] [phone] Low back pain (Primary Dx) Social History Tobacco Use Types [...] - Inhaled Oxygen Concentration - - Weight 116.6 kg (257 lb) 09/10/2013 1248 EDT Height 165.1 cm (5' 5) 09/10/2013 1248 EDT Body Mass Index 42.77 09/10/2013 1248 EDT documented in this encounter Progress Notes * Isauro Minaya PA - 09/10/2013 1232 EDT Blessing Ortiz is being seen as a consultation from Dr. Gay. Chief Complaint Patient presents with ??? Back Pain The encounter diagnosis was Low back pain. HPI Ms. Ortiz is a 43 y.o. pleasant female who presents to the clinic today with 100% LBP, slightly worse on the left. The patient reports 15-year h/o intermittent LBP that has been worsening over the last 6 months. Her pain is present every day and fluctuates between 3/10 at its best and 10/10 at itsworst. She has tried aquatic PT, which was helpful. She has not tried CHIRO or injections. Sitting and lying down alleviate her symptoms. Standing and bending aggravate her symptoms. She rates her pain as 5/10. HPI Patient Active Problem List Diagnosis ??? Low back pain Past Medical History Diagnosis Date ??? Hypercholesteremia ??? Hypertension ??? IBS (irritable bowel syndrome) ??? Interstitial cystitis ??? Anxiety ??? Depression Past Surgical History Procedure Laterality Date ??? Tubal ligation ??? Pilonidal cyst excision ??? Knee arthroscopy ??? Ovarian cyst removal History Substance Use Topics ??? Smoking status: Former Smoker -- 1.00 packs/day for 5 years Quit date: 09/10/2008 ??? Smokeless tobacco: Not on file ??? Alcohol Use: No Family History Problem Relation Age of Onset ??? Cancer Mother ??? Diabetes Mother ??? Cancer Father Current Outpatient Prescriptions Medication Sig Dispense Refill ??? amitriptyline (ELAVIL) 25 mg tablet Take 25 mg by mouth daily. ??? clidinium-chlordiazepoxide (LIBRAX, WITH CLIDINIUM,) 5-2.5 mg per capsule Take 1 Cap by mouth 3times daily. ??? gabapentin (NEURONTIN) 400 mg capsule Take 400 mg by mouth 3 times daily. ??? METOPROLOL SUCCINATE ORAL Take by mouth daily. ??? piroxicam (FELDENE) 10 mg capsule Take 10 mg by mouth daily. No current facility-administered medications for this visit. Allergies Allergen Reactions ??? Levaquin (Levofloxacin) Review of Systems Constitutional: Positive for activity change. Negative for unexpected weight change. HENT: Negative for neck pain. Eyes: Negative for visual disturbance. Respiratory: Negative for chest tightness. Cardiovascular: Negative for chest pain. Gastrointestinal: Negative for constipation. Genitourinary: Negative for difficulty urinating. Musculoskeletal: Positive for back pain. Skin: Negative for rash. Neurological: Negative for numbness. Psychiatric/Behavioral: Negative for behavioral problems and agitation. Physical Exam Constitutional: She is oriented to person, place, and time. She appears well- developed and well-nourished. HENT: Head: Normocephalic and atraumatic. Eyes: EOM are normal. Neck: Neck supple. Cardiovascular: Normal rate. Pulmonary/Chest: Effort normal. Neurological: She is alert and oriented to person, place, and time. Skin: Skin is warm and dry. No rash noted. Psychiatric: She has a normal mood and affect. Her behavior is normal. Back Exam Comments: GAIT: Normal. HEEL & TOE WALKING: NEG. LESIONS, RASHES OR HAIR MARVEL: NEG. FROM: TENDERNESS ON PALPATION: NEG. STRENGTH: 5/5 REFLEXES: Patellar 2/4 B/L; Achilles absent B/L. BABINSKI: Down. CLONUS: NEG. DP: 2/2. SENSATION: Intact. SLR RIGHT: NEG. LEFT: NEG. HIP ROM: Full. ILANA'S: POSon left. Neurologic Exam Mental Status Oriented to person, place, and time. Cranial Nerves CN III, IV, Extraocular motions are normal. Today, 09/10/2013, I ordered plain radiographs and I independently reviewed the following: Plain radiographs (AP/Lat/Flex/Ex): 1. Five (5) non-rib bearing lumbar vertebrae 2. Grade I spondylolisthesis of L4 on L5 noted on Flex only 3. Facet arthropathy of the lower lumbar spine 4. Disc height reduction at L5-S1 conistent with degenerative disc disease 5. No fractures or pars defects noted Assessment 43 y.o. female with LBP most likely from degenerative disc and facet disease; sacroiliitis is also plaussible. She has agreed to the following plan. No orders of the defined types were placed in this encounter. Plan: 1. Order L4-L5/L5-S1 B/L facet injections 2. Aquatic PT twice/week X 8 weeks 3. Phone FU post injections 4. If no relief from facet injections, consider SI joint injections CC: Dr. Gay documented in this encounter Plan of Treatment Scheduled Referrals Name Type Priority Associated Diagnoses Order Schedule AMB CONS/FOLLOW UP PAIN INTERVENTIONAL Outpatient Referral Routine Low back pain Ordered: 09/10/2013 AMB CONS/FOLLOW UP PHYSICAL THERAPY Outpatient Referral Routine Low back pain Ordered: 09/10/2013 documented as of this encounter Visit Diagnoses Diagnosis Low back pain- Primary Lumbago documented in this encounter Historical Medications * This list may reflect changes made after this encounter. Medication Sig Dispensed Refills Start Date End Date METOPROLOL SUCCINATE ORAL Take 50 mg by mouth 2 times daily. clidinium-chlordiazepoxid e (LIBRAX, WITH CLIDINIUM,) 5-2.5 mg per capsule Take 1 Cap by mouth 3 times daily. gabapentin (NEURONTIN) 400 mg capsule Take 1 Capsule by mouth 3 times daily. piroxicam (FELDENE) 10 mg capsule Take 10 Capsules by mouth daily. amitriptyline (ELAVIL) 25 mg tablet Take 1 Tablet by mouth daily. added in this encounter Care Teams District Sales Manager Relationship Specialty Start Date End Date Sera Gay FNP [address] [place] [address] PCP - General 09/02/13 10/31/22 documented as of this encounter
--- OUTSIDE RECORDS SUMMARY | 2023-12-18 00:17 | XMS_ITS | Encounter Summary ---
Author Organization [facility] Address [address] [place] [address] Care Team Providers Care Sightseeing Guide Name Role Phone Victor HugoSera Tommy STEINER Primary Care Provider + Encounter Details Date Type Department Care Team (Late st Contact Info) Description 02/09/2016 Pre-Procedure Orders Encounter [facility] - [facility] [address] [place], [place] [phone] Rajesh Ibarra MD [address] [place] [phone] Social History Tobacco Use Types Packs/Day [...] No 02/09/2016 documented as of this encounter Plan of [...] documented as of this encounter Care Teams Sightseeing Guide Relationship Specialty Start Date End Date Sera Gay FNP [address] [place] [address] PCP - General 09/02/13 10/31/22 documented as of this encounter
--- OUTSIDE RECORDS SUMMARY | 2023-12-18 00:17 | XMS_ITS | Encounter Summary ---
Author Organization [facility] Address [address] [place] [address] Care Team Providers Care Conical Mixer Name Role Phone Sera Gay Tommy STEINER Primary Care Provider + Reason for Visit * Reason Comments Cystoscopy Stent Removal * Follow Up (Other (Specify in Question)) - Closed Specialty Diagnoses / Procedures Referred By Claudio quinteros Referred To Contact Urology Diagnoses Calculus of kidney Nephrolithiasis Roel Ahumada MD [address] [place] [phone] [place] [address] Urology [address] [place] [address] Referral ID Status Reason Start Date Expiration Date V isits Requested Visits Authorized [id number] Closed Specialty Services Required 03/18/2016 1 1 Encounter Details Date Type Department Care Team (Latest Contact Info) Description 04/09/2016 9:15 EST Post-op Visit [facility] - [facility] [address] [place] [address] Rajesh Ibarra MD [address] [place] [phone] Nephrolithiasis (Primary Dx) Discharge Disposition: Auto [...] No 04/09/2016 documented as of this encounter Discharge Disposition Disposition Code Departure Means Destination Auto Discharge documented in this encounter Progress Notes * Rajesh Ibarra - 04/09/2016 0915 EST This is a 45-year-old female who underwent a left percutaneous nephrolithotomy with a right prone ureteroscopy. She had a second look bilateral ureteroscopy to treat the remainder of the stone burden, which proved to be 70% calcium oxalate monohydrate and 30% calcium phosphate apatite. She has beenhaving concerns over urinary tract infections with the stent in place, but has not had any fevers or chills. She recently completed a course of Cipro. I reviewed her postoperative KUB and the official report is pending, but I do not see any significant residual fragments. We then proceeded to remove her stents. PROCEDURE: After obtaining informed consent, she was taken to the exam room, placed in the supine position. She was prepped and draped in the standard sterile fashion. The cystoscope was inserted into the bladder. The urine was slightly cloudy, but did not appear concerning. We were able to grasp both stents with a flexible grasper and remove them in their entirety. She tolerated the procedure well. She will be given Cipro postprocedure. I will see her back in 6 weeks with a 24-hour urine evaluation. She will call for any concerns prior. documented in this encounter Plan of Treatment [...] documented as of this encounter Care Teams Conical Mixer Relationship Specialty Start Date End Date Sera Gay FNP [address] [place] [address] PCP - General 09/02/13 10/31/22 documented as of this encounter
--- OUTSIDE RECORDS SUMMARY | 2023-12-18 00:17 | XMS_ITS | Encounter Summary ---
Author Organization [facility] Address [address] [place] [address] Care Team Providers Care Oracle Sql Developer Name Role Phone Sera Gay JATIN Primary Care Provider + Encounter Details Date Type Department Care Team (Late st Contact Info) Description 07/12/2016 Results Only [facility] [phone] Rahat Mabry MD [address] [place] [address] [address] [place], [place] [phone] Social History Tobacco Use Types Packs/Day Years [...] Date/Time Associated Diagnosis Comments SURGICAL PATHOLOGY Routine 07/12/2016 9:08 EDT documented in this encounter Results * SURGICAL PATHOLOGY (07/12/2016 9:08 EDT) Pathology Report: SURGICAL PATHOLOGY REPORT Reports generated via electronic interface contain original data; however they are lacking the format of the original report. Caution should be taken when reading/interpret ing unformatted reports. Name: ? WILLOW BLESSING Jerrell ? Accession #: ? [id number] ? : ? 1970 (Age: 45) ??F ? Collect Date: ? 07/12/2016 ? Location: ? [facility] ? Receive Date: ? 07/15/2016 ? Provider: RAHAT MABRY MD Copy to: ? Final Pathologic Diagnosis: UTERUS, CERVIX, AND RIGHT FALLOPIAN TUBE, HYSTERECTOMY AND RIGHT SALPINGECTOMY: - ??Cervix: ? - Nabothian cysts. - Endometrium: ? - Atrophic endometrium with pseudo-decidualiz ed stroma, suggestive of progesterone effect. - Myometrium: ? - Superficial adenomyosis. - Leiomyoma, intramural. - Uterine serosa: ? - No significant pathologic features. - Fallopian tube, right: ? - Focally cystic Walthard nests. Document reviewed and electronically signed by: Joi Kapadia MD Report ??Date: 07/17/2016 16:00 By the signature above, the attending physician certifies that he/she has personally conducted a gross and/or microscopic examination of the described specimens and rendered or confirmed the above diagnosis. Specimen(s) Received: Uterus, cervix, R tube Clinical History: R ovarian cyst; pelvic pain Gross Description: ? Received in formalin labelled with proper patient identification (initials M, L) and uterus, cervix, right tube is an intact uterus and cervix (112 g, 8.7 cm cervix to fundus x 5.6 cm cornu to cornu x 4.1 cm anterior to posterior) with detached right fimbriated fallopian tube (3.6 cm in length x 0.5 cm in diameter). The left fallopian tube and bilateral ovaries are not present. ? The uterine serosa is bai-pennington and smooth. The endometrium is bai-pink and focally hemorrhagic and has a thickness of 0.1 cm. Within the uterine cavity is an intact white T-shaped intrauterine device measuring 3.0 x 3.0 x 0.3 cm with attached wires at the distal end measuring 1.5 cm. No serial number or markings are identified. The area surrounding the implantation is unremarkable. The myometrium is bai-pink and ranges from 1.9 cm to 2.1 cm in thickness. Within the myometrium there is a single well circumscribed nodule (0.5 cm in greatest dimension) which has a bai-white whorled cut surface without hemorrhage or necrosis. The ectocervix is bai-pink with no identifiable lesions, and the endocervix is bai-pennington, furrowed with mucus. The right fallopian tube has bai-purple and smooth serosa and sectioning discloses a pinpoint lumen throughout. ? Applications Administrator sections are submitted as follows: BLOCK GUERRERO 1- ??anterior cervix 2- ??anterior lower uterine segment 3- ??anterior endomyometrium including leiomyoma 4- ??anterior endomyometrium 5- ??posterior cervix 6- ??posterior lower uterine segment 7-8- ??posterior endomyometrium 9- ??fimbriated end, bisected 10- ??factory representative fallopian tube Dr. 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
--- OUTSIDE RECORDS SUMMARY | 2023-12-18 00:17 | XMS_ITS | Encounter Summary ---
Author Organization [facility] Address [address] [place] [address] Care Team Providers Care Project Development Coordinator Name Role Phone Sera Gay Primary Care Provider + Reason for Visit * Reason Comments New Patient Visit Bilateral Kidney sto olga * Consult (Routine) - Closed Specialty Diagnoses / Procedures Referred By Claudio quinteros Referred To Contact Urology Diagnoses Renal calculus, bilateral Sera Gay FNP [address] [place] [address] [place] [address] [address] [place] [address] Referral ID Status Reason Start Date Expiration Date Visits Re quested Visits Authorized [id number] Closed 1 1 Encounter Details Date Type Department Care Team (Latest Contact Info) Description 02/09/2016 13:00 EDT Office Visit [facility] - [facility] [place] [address], [place] [id number] Rajesh Ibarra MD [address] [place] [id number] Nephrolithiasis (Primary Dx) Social History Tobacco Use [...] No 02/09/2016 documented as of this encounter Patient Instructions * Patient Instructions* Noy Falcon - 02/09/2016 13:00 EDT Blessing Ortiz is scheduled for a pre-op history and physical with Teresa BAILEY on 02/23/16 at 3:00. - You will receive a pre-anesthesia phone call within one week of your surgery date. - Our office will contact you 1-2 days prior to surgery with your surgical check in time. - Have no solid food or liquids containing fats, including milk, after midnight before your procedure. - On the day of your procedure, you should have only water or other clear liquids until 4 hours before the scheduled time of your procedure. Clear liquids include water, clear fruit juice (apple or cranberry) carbonated beverages, Jell-O, and black or sweetened coffee and tea. documented in this encounter Progress Notes * Rajesh Ibarra - 02/09/2016 1300 EDT REQUESTING PHYSICIAN: Sera Gay REASON FOR CONSULTATION: Bilateral nephrolithiasis. HISTORY OF PRESENT ILLNESS: This is a 45-year-old female with multiple medical problems including ahistory of nephrolithiasis. She has required interventions, she reports, on 3 separate occasions. It sounds like she has had both shockwave lithotripsy as well as ureteroscopic interventions. She hasbeen having recurrent bilateral flank discomfort, which sounds worse on the left side. She also has bothersome urinary symptoms with a diagnosis of interstitial cystitis. Her pain is worse on the left than on the right, and she has had no fevers, chills, nausea or vomiting. Due to her recurrent pain, she underwent CT scan imaging, which I personally reviewed with her and her . On review of the imaging, the left kidney has a significant stone burden with 2 fairly large oblongstones in the renal pelvis encroaching on the UPJ. The total stone burden is just over 2 cm. The right kidney has 1.5 cm or so stone in the lower pole. These are dense appearing stones. There is no significant hydronephrosis. We talked about kidney stones and her symptoms. We talked about different options and ultimately she was very focused on having her stones removed. REVIEW OF SYSTEMS: A comprehensive review was performed. Pertinent positives as per the HPI. These are negative. MEDICAL HISTORY: Includes insomnia, interstitial cystitis, HPV, type 2 diabetes, hyperlipidemia, depression, hypertension, back pain, nephrolithiasis, endometriosis. She has allergies to LEVAQUIN. MEDICATIONS: Include amitriptyline, Librax, Neurontin, metoprolol and Feldene. In addition, she is on ProAir, Flovent, Protonix, piroxicam. She is a former smoker, 5 pack years. Denies alcohol or illicit drug use. She denies a family history of nephrolithiasis. On physical exam, she is alert and oriented x3, comfortable appearing, not in acute distress. Head is normocephalic. Eyes are anicteric. Neck is supple without adenopathy, normal respiratory effort. No external skin lesions. Abdomen is overweight, soft, nontender. No costovertebral angle tendernessbilaterally. Lower extremities are soft, no calf tenderness or edema. We had a long discussion regarding treatment recommendations. We did talk with observation, although again she is very focused on having her stones removed. I did tell her that her pain may not be secondary to her kidney stone disease, but I have recommended removal due to the large size, especially on the left side with proximity and the likelihood of intermittent obstruction. We talked about shockwave lithotripsy, which would not be indicated in either kidney due to the stone burden and location. We talked about staged flexible ureteroscopy versus percutaneous nephrolithotomy, particularly on the left side. Ultimately, due to the stone burden on the left side over 2 cm, I think her best approach on that side would be a percutaneous nephrolithotomy. I discussed the procedure including the risks and benefits. We talked about the risk of injury to adjacent organs, bleeding and infection.We will check a urine culture today. She understands that she will need a stent placed, which she is familiar with and has had significant discomfort with. She will need an overnight stay with a 50% chance of a nephrostomy tube. We also discussed that if the procedure went according to plan and wasnot taking too long and time committing, we can begin addressing the right side with a prone ureteroscopic approach. This would facilitate treatment of the 2nd side, which can be done ureteroscopically. We will schedule this accordingly. documented in this encounter Plan of Treatment Not on file documented as of this encounter Visit Diagnoses Diagnosis Nephrolithiasis- Primary Calculus of kidney documented in this encounter Care Teams Project Development Coordinator Relationship Specialty Start Date End Date Sera Gay FNP [address] [place] [address] PCP - General 09/02/13 10/31/22 documented as of this encounter
--- OUTSIDE RECORDS SUMMARY | 2023-12-18 00:17 | XMS_ITS | Encounter Summary ---
Author Organization [facility] Address [address] [place] [address] Care Team Providers Care Athletic Team Physician Name Role Phone Sera Gay JATIN Primary Care Provider + Reason for Referral * Radiology Services (Other (Specify in Question)) - Closed Specialty Diagnoses / Procedures Referred By Claudio quinteros Referred To Contact Diagnoses Calculus of kidney Procedures ABDOMEN AP 1 VIEW Gale Chaidez PA-C [address] [facility], [address] [place] [address] Referral ID Status Reason Start Date Expiration Date Visits Re quested Visits Authorized [id number] Closed 03/19/2016 1 1 * Follow Up (Other (Specify in Question)) - Closed Specialty Diagnoses / Procedures Referred By Claudio quinteros Referred To Contact Urology Diagnoses Calculus of kidney Nephrolithiasis Roel Ahumada MD [address] [place] [phone] [place] [address] Urology [address] [place] [address] Referral ID Status Reason Start Date Expiration Date [facility]its Authorized [id number] Closed Specialty Services Required 03/18/2016 1 1 Question Answer Reason for Request: s/p ureteroscopy with Dr. Ibarra. cysto and stent removal Scheduling Comments (optional ? describe specific scheduling needs if applicable): 1 week Expected Discharge Date (Inpatient Only): 03/18/2016 * (Routine) - Closed Specialty Diagnoses / Procedures Referred By Claudio quinteros Referred To Contact Roel Ahumada MD [address] [place] [address] Referral ID Status Reason Start Date Expiration Date V isits Requested Visits Authorized [id number] Closed Specialty Services Required 03/18/2016 1 1 Comments Follow up in about 1 week for cysto and stent removal in the urology clinic with Dr. Ibarra. The office will call with a date and time. ID clinic number is [phone] if you need it. Please continue your antibiotics. Encounter Details Date Type Department Care Team (Latest Contact Info) Description 03/18/2016 10:51 EST - 03/18/2016 17:10 EST Hospital Encounter [facility] Perioperative Services- [address] [address] Rajesh Ibarra MD [address] [place] [id number] Calculus of kidney (Primary Dx); Nephrolithiasis Discharge Disposition: Home or Self Care Social [...] Sign Reading Time Taken Comments Blood Pressure 126/83 03/18/2016 1645 EST Pulse - - Temperature 37 ??C (98.6 ??F) 03/18/2016 1600 EST Respiratory Rate 17 03/18/2016 1645 EST Oxygen Saturation 100% 03/18/2016 1645 EST Inhaled Oxygen Concentration - - Weight 106.6 kg (235 lb) 03/13/2016 0949 EST Height 165.1 cm (5' 5) 03/13/2016 0949 EST Body Mass Index 39.11 03/13/2016 0949 EST documented in this encounter Functional Status [...] No 02/29/2016 documented as of this encounter Discharge Diagnoses Diagnosis N20.0 Calculus of kidney-N20.0[ICD-10-CM] Z79.899 [facility] (current[facility] drug therapy-Z79.899[ICD-10-CM] I10 Essential (primary) hypertension-I10[ICD-10-CM] Z87.891 Personal history of nicotine dependence-Z87.891[ICD-10-CM] E78.00 Pure hypercholesterolemia, unspecified-E78.00[ICD-10-CM] K21.9 Gastro-esophageal reflux disease without esophagitis-K21.9[ICD-10-CM] documented in this encounter Medications at Time [...] hours as needed for Pain. 03/06/2016 06/14/2020 ciprofloxacin HCl (CIPRO) 750 mg tablet Take 1 Tab by mouth every 12 hours for 14 days. 28 Tab 03/18/2016 04/01/2016 diclofenac (VOLTAREN) 75 mg EC tablet Take 1 Tab by mouth 2 times daily for 7 days. 14 Tab 03/18/2016 03/25/2016 docusate sodium (COLACE) 100 mg capsule Take 1 Cap by mouth 2 times daily. 03/06/2016 03/10/2018 phenazopyridine (PYRIDIUM) 200 mg tablet Take 1 Tab by mouth 3 times daily as needed for Pain. 12 Tab 03/18/2016 03/12/2018 tamsulosin (FLOMAX) 0.4 mg capsule Take 1 Cap by mouth daily. 10 Cap 03/18/2016 03/10/2018 documented as of this encounter Ordered Prescriptions Prescription Sig Dispensed Refills Start Date End Da te phenazopyridine (PYRIDIUM) 200 mg tablet Take 1 Tab by mouth 3 times daily as needed for Pain. 12 Tab 03/18/2016 03/12/2018 tamsulosin (FLOMAX) 0.4 mg capsule Take 1 Cap by mouth daily. 10 Cap 03/18/2016 03/10/2018 diclofenac (VOLTAREN) 75 mg EC tablet Take 1 Tab by mouth 2 times daily for 7 days. 14 Tab 03/18/2016 03/25/2016 ciprofloxacin HCl (CIPRO) 750 mg tablet Take 1 Tab by mouth every 12 hours for 14 days. 28 Tab 03/18/2016 04/01/2016 documented in this encounter Discharge Disposition Disposition Code Departure Means Destination Home or Self Care documented in this encounter Progress Notes * Margret Sorensen RN - 03/13/2016 1008 EST Blessing Ortiz has been instructed as follows regarding medication administration for the day of thescheduled procedure. Date of Surgery: 03-18-16 Instructions for Taking Medications Day of Surgery Medication Sig Last Dose Hold DOS Take DOS acetaminophen (TYLENOL) 325 mg tablet Take 2 Tabs by mouth every 4 hours as needed for Pain. Yes amitriptyline (ELAVIL) 25 mg tablet Take 25 mg by mouth daily. Yes ciprofloxacin HCl (CIPRO) 750 mg tablet Take 1 Tab by mouth every 12 hours for 21 days. Yes clidinium-chlordiazepoxide (LIBRAX, WITH CLIDINIUM,) 5-2.5 mg per capsule Take 1 Cap by mouth 3 times daily. Yes docusate sodium (COLACE) 100 mg capsule Take 1 Cap by mouth 2 times daily. Yes gabapentin (NEURONTIN) 400 mg capsule Take 400 mg by mouth 3 times daily. Yes HYDROmorphone (DILAUDID) 2 mg tablet Take 1 Tab by mouth every 4 hours as needed for Pain. Daily Max: 12 mg Yes METOPROLOL SUCCINATE ORAL Take 25 mg by mouth daily. Yes pantoprazole (PROTONIX) 40 mg tablet Take 40 mg by mouth daily. Yes piroxicam (FELDENE) 10 mg capsule Take 10 mg by mouth daily. Hold one week prior to surgery. x documented in this encounter H&P Notes * Roel Ahumada MD - 03/18/2016 1146 EST The preoperative history and physical which was performed within 30 days of this procedure has been reviewed and the clinically appropriate elements of the physical examination have been repeated. There are no changes to the documented history and physical or if so such changes are documented below Roel Ahumada MD 03/18/2016 11:46 Source Note - DEVELOPMENT DISABILITY SPECIALIST, NORMA 2 - 03/13/2016 13:48 EST documented in this encounter OR Notes * OR Surgeon - Rajesh Ibarra - 03/18/2016 1710 EST SERVICE DATE: 03/18/2016 ? PREOPERATIVE DIAGNOSIS: Bilateral Kidney Stones ? POSTOPERATIVE DIAGNOSIS: Same ? PROCEDURE: Bilateral ureteroscopy, left basket stone extraction, left ureteral stent placement, right laser lithotripsy, right ureteral stent placement ? SURGEON: Rajesh Ibarra MD ? MILK RECEIVER TANK TRUCK: Roel Ahumada MD ? COMPLICATIONS: None. ? ESTIMATED BLOOD LOSS: <10cc ? ANESTHESIA: General. ? SPECIMENS: Kidney stone ? RETAINED MATERIAL: Bilateral 6 x 24 JJ ureteral stent ? INDICATIONS: Blessing is a 45 yo woman with a history of kidney stones who recently underwent a left percutaneous nephrolithotomy with percutaneous renal access and right prone ureteroscopy with laser lithotripsy and stent placement. Following the case, she had a CT scan that demonstrated residual stone fragments in both kidneys, right stone burden>left. She presents today for second procedure, for management of her residual stone burden. ? NARRATIVE: Informed consent was obtained, and the patient was brought to the operating room. Appropriate antibiotics were administered. WHO 1 checklist was completed. Patient received general anesthetic. She was placed in dorsal lithotomy position, and the external genitalia were prepped and drapedin standard sterile fashion. WHO 2 checklist was completed. A 22.5-Korean rigid cystoscope with a 30-degree lens was passed into the urethra. We saw both ureteral stents. We used the flexible grasperto grasp the left ureteral stent. We pulled out the distal end to the meatus. We placed a .035 sensor wire through the stent and up the left ureter. We confirmed that it was in appropriate position with xray. We removed the cystoscope and left the wire in place. Then we passed the flexible digital ureteroscope into her urethra and found the left UO. We passed the flexible ureteroscope up the leftureter, alongside the wire. We encountered 2 kidney stones at the left UPJ. We were able to remove the stones with a 0-tip nitinol basket. We removed one of the stones to send for analysis. We emptied the second stone in to her bladder. We then passed the ureteroscope in to her left kidney on the third pass. We inspected the entirety of the left kidney and found no additional stones. We removed the flexible ureteroscope. We placed a 6x24 JJ left ureteral stent under direct vision using the cystoscope. The stent was confirmed to be in appropriate position using xray. Next, we turned our attention to the right side. The rigid cystoscope was passed back into her urethra. We used the flexible grasper to grasp the right ureteral stent. We pulled out the distal end to the meatus. We placed a .035 sensor wire through the stent and up the right ureter. We confirmed that it was in appropriate position with xray. We removed the cystoscope and left the wire in place. We passed the flexible ureteroscope into her bladder and found her right UO. We were unable to navigate into the right UO, however, because it was tight. We then switched to the semi-rigid ureteroscope. We passed the semi-rigid ureteroscope up her right ureter. We passed the semi-rigid scope all the way up her right ureter andthere was one stone within her ureter. As we removed the semi-rigid, we used the 0-tip nitinol basket to grasp the stone on the way out of the ureter. We emptied the stone within her bladder. Then, we placed a .038 bentson wire through the semi-rigid scope and passed the second wire up her right ureter. It was confirmed in appropriate position on xray. We removed the scope and left both wires in place. We placed a 12/14 dilator/access sheath over the sensor wire. It was confirmed to be in the proximal ureter with xray. We removed the 12Fr dilator and the sensor wire, and we left the bentson as a safety wire. We navigated the flexible ureteroscope into the ureteral access sheath and up in tothe right kidney. We encountered stone in the upper, mid, and lower poles. We passed a 200 micron laser fiber in to the right kidney. We used settings of 0.3 and 40 and 0.4 and 70 in order to completely dust the remaining stone fragments. Only dust remained within the right kidney. There were no sig nificant fragments that we encountered after inspecting the right kidney again. We did not basket any stone out of her right side, because it was all dust. We removed the flexible ureteroscope and the access sheath and inspected the right ureter on the way out. We did not encounter any stone fragments and there was no injury noted to her right ureter. We placed a 6x24 JJ right ureteral stent over the bentson wire. We used a pusher to position. It was confirmed in appropriate position with xray.The wire was removed. We emptied out her bladder. Upon completion of the procedure, WHO 3 checklistwas performed. The patient tolerated the procedure well without immediate complication and was brought to the recovery room in good condition. Attending attestation: I was present during the entire procedure. I saw and examined the patient 03/19/2016. I agree with the findings and plan of care documented in the resident's/fellow's note. Rajesh Ibarra MD 03/19/2016 17:08 documented in this encounter Miscellaneous Notes * Anesthesia Post-Eval - Danny Omalley MD - 03/18/2016 1638 EST Post Anesthesia Evaluation Note Date of Service: 03/18/2016 Blessing Ortiz, a 45 y.o. year old female has received General Anesthesia today. She has been evaluated, assessed and discharged from anesthesia care with stable cardiorespiratory function and alert mental status. The last set of recorded vital signs and pain rating were reviewed: Temp: 37 ??C (98.6 ??F), Heart Rate: 89 BPM, BP: 128/78, Resp: 16, SpO2: 96 %,Numeric Pain Level (Scale 1-10): 4 Blessing Ortiz participated in this evaluation unless otherwise noted. Her pain, nausea and vomitinghave been managed and her body temperature and fluid balance have been restored. Additional monitoring and assessment needs have been addressed. If present, any postoperative events are documented below. Danny Omalley MD 03/18/2016 16:39 * Brief Op Note - Roel Ahumada MD - 03/18/2016 1437 EST Brief Post-Op Note Date of Surgery: 03/18/2016 Surgeon: Rajesh Ibarra MD Assistants: Roel Ahumada MD Pre-Op Diagnosis: Bilateral kidney stones Post-Op Diagnosis: Same Procedure(s): Bilateral ureteroscopy, left basket stone extraction, left ureteral stent exchange, right laser lithotripsy, right ureteral stent exhange Findings: Placed sensor wire left ureter. Left ureter with flexible ureteroscope. Stone at left UPJ, removed with basket. Inspected the left kidney - no additional stone. Placed stent under direct vision. Unable to navigate directly up the right ureter with flexible scope. Used semi-rigid ureteroscope to navigate up right ureter. Removed one stone with the basket from right ureter. Placed second wire through the semi-rigid up right ureter. Then placed 12/14 access sheath over sensor wire. Laserwith settings of 0.3 and 40 and 0.4 and 70. Completely dusted the stones in the right kidney. Stentplaced. Anesthesia Type: General Estimated Blood Loss: Unless otherwise noted, there was no blood loss, specimens removed, cultures obtained, or drains retained. The estimated blood loss was <10cc Fluids: Blessing Ortiz received 1200cc of fluid replacement. Urine Output: Not recorded Specimens/Cultures: Kidney stone Drains/Packs: Bilateral 6x24 JJ stent Complications: None Disposition and Condition: Blessing Ortiz was sent to PACU in Good condition. Roel Ahumada MD 03/18/2016 14:37 documented in this encounter Plan of Treatment Scheduled Referrals Name Type Priority Associated Diagnoses Order Schedule PROVIDER FOLLOW-UP INSTRUCTIONS Outpatient Referral Routine Ordered: 03/18/2016 AMB CONS/FOLLOW UP UROLOGY Outpatient Referral Routine Calculus of kidney Nephrolithiasis Ordered: 03/18/2016 documented as of this encounter Procedures Procedure Name Priority Date/Time Associated Diagnosis Comments ABDOMEN AP 1 VIEW Routine 04/09/2016 9:0 6 EST Calculus of kidney IMPLANT RECORD - SCANNED 03/29/2016 6:35 EST IMPLANT RECORD - SCANNED 03/22/2016 14:34 EST ECG REPORT - SCANNED 03/22/2016 14:34 EST RETROGRADE UROGRAM Routine 03/18/2016 14 :41 EST TEST, URINE STAT 03/18/2016 11:15 EST documented in this encounter Results * ABDOMEN AP 1 VIEW (04/09/2016 9:06 EST) Anatomical Region Laterality Modality Other 04/09/2016 9:06 EST 04/09/2016 11:09 EST Narrative 04/09/2016 11:09 EST ABDOMEN AP 1 VIEW ??04/09/2016 9:06 AM Signs and Symptoms/Comments: ?? N20.0-Calculus of kzuyva-ORT-84; S/P bilateral ureteroscopy Comparison: March 18, 2016 retrograde urogram, March 01, 2016 CT renal colic. FINDINGS: AP/KUB views of the abdomen (2 images) Bilateral ureteral stents are relatively unchanged position, in comparison to March 01, 2016 CT. There is a small, residual stone at the lower pole, right kidney, which may represent a persistent stone, similar location on previous CT, or fragment following recent procedures. No stones are definitively identified along the ureteral course. IUD is in expected location, left pelvis. Incidental note of multiple tiny pelvic phleboliths. Moderate stool burden throughout the large bowel. Impression: 1. Small renal calculus, lower pole right kidney. 2. Bilateral ureteral stents, position stable. I have personally reviewed the images and the above interpretation and agree with the findings. Procedure Note Osman Lund MD - 04/09/2016 ABDOMEN AP 1 VIEW 04/09/2016 9:06 AM Signs and Symptoms/Comments: N20.0-Calculus of kwkove-GOA-03; S/P bilateral ureteroscopy Comparison: March 18, 2016 retrograde urogram, March 01, 2016 CT renal colic. FINDINGS: AP/KUB views of the abdomen (2 images) Bilateral ureteral stents are relatively unchanged position, in comparison to March 01, 2016 CT. There is a small, residual stone at the lower pole, right kidney, which may represent a persistent stone, similar location on previous CT, or fragment following recent procedures. No stones are definitively identified along the ureteral course. IUD is in expected location, left pelvis. Incidental note of multiple tiny pelvic phleboliths. Moderate stool burden throughout the large bowel. Impression: 1. Small renal calculus, lower pole right kidney. 2. Bilateral ureteral stents, position stable. I have personally reviewed the images and the above interpretation and agree with the findings. Gale Chaidez PA-C Jesi DIAGNOSTIC IMAGING ORDERABLES * IMPLANT RECORD - SCANNED (03/29/2016 6:35 EST) 03/29/2016 6:35 EST Scan 2 Spray Painter PROCEDURE/MINOR ELSA GICAL ORDERABLES * ECG REPORT - SCANNED (03/22/2016 14:34 EST) 03/22/2016 14:3 4 EST Scan 2 Spray Painter PROCEDURE/MINOR ELSA GICAL ORDERABLES * IMPLANT RECORD - SCANNED (03/22/2016 14:34 EST) 03/22/2016 14:3 4 EST Scan 2 Spray Painter PROCEDURE/MINOR ELSA GICAL ORDERABLES * RETROGRADE UROGRAM (03/18/2016 14:41 EST) Anatomical Region Laterality Modality Other 03/18/2016 14:4 1 EST Narrative 03/18/2016 14:41 EST Non Reportable Exam Procedure Note PERSONAL CARE HOME ADMINISTRATOR, IMAGING - 03/18/2016 Non Reportable Exam Rajesh Ibarra MD IMG FLUOROSCO PY ORDERABLES * TEST, URINE (03/18/2016 11:15 EST) Result- Test, Ur Neg Neg 03/18/2016 11:39 EST [facility] Comment: NOTE: False negative results may occur in women who are beyond 5-8 weeks gestation. Diagnosis of should be based on a correlation of test results with typical clinical signs and symptoms. Urine specimen (specimen) URINE / Unknown 03/18/2016 11:15 EST 03/18/2016 11:28 EST Cuong Cornell MD URINALYSIS ORDERABLE S [facility] [address] [place] [address] documented in this encounter Visit Diagnoses Diagnosis Calculus of kidney- Primary Nephrolithiasis Calculus of kidney documented in this encounter Administered Medications Inactive Administered Medications - up to 3 most recent administrations Medication Order MAR Action Action Date Dose Rate Site acetaminophen (TYLENOL) tablet 1,000 mg 1,000 mg, oral, ONCE PRN, 1 dose, Starting on Fri03/18/16 at 1421, Until Fri03/18/16 at 1927, Pain, Fever, Fever especially in neuro patients, Routine, Recovery (only) atropine 0.1 mg/mL syringe 0.5 mg 0.5 mg, intravenous, PRN, Starting on Fri03/18/16 at 1421, Until Fri03/18/16 at 1927, Symptomatic HR < 50, Routine, Recovery (only) ciprofloxacin (CIPRO) IVPB 400 mg 400 mg, intravenous, Administer over 60 Minutes, PRE-OP ONCE, 1 dose, On Fri03/18/16 at 1145, Controlled antibiotic: has ID approved? No: Pre-operative surgical prophylaxis, Routine, Pre-Op DOS Rx Approved Given 03/18/2016 11:52 EST 400 mg diphenhydrAMINE (BENADRYL) injection 6.25 mg 6.25 mg, intravenous, PRN, 2 doses, Starting on Fri03/18/16 at 1421, Until Fri03/18/16 at 1927, nausea, Routine, Recovery (only) fentaNYL citrate (PF) 50 mcg/mL injection 25-100 mcg 25-100 mcg, intravenous, EVERY 5 MIN PRN, Starting on Fri03/18/16 at 1421, Until Fri03/18/16 at 1927, Pain, Routine, Recovery (only) lactated ringers (LR) infusion 30 mL/hr, intravenous, CONTINUOUS, Starting on Fri03/18/16 at 1145, Until Fri03/18/16 at 1927, Routine, Pre-Op DOS Rx Approved New Bag 03/18/2016 12:06 EST 30 mL/hr 30 mL/hr lactated ringers (LR) infusion at 75 mL/hr, intravenous, CONTINUOUS, Starting on Fri03/18/16 at 1445, Until Fri03/18/16 at 1927, Routine, Recovery (only) meropenem (MERREM) 1 g in sodium chloride (NS MBP) 0.9 % 50 mL infusion 1 g, intravenous, Administer over 30 Minutes, PRE-OP CONTINUOUS, Starting on Fri03/18/16 at 1145, Until Fri03/18/16 at 1927, Controlled antibiotic: has ID approved? Yes, STAT, Pre-Op DOS Rx Approved New Bag 03/18/2016 13:02 EST 1 g metoCLOPramide (REGLAN) injection 10 mg 10 mg, intravenous, PRN, 1 dose, Starting on Fri03/18/16 at 1421, Until Fri03/18/16 at 1927, Nausea, Routine, Recovery (only) naloxone (NARCAN) injection 0.2 mg 0.2 mg, intravenous, PRN, Starting on Fri03/18/16 at 1421, Until Fri03/18/16 at 1927, Opioid Reversal, Routine, Recovery (only) documented in this encounter Discontinued Medications Medication Sig Discontinue Reason Start Date End Da te ciprofloxacin HCl (CIPRO) 750 mg tablet Take 1 Tab by mouth every 12 hours for 21 days. 03/06/2016 03/18/2016 HYDROmorphone (DILAUDID) 2 mg tablet Take 1 Tab by mouth every 4 hours as needed for Pain. Daily Max: 12 mg 03/06/2016 03/18/2016 documented as of this encounter Active and Recently Administered Medications Times are shown in EST. Scheduled Medication Order 03/16/2016 03/17/2016 03/18/2016 ciprofloxacin (CIPRO) IVPB 400 mg (COMPLETED) 400 mg, intravenous, Administer over 60 Minutes, PRE-OP ONCE, 1 dose, On Fri03/18/16 at 1145, Controlled antibiotic: has ID approved? No: Pre-operative surgical prophylaxis, Routine, Pre-Op DOS Rx Approved 1152 (Given - Provid er: Malini Wallace RN) Continuous Medication Order 03/16/2016 03/17/2016 03/18/2016 lactated ringers (LR) infusion 30 mL/hr, intravenous, CONTINUOUS, Starting on Fri03/18/16 at 1145, Until Fri03/18/16 at 1927, Routine, Pre-Op DOS Rx Approved 1206 (New Bag - Prov ider: Vanessa Dee RN) lactated ringers (LR) infusion at 75 mL/hr, intravenous, CONTINUOUS, Starting on Fri03/18/16 at 1445, Until Fri03/18/16 at 1927, Routine, Recovery (only) 1445 (Canceled Entry - Provider: Batch Job User Admin - Comment: Automatically canceled at discontinue of medication order) meropenem (MERREM) 1 g in sodium chloride (NS MBP) 0.9 % 50 mL infusion 1 g, intravenous, Administer over 30 Minutes, PRE-OP CONTINUOUS, Starting on Fri03/18/16 at 1145, Until Fri03/18/16 at 1927, Controlled antibiotic: has ID approved? Yes, STAT, Pre-Op DOS Rx Approved 1302 (New Bag - Prov ider: Jessica Andrade RN - Comment: 1 gram of meropenem started to be administered at 1302 by Christopher Kate.) PRN Medication Order 03/16/2016 03/17/2016 03/18/2016 acetaminophen (TYLENOL) tablet 1,000 mg 1,000 mg, oral, ONCE PRN, 1 dose, Starting on Fri03/18/16 at 1421, Until Fri03/18/16 at 1927, Pain, Fever, Fever especially in neuro patients, Routine, Recovery (only) atropine 0.1 mg/mL syringe 0.5 mg 0.5 mg, intravenous, PRN, Starting on Fri03/18/16 at 1421, Until Fri03/18/16 at 1927, Symptomatic HR < 50, Routine, Recovery (only) diphenhydrAMINE (BENADRYL) injection 6.25 mg 6.25 mg, intravenous, PRN, 2 doses, Starting on Fri03/18/16 at 1421, Until Fri03/18/16 at 1927, nausea, Routine, Recovery (only) fentaNYL citrate (PF) 50 mcg/mL injection 25-100 mcg 25-100 mcg, intravenous, EVERY 5 MIN PRN, Starting on Fri03/18/16 at 1421, Until Fri03/18/16 at 1927, Pain, Routine, Recovery (only) metoCLOPramide (REGLAN) injection 10 mg 10 mg, intravenous, PRN, 1 dose, Starting on Fri03/18/16 at 1421, Until Fri03/18/16 at 1927, Nausea, Routine, Recovery (only) naloxone (NARCAN) injection 0.2 mg 0.2 mg, intravenous, PRN, Starting on Fri03/18/16 at 1421, Until Fri03/18/16 at 1927, Opioid Reversal, Routine, Recovery (only) documented in this encounter Orders Medications Ordered That John ht Not Have Been Administered Count Last Ordered Date First Ordered Date acetaminophen (TYLENOL) tablet 1,000 mg 1 1 05/18/2015 atropine 0.1 mg/mL syringe 0.5 mg 1 016 diphenhydrAMINE (BENADRYL) i njection 6.25 mg 1 03/18/2016 fentaNYL citrate (PF) 50 mcg /mL injection 25-100 mcg 1 03/18/2016 lactated ringers (LR) infusion 1 03/18/2016 metoCLOPramide (REGLAN) injection 10 mg 1 1 05/18/2015 naloxone (NARCAN) injection 0.2 mg 1 2015 Diet Count Last Ordered Date First Orde red Date DISCHARGE DIET 1 03/18/2016 Nursing Count Last Ordered Date First Orde red Date ACTIVITY INSTRUCTIONS 2 03/18/2016 BATHING INSTRUCTIONS 1 03/18/2016 DRIVING INSTRUCTIONS 2 03/18/2016 WOUND CARE INSTRUCTIONS 1 03/18/2016 Transfer Count Last Ordered Date First Orde red Date NOTIFY PPS PACU PATIENT DISCHARGE 1 016 NOTIFY PPS PATIENT ARRIVAL IN PACU 1 2015 Discharge Count Last Ordered Date First Orde red Date DISCHARGE PATIENT 1 03/18/2016 Legal Count Last Ordered Date First Orde red Date MISCELLANEOUS DISCHARGE INSTRUCTIONS 1 02/27 documented in this encounter Additional Health Concerns Infection Onset Date Last Indicated Resolved Time MDR-GNR Comment:IP Note: 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
--- OUTSIDE RECORDS SUMMARY | 2023-12-18 00:17 | XMS_ITS | Encounter Summary ---
Author Organization [facility] Address [address] [place] [address] Care Team Providers Care Electrical Wirer Name Role Phone Unavailable Primary Care Provider Unavailabl e Encounter Details Date Type Department Care Team (Late st Contact Info) Description 05/17/2008 Before PRISM Converted Visit (Maple) [facility] - Maple conversion [address] [place] [address] Rufino Gay, KITCHEN AND COUNTER WORKER [address], [place] [address] Social History Tobacco Use Types Packs/Day Years [...] Priority Date/Time Associated Diagnosis Comments CYTOPATHOLOGY Routine 05/17/2008 0:00 EST documented in this encounter Results * CYTOPATHOLOGY (05/17/2008 0:00 EST) Pathology Report: CYTOPATHOLOGY REPORT ? Reports generated via electronic interface contain original data; ? however they are lacking the format of the original report. ? Caution should be taken when reading/interpreti ng unformatted reports. ? Name: ? BLESSING ORTIZ ? Accession #: ? [id number] ? : ? 1970 (Age: 37) ??F ?Collect Date: ? 05/17/2008 ? Location: ? [facility] ? Receive Date: ? 05/19/2008 ? Provider: ?RUFINO NIMA ANP ? Copy to: ? Specimen/Source: ?Pap Test, Endocervix, ThinPrep Imaging System with ? manual evaluation ? Last Menstrual Period: ? 12/30/08 ? Other: ? HPVA - HPV testing requested if ASC-US on the current ThinPrep Pap test. ? SPECIMEN ADEQUACY ? Satisfactory for Evaluation ? - transformation zone component present ? GENERAL CATEGORIZATION ? Negative for Intraepithelial Lesion or Malignancy ? Document reviewed and electronically signed by: ? Osman Farias, CT(ASCP) ? Report Date: ??05/20/2008 13:15 ? End of Report ? DEVON SESAY 05/17/2008 05/19/2008 Rufino Gay KITCHEN AND COUNTER WORKER PATHOLOGY DOC PEREZ DEVON SESAY [address] [place] [address] documented in this encounter Visit Diagnoses Not on filedocumented in this encounter
--- OUTSIDE RECORDS SUMMARY | 2023-12-18 00:17 | XMS_ITS | Encounter Summary ---
Author Organization [facility] Address [address] [place] [address] Care Team Providers Care Ripening Room Attendant Name Role Phone Victor HugoSera Tommy STEINER Primary Care Provider + Encounter Details Date Type Department Care Team (Latest Contact Info) Description 04/09/2016 8:34 EST - 04/09/2016 23:59 EST Hospital Encounter [facility] [address] [place] [address] Rajesh Ibarra MD [address] [place] [address] [phone] Discharge Disposition: Auto Discharge Social History Tobacco [...] 04/09/2016 documented as of this encounter Discharge Diagnoses [...] documented as of this encounter Care Teams Ripening Room Attendant Relationship Specialty Start Date End Date Sera Gay FNP [address] [place] [address] PCP - General 09/02/13 10/31/22 documented as of this encounter
--- OUTSIDE RECORDS SUMMARY | 2023-12-18 00:17 | XMS_ITS | Encounter Summary ---
Author Organization [facility] Address [address] [place] [address] Care Team Providers Care Metaphysicist Name Role Phone Sera Gay Primary Care Provider + Encounter Details Date Type Department Care Team ([facility] st Contact Info) Description 01/11/2016 Results Only Imaging [facility]- PRISM [phone] Unknown, Provider, Social History Tobacco Use Types [...] /Time OUTSIDE IMAGES - CT BODY Imaging 01/11/2016 14:02 EDT OUTSIDE IMAGES - US BODY Imaging 01/11/2016 14:02 EDT documented as of this encounter Visit Diagnoses Not on filedocumented in this encounter Care Teams Metaphysicist Relationship Specialty Start Date End Date Sera Gay FNP [address] [place] [address] PCP - General 09/02/13 10/31/22 documented as of this encounter
--- OUTSIDE RECORDS SUMMARY | 2023-12-18 00:17 | XMS_ITS | Encounter Summary ---
Author Organization [facility] Address [address] [place] [address] Care Team Providers Care Food Safety Scientist Name Role Phone Unavailable Primary Care Provider Unavailabl e Encounter Details Date Type Department Care Team (Late st Contact Info) Description 06/08/1999 Results Only [facility] - Maple conversion [address] [place] [address] Haleigh Bunch MD Social History Tobacco Use Types Packs/Day Years [...] Priority Date/Time Associated Diagnosis Comments CYTOPATHOLOGY Routine 06/08/1999 12:16 EST documented in this encounter Results * CYTOPATHOLOGY (06/08/1999 12:16 EST) Pathology Report: CYTOPATHOLOGY REPORT Reports generated via electronic interface contain original data; however they are lacking the format of the original report. Caution should be taken when reading/interpreti ng unformatted reports. Name: ? BLESSING ORTIZ ? Accession #: ? [id number] : ? 1970 (Age: 28) ??F ?Collect Date: ? 06/08/1999 Location: ?Receive Date: ? 06/08/1999 Provider: ?HALEIGH BUNCH MD Copy to: ?HALEIGH BUNCH MD ? Specimen/Source: ?Senior Safety Management Consultant ThinPrep Last Menstrual Period: ? GYNECOLOGIC ??CYTOPATHOLOGY ??REPORT Name: DINA,BLESSING ?[facility] : 1970 ?? 28Y F ?Client ID: ?? SS#: [id number] ? Clinician: HALEIGH BUNCH MD ?? Location: [facility] ??Copy to: ?? Specimen: ?Senior Safety Management Consultant ThinPrep ? Source: Vagina/ Cervix/ Endocervix ?Collected: 06/06/99 ? Received: 06/08/1999 ?LMP: 05/23/99 ? Hormone Therapy: No ? : No ? Radiation Therapy: No ?? Post : No ?Chemotherapy: No ?IUD: No ? Prev Abnormal Pap: No ?? Clinical Hx: ?(Blank montague indicate information not provided on requisition) SPECIMEN ADEQUACY: ? Satisfactory For Evaluation ?? GENERAL CATEGORIZATION: ? WITHIN NORMAL LIMITS ? Reviewed And Electronically Signed By: ? Libia Brady, CT(ASCP) ? Olimpia Mayers, CT(ASCP) ? Report Date: ?? 06/12/1999 [facility] Archived Tests - Final Diagnosis Text Field: Clinical History : ? Document reviewed and electronically signed by: ? Conversion ? Report Date: ??06/12/1999 00:00 End of Report DEVON SESAY 06/08/1999 12:1 6 EST 06/08/1999 12:17 EST Haleigh Ilsa Bunch MD PATHOLOGY ORDER ANABEL DEVON SESAY [address] [place] [address] documented in this encounter Visit Diagnoses Not on filedocumented in this encounter
--- OUTSIDE RECORDS SUMMARY | 2023-12-18 00:17 | XMS_ITS | Encounter Summary ---
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 Role Phone Victor Hugo Sera STEINER Primary Care Provider + Reason for Referral * (Routine) - Closed Specialty Diagnoses / Procedures Referred By Contac t Referred To Contact Marti Blair PA-C [address] [place] [address] Referral ID Status Reason Start Date Expiration Date V isits Requested Visits Authorized [id number] Closed Specialty Services Required 03/06/2016 1 1 Comments Call Infectious Disease Clinic if you experience any side effects of your antibiotic - [phone] * (Routine) - Closed Specialty Diagnoses / Procedures Referred By Contac t Referred To Contact Marti Blair PA-C [address] [place] [address] Referral ID Status Reason Start Date Expiration Date V isits Requested Visits Authorized [id number] Closed Specialty Services Required 03/06/2016 1 1 Comments Chest pain (angina) Dizziness or fainting Decreased urine output Fever greater than 101.5 or chills Inability to swallow or increasing difficulty swallowing Increased or new pain Nausea or vomiting Pain unrelieved by medication Recurrence of symptoms that brought you to the hospital Severe or increasing headache Shortness of breath or rapid breathing Skin rash Signs of infection such as pain, redness, swelling or drainage at procedure or wound site Swelling in your legs * (Routine) - Closed Specialty Diagnoses / Procedures Referred By Claudio quinteros Referred To Contact Marti Blair PA-C [address] [place] [phone] Referral ID Status Reason Start Date Expiration Date V isits Requested Visits Authorized [id number] Closed Specialty Services Required 03/06/2016 1 1 Comments We are currently collecting quality data on patients having surgery. You may receive a phone call, email, and/or letter about your surgery asking you a series of follow up questions to evaluate specifics aspects of your care. Thank you for your participation. Encounter Details Date Type Department Care Team (Latest Contact Info) Description 03/01/2016 19:51 EDT - 03/06/2016 17:12 EST Hospital Encounter [facility] General Surgery Unit [address] [place] [id number] Rajesh Ibarra MD [address] [place] [phone] Calculus of kidney (Primary Dx); Fever, unspecified fever cause; Tachycardia; MDRO (multiple drug resistant organisms) resistance; Nephrolithiasis; Bacteremia due to Gram-negative bacteria; Pyelonephritis; Hx of allergy to antibiotic agent Discharge Disposition: Home or Self Care Social [...] Sign Reading Time Taken Comments Blood Pressure 113/73 03/06/2016 1455 EST Pulse 107 03/06/2016 0943 EST Temperature 37.2 ??C (99 ??F) 03/06/2016 1455 EST Respiratory Rate 18 03/06/2016 1455 EST Oxygen Saturation 91% 03/06/2016 1455 EST Inhaled Oxygen Concentration - - Weight 111.7 kg (246 lb 4.1 oz) 03/06/2016 0953 EST Height 165.1 cm (5' 5) 02/27/2016 1143 EDT Body Mass Index 40.98 02/27/2016 1143 EDT documented in this encounter Functional Status [...] Discharge Diagnoses Diagnosis N20.0 Calculus of kidney-N20.0[ICD-10-CM] A41.89 Other specified sepsis-A41.89[ICD-10-CM] N17.9 Acute kidney failure, unspecified-N17.9[ICD-10-CM] Z68.41 Body mass index (BMI) 40.0-44.9, adult-Z68.41[ICD-10-CM] D69.6 Thrombocytopenia, unspecified-D69.6[ICD-10-CM] N39.0 Urinary tract infection, site not specified-N39.0[ICD-10-CM] D62 Acute posthemorrhagic anemia-D62[ICD-10-CM] R00.0 Tachycardia, unspecified-R00.0[ICD-10-CM] R50.9 Fever, unspecified-R50.9[ICD-10-CM] E11.9 Type 2 diabetes mellitus without complications-E11.9[ICD-10-CM] B96.89 Other specified bacterial agents as the cause of diseases classified elsewhere-B96.89[ICD-10-CM] F41.9 Anxiety disorder, unspecified-F41.9[ICD-10-CM] R19.09 Other intra-abdominal and pelvic swelling, mass and lump-R19.09[ICD-10-CM] E66.9 Obesity, unspecified-E66.9[ICD-10-CM] documented in this encounter Discharge Summaries * Gale Chaidez PA - 03/01/2016 1456 EDT [facility] Urology Discharge Summary Primary Care Provider: Teresa Gay Attending Physician: Rajesh Ibarra M.D. Admit Date: February 29, 2016 Discharge Date: March 06, 2016 Disposition: Home or self care Problems and Procedures Admitting Diagnosis: Bilateral renal stones Principal/Final Diagnosis: Bilateral renal stones, Enterobacter cloacae bacteremia & UTI/pyelonephritis Additional Problems Managed in the Hospital Patient Active Problem List Diagnosis ??? Low back pain ??? Calculus of kidney ??? Nephrolithiasis ??? Tachycardia ??? MDRO (multiple drug resistant organisms) resistance ??? Fever ??? Sepsis ??? Bacteremia ??? UTI (urinary tract infection) ??? Left flank pain Principal Procedure: Left percutaneous nephrolithotomy with percutaneous renal access of stone greater than 2 cm, right prone ureteroscopy Date: February 29, 2016 Secondary Procedures: None Hospital Course The patient is a 45-year-old female whom was admitted on February 29, 2016 after undergoing a left percutaneous nephrolithotomy with percutaneous renal access and right prone ureteroscopy with laser lithotripsy and stent placement. The patient tolerated the procedure well. Upon patient procedure thepatient was taken to PACU and a portable chest x-ray was obtained which was negative for pneumothorax. Once patient was stable she was transferred to [place] [address] for her continuing care. Overnight the patient became tachycardic and febrile and required increasing oxygen to keep her sats above 93%. EKG was obtained. Patient underwent a CT chest with contrast PE protocol and a CT renal colic early in th e morning on postop day #1. Postop day 1 patient was febrile and tachycardic. Blood cultures ??2 and urine culture were obtained and were later positive for Enterobacter cloacae . Infectious diseaseswas consulted. Patient was started on ertapenem. Pt remained febrile. On 03/04/16 patient was started on IV Cipro for question of Ertapenem resistance. 03/05/16 Fever curve down trending. Patient was discharged to home on 03/06/16 on Cipro 750 mg po BID until urologic procedure. Pt was afebrile, VSS, tolerating diet, ambulating and pain controlled with oral analgesics at time of discharge. Pt will f/u with dr Ibarra for definitive stone removal. Allergies and Immunizations Allergies Allergen Reactions ??? Levaquin [Levofloxacin] Hives and Itching There is no immunization history on file for this patient. Transition of Care Plans Condition at Discharge: Improved or Stable Discharge Medications: START taking these medications Sig acetaminophen 325 mg tablet Commonly known as: TYLENOL 650 mg, oral, Q4H PRN ciprofloxacin HCl 750 mg tablet Commonly known as: CIPRO 750 mg, oral, Q12H docusate sodium 100 mg capsule Commonly known as: COLACE 100 mg, oral, BID HYDROmorphone 2 mg tablet Commonly known as: DILAUDID 2 mg, oral, Q4H PRN CONTINUE taking these medications Sig amitriptyline 25 mg tablet Commonly known as: ELAVIL 25 mg, DAILY gabapentin 400 mg capsule Commonly known as: NEURONTIN 400 mg, TID Librax (with Clidinium) 5-2.5 mg per capsule Generic drug: clidinium-chlordiazepoxide 1 Cap, TID METOPROLOL SUCCINATE ORAL 25 mg, oral, DAILY pantoprazole 40 mg tablet Commonly known as: PROTONIX 40 mg, oral, DAILY piroxicam 10 mg capsule Commonly known as: FELDENE 10 mg, DAILY Results Pending at Discharge Test results still pending from this admission None Relevant Studies at Discharge CT renal colic March 01, 2016 ?? Impression: ?? 1. Interval bilateral stent placement, proximal end of left stent terminates proximal ureter. Small left para nephric and collecting system gas. No significant hydronephrosis. Reduced stone burden. 2. Low-attenuation fluid left perinephric space, left flank predominantly low-attenuation collection. May represent developing urinoma. If desired, can correlate with delayed postcontrast intravenous-enhanced CT. 3. Small left perinephric fluid hematoma. 4. Decreased size of right adnexal cyst. 5. Multilocular 5 cm cyst anterior to right psoas, stable, likely benign finding such as mesenteric cyst. 6. Small bilateral pleural effusions, bibasilar atelectasis. CT chest with contrast PE protocol Impression: 1. No evidence of pulmonary embolism. 2. Dependent atelectasis within both lower lobes. 3. Enlarged mediastinal and hilar lymph nodes. This pattern of lymph node enlargement is most typically seen with sarcoidosis particularly if the patient is asymptomatic. Consider pulmonary medicine referral to assess for other clinical manifestations of sarcoidosis (hypercalcemia, elevated FRANK level, ocular or skin abnormalities, etc.). Depending upon the clinical scenario, biopsy may not be necessary to exclude malignancy or infection. 4. Fluid collection in the left lower left chest wall/upper abdominal flank deep to the latissimus dorsi muscle likely related to prior nephrostomy. Last Lab Results at Discharge BUN: Lab Results Component Value Date BUN 24 03/03/2016 Creatinine: Lab Results Component Value Date CREATININE 0.79 03/05/2016 CBC: Lab Results Component Value Date WBC 7.68 03/05/2016 RBC 3.18 (L) 03/05/2016 HGB 9.7 (L) 03/05/2016 HCT 28.9 (L) 03/05/2016 MCV 91 03/05/2016 MCH 30.5 03/05/2016 MCHC 33.6 03/05/2016 PLT 134 (L) 03/05/2016 DIFFTYPE Manual 03/03/2016 Electrolytes: Lab Results Component Value Date NA 139 03/05/2016 K 4.0 03/05/2016 CL 102 03/05/2016 CO2 28 03/05/2016 Discharge Follow Up Appointments Scheduled with [facility] in the next [address] Ibarra for definitive stone removal. Urology clinic will call patient with information. Appointments and Procedures Recommended to Patient None Studies We Will Schedule None documented in this encounter Medications at Time [...] for 14 days. 28 Tab 03/18/2016 04/01/2016 ciprofloxacin HCl (CIPRO) 750 mg tablet Take 1 Tab by mouth every 12 hours for 21 days. 42 Tab 03/06/2016 03/18/2016 diclofenac (VOLTAREN) 75 mg EC tablet Take 1 Tab by mouth 2 times daily for 7 days. 14 Tab 03/18/2016 03/25/2016 docusate sodium (COLACE) 100 mg capsule Take 1 Cap by mouth 2 times daily. 03/06/2016 03/10/2018 HYDROmorphone (DILAUDID) 2 mg tablet Take 1 Tab by mouth every 4 hours as needed for Pain. Daily Max: 12 mg 8 Tab 03/06/2016 03/18/2016 phenazopyridine (PYRIDIUM) 200 mg tablet Take 1 Tab by mouth 3 times daily as needed for Pain. 12 Tab 03/18/2016 03/12/2018 tamsulosin (FLOMAX) 0.4 mg capsule Take 1 Cap by mouth daily. 10 Cap 03/18/2016 03/10/2018 documented as of this encounter Ordered Prescriptions Prescription Sig Dispensed Refills Start Date End Da te HYDROmorphone (DILAUDID) 2 mg tablet Take 1 Tab by mouth every 4 hours as needed for Pain. Daily Max: 12 mg 8 Tab 03/06/2016 03/18/2016 docusate sodium (COLACE) 100 mg capsule Take 1 Cap by mouth 2 times daily. 03/06/2016 03/10/2018 ciprofloxacin HCl (CIPRO) 750 mg tablet Take 1 Tab by mouth every 12 hours for 21 days. 42 Tab 03/06/2016 03/18/2016 acetaminophen (TYLENOL) 325 mg tablet Take 2 Tabs by mouth every 4 hours as needed for Pain. 03/06/2016 06/14/2020 documented in this encounter Discharge Disposition Disposition Code Departure Means Destination Home or Self Care documented in this encounter Progress Notes * Nicol Wallace MD - 03/06/2016 1125 EST Infectious Disease Consultation Follow Up Note Admit Date: 03/01/2016 Hospital Day: LOS: 5 days Date of Service: 03/06/2016 Followup For: Enterobacter cloacae bacteremia & UTI/pyelonephritis 24 Hour Events: Tmax 38.1 Subjective: feeling better today. Really wants to go home. Ashby out this morning. No rash. Anti-infectives & Other Pertinent Medications: Ertapenem 03/01 - present (day #6) Ciprofloxacin 11 - present (day #3) Vital Signs: Visit Vitals ??? BP 131/78 ??? Pulse (!) 107 ??? Temp 37.8 ??C (100 ??F) (Tympanic) ??? Resp 16 ??? Ht 165.1 cm (65) ??? Wt (!) 111.7 kg (246 lb 4.1 oz) ??? SpO2 92% ??? BMI 40.98 kg/m2 Exam: Appears healthier today, but still pale No rash PIV Skin tear on left AC Ashby removed Data Review: Laboratory data reviewed. Pertinent positives include: Labs: Cr 0.79 WBC 7.68 Hb 9.7 Plt 134 Microbiology: 03/01/16 urine clx 10 - 100k Enterobacter cloacae complex (R ceftriaxone, tmp/smx, ertapenem & meropenem susceptible) 03/01/16 1 of 4 BC: Enterobacter cloacae (intermediate to ertapenem, susceptible to meropenem) 03/04/16 2 of 2 BC: NGTD Assessment: 1. Enterobacter cloacae UTI/pyelonephritis/infected kidney stone: clinically improving. Repeat susceptibilities of blood and urine isolates confirm discrepancy with ertapenem susceptibility. Clinically improving. Ok to discontinue ertapenem and continue with monotherapy with ciprofloxacin. 2. Hx of drug rash or hives with levofloxacin: currently tolerating ciprofloxacin without signs of allergy. Counseled to call physician immediately if she were to develop hives or rash. Depending upon severity, would try treatment with benadryl as changing antibiotic therapy would require picc line. 3. Fever: Tmax 38.1C in past 24 hours. Secondary to #1. 4. Hx of kidney stones: Small stone remains Recommendations: - ok to discontinue ertapenem - ok to discontinue IV ciprofloxacin and start ciprofloxacin 750mg po q 12 hours. - discussed need to not take cipro with milk products and temporally separate with vitamin supplements - plan to continue ciprofloxacin through removal of stone/stents. Would prefer follow up proceduressooner rather than later to minimize allergic reaction risk and risk of C. Diff infection. - please include ID clinic phone number on discharge summary in case patient has concerns: [phone] - at time of future urologic procedures, would include meropenem 1g IV in pre-op antibiotics. Discussed with primary care team Nicol Wallace MD 03/06/2016 11:25 * Roel Ahumada MD - 03/06/2016 0706 EST Urology Progress Note Chief complaint: bilat kidney stones POD # 6 s/p L PCNL with access (>2cm), R prone ureteroscopy 24 hour events: Tmax 38.1 CANDACE o/n Subjective: Feels sore, worse when moving around. Ready for catheter to come out. ROS as above. All others negative. Objective: Blood pressure 139/79, pulse (!) 106, temperature 37.9 ??C (100.2 ??F), temperature source Tympanic, resp. rate 16, height 165.1 cm (65), weight (!) 112.1 kg (247 lb 1.6 oz), SpO2 94 %. Intake/Output Summary (Last 24 hours) at 03/06/16 0706 Last data filed at 03/06/16 0606 Gross per 24 hour Intake 1664.67 ml Output 6050 ml Net -4385.33 ml Exam: Gen: NAD CV: Tachycardic 100s Resp: nl effort on RA Abdominal: Soft, non-distended Back: L CVA tenderness with area approximately 20cm around flank incision swollen and firm, mild erythema inferiorly, no bruising. L flank dressing CDI, no strike-through - dressing removed on roundsthis morning : Urine Assessment Urinary Status: Ashby Urine Color: Jeimy Urine Appearance: Clear CBC Recent Labs 03/04/16 0549 03/05/16 0333 WBC 11.76 7.68 RBC 3.21* 3.18* HGB 9.8* 9.7* HCT 29.3* 28.9* MCV 91 91 MCHC 33.4 33.6 PLT 119* 134* BMP Recent Labs 03/04/16 0718 03/05/16 0333 CREATININE 0.86 0.79 NA 140 139 K 3.9 4.0 CL 104 102 CO2 28 28 Assessment: Pt is a 45 y.o. female POD #6 s/p L PCNL, R prone ureteroscopy. Course complicated by tachycardia, fever, sepsis of origin, ZABRINA now improving, acute blood loss anemia, thrombocytopenia and hypotension requiring aggressive fluid recussitation. Will continue to monitor flank swelling which is likely irrigation fluid during PCNL Plan: Appreciate ID recs: ertapenem and cipro SLIV Encourage IS OOB/amb QID as tolerated Remove ashby catheter, check PVR x2 Follow up Cultures - enterobacter in urine and blood. Blood sensitivities pending Follow up repeat blood cultures HOLLAND: pending Diet: DIET REGULAR DVT Prophylaxis: ambulate, SCDs, heparin Q12 Roel Ahumada MD 03/06/2016 7:06 Weekdays from 7AM-5PM page [phone] with questions. * Nicol Wallace MD - 03/05/2016 1622 EST Infectious Disease Consultation Follow Up Note Admit Date: 03/01/2016 Hospital Day: LOS: 4 days Date of Service: 03/05/2016 Followup For: Enterobacter UTI/pyelonephritis & bacteremia 24 Hour Events: Ciprofloxacin added yesterday (03/04) due to possible resistance to ertapenem Subjective: fever curve down trending. Mrs. Ortiz states she is 95% better today. Left flank pain is 2/10 (previously 8-9). No diarrhea. Walking in the halls. No skin rash or irriation or hives. Anti-infectives & Other Pertinent Medications: Ertapenem 03/01 - present (day #5) Ciprofloxacin 03/04 - present (day #2) Vital Signs: Visit Vitals ??? BP 124/82 (BP Cuff Location: Right arm, Patient Position: Semi fowlers) ??? Pulse (!) 112 ??? Temp 37 ??C (98.6 ??F) (Tympanic) ??? Resp 19 ??? Ht 165.1 cm (65) ??? Wt (!) 116.3 kg (256 lb 4.8 oz) ??? SpO2 93% ??? BMI 42.65 kg/m2 Exam: Resting comfortably in bed, looks less pale NC, AT, anicteric sclera Tachycardic CTAB Left flank much less tender and slightly less protuberant today Clean dressing on left flank No rash, skin tear in left AC piv Data Review: Laboratory data reviewed. Pertinent positives include: Labs: WBc 7.68 Cr 0.79 Microbiology: 03/01/16 urine clx 10 - 100k Enterobacter cloacae complex (R ceftriaxone, tmp/smx) 03/01/16 BC: Enterobacter cloacae (intermediate to ertapenem) 03/04/16 BC: NGTD Assessment: 1. Fevers: Improving. Likely due to time and not addition of ciprofloxacin as she has not received enough drug to be at steady state. 2. Enterobacter cloacae UTI/pyelonephritis/infected kidney stone: Repeat blood cultures NGTD. Clinically improving with ertapenem and addition of ciprofloxacin. Due to discrepancy in susceptibility reports from blood and urine isolates, micro lab repeated testing. Blood isolate intermediate to ertapenem. With clinical improvement would continue with both ertapenem and ciprofloxacin for an additional 24 hours. Anticipate transitioning to ciprofloxacin orally for home therapy. 3. Hx of hives with levofloxacin: Currently no evidence of allergic reaction or adverse event. Counseled patient to notify nurse or physician immediately if develops itching or hives. 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 4. Hx of kidney stones 5. Resolved ZABRINA Recommendations: - continue ertapenem 1g IV q 24 hours - continue ciprofloxacin 400mg IV q 12 hours - follow up blood cultures from 03/04 - monitor for allergic reaction closely Discussed with primary care team Nicol Wallace MD 03/05/2016 16:22 * Roel Ahumada MD - 03/05/2016 0659 EST Urology Progress Note Chief complaint: bilat kidney stones POD # 5 s/p L PCNL with access (>2cm), R prone ureteroscopy 24 hour events: Tmax 38.1 Started cipro Repeat blood cultures obtained CANDACE o/n Subjective: Night was a little rough. Asking about antibiotics. Her left flank feels sore. Has been walking. ROS as above. All others negative. Objective: Blood pressure (!) 142/80, pulse 104, temperature 37.1 ??C (98.8 ??F), temperature source Tympanic,resp. rate 18, height 165.1 cm (65), weight (!) 116.3 kg (256 lb 4.8 oz), SpO2 98 %. Intake/Output Summary (Last 24 hours) at 03/05/16 0659 Last data filed at 03/05/16 0600 Gross per 24 hour Intake 4271.25 ml Output 3650 ml Net 621.25 ml Exam: Gen: NAD CV: Tachycardic 100s Resp: nl effort on O2 NC turned off on rounds Abdominal: Soft, non-distended Back: L CVA tenderness with area approximately 20cm around flank incision swollen and firm, mild erythema inferiorly, no bruising. L flank dressing CDI, no strike-through : Urine Assessment Urinary Status: Ashby Urine Color: [place] Urine Appearance: Clear CBC Recent Labs 03/03/16 0610 03/04/16 0549 03/05/16 0333 WBC 9.08 11.76 7.68 RBC 3.31* 3.21* 3.18* HGB 9.9* 9.8* 9.7* HCT 29.7* 29.3* 28.9* MCV 90 91 91 MCHC 33.3 33.4 33.6 PLT 117* 119* 134* NEUTROABS 6.45 -- -- BMP Recent Labs 03/03/16 0610 03/04/16 0718 03/05/16 0333 CREATININE 1.28* 0.86 0.79 BUN 24 -- -- NA 137 140 139 K 4.0 3.9 4.0 CL 103 104 102 CO2 25 28 28 Assessment: Pt is a 45 y.o. female POD #5 s/p L PCNL, R prone ureteroscopy. Course complicated by tachycardia, fever, sepsis of origin, ZABRINA now improving, acute blood loss anemia, thrombocytopenia and hypotension requiring aggressive fluid recussitation. Will continue to monitor flank swelling which is likely irrigation fluid during PCNL Plan: Appreciate ID recs: ertapenem and cipro Repeat blood cultures - follow up SLIV Encourage IS OOB/amb QID as tolerated Follow fever curve - possibly remove ashby today Follow up Cultures - enterobacter in urine and blood. Blood sensitivities pending HOLLAND: pending Diet: DIET REGULAR DVT Prophylaxis: ambulate, SCDs, heparin Q12 Roel Ahumada MD 03/05/2016 6:59 Weekdays from 7AM-5PM page [phone] with questions. * Nicol Wallace MD - 03/04/2016 2034 EST Infectious Disease Consultation Follow Up Note Admit Date: 03/01/2016 Hospital Day: LOS: 3 days Date of Service: 03/04/2016 Followup For: Enterobacter UTI& Bacteremia 24 Hour Events: Continues to be febrile and have low BP. Subjective: ongoing left flank pain - not improved in the past few days. Alternating sweats and chills. +nausea. Trying to walk in halls, but poor energy. Anti-infectives & Other Pertinent Medications: Cefazolin 02/28 Ertapenem 03/01 - present Vital Signs: Visit Vitals ??? BP 111/64 (BP Cuff Location: Left arm, Patient Position: Sitting) ??? Pulse (!) 125 ??? Temp 37.1 ??C (98.8 ??F) (Tympanic) ??? Resp 16 ??? Ht 165.1 cm (65) ??? Wt (!) 116.1 kg (255 lb 14.4 oz) ??? SpO2 94% ??? BMI 42.58 kg/m2 Exam: Sitting in chair Pale, looks ill NC, AT, no thrush Tachycardic CTAB Left flank with bulging area - slightly warmer from other skin. Clean dressing on left flank No rash PIV Obese Data Review: Laboratory data reviewed. Pertinent positives include: Labs: Cr 0.86 WBC 11.76 Hb 9.8 Plt 119 Microbiology: 03/01/16 urine clx 10 - 100k Enterobacter cloacae complex (R ceftriaxone, tmp/smx) 03/01/16 1 of 4 BC: Enterobacter cloacae Assessment: 1. Persistent fevers: Due to Enterobacter cloacae complex UTI/pyelonephritis and bacteremia and infected nephrolith. There are discrepancies in the blood and urine isolates in regards to carbapenem susceptibilities. I have discussed with the micro lab and both isolates are going to have confirmatory testing, due to be completed on 03/05. This may explain her persistent fevers and hypotension, though it is not unusual for patients with pyelonephritis to have fevers for several days despite appropriate antibiotic therapy. While waiting for confirmatory testing, would add ciprofloxacin. Patient has history of hives to levofloxacin, so would monitor closely. Would like to add cipro over an aminoglycoside at this time aspatient's renal function is just starting to recover. Urology team asked about utility of sampling fluid collection in left flank. I think sampling fluidwould provide a form of pain relief for the patient, but at this time, low suspicion that the fluidcollection is infected. If fevers persist for several more days, then would sample fluid. 2. DM 3. Hx of kidney stones 4. Recovering ZABRINA Recommendations: - continue ertapenem 1g IV q 24 hours - start ciprofloxacin 400mg IV q 12 hours - if becomes hypotensive and there is a consideration of transferring to the SICU, would give a dose of amikacin - 2 sets of blood cultures now. - follow up repeat susceptibilities. - monitor closely for drug reaction/hives/rash to ciprofloxacin Discussed with primary care team Nicol Wallace MD 03/04/2016 14:44 * Roel Ahumada MD - 03/04/2016 0617 EST Urology Progress Note Chief complaint: bilat kidney stones POD # 4 s/p L PCNL with access (>2cm), R prone ureteroscopy 24 hour events: Tmax 38.5 Subjective: Feeling feverish and not great. Had a BM last night. Trying to eat. Walking some. ROS as above. All others negative. Objective: Blood pressure 120/75, pulse (!) 125, temperature 38.3 ??C (100.9 ??F), temperature source Tympanic, resp. rate 20, height 165.1 cm (65), weight (!) 108 kg (238 lb), SpO2 98 %. Intake/Output Summary (Last 24 hours) at 03/04/16 0617 Last data filed at 03/04/16 0551 Gross per 24 hour Intake 4206.09 ml Output 5150 ml Net -943.91 ml Exam: Gen: NAD CV: Tachycardic Resp: nl effort on 2L NC Abdominal: Soft, non-distended Back: L CVA tenderness with area approximately 20cm around flank incision swollen and firm, mild erythema inferiorly, no bruising. L flank dressing CDI, no strike-through : Urine Assessment Urinary Status: Ashby, Draining Urine Color: Harford Urine Appearance: Clear CBC Recent Labs 03/02/16 0610 03/02/16 1235 03/03/16 0610 WBC 10.54 9.54 9.08 RBC 3.62* 3.62* 3.31* HGB 11.0* 11.0* 9.9* HCT 32.2* 32.4* 29.7* MCV 89 90 90 MCHC 34.2 34.0 33.3 PLT 136* 111* 117* NEUTROABS 5.68 -- 6.45 BMP Recent Labs 03/02/16 0610 03/03/16 0610 CREATININE 1.82* 1.28* BUN -- 24 NA 130* 137 K 4.5 4.0 CL 95* 103 CO2 23 25 Assessment: Pt is a 45 y.o. female POD #4 s/p L PCNL, R prone ureteroscopy. Course complicated by tachycardia, fever, sepsis of origin, ZABRINA now improving, acute blood loss anemia, thrombocytopenia and hypotension requiring aggressive fluid recussitation. Will continue to monitor flank swelling which is likely irrigation fluid during PCNL Plan: Appreciate ID recs: ertapenem LR at 125cc Encourage IS OOB/amb QID as tolerated Cont ashby. Will not remove this morning as she was febrile yesterday Follow up Cultures - enterobacter in urine and blood. Blood sensitivities pending HOLLAND: pending Diet: DIET REGULAR DVT Prophylaxis: ambulate, SCDs, heparin Q12 Roel Ahumada MD 03/04/2016 6:17 Weekdays from 7AM-5PM page [phone] with questions. * Shiraz Santana MD - 03/03/2016 1001 EST Urology Progress Note Chief complaint: bilat kidney stones POD # 1 s/p L PCNL with access (>2cm), R prone ureteroscopy 24 hour events: 2L bolus for hypotension Subjective: Feels improved this AM but rough night. No chest pain, palpitations, dizziness, SOB. Pt with good pain control o/n. No N/V/SOB. Ambulating ROS as above. All others negative. Objective: Blood pressure 106/59, pulse (!) 115, temperature 36.6 ??C (97.9 ??F), temperature source Tympanic,resp. rate 20, height 165.1 cm (65), weight (!) 108 kg (238 lb), SpO2 94 %. Intake/Output Summary (Last 24 hours) at 03/03/16 1001 Last data filed at 03/03/16 0933 Gross per 24 hour Intake 5268.67 ml Output 5025 ml Net 243.67 ml Exam: Gen: NAD CV: Fast reg Resp: nl effort on 2L NC Abdominal: Soft, non-distended Back: L CVA tenderness with area approximately 20cm around flank incision swollen and firm, no redness or bruising. L flank dressing CDI : Urine Assessment Urinary Status: Ashby, Draining Urine Color: Harford Urine Appearance: Clear CBC Recent Labs 03/02/16 0610 03/02/16 1235 03/03/16 0610 WBC 10.54 9.54 9.08 RBC 3.62* 3.62* 3.31* HGB 11.0* 11.0* 9.9* HCT 32.2* 32.4* 29.7* MCV 89 90 90 MCHC 34.2 34.0 33.3 PLT 136* 111* 117* NEUTROABS 5.68 -- -- BMP Recent Labs 03/01/16 0345 03/02/16 0610 03/03/16 0610 CREATININE 1.13* 1.82* 1.28* BUN 12 -- 24 NA 141 130* 137 K 4.6 4.5 4.0 CL 99 95* 103 CO2 26 23 25 Assessment: Pt is a 45 y.o. female POD #3 s/p L PCNL, R prone ureteroscopy. Course complicated by tachycardia, fever, sepsis of origin, ZABRINA now improving, acute blood loss anemia, thrombocytopenia and hypotension requiring aggressive fluid recussitation. Will continue to monitor flank swelling which is likely irrigation fluid during PCNL Plan: Appreciate ID recs: ertapenem AM labs LR at 125cc Encourage IS OOB/amb QID as tolerated Cont ashby. Remove tomorrow if afebrile Follow up Cultures - enterobacter in urine and blood. Blood sensitivities pending HOLLAND: pending Diet: DIET REGULAR DVT Prophylaxis: ambulate, SCDs, heparin Q12 Shiraz Santana MD 03/03/2016 10:01 Weekdays from 7AM-5PM page [phone] with questions. * Orquidea Underwood RN - 03/02/2016 5716 EDT Critical Access Treatment Support (CATS) Team Nursing Note (SBAR) Status of Event Upon Arrival: Asked to assess patient by bedside rn. Code Status: Full Background: Pt with ongoing s/s of infection- elevated temp, HR, SBP 80's. Pt drowsy but following commands. Pt has been like this for most of the day. Primary team aware. On antibiotics; cultures pending. Pt on maintenaince fluids, making urine. Pulse regular. Hourly Checks: CATS - Hourly Checks Routine Hourly Observation: Yes Vitals: Patient Vitals for the past 4 hrs: Temp Pulse Resp BP SpO2 03/02/162205 37.4 ??C (99.3 ??F) (!) 123 22 (!) 82/48 93 % 03/02/162204 37.5 ??C (99.5 ??F) - - - - 03/02/162203 36.7 ??C (98 ??F) - - - - 03/02/161950 38.5 ??C (101.3 ??F) (!) 141 18 (!) 88/52 93 % Respiratory: CATS - Respiratory O2 Device: Nasal cannula O2 Flow Rate (L/min): 2 l/min Neurological: Pt drowsy. Awakens and answers questions appropriately. Falls asleep while sipping water; partiallyeaten food tray at bedside. GCS: 4-5-6 Skin: Flushed, diaphoretic, pale. Pain: 0/10 Cats - Recommendations: Continue antibx and fluids. Suggested discussing with MD ekg, lactic acid level, more fluids. Plan discussed with primary RN and supercharger repair supervisor; low threshold for cats call (o2 need increase, further drop in BP, mental status change) Pt reevaluated 1 hour later, resting with hr Improved in 120's, sbp remains in 80's. CATS Team Members: * Shiraz Santana MD - 03/02/2016 1203 EDT Urology Progress Note Chief complaint: bilat kidney stones POD # 1 s/p L PCNL with access (>2cm), R prone ureteroscopy 24 hour events: +BCx - enterobacter ID consult - ertapenem 4L LR bolus Subjective: Feels crummy this AM. No chest pain, palpitations, dizziness, SOB. Pt with good pain control o/n. No N/V/SOB. Ambulating slowly ROS as above. All others negative. Objective: Blood pressure (!) 74/40, pulse (!) 125, temperature 37.2 ??C (99 ??F), temperature source Tympanic, resp. rate 16, height 165.1 cm (65), weight (!) 108 kg (238 lb), SpO2 96 %. Intake/Output Summary (Last 24 hours) at 03/02/16 1203 Last data filed at 03/02/16 1144 Gross per 24 hour Intake 5313.17 ml Output 1970 ml Net 3343.17 ml Exam: Gen: NAD CV: Fast reg Resp: CTAB on 3L NC Abdominal: Soft, non-distended Back: no CVA tenderness, or flank bruising. L flank dressing CDI : Ashby draining Urine Assessment Urinary Status: Ashby, Draining Urine Color: Harford Urine Appearance: Clear CBC Recent Labs 03/01/16 0345 03/01/16 1000 03/02/16 0610 WBC 11.61 8.28 10.54 RBC 4.59 4.73 3.62* HGB 14.0 14.2 11.0* HCT 41.1 42.5 32.2* MCV 90 90 89 MCHC 34.1 33.4 34.2 PLT 189 170 136* BMP Recent Labs 03/01/16 0345 03/02/16 0610 CREATININE 1.13* 1.82* BUN 12 -- NA 141 130* K 4.6 4.5 CL 99 95* CO2 26 23 Assessment: Pt is a 45 y.o. female POD #2 s/p L PCNL, R prone ureteroscopy. Course complicated by tachycardia, fever, sepsis of origin, ZABRINA, acute blood loss anemia, thrombocytopenia and hypotension requiringaggressive fluid recussitation. Plan: Appreciate ID recs: ertapenem LR at 125cc Encourage IS OOB/amb QID as tolerated Cont ashby Follow up Cultures HOLLAND: pending Diet: DIET REGULAR DVT Prophylaxis: ambulate, SCDs, heparin Q12 Shiraz Santana MD 03/02/2016 12:03 Weekdays from 7AM-5PM page [phone] with questions. * Nathalie Castro - 03/01/2016 1015 EDT Initial Case Management/Social Work Assessment and Discharge Plan/Readmission Risk Assessment REASON FOR ADMISSION: <principal problem not specified> Patient understands reason for admission: Yes PATIENT CONTACT INFO VERIFIED: Yes LIVING ARRANGEMENTS AND ACCESSIBILITY ISSUES: Living Arrangements: Spouse / significant other, Children, Family members (4 month old granddaughter and daughter) Levels: 1 Stairs to enter: 4 or more (14) Handicap access: None Bathroom located on bedroom level?: Yes Home Care Services: No Type of Home Care Services: None What in home social supports are available to the patient? Children, Friends / neighbors, Family member(s), Spouse / significant other Is 24/7 care available? Yes ADVANCED DIRECTIVES, POA &/or COLST IN PLACE: Healthcare Directive: No, patient does not have advance directive for healthcare treatment Information Provided on Healthcare Directives: Yes Information on Healthcare Directives Requested: No (They have the paperwork) Patient Requests Assistance: No DIRECTIVES FOR FINANCES: Directive For Finances: No TRANSPORTATION: Transportation: Family CULTURAL, PRESYBETERIAN and/or LANGUAGE factors affecting health care/discharge planning: Spiritual/Cultural Requests: None Any factors affecting health care/discharge planning?: No Insurance in Place: Yes Medical Insurance: Yes Type of insurance: Commercial insurance, Medicare Medicare type: A, B Commercial coverage: Cigna is Primary Referred to patient financial services: No DISCHARGE RISK ASSESSMENT: Diagnosis of Diabetes Total # selected above: Score of 1 - 2: This patient is at LOW RISK for re-hospitalization Tentative plan to address the risk of re-hospitalization for those at HIGH MODERATE RISK: Other: RAPT TOOL: Age: 50-65 Gender: Female Ambulation distance: 1-2 blocks Gait device: None Community Services: Home health, MOW, SASH-none of one time a week Will you live with someone who will care for you?: Yes RAPT Tool Score: 10 Patient expects to be discharged to: home FUNCTIONAL STATUS: Activities patient requires assistance: None Assistive Device: None COMMUNITY RESOURCES/SUPPORTS: Primary Care Provider: Teresa Gay PCP Verified: Yes Specialists: None Home Care Services: No Type of Home Care Services: None DME Provider: None Pharmacy: Current Pharmacy ([facility]) Home Health: None Other: POST HOSPITAL TRANSITION PLAN: Pending clinical course and evaluations. CM spoke with the pt and spouse about the possible need for IV ABX. If she requires them she would prefer to have the [facility] infusion center provide the medications [facility]. The pt states shewould like a script for a shower chair-team aware. Nathalie Castro 03/01/2016 10:15 * Shiraz Santana MD - 03/01/2016 4691 EDT [facility] Urine Culture results from 01/11: Enterobacter S: amikacin, cipro, ertapenem, gent, levaquin, tetracycline, tobramycin R: amoxicillin, ampicillin, ceftazadime, ceftriaxone, cefazolin, pip/tazo [facility] will fax results * Cuong Oneill MD - 03/01/2016 7118 EDT Urology Progress Note Chief complaint: bilat kidney stones POD # 1 s/p L PCNL with access (>2cm), R prone ureteroscopy 24 hour events: CXR negative for PTX Venti mask in PACU Tachycardia overnight Febrile to 38.7 O2 weaned to 3L EKG: ST with T wave inversions Subjective: Slept poorly. No chest pain, palpitations, dizziness, SOB. Pt with good pain control o/n. Sore L flank. Nausea this AM. Ambulating some. Father has history of DVTs and PEs. No sore calves. ROS as above. All others negative. Objective: Blood pressure 122/62, pulse (!) 124, temperature 38.1 ??C (100.5 ??F), temperature source Oral, resp. rate 16, height 165.1 cm (65), weight (!) 108 kg (238 lb), SpO2 96 %. Intake/Output Summary (Last 24 hours) at 03/01/16 0544 Last data filed at 03/01/16 0529 Gross per 24 hour Intake 3327.33 ml Output 1160 ml Net 2167.33 ml Exam: Gen: NAD CV: Fast reg Resp: CTAB on 3L NC Abdominal: Soft, non-distended Back: no CVA tenderness, or flank bruising. L flank dressing CDI : Ashby draining clear red urine Urine Assessment Urinary Status: Ashby, Draining CBC Recent Labs 03/01/16 0345 WBC 11.61 RBC 4.59 HGB 14.0 HCT 41.1 MCV 90 MCHC 34.1 PLT 189 BMP Recent Labs 03/01/16 0345 CREATININE 1.13* BUN 12 NA 141 K 4.6 CL 99 CO2 26 Assessment: Pt is a 45 y.o. female POD #1 s/p L PCNL, R prone ureteroscopy. Course complicated by tachycardia, fever, persistent O2 req overnight concerning for PE. Family history of PE. Otherwise good pain control, labs within nl limits. Plan: CT PE stat, CT renal colic precon phase Encourage IS OOB/amb QID as tolerated SLIV Cont periop abx DC ashby HOLLAND: pending Diet: DIET REGULAR DVT Prophylaxis: ambulate, SCDs, heparin Q12 Cuong Oneill MD 03/01/2016 5:44 Weekdays from 7AM-5PM page [phone] with questions. * Idalmis Alvarado RN - 02/27/2016 1142 EDT Blessing Ortiz has been instructed as follows regarding medication administration for the day of thescheduled procedure. Date of Surgery: 02/29/2016 Instructions for Taking Medications Day of Surgery Medication Sig Last Dose Hold DOS Take DOS amitriptyline (ELAVIL) 25 mg tablet Take 25 mg by mouth daily. Take clidinium-chlordiazepoxide (LIBRAX, WITH CLIDINIUM,) 5-2.5 mg per capsule Take 1 Cap by mouth 3 times daily. Take gabapentin (NEURONTIN) 400 mg capsule Take 400 mg by mouth 3 times daily. take METOPROLOL SUCCINATE ORAL Take 25 mg by mouth daily. Take pantoprazole (PROTONIX) 40 mg tablet Take 40 mg by mouth daily. Take piroxicam (FELDENE) 10 mg capsule Take 10 mg by mouth daily. Take documented in this encounter H&P Notes * Shiraz Santana MD - 02/29/2016 1431 EDT The preoperative history and physical which was performed within 30 days of this procedure has been reviewed and the clinically appropriate elements of the physical examination have been repeated. There are no changes to the documented history and physical or if so such changes are documented below Shiraz Santana MD 02/29/2016 14:31 Source Note - ENVIRONMENTAL STUDIES PROGRAM DIRECTOR, SCAN 2 - 02/28/2016 15:09 EDT documented in this encounter Consult Notes * Nicol Wallace MD - 03/01/2016 1005 EDT Images from the original note were not included. Infectious Disease Consult Note Admit Date: 02/29/2016 Date of Service: 03/01/2016 Requesting Physician: Fred Reason for Consult: Fever after urological procedure HPI: Blessing Ortiz is a 45 y.o. woman with a history of LBP, DMII, depression, nephrolithiasis, depression, interstitial cystitis who presents for elective stone removal now with sepsis. Mrs Ortiz was in her usual state of health until mid november when she developed bilateral flank pain. She presented to her PCP's office who suspected nephrolitisis vs UTI vs pyelo and obtained urine cultures and an abdominal CT. At this time she denies fevers, chills, dysuria, frequency. She was initially started on bactrim, but this was stopped when urine cultures grew Enterobacter. A CT scan showed nephrolithiasis and and ovarian and pelvic mass. She was then given ceftriaxone IM x5 days witha reported UA for test of cure which showed persistent infection. She was then referred to both gynand urology and after discussion she was taken to the OR on 02/28 for percutaneous nephrolithotomy and r uretoscopy with BL stent placement. Urology did not have culture data and treated the patient with cefazolin. That night she developed fever to 39.1 with fevers, chills, and sweats. She was started on zosyn. Mrs Ortiz reports currently having intermittent chills, SOB, back/flank pain, abdominal pain, nausea. She denies NVD, rashes, lad, sore throat, cp, cough, GAONA, neck pain Review of Systems: A ten point review of systems was performed and negative except for above. Past Medical History: has a past medical history of Anxiety; Calculus of kidney (02/29/2016); Depression; Diabetes mellitus; Hypercholesteremia; Hypertension; IBS (irritable bowel syndrome); and Interstitial cystitis. She also has no past medical history of Anemia; Aortic valve disease; Arthritis; Asthma; Atrial fibrillation; Cancer; CHF (congestive heart failure); Clotting disorder; COPD (chronicobstructive pulmonary disease); Emphysema of lung; GERD (gastroesophageal reflux disease); Heart attack; Heart murmur; Hemophilia; HIV infection; Neuromuscular disease; Osteoporosis; Pancreatitis; Peptic ulcer disease; Peripheral vascular disease; Seizures; Sickle cell anemia; Substance abuse; Thrombocytopenia; Thyroid disease; Ulcerative colitis; Unspecified cerebral artery occlusion with cerebral infarction; or Unspecified hemorrhagic conditions. Past Surgical History: has a past surgical history that includes Tubal ligation; Pilonidal cyst excision; Knee arthroscopy; and ovarian cyst removal. Medications: MAR reviewed. Anti-infectives: Bactrim DS 12/18-12/19 Ceftriaxone 1g im 01/04-01/08 Cefazolin 2g 02/28 Pip-tazo x1 this am Ertapenem 03/01-present Allergies: Levaquin [levofloxacin] - rash Family History: Father bleeding disorder. Mother with breast ca Social History: . On disability. 28 pack year history of tobacco. Vital Signs: Visit Vitals ??? BP 139/75 (BP Cuff Location: Left arm, Patient Position: Semi fowlers) ??? Pulse (!) 125 ??? Temp (!) 39 ??C (102.2 ??F) (Oral) ??? Resp 24 ??? Ht 165.1 cm (65) ??? Wt (!) 108 kg (238 lb) ??? SpO2 96% ??? BMI 39.61 kg/m2 Exam: Head/Neck: Sclera clear. MMM w/o lesion. Heart: Tachycardic with 2/6 systolic murmur. No r/g Lungs: Crackles to mid [place] Abdomen: Obese. Hyperactive BS. Tenderness throughout left side of abdomen without rebound/guarding : ashby in place draining red tinged urine Lymph Nodes: No cervical/supraclavicular lad Skin: No rashes. Small non-infected looking scrapes to right foot and shins Musculoskeletal: No joint inflammation/erythema/warmth Extremities: WWW. No edema Neuro: CN II-xii intact. Catheters: PIVs. ashby Data Review: Laboratory data reviewed. Pertinent positives include: Labs: Microbiology: 12/18 Urine cx >100k Enterobacter cloacae 01/04 >100K Enterobacter cloacae Radiological Studies: I have independently visualized the below preop CT abdomen Per report Renal stones with grade I and II hydro Pelvic mass not connected to any adjacent structures Ovarian mass Post op CT chest Hilar adenopathy Atelectasis No infiltrate Post op CT abdomen Hematoma on left flank BL ureteral pigtails Residual stones Air and fluid along Gerota's fascia Pelvic mass and ovarian mass Assessment: Fever, leukocytosis, and tachycardia: suspect infection of source from extended beta-lactimase producing enterobacter and recent urologic procedure. Likely this was induced by manipulation of colonized stones in the OR. Would transition to carbapenem and follow cultures. Duration will be determined by plan for stents and blood cultures. Other considerations are urinoma/hematoma infection, mass/abcess in pelvis, DVT though given history of colonization and manipulation these are much less likely. Unclear what nodes in chest signify, but would hold on work up for now. Recommendations: Start ertapenem 1g IV daily Follow cultures Place patient in MDR contact isolation Discussed with primary care team Yifan Ramírez MD 03/01/2016 10:05 Attestation statement: I have seen and examined the patient with the resident/fellow. I agree with the findings and plan of care documented in the resident's/fellow's note. Nicol Wallace MD 03/01/2016 19:10 documented in this encounter OR Notes * OR Surgeon - Rajesh Ibarra - 03/01/2016 1026 EDT OPERATIVE REPORT SERVICE DATE: 02/29/2016 PREOPERATIVE DIAGNOSIS: Bilateral kidney stones. POSTOPERATIVE DIAGNOSIS: Bilateral kidney stones. PROCEDURE: Left percutaneous nephrolithotomy with percutaneous renal access of stone greater than 2cm, right prone ureteroscopy with laser lithotripsy and stent placement. SURGEON: Rajesh Ibarra MD JIG BORER: Shiraz Santana MD ANESTHESIA: General. INDICATIONS: Blessing Ortiz is a 45-year-old female with a history of stones and with bilateral flank pain who presented to our clinic with a CT scan showing significant stone burden on the left with a significant but slightly less burden on the right side. She was taken to the OR for left PCNL and likely a stage right ureteroscopy due to that stone burden. NARRATIVE: The patient was brought to the room and safety checklist step 1 was performed. She underwent general anesthesia, was placed in a prone position, prepped and draped in sterile fashion and safety checklist step 2 was performed. We then inserted a flexible cystoscope into the urethra and the left ureteral orifice was seen. A 0.035 Sensor wire was passed and this was passed up to the levelof the kidney. We then used an 8/10-Tunisian dilator to introduce a second guidewire. The dilator wasremoved, leaving the [address] We then passed a 12/14 ureteral access sheath over the Sensor wire and this was advanced up to the level of the UPJ. Under fluoroscopic imaging, we injected approximately 10 mL of air to an air nephrogram and identified a lower pole posterior manasa for our renal access. Then using a triangulation technique with fluoroscopy, we were able to insert an access needle into the lower pole manasa and after withdrawal of the trocar we had air and the saline coming out. We then inserted a Sensor wire through the needle and approximately 20 cm of wire into the upper pole. We then removed the access needle and made a 1 cm skin incision and placed an 8/10 dilator and introduced a second 0.038 Bentson wire at that time. We then used the Bard Max balloon and inserted this over the Sensor wire just into the manasa on fluoroscopy. Again, this manasa was in a lower pole. We then inflated the balloon to a pressure of 12 mmHg and left this in place for approximately 2 minutes, then inserted the rigid sheath over the balloon and this was advanced to the level of the stone in the lower pole calyx. We then removed the balloon and inserted our nephroscope and saw we were in the kidney and at that point navigated around the kidney and identified 2 stones. We first treated the larger stone, which was in an intrapolar location with the ultrasonic lithotriptor/CyberWand. The stone did appear quite hard, but we were able to into small pieces, then use the grasper to evacuate all small fragments. We then turned our attention to the lower pole stone, which was a little bit harder to access due to its location right next the sheath. We did not have to use the CyberWand and were actually able to extract it whole with the grasper. These were sent for stone analysis.We then put the flexible cystoscope in, surveyed the rest of the kidney and saw no further fragments and identified the UPJ and placed a Sensor wire down through the UPJ after removing the access sheath from below. We then placed a double-J stent over the wire with a good curl seen in the bladder and then did attempt to manipulate the proximal pigtail due to its location at the UPJ, but were unable to do so with the basket. We deemed it was in a good location, so the left it be. We then removedthe sheath, still having wire access and held pressure for approximately 3 or 4 minutes and noted no further bleeding, so we placed an interrupted 3-0 Vicryl suture at the skin incision. We then turned our attention to the right side and using a flexible cystoscope we cannulated the right ureteral orifice with a 0.035 Sensor wire and advanced this up to the level of the kidney. We then used an 8/10 to introduce a second wire, a 0.038 Bentson wire, and placed an access sheath 04/10 up to the level of the renal pelvis. It was somewhat tight, but did go without trauma. We then took a flexible digital ureteroscope and identified a large single lower pole stone and with a 200 micron fiber with avariety of settings broke the stone into dust and small fragments. After working for quite some time, we did eventually stop after our vision appeared to not be great any longer and no large fragments were seen at that time. We did do some basketing of the stone at that time and this was sent for analysis as well. The plan at that time was to bring her back for a second look on the right side andto potentially come back on the left side based off her postop day [address] scan. We then removed the ur eteroscope, removed the access sheath and placed a 6 x 24 JJ stent with a good curl seen in the renal pelvis, as well as the urinary bladder. We then put a dressing over her left side and flank incision and again noted no bleeding. We did then place an 18-Tunisian Ashby catheter with good drainage ofthe bladder. ESTIMATED BLOOD LOSS: 50 mL. IV FLUIDS: 1200 mL of LR. URINE OUTPUT: Not measured. SPECIMENS: Kidney stones. CULTURES: None. FOREIGN MATERIAL RETAINED: Bilateral 6 x 24 JJ stent and 18-Tunisian Ashby. COMPLICATIONS: None. DISPOSITION: PACU. PLAN: She will have a CT scan on postop day 1 and a plan will be made for either stent removal or staged ureteroscopy for most likely the right and possibly the left, based off of any fragments remaining. Unless otherwise noted, there were no complications, no blood loss, no cultures obtained, no specimens removed, and no drains retained. Attending attestation: I was present during the entire procedure. I saw and examined the patient 03/04/2016. I agree with the findings and plan of care documented in the resident's/fellow's note. Rajesh Ibarra MD 03/04/2016 11:02 Rajesh Ibarra MD 09 07 AM / Shiraz Santana MD cn Confirmation: [id number] Dictation ID: [id number] documented in this encounter Miscellaneous Notes * Plan of Care - Franklin Zelaya RN - 03/06/2016 1712 EST Problem: Daily Care Plan Goals Goal: Care Plan Documentation Outcome: Completed Date Met: 03/06/16 03/06/16 1600 Care Plan Focus Area of Focus Discharge Plan Goal This Shift dc home Nursing Discharge Note D: Patient noted with discharge orders to: home. A: Prescriptions faxed to pharmacy. Reviewed discharge instructions and prescriptions with Patient IV d/c'd. R: Patient verbalized understanding of discharge instructions and denied further questions. Franklin Zelaya RN 03/06/2016 18:20 * Plan of Care - Catherine Garcia RN - 03/06/2016 1454 EST Problem: Daily Care Plan Goals Goal: Care Plan Documentation Outcome: Met This Shift 03/06/16 0804 Care Plan Focus Area of Focus GI//Elimination Goal This Shift Pt will empty bladderafter cathteter removal Data: Ashby catheter removed this morning at 0800. Action: Assisted [atient to bathroom. Scanned bladder for PVR. Response: Patient voided adequate amount and PVR less than 100cc. Catherine Garcia RN 03/06/2016 14:52 * Plan of Care - Ladi Irving RN - 03/06/2016 0209 EST Problem: Daily Care Plan Goals Goal: Care Plan Documentation Outcome: Met This Shift 03/05/16 2049 Care Plan Focus Area of Focus Thermoregulation Goal This Shift Pt's temp will remain less than 38 this shift. Data: The goal for this shift was for patient to remain afebrile with temp below 38.0 C. Action: Scheduled medications given, PRN medications given as requested, see EMAR. Encouraged use of IS and PO fluid intake. Response: Temperature max during this shift was 38.1 C. Patient was observed to be asleep with RR WNL during hourly rounding, call antoine within reach, will continue to monitor. Ladi Irving RN 03/06/2016 1:49 * Plan of Kira - Catherine Garcia RN - 03/05/2016 1354 EST Problem: Daily Care Plan Goals Goal: Care Plan Documentation Outcome: Met This Shift 03/05/16 1002 Care Plan Focus Area of Focus Thermoregulation Goal This Shift Patient 's temp- will reman less than 38 this shift. Data: Patient POD 5 s/p L PCNL and R Prone ureteroscopy. Patient febrile for last few days. The goal for today is to remain temp less than 38.0 C Action: Patient received scheduled and PRN medicine( see MAR). Encouraged to use IS. Pt ambulated 200 ft using walker. Response: Patient remain afebrile this shift .Max Temp remained 37.9 in am and 37.0 at 1345. Patient sleeping conformably. Family in room. Catherine Garcia RN 03/05/2016 13:40 * Plan of Kira - Ladi Irving RN - 03/05/2016 0433 EST Problem: Daily Care Plan Goals Goal: Care Plan Documentation Outcome: Not Met This Shift 03/04/16 2100 Care Plan Focus Area of Focus Thermoregulation Goal This Shift Pt temp will remain less than 38.0 this shift. Data: Patient POD 5 s/p L PCNL and R prone ureteroscopy. Patient has been febrile the past few days. The goal for this shift was for patient's temp to remain less than 38.0. Action: Scheduled medications given, PRN medications given as requested, see EMAR. Encouraged use of IS. Response: Temperature max of this shift was 38.1. Will continue to monitor. Ladi Irving RN 03/05/2016 4:28 * Plan of Care - Jeanette Watts RN - 03/04/2016 1439 EST Problem: Daily Care Plan Goals Goal: Care Plan Documentation 03/03/162013 Care Plan Focus Area of Focus Thermoregulation Goal This Shift pt temp will remain less than 38.0 this shift Data: patient POD 4 s/p L PCNL and R prone uretoscopy. Patient now with sepsis and has been febrilethe past few days. Action: Encouraged IS and deep breathing, admin tylenol PRN, encouraged OOB. Provided with ice water throughout the shift. Response: patient remains afebrile this shift, tmax 37.1. Jeanette Watts RN 03/04/2016 14:27 * Plan of Care - Brandyn Kumar RN - 03/04/2016 0412 EST Problem: Daily Care Plan Goals Goal: Care Plan Documentation Outcome: Not Met This Shift Data: pt here with urosepsis, has been running elevated temps, high heart rates and softer BP's. Action: temp monitored throughout the night, pt given scheduled medicines, rest promoted and pt encouraged to remain as uncovered as possible to help keep temp lower Response: pt temp got to 38.5 once, recheck after was much lower, pt HR and bp stable this shift Brandyn Kumar RN 03/04/2016 4:08 * Plan of Care - Noy Kaiser - 03/03/2016 1547 EST Problem: Daily Care Plan Goals Goal: Care Plan Documentation Outcome: Ongoing 03/03/16 1320 Care Plan Focus Area of Focus Mobility Goal This Shift ambulate in singletary Data: Pt continues to c/o fatigue but is motivated to ambulate and get OOB to chair. Action: Care clustered and rest promoted. Assisted OOB to chair and to ambulate in singletary. Response: Activity tolerance was fair. Able to ambulate 75ft with FWW and CGA. Spent ~1-2 hours in chair. Currently resting in bed. Noy Kaiser RN 03/03/2016 15:45 * Plan of Care - Yani Ro RN - 03/03/2016 0351 EST Problem: Daily Care Plan Goals Goal: Care Plan Documentation Outcome: Ongoing 03/02/162151 Care Plan Focus Area of Focus Circulatory Status Goal This Shift Monitor BP & HR Data: Patient POD # 2-3 L PCNL, R prone ureterscopy. Patient pos MDRO. Patient tachy sustaining HR in high 130s to low 140s, febrile 39.1, hypotensive BP 88/52 at change of shift, Provider Notified by off going RN. Paged CAT nurse to bedside to assess patient. IVF infusing at 125ml/hr Action: CAT nurse at bedside, HR low 130s and patient temp down to 38.3. Continued to monitored VS.Medicated per JUN. Tylenol given for fever. Notified Provider for low BP 82/50, 500 NS Bolus administer per orders. Monitored I/O. Response: Patient reported feeling progressively better throughout the night. BP responded to Bolus94/52 when last checked. Last Temp 37.3, and HR currently in 120s. See doc flow sheets for VS &I/O. Patient sleeping comfortably at this time, call antoine within reach. Will continue to monitor and intervene as necessary. Yani Ro RN 03/03/2016 3:39 * Plan of Care - Jeanette Watts RN - 03/02/2016 1938 EDT Patient new to this RN @ 1500, patient resting in bed appearing to be comfortable. Upon assessment patient declines pain. Head to toe assessment completed (see flow sheet for abnormalities). Heart rate sustaining 130-141, BP on manual cuff 88/58, Temp 38.8, Oxygen at one point desat to 78%, 2L NC ap plied. Pierre Santana MD made aware of abnormal findings. Tylenol administered, ice provided, cool drinks provided. Encouraged IS use- 500ml was max volume achieved with increased left flank pain each time. Pierre Santana and CATs RN made aware of situation again with 39.0 after interventions. Report given to oncoming RN, awaiting CATs RN for assessment. * Plan of Care - Noy Kaiser - 03/02/2016 1507 EDT Problem: Daily Care Plan Goals Goal: Care Plan Documentation Outcome: Ongoing 03/02/16 0926 Care Plan Focus Area of Focus Circulatory Status Goal This Shift monitor BP Data: Pt rec'd 1L bolus @ 0600 r/t low BP (SBP in 70s). Recheck of BP @ ~0945 was 74/40 manually. HR in 120s and regular. Metoprolol held. MD Santana was made aware and additional 1L bolus ordered. Action: Bolus administered. BP monitored. Response: BP was 89/51 after second bolus. Denies dizziness. Up to ambulate in singletary x2 with CGA. HRremains in 120s and regular. Noy Kaiser RN 03/02/2016 15:00 * Plan of Care - Yani Ro, ALEXA - 03/02/2016 0508 EDT Problem: Daily Care Plan Goals Goal: Care Plan Documentation Outcome: Ongoing 03/01/16 2104 Care Plan Focus Area of Focus Mobility Goal This Shift patient will walk tonight Data: Patient POD # 1-2 L PCNL, R prone ureterscopy. Patient Tachy to 140s during the day & febrile. BC pending. +UA. Patient pos for very drug resistant bacteria. IVF infusing. Action: Monitored I/O & VS. Encouraged patient to maximize mobility and educated on its benefits. Assisted patient OOB and supervised ambulation in hallway. Medicated per JUN. IV zofran for nausea. Encouraged IS. Response: Patient pain well controlled overnight and able to get a smiley sleep. HR improving 110s-120s overnight, low grade temp, slightly hypotensive, last BP 88/50. See doc flow sheets for I/O.Patient tolerated half unit lap (250ft) without O2. Patient requiring O2 when sleeping. Patient sleeping comfortably at this time, call antoine within reach. Will continue to monitor and intervene as necessary. Yani Ro RN 03/02/2016 4:58 Update: Patient 78/52 this am. Provider Notified, 1L LR Bolus started per orders. * Plan of Care - Elizabeth Gant RN - 03/01/2016 1444 EDT Problem: Daily Care Plan Goals Goal: Care Plan Documentation Outcome: Met This Shift Data: pt post-op day [address] igor place on contact precaution for MDR and placed in private room. Action: educate pt regarding precautions Response: pt understood and acknowledged Elizabeth Gant RN 03/01/2016 14:35 * Plan of Care - Davina Polo - 03/01/2016 1325 EDT Problem: CONTACT PRECAUTIONS Goal: Prevent Transmission Of Infection Patient has a very drug resistant organism. It does not meet the criteria for MDR-GNR, however after consulting with Infectious Disease they are recommending the patient remain on contact precautionsfor duration of admission with out a roommate. Addendum 03/01/16 at 13:45, upon further review with Infectious Disease, patient flagged as MDR-GNR in banner. Maintain contact precautions. Please call Infection Prevention with questions [phone]. * Anesthesia Post-Christopher Joyner CRNA - 03/01/2016 1132 EDT Post Anesthesia Evaluation Date of Service: 03/01/2016 The patient has been evaluated and assessed. If present, post anesthetic events are documented below. The last set of recorded vital signs and pain rating were reviewed: Temp: (!) 39 ??C (102.2 ??F), Heart Rate: 114 BPM, Pulse: (!) 125, BP: 139/75, Resp: 24, SpO2: 96 % Numeric Pain Level (Scale 1-10): 8 Procedure detail: Anesthesia Type: General Level of Consciousness: Awake Vital Signs: Stable Post Op Pain: Taking PO/IV pain meds with good effect Ambulatory Status: Bedrest Additional follow up needed: No Perioperative events: General Events: None Recall: Absent Christopher Kate CRNA 03/01/2016 11:32 * Plan of Care - Yani Ro RN - 03/01/2016 0133 EDT Problem: Daily Care Plan Goals Goal: Care Plan Documentation Outcome: Ongoing 02/29/162141 Care Plan Focus Area of Focus Communication Goal This Shift Admit patient safely Data: Patient arrived to B328-1 s/p L PCNL & R prone ureteroscopy to tx b/l kidney stones @ 2140. Drowsy&Ox3. VSS. Blood pressure 144/81, pulse 114, temperature 36.3 ??C temperature source Tympanic, resp. rate 16, , SpO2 94 % on 4L/min via NC . LS clear, HR regular, BS hypoactive, neg flatus. Ashby draining orange/cloudy urine. Dressing to L flank C/D/I. Patient rating pain 5/10 on arrival. Action: Oriented patient to unit/call antoine system/bed control. Reviewed menu, ordered diet & how to order meals. Educated patient on pain control/ available prn medications & symptoms to report/ IS use. Medicated per JUN. Monitored I/O. Irrigated x1 overnight to ensure ashby patency. Response: Patient verbalized understanding of above teaching and denied questions at this time. Patient demonstrated proper use of IS, able to get to 1100. See doc flow sheets for I/O. Patient resting comfortably, call antoine within reach. Will continue to monitor and intervene as necessary. Plan to ambulate patient in am. Yani Ro RN 03/01/2016 1:24 Update: Able to wean patient down to 2L/min via NC sating above 93%. Patient tachycardic overnight above 120, and febrile 38.7C tympanic and 38.1C orally. Provider (Yves) notified. STAT EKG orders. MD at bedside this am to assess and review EKG. Discussed with MD okay to hold of on ambulating patient. Patient c/o nausea IV zofran given. Chest CT with contrast ordered patient awaiting IV placement and transport down. * Anesthesia Post-Eval - Johny Bose MD - 02/29/2016 2100 EDT Post Anesthesia Evaluation Note Date of Service: 02/29/2016 Blessing Ortiz, a 45 y.o. year old female has received General Anesthesia She has been evaluated, assessed and discharged from anesthesia care with stable cardiorespiratory function and easily arousable mental status. The last set of recorded vital signs and pain rating were reviewed: Temp: 36.4 ??C (97.5 ??F), Heart Rate: 108 BPM, BP: 120/73, Resp: 21, SpO2: 94 %,Numeric Pain Level(Scale 1-10): 5 Blessing Ortiz participated in this evaluation unless otherwise noted. Her pain, nausea and vomitinghave been managed and her body temperature and fluid balance have been restored. Additional monitoring and assessment needs have been addressed. If present, any postoperative events are documented below. If the regional block for postoperative analgesia was intended to last greater than 48 hours, Blessing Ortiz will be followed by the Acute Pain Service. Johny Bose MD 02/29/2016 21:01 * Brief Op Note - Shiraz Santana MD - 02/29/2016 1756 EDT BRIEF OP NOTE Pre-Op Diagnosis: b/l kidney stones Post-Op Diagnosis: same Procedure: L PCNL with access (>2cm), R prone ureteroscopy Date: 02/29/2016 Surgeon: Fred RANDLE Deli Clerk: King RAZIA Anesth: gen Findings: bilateral stones treated, L tubeless perc EBL: 50 IVF: 1200cc LR UOP: not panchito Specimen: kidney stones Cultures: none Foreign Material Retained: b/l 6x24JJ stents, 18F ashby Complications: none Dispo: pacu Shiraz Santana MD [id number] documented in this encounter Plan of Treatment Scheduled Referrals Name Type Priority Associated Diagnoses Order Schedule PROVIDER FOLLOW-UP INSTRUCTIONS Outpatient Referral Routine Ordered: 03/06/2016 PROVIDER FOLLOW-UP INSTRUCTIONS Outpatient Referral Routine Ordered: 03/06/2016 PROVIDER FOLLOW-UP INSTRUCTIONS Outpatient Referral Routine Ordered: 03/06/2016 documented as of this encounter Procedures Procedure Name Priority Date/Time Associated Diagnosis Comments ECG REPORT - SCANNED 03/19/2016 6:30 EST IMPLANT RECORD - SCANNED 03/11/2016 13:38 EST ECG REPORT - SCANNED 03/11/2016 11:38 EST IMPLANT RECORD - SCANNED 03/11/2016 11:38 EST ECG REPORT - SCANNED 03/11/2016 11:38 EST COMPLETE BLOOD COUNT Routine 03/05/2016 3:33 EST CREATININE Routine 03/05/2016 3:33 EST ELECTROLYTES Routine 03/05/2016 3:33 EST BACTERIAL CULTURE, BLOOD Routine 03/04/2016 15:38 EST BACTERIAL CULTURE, BLOOD Routine 03/04/2016 15:38 EST CREATININE Routine 03/04/2016 7:18 EST ELECTROLYTES Routine 03/04/2016 7:18 EST COMPLETE BLOOD COUNT Routine 03/04/2016 5:49 EST COMPLETE BLOOD COUNT AND DIFFERENTIAL Routine 03/03/2016 6:10 EST BUN Routine 03/03/2016 6:10 EST CREATININE Routine 03/03/2016 6:10 EST ELECTROLYTES Routine 03/03/2016 6:10 EST COMPLETE BLOOD COUNT Routine 03/02/2016 12:35 EDT COMPLETE BLOOD COUNT AND DIFFERENTIAL Routine 03/02/2016 6:10 EDT CREATININE Routine 03/02/2016 6:10 EDT ELECTROLYTES Routine 03/02/2016 6:10 EDT COMPLETE BLOOD COUNT Routine 03/01/2016 10:00 EDT BACTERIAL CULTURE, BLOOD STAT 03/01/2016 7:23 EDT BACTERIAL CULTURE, BLOOD STAT 03/01/2016 7:[address] RENAL COLIC WO CONTRAST Routine 03/01/2016 6:[address] CHEST (PE) PROTOCOL W CONTRAST STAT 03/01/2016 6:55 EDT URINE MICROSCOPIC Routine 03/01/2016 6:4 5 EDT URINALYSIS WITH MICROSCOPIC IF POSITIVE Routine 03/01/2016 6:45 EDT BACTERIAL CULTURE, URINE Routine 03/01/2016 6:45 EDT EKG 12-LEAD STAT 03/01/2016 5:11 EDT SCREENING GLUCOSE Routine 03/01/2016 3:4 5 EDT COMPLETE BLOOD COUNT Routine 03/01/2016 3:45 EDT BUN Routine 03/01/2016 3:45 EDT CREATININE Routine 03/01/2016 3:45 EDT ELECTROLYTES Routine 03/01/2016 3:45 EDT PORTABLE CHEST 1 VIEW Routine 02/29/2016 18:55 EDT RETROGRADE UROGRAM Routine 02/29/2016 18 :30 EDT KIDNEY STONE ANALYSIS Routine 02/29/2016 16:20 EDT TEST, URINE STAT 02/29/2016 12:25 EDT documented in this encounter Results * ECG REPORT - SCANNED (03/19/2016 6:30 EST) 03/19/2016 6:30 EST Scan 2 Enterprise Software Developer PROCEDURE/MINOR ELSA GICAL ORDERABLES * IMPLANT RECORD - SCANNED (03/11/2016 13:38 EST) 03/11/2016 13:3 8 EST Scan 2 Enterprise Software Developer PROCEDURE/MINOR ELSA GICAL ORDERABLES * ECG REPORT - SCANNED (03/11/2016 11:38 EST) 03/11/2016 11:3 8 EST Scan 2 Enterprise Software Developer PROCEDURE/MINOR ELSA GICAL ORDERABLES * ECG REPORT - SCANNED (03/11/2016 11:38 EST) 03/11/2016 11:3 8 EST Scan 2 Enterprise Software Developer PROCEDURE/MINOR ELSA GICAL ORDERABLES * IMPLANT RECORD - SCANNED (03/11/2016 11:38 EST) 03/11/2016 11:3 8 EST Scan 2 Enterprise Software Developer PROCEDURE/MINOR ELSA GICAL ORDERABLES * ELECTROLYTES (03/05/2016 3:33 EST) Sodium 139 136 - 145 mEq/L 03/05/2016 4:11 [facility] Potassium 4.0 3.5 - 5.0 mEq/L 03/05/2016 4:11 [facility] Chloride 102 96 - 110 mEq/L 03/05/2016 4:11 [facility] CO2 28 22 - 32 mEq/L 03/05/2016 4:11 [facility] Comment:Note new reference r alberto 02/13/16 Blood specimen (specimen) BLOOD SPECIMEN / Unknown 03/05/2016 3:33 EST 03/05/2016 3:44 EST Gale A Kaylynn SZYMANSKI CHEMISTRY & BLO OD GAS ORDERABLES [facility] [address] [place] [address] * (ABNORMAL) HEMAGRAM (03/05/2016 3:33 EST) WBC 7.68 4.0 - 12.4 K/cmm 03/05/2016 4:15 [facility] RBC 3.18(L) 3.86 - 5.04 M/cmm 03/05/2016 4:15 [facility] Hemoglobin 9.7(L) 11.6 - 15.2 gm/dl 03/05/2016 4:15 [facility] HCT 28.9(L) 34.9 - 44.4 % 03/05/2016 4:15 [facility] MCV 91 81 - 98 fl 03/05/2016 4:15 [facility] MCH 30.5 26.7 - 33.3 pg 03/05/2016 4:15 [facility] MCHC 33.6 32.1 - 35.9 gm/dl 03/05/2016 4:15 [facility] RDW-CV 12.8 11.7 - 14.6 % 03/05/2016 4:15 [facility] RDW-SD 42.8 37.6 - 50.3 fl 03/05/2016 4:15 [facility] PLT 134(L) 141 - 377 K/cmm 03/05/2016 4:15 [facility] MPV 8.8(L) 9.5 - 12.7 fl 03/05/2016 4:15 [facility] Blood specimen (specimen) BLOOD SPECIMEN / Unknown 03/05/2016 3:33 EST 03/05/2016 3:44 EST Gale Chaidez PA-C HEMATOLOGY & PF 4 ORDERABLES Performing Organization Address [facility] Co de Phone Number [facility] [address] [place] [address] * CREATININE (03/05/2016 3:33 EST) Creatinine 0.79 0.52 - 1.04 mg/dl 03/05/2016 4:11 EST [facility] GFR, Calculated 91 >60 ml/min/1.7 3m2 03/05/2016 4:11 EST [facility] Comment: eGFR calculated using CKD-EPI equation for non Americans. Multiply eGFR by 1.16 for Americans. Blood specimen (specimen) BLOOD SPECIMEN / Unknown 03/05/2016 3:33 EST 03/05/2016 3:44 EST Gale Chaidez PA-C CHEMISTRY & BLO OD GAS ORDERABLES Performing Organization Address [facility] Co de Phone Number [facility] [address] [place] [address] * BACTERIAL CULTURE, BLOOD (03/04/2016 15:38 EST) Result No growth 03/09/2016 9:12 EST [facility] Blood specimen (specimen) BLOOD SPECIMEN / Unknown 03/04/2016 15:38 EST 03/04/2016 16:43 EST Comment:Left~Antecubital Gale MENDOZA-C MICROBIOLOGY - GENERAL ORDERABLES Performing Organization Address [facility] Co de Phone Number [facility] [address] [place] [address] * BACTERIAL CULTURE, BLOOD (03/04/2016 15:38 EST) Result No growth 03/09/2016 9:12 EST [facility] Blood specimen (specimen) BLOOD SPECIMEN / Unknown 03/04/2016 15:38 EST 03/04/2016 16:44 EST Comment:Draw site not indica adrián. Gale Chaidez PA-C MICROBIOLOGY - GENERAL ORDERABLES Performing Organization Address City/[facility]/ZIP Co de Phone Number [facility] [address] [place] [address] * ELECTROLYTES (03/04/2016 7:18 EST) Sodium 140 136 - 145 mEq/L 03/04/2016 8:19 EST [facility] Potassium 3.9 3.5 - 5.0 mEq/L 03/04/2016 8:19 [facility] Chloride 104 96 - 110 mEq/L 03/04/2016 8:19 [facility] CO2 28 22 - 32 mEq/L 03/04/2016 8:19 [facility] Comment:Note new reference martha dominguez 02/13/16 Blood specimen (specimen) BLOOD SPECIMEN / Unknown 03/04/2016 7:18 EST 03/04/2016 7:41 EST Shiraz Santana MD CHEMISTRY & BLOOD GA S ORDERABLES Performing Organization Address City/[facility]/ZIP Co de Phone Number [facility] [address] [place] [address] * CREATININE (03/04/2016 7:18 EST) Creatinine 0.86 0.52 - 1.04 mg/dl 03/04/2016 8:19 [facility] GFR, Calculated 82 >60 ml/min/1.7 3m2 03/04/2016 8:19 [facility] Comment: eGFR calculated using CKD-EPI equation for non Americans. Multiply eGFR by 1.16 for Americans. Blood specimen (specimen) BLOOD SPECIMEN / Unknown 03/04/2016 7:18 EST 03/04/2016 7:41 EST Shiraz Santana MD CHEMISTRY & BLOOD GA S ORDERABLES [facility] [address] [place] [address] * (ABNORMAL) HEMAGRAM (03/04/2016 5:49 EST) WBC 11.76 4.0 - 12.4 K/cmm 03/04/2016 6:19 [facility] RBC 3.21(L) 3.86 - 5.04 M/cmm 03/04/2016 6:19 [facility] Hemoglobin 9.8(L) 11.6 - 15.2 gm/dl 03/04/2016 6:19 [facility] HCT 29.3(L) 34.9 - 44.4 % 03/04/2016 6:19 [facility] MCV 91 81 - 98 fl 03/04/2016 6:19 [facility] MCH 30.5 26.7 - 33.3 pg 03/04/2016 6:19 [facility] MCHC 33.4 32.1 - 35.9 gm/dl 03/04/2016 6:19 [facility] RDW-CV 12.8 11.7 - 14.6 % 03/04/2016 6:19 [facility] RDW-SD 43.2 37.6 - 50.3 fl 03/04/2016 6:19 [facility] PLT 119(L) 141 - 377 K/cmm 03/04/2016 6:19 [facility] MPV 9.0(L) 9.5 - 12.7 fl 03/04/2016 6:19 [facility] Blood specimen (specimen) BLOOD SPECIMEN / Unknown 03/04/2016 5:49 EST 03/04/2016 6:09 EST Rajesh Ibarra MD HEMATOLOGY & PF4 ORDERABLES [facility] [address] [place] [address] * (ABNORMAL) HEMAGRAM AND DIFFERENTIAL (03/03/2016 6:10 EST) WBC 9.08 4.0 - 12.4 K/cmm 03/03/2016 7:38 [facility] RBC 3.31(L) 3.86 - 5.04 M/cmm 03/03/2016 7:38 [facility] Hemoglobin 9.9(L) 11.6 - 15.2 gm/dl 03/03/2016 7:38 [facility] HCT 29.7(L) 34.9 - 44.4 % 03/03/2016 7:38 [facility] MCV 90 81 - 98 fl 03/03/2016 7:38 [facility] MCH 29.9 26.7 - 33.3 pg 03/03/2016 7:38 [facility] MCHC 33.3 32.1 - 35.9 gm/dl 03/03/2016 7:38 [facility] RDW-CV 13.1 11.7 - 14.6 % 03/03/2016 7:38 [facility] RDW-SD 42.9 37.6 - 50.3 fl 03/03/2016 7:38 [facility] PLT 117(L) 141 - 377 K/cmm 03/03/2016 7:38 [facility] MPV 9.4(L) 9.5 - 12.7 fl 03/03/2016 7:38 [facility] Neutrophils 71.0 % 03/03/2016 11:29 [facility] % Bands 13.0 % 03/03/2016 11:29 [facility] Lymphocytes 7.0 % 03/03/2016 11:29 [facility] Monocytes 2.0 % 03/03/2016 11:29 [facility] Eosinophils 6.0 % 03/03/2016 11:29 [facility] Basophils 1.0 % 03/03/2016 11:29 [facility] ABS Neutrophils 6.45 2.20 - 8.85 K/cmm 03/03/2016 11:29 [facility] ABS Bands 1.18 K/cmm 03/03/2016 11:29 [facility] ABS Lymphs 0.64(L) 1.09 - 3.30 K/cmm 03/03/2016 11:29 [facility] ABS Monocytes 0.18 0.1 - 0.8 K/cmm 03/03/2016 11:29 [facility] ABS Eosinophils 0.54 0.03 - 0.61 K/cmm 03/03/2016 11:29 [facility] ABS Basophils 0.09 0.01 - 0.11 K/cmm 03/03/2016 11:29 [facility] Toxic Granulation Present 03/03/2016 11:29 [facility] Type of Diff: Manual 03/03/2016 11:29 [facility] Blood specimen (specimen) BLOOD SPECIMEN / Unknown 03/03/2016 6:10 EST 03/03/2016 6:42 EST Shiraz Santana MD PACKAGES & DNA PROBE ORDERABLES Performing Organization Address [facility] Co de Phone Number [facility] [address] [place] [address] * ELECTROLYTES (03/03/2016 6:10 EST) Sodium 137 136 - 145 mEq/L 03/03/2016 7:23 [facility] Potassium 4.0 3.5 - 5.0 mEq/L 03/03/2016 7:23 [facility] Chloride 103 96 - 110 mEq/L 03/03/2016 7:23 [facility] CO2 25 22 - 32 mEq/L 03/03/2016 7:23 [facility] Comment:Note new reference r alberto 02/13/16 Blood specimen (specimen) BLOOD SPECIMEN / Unknown 03/03/2016 6:10 EST 03/03/2016 6:42 EST Shiraz Santana MD CHEMISTRY & BLOOD GA S ORDERABLES Performing Organization Address [facility] Co de Phone Number [facility] [address] [place] [address] * (ABNORMAL) CREATININE (03/03/2016 6:10 EST) Creatinine 1.28(H) 0.52 - 1.04 mg/dl 03/03/2016 7:23 [facility] GFR, Calculated 51(L) >60 ml/min/1.7 3m2 03/03/2016 7:23 EST [facility] Comment: eGFR calculated using CKD-EPI equation for non Americans. Multiply eGFR by 1.16 for Americans. Blood specimen (specimen) BLOOD SPECIMEN / Unknown 03/03/2016 6:10 EST 03/03/2016 6:42 EST Shiraz Santana MD CHEMISTRY & BLOOD GA S ORDERABLES Performing Organization Address [facility] Co de Phone Number [facility] [address] [place] [address] * BUN (03/03/2016 6:10 EST) BUN 24 10 - 26 mg/dl 03/03/2016 7:23 EST [facility] Blood specimen (specimen) BLOOD SPECIMEN / Unknown 03/03/2016 6:10 EST 03/03/2016 6:42 EST Shiraz Santana MD CHEMISTRY & BLOOD GA S ORDERABLES Performing Organization Address [place]/[facility] de Phone Number [facility] [address] [place] [address] * (ABNORMAL) HEMAGRAM (03/02/2016 12:35 EDT) WBC 9.54 4.0 - 12.4 K/cmm 03/02/2016 12:54 [facility] RBC 3.62(L) 3.86 - 5.04 M/cmm 03/02/2016 12:54 [facility] Hemoglobin 11.0(L) 11.6 - 15.2 gm/dl 03/02/2016 12:54 [facility] HCT 32.4(L) 34.9 - 44.4 % 03/02/2016 12:54 [facility] MCV 90 81 - 98 fl 03/02/2016 12:54 [facility] MCH 30.4 26.7 - 33.3 pg 03/02/2016 12:54 [facility] MCHC 34.0 32.1 - 35.9 gm/dl 03/02/2016 12:54 [facility] RDW-CV 13.0 11.7 - 14.6 % 03/02/2016 12:54 [facility] RDW-SD 42.5 37.6 - 50.3 fl 03/02/2016 12:54 [facility] PLT 111(L) 141 - 377 K/cmm 03/02/2016 12:54 [facility] MPV 8.5(L) 9.5 - 12.7 fl 03/02/2016 12:54 [facility] Blood specimen (specimen) BLOOD SPECIMEN / Unknown 03/02/2016 12:35 EDT 03/02/2016 12:49 EDT Shiraz Santana MD HEMATOLOGY & PF4 ORD ERABLES [facility] [address] [place] [address] * (ABNORMAL) HEMAGRAM AND DIFFERENTIAL (03/02/2016 6:10 EDT) WBC 10.54 4.0 - 12.4 K/cmm 03/02/2016 7:13 [facility] RBC 3.62(L) 3.86 - 5.04 M/cmm 03/02/2016 7:13 [facility] Hemoglobin 11.0(L) 11.6 - 15.2 gm/dl 03/02/2016 7:13 [facility] HCT 32.2(L) 34.9 - 44.4 % 03/02/2016 7:13 [facility] MCV 89 81 - 98 fl 03/02/2016 7:13 [facility] MCH 30.4 26.7 - 33.3 pg 03/02/2016 7:13 [facility] MCHC 34.2 32.1 - 35.9 gm/dl 03/02/2016 7:13 [facility] RDW-CV 13.1 11.7 - 14.6 % 03/02/2016 7:13 [facility] RDW-SD 42.8 37.6 - 50.3 fl 03/02/2016 7:13 [facility] PLT 136(L) 141 - 377 K/cmm 03/02/2016 7:13 [facility] MPV 9.0(L) 9.5 - 12.7 fl 03/02/2016 7:13 [facility] Neutrophils 54.0 % 03/02/2016 15:24 [facility] % Bands 22.0 % 03/02/2016 15:24 [facility] Lymphocytes 15.0 % 03/02/2016 15:24 [facility] Monocytes 3.0 % 03/02/2016 15:24 [facility] Eosinophils 3.0 % 03/02/2016 15:24 [facility] % Metamyelocytes 3.0 % 03/02/20 16 15:24 [facility] ABS Neutrophils 5.68 2.20 - 8.85 K/cmm 03/02/2016 15:24 [facility] ABS Bands 2.32 K/cmm 03/02/2016 15:24 [facility] ABS Lymphs 1.58 1.09 - 3.30 K/cmm 03/02/2016 15:24 [facility] ABS Monocytes 0.32 0.1 - 0.8 K/cmm 03/02/2016 15:24 [facility] ABS Eosinophils 0.32 0.03 - 0.61 K/cmm 03/02/2016 15:24 [facility] ABS Metamyelocytes 0.32 K/cmm 03/02/2016 15:24 [facility] Differential Comment Rev'd by Pathologist 03/02/2016 15:24 [facility] Toxic Granulation Present 016 15:24 [facility] Vacuolization Present 03/02/2016 15:24 [facility] Type of Diff: Manual 03/02/2016 15:24 [facility] Blood specimen (specimen) BLOOD SPECIMEN / Unknown 03/02/2016 6:10 EDT 03/02/2016 6:33 EDT Gale BeauchampProgressive Book Club PA-C PACKAGES & DNA PROBE ORDERABLES Performing Organization Address [facility] de Phone Number [facility] [address] [place] [address] * (ABNORMAL) CREATININE (03/02/2016 6:10 EDT) Creatinine 1.82(H) 0.52 - 1.04 mg/dl 03/02/2016 7:21 EDT [facility] GFR, Calculated 33(L) >60 ml/min/1.7 3m2 03/02/2016 7:21 EDT [facility] Comment: eGFR calculated using CKD-EPI equation for non Americans. Multiply eGFR by 1.16 for Americans. Blood specimen (specimen) BLOOD SPECIMEN / Unknown 03/02/2016 6:10 EDT 03/02/2016 6:33 EDT Gale Ruff [employer] PA-C CHEMISTRY & BLO OD GAS ORDERABLES Performing Organization Address [facility] de Phone Number [facility] [address] [place] [address] * (ABNORMAL) ELECTROLYTES (03/02/2016 6:10 EDT) Sodium 130(L) 136 - 145 mEq/L 03/02/2016 7:38 EDT [facility] Potassium 4.5 3.5 - 5.0 mEq/L 03/02/2016 7:21 EDT [facility] Chloride 95(L) 96 - 110 mEq/L 03/02/2016 7:21 EDT [facility] CO2 23 22 - 32 mEq/L 03/02/2016 7:21 EDT [facility] Comment:Note new reference martha dominguez 02/13/16 Blood specimen (specimen) BLOOD SPECIMEN / Unknown 03/02/2016 6:10 EDT 03/02/2016 6:33 EDT Gale Ruff Stampfl PA-C CHEMISTRY & BLO OD GAS ORDERABLES Performing Organization Address City/[facility]/ZIP Co de Phone Number [facility] [address] [place] [address] * (ABNORMAL) HEMAGRAM (03/01/2016 10:00 EDT) WBC 8.28 4.0 - 12.4 K/cmm 03/01/2016 11:15 EDT [facility] RBC 4.73 3.86 - 5.04 M/cmm 03/01/2016 11:15 EDT [facility] Hemoglobin 14.2 11.6 - 15.2 gm/dl 03/01/2016 11:15 T [facility] HCT 42.5 34.9 - 44.4 % 03/01/2016 11:15 [facility] MCV 90 81 - 98 fl 03/01/2016 11:15 [facility] MCH 30.0 26.7 - 33.3 pg 03/01/2016 11:15 [facility] MCHC 33.4 32.1 - 35.9 gm/dl 03/01/2016 11:15 [facility] RDW-CV 12.5 11.7 - 14.6 % 03/01/2016 11:15 [facility] RDW-SD 41.3 37.6 - 50.3 fl 03/01/2016 11:15 T [facility] PLT 170 141 - 377 K/cmm 03/01/2016 11:15 [facility] MPV 9.0(L) 9.5 - 12.7 fl 03/01/2016 11:15 T [facility] Blood specimen (specimen) BLOOD SPECIMEN / Unknown 03/01/2016 10:00 EDT 03/01/2016 10:59 EDT Shiraz Santana MD HEMATOLOGY & PF4 ORD ERABLES [facility] [address] [place] [address] * BACTERIAL CULTURE, BLOOD (03/01/2016 7:23 EDT) Result No growth 03/06/2016 6:59 [facility] Blood specimen (specimen) BLOOD SPECIMEN / Unknown 03/01/2016 7:23 EDT 03/01/2016 8:23 EDT Comment:Left Arm Gale A Kaylynn SZYMANSKI MICROBIOLOGY - GENERAL ORDERABLES [facility] [address] [place] [address] * BACTERIAL CULTURE, BLOOD (03/01/2016 7:23 EDT) Result ENTEROBACTER CLOACAE COMPLEX Isolated in one bottle. First detected at: 17 hours. 03/03/2016 10:49 [facility] Result (Note) Specimen tested for 8 gram negative organism identification targets and 6 antibiotic resistance determinant targets, by micro array technology. 03/03/2016 10:49 [facility] Blood specimen (specimen) BLOOD SPECIMEN / Unknown 03/01/2016 7:23 EDT 03/01/2016 8:22 EDT Comment:Left~Antecubital Narrative Organism Antibiotic Method Susceptibility Enterobacter cloacae complex isolated in one bottle. first detected at: 17 hours. Gentamicin SUSCEPTIBILITY ([place]) <=1: Susceptible Enterobacter cloacae complex isolated in one bottle. first detected at: 17 hours. Tobramycin SUSCEPTIBILITY ([place]) <=1: Susceptible Enterobacter cloacae complex isolated in one bottle. first detected at: 17 hours. Amikacin SUSCEPTIBILITY ([place]) <=2: Susceptible Enterobacter cloacae complex isolated in one bottle. first detected at: 17 hours. Ceftriaxone SUSCEPTIBILITY ([place]) >=64: Resistant Enterobacter cloacae complex isolated in one bottle. first detected at: 17 hours. Trimethoprim-Sulfamet hoxazole SUSCEPTIBILITY ([place]) >=320: Resistant Enterobacter cloacae complex isolated in one bottle. first detected at: 17 hours. Ciprofloxacin SUSCEPTIBILITY ([place]) <=0.25: Susceptible Enterobacter cloacae complex isolated in one bottle. first detected at: 17 hours. Ceftazidime SUSCEPTIBILITY ([place]IA) >=64: Resistant Enterobacter cloacae complex isolated in one bottle. first detected at: 17 hours. Meropenem SUSCEPTIBILITY ([place]) <=0.25: Susceptible Enterobacter cloacae complex isolated in one bottle. first detected at: 17 hours. Ertapenem ETEST Intermediate Gale Chaidez PA-C MICROBIOLOGY - GENERAL ORDERABLES [facility] [address] [place] [address] * CT CHEST W CONTRAST (PE) PROTOCOL (03/01/2016 6:55 EDT) Anatomical Region Laterality Modality Other 03/01/2016 6:55 EDT 03/01/2016 8:52 EDT Narrative 03/01/2016 8:[address] CHEST W CONTRAST (PE) PROTOCOL ??03/01/2016 6:55 AM Clinical History/Comments: fever, tachycardia, O2 req, fam history of PE s/p L percutaneous nephrolithotomy Technique: A contrast-enhanced helical CT acquisition of the chest from apices through the lung bases was performed with a reconstructed slice thickness of 0.9 mm with overlapping 0.45 mm intervals following the intravenous administration of 75-100 cc of 370 mg% nonionic contrast injected at a rate of 4-5 cc/second. ??A small test bolus was used for image acquisition. Scans were reviewed on a dedicated PACS workstation for analysis. Comparison: Chest radiograph from 02/29/2016.. Findings: Opacification of the pulmonary vasculature is fair. No acute or chronic emboli are seen within the pulmonary arterial vasculature. Lower neck: No abnormalities. Chest wall soft tissues: There is a fluid collection deep to the lower portion of the latissimus dorsi muscle on the left lower chest wall/upper abdominal flank. Mediastinum and amie: There are are enlarged mediastinal and hilar lymph nodes, symmetrically distributed and noncalcified. ? Heart and mediastinal vasculature: ??No abnormalities. Large airways: ??No abnormalities. Lungs: ??There is subsegmental and segmental atelectasis throughout portions of the right and left lower lobe with overall low lung inflation. The lungs otherwise are clear except for atelectasis within the lingula. Pleura: No abnormalities. Upper abdomen (limited to upper abdomen, not optimized for abdominal imaging): A separate CT of the abdomen or abdomen and pelvis was performed on the same date. ??Please see that report. Bones: ??No significant abnormalities. Impression: 1. No evidence of pulmonary embolism. 2. Dependent atelectasis within both lower lobes. 3. Enlarged mediastinal and hilar lymph nodes. This pattern of lymph node enlargement is most typically seen with sarcoidosis particularly if the patient is asymptomatic. Consider pulmonary medicine referral to assess for other clinical manifestations of sarcoidosis (hypercalcemia, elevated FRANK level, ocular or skin abnormalities, etc.). Depending upon the clinical scenario, biopsy may not be necessary to exclude malignancy or infection. 4. Fluid collection in the left lower left chest wall/upper abdominal flank deep to the latissimus dorsi muscle likely related to prior nephrostomy. I have personally reviewed the images and the above interpretation and agree with the findings. Procedure Note Kervin Perez MD - 03/01/2016 CT CHEST W CONTRAST (PE) PROTOCOL 03/01/2016 6:55 AM Clinical History/Comments: fever, tachycardia, O2 req, fam history of PE s/p L percutaneous nephrolithotomy Technique: A contrast-enhanced helical CT acquisition of the chest from apices through the lung bases was performed with a reconstructed slice thickness of 0.9 mm with overlapping 0.45 mm intervals following the intravenous administration of 75-100 cc of 370 mg% nonionic contrast injected at a rate of 4-5 cc/second. A small test bolus was used for image acquisition. Scans were reviewed on a dedicated PACS workstation for analysis. Comparison: Chest radiograph from 02/29/2016.. Findings: Opacification of the pulmonary vasculature is fair. No acute or chronic emboli are seen within the pulmonary arterial vasculature. Lower neck: No abnormalities. Chest wall soft tissues: There is a fluid collection deep to the lower portion of the latissimus dorsi muscle on the left lower chest wall/upper abdominal flank. Mediastinum and amie: There are are enlarged mediastinal and hilar lymph nodes, symmetrically distributed and noncalcified. Heart and mediastinal vasculature: No abnormalities. Large airways: No abnormalities. Lungs: There is subsegmental and segmental atelectasis throughout portions of the right and left lower lobe with overall low lung inflation. The lungs otherwise are clear except for atelectasis within the lingula. Pleura: No abnormalities. Upper abdomen (limited to upper abdomen, not optimized for abdominal imaging): A separate CT of the abdomen or abdomen and pelvis was performed on the same date. Please see that report. Bones: No significant abnormalities. Impression: 1. No evidence of pulmonary embolism. 2. Dependent atelectasis within both lower lobes. 3. Enlarged mediastinal and hilar lymph nodes. This pattern of lymph node enlargement is most typically seen with sarcoidosis particularly if the patient is asymptomatic. Consider pulmonary medicine referral to assess for other clinical manifestations of sarcoidosis (hypercalcemia, elevated FRANK level, ocular or skin abnormalities, etc.). Depending upon the clinical scenario, biopsy may not be necessary to exclude malignancy or infection. 4. Fluid collection in the left lower left chest wall/upper abdominal flank deep to the latissimus dorsi muscle likely related to prior nephrostomy. I have personally reviewed the images and the above interpretation and agree with the findings. Cuong Oneill MD G CT ORDERABLES * CT RENAL COLIC (03/01/2016 6:55 EDT) Anatomical Region Laterality Modality Other 03/01/2016 6:55 EDT 03/01/2016 10:38 EDT Narrative 03/01/2016 10:[address] RENAL COLIC ??03/01/2016 6:55 AM Signs and Symptoms/Comments: ?? Kidney Stone, pt s/p L PCNL check for residual stones Technique: Axial CT images obtained from abdomen immediately superior to level of kidneys through the pelvis without administration of contrast of any kind. Sagittal and coronal reformats generated. Comparison: CT renal colic from 01/03/2016. Findings: Kidneys and ureters: On the right, there is a right ureteral stent with the tip of the proximal pigtail is within the collecting system of the lower pole of the right kidney. Its distal pigtail is within the urinary bladder. There are several small calcified fragments identified the right kidney within the upper and lower pole. On the left, there is a left ureteral stent with the proximal pigtail curled within the proximal left ureter and the distal pigtail within the urinary bladder. Residual faint calcification is identified within the midportion of the left kidney. There is a 3 mm nonobstructing calculus within the upper pole of the left kidney. There are a few foci of air identified left renal collecting system including the left renal pelvis. Mild hydronephrosis particularly involving the upper pole is unchanged compared to prior study. There is moderate left perinephric and periureteral fat stranding. There is a small amount of perinephric hyperdense fluid and a larger amount of near water attenuation paranephric fluid with a few small foci of air noted tracking along Gerota's fascia on the left. Hypodense fluid is also noted to track along the left paracolic gutter and adjacent to the spleen. Bladder: There is a Ashby catheter balloon in appropriate position within the decompressed urinary bladder. Expected intravesicular air is identified. Uterus, adnexa: There is an intrauterine device identified within the uterus. There is a right adnexal cyst which has decreased in size since prior study. Included lung bases: Linear atelectasis is present within both lower lobes. Unenhanced liver and spleen, as far as included: The liver and spleen are normal aside from a small amount of perisplenic fluid as described above.. Gallbladder, pancreas adrenal glands: The gallbladder is distended without CT evidence for acute cholecystitis. The pancreas and adrenal glands are normal. Bowel: There is no evidence of bowel obstruction or bowel wall edema. Peritoneal cavity: Hypodense mass/ fluid collection is noted anterior to the right psoas muscle unchanged in size and appearance from prior study during 4.7 x 3.4 cm. As described above, air and fluid is noted tracking along the Gerota's fascia on the left. Hyperdense fluid is also noted tracking along the left paracolic gutter. Abdominal wall: There is a near water attenuation collection deep to the left latissimus dorsi muscle measuring 11.2 x 8.4 x 3.5 cm. There is body wall edema, especially left flank.. Lymphovascular: There are no pathologically enlarged lymph nodes identified. The vascular structures are normal. Musculoskeletal: There is a vertebral hemangioma the L2 level. Impression: 1. Interval bilateral stent placement, proximal end of left stent terminates proximal ureter. Small left para nephric and collecting system gas. No significant hydronephrosis. Reduced stone burden. 2. Low-attenuation fluid left perinephric space, left flank predominantly low-attenuation collection. May represent developing urinoma. If desired, can correlate with delayed postcontrast intravenous-enhanced CT. 3. Small left perinephric fluid hematoma. 4. Decreased size of right adnexal cyst. 5. Multilocular 5 cm cyst anterior to right psoas, stable, likely benign finding such as mesenteric cyst. 6. Small bilateral pleural effusions, bibasilar atelectasis. I have personally reviewed the images and the above interpretation and agree with the findings. Procedure Note Cuong Raygoza MD - 03/01/2016 CT RENAL COLIC 03/01/2016 6:55 AM Signs and Symptoms/Comments: Kidney Stone, pt s/p L PCNL check for residual stones Technique: Axial CT images obtained from abdomen immediately superior to level of kidneys through the pelvis without administration of contrast of any kind. Sagittal and coronal reformats generated. Comparison: CT renal colic from 01/03/2016. Findings: Kidneys and ureters: On the right, there is a right ureteral stent with the tip of the proximal pigtail is within the collecting system of the lower pole of the right kidney. Its distal pigtail is within the urinary bladder. There are several small calcified fragments identified the right kidney within the upper and lower pole. On the left, there is a left ureteral stent with the proximal pigtail curled within the proximal left ureter and the distal pigtail within the urinary bladder. Residual faint calcification is identified within the midportion of the left kidney. There is a 3 mm nonobstructing calculus within the upper pole of the left kidney. There are a few foci of air identified left renal collecting system including the left renal pelvis. Mild hydronephrosis particularly involving the upper pole is unchanged compared to prior study. There is moderate left perinephric and periureteral fat stranding. There is a small amount of perinephric hyperdense fluid and a larger amount of near water attenuation paranephric fluid with a few small foci of air noted tracking along Gerota's fascia on the left. Hypodense fluid is also noted to track along the left paracolic gutter and adjacent to the spleen. Bladder: There is a Ashby catheter balloon in appropriate position within the decompressed urinary bladder. Expected intravesicular air is identified. Uterus, adnexa: There is an intrauterine device identified within the uterus. There is a right adnexal cyst which has decreased in size since prior study. Included lung bases: Linear atelectasis is present within both lower lobes. Unenhanced liver and spleen, as far as included: The liver and spleen are normal aside from a small amount of perisplenic fluid as described above.. Gallbladder, pancreas adrenal glands: The gallbladder is distended without CT evidence for acute cholecystitis. The pancreas and adrenal glands are normal. Bowel: There is no evidence of bowel obstruction or bowel wall edema. Peritoneal cavity: Hypodense mass/ fluid collection is noted anterior to the right psoas muscle unchanged in size and appearance from prior study during 4.7 x 3.4 cm. As described above, air and fluid is noted tracking along the Gerota's fascia on the left. Hyperdense fluid is also noted tracking along the left paracolic gutter. Abdominal wall: There is a near water attenuation collection deep to the left latissimus dorsi muscle measuring 11.2 x 8.4 x 3.5 cm. There is body wall edema, especially left flank.. Lymphovascular: There are no pathologically enlarged lymph nodes identified. The vascular structures are normal. Musculoskeletal: There is a vertebral hemangioma the L2 level. Impression: 1. Interval bilateral stent placement, proximal end of left stent terminates proximal ureter. Small left para nephric and collecting system gas. No significant hydronephrosis. Reduced stone burden. 2. Low-attenuation fluid left perinephric space, left flank predominantly low-attenuation collection. May represent developing urinoma. If desired, can correlate with delayed postcontrast intravenous-enhanced CT. 3. Small left perinephric fluid hematoma. 4. Decreased size of right adnexal cyst. 5. Multilocular 5 cm cyst anterior to right psoas, stable, likely benign finding such as mesenteric cyst. 6. Small bilateral pleural effusions, bibasilar atelectasis. I have personally reviewed the images and the above interpretation and agree with the findings. Shiraz Santana MD IMG CT ORDERABLES * (ABNORMAL) URINE MICROSCOPIC (03/01/2016 6:45 EDT) WBC, UA 5 to 10 0 - 5 /HPF 03/01/2016 7:55 EDT [facility] RBC, UA >50 0 - 5 /HPF 03/01/2016 7:55 EDT [facility] Squam Epithel, UA Few(A) None seen /HPF 03/01/2016 7:55 EDT [facility] Renal Epithel, UA None seen None seen /HPF 03/01/2016 7:55 EDT [facility] Bacteria, UA Rare(A) None seen /HPF 03/01/2016 7:55 EDT [facility] Crystals, UA None seen /HPF 03/01/2016 7:55 EDT [facility] Hyaline Casts, UA None seen /LPF 03/01/2016 7:55 EDT [facility] UA Comment Microscopic results 03/01/2016 7:55 T [facility] Comment: are unreliable on urines unrefrig >2hrs or refrig >8hrs. Mucus, UA Present 03/01/2016 7:55 EDT [facility] Additional Findings Few WBC clumps 03/01/2016 7:55 EDT [facility] URINE / Unknown 03/01/2016 6 :45 EDT 03/01/2016 7:02 EDT Gale MENDOZA-Parisa URINALYSIS MOLLY SAINZ [facility] [address] [place] [address] * BACTERIAL CULTURE, URINE (03/01/2016 6:45 EDT) Result 10,000 to 100,000 CFU/ml ENTEROBACTER CLOACAE COMPLEX 03/06/2016 11:20 [facility] Result Less than 10,000 CFU/ml Usual urogenital pedro. 03/06/2016 11:20 [facility] Result 03/06/2016 11:20 [facility] Urine specimen (specimen) URINE / Unknown 03/01/2016 6:45 EDT 03/01/2016 7:03 EDT Narrative Organism Antibiotic Method Susceptibility 10,000 to 100,000 cfu/ml enterobacter cloacae complex Gentamicin SUSCEPTIBILITY (GLORIA) <=1: Susceptible 10,000 to 100,000 cfu/ml enterobacter cloacae complex Trimethoprim-Sulfameth oxazole SUSCEPTIBILITY (GLORIA) >=320: Resistant 10,000 to 100,000 cfu/ml enterobacter cloacae complex Nitrofurantoin SUSCEPTIBILITY (GLORIA) 64: Intermediate 10,000 to 100,000 cfu/ml enterobacter cloacae complex Tobramycin SUSCEPTIBILITY (GLORIA) <=1: Susceptible 10,000 to 100,000 cfu/ml enterobacter cloacae complex Ceftriaxone SUSCEPTIBILITY (GLORIA) 32: Resistant 10,000 to 100,000 cfu/ml enterobacter cloacae complex Ciprofloxacin SUSCEPTIBILITY (GLORIA) <=0.25: Susceptible 10,000 to 100,000 cfu/ml enterobacter cloacae complex Meropenem SUSCEPTIBILITY (GLORIA) <=0.25: Susceptible 10,000 to 100,000 cfu/ml enterobacter cloacae complex Ertapenem SUSCEPTIBILITY (GLORIA) <=0.5: Susceptible 10,000 to 100,000 cfu/ml enterobacter cloacae complex Susceptibility comment SUSCEPTIBILITY (GLORIA) 10,000 to 100,000 cfu/ml enterobacter cloacae complex Susceptibility comment SUSCEPTIBILITY (GLORIA) Third generation cephalosporins, such as ceftazidime, ceftriaxone, and cefpodoxime, should be avoided for the treatment of Enterobacter species, Citrobacter species, and Serratia species regardless of in vitro susceptibility. 10,000 to 100,000 cfu/ml enterobacter cloacae complex Ertapenem ETEST Susceptible 10,000 to 100,000 cfu/ml enterobacter cloacae complex Meropenem ETEST Susceptible Gale Chaidez PA-C MICROBIOLOGY - GENERAL ORDERABLES [facility] [address] [place] [address] * (ABNORMAL) URINALYSIS WITH REFLEX MICROSCOPIC (03/01/2016 6:45 EDT) Color, UA Yellow 03/01/2016 7:55 EDT [facility] Clarity, UA Cloudy 03/01/2016 7:55 EDT [facility] Glucose, UA Neg Neg 03/01/2016 7:55 EDT [facility] Bilirubin, UA Neg Neg 03/01/2016 7:55 EDT [facility] Ketones, UA Neg Neg 03/01/2016 7:55 EDT [facility] Specific [place], Urine 1.010 1.001 - 1.035 03/01/2016 7:55 EDT [facility] Blood, UA 3+(A) Neg 03/01/2016 7:55 EDT [facility] pH, UA 6.5 4.6 - 8.0 03/01/2016 7:55 EDT [facility] Protein, UA 2+(A) Neg 03/01/2016 7:55 EDT [facility] Urobilinogen, UA 0.2 0.2 - 1.0 E.U./dl 03/01/2016 7:55 EDT [facility] Nitrite, UA Pos(A) Neg 03/01/2016 7:55 EDT [facility] Leuk Esterase 1+(A) Neg 03/01/2016 7:55 EDT [facility] UA Comment Small sample, less than 12 ml received. 03/01/2016 7:55 EDT [facility] Urine specimen (specimen) URINE / Unknown 03/01/2016 6:45 EDT 03/01/2016 7:02 EDT Gale Chaidez PA-C URINALYSIS MOLLY SAINZ [facility] [address] [place] [address] * EKG 12-LEAD (03/01/2016 5:11 EDT) 03/01/2016 5:11 EDT Narrative [facility] E[facility] - 03/18/2016 10:18 EST ? [facility] ? Test Date: ?2016-03-01 Pat Name: ? BLESSING ORTIZ ?Department: ?? SIGALA 3 ? Room: ? B328 Gender: ? F ?Aerial Sprayer: ?? [id number] : ?1970 ? Requested By: YVES GUSTAFSON W Order Number: [id number] ? Reading MD: ?? RAHAT PARDO MD ? Measurements Intervals ?[place] ? Rate: ? 126 ?P: ?45 IA: ? 147 ?QRS: ?56 QRSD: ? 90 ? T: ?12 QT: ? 281 ? QTc: ?407 ? Interpretive Statements SINUS TACHYCARDIA NONSPECIFIC T-WAVE ABNORMALITY I reviewed the tracing and have either agreed or edited the findings in this report. Electronically Signed On 03-18-16 10:18:27 EST by RAHAT PARDO MD. 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 Electronically Signed On 03-18-16 10:18:27 EST by RAHAT CULVER. Cuong Oneill MD CARDIAC ECG ORDERABL ES Performing Organization Address City/[facility]/ZIP Co de Phone Number [facility] EKG * (ABNORMAL) SCREENING GLUCOSE (03/01/2016 3:45 EDT) Glucose, Screening 134(H) 70 - 100 mg/dl 03/01/2016 4:37 EDT [facility] Blood specimen (specimen) BLOOD SPECIMEN / Unknown 03/01/2016 3:45 EDT 03/01/2016 4:10 EDT Shiraz Santana MD CHEMISTRY & BLOOD GA S ORDERABLES [facility] [address] [place] [address] * (ABNORMAL) CREATININE (03/01/2016 3:45 EDT) Creatinine 1.13(H) 0.52 - 1.04 mg/dl 03/01/2016 4:37 EDT [facility] GFR, Calculated 59(L) >60 ml/min/1.7 3m2 03/01/2016 4:37 EDT [facility] Comment: eGFR calculated using CKD-EPI equation for non Americans. Multiply eGFR by 1.16 for Americans. Blood specimen (specimen) BLOOD SPECIMEN / Unknown 03/01/2016 3:45 EDT 03/01/2016 4:10 EDT Shiraz Santana MD CHEMISTRY & BLOOD GA S ORDERABLES Performing Organization Address [facility] Co de Phone Number [facility] [address] [place] [address] * BUN (03/01/2016 3:45 EDT) BUN 12 10 - 26 mg/dl 03/01/2016 4:37 EDT [facility] Blood specimen (specimen) BLOOD SPECIMEN / Unknown 03/01/2016 3:45 EDT 03/01/2016 4:10 EDT Shiraz Santana MD CHEMISTRY & BLOOD GA S ORDERABLES Performing Organization Address [facility] Co de Phone Number [facility] [address] [place] [address] * ELECTROLYTES (03/01/2016 3:45 EDT) Sodium 141 136 - 145 mEq/L 03/01/2016 4:37 EDT [facility] Potassium 4.6 3.5 - 5.0 mEq/L 03/01/2016 4:37 EDT [facility] Chloride 99 96 - 110 mEq/L 03/01/2016 4:37 EDT [facility] CO2 26 22 - 32 mEq/L 03/01/2016 4:37 EDT [facility] Comment:Note new reference r alberto 02/13/16 Blood specimen (specimen) BLOOD SPECIMEN / Unknown 03/01/2016 3:45 EDT 03/01/2016 4:10 EDT Shiraz Santana MD CHEMISTRY & BLOOD GA S ORDERABLES Performing Organization Address [facility] Co de Phone Number [facility] [address] [place] [address] * (ABNORMAL) HEMAGRAM (03/01/2016 3:45 EDT) WBC 11.61 4.0 - 12.4 K/cmm 03/01/2016 4:15 [facility] RBC 4.59 3.86 - 5.04 M/cmm 03/01/2016 4:15 [facility] Hemoglobin 14.0 11.6 - 15.2 gm/dl 03/01/2016 4:15 [facility] HCT 41.1 34.9 - 44.4 % 03/01/2016 4:15 [facility] MCV 90 81 - 98 fl 03/01/2016 4:15 [facility] MCH 30.5 26.7 - 33.3 pg 03/01/2016 4:15 [facility] MCHC 34.1 32.1 - 35.9 gm/dl 03/01/2016 4:15 [facility] RDW-CV 12.6 11.7 - 14.6 % 03/01/2016 4:15 [facility] RDW-SD 41.2 37.6 - 50.3 fl 03/01/2016 4:15 [facility] PLT 189 141 - 377 K/cmm 03/01/2016 4:15 [facility] MPV 8.6(L) 9.5 - 12.7 fl 03/01/2016 4:15 [facility] Blood specimen (specimen) BLOOD SPECIMEN / Unknown 03/01/2016 3:45 EDT 03/01/2016 4:10 EDT Shiraz Santana MD HEMATOLOGY & PF4 ORD ERABLES [facility] [address] [place] [address] * PORTABLE CHEST 1 VIEW (02/29/2016 18:55 EDT) Anatomical Region Laterality Modality Other 02/29/2016 18:5 5 EDT 02/29/2016 19:11 EDT Narrative 02/29/2016 19:11 EDT PORTABLE CHEST 1 VIEW 02/29/2016 6:55 PM Signs and Symptoms: Kidney Stone, Pt s/p L PCNL check for pneumo Comparisons: Outside renal colic CT 01/03/2016 Findings: A portable AP view of the chest was obtained ??60 degrees upright. Lines/tubes: ??None Soft tissues and bones: No significant abnormalities. Cardiac and mediastinal contours: Normal. Lungs: There is mild indistinctness of the pulmonary vasculature. The lungs are otherwise clear. Pleura: No visible pleural abnormalities. Impression: ?? 1. ??Mild indistinctness of the pulmonary vasculature could reflect volume overload alternatively, this could relate to low lung volumes. 2. ??No pneumothorax identified on this semirecumbent radiograph. Procedure Note Ted Childress MD - 02/29/2016 PORTABLE CHEST 1 VIEW 02/29/2016 6:55 PM Signs and Symptoms: Kidney Stone, Pt s/p L PCNL check for pneumo Comparisons: Outside renal colic CT 01/03/2016 Findings: A portable AP view of the chest was obtained 60 degrees upright. Lines/tubes: None Soft tissues and bones: No significant abnormalities. Cardiac and mediastinal contours: Normal. Lungs: There is mild indistinctness of the pulmonary vasculature. The lungs are otherwise clear. Pleura: No visible pleural abnormalities. Impression: 1. Mild indistinctness of the pulmonary vasculature could reflect volume overload alternatively, this could relate to low lung volumes. 2. No pneumothorax identified on this semirecumbent radiograph. Shiraz Santana MD IMJesi DIAGNOSTIC IMAGI NG ORDERABLES * RETROGRADE UROGRAM (02/29/2016 18:30 EDT) Anatomical Region Laterality Modality Other 02/29/2016 18:3 0 EDT Narrative 02/29/2016 18:30 EDT Non Reportable Exam Procedure Note GREEN COFFEE BLENDER, IMAGING - 02/29/2016 Non Reportable Exam Rajesh KENYON FLUOROSCO PY ORDERABLES * KIDNEY STONE ANALYSIS (02/29/2016 16:20 EDT) Source LEFT KIDNEY STONE 02/29/2016 20:29 EDT [facility] 1st Constituent 70% Calcium oxalate monohydrate 03/05/2016 12:44 [facility] 2nd Constituent 30% Calcium phosphate (apatite) 03/05/2016 12:44 [facility] Comment: Performed by: [facility]: [address], [place] [address], Lab Dir: Danny Salter II, M.D., Ph.D. Specimen of unknown material (specimen) TOPOGRAPHY UNKNOWN / Unknown 02/29/2016 16:20 EDT 02/29/2016 20:29 EDT Rajesh Ibarra MD GEN LAB UNIT COLLECT ORDERABLES Performing Organization Address City/[facility] Co de Phone Number [facility] [address] [place] [address] * TEST, URINE (02/29/2016 12:25 EDT) Result- Test, Ur Neg Neg 02/29/2016 14:06 EDT [facility] Comment: NOTE: False negative results may occur in women who are beyond 5-8 weeks gestation. Diagnosis of should be based on a correlation of test results with typical clinical signs and symptoms. 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, with multiple drug resistance Nephrolithiasis Calculus of kidney Bacteremia due to Gram-negative bacteria Bacteremia Pyelonephritis Pyelonephritis, unspecified Hx of allergy to antibiotic agent Personal history of allergy to other antibiotic agent Nephrolithiasis Calculus of kidney Tachycardia Tachycardia, unspecified 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, with multiple drug resistance Fever Fever, unspecified Sepsis Unspecified septicemia Bacteremia UTI (urinary tract infection) Urinary tract infection, site not specified Nausea Nausea alone Chills Chills (without fever) Left flank pain Abdominal pain, unspecified site documented in this encounter Administered Medications Inactive Administered Medications - up to 3 most recent administrations Medication Order MAR Action Action Date Dose Rate Site acetaminophen (TYLENOL) suppository 650 mg 650 mg, rectal, EVERY 4 HOURS PRN, Starting on Danette 02/29/16 at 2137, Until Fri03/06/16 at 1915, Pain, Routine, On Unit acetaminophen (TYLENOL) tablet 650 mg 650 mg, oral, PRN, 2 doses, Starting on Danette 02/29/16 at 1724, Until Danette 02/29/16 at 2133, Pain, Routine, Recovery (only) Given 02/29/2016 18:41 EDT 650 mg acetaminophen (TYLENOL) tablet 650 mg 650 mg, oral, EVERY 4 HOURS PRN, Starting on Danette 02/29/16 at 2137, Until Fri03/06/16 at 1915, Pain, Routine, On Unit Given 03/06/2016 9:43 EST 325 mg Given 03/05/2016 20:35 EST 650 mg Given 03/05/2016 9:08 EST 650 mg amitriptyline (ELAVIL) tablet 25 mg 25 mg, oral, DAILY, First dose on Danette 02/29/16 at 2145, Until Discontinued, Routine Given 03/05/2016 20:35 EST 25 mg Given 03/04/2016 20:45 EST 25 mg Given 03/03/2016 20:09 EST 25 mg ceFAZolin (ANCEF) 2,000 mg in sodium chloride 0.9% 50 mL IVPB 2,000 mg, intravenous, Administer over 30 Minutes, EVERY 8 HOURS, 3 doses, First dose on Danette 02/29/16 at 2200, Last dose on Fri03/01/16 at 1600, Routine, On Unit Given 03/01/2016 0:06 EDT 2,000 mg ceFAZolin (ANCEF) syringe 2 g 2 g, intravenous, Administer over 10 Minutes, PRE-OP ONCE, 1 dose, On Danette 02/29/16 at 1400, Routine, Pre-Op DOS Rx Approved Given by Other 02/29/2016 15:30 EDT 2 g ciprofloxacin (CIPRO) IVPB 400 mg 400 mg, intravenous, Administer over 60 Minutes, EVERY 12 HOURS, 14 doses, First dose on Fri03/04/16 at 2100, Last dose on Fri03/11/16 at 0900, Controlled antibiotic: has ID approved? Yes, Routine Given 03/06/2016 10:59 EST 400 mg Given 03/05/2016 20:35 EST 400 mg Given 03/05/2016 9:59 EST 400 mg ciprofloxacin HCl (CIPRO) tablet 750 mg 750 mg, oral, EVERY 12 HOURS, 14 doses, First dose on Fri03/06/16 at 1900, Last dose on Fri03/13/16 at 0700, Controlled antibiotic: has ID approved? Yes, Routine docusate sodium (COLACE) capsule 100 mg 100 mg, oral, 2 TIMES DAILY, First dose on Danette 02/29/16 at 2200, Until Discontinued, Routine, On Unit Given 03/06/2016 9:43 EST 100 mg Given 03/05/2016 20:35 EST 100 mg Given 03/05/2016 9:07 EST 100 mg ertapenem (INVANZ) 1,000 mg in sodium chloride (NS) 0.9 % 50 mL IVPB 1,000 mg, intravenous, Administer over 30 Minutes, DAILY, 7 doses, First dose on Fri03/01/16 at 0900, Last dose on Fri03/07/16 at 0900, Controlled antibiotic: has ID approved? Yes, STAT Given 03/06/2016 9:53 EST 1,000 mg Given 03/05/2016 9:03 EST 1,000 mg Given 03/04/2016 8:44 EST 1,000 mg fentaNYL citrate (PF) 50 mcg/mL injection 25-100 mcg 25-100 mcg, intravenous, EVERY 5 MIN PRN, Starting on Danette 02/29/16 at 1724, Until Danette 02/29/16 at 2133, Pain, Routine, Recovery (only) Given 02/29/2016 1 9:03 EDT 25 mcg Given 02/29/2016 18:55 EDT 25 mcg Given 02/29/2016 18:40 EDT 50 mcg gabapentin (NEURONTIN) capsule 400 mg 400 mg, oral, 3 TIMES DAILY, First dose on Danette 02/29/16 at 2200, Until Discontinued, Routine Given 03/06/2016 14:05 EST 4 00 mg Given 03/06/2016 9:42 EST 400 mg Given 03/05/2016 20:35 EST 400 mg heparin injection 5,000 Units 5,000 Units, subcutaneous, EVERY 12 HOURS, First dose on Fri03/01/16 at 0900, Until Discontinued, Routine, On Unit Given 03/06/2016 9:43 EST 5,000 Units Abdomina l Tissue Given 03/05/2016 20:34 EST 5,000 Units Given 03/05/2016 9:07 EST 5,000 Units Abdo mandy Tissue HYDROmorphone (DILAUDID) tablet 2-4 mg 2-4 mg, oral, EVERY 3 HOURS PRN, Starting on Danette 02/29/16 at 1823, Until 03/06/16 at 1915, Pain, Routine, On Unit Given 03/04/2016 7:32 EST 2 mg Given 03/02/2016 5:51 EDT 2 mg Given 03/01/2016 8:28 EDT 2 mg HYDROmorphone (PF) (DILAUDID) 1 mg/mL injection 0.2-1 mg 0.2-1 mg, intravenous, EVERY 10 MINUTES PRN, Starting on Danette 02/29/16 at 1724, Until Danette 02/29/16 at 2133, Pain, Routine, Recovery (only) Given 02/29/2016 19:03 EDT 0.3 mg lactated ringers (LR) infusion 30 mL/hr, intravenous, CONTINUOUS, Starting on Danette 02/29/16 at 1400, Until Danette 02/29/16 at 2137, Routine, Pre-Op DOS Rx Approved New Bag 02/29/2016 14:07 EDT 30 mL/hr 30 mL/hr lactated ringers (LR) infusion at 75 mL/hr, intravenous, CONTINUOUS, Starting on Danette 02/29/16 at 1745, Until Danette 02/29/16 at 2133, Routine, Recovery (only) Rate Documented 02/29/2016 18:09 EDT 75 mL/hr lactated ringers (LR) infusion at 125 mL/hr, intravenous, CONTINUOUS, Starting on Danette 02/29/16 at 1845, Until 03/05/16 at 0707, Routine Rate Documented 03/04/2016 18:00 EST 125 m L/hr Rate Documented 03/04/2016 13:28 EST 125 mL/hr Rate Documented 03/04/2016 7:21 EST 125 mL/hr lactated ringers BOLUS 1,000 mL 1,000 mL, intravenous, NOW X1, 1 dose, On Fri03/01/16 at 0845, Routine Given 03/01/2016 8:31 EDT 1,000 mL lactated ringers BOLUS 1,000 mL 1,000 mL, intravenous, NOW X1, 1 dose, On 03/02/16 at 0600, Routine Given 03/02/2016 5:50 EDT 1,000 mL lactated ringers BOLUS 1,000 mL 1,000 mL, intravenous, NOW X1, 1 dose, On 03/02/16 at 1030, Routine Given 03/02/2016 10:36 EDT 1,000 mL lactated ringers BOLUS 500 mL 500 mL, intravenous, NOW X1, 1 dose, On Fri03/01/16 at 1615, Routine Given 03/01/2016 16:10 EDT 500 mL metoCLOPramide (REGLAN) injection 10 mg 10 mg, intravenous, NOW X1, 1 dose, On Fri02/29/16 at 2045, STAT Given 02/29/2016 20:24 EDT 10 mg metoprolol XL (TOPROL-XL) tablet 25 mg 25 mg, oral, DAILY, First dose on Fri03/01/16 at 0900, Until Discontinued Given 03/06/2016 9:43 EST 25 mg Given 03/05/2016 9:11 EST 25 mg Given 03/04/2016 8:44 EST 25 mg ondansetron (PF) (ZOFRAN) injection 2 mg 2 mg, intravenous, PRN, 1 dose, Starting on Danette 02/29/16 at 1724, Until Danette 02/29/16 at 2000, Nausea, Vomiting, Routine, Recovery (only) Given 02/29/2016 20:00 EDT 2 m g ondansetron (PF) (ZOFRAN) injection 2-4 mg 2-4 mg, intravenous, EVERY 8 HOURS PRN, Starting on Danette 02/29/16 at 2137, Until 03/06/16 at 1915, Nausea, Routine, On Unit Given 03/01/2016 20:51 EDT 4 mg Given 03/01/2016 11:17 EDT 4 mg Given 03/01/2016 5:21 EDT 4 mg oxybutynin (DITROPAN) tablet 5 mg 5 mg, oral, 3 TIMES DAILY PRN, Starting on Danette 02/29/16 at 1823, Until Fri03/06/16 at 1915, Other, bladder spasm, Routine, On Unit Given 03/01/2016 0:40 EDT 5 mg Given 02/29/2016 18:41 EDT 5 mg oxyCODONE (ROXICODONE) immediate release tablet 5 mg 5 mg, oral, PRN, 2 doses, Starting on Fri02/29/16 at 1724, Until Fri02/29/16 at 2133, Pain, Routine, Recovery (only) Given 02/29/2016 18:41 EDT 5 mg pantoprazole (PROTONIX) tablet 40 mg 40 mg, oral, DAILY, First dose on Fri03/01/16 at 0900, Until Discontinued, Routine Given 03/06/2016 9:43 EST 40 mg Given 03/05/2016 9:08 EST 40 mg Given 03/04/2016 8:44 EST 40 mg PEG 3350-Electrolytes (MIRALAX) packet 17 g 17 g, oral, DAILY PRN, Starting on Fri03/03/16 at 0938, Until Fri03/06/16 at 1915, Constipation, Routine Given 03/03/2016 14:19 EST 17 g phenazopyridine (PYRIDIUM) tablet 200 mg 200 mg, oral, 3 TIMES DAILY PRN, 9 doses, Starting on Danette 02/29/16 at 1823, Until Fri03/06/16 at 1915, Pain, Routine, On Unit Given 03/06/2016 9:43 EST 200 mg Given 03/01/2016 13:35 EDT 200 mg Given 02/29/2016 18:41 EDT 200 mg piperacillin-tazobactam 4.5 g in sodium chloride (NS MBP) 0.9 % 100 mL IVPB 4.5 g, intravenous, Administer over 4 Hours, EVERY 8 HOURS, 12 doses, First dose on Fri03/01/16 at 0800, Last dose on Fri03/05/16 at 0000, Controlled antibiotic: has ID approved? No: After 10pm, Before 8am, Routine Given 03/01/2016 7:21 EDT 4.5 g promethazine (PHENERGAN) tablet 12.5-25 mg 12.5-25 mg, oral, EVERY 6 HOURS PRN, Starting on Danette 02/29/16 at 2137, Until 03/06/16 at 1915, Nausea, Routine, On Unit Given 03/01/2016 16:10 EDT 25 mg sodium chloride 0.9 % BOLUS 500 mL 500 mL, intravenous, NOW X1, 1 dose, On 03/02/16 at 2245, Routine New Bag 03/02/2016 22:35 EDT 500 mL documented in this encounter Historical Medications * This list may reflect changes made after this encounter. Medication Sig Dispensed Refills Start Date End Date pantoprazole (PROTONIX) 40 mg tablet Take 1 Tablet by mouth daily. added in this encounter Active and Recently Administered Medications Times are shown in EST. Scheduled Medication Order 03/04/2016 03/05/2016 03/06/2016 amitriptyline (ELAVIL) tablet 25 mg 25 mg, oral, DAILY, First dose on Danette 02/29/16 at 2145, Until Discontinued, Routine 2044 (Given - Provider: Ladi Irving RN) 2034 (Given - Provider: Ladi Irving RN) ciprofloxacin (CIPRO) IVPB 400 mg (CANCELED) 400 mg, intravenous, Administer over 60 Minutes, EVERY 12 HOURS, 14 doses, First dose on 03/04/16 at 2100, Last dose on Fri03/11/16 at 0900, Controlled antibiotic: has ID approved? Yes, Routine 2047 (Given - Provider: Ladi Irving RN) 0959 (Given - Provider: Catherine Garcia RN)2034 (Given - Provider: Ladi Irving RN) 1059 (Given - Provider: Catherine Garcia RN) ciprofloxacin HCl (CIPRO) tablet 750 mg 750 mg, oral, EVERY 12 HOURS, 14 doses, First dose on 03/06/16 at 1900, Last dose on Fri03/13/16 at 0700, Controlled antibiotic: has ID approved? Yes, Routine docusate sodium (COLACE) capsule 100 mg 100 mg, oral, 2 TIMES DAILY, First dose on Danette 02/29/16 at 2200, Until Discontinued, Routine, On Unit 0844 (Given - Provider: Jeanette Watts RN)2044 (Given - Provider: Ladi Irving RN) 09 (Given - Provider: Catherine Garcia RN)2034 (Given - Provider: Ladi Irving RN) 0943 (Given - Provider: Catherine Garcia RN) ertapenem (INVANZ) 1,000 mg in sodium chloride (NS) 0.9 % 50 mL IVPB (CANCELED) 1,000 mg, intravenous, Administer over 30 Minutes, DAILY, 7 doses, First dose on Fri03/01/16 at 0900, Last dose on Fri03/07/16 at 0900, Controlled antibiotic: has ID approved? Yes, STAT 0844 (Given - Provider: Jeanette Watts RN) 09 (Given - Provider: Catherine Garcia RN) 0953 (Given - Provider: Catherine Garcia RN) gabapentin (NEURONTIN) capsule 400 mg 400 mg, oral, 3 TIMES DAILY, First dose on Fri02/29/16 at 2200, Until Discontinued, Routine 0732 (Given - Provider: Jeanette Watts RN)131 (Given - Provider: Jeanette Watts RN)2044 (Given - Provider: Ladi Irving RN) 09 (Given - Provider: Catherine Garcia RN)140 (Given - Provider: Catherine Garcia RN)2034 (Given - Provider: Ladi Irving RN) 0942 (Given - Provider: Catherine Garcia RN)1405 (Given - Provider: Catherine Garcia RN) heparin injection 5,000 Units 5,000 Units, subcutaneous, EVERY 12 HOURS, First dose on Fri03/01/16 at 0900, Until Discontinued, Routine, On Unit 0844 (Given - Provider: Jeanette Watts RN)2043 (Given - Provider: Ladi Irving RN) 09 (Given - Provider: Catherine Garcia RN)2033 (Given - Provider: Ladi Irving RN) 0943 (Given - Provider: Catherine Garcia RN) metoprolol XL (TOPROL-XL) tablet 25 mg 25 mg, oral, DAILY, First dose on Fri03/01/16 at 0900, Until Discontinued 0844 (Given - Provider: Jeanette Watts RN) 0911 (Given - Provider: Catherine Garcia RN) 0943 (Given - Provider: Catherine Garcia RN) pantoprazole (PROTONIX) tablet 40 mg 40 mg, oral, DAILY, First dose on Fri03/01/16 at 0900, Until Discontinued, Routine 0844 (Given - Provider: Jeanette Watts RN) 09 (Given - Provider: Catherine Garcia RN) 0943 (Given - Provider: Catherine Garcia RN) Continuous Medication Order 03/04/2016 03/05/2016 03/06/2016 lactated ringers (LR) infusion (CANCELED) at 125 mL/hr, intravenous, CONTINUOUS, Starting on Danette 02/29/16 at 1845, Until Fri03/05/16 at 0707, Routine 0545 (New Bag - Provider: Brandyn Kumar RN)0721 (Rate Documented - Provider: Jeanette Watts RN)1328 (Rate Documented - Provider: Jeanette Watts RN)1800 (Rate Documented - Provider: Jeanette Watts RN) 0744 (Completed - Provider: Yani Esteves RN) PRN Medication Order 03/04/2016 03/05/2016 03/06/2016 acetaminophen (TYLENOL) suppository 650 mg(Linked Group 1) 650 mg, rectal, EVERY 4 HOURS PRN, Starting on Danette 02/29/16 at 2137, Until Fri03/06/16 at 1915, Pain, Routine, On Unit 0555 (See Alternative - Provider: Brandyn Kumar RN)2044 (See Alternative - Provider: Ladi Irving RN) 09 (See Alternative - Provider: Catherine Garcia RN)2034 (See Alternative - Provider: Ladi Irving RN) 0943 (See Alternative - Provider: Catherine Garcia RN) acetaminophen (TYLENOL) tablet 650 mg(Linked Group 1) 650 mg, oral, EVERY 4 HOURS PRN, Starting on Danette 02/29/16 at 2137, Until Fri03/06/16 at 1915, Pain, Routine, On Unit 0555 (Given - Provider: Brandyn Kumar RN)2044 (Given - Provider: Ladi Irving RN) 09 (Given - Provider: Catherine Garcia RN)2034 (Given - Provider: Ladi Irving RN) 0943 (Given - Provider: Catherine Garcia RN) HYDROmorphone (DILAUDID) tablet 2-4 mg 2-4 mg, oral, EVERY 3 HOURS PRN, Starting on Danette 02/29/16 at 1823, Until Fri03/06/16 at 1915, Pain, Routine, On Unit 0732 (Given - Provider: Jeanette Watts RN) HYDROmorphone (PF) (DILAUDID) 1 mg/mL injection 0.2-0.4 mg 0.2-0.4 mg, intravenous, EVERY 3 HOURS PRN, Starting on Danette 02/29/16 at 2137, Until Fri03/06/16 at 191, Pain, Routine, On Unit ondansetron (PF) (ZOFRAN) injection 2-4 mg 2-4 mg, intravenous, EVERY 8 HOURS PRN, Starting on Danette 02/29/16 at 2137, Until Fri03/06/16 at 191, Nausea, Routine, On Unit oxybutynin (DITROPAN) tablet 5 mg 5 mg, oral, 3 TIMES DAILY PRN, Starting on Danette 02/29/16 at 1823, Until Fri03/06/16 at 1915, Other, bladder spasm, Routine, On Unit PEG 3350-Electrolytes (MIRALAX) packet 17 g 17 g, oral, DAILY PRN, Starting on 03/03/16 at 0938, Until Fri03/06/16 at 1915, Constipation, Routine phenazopyridine (PYRIDIUM) tablet 200 mg 200 mg, oral, 3 TIMES DAILY PRN, 9 doses, Starting on Danette 02/29/16 at 1823, Until Fri03/06/16 at 1915, Pain, Routine, On Unit 0943 (Given - Provider: Catherine Garcia RN) promethazine (PHENERGAN) tablet 12.5-25 mg 12.5-25 mg, oral, EVERY 6 HOURS PRN, Starting on Danette 02/29/16 at 2137, Until Fri03/06/16 at 191, Nausea, Routine, On Unit Linked Groups Order Group 1: acetaminophen (TYLENOL) tablet 650 mgJump to med 650 mg, oral, EVERY 4 HOURS PRN, Starting on Danette 02/29/16 at 2137, Until Fri03/06/16 at 1915, Pain, Routine, On Unit Or acetaminophen (TYLENOL) suppository 650 mgJump to med 650 mg, rectal, EVERY 4 HOURS PRN, Starting on Danette 02/29/16 at 2137, Until 03/06/16 at 1915, Pain, Routine, On Unit documented in this encounter Orders Medications Ordered That John ht Not Have Been Administered Count Last Ordered Date First Ordered Date ciprofloxacin HCl (CIPRO) tablet 750 mg 1 1 05/06/2015 sodium chloride 0.9 % BOLUS 1,000 mL 1 08/2015 acetaminophen (TYLENOL) suppository 650 mg 1 02/29/2016 atropine 0.1 mg/mL syringe 0.5 mg 1 016 diphenhydrAMINE (BENADRYL) i njection 6.25 mg 1 02/29/2016 HYDROmorphone (PF) (DILAUDID ) 1 mg/mL injection 0.2-0.4 mg 1 02/29/2016 metoCLOPramide (REGLAN) injection 10 mg 1 1 04/30/2015 naloxone (NARCAN) injection 0.2 mg 1 2015 Diet Count Last Ordered Date First Orde red Date DISCHARGE DIET 2 03/06/2016 Nursing Count Last Ordered Date First Orde red Date ACTIVITY INSTRUCTIONS 1 03/06/2016 BATHING INSTRUCTIONS 3 03/06/2016 DRIVING INSTRUCTIONS 1 03/06/2016 WOUND CARE INSTRUCTIONS 4 03/06/2016 IV Count Last Ordered Date First Orde red Date IV REQUEST 3 03/06/2016 03/01/2016 Admission Count Last Ordered Date First Orde red Date STATUS: INPATIENT ACUTE ADMISSION 2 016 STATUS: OUTPATIENT SURGICAL OP BED/SERVICES 1 02/29/2016 Transfer Count Last Ordered Date First Orde red Date NOTIFY PPS OF DISCHARGE COMPLETE 1 03/06/20 16 UR PATIENT STATUS CHANGE 1 03/01/2016 NOTIFY PPS PATIENT ARRIVAL IN PACU 1 2015 NOTIFY PPS PATIENT TRANSFERRED OUT OF PACU 1 02/29/2016 PPS NOTIFICATION OF PATIENT ARRIVAL ON UNIT 1 02/29/2016 Discharge Count Last Ordered Date First Orde red Date DISCHARGE PATIENT 1 03/06/2016 documented in this encounter Additional Health Concerns Infection Onset Date Last Indicated Resolved Time See Plan of Care * 03/01/2016 03/01/2016 6 17:12 EST MDR-GNR Comment:IP Note: 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
--- OUTSIDE RECORDS SUMMARY | 2023-12-18 00:17 | XMS_ITS | Encounter Summary ---
Author Organization [facility] Address [address] [place] [address] Care Team Providers Care Registered Nurse Surgical Services Name Role Phone Sera Gay Tommy STEINER Primary Care Provider + Reason for Visit * Reason Onset Date Comments Medication Questions 03/15/2016 cipro Allergic Reaction 03/15/2016 hives Discuss Surgery 03/15/2016 Post-OP Follow Up 03/15/2016 Encounter Details Date Type Department Care Team ([facility] st Contact Info) Description 03/15/2016 Telephone [facility] - [facility] [address] [place] [address] Rajesh Ibarra MD [address] [place] [id number] Medication Questions (cipro); Allergic Reaction (hives); Discuss Surgery; Post-OP Follow Up Social History Tobacco Use [...] * Telephone Encounter - Noy Falcon - 03/19/2016 1102 EST Message was left for patient. Post op appointment is scheduled with Dr. Ibarra on 04/03/16 at 2:30. Pt was instructed to check in at 1:30 for an x-ray. * Telephone Encounter - Noy Falcon - 03/15/2016 1441 EST Procedure confirmed with patient. Pt was instructed to check in 3rd floor registration at 11:15 for a procedure at 1:15 on 03/18/16. Pt was instructed to have no solid food or liquids containing fats, including milk after midnight. The day of, pt can have water or other clear liquids until four hours before scheduled time of procedure. A hook up driver will be needed. * Telephone Encounter - Steffanie Mckeon RN - 03/15/[address] Ibarra pre-op cipro is okay as long as she tolerated PO cipro. * Telephone Encounter - Steffanie Mckeon RN - 03/15/2016 1146 EST Left a message for the patient to return call about cipro to make sure she tolerated it well. * Telephone Encounter - Steffanie Mckeon RN - 03/15/2016 1021 EST Spoke with the pharamcy, aware the patient has been on cipro oral in the past. Will also clarify with Dr Ibarra. * Telephone Encounter - Blessing Harding - 03/15/2016 0913 EST Pharmacy called to see if there was an alternative for pt to take other than Cipro as she has an allergy to Levofloxacin which is in the same drug category. Cipro is to be taken Friday as she has a Procedure. documented in this encounter Plan of Treatment [...] as of this encounter Care Teams Registered Nurse Surgical Services Relationship Specialty Start Date End Date Sera Gay FNP [address] [place] [address] PCP - General 09/02/13 10/31/22 documented as of this encounter
--- OUTSIDE RECORDS SUMMARY | 2023-12-18 00:17 | XMS_ITS | Encounter Summary ---
Author Organization [facility] Address [address] [place] [address] Care Team Providers Care Gantry Rigger Name Role Phone Unavailable Primary Care Provider Unavailabl e Encounter Details Date Type Department Care Team ([facility] st Contact Info) Description 02/05/2006 Results Only [facility] - Maple conversion [address] [place] [address] Rufino Gay, BAR HOST [address] [place], [place] [id number] Social History Tobacco Use Types Packs/Day Years [...] Priority Date/Time Associated Diagnosis Comments CYTOPATHOLOGY Routine 02/05/2006 0:00 EDT documented in this encounter Results * CYTOPATHOLOGY (02/05/2006 0:00 EDT) Pathology Report: CYTOPATHOLOGY REPORT Reports generated via electronic interface contain original data; however they are lacking the format of the original report. Caution should be taken when reading/interpreti ng unformatted reports. Name: ? BLESSING ORTIZ ? Accession #: ? [id number] : ? 1970 (Age: 35) ??F ?Collect Date: ? 02/05/2006 Location: ? [facility] ? Receive Date: ? 02/07/2006 Provider: ?RUFINO GAY ANP Copy to: ? Specimen/Source: ?ThinPrep Pap Test, Endocervix, processed on LamahuiPrep Imaging System, with manual evaluation Last Menstrual Period: ? 01/20/06 Other: ? HPVA - HPV testing requested if ASC-US on the current ThinPrep Pap test. ? SPECIMEN ADEQUACY ? Satisfactory for Evaluation - transformation zone component present GENERAL CATEGORIZATION ? Negative for Intraepithelial Lesion or Malignancy ? Document reviewed and electronically signed by: ? GILBERT Elkins(ASCP) ? Report Date: ??02/11/2006 15:11 End of Report [facility] 02/05/2006 02/07/2006 Rufino Gay BAR HOST PATHOLOGY [facility] [address] [place] [address] documented in this encounter Visit Diagnoses Not on filedocumented in this encounter
--- OUTSIDE RECORDS SUMMARY | 2023-12-18 00:17 | XMS_ITS | Encounter Summary ---
Author Organization [facility] Address [address] [place] [address] Care Team Providers Care Mill Helper Name Role Phone Sera Gay JATIN Primary Care Provider + Encounter Details Date Type Department Care Team (Late st Contact Info) Description 11/03/2013 Results Only [facility] Laboratory Services - [facility] [place] [place] [address] [place], [place] [id number] Rahat Mabry MD [address] [place] [address] [address] [place], [place] [id number] Social History Tobacco Use Types Packs/Day Years [...] Procedure Name Priority Date/Time Associated Diagnosis Comments PAP TEST- RESULT ONLY Routine 11/03/2013 0:00 EDT documented in this encounter Results * PAP TEST- RESULT ONLY (11/03/2013 0:00 EDT) Pathology Report: CYTOPATHOLOGY REPORT Reports generated via electronic interface contain original data; however they are lacking the format of the original report. Caution should be taken when reading/interpreti ng unformatted reports. Name: ? TERRENCE ORTIZA ? Accession #: ? [id number] ? : ? 1970 (Age: 43) ??F ?Collect Date: ? 11/03/2013 ? Location: ? [facility] ? Receive Date: ? 11/04/2013 ? Provider: RAHAT MABRY MD Copy to: ? Final Report SPECIMEN ADEQUACY ? Satisfactory for Evaluation - transformation zone component present GENERAL CATEGORIZATION ? Negative for Intraepithelial Lesion or Malignancy ?? Hormonal/Contracep tive status: Intrauterine device: Mirena Specimen/Source: ??Pap Test, Cervix/Endocervix, ThinPrep Imaging System with manual evaluation Document reviewed and electronically signed by: ? Lisa Daily, CT(ASCP) ? Report ??Date: 11/10/2013 15:43 HPV with Pap Test ? Date Ordered: ? 11/10/2013 ? Status: ?? Signed Out ?Date Complete: ? 11/12/2013 ? By: ??System Interface ? Date Reported: ? 11/12/2013 ? Interpretation RESULT: Positive for high or intermediate risk HPV. E6 OR E7 mRNA from one or more types of HPV types 16,18,31, 33,35,39,45,51,52, 56,58,59,66, and 68 is detected by airline managerial supervisor mediated amplification. High and intermediate risk HPV types are associated with most squamous intraepithelial lesions and cervical cancers. Comments Document reviewed and electronically signed by: ? System Interface ? Report date: 11/12/2013 By the signature above, the attending physician certifies that he/she has personally conducted a gross and/or microscopic examination of the described specimens and rendered or confirmed the above diagnosis. End of Report [facility] 11/03/2013 11/04/2013 Rahat Mabry MD PATHOLOGY ORDERABLES Performing Organization Address City/State/[facility] Co de Phone Number [facility] [address] [place] [address] documented in this encounter Visit Diagnoses Not on filedocumented in this encounter Care Teams Mill Helper Relationship Specialty Start Date End Date Sera Gay FNP [address] [place] [address] PCP - General 09/02/13 10/31/22 documented as of this encounter
--- OUTSIDE RECORDS SUMMARY | 2023-12-18 00:17 | XMS_ITS | Encounter Summary ---
Author Organization [facility] Address [address] [place] [address] Care Team Providers Care Meat Service Team Member Name Role Phone Sera Gay Tommy STEINER Primary Care Provider + Reason for Visit * Reason Onset Date Comments Labs Only 05/16/2016 [facility] orders Encounter Details Date Type Department Care Team ([facility] st Contact Info) Description 05/16/2016 Telephone [facility] Urology - [address] [address] Rajesh Ibarra MD [address] [place] [phone] Labs Only ([facility] orders) Social History Tobacco Use Types Packs/Day Years [...] * Telephone Encounter - Noy Falcon - 05/16/2016 1616 EST A second request was faxed to [employer]. * Telephone Encounter - Kathryn Alvarez - 05/16/2016 1243 EST Patient is supposed to be getting a [facility] prior to her next visit and she called the company tofind out why she did not receive it and they said there was not an order placed for one. Please call patient to discuss documented in this encounter Plan of Treatment [...] documented as of this encounter Care Teams Meat Service Team Member Relationship Specialty Start Date End Date Sera Gay FNP [address] [place] [address] PCP - General 09/02/13 10/31/22 documented as of this encounter
== END 2023-12-18 | disposition home or self-care (01) ==
LOC: NCHCN 23:59
PROVIDERS: PCP Nurse Practitioner Family; Visit Provider Nurse Practitioner Family
DX: E78.5 Hyperlipidemia, unspecified (principal)
CPT/HCPCS: 80053; 80061

== ENCOUNTER 2024-06-22 11:34 | Outpatient (REF) | payer MEDICARE, SELFPAY ==
[2024-06-22 19:05] LABS: ALT 21 U/L (14-59); AST 19 U/L (15-37); Albumin 4.2 g/dL (3.4-5.0); Alkaline Phosphatase 100 U/L (46-116); Anion Gap 7.5 mmol/L (3-11); BUN 18 mg/dL (7-18); Bilirubin, Total 0.46 mg/dL (0.2-1.0); CO2 30.5 mmol/L (21.0-32.0); CREATININE 1.1 mg/dL (0.55-1.02); Calculated LDL 101 mg/dL (<100); Chloride 104 mmol/L (98-107); Cholesterol 209 mg/dL (<200); Estimated GFR 60.46 (mL/min/1.73m2); Glucose 114 mg/dL (74-106); HDL Cholesterol 37 mg/dL (40-60); Sodium 142 mmol/L (136-145); Triglyceride 355 mg/dL (<150)
== END 2024-06-22 11:35 | disposition home or self-care (01) ==
LOC: NCHCN 11:34
PROVIDERS: PCP Nurse Practitioner Family; Visit Provider Nurse Practitioner Family
DX: E78.5 Hyperlipidemia, unspecified (principal)
CPT/HCPCS: 80053; 80061

== ENCOUNTER 2025-04-14 20:25 | Outpatient (REF) | payer MEDICARE, SELFPAY ==
[2025-04-14 20:53] LABS: HCT 43.6 % (36.0-46.0); HGB 14.6 g/dL (11.2-15.7); MCH 29.6 pg (27.0-33.0); MCHC 33.5 % (32.0-36.0); MCV 88 fL (80-95); MPV 9.7 fL (8.0-11.0); Platelet Count 132 10^3/uL (130-400); RBC 4.93 10^6/uL (3.93-5.22); RDW 13.1 % (11.7-14.6); RDW-SD 42.7 fL; WBC 7.10 10^3/uL (4.4-10.8)
[2025-04-14 21:06] LABS: TSH (W/Ref FT4) 1.05 uIU/mL (0.55-4.78)
[2025-04-14 22:19] LABS: ALT 14 U/L (10-49); AST 19 U/L (<34); Albumin 4.4 g/dL (3.2-5.0); Alkaline Phosphatase 103 U/L (46-116); Anion Gap 8.3 mmol/L (3-11); BUN 16 mg/dL (9-23); Bilirubin, Total 0.5 mg/dL (0.2-1.2); CO2 29.7 mmol/L (20.0-31.0); Calcium 9.4 mg/dL (8.3-10.6); Chloride 105 mmol/L (98-107); Cholesterol 154 mg/dL (<200); Glucose 131 mg/dL (74-106); HDL Cholesterol 49 mg/dL (>or=50); Potassium 3.8 mmol/L (3.5-5.1); Sodium 143 mmol/L (136-145); Total Protein 7.6 g/dL (5.7-8.2)
== END 2025-04-14 20:26 | disposition home or self-care (01) ==
LOC: NCHCN 20:25
PROVIDERS: PCP Nurse Practitioner Family; Visit Provider Nurse Practitioner Family
DX: E78.5 Hyperlipidemia, unspecified (principal); R73.03 Prediabetes; E04.9 Nontoxic goiter, unspecified
CPT/HCPCS: 80053; 80061; 85027; 84443